=== PATIENT | male | born 1985 | race Caucasian/White ===

== ENCOUNTER → 2016-03-18 | Outpatient (POV) | LOC: OUTPT 00:01 | PROVIDERS: ATTEND Otolaryngology | DX: H91.90 Unspecified hearing loss, unspecified ear (principal) | CPT/HCPCS: 92557; 92567 ==

== ENCOUNTER 2016-03-22 08:52 | Emergency (ER) ==
[2016-03-22 09:00] VITALS: BP 120/78; TEMP 99.4; BMI 23.4
[2016-03-22] MEDS ORDERED: MORPHINE 4 MG/ML SYRINGE IVP STA ×2 (09:22→10:15)
--- NOTE | 2016-03-22 09:22 | ED.PDOC ---
General ED Provider: Dr. POLO LAWRENCE JR Chief Complaint: Abdominal Pain Stated Complaint: lower abd pain--pain when voids--noted blood in urine--has collected spec on arrival--urine is dark, trinh periumbilcal suprapubic and dysuric pain[End]99.4 125 20 99% 120/78 10/[address] WEISS THIS WEEK, HAS SEEN UROLOGIST FOR STONES IN PAST HAD OSTOMY AT [facility] REVERSED AT [place]. : 02/22/16 : hurting more in the belly for 2 days, Naalehu not helping. Radiology Results: Positive (COLITIS)WBC 14.34 HImmature Gran % (Auto) 1.7Amylase 165 H D Lipase 127 H DUrine Microscopic RBC 5-10. Hydromorphone HCl 1 mg 02/22/16 15:48 02/22/16 16:01. Dilaudid 1 Mg Zofran 4 Mg: Acute Abdominal Pain (ED)Patient is over medicating with pain medications, he took 60 Naalehu, in 6 days, also got Tramadol from the [facility] ER. : 03/10/16 t: c/o stabbing mid/right sided abdominal pain radiating to back.Nausea.Vomited x 3 this morning.Diarrhea x 2 today.Moaning.New onset of leg and knee pain,both legs.Left hurts more than right.Has Crohns,pancreatitis.Says was discharged from [facility] 03/06/16 for abd pain.Says lipase, amylase, WBC were elevated.[End]98.7 113 22 98% 115/68 12/22 none today.Out of Zofran.Says Phenergan works better but does not have any.[End]gradual RUQ periumbilical pain into back.: CT Scan (ABDOMEN NEG PANCREAS CONSIDEER OBSTIPATION OR EARLY COLITIS): 08:27 (DISC WITH dr tesfaye VAIL MEDS-GIVE 2 DAYSFOLLOW UP 1-2DAYS IN OFFICE ): DISC WITH DR TRAMMELL HAS NOT EVALUATED PATIENT- SEEN ORDERED TESTS MEDS OLD : 07:22 (OLD RECORDS REQUESTED). WBC 14.22 HImmature Gran % (Auto) 9.3 H Estimated GFR (MDRD) 114.00 Zofran 4 Mg Pantoprazole 40 mg. 03/10/16 05:57 98.7 F 113 H 22 115/68 98Additional Instructions: constipation is common with pain medication use;CT shows possible inflammation(swelling) which can be a sign of infection;FLAGYL antibiotic for infection- call GASTROENTEROLOGY about antibiotic BEFORE starting Constipation1- increase clear liquids2- help relieve symptoms with enema OR suppository NOT BOTH3- relieve constipation with miralax , would take half a dose twice a dayold records not yet seen from [facility] WITH DR MATHUR DISC LABS-OK WITH PAIN MEDS-2 DAYS AND FOLLOW UP WITHIN 1-2 DAYS IN OFFICE(ALREADY HAVE APPOINTMENT FOR WEDNESDAY)NORCO 7.5 #8 ONE ONLY NEEDEDNo Known Allergies Allergy (Verified 03/10/16 06:07)[Hydrocodon-Acetaminoph 7.5-325 ](Vitamin B-12)Bisacodyl [Naalehu 7.5-325 Tablet] [Flagyl][Miralax] Time Seen by Physician: 09:30 Mode of Arrival: Walk-In Information Source: Patient Exam Limitations: No limitations [facility] and Triage Documentation Reviewed and Agree: No Review of Systems - Review Of Systems Constitutional: Reports: Malaise Eyes: Reports: No symptoms Ears, Nose, Mouth, Throat: Reports: No symptoms Respiratory: Reports: No symptoms Cardiac: Reports: No symptoms GI: Reports: Abdominal pain : Reports: Burning, Dysuria, Frequency, Pain Musculoskeletal: Reports: No symptoms Skin: Reports: No symptoms Neurological: Reports: Anxiety Endocrine: Reports: No symptoms Hematologic/Lymphatic: Reports: No symptoms All Other Systems: Other Past Medical History - Past Medical History Previously Healthy: No Endocrine: Reports: None, Hypothyroid Cardiovascular: Reports: None Respiratory: Reports: None Hematological: Reports: None Gastrointestinal: Reports: Crohn's, Pancreatitis Genitourinary: Reports: Kidney stones Neuro/Psych: Reports: Depression Musculoskeletal: Reports: None Cancer: Reports: None Other Pertinent Past Medical History: CROHNS: freq ER visits with abd pain - Surgical History General Surgical History: Reports: Other (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) - Family History Family History: Reports: Unknown - Social History Smoking Status: Never smoker Hx Substance Use: No (freq ER visits with abd pain) Alcohol Screening: None Physical Exam - Physical Exam Appearance: Well-appearing Pain Distress: Moderate Eyes: DISHA, EOMI, Conjunctiva clear ENT: Ears normal, Nose normal, Oropharynx normal Neck: Supple Respiratory: Airway patent, Breath sounds clear, Breath sounds equal, Respirations nonlabored Cardiovascular: RRR, Pulses normal, No rub, No murmur GI/: Tender (LOWER ABDOMEN TENSE UNABLE TOPALPATE ANY MASSES ORGANS NOT RELIABLY DEMARCATED ON EXAM DUE TO PAIN), Bowel sounds hypoactive Musculoskeletal: Normal strength, ROM intact, No edema, No calf tenderness Skin: Warm, Dry, Normal color Neurological: Sensation intact, Motor intact, Reflexes intact, Cranial nerves intact, Alert, Oriented Psychiatric: Affect appropriate, Mood appropriate Critical Care Note - Critical Care Note Total Time (mins): 0 Course - Course Hematology/Chemistry: 03/22/16 09:30 03/22/16 09:30 Orders, Labs, Meds: Lab Review 03/22/16 03/22/16 09:20 09:30 WBC 10.26 H RBC 3.92 L Hgb 12.0 L Hct 36.1 L MCV 92.1 MCH 30.6 MCHC 33.2 RDW Coeff of Svitlana 14.4 Plt Count 197 Immature Gran % (Auto) 7.0 H Neut % (Auto) 63.6 Lymph % (Auto) 20.5 [place] % (Auto) 7.6 Eos % (Auto) 0.6 Baso % (Auto) 0.7 Immature Gran # (Auto) 0.7 Neut # 6.5 Lymph # 2.1 [place] # 0.8 Eos # 0.1 Baso # 0.1 Sodium 141 Potassium 4.1 Chloride 107 Carbon Dioxide 22 Anion Gap 16.1 BUN 16 Creatinine 0.88 Estimated GFR (MDRD) 100.00 BUN/Creatinine Ratio 18.18 Glucose 92 Calcium 9.0 Total Bilirubin 0.32 AST 11 L ALT 33 Alkaline Phosphatase 52 Total Protein 6.5 Albumin 3.7 Globulin 2.8 Albumin/Globulin Ratio 1.32 Amylase 76 Lipase 20 Urine Color Trinh Urine Clarity Turbid Urine pH 6.0 Ur Specific [place] >=1.030 Urine Protein 3+ Urine Glucose (UA) Negative Urine Ketones Trace Urine Blood 3+ Urine Nitrite Negative Urine Bilirubin 2+ Urine Urobilinogen 1.0 Ur Leukocyte Esterase Negative Urine Microscopic RBC Tntc Urine Microscopic WBC 2-5 Ur Squamous Epith Cells Not present Urine Bacteria Trace Orders Category Date Time Status ED IV/MEDIPORT/POWERPORT .ONCE EMERGENCY 03/22/16 09:22 Active AMYLASE Stat LAB 03/22/16 09:30 Completed CBC W/ AUTO DIFF Stat LAB 03/22/16 09:30 Completed COMPREHENSIVE METABOLIC PANEL Stat LAB 03/22/16 09:30 Completed LIPASE Stat LAB 03/22/16 09:30 Completed URINALYSIS C & S IF INDICATED Stat LAB 03/22/16 09:20 Completed 0.9 % Sodium Chloride [Saline Flush] MEDS 03/22/16 09:22 Active 1 syr IVF PRN PRN Morphine Sulfate [Morphine 4 mg/ml Syringe] MEDS 03/22/16 09:22 Discontinued 4 mg IVP ONCE STA Ondansetron HCl/Pf [Zofran 4 mg/2 ml] MEDS 03/22/16 09:23 Discontinued 4 mg IVP ONCE STA Sodium Chloride 0.9% [Sodium Chloride] 1,000 ml MEDS 03/22/16 09:[address] ABDOMEN/PELVIS WO CONTRAST Stat RADS 03/22/16 09:22 Completed Medications Generic Name Dose Route Start Last Admin Trade Name Freq PRN Reason Stop Dose Admin Sodium Chloride 1,000 mls @ 1,000 mls/hr 03/22/16 09:23 03/22/16 09:48 Sodium Chloride IV 03/22/16 10:22 1,000 mls/hr BOLUS STA Administration Sodium Chloride 1 syr 03/22/16 09:22 03/22/16 09:48 Saline Flush IVF 1 syr PRN PRN Administration To flush IV Discontinued Medications Generic Name Dose Route Start Last Admin Trade Name Freq PRN Reason Stop Dose Admin Morphine Sulfate 4 mg 03/22/16 09:22 03/22/16 09:51 Morphine 4 Mg/Ml Syringe IVP 03/22/16 09:23 4 mg ONCE STA Administration Ondansetron HCl 4 mg 03/22/16 09:23 03/22/16 09:50 Zofran 4 Mg/2 Ml IVP 03/22/16 09:24 4 mg ONCE STA Administration Vital Signs: Temp Pulse Resp BP Pulse Ox 03/22/16 08:52 99.4 F 125 H 20 120/78 99 Departure - Departure Time of Disposition: 10:11 Disposition: HOME SELF-CARE Discharge Problem: Abdominal pain Instructions: Abdominal Pain (ED), Chronic Abdominal Pain (ED) Condition: Stable Pt referred to PMD for follow-up: Yes Additional Instructions: NO EVIDENCE OF STONES ON CT SCAN BLOOD IN URINE WITHOUT INCREASE IN WHITE CELLS DOES NOT INDICATE INFECTION NOR FISTULA INFORM FIRE PREVENTION RESEARCH ENGINEER OF BLOOD IN URINE FOLLOW UP WITH UROLOGIST FOR BLOOD IN URINE FOLLOW UP WITH PMD- CALL TOMORROW FOR FOLLOW UP NORCO FOR PAIN IF OK WITH DR MATHUR ANTIBIOTICS ARE NOT INDICATED CHECK TEMPERATURE (AND RECORD) ONCE A DAY Allergies/Adverse Reactions: Allergies No Known Allergies Allergy (Verified 03/22/16 09:01) Home Medications: Ambulatory Orders Hydrocodone/Acetaminophen [Hydrocodon-Acetaminoph 7.5-325] 7.5 - 325 mg PO Q6H PRN 12/19/15 Cyanocobalamin (Vitamin B-12) [Cyanocobalamin Injection] 1 ea IM DIRECTED Metronidazole [Flagyl] 500 mg PO TID #21 tablet 03/10/16 Cyclobenzaprine HCl 10 mg PO BID PRN #30 03/18/16 Naproxen [Naprosyn] 500 mg PO BID PRN #50 03/18/16 Azathioprine [Imuran] 50 mg PO DAILY #2 03/19/16
[2016-03-22] MEDS ORDERED: ZOFRAN 4 MG/2 ML IVP STA (09:23)
[2016-03-22] MEDS ORDERED: SODIUM CHLORIDE 1,000 ML IV STA (09:23)
[2016-03-22 09:38] LABS: BASOPHILS # (AUTO) 0.1 K/uL (0-0.2); BASOPHILS % (AUTO) 0.7 % (0.0-3.0); EOSINOPHILS # (AUTO) 0.1 K/ul (0.0-0.7); EOSINOPHILS % (AUTO) 0.6 % (0.0-7.0); HEMATOCRIT 36.1 % (42.0-52.0); LYMPHOCYTES # (AUTO) 2.1 K/uL (0.60-3.4); LYMPHOCYTES % (AUTO) 20.5 (10.0-50.0); MEAN CORPUSCULAR HEMOGLOBIN 30.6 pg (27.0-31.0); MEAN CORPUSCULAR HGB CONC 33.2 (31.8-35.4); MEAN CORPUSCULAR VOLUME 92.1 fl (80.0-94.0); MONOCYTES # (AUTO) 0.8 K/uL (0.4-2.0); MONOCYTES % (AUTO) 7.6 (0-10); NEUTROPHILS # (AUTO) 6.5 K/ul (2.0-6.9); NEUTROPHILS % (AUTO) 63.6; PLATELET COUNT 197 10^3/uL (140-440); RED BLOOD COUNT 3.92 10^6/ul (4.70-6.10); WHITE BLOOD COUNT 10.26 K/ul (4.2-10.2)
[2016-03-22 09:40] LABS: BILIRUBIN,URINE 2+ (NEGATIVE); KETONES,URINE Trace (NEGATIVE); LEUKOCYTE ESTERASE ,URINE Negative (NEGATIVE); NITRITE,URINE Negative (NEGATIVE); PROTEIN,URINE 3+ (NEGATIVE); URINE, BLOOD 3+ (NEGATIVE)
[2016-03-22 09:55] LABS: ADD URINE MICROSCOPIC YES
[2016-03-22 09:56] LABS: BACTERIA,URINE TRACE (NOT PRESENT)
--- NOTE | 2016-03-22 09:56 | CT ---
EXAM: CT scan of the abdomen and pelvis without contrast HISTORY: Abdominal pain TECHNIQUE: Imaging of the abdomen and pelvis was performed without intravenous contrast. 3 mm thin axial images and coronal and sagittal reconstructions were provided for interpretation. Comparison 02/22/2016 and 02/04/2016 CT scan of the abdomen and pelvis. FINDINGS: The liver, spleen, pancreas, adrenal glands and kidneys appear normal. The proximal uret ers are normal size. The small and large bowel loops caliber. Changes of right hemicolectomy are ag ain seen. There is no free air. No acute abnormalities are seen within the anterior abdominal wall . The helical images obtained through the pelvis demonstrate an appearance of the rectum. There is sta ble appearance of reticulation of the fat seen surrounding the urinary bladder. There is no free fl uid seen within the pelvis. Lung bases are clear. IMPRESSION: No evidence for small bowel obstruction or ureteral obstruction. Postoperative changes of right hemicolectomy are again seen.
[2016-03-22 09:58] LABS: ALBUMIN 3.7 g/dL (3.4-5.0); ALBUMIN/GLOBULIN RATIO 1.32; ANION GAP 16.1; BILIRUBIN,TOTAL 0.32 mg/dL (0.00-1.20); BUN/CREATININE RATIO 18.18; CREATININE 0.88 mg/dL (0.60-1.10); POTASSIUM 4.1 mmol/L (3.5-5.1); TOTAL PROTEIN 6.5 g/dL (6.4-8.2)
== END 2016-03-22 10:34 | disposition home or self-care (01) ==
LOC: ED 08:52
DX: R10.84 Generalized abdominal pain (principal); R31.9 Hematuria, unspecified; Z79.891 Long term (current) use of opiate analgesic; Z87.19 Personal history of other diseases of the digestive system; Z87.442 Personal history of urinary calculi; Z79.899 Other long term (current) drug therapy
CPT/HCPCS: 36415; 80053; 81001; 82150; 83690; 85025; 96361; 96374; 96375; 99283

== ENCOUNTER 2016-03-30 18:37 | Outpatient (CLI) ==
[2016-03-30 18:56] LABS: HEMATOCRIT 40.2 % (42.0-52.0); HEMOGLOBIN 13.4 g/dl (14.0-18.0); MEAN CORPUSCULAR HEMOGLOBIN 30.9 pg (27.0-31.0); MEAN CORPUSCULAR HGB CONC 33.3 (31.8-35.4); MEAN CORPUSCULAR VOLUME 92.8 fl (80.0-94.0); PLATELET COUNT 232 10^3/uL (140-440); RED BLOOD COUNT 4.33 10^6/ul (4.70-6.10); WHITE BLOOD COUNT 9.38 K/ul (4.2-10.2)
[2016-03-30 19:09] LABS: ANISOCYTOSIS NOT PRESENT (NOT PRESENT)
[2016-03-30 19:11] LABS: ALBUMIN 4.2 g/dL (3.4-5.0); ALBUMIN/GLOBULIN RATIO 1.17; ANION GAP 16.2; BILIRUBIN,TOTAL 0.51 mg/dL (0.00-1.20); BUN/CREATININE RATIO 18.07; CALCIUM 10.1 mg/dL (8.2-10.2); CREATININE 0.83 mg/dL (0.60-1.10); POTASSIUM 4.2 mmol/L (3.5-5.1); TOTAL PROTEIN 7.8 g/dL (6.4-8.2)
== END 2016-03-30 18:38 | disposition home or self-care (01) ==
LOC: LAB 18:37
PROVIDERS: ATTEND General Practice
DX: R31.9 Hematuria, unspecified (principal)
CPT/HCPCS: 36415; 80053; 81001; 82150; 83690; 85007; 85025

== ENCOUNTER 2016-04-03 19:11 | Emergency (ER) ==
[2016-04-03 19:14] VITALS: BP 128/80; TEMP 96.2; BMI 23.3
--- NOTE | 2016-04-03 19:30 | ED.PDOC ---
General ED Provider: Dr. JULEE GONZALEZ-ER Chief Complaint: Rash Stated Complaint: rey got this rash on my neck and legs Time Seen by Physician: 19:28 Mode of Arrival: Walk-In Information Source: Patient Exam Limitations: No limitations [facility] Nursing and Triage Documentation Reviewed and Agree: Yes Skin Complaint Exam - Skin Rash/Itching Complaint/Exam Onset/Duration: one week Symptoms Are: Still present Initial Severity: Mild Current Severity: Mild Location: scalp, neck and legs Potential Exposures: Reports: Unknown Aggravating: Reports: None Alleviating: Reports: None Associated Signs and Symptoms: Denies: Difficulty breathing, Fever, Chills Skin Findings: Present: Pustules, Lesions Differential Diagnoses: Other Review of Systems - Review Of Systems Constitutional: Reports: No symptoms Eyes: Reports: No symptoms Ears, Nose, Mouth, Throat: Reports: No symptoms Respiratory: Reports: No symptoms Cardiac: Reports: No symptoms GI: Reports: No symptoms : Reports: No symptoms Musculoskeletal: Reports: No symptoms Skin: Reports: Rash (noted follicular rash) Neurological: Reports: No symptoms Endocrine: Reports: No symptoms Hematologic/Lymphatic: Reports: No symptoms All Other Systems: Reviewed and Negative Past Medical History - Past Medical History Previously Healthy: No Endocrine: Reports: None, Hypothyroid Cardiovascular: Reports: None Respiratory: Reports: None Hematological: Reports: None Gastrointestinal: Reports: Crohn's, Pancreatitis Genitourinary: Reports: Kidney stones Neuro/Psych: Reports: Depression Musculoskeletal: Reports: None Cancer: Reports: None Other Pertinent Past Medical History: CROHNS: freq ER visits with abd pain - Surgical History General Surgical History: Reports: Other (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) - Family History Family History: Reports: Unknown - Social History Smoking Status: Never smoker Hx Substance Use: No (freq ER visits with abd pain) Alcohol Screening: None Lives: With family Physical Exam - Physical Exam Appearance: Well-appearing, No pain distress, Well-nourished Eyes: DISHA, EOMI, Conjunctiva clear ENT: Ears normal, Nose normal, Oropharynx normal Neck: Supple Respiratory: Airway patent, Breath sounds clear, Breath sounds equal, Respirations nonlabored Cardiovascular: RRR, Pulses normal, No rub, No murmur GI/: Soft, Nontender, No masses, Bowel sounds normal, No Organomegaly Musculoskeletal: Normal strength, ROM intact, No edema, No calf tenderness Skin: Warm (noted follicular rash over scalp, neck and legs), Dry, Normal color Neurological: Sensation intact Psychiatric: Affect appropriate, Mood appropriate Critical Care Note - Critical Care Note Total Time (mins): 0 Course - Course Vital Signs: Temp Pulse Resp BP Pulse Ox 04/03/16 19:13 96.2 F L 115 H 16 128/80 98 Departure - Departure Time of Disposition: 19:30 Disposition: HOME SELF-CARE Discharge Problem: Folliculitis Instructions: Folliculitis (ED) Condition: Good Pt referred to PMD for follow-up: Yes Additional Instructions: minocin 50mg bid x 10 days--f/u with pcp Allergies/Adverse Reactions: Allergies No Known Allergies Allergy (Verified 04/03/16 19:15) Home Medications: Ambulatory Orders Hydrocodone/Acetaminophen [Hydrocodon-Acetaminoph 7.5-325] 7.5 - 325 mg PO Q6H PRN 12/19/15 Cyanocobalamin (Vitamin B-12) [Cyanocobalamin Injection] 1 ea IM DIRECTED Metronidazole [Flagyl] 500 mg PO TID #21 tablet 03/10/16 Naproxen [Naprosyn] 500 mg PO BID PRN #50 03/18/16 Azathioprine [Imuran] 50 mg PO DAILY #2 03/19/16 Hydrocodone/Acetaminophen [[place] 7.5-325 Tablet] 1 each PO QID PRN #6 tablet 10/29 Disposition Discussed With: Patient, Family
== END 2016-04-03 19:43 | disposition home or self-care (01) ==
LOC: ED 19:11
DX: L73.9 Follicular disorder, unspecified (principal)
CPT/HCPCS: 36415; 99283

== ENCOUNTER 2016-04-05 13:49 | Emergency (ER) ==
[2016-04-05 13:49] VITALS: BMI 23.3
[2016-04-05 13:54] VITALS: BP 132/84; TEMP 96.6
[2016-04-05 14:12] LABS: BASOPHILS % (AUTO) 0.2 % (0.0-3.0); EOSINOPHILS % (AUTO) 0.1 % (0.0-7.0); HEMATOCRIT 36.1 % (42.0-52.0); HEMOGLOBIN 12.2 g/dl (14.0-18.0); LYMPHOCYTES # (AUTO) 1.9 K/uL (0.60-3.4); LYMPHOCYTES % (AUTO) 20.2 (10.0-50.0); MEAN CORPUSCULAR HEMOGLOBIN 31.4 pg (27.0-31.0); MEAN CORPUSCULAR HGB CONC 33.8 (31.8-35.4); MONOCYTES # (AUTO) 0.5 K/uL (0.4-2.0); MONOCYTES % (AUTO) 4.9 (0-10); NEUTROPHILS # (AUTO) 6.7 K/ul (2.0-6.9); NEUTROPHILS % (AUTO) 73.6; PLATELET COUNT 195 10^3/uL (140-440); RED BLOOD COUNT 3.88 10^6/ul (4.70-6.10); WHITE BLOOD COUNT 9.14 K/ul (4.2-10.2)
--- NOTE | 2016-04-05 14:31 | CT ---
EXAM: CT abdomen and pelvis without contrast HISTORY: Upper abdominal pain through back. History of Crohn's and pancreatitis. Previous ostomy with reversal and previous intestinal resection. TECHNIQUE: Multi-slice transaxial helical with coronal and sagittal reformed images COMPARISON: CT abdomen/pelvis from 03/22/2016 FINDINGS: The lung bases are free of acute airspace or interstitial opacities. The heart size is no rmal. There are no pericardial or pleural effusions. The hepatic attenuation is normal relative to the spleen. The gallbladder is present without biliar y dilatation. The pancreas and adrenal glands are normal. A calcified granuloma is detected in the otherwise normal spleen. There is a small hemorrhagic or proteinaceous cyst at the interpolar region left kidney posteriorly measuring 2.5 mm. The kidneys are otherwise normal. No nephrolithiasis, ureterolithiasis, or urete ral pelvicaliectasis are appreciated. The nonopacified bladder is grossly normal. The prostate has normal size and attenuation. The intestines have normal caliber without evidence of obstruction or acute inflammation. There is suggestion of a previous right hemicolectomy with reanastomosis. No lymphadenopathy, free air, or f luid collections are detected. The aorta has normal caliber. The bones are free of suspicious osteolytic or osteoblastic lesions. IMPRESSION: 1. No nephrolithiasis, ureterolithiasis, or ureteral pelvicaliectasis. 2. Tiny hemorrhagic or proteinaceous cyst at the interpolar region of the left kidney measuring 2.5 mm. 3. Previous right hemicolectomy with reanastomosis. Nonobstructive intestinal gas pattern.
[2016-04-05 14:33] LABS: ALBUMIN 3.9 g/dL (3.4-5.0); ALBUMIN/GLOBULIN RATIO 1.26; ANION GAP 13.5; BILIRUBIN,TOTAL 0.55 mg/dL (0.00-1.20); BUN/CREATININE RATIO 13.88; CALCIUM 9.5 mg/dL (8.2-10.2); CREATININE 1.08 mg/dL (0.60-1.10); POTASSIUM 3.5 mmol/L (3.5-5.1)
--- NOTE | 2016-04-05 14:41 | ED.PDOC ---
General ED Provider: Dr. SHARAN MCHUGH Chief Complaint: Abdominal Pain Stated Complaint: abdominal pain Time Seen by Physician: 14:00 (EXAMINED AT ALL TIMES WITH KRYSTIAN AT BEDSIDE ) Mode of Arrival: Walk-In Information Source: Patient Exam Limitations: No limitations [facility] Nursing and Triage Documentation Reviewed and Agree: Yes GI Complaint Exam - Abdominal Pain Complaint/Exam Onset: Gradual Duration: 1 day typical pain for which pt has visited E/D BEFORE Symptoms Are: Still present Timing: Constant Initial Severity: Moderate Current Severity: Moderate Location of Pain: Diffuse Character: Reports: Cramping Aggravating: Reports: None Alleviating: Reports: None Associated Signs and Symptoms: Denies: Diaphoresis, Fever, Cough, Chest pain, Dizziness, Back pain, Constipation, Blood in stool, Dysuria, Urinary frequency, Decreased urine output, Decreased appetite, Discharge, Nausea, Vomiting, Diarrhea, Decreased activity Related History: Reports: Similar episode AAA Risk Factors: Reports: None Cardiac Risk Factors: Reports: None Testicular Torsion Risk Factors: Reports: None Surgical Obstruction Risk Factors: Reports: None Related Surgical History: Reports: None Abdominal Findings: Present: None Differential Diagnoses: Appendicitis, Bowel Obstruction, Constipation, Irritable Bowel Syndrome Review of Systems - Review Of Systems Constitutional: Reports: No symptoms Eyes: Reports: No symptoms Ears, Nose, Mouth, Throat: Reports: No symptoms Respiratory: Reports: No symptoms Cardiac: Reports: No symptoms GI: Reports: Abdominal pain : Reports: No symptoms Musculoskeletal: Reports: No symptoms Skin: Reports: No symptoms Neurological: Reports: No symptoms Endocrine: Reports: No symptoms Hematologic/Lymphatic: Reports: No symptoms All Other Systems: Reviewed and Negative Past Medical History - Past Medical History Previously Healthy: No Endocrine: Reports: None, Hypothyroid Cardiovascular: Reports: None Respiratory: Reports: None Hematological: Reports: None Gastrointestinal: Reports: Crohn's, Pancreatitis Genitourinary: Reports: Kidney stones Neuro/Psych: Reports: Depression Musculoskeletal: Reports: None Cancer: Reports: None Other Pertinent Past Medical History: CROHNS: freq ER visits with abd pain - Surgical History General Surgical History: Reports: Other (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) - Family History Family History: Reports: Unknown - Social History Smoking Status: Never smoker Hx Substance Use: No (freq ER visits with abd pain) Alcohol Screening: None Physical Exam - Physical Exam Appearance: Well-appearing, No pain distress, Well-nourished Eyes: DISHA, EOMI, Conjunctiva clear ENT: Ears normal, Nose normal, Oropharynx normal Respiratory: Airway patent, Breath sounds clear, Breath sounds equal, Respirations nonlabored Cardiovascular: RRR, Pulses normal, No rub, No murmur GI/: Soft, Nontender, No masses, Bowel sounds normal, No Organomegaly Musculoskeletal: Normal strength, ROM intact, No edema, No calf tenderness Skin: Warm, Dry, Normal color Neurological: Sensation intact, Motor intact, Reflexes intact, Cranial nerves intact, Alert, Oriented Psychiatric: Affect appropriate, Mood appropriate Interpretation - Radiology Interpretation Radiology Interpretation By: Radiologist Radiology Results: No acute changes Critical Care Note - Critical Care Note Total Time (mins): 0 Course - Course Hematology/Chemistry: 04/05/16 14:10 04/05/16 14:10 Orders, Labs, Meds: Lab Review 04/05/16 14:10 WBC 9.14 RBC 3.88 L Hgb 12.2 L Hct 36.1 L MCV 93.0 MCH 31.4 H MCHC 33.8 RDW Coeff of Svitlana 13.9 Plt Count 195 Immature Gran % (Auto) 1.0 Neut % (Auto) 73.6 Lymph % (Auto) 20.2 [place] % (Auto) 4.9 Eos % (Auto) 0.1 Baso % (Auto) 0.2 Immature Gran # (Auto) 0.1 Neut # 6.7 Lymph # 1.9 [place] # 0.5 Eos # 0.0 Baso # 0.0 Sodium 141 Potassium 3.5 Chloride 104 Carbon Dioxide 27 Anion Gap 13.5 BUN 15 Creatinine 1.08 Estimated GFR (MDRD) 79.00 BUN/Creatinine Ratio 13.88 Glucose 184 H Calcium 9.5 Total Bilirubin 0.55 AST 19 ALT 37 Alkaline Phosphatase 50 Total Protein 7.0 Albumin 3.9 Globulin 3.1 Albumin/Globulin Ratio 1.26 Amylase 42 Lipase 14 Orders Category Date Time Status AMYLASE Stat LAB 04/05/16 14:10 Completed CBC W/ AUTO DIFF Stat LAB 04/05/16 14:10 Completed COMPREHENSIVE METABOLIC PANEL Stat LAB 04/05/16 14:10 Completed LIPASE Stat LAB 04/05/16 14:[address] ABDOMEN/PELVIS WO CONTRAST Stat RADS 04/05/16 14:03 Completed Vital Signs: Temp Pulse Resp BP Pulse Ox 04/05/16 13:51 96.6 F L 82 20 132/84 97 Departure - Departure Time of Disposition: 14:40 (DISCHARGE INST GIVEN WITH SOBIA BOLAND AND CHONG PRESENT ) Disposition: HOME SELF-CARE Discharge Problem: Abdominal pain Instructions: Abdominal Pain (ED), Chronic Abdominal Pain (ED) Condition: Good Pt referred to PMD for follow-up: No Allergies/Adverse Reactions: Allergies No Known Allergies Allergy (Verified 04/03/16 19:15) Home Medications: Ambulatory Orders Hydrocodone/Acetaminophen [Hydrocodon-Acetaminoph 7.5-325] 7.5 - 325 mg PO Q6H PRN 12/19/15 Cyanocobalamin (Vitamin B-12) [Cyanocobalamin Injection] 1 ea IM DIRECTED Metronidazole [Flagyl] 500 mg PO TID #21 tablet 03/10/16 Naproxen [Naprosyn] 500 mg PO BID PRN #50 03/18/16 Azathioprine [Imuran] 50 mg PO DAILY #2 03/19/16
== END 2016-04-05 14:46 | disposition home or self-care (01) ==
LOC: ED 13:49
DX: R10.84 Generalized abdominal pain (principal); Z87.442 Personal history of urinary calculi; Z87.19 Personal history of other diseases of the digestive system; Z79.899 Other long term (current) drug therapy
CPT/HCPCS: 36415; 80053; 82150; 83690; 85025; 99283

== ENCOUNTER 2016-04-06 10:15 | Emergency (ER) ==
[2016-04-06 10:19] VITALS: TEMP 97.1; BMI 23.4
--- NOTE | 2016-04-06 11:14 | ED.PDOC ---
General ED Provider: Dr. SHARAN MCHUGH Chief Complaint: Abdominal Pain Stated Complaint: abdominal pain chronic Time Seen by Physician: 10:19 (chronic issue gemini at bedsie at all times ) Mode of Arrival: Walk-In Information Source: Patient Exam Limitations: No limitations [facility] Nursing and Triage Documentation Reviewed and Agree: Yes GI Complaint Exam - Abdominal Pain Complaint/Exam Onset: Gradual Duration: 1 day Symptoms Are: Still present Timing: Constant Initial Severity: Moderate Current Severity: Moderate Location of Pain: Diffuse Character: Reports: Cramping Aggravating: Reports: None Alleviating: Reports: None Associated Signs and Symptoms: Denies: Diaphoresis, Fever, Cough, Chest pain, Dizziness, Back pain, Constipation, Blood in stool, Dysuria, Urinary frequency, Decreased urine output, Decreased appetite, Discharge, Nausea, Vomiting, Diarrhea, Decreased activity Related History: Reports: Similar episode Cardiac Risk Factors: Reports: None Testicular Torsion Risk Factors: Reports: None Surgical Obstruction Risk Factors: Reports: None Related Surgical History: Reports: None Abdominal Findings: Present: None Differential Diagnoses: Irritable Bowel Syndrome Review of Systems - Review Of Systems Constitutional: Reports: No symptoms Eyes: Reports: No symptoms Ears, Nose, Mouth, Throat: Reports: No symptoms Respiratory: Reports: No symptoms Cardiac: Reports: No symptoms GI: Reports: Abdominal pain : Reports: No symptoms Musculoskeletal: Reports: No symptoms Skin: Reports: No symptoms Neurological: Reports: No symptoms Endocrine: Reports: No symptoms Hematologic/Lymphatic: Reports: No symptoms All Other Systems: Reviewed and Negative Past Medical History - Past Medical History Previously Healthy: No Endocrine: Reports: None, Hypothyroid Cardiovascular: Reports: None Respiratory: Reports: None Hematological: Reports: None Gastrointestinal: Reports: Crohn's, Pancreatitis Genitourinary: Reports: Kidney stones Neuro/Psych: Reports: Depression Musculoskeletal: Reports: None Cancer: Reports: None Other Pertinent Past Medical History: CROHNS: freq ER visits with abd pain - Surgical History General Surgical History: Reports: Other (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) - Family History Family History: Reports: Unknown - Social History Smoking Status: Never smoker Hx Substance Use: No (freq ER visits with abd pain) Alcohol Screening: None Physical Exam - Physical Exam Appearance: Well-appearing, No pain distress, Well-nourished Eyes: DISHA, EOMI, Conjunctiva clear ENT: Ears normal, Nose normal, Oropharynx normal Respiratory: Airway patent, Breath sounds clear, Breath sounds equal, Respirations nonlabored Cardiovascular: RRR, Pulses normal, No rub, No murmur GI/: Soft, Nontender, No masses, Bowel sounds normal, No Organomegaly Musculoskeletal: Normal strength, ROM intact, No edema, No calf tenderness Skin: Warm, Dry, Normal color Neurological: Sensation intact, Motor intact, Reflexes intact, Cranial nerves intact, Alert, Oriented Psychiatric: Affect appropriate, Mood appropriate Critical Care Note - Critical Care Note Total Time (mins): 0 Course - Course Hematology/Chemistry: 04/06/16 11:42 04/06/16 11:42 Orders, Labs, Meds: Lab Review 04/06/16 04/06/16 11:26 11:42 WBC 11.03 H RBC 4.04 L Hgb 12.7 L Hct 37.5 L MCV 92.8 MCH 31.4 H MCHC 33.9 RDW Coeff of Svitlana 13.7 Plt Count 195 Immature Gran % (Auto) 1.7 Neut % (Auto) 81.6 Lymph % (Auto) 11.9 [place] % (Auto) 4.4 Eos % (Auto) 0.1 Baso % (Auto) 0.3 Immature Gran # (Auto) 0.2 Neut # 9.0 H Lymph # 1.3 [place] # 0.5 Eos # 0.0 Baso # 0.0 Sodium 140 Potassium 3.5 Chloride 102 Carbon Dioxide 24 Anion Gap 17.5 BUN 14 Creatinine 1.06 Estimated GFR (MDRD) 81.00 BUN/Creatinine Ratio 13.20 Glucose 102 H D Calcium 9.9 Total Bilirubin 0.70 AST 27 ALT 42 Alkaline Phosphatase 52 Total Protein 7.2 Albumin 4.2 Globulin 3.0 Albumin/Globulin Ratio 1.40 Amylase 56 Lipase 28 Urine Color Yellow Urine Clarity Clear Urine pH 5.5 Ur Specific [place] 1.025 Urine Protein 1+ Urine Glucose (UA) Negative Urine Ketones 2+ Urine Blood 3+ Urine Nitrite Negative Urine Bilirubin 1+ Urine Urobilinogen 0.2 Ur Leukocyte Esterase Negative Urine Microscopic RBC 2-5 Urine Microscopic WBC 0-2 Ur Squamous Epith Cells Not present Orders Category Date Time Status AMYLASE Stat LAB 04/06/16 11:42 Completed CBC W/ AUTO DIFF Stat LAB 04/06/16 11:42 Completed COMPREHENSIVE METABOLIC PANEL Stat LAB 04/06/16 11:42 Completed LIPASE Stat LAB 01/23/17 11:42 Completed UA [URINALYSIS C & S IF INDICATED] Stat LAB 04/06/16 11:26 Completed Ketorolac Tromethamine [Toradol] MEDS 04/06/16 12:44 Discontinued 15 mg IVP ONCE STA Morphine Sulfate [Morphine 4 mg/ml Syringe] MEDS 04/06/16 11:32 Discontinued 2 mg IVP ONCE STA Morphine Sulfate [Morphine 4 mg/ml Syringe] MEDS 04/06/16 12:44 Discontinued 4 mg IVP ONCE STA Ondansetron HCl/Pf [Zofran 4 mg/2 ml] MEDS 04/06/16 11:32 Discontinued 4 mg IVP ONCE STA Ondansetron HCl/Pf [Zofran 4 mg/2 ml] MEDS 04/06/16 12:44 Discontinued 4 mg IVP ONCE STA CT ABDOMEN/PELVIS WO CONTRAST Stat RADS 04/06/16 11:32 Completed Medications Discontinued Medications Generic Name Dose Route Start Last Admin Trade Name Freq PRN Reason Stop Dose Admin Ketorolac Tromethamine 15 mg 04/06/16 12:44 04/06/16 13:00 Toradol IVP 04/06/16 12:45 Not Given ONCE STA Morphine Sulfate 2 mg 04/06/16 11:32 04/06/16 12:08 Morphine 4 Mg/Ml Syringe IVP 04/06/16 11:33 2 mg ONCE STA Administration Morphine Sulfate 4 mg 04/06/16 12:44 04/06/16 13:00 Morphine 4 Mg/Ml Syringe IVP 04/06/16 12:45 Not Given ONCE STA Ondansetron HCl 4 mg 04/06/16 11:32 04/06/16 12:07 Zofran 4 Mg/2 Ml IVP 04/06/16 11:33 4 mg ONCE STA Administration Ondansetron HCl 4 mg 04/06/16 12:44 04/06/16 13:00 Zofran 4 Mg/2 Ml IVP 04/06/16 12:45 Not Given ONCE STA Vital Signs: Temp Pulse Resp BP Pulse Ox 04/06/16 12:09 110 H 20 110/69 98 04/06/16 10:16 97.1 F L 124 H 16 106/62 98 Departure - Departure Time of Disposition: 11:13 (chronic pain issue refused to provide urine undersupervision of MD ) Disposition: HOME SELF-CARE Discharge Problem: Hematuria Abdominal pain Qualifiers: Abdominal location: generalized Qualifier Code: (R10.84) Generalized abdominal pain Instructions: Abdominal Pain (ED), Hematuria (ED) Condition: Good Pt referred to PMD for follow-up: No Additional Instructions: Please call your Family Physician as soon as possible to schedule a follow-up appointment. Allergies/Adverse Reactions: Allergies No Known Allergies Allergy (Verified 04/06/16 10:20) Home Medications: Ambulatory Orders Hydrocodone/Acetaminophen [Hydrocodon-Acetaminoph 7.5-325] 7.5 - 325 mg PO Q6H PRN 12/19/15 Cyanocobalamin (Vitamin B-12) [Cyanocobalamin Injection] 1 ea IM DIRECTED Metronidazole [Flagyl] 500 mg PO TID #21 tablet 03/10/16 Naproxen [Naprosyn] 500 mg PO BID PRN #50 03/18/16 Azathioprine [Imuran] 50 mg PO DAILY #2 03/19/16 Disposition Discussed With: Patient
[2016-04-06 11:28] LABS: BILIRUBIN,URINE 1+ (NEGATIVE); KETONES,URINE 2+ (NEGATIVE); LEUKOCYTE ESTERASE ,URINE Negative (NEGATIVE); NITRITE,URINE Negative (NEGATIVE); PH,URINE 5.5 (5-9); PROTEIN,URINE 1+ (NEGATIVE); URINE, BLOOD 3+ (NEGATIVE)
[2016-04-06 11:29] LABS: ADD URINE MICROSCOPIC YES
[2016-04-06] MEDS ORDERED: ZOFRAN 4 MG/2 ML IVP STA ×2 (11:32→12:44)
[2016-04-06] MEDS ORDERED: MORPHINE 4 MG/ML SYRINGE IVP STA ×2 (11:32→12:44)
[2016-04-06 11:44] LABS: BASOPHILS % (AUTO) 0.3 % (0.0-3.0); EOSINOPHILS % (AUTO) 0.1 % (0.0-7.0); HEMATOCRIT 37.5 % (42.0-52.0); HEMOGLOBIN 12.7 g/dl (14.0-18.0); IMMATURE GRANULOCYTE % (AUTO) 1.7 % (0.0-5.0); LYMPHOCYTES # (AUTO) 1.3 K/uL (0.60-3.4); LYMPHOCYTES % (AUTO) 11.9 (10.0-50.0); MEAN CORPUSCULAR HEMOGLOBIN 31.4 pg (27.0-31.0); MEAN CORPUSCULAR HGB CONC 33.9 (31.8-35.4); MEAN CORPUSCULAR VOLUME 92.8 fl (80.0-94.0); MONOCYTES # (AUTO) 0.5 K/uL (0.4-2.0); MONOCYTES % (AUTO) 4.4 (0-10); NEUTROPHILS % (AUTO) 81.6; PLATELET COUNT 195 10^3/uL (140-440); RED BLOOD COUNT 4.04 10^6/ul (4.70-6.10); WHITE BLOOD COUNT 11.03 K/ul (4.2-10.2)
[2016-04-06 12:07] LABS: ALBUMIN 4.2 g/dL (3.4-5.0); ALBUMIN/GLOBULIN RATIO 1.4; ANION GAP 17.5; BILIRUBIN,TOTAL 0.7 mg/dL (0.00-1.20); BUN/CREATININE RATIO 13.2; CALCIUM 9.9 mg/dL (8.2-10.2); CREATININE 1.06 mg/dL (0.60-1.10); POTASSIUM 3.5 mmol/L (3.5-5.1); TOTAL PROTEIN 7.2 g/dL (6.4-8.2)
[2016-04-06 12:10] VITALS: BP 110/69
[2016-04-06] MEDS ORDERED: TORADOL IVP STA (12:44)
--- NOTE | 2016-04-06 12:51 | CT ---
Noncontrasted CT examination of the abdomen pelvis. Comparison: 04/05/2016. Reason for study: Pain. FINDINGS: Within the partially imaged lung bases, no pneumothorax, pleural effusion, or focal conso lidation. The heart is not enlarged. Within the limitations of a noncontrast examination, the liver, spleen, gallbladder, adrenal glands, pancreas, and kidneys are unchanged. The previously described cyst in the left kidney is not signi ficantly changed from the prior exam. There is no focal bowel dilatation. Operative changes are seen in the right lower quadrant. There is air seen to the level of the rectum. Mildly increased size and number of the mesenteric lymph nodes. No intra-abdominal free air or pelvic free fluid. The osseous structures are unremarkable. Impression: 1. No acute findings are seen within the abdomen or pelvis. 2. Mildly increased size and number of the mesenteric lymph nodes may be reactive, mesenteritis, or enteritis.
== END 2016-04-06 13:41 | disposition home or self-care (01) ==
LOC: ED 10:15
DX: R10.84 Generalized abdominal pain (principal); G89.29 Other chronic pain; R31.9 Hematuria, unspecified
CPT/HCPCS: 36415; 80053; 81001; 82150; 83690; 85025; 96372; 99283

== ENCOUNTER 2016-04-26 06:41 | Emergency (ER) ==
[2016-04-26 06:53] VITALS: BP 98/76; TEMP 98.8; BMI 23.3
--- NOTE | 2016-04-26 07:27 | ED.PDOC ---
General ED Provider: Dr. POLO LAWRENCE JR Chief Complaint: Abdominal Pain Stated Complaint: C/O STABBING PAIN TO WHOLE ABD AREA,MORE PAIN IN MID ABD.STATES PAIN GOES THROUGH INTO THE RIGHT SIDE OF BACK.STATES EMESIS X3 THIS MORNING[End]98.8 111 20 99% 98/76 9/10 c/o recurrent pain ...seen in this er frequently for same problem[End] Time Seen by Physician: 07:25 Mode of Arrival: Walk-In Information Source: Patient Exam Limitations: No limitations [facility] Nursing and Triage Documentation Reviewed and Agree: No Review of Systems - Review Of Systems Constitutional: Reports: Malaise, Loss of appetite Eyes: Reports: No symptoms Ears, Nose, Mouth, Throat: Reports: No symptoms Respiratory: Reports: No symptoms Cardiac: Reports: No symptoms GI: Reports: Abdominal pain, Nausea, Vomiting : Reports: Pain Musculoskeletal: Reports: No symptoms Skin: Reports: No symptoms Neurological: Reports: No symptoms Endocrine: Reports: No symptoms Hematologic/Lymphatic: Reports: No symptoms All Other Systems: Other Past Medical History - Past Medical History Previously Healthy: No Endocrine: Reports: None, Hypothyroid, Dyslipidemia Cardiovascular: Reports: None Respiratory: Reports: None Hematological: Reports: None Gastrointestinal: Reports: GERD, Crohn's, Pancreatitis Genitourinary: Reports: Kidney stones Neuro/Psych: Reports: Depression Musculoskeletal: Reports: None Cancer: Reports: None Other Pertinent Past Medical History: CROHNS: freq ER visits with abd pain - Surgical History General Surgical History: Reports: Other (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, INTESTINAL RESECTION) - Family History Family History: Reports: Unknown - Social History Smoking Status: Never smoker Hx Substance Use: No (freq ER visits with abd pain) Alcohol Screening: None - Immunizations Tetanus Shot up to Date: Yes Physical Exam - Physical Exam Appearance: Ill-appearing, Thin Ill-appearing: Mild Pain Distress: Severe Eyes: DISHA, EOMI, Conjunctiva clear ENT: Ears normal, Nose normal, Oropharynx normal Neck: Supple Respiratory: Airway patent, Breath sounds clear, Breath sounds equal, Respirations nonlabored Cardiovascular: RRR, Pulses normal, No rub, No murmur GI/: No masses, Tender, Bowel sounds hypoactive Musculoskeletal: Normal strength, ROM intact, No edema, No calf tenderness Skin: Warm, Normal color, Diaphoretic Neurological: Sensation intact, Motor intact, Reflexes intact, Cranial nerves intact, Alert, Oriented Psychiatric: Anxious Re-Evaluation - Re-Evaluation Time of Re-Evaluation: 08:55 Status: Improved (STATES MS WEARING OFF- NOTE PATIETN NOT SEEING DR MATHUR PER PATIENT- WILL NEED PMD(INFORMED PATIETN "I DO NOT WANT FOR HIM TO COME TO ER)") Critical Care Note - Critical Care Note Total Time (mins): 20 Course - Course Hematology/Chemistry: 04/26/16 07:55 04/26/16 07:55 Orders, Labs, Meds: Lab Review 04/26/16 02 07:55 08:42 WBC 9.19 RBC 3.84 L Hgb 12.3 L Hct 34.8 L MCV 90.6 MCH 32.0 H MCHC 35.3 RDW Coeff of Svitl[place] 13.9 Plt Count 232 Immature Gran % (Auto) 0.4 Neut % (Auto) 68.5 Lymph % (Auto) 20.8 [place] % (Auto) 8.8 Eos % (Auto) 1.2 Baso % (Auto) 0.3 Immature Gran # (Auto) 0.0 Neut # 6.3 Lymph # 1.9 [place] # 0.8 Eos # 0.1 Baso # 0.0 Sodium 141 Potassium 3.7 Chloride 106 Carbon Dioxide 25 Anion Gap 13.7 BUN 8 Creatinine 0.87 Estimated GFR (MDRD) 102.00 BUN/Creatinine Ratio 9.19 Glucose 86 Calcium 9.2 Total Bilirubin 0.64 AST 45 H ALT 70 Alkaline Phosphatase 64 Total Protein 6.9 Albumin 4.0 Globulin 2.9 Albumin/Globulin Ratio 1.38 Amylase 54 Lipase 18 Procalcitonin < 0.05 Urine Color Yellow Urine Clarity Clear Urine pH 5.5 Ur Specific [place] 1.025 Urine Protein Negative Urine Glucose (UA) Negative Urine Ketones Negative Urine Blood Negative Urine Nitrite Negative Urine Bilirubin Negative Urine Urobilinogen 0.2 Ur Leukocyte Esterase Negative Orders Category Date Time Status EKG-(ED ONLY) Stat CARDIO 04/26/16 07:49 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 04/26/16 07:49 Active ED IV/MEDIPORT/POWERPORT .ONCE EMERGENCY 04/26/16 07:42 Active Wound care [ED WOUND CARE] .ONCE EMERGENCY 04/26/16 08:21 Inactive AMYLASE Stat LAB 04/26/16 07:55 Completed CBC W/ AUTO DIFF Stat LAB 04/26/16 07:55 Completed COMPREHENSIVE METABOLIC PANEL Stat LAB 04/26/16 07:55 Completed DRUG SCREEN, URINE, RAPID Stat LAB 04/26/16 07:49 Received LIPASE Stat LAB 04/26/16 07:55 Completed PROCALCITONIN Stat LAB 04/26/16 07:55 Completed URINALYSIS C & S IF INDICATED Stat LAB 04/26/16 08:42 Completed 0.9 % Sodium Chloride [Saline Flush] MEDS 04/26/16 07:42 Active 1 syr IVF PRN PRN Morphine Sulfate [Morphine 4 mg/ml Syringe] MEDS 04/26/16 07:43 Discontinued 4 mg IVP ONCE STA Morphine Sulfate [Morphine 4 mg/ml Syringe] MEDS 04/26/16 07:47 Discontinued 4 mg IVP ONCE STA Mupirocin [Bactroban] MEDS 04/26/16 08:22 Discontinued 1 applic TP ONCE STA Ondansetron HCl/Pf [Zofran 4 mg/2 ml] MEDS 04/26/16 07:43 Discontinued 4 mg IVP ONCE STA Sodium Chloride 0.9% [Sodium Chloride] 1,000 ml MEDS 04/26/16 07:[address] ABDOMEN/PELVIS WO CONTRAST Stat RADS 04/26/16 07:42 Completed Medications Generic Name Dose Route Start Last Admin Trade Name Freq PRN Reason Stop Dose Admin Sodium Chloride 1 syr 04/26/16 07:42 Saline Flush IVF PRN PRN To flush IV Discontinued Medications Generic Name Dose Route Start Last Admin Trade Name Freq PRN Reason Stop Dose Admin Sodium Chloride 1,000 mls @ 1,000 mls/hr 04/26/16 07:49 04/26/16 08:01 Sodium Chloride IV 04/26/16 08:48 1,000 mls/hr BOLUS STA Administration Morphine Sulfate 4 mg 04/26/16 07:43 04/26/16 08:14 Morphine 4 Mg/Ml Syringe IVP 04/26/16 07:44 4 mg ONCE STA Administration Morphine Sulfate 4 mg 04/26/16 07:47 Morphine 4 Mg/Ml Syringe IVP 04/26/16 07:48 ONCE STA Mupirocin 1 applic 04/26/16 08:22 Bactroban TP 04/26/16 08:23 ONCE STA Ondansetron HCl 4 mg 04/26/16 07:43 04/26/16 08:13 Zofran 4 Mg/2 Ml IVP 04/26/16 07:44 4 mg ONCE STA Administration Vital Signs: Temp Pulse Resp BP Pulse Ox 04/26/16 06:44 98.8 F 111 H 20 98/76 99 Departure - Departure Time of Disposition: 08:41 Disposition: HOME SELF-CARE Discharge Problem: Abdominal pain Instructions: Chronic Abdominal Pain (ED) Condition: Good Pt referred to PMD for follow-up: Yes Additional Instructions: call PMD in morning inform of pain medication prescription and arrange follow up may call Dr WEISS OFFICE IN MORNING - CONSIDER REFERRAL FOR PMD IF NO LOCAL PMD INFORM HERE OFFICE OF NEW CT ABDOMEN note increase lymph nodes in abdomen but CT scan otherwise normal check temperature twice a day and inform PMD of results AST is minimally elevated other labs are all normal Prescriptions: Hydrocodone Bit/Acetaminophen [[place] 7.5-325] 1 each PO Q6HR PRN #5 tablet PRN Reason: Severe Pain Ondansetron HCl [Zofran Tab] 4 mg PO QID PRN #12 tablet PRN Reason: Nausea / Vomiting Allergies/Adverse Reactions: Allergies No Known Allergies Allergy (Verified 04/26/16 07:02) Home Medications: Ambulatory Orders Hydrocodone/Acetaminophen [Hydrocodon-Acetaminoph 7.5-325] 7.5 - 325 mg PO Q6H PRN 12/19/15 Cyanocobalamin (Vitamin B-12) [Cyanocobalamin Injection] 1 ea IM DIRECTED Naproxen [Naprosyn] 500 mg PO BID PRN #50 03/18/16 Azathioprine [Imuran] 50 mg PO DAILY #2 03/19/16 Hydrocodone Bit/Acetaminophen [[place] 7.5-325] 1 each PO Q6HR PRN #5 tablet 04/26 Metronidazole [Flagyl] 500 mg PO BID 04/26/16 Ondansetron HCl [Zofran Tab] 4 mg PO QID PRN #12 tablet 04/26/16
[2016-04-26] MEDS ORDERED: MORPHINE 4 MG/ML SYRINGE IVP STA ×2 (07:43→07:47)
[2016-04-26] MEDS ORDERED: ZOFRAN 4 MG/2 ML IVP STA (07:43)
[2016-04-26] MEDS ORDERED: SODIUM CHLORIDE 1,000 ML IV STA (07:49)
[2016-04-26 08:02] LABS: BASOPHILS % (AUTO) 0.3 % (0.0-3.0); EOSINOPHILS # (AUTO) 0.1 K/ul (0.0-0.7); EOSINOPHILS % (AUTO) 1.2 % (0.0-7.0); HEMATOCRIT 34.8 % (42.0-52.0); HEMOGLOBIN 12.3 g/dl (14.0-18.0); IMMATURE GRANULOCYTE % (AUTO) 0.4 % (0.0-5.0); LYMPHOCYTES # (AUTO) 1.9 K/uL (0.60-3.4); LYMPHOCYTES % (AUTO) 20.8 (10.0-50.0); MEAN CORPUSCULAR HGB CONC 35.3 (31.8-35.4); MEAN CORPUSCULAR VOLUME 90.6 fl (80.0-94.0); MONOCYTES # (AUTO) 0.8 K/uL (0.4-2.0); MONOCYTES % (AUTO) 8.8 (0-10); NEUTROPHILS # (AUTO) 6.3 K/ul (2.0-6.9); NEUTROPHILS % (AUTO) 68.5; PLATELET COUNT 232 10^3/uL (140-440); RED BLOOD COUNT 3.84 10^6/ul (4.70-6.10); WHITE BLOOD COUNT 9.19 K/ul (4.2-10.2)
[2016-04-26 08:22] LABS: ALBUMIN/GLOBULIN RATIO 1.38; ANION GAP 13.7; BILIRUBIN,TOTAL 0.64 mg/dL (0.00-1.20); BUN/CREATININE RATIO 9.19; CALCIUM 9.2 mg/dL (8.2-10.2); CREATININE 0.87 mg/dL (0.60-1.10); POTASSIUM 3.7 mmol/L (3.5-5.1); TOTAL PROTEIN 6.9 g/dL (6.4-8.2)
[2016-04-26] MEDS ORDERED: BACTROBAN TP STA (08:22)
--- NOTE | 2016-04-26 08:35 | CT ---
Examination: Noncontrast helical CT examination of the abdomen pelvis. Comparison: 04/06/2016. Reason for study: Abdominal pain. FINDINGS: Examination is limited by the lack of intravenous or oral contrast administration. Within the partially imaged lung bases. There are no pneumothoraces, pleural effusions, focal conso lidation. The heart is not enlarged. Within the limitations of a noncontrasted study, the liver, spleen, adrenal glands, pancreas, and ga llbladder are unremarkable. There are small sub-centimeter hemorrhagic cyst seen within both kidneys. There is no focal bowel dilatation or transition point. Operative changes are seen after partial co lectomy. The majority of the large intestine is fluid-filled to the level of the rectosigmoid. Increase in size and number of the mesenteric lymph nodes suggesting enteritis. Impression: 1. Fluid-filled loops of large intestine without focal transition or wall thickening and prominent mesenteric lymph nodes consistent with enteritis. 2. Tiny hemorrhagic renal cysts. 3. Postoperative change.
[2016-04-26 08:52] LABS: BILIRUBIN,URINE Negative (NEGATIVE); KETONES,URINE Negative (NEGATIVE); LEUKOCYTE ESTERASE ,URINE Negative (NEGATIVE); NITRITE,URINE Negative (NEGATIVE); PH,URINE 5.5 (5-9); PROTEIN,URINE Negative (NEGATIVE); URINE, BLOOD Negative (NEGATIVE)
[2016-04-26 08:53] LABS: ADD URINE MICROSCOPIC NO
[2016-04-26 09:03] LABS: COCAIN SCREEN,URINE NEGATIVE (NEGATIVE)
== END 2016-04-26 09:05 | disposition home or self-care (01) ==
LOC: ED 06:41
DX: R10.84 Generalized abdominal pain (principal); G89.29 Other chronic pain; I88.0 Nonspecific mesenteric lymphadenitis; Z79.891 Long term (current) use of opiate analgesic; Z79.899 Other long term (current) drug therapy
CPT/HCPCS: 36415; 80053; 80306; 81001; 82150; 83690; 84145; 85025; 96361; 96374; 96375; 99283

== ENCOUNTER 2016-05-03 13:12 | Emergency (ER) ==
[2016-05-03 13:16] VITALS: BP 114/56; TEMP 98.8; BMI 23.9
--- NOTE | 2016-05-03 14:17 | ED.PDOC ---
General ED Provider: Dr. SHARAN MCHUGH Chief Complaint: Non-specific Complaint Stated Complaint: lump posterior scalp and right knee Time Seen by Physician: 13:13 Information Source: Patient Exam Limitations: No limitations [facility] and Triage Documentation Reviewed and Agree: Yes Musculoskeletal Complaint Exam - Knee Pain Complaint/Exam Mechanism of Injury: Reports: No known trauma (lump noted by pt 1 day ago) Onset/Duration: 13:12 Symptoms Are: Still present Initial Severity: Mild Current Severity: Mild Location: Reports: Discrete Character: Reports: Aching Alleviating: Reports: None Aggravating: Reports: None Associated Signs and Symptoms: Denies: Swelling, Redness, Bruising, Fever, Weakness, Numbness, Tingling Able to Bear Weight: Yes Related History: Reports: Similar episode Septic Arthritis Risk Factors: Reports: None Gout Risk Factors: Reports: None Yaritza Test Positive: No Marshal Test Positive: No Differential Diagnoses: Closed Fracture, [place]-Schlatter Disease, Sprain, Strain Review of Systems - Review Of Systems Constitutional: Reports: No symptoms Eyes: Reports: No symptoms Ears, Nose, Mouth, Throat: Reports: No symptoms Respiratory: Reports: No symptoms Cardiac: Reports: No symptoms GI: Reports: No symptoms : Reports: No symptoms Musculoskeletal: Reports: Joint pain Skin: Reports: No symptoms Neurological: Reports: No symptoms Endocrine: Reports: No symptoms Hematologic/Lymphatic: Reports: No symptoms All Other Systems: Reviewed and Negative Past Medical History - Past Medical History Previously Healthy: No Endocrine: Reports: None, Hypothyroid, Dyslipidemia Cardiovascular: Reports: None Respiratory: Reports: None Hematological: Reports: None Gastrointestinal: Reports: GERD, Crohn's, Pancreatitis Genitourinary: Reports: Kidney stones Neuro/Psych: Reports: Depression Musculoskeletal: Reports: None Cancer: Reports: None Other Pertinent Past Medical History: CROHNS: freq ER visits with abd pain - Surgical History General Surgical History: Reports: Other (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, INTESTINAL RESECTION) - Family History Family History: Reports: Unknown - Social History Smoking Status: Never smoker Hx Substance Use: No (freq ER visits with abd pain) Alcohol Screening: None Physical Exam - Physical Exam Appearance: Well-appearing, No pain distress, Well-nourished Eyes: DISHA, EOMI, Conjunctiva clear ENT: Ears normal, Nose normal, Oropharynx normal Respiratory: Airway patent, Breath sounds clear, Breath sounds equal, Respirations nonlabored Cardiovascular: RRR, Pulses normal, No rub, No murmur GI/: Soft, Nontender, No masses, Bowel sounds normal, No Organomegaly Musculoskeletal: Normal strength, ROM intact, No edema, No calf tenderness Skin: Warm, Dry, Normal color Neurological: Sensation intact, Motor intact, Reflexes intact, Cranial nerves intact, Alert, Oriented Psychiatric: Affect appropriate, Mood appropriate Critical Care Note - Critical Care Note Total Time (mins): 0 Course - Course Vital Signs: Temp Pulse Resp BP Pulse Ox 05/03/16 13:12 98.8 F 92 H 16 114/56 L 99 Departure - Departure Time of Disposition: 14:16 (isabella at bedside ) Disposition: HOME SELF-CARE Discharge Problem: Knee pain Instructions: Knee Pain (ED), Arthralgia (ED) Condition: Good Pt referred to PMD for follow-up: Yes Additional Instructions: Follow up before 10am on 05/04/2016 for ultrasound Allergies/Adverse Reactions: Allergies No Known Allergies Allergy (Verified 05/03/16 13:20) Home Medications: Ambulatory Orders Hydrocodone/Acetaminophen [Hydrocodon-Acetaminoph 7.5-325] 7.5 - 325 mg PO Q6H PRN 12/19/15 Cyanocobalamin (Vitamin B-12) [Cyanocobalamin Injection] 1 ea IM DIRECTED Ondansetron HCl [Zofran Tab] 4 mg PO QID PRN #12 tablet 04/26/16 Adalimumab [Humira] 40 mg SQ DIRECTED 05/03/16
== END 2016-05-03 14:33 | disposition home or self-care (01) ==
LOC: ED 13:12
DX: M25.569 Pain in unspecified knee (principal)
CPT/HCPCS: 99282

== ENCOUNTER 2016-05-10 10:43 | Emergency (ER) ==
[2016-05-10 10:48] VITALS: BP 120/62; TEMP 97.6; BMI 23.4
[2016-05-10] MEDS ORDERED: ZOFRAN 4 MG/2 ML IM STA (10:57)
[2016-05-10] MEDS ORDERED: DEMEROL 25 MG/ML SYRINGE IM STA (10:57)
--- NOTE | 2016-05-10 11:00 | ED.PDOC ---
General ED Provider: Dr. SANTIAGO DANIELS Chief Complaint: Abdominal Pain Stated Complaint: Abdominal pain, Dr hathaway dropped me, am not getting any pain medications now, started hurting since morning, same pain, just need help with pain, no diarrhea, has f/u with Gi next week, on ira Time Seen by Physician: 10:58 Mode of Arrival: Walk-In Information Source: Patient Primary Care Provider[facility] Nursing and Triage Documentation Reviewed and Agree: Yes GI Complaint Exam - Abdominal Pain Complaint/Exam Onset: Gradual Symptoms Are: Still present Timing: Constant Initial Severity: Moderate Current Severity: Moderate Location of Pain: Diffuse Character: Reports: Dull, Aching Aggravating: Reports: Movement Alleviating: Reports: Antacids Associated Signs and Symptoms: Reports: Nausea. Denies: Diaphoresis, Fever, Cough, Chest pain, Dizziness, Back pain, Constipation, Blood in stool, Dysuria, Urinary frequency, Decreased urine output, Decreased appetite, Discharge, Vomiting, Diarrhea, Decreased activity Related History: Reports: Similar episode AAA Risk Factors: Reports: None Cardiac Risk Factors: Reports: None Testicular Torsion Risk Factors: Reports: None Surgical Obstruction Risk Factors: Reports: None Related Surgical History: Reports: None Abdominal Findings: Absent: Pulsatile mass, Abdominal distention, Unequal femoral pulses Differential Diagnoses: Other (colitis with chronic pain.) Review of Systems - Review Of Systems Constitutional: Reports: No symptoms Eyes: Reports: No symptoms Ears, Nose, Mouth, Throat: Reports: No symptoms Respiratory: Reports: No symptoms Cardiac: Reports: No symptoms GI: Reports: Abdominal pain : Reports: No symptoms Musculoskeletal: Reports: No symptoms Skin: Reports: No symptoms Neurological: Reports: No symptoms Endocrine: Reports: No symptoms Hematologic/Lymphatic: Reports: No symptoms All Other Systems: Reviewed and Negative Past Medical History - Past Medical History Previously Healthy: No Endocrine: Reports: None, Hypothyroid, Dyslipidemia Cardiovascular: Reports: None Respiratory: Reports: None Hematological: Reports: None Gastrointestinal: Reports: GERD, Crohn's, Pancreatitis Genitourinary: Reports: Kidney stones Neuro/Psych: Reports: Depression Musculoskeletal: Reports: None Cancer: Reports: None Other Pertinent Past Medical History: CROHNS: freq ER visits with abd pain - Surgical History General Surgical History: Reports: Other (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, INTESTINAL RESECTION) - Family History Family History: Reports: Unknown - Social History Smoking Status: Never smoker Hx Substance Use: No (freq ER visits with abd pain) Alcohol Screening: None - Immunizations Tetanus Shot up to Date: Yes Physical Exam - Physical Exam Appearance: Well-appearing, Thin Eyes: DISHA, EOMI, Conjunctiva clear ENT: Ears normal, Nose normal, Oropharynx normal Respiratory: Airway patent, Breath sounds clear, Breath sounds equal, Respirations nonlabored Cardiovascular: RRR, Pulses normal, No rub, No murmur GI/: Soft, Tender, Bowel sounds hypoactive Musculoskeletal: Normal strength, ROM intact, No edema, No calf tenderness Skin: Warm, Dry, Normal color Neurological: Sensation intact, Motor intact, Reflexes intact, Cranial nerves intact, Alert, Oriented Psychiatric: Affect appropriate, Mood appropriate Critical Care Note - Critical Care Note Total Time (mins): 0 Course - Course Orders, Labs, Meds: Orders Category Date Time Status Meperidine HCl/Pf [Demerol 25 mg/ml Syringe] MEDS 05/10/16 10:57 Stat 25 mg IM ONCE STA Ondansetron HCl/Pf [Zofran 4 mg/2 ml] MEDS 05/10/16 10:57 Stat 4 mg IM ONCE STA Medications Discontinued Medications Generic Name Dose Route Start Last Admin Trade Name Freq PRN Reason Stop Dose Admin Meperidine HCl 25 mg 05/10/16 10:57 Demerol 25 Mg/Ml Syringe IM 05/10/16 10:58 ONCE STA Ondansetron HCl 4 mg 05/10/16 10:57 Zofran 4 Mg/2 Ml IM 05/10/16 10:58 ONCE STA Vital Signs: Temp Pulse Resp BP Pulse Ox 05/10/16 10:44 97.6 F 120 H 22 120/62 99 Departure - Departure Time of Disposition: 11:02 Disposition: HOME SELF-CARE Discharge Problem: Abdominal pain Instructions: Abdominal Pain (ED) Condition: Stable Pt referred to PMD for follow-up: Yes Additional Instructions: Increase hydration keep f/u with Gi Prescriptions: Hydrocodone/Acetaminophen [[place] 5-325 Tablet] 1 tab PO TID PRN #12 tablet PRN Reason: PAIN Allergies/Adverse Reactions: Allergies No Known Allergies Allergy (Verified 05/03/16 13:20) Home Medications: Ambulatory Orders Hydrocodone/Acetaminophen [Hydrocodon-Acetaminoph 7.5-325] 7.5 - 325 mg PO Q6H PRN 12/19/15 Cyanocobalamin (Vitamin B-12) [Cyanocobalamin Injection] 1 ea IM DIRECTED Ondansetron HCl [Zofran Tab] 4 mg PO QID PRN #12 tablet 04/26/16 Adalimumab [Humira] 40 mg SQ DIRECTED 05/03/16 Disposition Discussed With: Patient
== END 2016-05-10 11:38 | disposition home or self-care (01) ==
LOC: ED 10:43
DX: R10.84 Generalized abdominal pain (principal)
CPT/HCPCS: 96372; 99283

== ENCOUNTER 2016-05-17 04:32 | Emergency (ER) ==
[2016-05-17 04:32] VITALS: BMI 23.4
[2016-05-17 04:42] VITALS: BP 117/82; TEMP 97.5
[2016-05-17] MEDS ORDERED: TORADOL IM STA (05:05)
[2016-05-17 05:15] LABS: BASOPHILS % (AUTO) 0.3 % (0.0-3.0); EOSINOPHILS # (AUTO) 0.2 K/ul (0.0-0.7); EOSINOPHILS % (AUTO) 3.1 % (0.0-7.0); HEMATOCRIT 35.8 % (42.0-52.0); HEMOGLOBIN 12.7 g/dl (14.0-18.0); LYMPHOCYTES # (AUTO) 2.5 K/uL (0.60-3.4); LYMPHOCYTES % (AUTO) 35.3 (10.0-50.0); MEAN CORPUSCULAR HGB CONC 35.5 (31.8-35.4); MEAN CORPUSCULAR VOLUME 90.2 fl (80.0-94.0); MONOCYTES % (AUTO) 13.9 (0-10); NEUTROPHILS # (AUTO) 3.3 K/ul (2.0-6.9); NEUTROPHILS % (AUTO) 46.4; PLATELET COUNT 221 10^3/uL (140-440); RED BLOOD COUNT 3.97 10^6/ul (4.70-6.10); WHITE BLOOD COUNT 7.13 K/ul (4.2-10.2)
--- NOTE | 2016-05-17 05:29 | ED.PDOC ---
General ED Provider: Dr. URMILA TRAMMELL Chief Complaint: Abdominal Pain Stated Complaint: patient states he has had mid abdominal and right lower abdomeninal pain that started 2 days ago. states he has an APt with Dr Worthington in [place] in one month. Last week he told Dr Cerda that he had an Apt with Her this week. Has been to the ER for chronic pain multiple times and has had 23 Cts of the Abdomen since 2012. He is on Estephania for Crohn's disease Time Seen by Physician: 05:24 Mode of Arrival: Walk-In Information Source: Patient Exam Limitations: No limitations [facility] Nursing and Triage Documentation Reviewed and Agree: Yes GI Complaint Exam - Abdominal Pain Complaint/Exam Onset: Gradual Duration: 2 days Symptoms Are: Still present Timing: Constant Initial Severity: Moderate Current Severity: Severe Location of Pain: RLQ, Epigastric Radiates To: Reports: Back Character: Reports: Dull, Aching Aggravating: Reports: None Alleviating: Reports: None Associated Signs and Symptoms: Denies: Diaphoresis, Fever, Cough, Chest pain, Dizziness, Back pain, Constipation, Blood in stool, Dysuria, Urinary frequency, Decreased urine output, Decreased appetite, Discharge, Nausea, Vomiting, Diarrhea, Decreased activity AAA Risk Factors: Reports: None Cardiac Risk Factors: Reports: None Testicular Torsion Risk Factors: Reports: None Surgical Obstruction Risk Factors: Reports: None Related Surgical History: Reports: Bowel Resection, Kidney Stones Abdominal Findings: Absent: Rebound tenderness Differential Diagnoses: Pancreatitis Review of Systems - Review Of Systems Constitutional: Reports: No symptoms Eyes: Reports: No symptoms Ears, Nose, Mouth, Throat: Reports: No symptoms Respiratory: Reports: No symptoms Cardiac: Reports: No symptoms GI: Reports: Nausea, Vomiting. Denies: Diarrhea : Reports: No symptoms Musculoskeletal: Reports: No symptoms Skin: Reports: No symptoms Neurological: Reports: No symptoms Endocrine: Reports: No symptoms Hematologic/Lymphatic: Reports: No symptoms All Other Systems: Reviewed and Negative Past Medical History - Past Medical History Previously Healthy: No Endocrine: Reports: None, Hypothyroid, Dyslipidemia Cardiovascular: Reports: None Respiratory: Reports: None Hematological: Reports: None Gastrointestinal: Reports: GERD, Crohn's, Pancreatitis Genitourinary: Reports: Kidney stones Neuro/Psych: Reports: Depression Musculoskeletal: Reports: None Cancer: Reports: None Other Pertinent Past Medical History: CROHNS: freq ER visits with abd pain - Surgical History General Surgical History: Reports: Other (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, INTESTINAL RESECTION) - Family History Family History: Reports: Unknown - Social History Smoking Status: Never smoker Hx Substance Use: No (freq ER visits with abd pain) Alcohol Screening: None - Immunizations Tetanus Shot up to Date: Yes Physical Exam - Physical Exam Appearance: Ill-appearing Ill-appearing: Mild Pain Distress: Moderate ENT: Ears normal, Nose normal, Oropharynx normal Neck: Supple Respiratory: Airway patent, Breath sounds clear, Breath sounds equal, Respirations nonlabored Cardiovascular: RRR, Pulses normal, No rub, No murmur GI/: Soft, Tender (mild ) Musculoskeletal: Normal strength, ROM intact, No edema, No calf tenderness Skin: Warm, Dry, Normal color Neurological: Sensation intact, Motor intact, Alert, Oriented Psychiatric: Anxious Critical Care Note - Critical Care Note Total Time (mins): 0 Course - Course Hematology/Chemistry: 05/17/16 05:14 05/17/16 05:14 Orders, Labs, Meds: Lab Review 05/17/16 05:14 WBC 7.13 RBC 3.97 L Hgb 12.7 L Hct 35.8 L MCV 90.2 MCH 32.0 H MCHC 35.5 H RDW Coeff of Svitlana 12.8 Plt Count 221 Immature Gran % (Auto) 1.0 Neut % (Auto) 46.4 Lymph % (Auto) 35.3 [place] % (Auto) 13.9 H Eos % (Auto) 3.1 Baso % (Auto) 0.3 Immature Gran # (Auto) 0.1 Neut # 3.3 Lymph # 2.5 [place] # 1.0 Eos # 0.2 Baso # 0.0 Sodium 141 Potassium 3.7 Chloride 107 Carbon Dioxide 26 Anion Gap 11.7 BUN 12 Creatinine 0.94 Estimated GFR (MDRD) 93.00 BUN/Creatinine Ratio 12.76 Glucose 99 Calcium 9.3 Total Bilirubin 0.46 AST 31 ALT 66 Alkaline Phosphatase 76 Total Protein 7.2 Albumin 4.0 Globulin 3.2 Albumin/Globulin Ratio 1.25 Amylase 62 Lipase 25 Orders Category Date Time Status AMYLASE Stat LAB 05/17/16 05:14 Completed CBC W/ AUTO DIFF Stat LAB 05/17/16 05:14 Completed COMPREHENSIVE METABOLIC PANEL Stat LAB 05/17/16 05:14 Completed LIPASE Stat LAB 05/17/16 05:14 Completed URINALYSIS C & S IF INDICATED Stat LAB 05/17/16 05:04 Uncollected Dicyclomine Inj [Bentyl] MEDS 05/17/16 05:53 Stat 20 mg IM ONCE STA Ketorolac Tromethamine [Toradol] MEDS 05/17/16 05:05 Discontinued 60 mg IM ONCE STA Medications Generic Name Dose Route Start Last Admin Trade Name Freq PRN Reason Stop Dose Admin Dicyclomine HCl 20 mg 05/17/16 05:53 Bentyl IM 05/17/16 05:54 ONCE STA Discontinued Medications Generic Name Dose Route Start Last Admin Trade Name Freq PRN Reason Stop Dose Admin Ketorolac Tromethamine 60 mg 05/17/16 05:05 05/17/16 05:10 Toradol IM 05/17/16 05:06 60 mg ONCE STA Administration Vital Signs: Temp Pulse Resp BP Pulse Ox 05/17/16 04:37 97.5 F L 122 H 22 117/82 98 Departure - Departure Time of Disposition: 05:40 Disposition: HOME SELF-CARE Discharge Problem: Chronic abdominal pain Instructions: Chronic Abdominal Pain (ED) Condition: Good Pt referred to PMD for follow-up: Yes Additional Instructions: Keep APt with GI Doctor Take Nausea, medications as needed Push fluids go to the clinic to establish care for chronic pain management referral. Prescriptions: Dicyclomine HCl [Bentyl] 10 mg PO TID #30 capsule Tramadol HCl [Ultram] 50 mg PO Q6H PRN #20 tablet PRN Reason: Severe Pain Allergies/Adverse Reactions: Allergies No Known Allergies Allergy (Verified 05/17/16 04:37) Home Medications: Ambulatory Orders Hydrocodone/Acetaminophen [Hydrocodon-Acetaminoph 7.5-325] 7.5 - 325 mg PO Q6H PRN 12/19/15 Cyanocobalamin (Vitamin B-12) [Cyanocobalamin Injection] 1 ea IM DIRECTED Ondansetron HCl [Zofran Tab] 4 mg PO QID PRN #12 tablet 04/26/16 Adalimumab [Humira] 40 mg SQ DIRECTED 05/03/16 Dicyclomine HCl [Bentyl] 10 mg PO TID #30 capsule 05/17/16 Tramadol HCl [Ultram] 50 mg PO Q6H PRN #20 tablet 05/17/16 Disposition Discussed With: Patient
[2016-05-17 05:38] LABS: ALBUMIN/GLOBULIN RATIO 1.25; ANION GAP 11.7; BILIRUBIN,TOTAL 0.46 mg/dL (0.00-1.20); BUN/CREATININE RATIO 12.76; CALCIUM 9.3 mg/dL (8.2-10.2); CREATININE 0.94 mg/dL (0.60-1.10); POTASSIUM 3.7 mmol/L (3.5-5.1); TOTAL PROTEIN 7.2 g/dL (6.4-8.2)
[2016-05-17] MEDS ORDERED: BENTYL IM STA (05:53)
== END 2016-05-17 06:24 | disposition home or self-care (01) ==
LOC: ED 04:32
DX: R10.31 Right lower quadrant pain (principal); R10.13 Epigastric pain; G89.29 Other chronic pain; K50.90 Crohn's disease, unspecified, without complications; Z79.899 Other long term (current) drug therapy
CPT/HCPCS: 36415; 80053; 82150; 83690; 85025; 96372; 99283

== ENCOUNTER 2016-05-30 12:49 | Emergency (ER) ==
[2016-05-30 13:00] VITALS: BP 110/74; TEMP 98.9; BMI 24.5
[2016-05-30] MEDS ORDERED: TORADOL IM STA (13:09)
[2016-05-30] MEDS ORDERED: BENTYL IM STA (13:09)
--- NOTE | 2016-05-30 13:13 | ED.PDOC ---
General ED Provider: Dr. SANTIAGO DANIELS Chief Complaint: Abdominal Pain Stated Complaint: Chronic pain, come to er all the time, says the dr appointment is post poned again to next month. \ Time Seen by Physician: 13:00 Mode of Arrival: Walk-In Information Source: Patient [facility] Nursing and Triage Documentation Reviewed and Agree: Yes GI Complaint Exam - Abdominal Pain Complaint/Exam Onset: Gradual Symptoms Are: Still present Timing: Constant Initial Severity: Moderate Current Severity: Moderate Location of Pain: Discrete Character: Reports: Aching, Throbbing Aggravating: Reports: Movement, Food Alleviating: Reports: None Associated Signs and Symptoms: Denies: Diaphoresis, Fever, Cough, Chest pain, Dizziness, Back pain, Constipation, Blood in stool, Dysuria, Urinary frequency, Decreased urine output, Decreased appetite, Discharge, Nausea, Vomiting, Diarrhea, Decreased activity Related History: Reports: Similar episode AAA Risk Factors: Reports: None Cardiac Risk Factors: Reports: None Testicular Torsion Risk Factors: Reports: None Surgical Obstruction Risk Factors: Reports: None Related Surgical History: Reports: None Abdominal Findings: Absent: Pulsatile mass, Abdominal distention, Unequal femoral pulses Differential Diagnoses: Pancreatitis Review of Systems - Review Of Systems Constitutional: Reports: No symptoms Eyes: Reports: No symptoms Ears, Nose, Mouth, Throat: Reports: No symptoms Respiratory: Reports: No symptoms Cardiac: Reports: No symptoms GI: Reports: Abdominal pain : Reports: No symptoms Musculoskeletal: Reports: No symptoms Skin: Reports: No symptoms Neurological: Reports: No symptoms Endocrine: Reports: No symptoms Hematologic/Lymphatic: Reports: No symptoms All Other Systems: Reviewed and Negative Past Medical History - Past Medical History Previously Healthy: No Endocrine: Reports: None, Hypothyroid, Dyslipidemia Cardiovascular: Reports: None Respiratory: Reports: None Hematological: Reports: None Gastrointestinal: Reports: GERD, Crohn's, Pancreatitis Genitourinary: Reports: Kidney stones Neuro/Psych: Reports: Depression Musculoskeletal: Reports: None Cancer: Reports: None Other Pertinent Past Medical History: CROHNS: freq ER visits with abd pain - Surgical History General Surgical History: Reports: Other (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, INTESTINAL RESECTION) - Family History Family History: Reports: Unknown - Social History Smoking Status: Never smoker Hx Substance Use: (Frequent ER visits for pain med) Alcohol Screening: None Physical Exam - Physical Exam Appearance: Ill-appearing, Well-nourished Pain Distress: Mild Eyes: DISHA, EOMI, Conjunctiva clear ENT: Ears normal, Nose normal, Oropharynx normal Respiratory: Airway patent, Breath sounds clear, Breath sounds equal, Respirations nonlabored Cardiovascular: RRR, Pulses normal, No rub, No murmur GI/: Soft, Nontender, No masses, Bowel sounds normal, No Organomegaly Musculoskeletal: Normal strength, ROM intact, No edema, No calf tenderness Skin: Warm, Dry, Normal color Neurological: Sensation intact, Motor intact, Reflexes intact, Cranial nerves intact, Alert, Oriented Psychiatric: Affect appropriate, Mood appropriate Critical Care Note - Critical Care Note Total Time (mins): 0 Course - Course Hematology/Chemistry: 05/30/16 13:15 05/30/16 13:15 Orders, Labs, Meds: Lab Review 05/30/16 13:15 WBC 10.04 RBC 4.10 L Hgb 13.1 L Hct 36.9 L MCV 90.0 MCH 32.0 H MCHC 35.5 H RDW Coeff of Svitlana 12.6 Plt Count 216 Immature Gran % (Auto) 0.5 Neut % (Auto) 64.8 Lymph % (Auto) 22.7 [place] % (Auto) 9.7 Eos % (Auto) 2.0 Baso % (Auto) 0.3 Immature Gran # (Auto) 0.1 Neut # 6.5 Lymph # 2.3 [place] # 1.0 Eos # 0.2 Baso # 0.0 Sodium 137 Potassium 4.0 Chloride 108 H Carbon Dioxide 20 L Anion Gap 13.0 BUN 17 Creatinine 0.94 Estimated GFR (MDRD) 93.00 BUN/Creatinine Ratio 18.08 Glucose 90 Calcium 9.6 Total Bilirubin 0.44 AST 31 ALT 57 Alkaline Phosphatase 84 Total Protein 7.6 Albumin 4.3 Globulin 3.3 Albumin/Globulin Ratio 1.30 Amylase 81 Lipase 30 Orders Category Date Time Status AMYLASE Stat LAB 05/30/16 13:15 Completed CBC W/ AUTO DIFF Stat LAB 05/30/16 13:15 Completed COMPREHENSIVE METABOLIC PANEL Stat LAB 05/30/16 13:15 Completed LIPASE Stat LAB 05/30/16 13:15 Completed Dicyclomine Inj [Bentyl] MEDS 05/30/16 13:09 Discontinued 20 mg IM ONCE STA Ketorolac Tromethamine [Toradol] MEDS 05/30/16 13:09 Discontinued 60 mg IM ONCE STA Medications Discontinued Medications Generic Name Dose Route Start Last Admin Trade Name [place]peranza PRN Reason Stop Dose Admin Dicyclomine HCl 20 mg 05/30/16 13:09 05/30/16 13:57 Bentyl IM 05/30/16 13:10 20 mg ONCE STA Administration Ketorolac Tromethamine 60 mg 05/30/16 13:09 05/30/16 13:59 Toradol IM 05/30/16 13:10 60 mg ONCE STA Administration Vital Signs: Temp Pulse Resp BP Pulse Ox 05/30/16 12:52 98.9 F 94 H 20 110/74 98 Departure - Departure Time of Disposition: 13:12 Disposition: HOME SELF-CARE Discharge Problem: Abdominal pain Instructions: Abdominal Pain (ED) Condition: Stable Pt referred to PMD for follow-up: Yes Additional Instructions: Increase hydration advised to see PMD, which patient keeps changing the appointment date. Prescriptions: Diphenhydramine HCl [Benadryl] 25 mg PO Q6H #14 capsule Tramadol HCl 50 mg PO BID #14 tablet Allergies/Adverse Reactions: Allergies No Known Allergies Allergy (Verified 05/17/16 04:37) Home Medications: Ambulatory Orders Hydrocodone/Acetaminophen [Hydrocodon-Acetaminoph 7.5-325] 7.5 - 325 mg PO Q6H PRN 12/19/15 Cyanocobalamin (Vitamin B-12) [Cyanocobalamin Injection] 1 ea IM DIRECTED Ondansetron HCl [Zofran Tab] 4 mg PO QID PRN #12 tablet 04/26/16 Adalimumab [Humira] 40 mg SQ DIRECTED 05/03/16 Dicyclomine HCl [Bentyl] 10 mg PO TID #30 capsule 05/17/16 Tramadol HCl [Ultram] 50 mg PO Q6H PRN #20 tablet 05/17/16 Diphenhydramine HCl [Benadryl] 25 mg PO Q6H #14 capsule 05/30/16 Tramadol HCl 50 mg PO BID #14 tablet 05/30/16 Disposition Discussed With: Patient
[2016-05-30 13:23] LABS: BASOPHILS % (AUTO) 0.3 % (0.0-3.0); EOSINOPHILS # (AUTO) 0.2 K/ul (0.0-0.7); HEMATOCRIT 36.9 % (42.0-52.0); HEMOGLOBIN 13.1 g/dl (14.0-18.0); IMMATURE GRANULOCYTE % (AUTO) 0.5 % (0.0-5.0); LYMPHOCYTES # (AUTO) 2.3 K/uL (0.60-3.4); LYMPHOCYTES % (AUTO) 22.7 (10.0-50.0); MEAN CORPUSCULAR HGB CONC 35.5 (31.8-35.4); MONOCYTES % (AUTO) 9.7 (0-10); NEUTROPHILS # (AUTO) 6.5 K/ul (2.0-6.9); NEUTROPHILS % (AUTO) 64.8; PLATELET COUNT 216 10^3/uL (140-440); WHITE BLOOD COUNT 10.04 K/ul (4.2-10.2)
[2016-05-30 13:43] LABS: ALBUMIN 4.3 g/dL (3.4-5.0); ALBUMIN/GLOBULIN RATIO 1.3; BILIRUBIN,TOTAL 0.44 mg/dL (0.00-1.20); BUN/CREATININE RATIO 18.08; CALCIUM 9.6 mg/dL (8.2-10.2); CREATININE 0.94 mg/dL (0.60-1.10); TOTAL PROTEIN 7.6 g/dL (6.4-8.2)
== END 2016-05-30 14:19 | disposition home or self-care (01) ==
LOC: ED 12:49
DX: R10.9 Unspecified abdominal pain (principal); G89.29 Other chronic pain; Z79.899 Other long term (current) drug therapy
CPT/HCPCS: 36415; 80053; 82150; 83690; 85025; 96372; 99283

== ENCOUNTER 2016-06-11 08:17 | Emergency (ER) ==
[2016-06-11 08:20] VITALS: BP 118/83; TEMP 97.6; BMI 23.9
--- NOTE | 2016-06-11 08:35 | ED.PDOC ---
General ED Provider: Dr. POLO LAWRENCE JR Chief Complaint: Non-specific Complaint Stated Complaint: patient states he has had bodyaches and low back pain. states his stomach has been hurting also but this is a chronic condition for patient.[End]97.6 89 16 98% 118/83 08/22 patient c/o bodyaches and states he is having low back pain. states also having abd. pain that is "pulsing." good bowel sounds and abd. is soft. patient states tender to ruq with palpation but is having some pain in left lower side also. [ End ] Time Seen by Physician: 08:36 Mode of Arrival: Walk-In Information Source: Patient Exam Limitations: No limitations [facility] Nursing and Triage Documentation Reviewed and Agree: No Review of Systems - Review Of Systems Constitutional: Reports: Malaise Eyes: Reports: No symptoms Ears, Nose, Mouth, Throat: Reports: No symptoms Respiratory: Reports: No symptoms Cardiac: Reports: No symptoms GI: Reports: Abdominal pain, Nausea, Vomiting : Reports: No symptoms Musculoskeletal: Reports: No symptoms Skin: Reports: No symptoms Neurological: Reports: No symptoms Endocrine: Reports: No symptoms Hematologic/Lymphatic: Reports: No symptoms All Other Systems: Other Past Medical History - Past Medical History Previously Healthy: No Endocrine: Reports: None, Hypothyroid, Dyslipidemia Cardiovascular: Reports: None Respiratory: Reports: None Hematological: Reports: None Gastrointestinal: Reports: GERD, Crohn's, Pancreatitis Genitourinary: Reports: Kidney stones Neuro/Psych: Reports: Depression Musculoskeletal: Reports: None Cancer: Reports: None - Surgical History General Surgical History: Reports: Other (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, INTESTINAL RESECTION) - Family History Family History: Reports: Unknown - Social History Smoking Status: Never smoker Hx Substance Use: (Frequent ER visits for pain med) Alcohol Screening: None Physical Exam - Physical Exam Appearance: Well-appearing, Thin Ill-appearing: Moderate Pain Distress: Moderate Eyes: DISHA ENT: Ears normal, Nose normal, Oropharynx normal Neck: Supple Respiratory: Airway patent, Breath sounds clear, Breath sounds equal, Respirations nonlabored Cardiovascular: RRR, Pulses normal, No rub, No murmur GI/: Soft, Tender (RUQ without rebound LLQ without rebound good bowel sounds thoughout) Musculoskeletal: Normal strength, ROM intact, No edema, No calf tenderness Skin: Warm, Dry, Normal color Neurological: Sensation intact, Motor intact, Reflexes intact, Cranial nerves intact, Alert, Oriented Psychiatric: Affect appropriate, Mood appropriate Critical Care Note - Critical Care Note Total Time (mins): 0 Course - Course Hematology/Chemistry: 06/11/16 08:55 06/11/16 08:55 Orders, Labs, Meds: Lab Review 06/11/16 06/11/16 08:55 09:06 WBC 6.02 RBC 4.27 L Hgb 13.4 L Hct 38.0 L MCV 89.0 MCH 31.4 H MCHC 35.3 RDW Coeff of Svitlana 12.2 Plt Count 203 Immature Gran % (Auto) 1.5 Neut % (Auto) 51.0 Lymph % (Auto) 35.0 [place] % (Auto) 8.8 Eos % (Auto) 3.2 Baso % (Auto) 0.5 Immature Gran # (Auto) 0.1 Neut # 3.1 Lymph # 2.1 [place] # 0.5 Eos # 0.2 Baso # 0.0 Sodium 140 Potassium 3.3 L Chloride 108 H Carbon Dioxide 23 Anion Gap 12.3 BUN 10 Creatinine 0.96 Estimated GFR (MDRD) 91.00 BUN/Creatinine Ratio 10.41 Glucose 92 Calcium 9.5 Total Bilirubin 0.38 AST 30 ALT 70 Alkaline Phosphatase 88 Total Protein 7.7 Albumin 4.3 Globulin 3.4 Albumin/Globulin Ratio 1.26 Amylase 65 Lipase 20 Urine Color Yellow Urine Clarity Clear Urine pH 5.5 Ur Specific [place] 1.025 Urine Protein 1+ Urine Glucose (UA) Negative Urine Ketones Negative Urine Blood Trace-lysed Urine Nitrite Negative Urine Bilirubin Negative Urine Urobilinogen 0.2 Ur Leukocyte Esterase Negative Urine Microscopic RBC 0-2 Ur Squamous Epith Cells Not present Urine Mucus 1+ Orders Category Date Time Status ED IV/MEDIPORT/POWERPORT .ONCE EMERGENCY 06/11/16 08:46 Active AMYLASE Stat LAB 06/11/16 08:55 Completed CBC W/ AUTO DIFF Stat LAB 06/11/16 08:55 Completed COMPREHENSIVE METABOLIC PANEL Stat LAB 06/11/16 08:55 Completed LIPASE Stat LAB 06/11/16 08:55 Completed URINALYSIS C & S IF INDICATED Stat LAB 06/11/16 09:06 Completed 0.9 % Sodium Chloride [Saline Flush] MEDS 06/11/16 08:46 Discontinued 1 syr IVF PRN PRN Ketorolac Tromethamine [Toradol] MEDS 06/11/16 08:47 Discontinued 30 mg IVP ONCE STA Ondansetron HCl/Pf [Zofran 4 mg/2 ml] MEDS 06/11/16 08:47 Discontinued 4 mg IVP ONCE STA Sodium Chloride 0.9% [Sodium Chloride] 1,000 ml MEDS 06/11/16 08:47 Discontinued IV BOLUS Medications Discontinued Medications Generic Name Dose Route Start Last Admin Trade Name Freq PRN Reason Stop Dose Admin Sodium Chloride 1,000 mls @ 1,000 mls/hr 06/11/16 08:47 06/11/16 09:35 Sodium Chloride IV 06/11/16 09:46 1,000 mls/hr BOLUS STA Administration Ketorolac Tromethamine 30 mg 06/11/16 08:47 06/11/16 09:45 Toradol IVP 06/11/16 08:48 30 mg ONCE STA Administration Ondansetron HCl 4 mg 06/11/16 08:47 06/11/16 09:44 Zofran 4 Mg/2 Ml IVP 06/11/16 08:48 4 mg ONCE STA Administration Sodium Chloride 1 syr 06/11/16 08:46 06/11/16 09:46 Saline Flush IVF 1 syr PRN PRN Administration To flush IV Vital Signs: Temp Pulse Resp BP Pulse Ox 06/11/16 08:17 97.6 F 89 16 118/83 98 Departure - Departure Time of Disposition: 09:40 Disposition: HOME SELF-CARE Discharge Problem: Abdominal pain Qualifiers: Abdominal location: right upper quadrant Qualifier Code: (R10.11) Right upper quadrant pain Instructions: Abdominal Pain (ED) Condition: Good Pt referred to PMD for follow-up: Yes Additional Instructions: follow up PMD need to have regular physician to control medications may follow up with Dr Arriaga as planned may try zofran or phenergan fo rnausea Prescriptions: Hydrocodone Bit/Acetaminophen [[place] 5-325] 1 - 2 tab PO Q6HR PRN #4 tablet PRN Reason: pain Ondansetron HCl [Zofran Tab] 4 mg PO QID PRN #12 tablet PRN Reason: Nausea / Vomiting Potassium Chloride [K-Dur] 20 meq PO BID #30 tab Promethazine HCl [Phenergan Tab] 25 mg PO QID PRN #12 tablet PRN Reason: Nausea / Vomiting Allergies/Adverse Reactions: Allergies No Known Allergies Allergy (Verified 06/11/16 08:22) Home Medications: Ambulatory Orders Cyanocobalamin (Vitamin B-12) [Cyanocobalamin Injection] 1 ea IM DIRECTED Ondansetron HCl [Zofran Tab] 4 mg PO QID PRN #12 tablet 04/26/16 Adalimumab [Humira] 40 mg SQ DIRECTED 05/03/16 Hydrocodone Bit/Acetaminophen [[place] 5-325] 1 - 2 tab PO Q6HR PRN #4 tablet Ondansetron HCl [Zofran Tab] 4 mg PO QID PRN #12 tablet 06/11/16 Potassium Chloride [K-Dur] 20 meq PO BID #30 tab 06/11/16 Promethazine HCl [Phenergan Tab] 25 mg PO QID PRN #12 tablet 06/11/16
[2016-06-11] MEDS ORDERED: TORADOL IVP STA (08:47)
[2016-06-11] MEDS ORDERED: SODIUM CHLORIDE 1,000 ML IV STA (08:47)
[2016-06-11] MEDS ORDERED: ZOFRAN 4 MG/2 ML IVP STA (08:47)
[2016-06-11 09:09] LABS: BASOPHILS % (AUTO) 0.5 % (0.0-3.0); EOSINOPHILS # (AUTO) 0.2 K/ul (0.0-0.7); EOSINOPHILS % (AUTO) 3.2 % (0.0-7.0); HEMOGLOBIN 13.4 g/dl (14.0-18.0); IMMATURE GRANULOCYTE % (AUTO) 1.5 % (0.0-5.0); LYMPHOCYTES # (AUTO) 2.1 K/uL (0.60-3.4); MEAN CORPUSCULAR HEMOGLOBIN 31.4 pg (27.0-31.0); MEAN CORPUSCULAR HGB CONC 35.3 (31.8-35.4); MONOCYTES # (AUTO) 0.5 K/uL (0.4-2.0); MONOCYTES % (AUTO) 8.8 (0-10); NEUTROPHILS # (AUTO) 3.1 K/ul (2.0-6.9); PLATELET COUNT 203 10^3/uL (140-440); RED BLOOD COUNT 4.27 10^6/ul (4.70-6.10); WHITE BLOOD COUNT 6.02 K/ul (4.2-10.2)
[2016-06-11 09:16] LABS: BILIRUBIN,URINE Negative (NEGATIVE); KETONES,URINE Negative (NEGATIVE); LEUKOCYTE ESTERASE ,URINE Negative (NEGATIVE); NITRITE,URINE Negative (NEGATIVE); PH,URINE 5.5 (5-9); PROTEIN,URINE 1+ (NEGATIVE); URINE, BLOOD Trace-lysed (NEGATIVE)
[2016-06-11 09:27] LABS: ADD URINE MICROSCOPIC YES
[2016-06-11 09:31] LABS: ALBUMIN 4.3 g/dL (3.4-5.0); ALBUMIN/GLOBULIN RATIO 1.26; ANION GAP 12.3; BILIRUBIN,TOTAL 0.38 mg/dL (0.00-1.20); BUN/CREATININE RATIO 10.41; CALCIUM 9.5 mg/dL (8.2-10.2); CREATININE 0.96 mg/dL (0.60-1.10); POTASSIUM 3.3 mmol/L (3.5-5.1); TOTAL PROTEIN 7.7 g/dL (6.4-8.2)
== END 2016-06-11 11:03 | disposition home or self-care (01) ==
LOC: ED 08:17
DX: R10.11 Right upper quadrant pain (principal); G89.29 Other chronic pain; R11.2 Nausea with vomiting, unspecified; R10.32 Left lower quadrant pain; M54.5 Low back pain; R52 Pain, unspecified; Z79.899 Other long term (current) drug therapy
CPT/HCPCS: 36415; 80053; 81001; 82150; 83690; 85025; 96374; 96375; 99283

== ENCOUNTER 2016-06-13 11:00 | Emergency (ER) ==
[2016-06-13 11:06] VITALS: BP 125/87; TEMP 98.2; BMI 24.6
[2016-06-13] MEDS ORDERED: BENTYL IM STA (11:17)
--- NOTE | 2016-06-13 11:28 | ED.PDOC ---
General ED Provider: Dr. SHARAN MCHUGH Chief Complaint: Abdominal Pain Stated Complaint: abdominal pain Time Seen by Physician: 11:00 Mode of Arrival: Walk-In Information Source: Patient Exam Limitations: No limitations Nursing and Triage Documentation Reviewed and Agree: Yes GI Complaint Exam - Abdominal Pain Complaint/Exam Onset: Gradual Duration: chronic Symptoms Are: Still present Initial Severity: Moderate Current Severity: Moderate Location of Pain: Diffuse Aggravating: Reports: None Alleviating: Reports: None Associated Signs and Symptoms: Denies: Diaphoresis, Fever, Cough, Chest pain, Dizziness, Back pain, Constipation, Blood in stool, Dysuria, Urinary frequency, Decreased urine output, Decreased appetite, Discharge, Nausea, Vomiting, Diarrhea, Decreased activity Related History: Reports: Similar episode AAA Risk Factors: Reports: None Cardiac Risk Factors: Reports: None Testicular Torsion Risk Factors: Reports: None Surgical Obstruction Risk Factors: Reports: None Related Surgical History: Reports: None Abdominal Findings: Present: None Review of Systems - Review Of Systems Constitutional: Reports: No symptoms Eyes: Reports: No symptoms Ears, Nose, Mouth, Throat: Reports: No symptoms Respiratory: Reports: No symptoms Cardiac: Reports: No symptoms GI: Reports: Abdominal pain : Reports: No symptoms Musculoskeletal: Reports: No symptoms Skin: Reports: No symptoms Neurological: Reports: No symptoms Endocrine: Reports: No symptoms Hematologic/Lymphatic: Reports: No symptoms All Other Systems: Reviewed and Negative Past Medical History - Past Medical History Previously Healthy: No Endocrine: Reports: None, Hypothyroid, Dyslipidemia Cardiovascular: Reports: None Respiratory: Reports: None Hematological: Reports: None Gastrointestinal: Reports: GERD, Crohn's, Pancreatitis Genitourinary: Reports: Kidney stones Neuro/Psych: Reports: Depression Musculoskeletal: Reports: None Cancer: Reports: None - Surgical History General Surgical History: Reports: Other (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, INTESTINAL RESECTION) - Family History Family History: Reports: Unknown - Social History Smoking Status: Never smoker Hx Substance Use: (Frequent ER visits for pain med) Alcohol Screening: None Physical Exam - Physical Exam Appearance: Well-appearing, No pain distress, Well-nourished Eyes: DISHA, EOMI, Conjunctiva clear ENT: Ears normal, Nose normal, Oropharynx normal Respiratory: Airway patent, Breath sounds clear, Breath sounds equal, Respirations nonlabored Cardiovascular: RRR, Pulses normal, No rub, No murmur GI/: Soft, Nontender, No masses, Bowel sounds normal, No Organomegaly Musculoskeletal: Normal strength, ROM intact, No edema, No calf tenderness Skin: Warm, Dry, Normal color Neurological: Sensation intact, Motor intact, Reflexes intact, Cranial nerves intact, Alert, Oriented Psychiatric: Affect appropriate, Mood appropriate Critical Care Note - Critical Care Note Total Time (mins): 0 Course - Course Orders, Labs, Meds: Orders Category Date Time Status AMYLASE Stat LAB 06/13/16 11:20 Ordered CBC W/ AUTO DIFF Stat LAB 06/13/16 11:20 Ordered COMPREHENSIVE METABOLIC PANEL Stat LAB 06/13/16 11:20 Ordered LIPASE Stat LAB 06/13/16 11:20 Ordered Dicyclomine Inj [Bentyl] MEDS 06/13/16 11:17 Discontinued 20 mg IM ONCE STA CT ABDOMEN/PELVIS WO CONTRAST Stat RADS 06/13/16 11:20 Ordered Medications Discontinued Medications Generic Name Dose Route Start Last Admin Trade Name Freq PRN Reason Stop Dose Admin Dicyclomine HCl 20 mg 06/13/16 11:17 Bentyl IM 06/13/16 11:18 ONCE STA Vital Signs: Temp Pulse Resp BP Pulse Ox 06/13/16 11:01 98.2 F 116 H 20 125/87 98 Departure - Departure Time of Disposition: 13:00 Disposition: HOME SELF-CARE Discharge Problem: Abdominal pain Instructions: Abdominal Pain (ED), Chronic Abdominal Pain (ED) Condition: Good Pt referred to PMD for follow-up: No Additional Instructions: Please call your Family Physician as soon as possible to schedule a follow-up appointment. Allergies/Adverse Reactions: Allergies No Known Allergies Allergy (Verified 06/13/16 11:07) Home Medications: Ambulatory Orders Cyanocobalamin (Vitamin B-12) [Cyanocobalamin Injection] 1 ea IM DIRECTED Adalimumab [Humira] 40 mg SQ DIRECTED 05/03/16 Potassium Chloride [K-Dur] 20 meq PO BID #30 tab 06/11/16 Promethazine HCl [Phenergan Tab] 25 mg PO QID PRN #12 tablet 06/11/16
[2016-06-13 11:48] LABS: BASOPHILS % (AUTO) 0.3 % (0.0-3.0); EOSINOPHILS # (AUTO) 0.2 K/ul (0.0-0.7); EOSINOPHILS % (AUTO) 2.5 % (0.0-7.0); HEMATOCRIT 35.4 % (42.0-52.0); HEMOGLOBIN 12.5 g/dl (14.0-18.0); IMMATURE GRANULOCYTE % (AUTO) 0.6 % (0.0-5.0); LYMPHOCYTES # (AUTO) 2.3 K/uL (0.60-3.4); LYMPHOCYTES % (AUTO) 34.5 (10.0-50.0); MEAN CORPUSCULAR HEMOGLOBIN 31.4 pg (27.0-31.0); MEAN CORPUSCULAR HGB CONC 35.3 (31.8-35.4); MEAN CORPUSCULAR VOLUME 88.9 fl (80.0-94.0); MONOCYTES # (AUTO) 0.8 K/uL (0.4-2.0); NEUTROPHILS # (AUTO) 3.3 K/ul (2.0-6.9); NEUTROPHILS % (AUTO) 50.1; PLATELET COUNT 191 10^3/uL (140-440); RED BLOOD COUNT 3.98 10^6/ul (4.70-6.10); WHITE BLOOD COUNT 6.67 K/ul (4.2-10.2)
--- NOTE | 2016-06-13 11:57 | CT ---
EXAM: Noncontrast CT of the abdomen and pelvis. HISTORY: Abdominal pain. Prior history of Crohn disease. COMPARISON: 03/22/2016 TECHNIQUE: Contiguous axial images at 3 mm intervals were obtained from lung bases through the pelv is. No contrast was given. Coronal reformats were reviewed. FINDINGS: The study is limited without contrast. CHEST: The lung bases show no lobar consolidation or effusion. The heart size is within normal harrison its. ABDOMEN: Evaluation of the soft tissue organs is limited without contrast. LIVER: Noncontrast images of the liver show no solid mass lesion or intrahepatic ductal dilatation. BILIARY: The gallbladder is normally distended. No gallstones are noted. No pericholecystic fluid or inflammation. The common bile duct is normal. SPLEEN: The spleen is unremarkable. PANCREAS: The pancreas shows no mass lesion or peripancreatic inflammation. ADRENAL GLANDS: The adrenal glands are normal. RENAL: The kidneys show no hydronephrosis or nephrolithiasis. There are no obstructing ureteral st ones. No solid mass lesions are identified. RETROPERITONEUM: The aorta is unopacified. No aneurysm is identified. There are no aortic calcifi cations are seen. There is no retroperitoneal or mesenteric adenopathy. BOWEL: The bowel is unopacified. There are postoperative changes of a right hemicolectomy. Bowel a nastomosis sutures are seen in the right upper quadrant. There is questionable submucosal thickenin g of the transverse colon and rectosigmoid colon. No surrounding inflammatory changes are seen. Th e small bowel is unremarkable. No definite bowel wall thickening. Evaluation of the bowel is limit ed without IV and enteric contrast. PELVIS: BLADDER: The bladder is well distended and appears normal. GENITOURINARY STRUCTURES: The prostate is unremarkable. OSSEOUS STRUCTURES: The osseous structures are normal for age. IMPRESSION 1. No acute intra-abdominal abnormality. Limited study without contrast. No obstructing ureteral stones. 2. Post right hemicolectomy. 3. Questionable submucosal thickening of the transverse and sigmoid colon. Findings may be related to the given history of Crohn disease. However there is no surrounding inflammatory change. No st rictures are identified. The small bowel is unremarkable. Evaluation is limited without IV and enteric contrast.
[2016-06-13 12:22] LABS: ANION GAP 15.3; POTASSIUM 3.3 mmol/L (3.5-5.1)
[2016-06-13 12:23] LABS: ALBUMIN 4.4 g/dL (3.4-5.0); ALBUMIN/GLOBULIN RATIO 1.52; BILIRUBIN,TOTAL 0.3 mg/dL (0.00-1.20); CALCIUM 9.3 mg/dL (8.2-10.2); CREATININE 0.9 mg/dL (0.60-1.10); TOTAL PROTEIN 7.3 g/dL (6.4-8.2)
== END 2016-06-13 12:43 | disposition home or self-care (01) ==
LOC: ED 11:00
DX: R10.84 Generalized abdominal pain (principal); G89.29 Other chronic pain; Z79.899 Other long term (current) drug therapy
CPT/HCPCS: 36415; 80053; 82150; 83690; 85025; 96372; 99283

== ENCOUNTER 2016-06-14 08:48 | Emergency (ER) ==
[2016-06-14 08:58] VITALS: BP 118/84; TEMP 97.1; BMI 23.4
--- NOTE | 2016-06-14 09:06 | ED.PDOC ---
General ED Provider: Dr. SANTIAGO DANIELS Chief Complaint: Abdominal Pain Stated Complaint: Came for the same abdominal pain, says he is still hurting. was here on 06/11 and 06/13 Time Seen by Physician: 09:04 Mode of Arrival: Walk-In Information Source: Patient Nursing and Triage Documentation Reviewed and Agree: Yes GI Complaint Exam - Abdominal Pain Complaint/Exam Onset: Gradual Symptoms Are: Still present Timing: Constant Initial Severity: Moderate Current Severity: Moderate Location of Pain: Discrete Radiates To: Reports: Flank Character: Reports: Aching, Throbbing Aggravating: Reports: Movement Alleviating: Reports: None Associated Signs and Symptoms: Reports: Vomiting. Denies: Diaphoresis, Fever, Cough, Chest pain, Dizziness, Back pain, Constipation, Blood in stool, Dysuria, Urinary frequency, Decreased urine output, Decreased appetite, Discharge, Nausea , Diarrhea, Decreased activity Related History: Reports: Similar episode AAA Risk Factors: Reports: None Cardiac Risk Factors: Reports: None Testicular Torsion Risk Factors: Reports: None Surgical Obstruction Risk Factors: Reports: None Related Surgical History: Reports: None Abdominal Findings: Absent: Pulsatile mass, Rebound tenderness Differential Diagnoses: Gastroenteritis, Pancreatitis Review of Systems - Review Of Systems Constitutional: Reports: Malaise, Weakness Eyes: Reports: No symptoms Ears, Nose, Mouth, Throat: Reports: No symptoms Respiratory: Reports: No symptoms Cardiac: Reports: No symptoms GI: Reports: Abdominal pain : Reports: No symptoms Musculoskeletal: Reports: No symptoms Skin: Reports: No symptoms Neurological: Reports: No symptoms Endocrine: Reports: No symptoms Hematologic/Lymphatic: Reports: No symptoms All Other Systems: Reviewed and Negative Past Medical History - Past Medical History Previously Healthy: No Endocrine: Reports: None, Hypothyroid, Dyslipidemia Cardiovascular: Reports: None Respiratory: Reports: None Hematological: Reports: None Gastrointestinal: Reports: GERD, Crohn's, Pancreatitis Genitourinary: Reports: Kidney stones Neuro/Psych: Reports: Depression Musculoskeletal: Reports: None Cancer: Reports: None - Surgical History General Surgical History: Reports: Other (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, INTESTINAL RESECTION) - Family History Family History: Reports: Unknown - Social History Smoking Status: Never smoker Hx Substance Use: (Frequent ER visits for pain med) Alcohol Screening: None Physical Exam - Physical Exam Appearance: Ill-appearing, Thin Eyes: DISHA, EOMI, Conjunctiva clear ENT: Ears normal, Nose normal, Oropharynx normal Respiratory: Airway patent, Breath sounds clear, Breath sounds equal, Respirations nonlabored Cardiovascular: RRR GI/: Soft, Tender, Bowel sounds hypoactive Musculoskeletal: Normal strength, ROM intact, No edema, No calf tenderness Skin: Warm, Dry, Normal color Neurological: Sensation intact, Motor intact, Reflexes intact, Cranial nerves intact, Alert, Oriented Psychiatric: Affect appropriate, Mood appropriate Critical Care Note - Critical Care Note Total Time (mins): 0 Course - Course Hematology/Chemistry: 06/14/16 09:40 Orders, Labs, Meds: Lab Review 06/14/16 09:40 WBC 5.74 RBC 3.99 L Hgb 12.7 L Hct 35.7 L MCV 89.5 MCH 31.8 H MCHC 35.6 H RDW Coeff of Svitlana 11.9 Plt Count 186 Immature Gran % (Auto) 1.0 Neut % (Auto) 43.5 Lymph % (Auto) 39.5 [place] % (Auto) 12.2 H Eos % (Auto) 3.5 Baso % (Auto) 0.3 Immature Gran # (Auto) 0.1 Neut # 2.5 Lymph # 2.3 [place] # 0.7 Eos # 0.2 Baso # 0.0 Orders Category Date Time Status AMYLASE Stat LAB 06/14/16 09:40 Received CBC W/ AUTO DIFF Stat LAB 06/14/16 09:40 Completed COMPREHENSIVE METABOLIC PANEL Stat LAB 06/14/16 09:40 Received LIPASE Stat LAB 06/14/16 09:40 Received Vital Signs: Temp Pulse Resp BP Pulse Ox 06/14/16 08:50 97.1 F L 112 H 20 118/84 99 Departure - Departure Time of Disposition: 11:00 Disposition: HOME SELF-CARE Discharge Problem: Abdominal pain Instructions: Abdominal Pain (ED) Condition: Stable Pt referred to PMD for follow-up: Yes Additional Instructions: INCREASE HYDRATION NEEDS F/U WITH PMD Allergies/Adverse Reactions: Allergies No Known Allergies Allergy (Verified 06/14/16 08:56) Home Medications: Ambulatory Orders Cyanocobalamin (Vitamin B-12) [Cyanocobalamin Injection] 1 ea IM DIRECTED Adalimumab [Humira] 40 mg SQ DIRECTED 05/03/16 Potassium Chloride [K-Dur] 20 meq PO BID #30 tab 06/11/16 Promethazine HCl [Phenergan Tab] 25 mg PO QID PRN #12 tablet 06/11/16 Disposition Discussed With: Patient
[2016-06-14 09:43] LABS: BASOPHILS % (AUTO) 0.3 % (0.0-3.0); EOSINOPHILS # (AUTO) 0.2 K/ul (0.0-0.7); EOSINOPHILS % (AUTO) 3.5 % (0.0-7.0); HEMATOCRIT 35.7 % (42.0-52.0); HEMOGLOBIN 12.7 g/dl (14.0-18.0); LYMPHOCYTES # (AUTO) 2.3 K/uL (0.60-3.4); LYMPHOCYTES % (AUTO) 39.5 (10.0-50.0); MEAN CORPUSCULAR HEMOGLOBIN 31.8 pg (27.0-31.0); MEAN CORPUSCULAR HGB CONC 35.6 (31.8-35.4); MEAN CORPUSCULAR VOLUME 89.5 fl (80.0-94.0); MONOCYTES # (AUTO) 0.7 K/uL (0.4-2.0); MONOCYTES % (AUTO) 12.2 (0-10); NEUTROPHILS # (AUTO) 2.5 K/ul (2.0-6.9); NEUTROPHILS % (AUTO) 43.5; PLATELET COUNT 186 10^3/uL (140-440); RED BLOOD COUNT 3.99 10^6/ul (4.70-6.10); WHITE BLOOD COUNT 5.74 K/ul (4.2-10.2)
[2016-06-14] MEDS ORDERED: TORADOL IM STA (10:01)
[2016-06-14 10:04] LABS: ALBUMIN/GLOBULIN RATIO 1.25; ANION GAP 11.7; BILIRUBIN,TOTAL 0.46 mg/dL (0.00-1.20); BUN/CREATININE RATIO 10.47; CREATININE 1.05 mg/dL (0.60-1.10); POTASSIUM 3.7 mmol/L (3.5-5.1); TOTAL PROTEIN 7.2 g/dL (6.4-8.2)
== END 2016-06-14 10:15 | disposition home or self-care (01) ==
LOC: ED 08:48
DX: R10.9 Unspecified abdominal pain (principal); R11.10 Vomiting, unspecified; Z79.899 Other long term (current) drug therapy
CPT/HCPCS: 36415; 80053; 82150; 83690; 85025; 99282

== ENCOUNTER 2016-06-27 17:47 | Emergency (ER) ==
[2016-06-27 17:53] VITALS: BMI 24.1
--- NOTE | 2016-06-27 18:11 | ED.PDOC ---
General Stated Complaint: CHRONIC ABDOMINAL PAIN... MID ABDOMEN...VOMITING & DIARRHEA[ End] 2 days 97.7 118 20 97% 131/81 1010 Time Seen by Physician: 18:07 Mode of Arrival: Walk-In Information Source: Patient Exam Limitations: No limitations Nursing and Triage Documentation Reviewed and Agree: No <POLO LAWRENCE JR - Last Filed: 06/27/16 19:25> <URMILA TRAMMELL - Last Filed: 06/27/16 21:11> ED Provider: Dr. URMILA TRAMMELL Chief Complaint: Abdominal Pain Review of Systems - Review Of Systems Constitutional: Reports: Fever, Malaise, Weakness Eyes: Reports: Other Ears, Nose, Mouth, Throat: Reports: No symptoms Respiratory: Reports: Other Cardiac: Reports: No symptoms GI: Reports: Abdominal pain, Nausea, Vomiting : Reports: No symptoms Musculoskeletal: Reports: No symptoms Skin: Reports: No symptoms Neurological: Reports: Anxiety, Depressed Endocrine: Reports: No symptoms Hematologic/Lymphatic: Reports: No symptoms All Other Systems: Other <POLO LAWRENCE JR - Last Filed: 06/27/16 19:25> Past Medical History - Past Medical History Previously Healthy: No Endocrine: Reports: None, Hypothyroid, Dyslipidemia Cardiovascular: Reports: None Respiratory: Reports: None Hematological: Reports: None Gastrointestinal: Reports: GERD, Crohn's, Pancreatitis Genitourinary: Reports: Kidney stones Neuro/Psych: Reports: Depression Musculoskeletal: Reports: None Cancer: Reports: None - Surgical History General Surgical History: Reports: Other (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, INTESTINAL RESECTION) - Family History Family History: Reports: Unknown - Social History Smoking Status: Never smoker Hx Substance Use: (Frequent ER visits for pain med) Alcohol Screening: None - Immunizations Tetanus Shot up to Date: Yes <POLO LAWRENCE JR - Last Filed: 06/27/16 19:25> Physical Exam - Physical Exam Appearance: Well-appearing, Thin Pain Distress: Moderate Eyes: DISHA, EOMI, Conjunctiva clear ENT: Ears normal, Nose normal, Oropharynx normal Neck: Supple Respiratory: Airway patent, Breath sounds clear, Breath sounds equal, Respirations nonlabored Cardiovascular: RRR, Pulses normal, No rub, No murmur GI/: Soft, No masses, Bowel sounds normal, Tender Musculoskeletal: Normal strength, ROM intact, No edema, No calf tenderness Skin: Warm, Dry, Normal color Neurological: Sensation intact, Motor intact Psychiatric: Affect appropriate, Anxious <POLO LAWRENCE JR - Last Filed: 06/27/16 19:25> Interpretation - Radiology Interpretation Radiology Interpretation By: ED Physician Radiology Results: Negative Exam Interpreted: Other (KUB) <SULTANAANSLEYURMILA - Last Filed: 06/27/16 21:11> Re-Evaluation - Re-Evaluation Time of Re-Evaluation: 21:11 Status: Improved Pain Level: 8 <URMILA TRAMMELL - Last Filed: 06/27/16 21:11> Physician Notification - Case Discussed Endorsed To/Discussed With: JP Time of Discussion: 19:25 (feel opiates not indicated) <POLO LAWRENCE JR - Last Filed: 06/27/16 19:25> Critical Care Note - Critical Care Note Total Time (mins): 0 <POLO LAWRENCE JR - Last Filed: 06/27/16 19:25> Course - Course Hematology/Chemistry: 06/27/16 19:50 06/27/16 19:50 <URMILA TRAMMELL - Last Filed: 06/27/16 21:11> - Course Orders, Labs, Meds: Lab Review 06/27/16 06/27/16 19:50 20:02 WBC 7.56 RBC 3.89 L Hgb 12.3 L Hct 34.0 L MCV 87.4 MCH 31.6 H MCHC 36.2 H RDW Coeff of [place] 11.8 Plt Count 189 Immature Gran % (Auto) 0.3 Neut % (Auto) 45.3 Lymph % (Auto) 38.8 [place] % (Auto) 13.1 H Eos % (Auto) 2.4 Baso % (Auto) 0.1 Immature Gran # (Auto) 0.0 Neut # 3.4 Lymph # 2.9 [place] # 1.0 Eos # 0.2 Baso # 0.0 Sodium 139 Potassium 3.7 Chloride 109 H Carbon Dioxide 24 Anion Gap 9.7 BUN 15 Creatinine 1.05 Estimated GFR (MDRD) 82.00 BUN/Creatinine Ratio 14.28 Glucose 90 Calcium 9.3 Total Bilirubin 0.56 AST 32 ALT 64 Alkaline Phosphatase 77 Total Protein 7.1 Albumin 4.1 Globulin 3.0 Albumin/Globulin Ratio 1.37 Amylase 54 Lipase 22 Urine Color Yellow Urine Clarity Clear Urine pH 5.5 Ur Specific [place] 1.025 Urine Protein Trace Urine Glucose (UA) Negative Urine Ketones Negative Urine Blood Trace-intact Urine Nitrite Negative Urine Bilirubin Negative Urine Urobilinogen 0.2 Ur Leukocyte Esterase Negative Urine Microscopic RBC 0-2 Ur Squamous Epith Cells Not present Orders Category Date Time Status ED IV/MEDIPORT/POWERPORT .ONCE EMERGENCY 06/27/16 20:12 Active Vital signs [ED VITAL SIGNS] .ONCE EMERGENCY 06/27/16 18:31 Active AMYLASE Stat LAB 06/27/16 19:50 Completed CBC W/ AUTO DIFF Stat LAB 06/27/16 19:50 Completed COMPREHENSIVE METABOLIC PANEL Stat LAB 06/27/16 19:50 Completed LIPASE Stat LAB 06/27/16 19:50 Completed URINALYSIS C & S IF INDICATED Stat LAB 06/27/16 20:02 Completed 0.9 % Sodium Chloride [Saline Flush] MEDS 06/27/16 20:12 Ordered 1 syr IVF PRN PRN Acetaminophen [Tylenol] MEDS 06/27/16 18:14 Discontinued 500 mg PO ONCE STA Dicyclomine Inj [Bentyl] MEDS 06/27/16 20:12 Discontinued 20 mg IM ONCE STA Promethazine HCl [Phenergan Tab] MEDS 06/27/16 18:14 Discontinued 25 mg PO ONCE STA Sodium Chloride 0.9% [Sodium Chloride] 1,000 ml MEDS 06/27/16 19:40 Discontinued IV BOLUS KUB Stat RADS 06/27/16 19:42 Taken Medications Generic Name Dose Route Start Last Admin Trade Name Freq PRN Reason Stop Dose Admin Sodium Chloride 1 syr 06/27/16 20:12 Saline Flush IVF PRN PRN To flush IV Discontinued Medications Generic Name Dose Route Start Last Admin Trade Name Freq PRN Reason Stop Dose Admin Acetaminophen 500 mg 06/27/16 18:14 06/27/16 18:23 Tylenol PO 06/27/16 18:15 500 mg ONCE STA Administration Dicyclomine HCl 20 mg 06/27/16 20:12 06/27/16 20:34 Bentyl IM 06/27/16 20:13 20 mg ONCE STA Administration Sodium Chloride 1,000 mls @ 1,000 mls/hr 06/27/16 19:40 06/27/16 20:35 Sodium Chloride IV 06/27/16 20:39 1,000 mls/hr BOLUS STA Administration Promethazine HCl 25 mg 06/27/16 18:14 06/27/16 18:23 Phenergan Tab PO 06/27/16 18:15 25 mg ONCE STA Administration Vital Signs: Temp Pulse Resp BP Pulse Ox 06/27/16 19:05 98.1 F 105 H 121/78 100 06/27/16 17:48 97.7 F 118 H 20 131/81 97 Departure - Departure Time of Disposition: 18:31 Pt referred to PMD for follow-up: Yes <POLO LAWRENCE JR - Last Filed: 06/27/16 19:25> - Departure Pt referred to PMD for follow-up: Yes Transfer Form Completed: Yes Disposition Discussed With: Patient <URMILA TRAMMELL - Last Filed: 06/27/16 21:11> - Departure Disposition: HOME SELF-CARE Discharge Problem: Chronic abdominal pain Instructions: Abdominal Pain (ED) Condition: Fair Additional Instructions: vital signs and exam do not support any worsening of chronic condition return if fever over 101.0 follow up with PMD and gastroenterology call on Wednesday Prescriptions: Acetaminophen with Codeine [Tylenol #3 Tab] 1 tab PO Q6H #5 tablet Promethazine HCl [Phenergan Tab] 25 mg PO QID PRN #12 tablet PRN Reason: Nausea / Vomiting Allergies/Adverse Reactions: Allergies No Known Allergies Allergy (Verified 06/27/16 18:15) Home Medications: Ambulatory Orders Cyanocobalamin (Vitamin B-12) [Cyanocobalamin Injection] 1 ea IM DIRECTED Adalimumab [Humira] 40 mg SQ DIRECTED 05/03/16 Acetaminophen with Codeine [Tylenol #3 Tab] 1 tab PO Q6H #5 tablet 06/27/16 Promethazine HCl [Phenergan Tab] 25 mg PO QID PRN #12 tablet 06/27/16
[2016-06-27] MEDS ORDERED: PHENERGAN TAB PO STA (18:14)
[2016-06-27] MEDS ORDERED: TYLENOL PO STA (18:14)
[2016-06-27 19:06] VITALS: BP 121/78; TEMP 98.1
[2016-06-27] MEDS ORDERED: SODIUM CHLORIDE 1,000 ML IV STA (19:40)
[2016-06-27] MEDS ORDERED: PHENERGAN 25 MG/ML VIAL 25 MG in SODIUM CHLORIDE 50 ML IV STA (19:40)
[2016-06-27] MEDS ORDERED: MORPHINE 4 MG/ML SYRINGE IVP STA (19:41)
[2016-06-27 19:52] LABS: BASOPHILS % (AUTO) 0.1 % (0.0-3.0); EOSINOPHILS # (AUTO) 0.2 K/ul (0.0-0.7); EOSINOPHILS % (AUTO) 2.4 % (0.0-7.0); HEMOGLOBIN 12.3 g/dl (14.0-18.0); IMMATURE GRANULOCYTE % (AUTO) 0.3 % (0.0-5.0); LYMPHOCYTES # (AUTO) 2.9 K/uL (0.60-3.4); LYMPHOCYTES % (AUTO) 38.8 (10.0-50.0); MEAN CORPUSCULAR HEMOGLOBIN 31.6 pg (27.0-31.0); MEAN CORPUSCULAR HGB CONC 36.2 (31.8-35.4); MEAN CORPUSCULAR VOLUME 87.4 fl (80.0-94.0); MONOCYTES % (AUTO) 13.1 (0-10); NEUTROPHILS # (AUTO) 3.4 K/ul (2.0-6.9); NEUTROPHILS % (AUTO) 45.3; PLATELET COUNT 189 10^3/uL (140-440); RED BLOOD COUNT 3.89 10^6/ul (4.70-6.10); WHITE BLOOD COUNT 7.56 K/ul (4.2-10.2)
[2016-06-27 20:11] LABS: BILIRUBIN,URINE Negative (NEGATIVE); KETONES,URINE Negative (NEGATIVE); LEUKOCYTE ESTERASE ,URINE Negative (NEGATIVE); NITRITE,URINE Negative (NEGATIVE); PH,URINE 5.5 (5-9); PROTEIN,URINE Trace (NEGATIVE); URINE, BLOOD Trace-intact (NEGATIVE)
[2016-06-27 20:12] LABS: ALBUMIN 4.1 g/dL (3.4-5.0); ALBUMIN/GLOBULIN RATIO 1.37; ANION GAP 9.7; BILIRUBIN,TOTAL 0.56 mg/dL (0.00-1.20); BUN/CREATININE RATIO 14.28; CALCIUM 9.3 mg/dL (8.2-10.2); CREATININE 1.05 mg/dL (0.60-1.10); POTASSIUM 3.7 mmol/L (3.5-5.1); TOTAL PROTEIN 7.1 g/dL (6.4-8.2)
[2016-06-27] MEDS ORDERED: BENTYL IM STA (20:12)
[2016-06-27 20:13] LABS: ADD URINE MICROSCOPIC YES
--- NOTE | 2016-06-28 08:20 | DI ---
EXAM: Abdomen one-view HISTORY: Abdomenal Pain FINDINGS: Normal bowel gas pattern. No pathologic calcifications. No large free intraperitoneal g as. No abundance of retained colonic stool. Right abdominal chain sutures. Skeleton appears normal. IMPRESSION: Negative exam.
== END 2016-06-27 21:10 | disposition home or self-care (01) ==
LOC: ED 17:47
DX: R10.9 Unspecified abdominal pain (principal); G89.29 Other chronic pain; R11.2 Nausea with vomiting, unspecified; R19.7 Diarrhea, unspecified; Z79.899 Other long term (current) drug therapy
CPT/HCPCS: 36415; 80053; 81001; 82150; 83690; 85025; 96361; 96372; 99284

== ENCOUNTER 2016-07-16 20:45 | Emergency (ER) ==
[2016-07-16 20:59] VITALS: BP 121/85; TEMP 98; BMI 25.0
[2016-07-16 21:06] LABS: BILIRUBIN,URINE Negative (NEGATIVE); KETONES,URINE Negative (NEGATIVE); LEUKOCYTE ESTERASE ,URINE Negative (NEGATIVE); NITRITE,URINE Negative (NEGATIVE); PH,URINE 6.5 (5-9); PROTEIN,URINE 1+ (NEGATIVE); URINE, BLOOD 2+ (NEGATIVE)
[2016-07-16 21:20] LABS: ADD URINE MICROSCOPIC YES
[2016-07-16 21:21] LABS: BACTERIA,URINE 2+ (NOT PRESENT)
--- NOTE | 2016-07-16 21:27 | ED.PDOC ---
General ED Provider: Dr. JULEE GONZALEZ-ER Chief Complaint: Urinary Problem Stated Complaint: it stings and bautista when i pee--denies fever or chills or flank pain Time Seen by Physician: 20:50 Mode of Arrival: Walk-In Information Source: Patient Exam Limitations: No limitations Nursing and Triage Documentation Reviewed and Agree: Yes Complaint Exam - Complaint/Exam Patient Complains of: Reports: Dysuria Onset/Duration: 24hrs Symptoms Are: Still present Timing: Intermittent Initial Severity: Mild Current Severity: Mild Location of Pain: Reports: Penis Character: Reports: Sharp, Burning Aggravating: Reports: Voiding Associated Signs and Symptoms: Reports: Dysuria, Increased urine frequency. Denies: Diaphoresis, Back pain, Fever, Hematuria, Constipation, Blood in stool, Rectal pain, Appetite change, Nausea, Vomiting, Penile swelling, Penile discharge, Decreased urine output, Increased thirst, Decreased activity, Lethargy, Scrotal pain, Scrotal swelling, Abdominal Pain Related History: Reports: Similar episode Testicular Torsion Risk Factors: Reports: None Surgical Obstruction Risk Factors: Reports: Prior abdominal surgery Abdominal Findings: Present: None Genitalia Exam: Present: Normal findings Differential Diagnoses: UTI, Ureteral Calculi, Other Review of Systems - Review Of Systems Constitutional: Reports: No symptoms Eyes: Reports: No symptoms Ears, Nose, Mouth, Throat: Reports: No symptoms Respiratory: Reports: No symptoms Cardiac: Reports: No symptoms GI: Reports: No symptoms : Reports: Burning, Dysuria, Frequency, Pain, Urgency Musculoskeletal: Reports: No symptoms Skin: Reports: No symptoms Neurological: Reports: No symptoms Endocrine: Reports: No symptoms Hematologic/Lymphatic: Reports: No symptoms All Other Systems: Reviewed and Negative Past Medical History - Past Medical History Previously Healthy: No Endocrine: Reports: None, Hypothyroid, Dyslipidemia Cardiovascular: Reports: None Respiratory: Reports: None Hematological: Reports: None Gastrointestinal: Reports: GERD, Crohn's, Pancreatitis Genitourinary: Reports: Kidney stones Neuro/Psych: Reports: Depression Musculoskeletal: Reports: None Cancer: Reports: None - Surgical History General Surgical History: Reports: Other (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, INTESTINAL RESECTION) - Family History Family History: Reports: Unknown - Social History Smoking Status: Never smoker Hx Substance Use: Yes (Frequent ER visits for pain med) Alcohol Screening: None Lives: With family Physical Exam - Physical Exam Appearance: Well-appearing, No pain distress, Well-nourished Pain Distress: Mild Eyes: DISHA, EOMI, Conjunctiva clear ENT: Ears normal, Nose normal, Oropharynx normal Neck: Supple Respiratory: Airway patent Cardiovascular: RRR, Pulses normal, No rub, No murmur GI/: Soft, Nontender, No masses, Bowel sounds normal, No Organomegaly Musculoskeletal: Normal strength, ROM intact, No edema, No calf tenderness Skin: Warm, Dry, Normal color Neurological: Sensation intact, Motor intact, Reflexes intact, Cranial nerves intact, Alert, Oriented Psychiatric: Affect appropriate, Mood appropriate Critical Care Note - Critical Care Note Total Time (mins): 0 Course - Course Orders, Labs, Meds: Lab Review 07/16/16 20:55 Urine Color Yellow Urine Clarity Clear Urine pH 6.5 Ur Specific [place] 1.025 Urine Protein 1+ Urine Glucose (UA) Negative Urine Ketones Negative Urine Blood 2+ Urine Nitrite Negative Urine Bilirubin Negative Urine Urobilinogen 0.2 Ur Leukocyte Esterase Negative Urine Microscopic RBC Tntc Urine Microscopic WBC 2-5 Ur Squamous Epith Cells Not present Amorphous Sediment 1+ Urine Bacteria 2+ Orders Category Date Time Status Bladder [ED BLADDER SCAN] .ONCE EMERGENCY 07/16/16 20:56 Active URINALYSIS C & S IF INDICATED Stat LAB 07/16/16 20:55 Completed URINE CULTURE Stat LAB 07/16/16 20:55 Received Vital Signs: Temp Pulse Resp BP Pulse Ox 07/16/16 20:46 98.0 F 112 H 16 121/85 98 Departure - Departure Time of Disposition: 21:28 Disposition: HOME SELF-CARE Discharge Problem: Dysuria, Hematuria, unspecified Instructions: Dysuria (ED) Condition: Good Pt referred to PMD for follow-up: Yes Additional Instructions: bactrim ds bid x 7days--norco 7.5mg q 4hrs prn pain #10--f/u with your pcp or urologist to follow up the blood in the urine Allergies/Adverse Reactions: Allergies No Known Allergies Allergy (Verified 07/16/16 20:50) Home Medications: Ambulatory Orders Cyanocobalamin (Vitamin B-12) [Cyanocobalamin Injection] 1 ea IM DIRECTED Adalimumab [Humira] 40 mg SQ DIRECTED 05/03/16 Multivitamin 1 cap PO DAILY 07/16/16 Disposition Discussed With: Patient
== END 2016-07-16 21:31 | disposition home or self-care (01) ==
LOC: ED 20:45
DX: R30.0 Dysuria (principal); R31.9 Hematuria, unspecified
CPT/HCPCS: 81001; 87086; 99283

== ENCOUNTER 2016-07-21 15:06 | Emergency (ER) ==
[2016-07-21 15:11] VITALS: BP 133/85; TEMP 98.7; BMI 25.2
--- NOTE | 2016-07-21 15:21 | ED.PDOC ---
General ED Provider: Dr. POLO LAWRENCE JR Chief Complaint: Urinary Problem Stated Complaint: onset with pain to lower abd and pain with voiding--seen in er 4 days ago--states had ultrasound done--has appt to see dr gates at 1530--had fistula in past due to crohns dz--cont to have pain[End]98.7 91 20 98% 133/85 07/16/16: Dysuria, Hematuria, unspecified. Pt referred to PMD for follow-up. bactrim ds bid x 7days--norco 7.5mg q 4hrs prn pain #10--f/u with your pcp or urologist to follow up the blood in the urine. Time Seen by Physician: 15:21 Mode of Arrival: Walk-In Information Source: Patient Exam Limitations: No limitations Nursing and Triage Documentation Reviewed and Agree: No Review of Systems - Review Of Systems Constitutional: Reports: No symptoms Eyes: Reports: No symptoms Ears, Nose, Mouth, Throat: Reports: No symptoms Respiratory: Reports: No symptoms Cardiac: Reports: No symptoms GI: Reports: Abdominal pain : Reports: No symptoms Musculoskeletal: Reports: No symptoms Skin: Reports: No symptoms Neurological: Reports: No symptoms Endocrine: Reports: No symptoms Hematologic/Lymphatic: Reports: No symptoms All Other Systems: Reviewed and Negative Past Medical History - Past Medical History Previously Healthy: No Endocrine: Reports: None, Hypothyroid, Dyslipidemia Cardiovascular: Reports: None Respiratory: Reports: None Hematological: Reports: None Gastrointestinal: Reports: GERD, Crohn's, Pancreatitis Genitourinary: Reports: Kidney stones Neuro/Psych: Reports: Depression Musculoskeletal: Reports: None Cancer: Reports: None - Surgical History General Surgical History: Reports: Other (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, INTESTINAL RESECTION) - Family History Family History: Reports: Unknown - Social History Smoking Status: Never smoker Hx Substance Use: Yes (Frequent ER visits for pain med) Alcohol Screening: None Physical Exam - Physical Exam Appearance: Well-appearing Critical Care Note - Critical Care Note Total Time (mins): 0 Course - Course Orders, Labs, Meds: Lab Review 07/21/16 15:20 Urine Color Yellow Urine Clarity Clear Urine pH 6.0 Ur Specific [place] 1.025 Urine Protein 1+ Urine Glucose (UA) Negative Urine Ketones Trace Urine Blood Trace-intact Urine Nitrite Negative Urine Bilirubin Negative Urine Urobilinogen 0.2 Ur Leukocyte Esterase Negative Urine Microscopic RBC 0-2 Urine Microscopic WBC 0-2 Ur Squamous Epith Cells Not present Ur Renal Epithelial Cell 0-2 Amorphous Sediment 1+ Urine Bacteria Trace Urine Mucus 1+ Orders Category Date Time Status UA [URINALYSIS C & S IF INDICATED] Stat LAB 07/21/16 15:20 Completed Vital Signs: Temp Pulse Resp BP Pulse Ox 07/21/16 15:06 98.7 F 91 H 20 133/85 98 Departure - Departure Time of Disposition: 15:37 Disposition: HOME SELF-CARE Discharge Problem: Urinary symptoms, Hematuria, unspecified, Chronic abdominal pain Instructions: Hematuria (ED), Dysuria (ED), Chronic Abdominal Pain (ED) Condition: Good Pt referred to PMD for follow-up: Yes Additional Instructions: Follow up with your pcp or urologist to follow up the blood in the urine. follow up with PMD for abdominal pain, follow up with urologist as scheduled return if fever over 101.0 or new symptoms may try AZO or Pyridium for urinary discomfort Allergies/Adverse Reactions: Allergies No Known Allergies Allergy (Verified 07/21/16 15:13) Home Medications: Ambulatory Orders Adalimumab [Humira] 40 mg SQ DIRECTED 05/03/16 Multivitamin 1 cap PO DAILY 07/16/16
[2016-07-21 15:29] LABS: BILIRUBIN,URINE Negative (NEGATIVE); KETONES,URINE Trace (NEGATIVE); LEUKOCYTE ESTERASE ,URINE Negative (NEGATIVE); NITRITE,URINE Negative (NEGATIVE); PROTEIN,URINE 1+ (NEGATIVE); URINE, BLOOD Trace-intact (NEGATIVE)
[2016-07-21 15:32] LABS: ADD URINE MICROSCOPIC YES
[2016-07-21 15:33] LABS: BACTERIA,URINE TRACE (NOT PRESENT)
== END 2016-07-21 16:15 | disposition home or self-care (01) ==
LOC: ED 15:06
DX: R30.0 Dysuria (principal); R31.9 Hematuria, unspecified; R10.30 Lower abdominal pain, unspecified; G89.29 Other chronic pain; Z87.19 Personal history of other diseases of the digestive system
CPT/HCPCS: 81001; 99282

== ENCOUNTER 2016-08-02 13:11 | Emergency (ER) ==
[2016-08-02 13:11] VITALS: BMI 25.2
[2016-08-02 13:19] VITALS: BP 118/81; TEMP 98
--- NOTE | 2016-08-02 13:37 | ED.PDOC ---
General ED Provider: Dr. POLO LAWRENCE JR Chief Complaint: Urinary Problem Stated Complaint: ER AUGUST 21. follow up urologist removed a cyst from his bladder 4 days ago.[ End ]98.0 90 20 98% 118/81 10 07/22 pyridium Time Seen by Physician: 13:37 Mode of Arrival: Walk-In Information Source: Patient Exam Limitations: No limitations Primary Care Provider: ROSALINE CASTORENA Nursing and Triage Documentation Reviewed and Agree: No Review of Systems - Review Of Systems Constitutional: Reports: Malaise Eyes: Reports: No symptoms Ears, Nose, Mouth, Throat: Reports: No symptoms Respiratory: Reports: No symptoms Cardiac: Reports: No symptoms GI: Reports: Abdominal pain : Reports: Dysuria, Hematuria Musculoskeletal: Reports: No symptoms Skin: Reports: No symptoms Neurological: Reports: No symptoms Endocrine: Reports: No symptoms Hematologic/Lymphatic: Reports: No symptoms All Other Systems: Other Past Medical History - Past Medical History Previously Healthy: No Endocrine: Reports: None, Hypothyroid, Dyslipidemia Cardiovascular: Reports: None Respiratory: Reports: None Hematological: Reports: None Gastrointestinal: Reports: GERD, Crohn's, Pancreatitis Genitourinary: Reports: Kidney stones Neuro/Psych: Reports: Depression Musculoskeletal: Reports: None Cancer: Reports: None - Surgical History General Surgical History: Reports: Other (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, INTESTINAL RESECTION) - Family History Family History: Reports: Unknown - Social History Smoking Status: Never smoker Hx Substance Use: Yes (Frequent ER visits for pain med) Alcohol Screening: None Physical Exam - Physical Exam Appearance: Well-appearing Pain Distress: Mild Eyes: DISHA, EOMI, Conjunctiva clear ENT: Ears normal, Nose normal, Oropharynx normal Neck: Supple Respiratory: Airway patent, Breath sounds clear, Breath sounds equal, Respirations nonlabored Cardiovascular: RRR, Pulses normal, No rub, No murmur GI/: Tender, Bowel sounds hypoactive Musculoskeletal: Normal strength, ROM intact, No edema, No calf tenderness Skin: Warm, Dry, Normal color Neurological: Sensation intact, Motor intact, Reflexes intact, Cranial nerves intact, Alert, Oriented Psychiatric: Affect appropriate, Mood appropriate Critical Care Note - Critical Care Note Total Time (mins): 0 Course - Course Orders, Labs, Meds: Lab Review 08/02/16 13:38 Urine Color Yellow Urine Clarity Hazy Urine pH 6.5 Ur Specific [place] 1.020 Urine Protein 1+ Urine Glucose (UA) Negative Urine Ketones Negative Urine Blood 2+ Urine Nitrite Negative Urine Bilirubin Negative Urine Urobilinogen 0.2 Ur Leukocyte Esterase Negative Urine Microscopic RBC 30-50 Urine Microscopic WBC 0-2 Ur Squamous Epith Cells Not present Orders Category Date Time Status UA [URINALYSIS C & S IF INDICATED] Stat LAB 08/02/16 13:38 Completed Vital Signs: Temp Pulse Resp BP Pulse Ox 08/02/16 13:13 98.0 F 90 20 118/81 98 Departure - Departure Time of Disposition: 14:27 Disposition: HOME SELF-CARE Discharge Problem: Urinary symptoms Instructions: Hematuria (ED) Condition: Good Pt referred to PMD for follow-up: Yes Additional Instructions: do not take NSAIDS while bleeding unless prescribed by urologist may use Tylenol for pain up to maximum on bottle(do not double dose) may use pyridium and Benadryl for pain and spasms may use Bentyl if prescribed by PMD if light headed or unable to void follow up with urologist increase fluids by 32 ounces daily- urine should be colorless Allergies/Adverse Reactions: Allergies No Known Allergies Allergy (Verified 08/02/16 13:17) Home Medications: Ambulatory Orders Adalimumab [Humira] 40 mg SQ DIRECTED 05/03/16 Multivitamin 1 cap PO DAILY 07/16/16 Phenazopyridine HCl [Pyridium] 200 mg PO TID 08/02/16
[2016-08-02 13:44] LABS: BILIRUBIN,URINE Negative (NEGATIVE); KETONES,URINE Negative (NEGATIVE); LEUKOCYTE ESTERASE ,URINE Negative (NEGATIVE); NITRITE,URINE Negative (NEGATIVE); PH,URINE 6.5 (5-9); PROTEIN,URINE 1+ (NEGATIVE); URINE, BLOOD 2+ (NEGATIVE)
[2016-08-02 13:49] LABS: ADD URINE MICROSCOPIC YES
== END 2016-08-02 14:48 | disposition home or self-care (01) ==
LOC: ED 13:11
DX: R30.0 Dysuria (principal); R31.9 Hematuria, unspecified; Z98.890 Other specified postprocedural states
CPT/HCPCS: 81001; 99283

== ENCOUNTER 2016-08-15 08:38 | Emergency (ER) ==
[2016-08-15 08:45] VITALS: BP 121/82; TEMP 99; BMI 25.1
--- NOTE | 2016-08-15 09:21 | ED.PDOC ---
General ED Provider: Dr. POLO LAWRENCE JR Chief Complaint: Abdominal Pain Stated Complaint: has generalized abd pain--states whole body is aching then suggests that his potassium might be low--hx crohn's--appt for colonoscopy on 02 of september--sees dr clark in [place] as gi specialist--no fever--appetite good--no n/v[End]2 days, 99.0 81 20 97% 121/82 09/21, sees Dr Wilkerson in [facility] Time Seen by Physician: 09:19 Mode of Arrival: Walk-In Information Source: Patient Exam Limitations: No limitations Primary Care Provider: JARAD GARCIA Nursing and Triage Documentation Reviewed and Agree: No Review of Systems - Review Of Systems Constitutional: Reports: Chills, Fever, Malaise, Weakness (hurting all over) Eyes: Reports: No symptoms Ears, Nose, Mouth, Throat: Reports: No symptoms Respiratory: Reports: No symptoms Cardiac: Reports: No symptoms GI: Reports: Abdominal pain, Diarrhea (chronic not more than usual), Nausea, Vomiting : Reports: No symptoms Musculoskeletal: Reports: No symptoms, Other (abd pain) Skin: Reports: No symptoms Neurological: Reports: No symptoms Endocrine: Reports: No symptoms Hematologic/Lymphatic: Reports: No symptoms All Other Systems: Other Past Medical History - Past Medical History Previously Healthy: No Endocrine: Reports: None, Hypothyroid, Dyslipidemia Cardiovascular: Reports: None Respiratory: Reports: None Hematological: Reports: None Gastrointestinal: Reports: GERD, Crohn's, Pancreatitis Genitourinary: Reports: Kidney stones Neuro/Psych: Reports: Depression Musculoskeletal: Reports: None Cancer: Reports: None - Surgical History General Surgical History: Reports: Other (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, INTESTINAL RESECTION) - Family History Family History: Reports: Unknown - Social History Smoking Status: Never smoker Hx Substance Use: Yes (Frequent ER visits for pain med) Alcohol Screening: None Physical Exam - Physical Exam Appearance: Well-nourished Ill-appearing: Moderate Pain Distress: Moderate Eyes: DISHA, EOMI, Conjunctiva clear ENT: Ears normal, Nose normal, Oropharynx normal Neck: Supple Respiratory: Airway patent, Breath sounds clear, Breath sounds equal, Respirations nonlabored Cardiovascular: RRR, Pulses normal, No rub, No murmur GI/: Soft, Nontender, No masses, Bowel sounds normal, No Organomegaly Musculoskeletal: Normal strength, ROM intact, No edema, No calf tenderness Skin: Warm, Dry, Normal color Neurological: Sensation intact, Motor intact, Reflexes intact, Cranial nerves intact, Alert, Oriented Psychiatric: Affect appropriate, Mood appropriate Critical Care Note - Critical Care Note Total Time (mins): 0 Course - Course Hematology/Chemistry: 08/15/16 09:25 08/15/16 09:25 Orders, Labs, Meds: Lab Review 08/15/16 08/15/16 08:50 09:25 WBC 6.00 RBC 4.03 L Hgb 12.4 L Hct 34.6 L MCV 85.9 MCH 30.8 MCHC 35.8 H RDW Coeff of Svitlana 12.3 Plt Count 195 Neutrophils % (Manual) 52.0 Lymphocytes % (Manual) 30.0 Monocytes % (Manual) 7.0 Eosinophils % (Manual) 3.0 Reactive Lymphocytes 8.0 H Sodium 139 Potassium 4.0 Chloride 108 H Carbon Dioxide 23 Anion Gap 12.0 BUN 11 Creatinine 0.89 Estimated GFR (MDRD) 99.00 BUN/Creatinine Ratio 12.35 Glucose 93 Calcium 9.4 Total Bilirubin 0.52 AST 23 ALT 37 Alkaline Phosphatase 78 Total Protein 6.7 Albumin 3.9 Globulin 2.8 Albumin/Globulin Ratio 1.39 Amylase 62 Lipase 16 Procalcitonin < 0.05 Urine Color Yellow Urine Clarity Clear Urine pH 6.0 Ur Specific [place] >=1.030 Urine Protein Trace Urine Glucose (UA) Negative Urine Ketones Negative Urine Blood Negative Urine Nitrite Negative Urine Bilirubin Negative Urine Urobilinogen 0.2 Ur Leukocyte Esterase Negative Urine Microscopic WBC 2-5 Ur Squamous Epith Cells Not present Orders Category Date Time Status AMYLASE Stat LAB 08/15/16 09:25 Completed CBC W/ AUTO DIFF Stat LAB 08/15/16 09:25 Completed COMPREHENSIVE METABOLIC PANEL Stat LAB 08/15/16 09:25 Completed LIPASE Stat LAB 08/15/16 09:25 Completed MANUAL DIFFERENTIAL Stat LAB 08/15/16 09:25 Completed PROCALCITONIN Stat LAB 08/15/16 09:25 Completed URINALYSIS C & S IF INDICATED Stat LAB 08/15/16 08:50 Completed Acetaminophen [Tylenol] MEDS 08/15/16 09:33 Discontinued 650 mg PO ONCE STA Promethazine HCl [Phenergan 25 mg/ml Vial] MEDS 08/15/16 09:23 Discontinued 25 mg IM ONCE STA Medications Discontinued Medications Generic Name Dose Route Start Last Admin Trade Name Esperanza PRN Reason Stop Dose Admin Acetaminophen 650 mg 08/15/16 09:33 08/15/16 10:04 Tylenol PO 08/15/16 09:34 650 mg ONCE STA Administration Promethazine HCl 25 mg 08/15/16 09:23 08/15/16 09:39 Phenergan 25 Mg/Ml Vial IM 08/15/16 09:24 25 mg ONCE STA Administration Vital Signs: Temp Pulse Resp BP Pulse Ox 08/15/16 08:38 99 F 81 20 121/82 97 Departure - Departure Time of Disposition: 10:29 Disposition: HOME SELF-CARE Discharge Problem: Abdominal pain Instructions: Abdominal Pain (ED) Condition: Good Pt referred to PMD for follow-up: Yes Additional Instructions: Tylenol for fever Motrin for discomfort Phenergan for nausea no elevation of pancreas or liver enzymes urine is concentrated need to drink 6 extra cups of clear liquid today(48 ounces over 24 hours) keep hydrated follow up with PMD call PMD on Wednesday for ER follow up Allergies/Adverse Reactions: Allergies No Known Allergies Allergy (Verified 08/15/16 08:47) Home Medications: Ambulatory Orders Adalimumab [Humira] 40 mg SQ DIRECTED 05/03/16 Multivitamin 1 cap PO DAILY 07/16/16 Phenazopyridine HCl [Pyridium] 200 mg PO TID 08/02/16
[2016-08-15] MEDS ORDERED: TORADOL IM STA (09:23)
[2016-08-15] MEDS ORDERED: PHENERGAN 25 MG/ML VIAL IM STA (09:23)
[2016-08-15] MEDS ORDERED: TYLENOL PO STA (09:33)
[2016-08-15 09:36] LABS: HEMATOCRIT 34.6 % (42.0-52.0); HEMOGLOBIN 12.4 g/dl (14.0-18.0); MEAN CORPUSCULAR HEMOGLOBIN 30.8 pg (27.0-31.0); MEAN CORPUSCULAR HGB CONC 35.8 (31.8-35.4); MEAN CORPUSCULAR VOLUME 85.9 fl (80.0-94.0); PLATELET COUNT 195 10^3/uL (140-440); RED BLOOD COUNT 4.03 10^6/ul (4.70-6.10)
[2016-08-15 09:37] LABS: BILIRUBIN,URINE Negative (NEGATIVE); KETONES,URINE Negative (NEGATIVE); LEUKOCYTE ESTERASE ,URINE Negative (NEGATIVE); NITRITE,URINE Negative (NEGATIVE); PROTEIN,URINE Trace (NEGATIVE); URINE, BLOOD Negative (NEGATIVE)
[2016-08-15 09:39] LABS: ADD URINE MICROSCOPIC YES
[2016-08-15 09:56] LABS: ANISOCYTOSIS NOT PRESENT (NOT PRESENT)
[2016-08-15 09:58] LABS: ALBUMIN 3.9 g/dL (3.4-5.0); ALBUMIN/GLOBULIN RATIO 1.39; BILIRUBIN,TOTAL 0.52 mg/dL (0.00-1.20); BUN/CREATININE RATIO 12.35; CALCIUM 9.4 mg/dL (8.2-10.2); CREATININE 0.89 mg/dL (0.60-1.10); TOTAL PROTEIN 6.7 g/dL (6.4-8.2)
== END 2016-08-15 10:43 | disposition home or self-care (01) ==
LOC: ED 08:38
DX: R10.9 Unspecified abdominal pain (principal); R52 Pain, unspecified; R53.1 Weakness; R19.7 Diarrhea, unspecified; R11.2 Nausea with vomiting, unspecified; R50.9 Fever, unspecified; Z87.19 Personal history of other diseases of the digestive system
CPT/HCPCS: 36415; 80053; 81001; 82150; 83690; 84145; 85007; 85025; 96372; 99283

== ENCOUNTER 2016-09-10 13:39 | Emergency (ER) ==
[2016-09-10 13:47] VITALS: BP 122/52; TEMP 98.1; BMI 25.2
[2016-09-10] MEDS ORDERED: TORADOL IM STA ×2 (14:09→14:20)
[2016-09-10] MEDS ORDERED: BENTYL IM STA (14:11)
--- NOTE | 2016-09-10 14:14 | ED.PDOC ---
General ED Provider: Dr. SHARAN MCHUGH Chief Complaint: Abdominal Pain Stated Complaint: abdominal pain Time Seen by Physician: 13:50 (pt here for abdominal pain) Mode of Arrival: Walk-In Information Source: Patient Exam Limitations: No limitations Primary Care Provider: ROSALINE CASTORENA Nursing and Triage Documentation Reviewed and Agree: Yes (was seen at [facility] labs from that hospital all reviewed pt seen with st) GI Complaint Exam - Abdominal Pain Complaint/Exam Onset: Gradual Symptoms Are: Still present Timing: Intermittent Initial Severity: Mild Current Severity: Mild Location of Pain: RLQ Character: Reports: Sharp Aggravating: Reports: Movement Alleviating: Reports: None Associated Signs and Symptoms: Denies: Diaphoresis, Fever, Cough, Chest pain, Dizziness, Back pain, Constipation, Blood in stool, Dysuria, Urinary frequency, Decreased urine output, Decreased appetite, Discharge, Nausea, Vomiting, Diarrhea, Decreased activity Related History: Reports: Similar episode (history of crohns disease) AAA Risk Factors: Reports: None Cardiac Risk Factors: Reports: None Testicular Torsion Risk Factors: Reports: None Surgical Obstruction Risk Factors: Reports: None Related Surgical History: Reports: None Abdominal Findings: Present: None Differential Diagnoses: Appendicitis, Bowel Obstruction, Constipation, Diverticulitis, Gastroenteritis, Hepatitis, Pancreatitis, Irritable Bowel Syndrome, Renal Colic, Ureteral Stone, Ischemic Bowel, PUD Review of Systems - Review Of Systems Constitutional: Reports: No symptoms Eyes: Reports: No symptoms Ears, Nose, Mouth, Throat: Reports: No symptoms Respiratory: Reports: No symptoms Cardiac: Reports: No symptoms GI: Reports: Abdominal pain : Reports: No symptoms Musculoskeletal: Reports: No symptoms Skin: Reports: No symptoms Neurological: Reports: No symptoms Endocrine: Reports: No symptoms Hematologic/Lymphatic: Reports: No symptoms All Other Systems: Reviewed and Negative Past Medical History - Past Medical History Previously Healthy: No Endocrine: Reports: None, Hypothyroid, Dyslipidemia Cardiovascular: Reports: None Respiratory: Reports: None Hematological: Reports: None Gastrointestinal: Reports: GERD, Crohn's, Pancreatitis Genitourinary: Reports: Kidney stones Neuro/Psych: Reports: Depression Musculoskeletal: Reports: None Cancer: Reports: None - Surgical History General Surgical History: Reports: Other (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, INTESTINAL RESECTION) - Family History Family History: Reports: Unknown - Social History Smoking Status: Never smoker Hx Substance Use: Yes (Frequent ER visits for pain med) Alcohol Screening: None - Immunizations Tetanus Shot up to Date: Yes Physical Exam - Physical Exam Appearance: Well-appearing Ill-appearing: None Pain Distress: Mild Eyes: DISHA, EOMI, Conjunctiva clear ENT: Ears normal, Nose normal, Oropharynx normal Respiratory: Airway patent, Breath sounds clear, Breath sounds equal, Respirations nonlabored Cardiovascular: RRR, Pulses normal, No rub, No murmur GI/: Soft, Nontender, No masses, Bowel sounds normal, No Organomegaly Musculoskeletal: Normal strength, ROM intact, No edema, No calf tenderness Skin: Warm, Dry, Normal color Neurological: Sensation intact, Motor intact, Reflexes intact, Cranial nerves intact, Alert, Oriented Psychiatric: Affect appropriate, Mood appropriate Critical Care Note - Critical Care Note Total Time (mins): 0 Course - Course Orders, Labs, Meds: Orders Category Date Time Status Dicyclomine Inj [Bentyl] MEDS 09/10/16 14:11 Discontinued 20 mg IM ONCE STA Ketorolac Tromethamine [Toradol] MEDS 09/10/16 14:20 Discontinued 60 mg IM ONCE STA Morphine Sulfate [Morphine 4 mg/ml Syringe] MEDS 09/10/16 14:32 Discontinued 4 mg IM ONCE STA CT ABDOMEN/PELVIS WO CONTRAST Stat RADS 09/10/16 14:02 Ordered Medications Discontinued Medications Generic Name Dose Route Start Last Admin Trade Name Esperanza PRN Reason Stop Dose Admin Dicyclomine HCl 20 mg 09/10/16 14:11 09/10/16 14:24 Bentyl IM 09/10/16 14:12 20 mg ONCE STA Administration Ketorolac Tromethamine 60 mg 09/10/16 14:20 09/10/16 14:25 Toradol IM 09/10/16 14:21 60 mg ONCE STA Administration Morphine Sulfate 4 mg 09/10/16 14:32 Morphine 4 Mg/Ml Syringe IM 09/10/16 14:33 ONCE STA Vital Signs: Temp Pulse Resp BP Pulse Ox 09/10/16 13:40 98.1 F 105 H 20 122/52 L 99 Departure - Departure Time of Disposition: 15:00 Disposition: HOME SELF-CARE Discharge Problem: Abdominal pain Instructions: Abdominal Pain (ED) Condition: Good Pt referred to PMD for follow-up: No Additional Instructions: Please call your Family Physician as soon as possible to schedule a follow-up appointment. Allergies/Adverse Reactions: Allergies No Known Allergies Allergy (Verified 08/15/16 08:47) Home Medications: Ambulatory Orders Adalimumab [Humira] 40 mg SQ DIRECTED 05/03/16 Multivitamin 1 cap PO DAILY 07/16/16 Phenazopyridine HCl [Pyridium] 200 mg PO TID 08/02/16 Ibuprofen [Motrin] 600 mg PO QID PRN #30 tablet 08/15/16 Promethazine HCl [Phenergan Supp] 1 - 2 supp RC QID PRN #12 supp 08/15/16
[2016-09-10] MEDS ORDERED: MORPHINE 4 MG/ML SYRINGE IM STA (14:32)
--- NOTE | 2016-09-10 14:44 | CT ---
EXAM: CT abdomen pelvis without contrast HISTORY: Lower abdominal pain, history of Crohn's COMPARISON: 06/13/2016 TECHNIQUE: CT abdomen pelvis performed without intravenous contrast. Coronal and sagittal reformat asmita images obtained. The FINDINGS: The lung bases clear. No free air. No acute abnormalities of the bones. Heart normal i n size. Evaluation organ parenchyma limited without contrast. Liver appears normal. Gallbladder a ppears normal. Pancreas appears normal. Spleen appears normal. Adrenals appear normal. No hydron ephrosis or nephrolithiasis. Sub centimeter hypodensity right kidney, too small to characterize. A annamaria normal in caliber. No ascites. Bladder unremarkable. Prostate normal in size. Stomach appea rs normal. Scattered fluid-filled loops of small bowel with scattered fluid levels, may represent mi ld enteritis. No dilated loops small bowel. Status post right colectomy. There is fluid in the tra nsverse colon. Increased submucosal fat deposition in the rectosigmoid colon. No bowel wall thicke kati or inflammatory changes identified. Increase number of normal-sized right lower quadrant and m esenteric lymph nodes, nonspecific and unchanged. IMPRESSION: 1. Scattered fluid-filled loops of small bowel with scattered fluid levels may represent mild enter itis. No bowel wall thickening or acute inflammatory changes identified. Fluid in the transverse c olon may relate to diarrhea and enteritis process. 2. Increase submucosal fat deposition in the colon, a finding be seen in sequela of remote inflamma tion or infection in this patient with history of Crohn disease. 3. Status post right colectomy. 4. Increase number of normal-sized right lower quadrant and mesenteric lymph nodes, nonspecific, un changed.
== END 2016-09-10 15:05 | disposition home or self-care (01) ==
LOC: ED 13:39
DX: R10.31 Right lower quadrant pain (principal); Z87.19 Personal history of other diseases of the digestive system; Z79.899 Other long term (current) drug therapy
CPT/HCPCS: 96372; 99283

== ENCOUNTER 2016-09-22 06:53 | Emergency (ER) ==
[2016-09-22 06:53] VITALS: BMI 25.2
[2016-09-22 07:10] VITALS: BP 116/79; TEMP 98.1
[2016-09-22 07:58] LABS: BASOPHILS % (AUTO) 0.3 % (0.0-3.0); EOSINOPHILS # (AUTO) 0.1 K/ul (0.0-0.7); EOSINOPHILS % (AUTO) 2.1 % (0.0-7.0); HEMATOCRIT 34.9 % (42.0-52.0); HEMOGLOBIN 12.6 g/dl (14.0-18.0); IMMATURE GRANULOCYTE % (AUTO) 1.1 % (0.0-5.0); LYMPHOCYTES # (AUTO) 2.7 K/uL (0.60-3.4); MEAN CORPUSCULAR HEMOGLOBIN 30.8 pg (27.0-31.0); MEAN CORPUSCULAR HGB CONC 36.1 (31.8-35.4); MEAN CORPUSCULAR VOLUME 85.3 fl (80.0-94.0); MONOCYTES # (AUTO) 0.7 K/uL (0.4-2.0); MONOCYTES % (AUTO) 10.4 (0-10); NEUTROPHILS % (AUTO) 45.1; PLATELET COUNT 186 10^3/uL (140-440); RED BLOOD COUNT 4.09 10^6/ul (4.70-6.10); WHITE BLOOD COUNT 6.64 K/ul (4.2-10.2)
[2016-09-22 08:24] LABS: ALBUMIN 4.3 g/dL (3.4-5.0); ALBUMIN/GLOBULIN RATIO 1.34; ANION GAP 12.7; BILIRUBIN,TOTAL 0.61 mg/dL (0.00-1.20); BUN/CREATININE RATIO 13.68; CALCIUM 9.2 mg/dL (8.2-10.2); CREATININE 0.95 mg/dL (0.60-1.10); POTASSIUM 3.7 mmol/L (3.5-5.1); TOTAL PROTEIN 7.5 g/dL (6.4-8.2)
--- NOTE | 2016-09-22 08:35 | CT ---
EXAM: CT ABDOMEN AND PELVIS HISTORY: Left lower quadrant abdominal pain, history of Crohn disease TECHNIQUE: CT abdomen and pelvis without intravenous contrast. Images were reconstructed using 5 m m section thickness. Reformations were prepared. COMPARISON: 09/10/2016 FINDINGS: Diagnostic limitations exist without including contrast enhanced images. No focal hepatic or spleni c lesions identified. Gallbladder, pancreas and adrenal glands appear grossly normal. Kidneys have multiple small cortical cystic masses (0.6 cm or less) some which have relative high attenuation po ssibly related to cysts. These appear stable. No hydronephrosis. Normal abdominal aorta. Mildly prominent periaortic and mesenteric lymph nodes including right lower quadrant similar to that previ ously seen, nonspecific. Stomach appears normal. Previous right colectomy. There is increased submucosal fat deposition wit hin most of the colon which is likely related to previous bouts of inflammation given the patient's history of Crohn disease. There is lower pelvic fat stranding which may be related to early enteroco litis or conceivably cystitis. This has a new or more noticeable since previous exam. Fluid consis tency stool within the rectum possibly related to diarrhea. No evidence of bowel obstruction. Ther e is no ascites or abscess. Ventral abdominal wall is intact. The bones are within normal limits. Lung bases are free of acute infiltrate. No pneumoperitoneum. IMPRESSION: 1. Cannot exclude early colitis, mainly at the rectosigmoid level. No bowel obstruction, abscess o r free air. No ascites. 2. Previous right colectomy. 3. Prominent retroperitoneal and mesenteric lymph nodes, similar to that previously seen, nonspecif ic. 4. Multiple stable tiny renal cortical cysts are suggested. These can be correlated with ultrasoun d.
[2016-09-22 08:53] LABS: AMYLASE 55 U/L (25-115); LIPASE 19 U/L (8-78)
--- NOTE | 2016-09-22 09:11 | ED.PDOC ---
General ED Provider: Dr. SHARAN MCHUGH Chief Complaint: Abdominal Pain Stated Complaint: abdominal pain chronic Time Seen by Physician: 07:00 (seen with shree ) Mode of Arrival: Walk-In Information Source: Patient Exam Limitations: No limitations Primary Care Provider: ROSALINE CASTORENA Nursing and Triage Documentation Reviewed and Agree: Yes (seen with nursing staff at all times ) GI Complaint Exam - Abdominal Pain Complaint/Exam Onset: Gradual Duration: 1 day Symptoms Are: Still present Timing: Constant Initial Severity: Mild Current Severity: Mild Location of Pain: Discrete Character: Reports: Cramping Aggravating: Reports: None Alleviating: Reports: None Associated Signs and Symptoms: Denies: Diaphoresis, Fever, Cough, Chest pain, Dizziness, Back pain, Constipation, Blood in stool, Dysuria, Urinary frequency, Decreased urine output, Decreased appetite, Discharge, Nausea, Vomiting, Diarrhea, Decreased activity Related History: Reports: Similar episode AAA Risk Factors: Reports: None Cardiac Risk Factors: Reports: None Testicular Torsion Risk Factors: Reports: None Surgical Obstruction Risk Factors: Reports: None Related Surgical History: Reports: None Abdominal Findings: Present: None Differential Diagnoses: Appendicitis, Bowel Obstruction, Constipation, Gastroenteritis Review of Systems - Review Of Systems Constitutional: Reports: No symptoms Eyes: Reports: No symptoms Ears, Nose, Mouth, Throat: Reports: No symptoms Respiratory: Reports: No symptoms Cardiac: Reports: No symptoms GI: Reports: Abdominal pain : Reports: No symptoms Musculoskeletal: Reports: No symptoms Skin: Reports: No symptoms Neurological: Reports: No symptoms Endocrine: Reports: No symptoms Hematologic/Lymphatic: Reports: No symptoms All Other Systems: Reviewed and Negative Past Medical History - Past Medical History Previously Healthy: No Endocrine: Reports: None, Hypothyroid, Dyslipidemia Cardiovascular: Reports: None Respiratory: Reports: None Hematological: Reports: None Gastrointestinal: Reports: GERD, Crohn's, Pancreatitis Genitourinary: Reports: Kidney stones Neuro/Psych: Reports: Depression Musculoskeletal: Reports: None Cancer: Reports: None - Surgical History General Surgical History: Reports: Other (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, INTESTINAL RESECTION) - Family History Family History: Reports: Unknown - Social History Smoking Status: Never smoker Hx Substance Use: No Alcohol Screening: None - Immunizations Tetanus Shot up to Date: No Physical Exam - Physical Exam Appearance: Well-appearing, No pain distress, Well-nourished Eyes: DISHA, EOMI, Conjunctiva clear ENT: Ears normal, Nose normal, Oropharynx normal Respiratory: Airway patent, Breath sounds clear, Breath sounds equal, Respirations nonlabored Cardiovascular: RRR, Pulses normal, No rub, No murmur GI/: Soft, Nontender, No masses, Bowel sounds normal, No Organomegaly Musculoskeletal: Normal strength, ROM intact, No edema, No calf tenderness Skin: Warm, Dry, Normal color Neurological: Sensation intact, Motor intact, Reflexes intact, Cranial nerves intact, Alert, Oriented Psychiatric: Affect appropriate, Mood appropriate Interpretation - Radiology Interpretation Radiology Interpretation By: Radiologist Radiology Results: No acute changes Critical Care Note - Critical Care Note Total Time (mins): 0 Course - Course Hematology/Chemistry: 09/22/16 07:50 09/22/16 07:50 Orders, Labs, Meds: Lab Review 09/22/16 07:50 WBC 6.64 RBC 4.09 L Hgb 12.6 L Hct 34.9 L MCV 85.3 MCH 30.8 MCHC 36.1 H RDW Coeff of Svitlana 12.5 Plt Count 186 Immature Gran % (Auto) 1.1 Neut % (Auto) 45.1 Lymph % (Auto) 41.0 [place] % (Auto) 10.4 H Eos % (Auto) 2.1 Baso % (Auto) 0.3 Immature Gran # (Auto) 0.1 Neut # 3.0 Lymph # 2.7 [place] # 0.7 Eos # 0.1 Baso # 0.0 Sodium 138 Potassium 3.7 Chloride 108 H Carbon Dioxide 21 Anion Gap 12.7 BUN 13 Creatinine 0.95 Estimated GFR (MDRD) 91.00 BUN/Creatinine Ratio 13.68 Glucose 94 Calcium 9.2 Total Bilirubin 0.61 AST 25 ALT 57 Alkaline Phosphatase 95 Total Protein 7.5 Albumin 4.3 Globulin 3.2 Albumin/Globulin Ratio 1.34 Amylase 55 Lipase 19 Orders Category Date Time Status AMYLASE Stat LAB 09/22/16 07:50 Completed CBC W/ AUTO DIFF Stat LAB 09/22/16 07:50 Completed COMPREHENSIVE METABOLIC PANEL Stat LAB 09/22/16 07:50 Completed LIPASE Stat LAB 09/22/16 07:50 Completed UA [URINALYSIS C & S IF INDICATED] Stat LAB 09/22/16 07:[address] ABDOMEN/PELVIS WO CONTRAST Stat RADS 09/22/16 07:40 Completed Vital Signs: Temp Pulse Resp BP Pulse Ox 09/22/16 07:03 98.1 F 98 H 16 116/79 98 Departure - Departure Time of Disposition: 09:10 Disposition: HOME SELF-CARE Discharge Problem: Abdominal pain Instructions: Abdominal Pain (ED), Chronic Abdominal Pain (ED) Condition: Good Pt referred to PMD for follow-up: Yes Additional Instructions: Please call your Family Physician as soon as possible to schedule a follow-up appointment. Allergies/Adverse Reactions: Allergies No Known Allergies Allergy (Verified 08/15/16 08:47) Home Medications: Ambulatory Orders Adalimumab [Humira] 40 mg SQ DIRECTED 05/03/16 Multivitamin 1 cap PO DAILY 07/16/16 Ibuprofen [Motrin] 600 mg PO QID PRN #30 tablet 08/15/16 Promethazine HCl [Phenergan Supp] 1 - 2 supp RC QID PRN #12 supp 08/15/16
== END 2016-09-22 09:21 | disposition home or self-care (01) ==
LOC: ED 06:53
DX: R10.9 Unspecified abdominal pain (principal); G89.29 Other chronic pain; Z87.19 Personal history of other diseases of the digestive system; Z79.899 Other long term (current) drug therapy
CPT/HCPCS: 36415; 80053; 82150; 83690; 85025; 99283

== ENCOUNTER 2016-10-03 07:55 | Emergency (ER) ==
[2016-10-03 07:55] VITALS: BMI 25.2
[2016-10-03 08:00] VITALS: BP 123/79; TEMP 98.2
--- NOTE | 2016-10-03 08:17 | ED.PDOC ---
General ED Provider: Dr. POLO LAWRENCE JR Chief Complaint: Abdominal Pain Stated Complaint: PATIENT STATES HE HAS BEEN HAVING ABD. PAIN FOR 2-3 DAYS AND HE CALLED HIS DRCrow AND HE TOLD HIM TO COME TO ER. PATIENT STATES "I DON'T THINK HE WANTS TO HELP ME BECAUSE I HAVE A MEDICAL CARD." PATIENT HOLDING ABD.[End] STATES NEW RULES FOR [place], NEW PAIN LLQ PATIETN COMPLAINS OF PAIN EXAM IS NONFOCAL WITH SLIGHT SWELLING BILATEAL LOWER QUADRANTS Time Seen by Physician: 08:15 Mode of Arrival: Walk-In Information Source: Patient Exam Limitations: No limitations Primary Care Provider: ROSALINE CASTORENA Nursing and Triage Documentation Reviewed and Agree: No Review of Systems - Review Of Systems Constitutional: Reports: Malaise GI: Reports: Abdominal pain : Reports: No symptoms Musculoskeletal: Reports: No symptoms Skin: Reports: No symptoms Neurological: Reports: No symptoms Endocrine: Reports: No symptoms Hematologic/Lymphatic: Reports: No symptoms All Other Systems: Other Past Medical History - Past Medical History Previously Healthy: No Endocrine: Reports: None, Hypothyroid, Dyslipidemia Cardiovascular: Reports: None Respiratory: Reports: None Hematological: Reports: None Gastrointestinal: Reports: GERD, Crohn's, Pancreatitis Genitourinary: Reports: Kidney stones Neuro/Psych: Reports: Depression Musculoskeletal: Reports: None Cancer: Reports: None - Surgical History General Surgical History: Reports: Other (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, INTESTINAL RESECTION) - Family History Family History: Reports: Unknown - Social History Smoking Status: Never smoker Hx Substance Use: Yes (Frequent ER visits for pain med) Alcohol Screening: None Pt Occupation: WORKING AT [employer] Physical Exam - Physical Exam Appearance: Well-appearing, Thin Pain Distress: Moderate GI/: Soft, Tender Psychiatric: Anxious Critical Care Note - Critical Care Note Total Time (mins): 0 Course - Course Hematology/Chemistry: 10/03/16 08:30 10/03/16 08:30 Orders, Labs, Meds: Lab Review 10/03/16 10/03/16 08:30 08:37 WBC 6.33 RBC 4.16 L Hgb 12.9 L Hct 35.7 L MCV 85.8 MCH 31.0 MCHC 36.1 H RDW Coeff of Svitlana 12.7 Plt Count 215 Immature Gran % (Auto) 0.3 Neut % (Auto) 48.5 Lymph % (Auto) 38.7 [place] % (Auto) 9.6 Eos % (Auto) 2.7 Baso % (Auto) 0.2 Immature Gran # (Auto) 0.0 Neut # 3.1 Lymph # 2.5 [place] # 0.6 Eos # 0.2 Baso # 0.0 Sodium 140 Potassium 3.6 Chloride 106 Carbon Dioxide 20 L Anion Gap 17.6 BUN 13 Creatinine 1.04 Estimated GFR (MDRD) 82.00 BUN/Creatinine Ratio 12.50 Glucose 95 Calcium 9.1 Total Bilirubin 0.79 AST 24 ALT 48 Alkaline Phosphatase 96 Total Protein 7.5 Albumin 4.2 Globulin 3.3 Albumin/Globulin Ratio 1.27 Amylase 55 Lipase 20 Urine Color Yellow Urine Clarity Clear Urine pH 6.0 Ur Specific [place] >=1.030 Urine Protein 2+ Urine Glucose (UA) Negative Urine Ketones Negative Urine Blood Trace-lysed Urine Nitrite Negative Urine Bilirubin 1+ Urine Urobilinogen 0.2 Ur Leukocyte Esterase Negative Urine Microscopic RBC 2-5 Ur Squamous Epith Cells Not present Urine Mucus 2+ Orders Category Date Time Status AMYLASE Stat LAB 10/03/16 08:30 Completed CBC W/ AUTO DIFF Stat LAB 10/03/16 08:30 Completed COMPREHENSIVE METABOLIC PANEL Stat LAB 10/03/16 08:30 Completed LIPASE Stat LAB 10/03/16 08:30 Completed URINALYSIS C & S IF INDICATED Stat LAB 10/03/16 08:37 Completed Vital Signs: Temp Pulse Resp BP Pulse Ox 10/03/16 07:55 98.2 F 102 H 14 123/79 98 Departure - Departure Time of Disposition: 08:17 Disposition: HOME SELF-CARE Discharge Problem: Abdominal pain Instructions: Chronic Abdominal Pain (ED) Condition: Good Pt referred to PMD for follow-up: Yes Additional Instructions: ACTIVITY HELPS ABDOMINAL SYMPTOMS PLENTY OF FIBER, PLENTY OF FLUIDS AND EXERCISE TOLERATED OPIATES ARE NOT APPROPRIATE FOR CHRONIC PAIN no evidence of new disease may add miralax if OK with your physician Prescriptions: Polyethylene Glycol 3350 [Miralax] 17 gm PO DAILY PRN #510 powder PRN Reason: Constipation Allergies/Adverse Reactions: Allergies No Known Allergies Allergy (Verified 10/03/16 07:58) Home Medications: Ambulatory Orders Adalimumab [Humira] 40 mg SQ DIRECTED 05/03/16 Ondansetron HCl [Zofran] 4 mg PO PRN PRN 10/03/16 Polyethylene Glycol 3350 [Miralax] 17 gm PO DAILY PRN #510 powder 10/03/16
[2016-10-03 08:36] LABS: BASOPHILS % (AUTO) 0.2 % (0.0-3.0); EOSINOPHILS # (AUTO) 0.2 K/ul (0.0-0.7); EOSINOPHILS % (AUTO) 2.7 % (0.0-7.0); HEMATOCRIT 35.7 % (42.0-52.0); HEMOGLOBIN 12.9 g/dl (14.0-18.0); IMMATURE GRANULOCYTE % (AUTO) 0.3 % (0.0-5.0); LYMPHOCYTES # (AUTO) 2.5 K/uL (0.60-3.4); LYMPHOCYTES % (AUTO) 38.7 (10.0-50.0); MEAN CORPUSCULAR HGB CONC 36.1 (31.8-35.4); MEAN CORPUSCULAR VOLUME 85.8 fl (80.0-94.0); MONOCYTES # (AUTO) 0.6 K/uL (0.4-2.0); MONOCYTES % (AUTO) 9.6 (0-10); NEUTROPHILS # (AUTO) 3.1 K/ul (2.0-6.9); NEUTROPHILS % (AUTO) 48.5; PLATELET COUNT 215 10^3/uL (140-440); RED BLOOD COUNT 4.16 10^6/ul (4.70-6.10); WHITE BLOOD COUNT 6.33 K/ul (4.2-10.2)
[2016-10-03 08:50] LABS: BILIRUBIN,URINE 1+ (NEGATIVE); KETONES,URINE Negative (NEGATIVE); LEUKOCYTE ESTERASE ,URINE Negative (NEGATIVE); NITRITE,URINE Negative (NEGATIVE); PROTEIN,URINE 2+ (NEGATIVE); URINE, BLOOD Trace-lysed (NEGATIVE)
[2016-10-03 08:57] LABS: ALBUMIN 4.2 g/dL (3.4-5.0); ALBUMIN/GLOBULIN RATIO 1.27; ANION GAP 17.6; BILIRUBIN,TOTAL 0.79 mg/dL (0.00-1.20); BUN/CREATININE RATIO 12.5; CALCIUM 9.1 mg/dL (8.2-10.2); CREATININE 1.04 mg/dL (0.60-1.10); POTASSIUM 3.6 mmol/L (3.5-5.1); TOTAL PROTEIN 7.5 g/dL (6.4-8.2)
[2016-10-03 09:06] LABS: ADD URINE MICROSCOPIC YES
== END 2016-10-03 09:45 | disposition home or self-care (01) ==
LOC: ED 07:55
DX: R10.32 Left lower quadrant pain (principal); Z87.19 Personal history of other diseases of the digestive system
CPT/HCPCS: 36415; 80053; 81001; 82150; 83690; 85025; 99283

== ENCOUNTER 2016-11-03 12:58 | Emergency (ER) ==
[2016-11-03 13:01] VITALS: BP 133/83; TEMP 97.8; BMI 25.0
--- NOTE | 2016-11-03 13:22 | ED.PDOC ---
General ED Provider: Dr. SHARAN MCHUGH Chief Complaint: Bite Stated Complaint: TICK BITE RIGHT ANKLE Time Seen by Physician: 13:00 (SEEN WITH VOKI FROM LAB AT ALL TIMES ) Mode of Arrival: Walk-In Information Source: Patient Exam Limitations: No limitations Nursing and Triage Documentation Reviewed and Agree: Yes (PRESENTED SMALL TICK ON A TAPE ) Trauma/Injury Complaint Exam - Bite Injury Complaint/Exam Location of Bite: TICK 1 DAY AGO Initial Severity: Mild Current Severity: None Aggravating: Reports: None Alleviating: Reports: None Associated Signs and Symptoms: Denies: Fever, Erythema, Drainage, Swelling, Lymphadenopathy, Numbness, Tingling, Limited ROM Review of Systems - Review Of Systems Constitutional: Reports: No symptoms Eyes: Reports: No symptoms Ears, Nose, Mouth, Throat: Reports: No symptoms Respiratory: Reports: No symptoms Cardiac: Reports: No symptoms GI: Reports: No symptoms : Reports: No symptoms Musculoskeletal: Reports: No symptoms Skin: Reports: No symptoms Neurological: Reports: No symptoms Endocrine: Reports: No symptoms Hematologic/Lymphatic: Reports: No symptoms All Other Systems: Reviewed and Negative Past Medical History - Past Medical History Previously Healthy: No Endocrine: Reports: None, Hypothyroid, Dyslipidemia Cardiovascular: Reports: None Respiratory: Reports: None Hematological: Reports: None Gastrointestinal: Reports: GERD, Crohn's, Pancreatitis Genitourinary: Reports: Kidney stones Neuro/Psych: Reports: Depression Musculoskeletal: Reports: None Cancer: Reports: None - Surgical History General Surgical History: Reports: Other (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, INTESTINAL RESECTION) - Family History Family History: Reports: Unknown - Social History Smoking Status: Never smoker Hx Substance Use: Yes (Frequent ER visits for pain med) Alcohol Screening: None Physical Exam - Physical Exam Appearance: Well-appearing, No pain distress, Well-nourished Eyes: DISHA, EOMI, Conjunctiva clear ENT: Ears normal, Nose normal, Oropharynx normal Respiratory: Airway patent, Breath sounds clear, Breath sounds equal, Respirations nonlabored Cardiovascular: RRR, Pulses normal, No rub, No murmur GI/: Soft, Nontender, No masses, Bowel sounds normal, No Organomegaly Musculoskeletal: Normal strength, ROM intact, No edema, No calf tenderness Skin: Warm, Dry (ANKLE WNL ), Normal color Neurological: Sensation intact, Motor intact, Reflexes intact, Cranial nerves intact, Alert, Oriented Psychiatric: Affect appropriate, Mood appropriate Critical Care Note - Critical Care Note Total Time (mins): 0 Course - Course Orders, Labs, Meds: Orders Category Date Time Status EHRLICHIA DNA, PCR Stat LAB 11/03/16 13:17 Ordered LYME, WESTERN BLOT, SERUM Stat LAB 11/03/16 Ordered Vital Signs: Temp Pulse Resp BP Pulse Ox 11/03/16 12:58 97.8 F 97 H 18 133/83 98 Departure - Departure Time of Disposition: 13:45 (photo submitted area examined no ticks noted ) Disposition: HOME SELF-CARE Discharge Problem: Tick bite Qualifiers: Encounter type: initial encounter Qualifier Code: (W57.XXXA) Bitten or stung by nonvenomous insect and other nonvenomous arthropods, initial encounter Instructions: Lyme Disease (ED), Tick Bite (ED), [place] Spotted Fever ( ED), Insect Bite or Sting (ED) Condition: Good Pt referred to PMD for follow-up: Yes Additional Instructions: Please call your Family Physician as soon as possible to schedule a follow-up appointment. Allergies/Adverse Reactions: Allergies No Known Allergies Allergy (Verified 11/03/16 13:02) Home Medications: Ambulatory Orders Adalimumab [Humira] 40 mg SQ DIRECTED 05/03/16 Ondansetron HCl [Zofran] 4 mg PO PRN PRN 10/03/16
[2016-11-06 13:20] LABS: IGG P18 AB Absent (.); IGG P23 AB Absent (.); IGG P28 AB Absent (.); IGG P30 AB Absent (.); IGG P39 AB Present (.); IGG P41 AB Present (.); IGG P45 AB Absent (.); IGG P58 AB Absent (.); IGG P66 AB Present (.); IGG P93 AB Absent (.); IGM P39 AB Absent (.); IGM P41 AB Absent (.); LYME IGG WB INTERP Negative (.); LYME IGM WB INTERP Negative (.)
== END 2016-11-03 13:33 | disposition home or self-care (01) ==
LOC: ED 12:58
DX: S90.561A Insect bite (nonvenomous), right ankle, initial encounter (principal); W57.XXXA Bitten or stung by nonvenomous insect and other nonvenomous arthropods, initial encounter
CPT/HCPCS: 36415; 80053; 81001; 82150; 83690; 85025; 85651; 86617; 87651; 87798; 87880; 93005; 93010; 96372; 99282; 99283

== ENCOUNTER 2016-11-03 19:44 | Emergency (ER) ==
[2016-11-03 19:49] VITALS: BP 103/68; TEMP 100.1; BMI 24.6
[2016-11-03 20:17] LABS: BASOPHILS % (AUTO) 0.1 % (0.0-3.0); EOSINOPHILS # (AUTO) 0.2 K/ul (0.0-0.7); HEMATOCRIT 35.5 % (42.0-52.0); IMMATURE GRANULOCYTE % (AUTO) 0.3 % (0.0-5.0); LYMPHOCYTES # (AUTO) 3.4 K/uL (0.60-3.4); MEAN CORPUSCULAR HEMOGLOBIN 31.1 pg (27.0-31.0); MEAN CORPUSCULAR HGB CONC 36.6 (31.8-35.4); MEAN CORPUSCULAR VOLUME 84.9 fl (80.0-94.0); MONOCYTES # (AUTO) 0.9 K/uL (0.4-2.0); MONOCYTES % (AUTO) 10.9 (0-10); NEUTROPHILS # (AUTO) 3.3 K/ul (2.0-6.9); NEUTROPHILS % (AUTO) 42.7; PLATELET COUNT 193 10^3/uL (140-440); RED BLOOD COUNT 4.18 10^6/ul (4.70-6.10); WHITE BLOOD COUNT 7.82 K/ul (4.2-10.2)
--- NOTE | 2016-11-03 20:19 | CT ---
EXAM: Noncontrast CT of the abdomen and pelvis. HISTORY: Abdominal pain. Prior history of pancreatitis, this disease and prior bowel resection. COMPARISON: 09/22/2016 TECHNIQUE: Contiguous axial images at 3 mm intervals were obtained from lung bases through the pelv is. No contrast was given. Coronal reformats were reviewed. FINDINGS: The study is limited without contrast. CHEST: The lung bases show no lobar consolidation or effusion. The heart size is within normal harrison its. ABDOMEN: Evaluation of the soft tissue organs is limited without contrast. LIVER: Noncontrast images of the liver show no solid mass lesion or intrahepatic ductal dilatation. BILIARY: The gallbladder is not well distended. No gallstones are noted. No pericholecystic fluid or inflammation. The common bile duct is normal. SPLEEN: The spleen is unremarkable. PANCREAS: The pancreas shows no mass lesion or peripancreatic inflammation. ADRENAL GLANDS: The adrenal glands are normal. RENAL: The kidneys show no hydronephrosis or nephrolithiasis. There are no obstructing ureteral st ones. No solid mass lesions are identified. RETROPERITONEUM: The aorta is unopacified. No aneurysm is identified. No significant aortic calci fications are seen. There is no retroperitoneal or mesenteric adenopathy. BOWEL: The bowel is unopacified. There are postoperative changes of a right hemicolectomy. Bowel a nastomosis sutures are seen in the right upper quadrant. There is no obstruction. There is mild rainey bmucosal edema throughout the transverse and descending colon. No significant surrounding inflammat ory changes seen. There is no bowel wall thickening or obstruction. No definite mass lesions are i dentified. PELVIS: BLADDER: The bladder is not well distended which limits evaluation.. GENITOURINARY STRUCTURES: The prostate is unremarkable. OSSEOUS STRUCTURES: The osseous structures are normal for age. IMPRESSION 1. Postoperative changes with prior ascending colectomy consistent the given history of Crohn's dise ase. 2. Prominence of the submucosal fat throughout the remainder of the colon which is nonspecific find ing that can be seen with early colitis. No surrounding inflammatory changes or definite bowel wall thickening is seen. No obstruction. There is no free fluid or free air or abscess. 3. Poorly distended bladder which limits evaluation.
[2016-11-03 20:38] LABS: ALBUMIN 4.2 g/dL (3.4-5.0); ALBUMIN/GLOBULIN RATIO 1.2; ANION GAP 13.2; BILIRUBIN,TOTAL 0.7 mg/dL (0.00-1.20); BUN/CREATININE RATIO 11.11; CALCIUM 9.8 mg/dL (8.2-10.2); CREATININE 1.08 mg/dL (0.60-1.10); POTASSIUM 3.2 mmol/L (3.5-5.1); TOTAL PROTEIN 7.7 g/dL (6.4-8.2)
[2016-11-03 20:48] LABS: ERYTHROCYTE SEDIMENTATION RATE 22 mm/hr (0-15); ESR INTERNAL QC INTERNAL QC VALID
[2016-11-03 20:54] LABS: BILIRUBIN,URINE Negative (NEGATIVE); KETONES,URINE Trace (NEGATIVE); LEUKOCYTE ESTERASE ,URINE Negative (NEGATIVE); NITRITE,URINE Negative (NEGATIVE); PROTEIN,URINE 1+ (NEGATIVE); URINE, BLOOD Trace-intact (NEGATIVE)
[2016-11-03 20:59] LABS: ADD URINE MICROSCOPIC YES
--- NOTE | 2016-11-03 21:03 | ED.PDOC ---
General ED Provider: Dr. JULEE GONZALEZ-ER Chief Complaint: Abdominal Pain Stated Complaint: my crohns is acting up Time Seen by Physician: 21:01 Mode of Arrival: Walk-In Information Source: Patient Exam Limitations: No limitations Nursing and Triage Documentation Reviewed and Agree: Yes GI Complaint Exam - Abdominal Pain Complaint/Exam Onset: Gradual Duration: several hours Symptoms Are: Still present Timing: Constant Initial Severity: Mild Current Severity: Moderate Location of Pain: Diffuse Character: Reports: Dull, Aching, Cramping Alleviating: Reports: None Associated Signs and Symptoms: Reports: Nausea. Denies: Diaphoresis, Fever, Cough, Chest pain, Dizziness, Back pain, Constipation, Blood in stool, Dysuria, Urinary frequency, Decreased urine output, Decreased appetite, Discharge, Diarrhea, Decreased activity Abdominal Findings: Present: None Quality Indicator For Non-Traumatic Chest Pain/Syncope: EKG Performed Review of Systems - Review Of Systems Constitutional: Reports: No symptoms Eyes: Reports: No symptoms Ears, Nose, Mouth, Throat: Reports: No symptoms Respiratory: Reports: No symptoms Cardiac: Reports: No symptoms GI: Reports: Abdominal pain, Nausea : Reports: No symptoms Musculoskeletal: Reports: No symptoms Skin: Reports: No symptoms Neurological: Reports: No symptoms Endocrine: Reports: No symptoms Hematologic/Lymphatic: Reports: No symptoms All Other Systems: Reviewed and Negative Past Medical History - Past Medical History Previously Healthy: No Endocrine: Reports: None, Hypothyroid, Dyslipidemia Cardiovascular: Reports: None Respiratory: Reports: None Hematological: Reports: None Gastrointestinal: Reports: GERD, Crohn's, Pancreatitis Genitourinary: Reports: Kidney stones Neuro/Psych: Reports: Depression Musculoskeletal: Reports: None Cancer: Reports: None - Surgical History General Surgical History: Reports: Other (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, INTESTINAL RESECTION) - Family History Family History: Reports: Unknown - Social History Smoking Status: Never smoker Hx Substance Use: Yes (Frequent ER visits for pain med) Alcohol Screening: None Lives: With family - Immunizations Tetanus Shot up to Date: Yes Physical Exam - Physical Exam Appearance: Well-appearing, No pain distress, Well-nourished Eyes: DISHA ENT: Ears normal, Nose normal, Oropharynx normal Neck: Supple Respiratory: Airway patent, Breath sounds clear, Breath sounds equal, Respirations nonlabored Cardiovascular: RRR, Pulses normal, No rub, No murmur GI/: Soft, No masses, Bowel sounds normal Musculoskeletal: Normal strength, ROM intact, No edema, No calf tenderness Skin: Warm, Dry, Normal color Neurological: Sensation intact, Motor intact, Reflexes intact, Cranial nerves intact, Alert, Oriented Psychiatric: Affect appropriate, Mood appropriate Re-Evaluation - Re-Evaluation Time of Re-Evaluation: 21:30 Status: Improved Vital Signs Stable: Yes Pain Level: 0 Appearance: NAD Lungs: Clear Skin: Warm and Dry Neuro: Alert and Oriented X3 CV: RRR Critical Care Note - Critical Care Note Total Time (mins): 0 Course - Course Hematology/Chemistry: 11/03/16 20:12 11/03/16 20:12 Orders, Labs, Meds: Lab Review 11/03/16 11/03/16 20:12 20:50 WBC 7.82 RBC 4.18 L Hgb 13.0 L Hct 35.5 L MCV 84.9 MCH 31.1 H MCHC 36.6 H RDW Coeff of Svitlana 12.1 Plt Count 193 Immature Gran % (Auto) 0.3 Neut % (Auto) 42.7 Lymph % (Auto) 44.0 [place] % (Auto) 10.9 H Eos % (Auto) 2.0 Baso % (Auto) 0.1 Immature Gran # (Auto) 0.0 Neut # 3.3 Lymph # 3.4 [place] # 0.9 Eos # 0.2 Baso # 0.0 ESR 22 H Sodium 140 Potassium 3.2 L Chloride 106 Carbon Dioxide 24 Anion Gap 13.2 BUN 12 Creatinine 1.08 Estimated GFR (MDRD) 79.00 BUN/Creatinine Ratio 11.11 Glucose 122 H Calcium 9.8 Total Bilirubin 0.70 AST 24 ALT 48 Alkaline Phosphatase 86 Total Protein 7.7 Albumin 4.2 Globulin 3.5 Albumin/Globulin Ratio 1.20 Amylase 75 Lipase 49 Urine Color Yellow Urine Clarity Clear Urine pH 6.0 Ur Specific [place] 1.025 Urine Protein 1+ Urine Glucose (UA) Negative Urine Ketones Trace Urine Blood Trace-intact Urine Nitrite Negative Urine Bilirubin Negative Urine Urobilinogen 0.2 Ur Leukocyte Esterase Negative Urine Microscopic RBC 0-2 Ur Squamous Epith Cells Not present Urine Mucus 1+ Orders Category Date Time Status EKG-(ED ONLY) Stat CARDIO 11/03/16 19:53 Completed AMYLASE Stat LAB 11/03/16 20:12 Completed CBC W/ AUTO DIFF Stat LAB 11/03/16 20:12 Completed COMPREHENSIVE METABOLIC PANEL Stat LAB 11/03/16 20:12 Completed ESR Stat LAB 11/03/16 20:12 Completed LIPASE Stat LAB 11/03/16 20:12 Completed MOLECULAR GROUP A STREP Stat LAB 11/03/16 20:25 Results RAPID STREP SCREEN [STREP SCREEN] Stat LAB 11/03/16 20:25 Results URINALYSIS C & S IF INDICATED Stat LAB 11/03/16 20:50 Completed Meperidine HCl/Pf [Demerol 50 mg/ml Syringe] MEDS 11/03/16 20:57 Discontinued 50 mg IM ONCE STA Promethazine HCl [Phenergan 25 mg/ml Vial] MEDS 11/03/16 20:57 Discontinued 25 mg IM ONCE STA CT ABDOMEN/PELVIS WO CONTRAST Stat RADS 11/03/16 19:53 Completed Medications Discontinued Medications Generic Name Dose Route Start Last Admin Trade Name Freq PRN Reason Stop Dose Admin Meperidine HCl 50 mg 11/03/16 20:57 Demerol 50 Mg/Ml Syringe IM 11/03/16 20:58 ONCE STA Promethazine HCl 25 mg 11/03/16 20:57 Phenergan 25 Mg/Ml Vial IM 11/03/16 20:58 ONCE STA Vital Signs: Temp Pulse Resp BP Pulse Ox 11/03/16 19:44 100.1 F H 125 H 20 103/68 98 Departure - Departure Time of Disposition: 21:03 Disposition: HOME SELF-CARE Discharge Problem: Abdominal pain Instructions: Abdominal Pain (ED) Condition: Good Pt referred to PMD for follow-up: Yes Additional Instructions: f/u with pcp Allergies/Adverse Reactions: Allergies No Known Allergies Allergy (Verified 11/03/16 13:02) Home Medications: Ambulatory Orders Adalimumab [Humira] 40 mg SQ DIRECTED 05/03/16 Ondansetron HCl [Zofran] 4 mg PO PRN PRN 10/03/16 Disposition Discussed With: Patient
[2016-11-03] MEDS: DEMEROL 50 MG/ML SYRINGE IM STA (21:14)
[2016-11-03] MEDS: PHENERGAN 25 MG/ML VIAL IM STA (21:14)
== END 2016-11-03 21:55 | disposition home or self-care (01) ==
LOC: ED 19:44
DX: R10.84 Generalized abdominal pain (principal); R11.0 Nausea; E03.9 Hypothyroidism, unspecified; E78.5 Hyperlipidemia, unspecified; Z87.19 Personal history of other diseases of the digestive system
CPT/HCPCS: 36415; 80053; 81001; 82150; 83690; 85025; 85651; 87880; 93005; 93010; 96372; 99283

== ENCOUNTER 2016-11-15 08:46 | Emergency (ER) ==
[2016-11-15 08:54] VITALS: BP 112/68; TEMP 98.6; BMI 23.3
[2016-11-15 09:31] LABS: BASOPHILS % (AUTO) 0.3 % (0.0-3.0); EOSINOPHILS # (AUTO) 0.2 K/ul (0.0-0.7); EOSINOPHILS % (AUTO) 2.4 % (0.0-7.0); HEMATOCRIT 35.9 % (42.0-52.0); IMMATURE GRANULOCYTE % (AUTO) 0.5 % (0.0-5.0); LYMPHOCYTES # (AUTO) 2.2 K/uL (0.60-3.4); LYMPHOCYTES % (AUTO) 32.8 (10.0-50.0); MEAN CORPUSCULAR HEMOGLOBIN 30.9 pg (27.0-31.0); MEAN CORPUSCULAR HGB CONC 36.2 (31.8-35.4); MEAN CORPUSCULAR VOLUME 85.3 fl (80.0-94.0); MONOCYTES # (AUTO) 0.7 K/uL (0.4-2.0); MONOCYTES % (AUTO) 10.5 (0-10); NEUTROPHILS # (AUTO) 3.6 K/ul (2.0-6.9); NEUTROPHILS % (AUTO) 53.5; PLATELET COUNT 222 10^3/uL (140-440); RED BLOOD COUNT 4.21 10^6/ul (4.70-6.10); WHITE BLOOD COUNT 6.64 K/ul (4.2-10.2)
--- NOTE | 2016-11-15 09:40 | CT ---
EXAM: Noncontrast CT of the abdomen and pelvis. HISTORY: Abdominal pain. COMPARISON: 11/03/1969 TECHNIQUE: Contiguous axial images at 3 mm intervals were obtained from lung bases through the pelv is. No contrast was given. Coronal reformats were reviewed. FINDINGS: The study is limited without contrast. CHEST: The lung bases show no lobar consolidation or effusion. The heart size is within normal harrison its. ABDOMEN: Evaluation of the soft tissue organs is limited without contrast. LIVER: Noncontrast images of the liver show no solid mass lesion or intrahepatic ductal dilatation. BILIARY: The gallbladder is normally distended. No gallstones are noted. No pericholecystic fluid or inflammation. The common bile duct is normal. SPLEEN: The spleen is unremarkable. PANCREAS: The pancreas shows no mass lesion or peripancreatic inflammation. ADRENAL GLANDS: The adrenal glands are normal. RENAL: The kidneys show no hydronephrosis or nephrolithiasis. There is a questionable calcification in the cortex in the left upper pole. There are no obstructing ureteral stones. No solid mass lesi ons are identified. RETROPERITONEUM: The aorta is unopacified. No aneurysm is identified. No aortic calcifications ar e seen. There is no retroperitoneal or mesenteric adenopathy. BOWEL: The bowel is unopacified. There are postoperative changes of a prior right hemicolectomy. St able submucosal edema is seen throughout the colon. No surrounding inflammatory change and no bowel wall thickening. There is no obstruction or inflammatory change. There is no free fluid or free ai r. PELVIS: BLADDER: The bladder is not well distended which limits evaluation.. GENITOURINARY STRUCTURES: The prostate is unremarkable. OSSEOUS STRUCTURES: The osseous structures are normal for age. IMPRESSION 1. No acute intra-abdominal abnormality. Limited study without contrast. No obstructing ureteral stones. 2. Prior right hemicolectomy. Questionable submucosal thickening of the colon without surrounding inflammation or bowel wall thickening. Findings are nonspecific. 3. Questionable nonobstructing calcification in the upper pole of the left kidney which appears to be in the cortex.
[2016-11-15 09:50] LABS: ALBUMIN 4.3 g/dL (3.4-5.0); ALBUMIN/GLOBULIN RATIO 1.26; ANION GAP 17.6; BILIRUBIN,TOTAL 0.78 mg/dL (0.00-1.20); CALCIUM 10.1 mg/dL (8.2-10.2); POTASSIUM 3.6 mmol/L (3.5-5.1); TOTAL PROTEIN 7.7 g/dL (6.4-8.2)
--- NOTE | 2016-11-15 10:30 | ED.PDOC ---
General ED Provider: Dr. SHARAN MCHUGH Chief Complaint: Abdominal Pain Stated Complaint: chronic abdominal pain Time Seen by Physician: 09:00 Mode of Arrival: Walk-In Information Source: Patient Exam Limitations: No limitations Nursing and Triage Documentation Reviewed and Agree: Yes GI Complaint Exam - Abdominal Pain Complaint/Exam Onset: Gradual Duration: chronic Symptoms Are: Still present Timing: Constant Initial Severity: Moderate Current Severity: None Location of Pain: Diffuse Character: Reports: Cramping Aggravating: Reports: None Alleviating: Reports: None Associated Signs and Symptoms: Denies: Diaphoresis, Fever, Cough, Chest pain, Dizziness, Back pain, Constipation, Blood in stool, Dysuria, Urinary frequency, Decreased urine output, Decreased appetite, Discharge, Nausea, Vomiting, Diarrhea, Decreased activity Related History: Reports: Similar episode AAA Risk Factors: Reports: None Cardiac Risk Factors: Reports: None Testicular Torsion Risk Factors: Reports: None Surgical Obstruction Risk Factors: Reports: None Related Surgical History: Reports: None Abdominal Findings: Present: None Differential Diagnoses: Bowel Obstruction, Constipation, Diverticulitis, Gastroenteritis, Pancreatitis, UTI Review of Systems - Review Of Systems Constitutional: Reports: No symptoms Eyes: Reports: No symptoms Ears, Nose, Mouth, Throat: Reports: No symptoms Respiratory: Reports: No symptoms Cardiac: Reports: No symptoms GI: Reports: Abdominal pain : Reports: No symptoms Musculoskeletal: Reports: No symptoms Skin: Reports: No symptoms Neurological: Reports: No symptoms Endocrine: Reports: No symptoms Hematologic/Lymphatic: Reports: No symptoms All Other Systems: Reviewed and Negative Past Medical History - Past Medical History Previously Healthy: No Endocrine: Reports: None, Hypothyroid, Dyslipidemia Cardiovascular: Reports: None Respiratory: Reports: None Hematological: Reports: None Gastrointestinal: Reports: GERD, Crohn's, Pancreatitis Genitourinary: Reports: Kidney stones Neuro/Psych: Reports: Depression Musculoskeletal: Reports: None Cancer: Reports: None - Surgical History General Surgical History: Reports: Other (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, INTESTINAL RESECTION) - Family History Family History: Reports: Unknown - Social History Smoking Status: Never smoker Hx Substance Use: No Alcohol Screening: None - Immunizations Tetanus Shot up to Date: No Physical Exam - Physical Exam Appearance: Well-appearing, No pain distress, Well-nourished Eyes: DISHA, EOMI, Conjunctiva clear ENT: Ears normal, Nose normal, Oropharynx normal Respiratory: Airway patent, Breath sounds clear, Breath sounds equal, Respirations nonlabored Cardiovascular: RRR, Pulses normal, No rub, No murmur GI/: Soft, Nontender, No masses, Bowel sounds normal, No Organomegaly Musculoskeletal: Normal strength, ROM intact, No edema, No calf tenderness Skin: Warm, Dry, Normal color Neurological: Sensation intact, Motor intact, Reflexes intact, Cranial nerves intact, Alert, Oriented Psychiatric: Affect appropriate, Mood appropriate Interpretation - Radiology Interpretation Radiology Interpretation By: Radiologist Radiology Results: No acute changes Exam Interpreted: CT Scan Critical Care Note - Critical Care Note Total Time (mins): 0 Course - Course Hematology/Chemistry: 11/15/16 09:20 11/15/16 09:20 Orders, Labs, Meds: Lab Review 11/15/16 09:20 WBC 6.64 RBC 4.21 L Hgb 13.0 L Hct 35.9 L MCV 85.3 MCH 30.9 MCHC 36.2 H RDW Coeff of Svitlana 12.3 Plt Count 222 Immature Gran % (Auto) 0.5 Neut % (Auto) 53.5 Lymph % (Auto) 32.8 Daniels % (Auto) 10.5 H Eos % (Auto) 2.4 Baso % (Auto) 0.3 Immature Gran # (Auto) 0.0 Neut # 3.6 Lymph # 2.2 Daniels # 0.7 Eos # 0.2 Baso # 0.0 Sodium 140 Potassium 3.6 Chloride 105 Carbon Dioxide 21 Anion Gap 17.6 BUN 14 Creatinine 1.00 Estimated GFR (MDRD) 86.00 BUN/Creatinine Ratio 14.00 Glucose 96 Calcium 10.1 Total Bilirubin 0.78 AST 31 ALT 51 Alkaline Phosphatase 88 Total Protein 7.7 Albumin 4.3 Globulin 3.4 Albumin/Globulin Ratio 1.26 Amylase 67 Lipase 36 Orders Category Date Time Status AMYLASE Stat LAB 11/15/16 09:20 Completed CBC W/ AUTO DIFF Stat LAB 11/15/16 09:20 Completed COMPREHENSIVE METABOLIC PANEL Stat LAB 11/15/16 09:20 Completed LIPASE Stat LAB 11/15/16 09:[address] ABDOMEN/PELVIS WO CONTRAST Stat RADS 11/15/16 09:06 Completed Vital Signs: Temp Pulse Resp BP Pulse Ox 11/15/16 08:47 98.6 F 89 16 112/68 98 Departure - Departure Time of Disposition: 10:29 (this pt seen with nursing staff at all times (rere )) Disposition: HOME SELF-CARE Discharge Problem: Abdominal pain Instructions: Chronic Abdominal Pain (ED) Condition: Good Pt referred to PMD for follow-up: Yes Additional Instructions: Please call your Family Physician as soon as possible to schedule a follow-up appointment. Allergies/Adverse Reactions: Allergies No Known Allergies Allergy (Verified 11/15/16 09:00) Home Medications: Ambulatory Orders Adalimumab [Humira] 40 mg SQ DIRECTED 05/03/16 Ondansetron HCl [Zofran] 4 mg PO PRN PRN 10/03/16
[2016-11-19 12:25] LABS: BLOOD ARSENIC 10
== END 2016-11-15 10:51 | disposition home or self-care (01) ==
LOC: ED 08:46
DX: R10.84 Generalized abdominal pain (principal); G89.29 Other chronic pain; Z87.19 Personal history of other diseases of the digestive system
CPT/HCPCS: 36415; 80053; 82150; 82175; 82570; 83655; 83690; 83825; 85025; 99283

== ENCOUNTER 2016-11-17 16:11 | Outpatient (CLI) | END 2016-11-17 16:12 | disposition home or self-care (01) | LOC: LAB 16:11 | PROVIDERS: ATTEND Internal Medicine | DX: R10.9 Unspecified abdominal pain (principal); G89.29 Other chronic pain ==

== ENCOUNTER 2016-11-22 10:15 | Emergency (ER) ==
[2016-11-22 10:23] VITALS: BP 124/80; TEMP 97.9; BMI 25.4
--- NOTE | 2016-11-22 10:32 | ED.PDOC ---
General ED Provider: Dr. TRANG VARELA Chief Complaint: Abdominal Pain Stated Complaint: Hx of Crohn's dz. Flare up of abd pain x 2 days. Nauseated. No emesis. No diarrhea. No fever or chills. Time Seen by Physician: 10:29 Mode of Arrival: Walk-In Information Source: Patient Exam Limitations: No limitations Nursing and Triage Documentation Reviewed and Agree: Yes GI Complaint Exam - Abdominal Pain Complaint/Exam Onset: Sudden Duration: 2 days Symptoms Are: Still present Timing: Constant Initial Severity: Severe Current Severity: Severe Location of Pain: Diffuse Character: Reports: Aching, Throbbing, Cramping Aggravating: Reports: Movement, Position Alleviating: Reports: None Associated Signs and Symptoms: Reports: Decreased appetite, Nausea Related History: Reports: Similar episode (Crohns flare ups, pancreatitis) AAA Risk Factors: Reports: None Cardiac Risk Factors: Reports: None Testicular Torsion Risk Factors: Reports: None Surgical Obstruction Risk Factors: Reports: Prior abdominal surgery (2 partial colectomies with ostomy (reversed)) Related Surgical History: Reports: Bowel Resection Abdominal Findings: Present: None (generalized tenderness) Genitalia Exam: Present: Normal findings Review of Systems - Review Of Systems Constitutional: Reports: No symptoms Respiratory: Reports: No symptoms Cardiac: Reports: No symptoms GI: Reports: Abdominal pain, Nausea, Poor appetite : Reports: No symptoms Musculoskeletal: Reports: No symptoms Skin: Reports: No symptoms Neurological: Reports: No symptoms All Other Systems: Reviewed and Negative Past Medical History - Past Medical History Previously Healthy: No Endocrine: Reports: None, Hypothyroid, Dyslipidemia Cardiovascular: Reports: None Respiratory: Reports: None Hematological: Reports: None Gastrointestinal: Reports: GERD, Crohn's, Pancreatitis Genitourinary: Reports: Kidney stones Neuro/Psych: Reports: Depression Musculoskeletal: Reports: None Cancer: Reports: None - Surgical History General Surgical History: Reports: Other (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, INTESTINAL RESECTION) - Family History Family History: Reports: None, Unknown - Social History Smoking Status: Never smoker Hx Substance Use: No Alcohol Screening: None Lives: Alone - Immunizations Tetanus Shot up to Date: Yes Physical Exam - Physical Exam Appearance: Well-appearing, No pain distress, Well-nourished Ill-appearing: None Pain Distress: Moderate Respiratory: Airway patent, Breath sounds clear, Breath sounds equal, Respirations nonlabored Cardiovascular: RRR, Pulses normal, No rub, No murmur GI/: Soft, No masses, Bowel sounds normal, Tender (generalized tenderness) Musculoskeletal: Normal strength, ROM intact, No edema, No calf tenderness Skin: Warm, Dry, Normal color Neurological: Sensation intact, Motor intact, Reflexes intact, Cranial nerves intact, Alert, Oriented Psychiatric: Affect appropriate, Mood appropriate Re-Evaluation - Re-Evaluation Time of Re-Evaluation: 12:16 (Pt offered Toradol IM which he refused because " it doesn't work. Dilaudid does.") Status: Unchanged Vital Signs Stable: Yes Pain Level: 4/10 Appearance: NAD Lungs: Clear Skin: Warm and Dry Neuro: Alert and Oriented X3 CV: RRR Additional Comments: Abd: soft, BS+, mild generalized tenderness. Critical Care Note - Critical Care Note Total Time (mins): 0 Course - Course Hematology/Chemistry: 11/22/16 10:46 11/22/16 10:46 Orders, Labs, Meds: Lab Review 11/22/16 11/22/16 10:46 10:55 WBC 5.96 RBC 3.70 L Hgb 11.6 L Hct 32.2 L MCV 87.0 MCH 31.4 H MCHC 36.0 H RDW Coeff of Svitlana 12.5 Plt Count 177 Immature Gran % (Auto) 0.7 Neut % (Auto) 43.6 Lymph % (Auto) 40.6 Ward % (Auto) 11.4 H Eos % (Auto) 3.5 Baso % (Auto) 0.2 Immature Gran # (Auto) 0.0 Neut # 2.6 Lymph # 2.4 Ward # 0.7 Eos # 0.2 Baso # 0.0 Sodium 138 Potassium 3.4 L Chloride 113 H Carbon Dioxide 20 L Anion Gap 8.4 BUN 6 L Creatinine 0.92 Estimated GFR (MDRD) 95.00 BUN/Creatinine Ratio 6.52 Glucose 104 H Lactic Acid 16.5 Calcium 9.2 Total Bilirubin 0.44 AST 17 ALT 49 Alkaline Phosphatase 92 Total Protein 6.7 Albumin 3.8 Globulin 2.9 Albumin/Globulin Ratio 1.31 Amylase 61 Lipase 30 Urine Color Yellow Urine Clarity Clear Urine pH 6.0 Ur Specific [place] 1.025 Urine Protein Negative Urine Glucose (UA) Negative Urine Ketones Negative Urine Blood Negative Urine Nitrite Negative Urine Bilirubin Negative Urine Urobilinogen 0.2 Ur Leukocyte Esterase Negative Orders Category Date Time Status AMYLASE Stat LAB 11/22/16 10:46 Completed CBC W/ AUTO DIFF Stat LAB 11/22/16 10:46 Completed COMPREHENSIVE METABOLIC PANEL Stat LAB 11/22/16 10:46 Completed LACTIC ACID Stat LAB 11/22/16 10:46 Completed LIPASE Stat LAB 11/22/16 10:46 Completed URINALYSIS C & S IF INDICATED Stat LAB 11/22/16 10:55 Completed Ketorolac Tromethamine [Toradol] MEDS 11/22/16 11:55 Discontinued 60 mg IM ONCE STA Ondansetron [Zofran Odt] MEDS 11/22/16 11:54 Discontinued 4 mg PO ONCE STA Medications Discontinued Medications Generic Name Dose Route Start Last Admin Trade Name Freq PRN Reason Stop Dose Admin Ketorolac Tromethamine 60 mg 11/22/16 11:55 11/22/16 11:58 Toradol IM 11/22/16 11:56 Not Given ONCE STA Ondansetron HCl 4 mg 11/22/16 11:54 11/22/16 12:05 Zofran Odt PO 11/22/16 11:55 4 mg ONCE STA Administration Vital Signs: Temp Pulse Resp BP Pulse Ox 11/22/16 10:15 97.9 F 103 H 20 124/80 94 L Departure - Departure Time of Disposition: 12:31 Disposition: HOME SELF-CARE Discharge Problem: Crohn's disease Instructions: Crohn Disease (ED) Condition: Good Pt referred to PMD for follow-up: Yes (Follow up with CP or GI specialist for further evaluation and treatment) Allergies/Adverse Reactions: Allergies No Known Allergies Allergy (Verified 11/22/16 10:26) Home Medications: Ambulatory Orders Adalimumab [Humira] 40 mg SQ DIRECTED 05/03/16 Ondansetron HCl [Zofran] 4 mg PO PRN PRN 10/03/16 Ondansetron [Zofran Odt] 4 mg PO Q6H PRN #20 tab.rapdis 11/22/16 Tramadol HCl 50 mg PO Q4H #20 tablet 11/22/16
[2016-11-22 10:51] LABS: BASOPHILS % (AUTO) 0.2 % (0.0-3.0); EOSINOPHILS # (AUTO) 0.2 K/ul (0.0-0.7); EOSINOPHILS % (AUTO) 3.5 % (0.0-7.0); HEMATOCRIT 32.2 % (42.0-52.0); HEMOGLOBIN 11.6 g/dl (14.0-18.0); IMMATURE GRANULOCYTE % (AUTO) 0.7 % (0.0-5.0); LYMPHOCYTES # (AUTO) 2.4 K/uL (0.60-3.4); LYMPHOCYTES % (AUTO) 40.6 (10.0-50.0); MEAN CORPUSCULAR HEMOGLOBIN 31.4 pg (27.0-31.0); MONOCYTES # (AUTO) 0.7 K/uL (0.4-2.0); MONOCYTES % (AUTO) 11.4 (0-10); NEUTROPHILS # (AUTO) 2.6 K/ul (2.0-6.9); NEUTROPHILS % (AUTO) 43.6; PLATELET COUNT 177 10^3/uL (140-440); WHITE BLOOD COUNT 5.96 K/ul (4.2-10.2)
[2016-11-22 11:02] LABS: BILIRUBIN,URINE Negative (NEGATIVE); KETONES,URINE Negative (NEGATIVE); LEUKOCYTE ESTERASE ,URINE Negative (NEGATIVE); NITRITE,URINE Negative (NEGATIVE); PROTEIN,URINE Negative (NEGATIVE); URINE, BLOOD Negative (NEGATIVE)
[2016-11-22 11:03] LABS: ADD URINE MICROSCOPIC NO
[2016-11-22 11:11] LABS: ALBUMIN 3.8 g/dL (3.4-5.0); ALBUMIN/GLOBULIN RATIO 1.31; ANION GAP 8.4; BILIRUBIN,TOTAL 0.44 mg/dL (0.00-1.20); BUN/CREATININE RATIO 6.52; CALCIUM 9.2 mg/dL (8.2-10.2); CREATININE 0.92 mg/dL (0.60-1.10); POTASSIUM 3.4 mmol/L (3.5-5.1); TOTAL PROTEIN 6.7 g/dL (6.4-8.2)
[2016-11-22] MEDS ORDERED: ZOFRAN ODT PO STA (11:54)
[2016-11-22] MEDS ORDERED: TORADOL IM STA (11:55)
[2016-11-22] MEDS ORDERED: SOLU-MEDROL 125 MG IM STA (12:27)
== END 2016-11-22 12:42 | disposition home or self-care (01) ==
LOC: ED 10:15
DX: K50.90 Crohn's disease, unspecified, without complications (principal)
CPT/HCPCS: 36415; 80053; 81001; 82150; 83605; 83690; 85025; 96372; 99283

== ENCOUNTER 2016-11-27 14:35 | Emergency (ER) ==
[2016-11-27 14:37] VITALS: BP 125/79; TEMP 97.2; BMI 25.6
[2016-11-27 15:11] LABS: BASOPHILS % (AUTO) 0.4 % (0.0-3.0); EOSINOPHILS # (AUTO) 0.2 K/ul (0.0-0.7); EOSINOPHILS % (AUTO) 2.2 % (0.0-7.0); HEMOGLOBIN 12.2 g/dl (14.0-18.0); IMMATURE GRANULOCYTE % (AUTO) 0.6 % (0.0-5.0); LYMPHOCYTES # (AUTO) 2.8 K/uL (0.60-3.4); MEAN CORPUSCULAR HEMOGLOBIN 31.4 pg (27.0-31.0); MEAN CORPUSCULAR HGB CONC 35.9 (31.8-35.4); MEAN CORPUSCULAR VOLUME 87.4 fl (80.0-94.0); MONOCYTES # (AUTO) 0.6 K/uL (0.4-2.0); MONOCYTES % (AUTO) 8.6 (0-10); NEUTROPHILS # (AUTO) 3.5 K/ul (2.0-6.9); NEUTROPHILS % (AUTO) 49.2; PLATELET COUNT 192 10^3/uL (140-440); RED BLOOD COUNT 3.89 10^6/ul (4.70-6.10); WHITE BLOOD COUNT 7.18 K/ul (4.2-10.2)
--- NOTE | 2016-11-27 15:20 | CT ---
Exam: CT of the abdomen pelvis without intravenous contrast. Comparison: 11/15/2016. 11/03/2016, 09/22/2016, 09/10/2016, and many others dating back to 2012. Reason for exam: Pain. FINDINGS: No pleural effusion, or focal consolidation is seen in the partially imaged lung bases. Image interpretation is limited without intravenous contrast administration The liver, gallbladder, spleen, adrenal glands, and pancreas appear grossly unremarkable within limit ations of a noncontrasted evaluation. The gallbladder appears mildly prominent in size without gallbladder wall thickening. No hydronephrosis or hydroureter is seen in either kidney. There is a similar appearing right renal cyst. With cortical renal hyperdensities. No focal small bowel dilatation or transition point. Operative changes are seen in the right lower quadrant with a similar appearing anastomoses after par tial colectomy. No focal bowel dilatation or evidence of bowel wall thickening. No inflammatory changes are seen within the abdomen or pelvis. No intra-abdominal free air or pelvic free fluid. The bladder is not well distended which limits interpretation. No suspicious appearing osteoblastic or osteolytic lesions. Impression: 1. No acute inflammatory changes are seen within the abdomen or pelvis. 2. Similar appearing operative changes after partial raquel colectomy. 3. Renal cortical hyperdensities may represent small stones or medullary calcinosis. No hydronephro sis or hydroureter. Report faxed at [phone] hours on 11/27/2016.
[2016-11-27 15:27] LABS: ALBUMIN 3.8 g/dL (3.4-5.0); ALBUMIN/GLOBULIN RATIO 1.27; ANION GAP 12.3; BILIRUBIN,TOTAL 1.06 mg/dL (0.00-1.20); BUN/CREATININE RATIO 13.25; CALCIUM 9.2 mg/dL (8.2-10.2); CREATININE 0.83 mg/dL (0.60-1.10); POTASSIUM 3.3 mmol/L (3.5-5.1); TOTAL PROTEIN 6.8 g/dL (6.4-8.2)
--- NOTE | 2016-11-27 15:38 | ED.PDOC ---
General ED Provider: Dr. SHARAN MCHUGH Chief Complaint: Abdominal Pain Stated Complaint: chronic abdominal pain Time Seen by Physician: 14:35 (seen with gemini) Mode of Arrival: Walk-In Information Source: Patient Exam Limitations: No limitations Nursing and Triage Documentation Reviewed and Agree: Yes (no changes in the pattern of pain) GI Complaint Exam - Abdominal Pain Complaint/Exam Onset: Gradual Duration: chronic pain Symptoms Are: Still present Timing: Constant Initial Severity: Moderate Current Severity: Mild Location of Pain: Diffuse Radiates To: Reports: Chest Character: Reports: Dull, Aching Aggravating: Reports: None Alleviating: Reports: None Associated Signs and Symptoms: Denies: Diaphoresis, Fever, Chest pain, Dizziness , Back pain, Constipation, Blood in stool, Dysuria, Urinary frequency, Decreased urine output, Decreased appetite, Discharge, Nausea, Vomiting, Diarrhea, Decreased activity Related History: Reports: Similar episode AAA Risk Factors: Reports: None Cardiac Risk Factors: Reports: None Testicular Torsion Risk Factors: Reports: None Surgical Obstruction Risk Factors: Reports: None Related Surgical History: Reports: None Abdominal Findings: Present: None Quality Indicators for Cardiac Chest Pain: EKG in 10min. Quality Indicator For Non-Traumatic Chest Pain/Syncope: EKG Performed Review of Systems - Review Of Systems Constitutional: Reports: No symptoms Eyes: Reports: No symptoms Ears, Nose, Mouth, Throat: Reports: No symptoms Respiratory: Reports: No symptoms Cardiac: Reports: No symptoms GI: Reports: Abdominal pain : Reports: No symptoms Musculoskeletal: Reports: No symptoms Skin: Reports: No symptoms Neurological: Reports: No symptoms Endocrine: Reports: No symptoms Hematologic/Lymphatic: Reports: No symptoms All Other Systems: Reviewed and Negative Past Medical History - Past Medical History Previously Healthy: No Endocrine: Reports: None, Hypothyroid, Dyslipidemia Cardiovascular: Reports: None Respiratory: Reports: None Hematological: Reports: None Gastrointestinal: Reports: GERD, Crohn's, Pancreatitis Genitourinary: Reports: Kidney stones Neuro/Psych: Reports: Depression Musculoskeletal: Reports: None Cancer: Reports: None - Surgical History General Surgical History: Reports: Other (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, INTESTINAL RESECTION) - Family History Family History: Reports: None, Unknown - Social History Smoking Status: Never smoker Hx Substance Use: No Alcohol Screening: None Physical Exam - Physical Exam Appearance: Well-appearing, No pain distress, Well-nourished Eyes: DISHA, EOMI, Conjunctiva clear ENT: Ears normal, Nose normal, Oropharynx normal Respiratory: Airway patent, Breath sounds clear, Breath sounds equal, Respirations nonlabored Cardiovascular: RRR, Pulses normal, No rub, No murmur GI/: Soft, Nontender, No masses, Bowel sounds normal, No Organomegaly Musculoskeletal: Normal strength, ROM intact, No edema, No calf tenderness Skin: Warm, Dry, Normal color Neurological: Sensation intact, Motor intact, Reflexes intact, Cranial nerves intact, Alert, Oriented Psychiatric: Affect appropriate, Mood appropriate Interpretation - Radiology Interpretation Radiology Interpretation By: Radiologist Radiology Results: No acute changes Critical Care Note - Critical Care Note Total Time (mins): 0 Course - Course Hematology/Chemistry: 11/27/16 14:41 11/27/16 14:41 Orders, Labs, Meds: Lab Review 11/27/16 11/27/16 14:41 14:41 WBC 7.18 RBC 3.89 L Hgb 12.2 L Hct 34.0 L MCV 87.4 MCH 31.4 H MCHC 35.9 H RDW Coeff of Svitlana 12.2 Plt Count 192 Immature Gran % (Auto) 0.6 Neut % (Auto) 49.2 Lymph % (Auto) 39.0 [place] % (Auto) 8.6 Eos % (Auto) 2.2 Baso % (Auto) 0.4 Immature Gran # (Auto) 0.0 Neut # 3.5 Lymph # 2.8 [place] # 0.6 Eos # 0.2 Baso # 0.0 Sodium 140 Potassium 3.3 L Chloride 108 H Carbon Dioxide 23 Anion Gap 12.3 BUN 11 Creatinine 0.83 Estimated GFR (MDRD) 107.00 BUN/Creatinine Ratio 13.25 Glucose 90 Calcium 9.2 Total Bilirubin 1.06 AST 30 ALT 68 Alkaline Phosphatase 88 Total Protein 6.8 Albumin 3.8 Globulin 3.0 Albumin/Globulin Ratio 1.27 Orders Category Date Time Status CBC W/ AUTO DIFF Stat LAB 11/27/16 14:41 Completed COMPREHENSIVE METABOLIC PANEL Stat LAB 11/27/16 14:[address] ABDOMEN/PELVIS WO CONTRAST Stat RADS 11/27/16 14:41 Completed Vital Signs: Temp Pulse Resp BP Pulse Ox 11/27/16 14:35 97.2 F L 98 H 16 125/79 99 Departure - Departure Time of Disposition: 15:38 (d/c with gemini, seen at all times with RN) Disposition: HOME SELF-CARE Discharge Problem: Abdominal pain Instructions: Chronic Abdominal Pain (ED) Condition: Good Pt referred to PMD for follow-up: Yes Additional Instructions: Please call your Family Physician as soon as possible to schedule a follow-up appointment. Allergies/Adverse Reactions: Allergies No Known Allergies Allergy (Verified 11/27/16 14:37) Home Medications: Ambulatory Orders Adalimumab [Humira] 40 mg SQ DIRECTED 05/03/16 Ondansetron HCl [Zofran] 4 mg PO PRN PRN 10/03/16 Multivitamin 1 cap PO DAILY 11/27/16 Prednisone 40 mg PO DAILYWM 11/27/16 Sulfasalazine 500 mg PO TID 11/27/16
== END 2016-11-27 15:50 | disposition home or self-care (01) ==
LOC: ED 14:35
DX: R10.84 Generalized abdominal pain (principal); G89.29 Other chronic pain; Z87.19 Personal history of other diseases of the digestive system
CPT/HCPCS: 36415; 80053; 85025; 99283

== ENCOUNTER 2016-11-28 07:47 | Emergency (ER) ==
[2016-11-28 07:47] VITALS: BMI 25.6
[2016-11-28 07:53] VITALS: BP 124/85; TEMP 97.6
[2016-11-28] MEDS ORDERED: BENTYL IM STA (08:31)
[2016-11-28] MEDS ORDERED: TORADOL IM STA (08:32)
[2016-11-28] MEDS ORDERED: REGLAN PO STA (08:32)
[2016-11-28] MEDS ORDERED: BENTYL PO STA (08:37)
--- NOTE | 2016-11-28 08:37 | ED.PDOC ---
General ED Provider: Dr. URMILA TRAMMELL Chief Complaint: Abdominal Pain Stated Complaint: Patient is a 31 year old male who comes to the ER with chronic abdominal pain. Has been seen several times recenlty including yesterday. Time Seen by Physician: 08:00 Mode of Arrival: Walk-In Information Source: Patient Exam Limitations: No limitations Seen Within Last 72 Hours for Same Complaint By: ED (seen yesterday, had negative labs and CT scan ) Nursing and Triage Documentation Reviewed and Agree: Yes GI Complaint Exam - Abdominal Pain Complaint/Exam Onset: Gradual Duration: chonic ongoing Symptoms Are: Still present Timing: Constant Initial Severity: Moderate Current Severity: Moderate Location of Pain: Diffuse Character: Reports: Aching, Throbbing Aggravating: Reports: None Alleviating: Reports: None Associated Signs and Symptoms: Denies: Diaphoresis, Fever, Cough, Chest pain, Dizziness, Back pain, Constipation, Blood in stool, Dysuria, Urinary frequency, Decreased urine output, Decreased appetite, Discharge, Nausea, Vomiting, Diarrhea, Decreased activity Related History: Denies: Similar episode AAA Risk Factors: Reports: None Cardiac Risk Factors: Reports: None Testicular Torsion Risk Factors: Reports: None Surgical Obstruction Risk Factors: Reports: None Abdominal Findings: Absent: Abdominal distention, Unequal femoral pulses, Rebound tenderness, Peritoneal signs, [place]'s [place] tender, CVA Tenderness Differential Diagnoses: Other (inflamatory bowel disease) Review of Systems - Review Of Systems Constitutional: Reports: No symptoms Eyes: Reports: No symptoms Ears, Nose, Mouth, Throat: Reports: No symptoms Respiratory: Reports: No symptoms Cardiac: Reports: No symptoms GI: Reports: Nausea : Reports: Pain Musculoskeletal: Reports: No symptoms Skin: Reports: No symptoms Neurological: Reports: No symptoms Endocrine: Reports: No symptoms Hematologic/Lymphatic: Reports: No symptoms All Other Systems: Reviewed and Negative Past Medical History - Past Medical History Previously Healthy: No Endocrine: Reports: None, Hypothyroid, Dyslipidemia Cardiovascular: Reports: None Respiratory: Reports: None Hematological: Reports: None Gastrointestinal: Reports: GERD, Crohn's, Pancreatitis Genitourinary: Reports: Kidney stones Neuro/Psych: Reports: Depression Musculoskeletal: Reports: None Cancer: Reports: None - Surgical History General Surgical History: Reports: Other (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, INTESTINAL RESECTION) - Family History Family History: Reports: None, Unknown - Social History Smoking Status: Never smoker Hx Substance Use: No Alcohol Screening: None Physical Exam - Physical Exam Appearance: Ill-appearing Ill-appearing: Moderate Pain Distress: Severe Eyes: DISHA, EOMI, Conjunctiva clear ENT: Ears normal, Nose normal, Oropharynx normal Neck: Supple Respiratory: Airway patent, Breath sounds clear, Breath sounds equal, Respirations nonlabored Cardiovascular: RRR, Pulses normal, No rub, No murmur GI/: Soft, No masses, Bowel sounds normal, No Organomegaly, Tender Musculoskeletal: Normal strength, ROM intact, No edema, No calf tenderness Skin: Warm, Dry, Normal color Neurological: Sensation intact, Motor intact, Cranial nerves intact, Alert, Oriented Psychiatric: Anxious Critical Care Note - Critical Care Note Total Time (mins): 0 Course - Course Orders, Labs, Meds: Orders Category Date Time Status Dicyclomine HCl [Bentyl] MEDS 11/28/16 08:37 Discontinued 20 mg PO ONCE STA Metoclopramide HCl [Reglan] MEDS 11/28/16 08:32 Discontinued 10 mg PO ONCE STA Medications Discontinued Medications Generic Name Dose Route Start Last Admin Trade Name Freq PRN Reason Stop Dose Admin Dicyclomine HCl 20 mg 11/28/16 08:37 11/28/16 08:46 Bentyl PO 11/28/16 08:38 20 mg ONCE STA Administration Metoclopramide HCl 10 mg 11/28/16 08:32 11/28/16 08:46 Reglan PO 11/28/16 08:33 10 mg ONCE STA Administration Vital Signs: Temp Pulse Resp BP Pulse Ox 11/28/16 07:47 97.6 F 103 H 20 124/85 98 Departure - Departure Time of Disposition: 08:52 Disposition: HOME SELF-CARE Discharge Problem: Abdominal pain Crohns disease Qualifiers: Gastrointestinal tract location: unspecified location Digestive disease complication type: without complication Qualified Code(s): K50.90 - Crohn's disease, unspecified, without complications Instructions: Chronic Abdominal Pain (ED) Condition: Fair Pt referred to PMD for follow-up: Yes Additional Instructions: Continue home medications Follow up with PCP in 3 days for chronic pain management and referral. Prescriptions: Dicyclomine HCl [Bentyl] 10 mg PO TID PRN #20 capsule PRN Reason: Abdominal Pain Allergies/Adverse Reactions: Allergies No Known Allergies Allergy (Verified 11/28/16 07:55) Home Medications: Ambulatory Orders Adalimumab [Humira] 40 mg SQ DIRECTED 05/03/16 Ondansetron HCl [Zofran] 4 mg PO PRN PRN 10/03/16 Multivitamin 1 cap PO DAILY 11/27/16 Prednisone 40 mg PO DAILYWM 11/27/16 Sulfasalazine 500 mg PO TID 11/27/16 Dicyclomine HCl [Bentyl] 10 mg PO TID PRN #20 capsule 11/28/16 Disposition Discussed With: Patient
== END 2016-11-28 09:22 | disposition home or self-care (01) ==
LOC: ED 07:47
DX: K50.90 Crohn's disease, unspecified, without complications (principal)
CPT/HCPCS: 99282

== ENCOUNTER 2016-12-09 15:04 | Emergency (ER) ==
[2016-12-09 15:08] VITALS: BP 110/77; TEMP 97.8; BMI 24.6
[2016-12-09 15:41] LABS: HEMOGLOBIN 12.1 g/dl (14.0-18.0); MEAN CORPUSCULAR HEMOGLOBIN 32.5 pg (27.0-31.0); MEAN CORPUSCULAR HGB CONC 36.7 (31.8-35.4); MEAN CORPUSCULAR VOLUME 88.7 fl (80.0-94.0); PLATELET COUNT 193 10^3/uL (140-440); RED BLOOD COUNT 3.72 10^6/ul (4.70-6.10)
[2016-12-09 15:43] LABS: ANISOCYTOSIS NOT PRESENT (NOT PRESENT)
--- NOTE | 2016-12-09 15:54 | CT ---
EXAM: CT abdomen pelvis without contrast HISTORY: Abdominal pain COMPARISON: CT abdomen pelvis 11/27/2016 and multiple priors TECHNIQUE: Serial axial images of the abdomen pelvis were performed from the lung bases through the inferior pelvis without contrast. These were viewed in multiple planes. FINDINGS: Lung bases are clear. Evaluation is limited due to lack of contrast. The liver is normal. Gallbladder is nondistended. T he adrenal glands are normal. There is a round hyperdensity in the central mid pole of the left kidn ey unchanged since prior exam. Spleen is normal. Pancreas is normal. The stomach is large and dist ended. The small bowel in the abdomen pelvis is unremarkable. The colon is unremarkable. There is surgical changes in the anterior right upper abdomen. There is no evidence of obstruction. Urinary bladder is mildly distended. Prostate is normal. There is no free air or free fluid. There are scattered n onpathologically enlarged lymph nodes. The osseous structures are unchanged. IMPRESSION: 1. No acute intra-abdominal or pelvic process. 2. Unchanged renal hyperdensities likely representing hemorrhagic cyst. 3. Surgical changes of the bowel with no evidence of obstruction.
[2016-12-09 16:04] LABS: ALBUMIN 3.7 g/dL (3.4-5.0); ALBUMIN/GLOBULIN RATIO 1.16; ANION GAP 16.5; BILIRUBIN,TOTAL 0.3 mg/dL (0.00-1.20); BUN/CREATININE RATIO 13.18; CALCIUM 9.3 mg/dL (8.2-10.2); CREATININE 0.91 mg/dL (0.60-1.10); POTASSIUM 3.5 mmol/L (3.5-5.1); TOTAL PROTEIN 6.9 g/dL (6.4-8.2)
--- NOTE | 2016-12-09 16:08 | ED.PDOC ---
General ED Provider: Dr. SHARAN MCHUGH Chief Complaint: Abdominal Pain Stated Complaint: abdominal pain Time Seen by Physician: 15:04 (chronic pain issue seen with trisha ) Mode of Arrival: Walk-In Information Source: Patient Exam Limitations: No limitations Nursing and Triage Documentation Reviewed and Agree: Yes GI Complaint Exam - Abdominal Pain Complaint/Exam Onset: Gradual Duration: chronic Timing: Intermittent Initial Severity: Severe Current Severity: None Location of Pain: Diffuse Character: Reports: Dull, Cramping Aggravating: Reports: None Alleviating: Reports: None Associated Signs and Symptoms: Denies: Diaphoresis, Fever, Cough, Chest pain, Dizziness, Back pain, Constipation, Blood in stool, Dysuria, Urinary frequency, Decreased urine output, Decreased appetite, Discharge, Nausea, Vomiting, Diarrhea, Decreased activity Related History: Reports: Similar episode AAA Risk Factors: Reports: None Cardiac Risk Factors: Reports: None Testicular Torsion Risk Factors: Reports: None Surgical Obstruction Risk Factors: Reports: None Related Surgical History: Reports: None Abdominal Findings: Present: Rebound tenderness Differential Diagnoses: Appendicitis, Bowel Obstruction, Constipation, Gastroenteritis, Pancreatitis Review of Systems - Review Of Systems Constitutional: Reports: No symptoms Eyes: Reports: No symptoms Ears, Nose, Mouth, Throat: Reports: No symptoms Respiratory: Reports: No symptoms Cardiac: Reports: No symptoms GI: Reports: Abdominal pain : Reports: No symptoms Musculoskeletal: Reports: No symptoms Skin: Reports: No symptoms Neurological: Reports: No symptoms Endocrine: Reports: No symptoms Hematologic/Lymphatic: Reports: No symptoms All Other Systems: Reviewed and Negative Past Medical History - Past Medical History Previously Healthy: No Endocrine: Reports: None, Hypothyroid, Dyslipidemia Cardiovascular: Reports: None Respiratory: Reports: None Hematological: Reports: None Gastrointestinal: Reports: GERD, Crohn's, Pancreatitis Genitourinary: Reports: Kidney stones Neuro/Psych: Reports: Depression Musculoskeletal: Reports: None Cancer: Reports: None - Surgical History General Surgical History: Reports: Other (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, INTESTINAL RESECTION) - Family History Family History: Reports: None, Unknown - Social History Smoking Status: Never smoker Hx Substance Use: No Alcohol Screening: None Physical Exam - Physical Exam Appearance: Well-appearing, No pain distress, Well-nourished Eyes: DISHA, EOMI, Conjunctiva clear ENT: Ears normal, Nose normal, Oropharynx normal Respiratory: Airway patent, Breath sounds clear, Breath sounds equal, Respirations nonlabored Cardiovascular: RRR, Pulses normal, No rub, No murmur GI/: Soft, Nontender, No masses, Bowel sounds normal, No Organomegaly Musculoskeletal: Normal strength, ROM intact, No edema, No calf tenderness Skin: Warm, Dry, Normal color Neurological: Sensation intact, Motor intact, Reflexes intact, Cranial nerves intact, Alert, Oriented Psychiatric: Affect appropriate, Mood appropriate Interpretation - Radiology Interpretation Radiology Interpretation By: Radiologist Radiology Results: No acute changes Critical Care Note - Critical Care Note Total Time (mins): 0 Course - Course Hematology/Chemistry: 12/09/16 15:38 12/09/16 15:35 Orders, Labs, Meds: Lab Review 12/09/16 12/09/16 15:35 15:38 WBC 8.10 RBC 3.72 L Hgb 12.1 L Hct 33.0 L MCV 88.7 MCH 32.5 H MCHC 36.7 H RDW Coeff of Svitlana 12.6 Plt Count 193 Neutrophils % (Manual) Pending Anisocytosis Pending Sodium 140 Potassium 3.5 Chloride 103 Carbon Dioxide 24 Anion Gap 16.5 BUN 12 Creatinine 0.91 Estimated GFR (MDRD) 96.00 BUN/Creatinine Ratio 13.18 Glucose 119 H Calcium 9.3 Total Bilirubin 0.30 AST 21 ALT 41 Alkaline Phosphatase 87 Total Protein 6.9 Albumin 3.7 Globulin 3.2 Albumin/Globulin Ratio 1.16 Amylase 43 Lipase 27 Orders Category Date Time Status AMYLASE Stat LAB 12/09/16 15:35 Completed CBC W/ AUTO DIFF Stat LAB 12/09/16 15:38 Results COMPREHENSIVE METABOLIC PANEL Stat LAB 12/09/16 15:35 Completed LIPASE Stat LAB 12/09/16 15:35 Completed MANUAL DIFFERENTIAL Stat LAB 12/09/16 15:[address] ABDOMEN/PELVIS WO CONTRAST Stat RADS 12/09/16 15:22 Completed Vital Signs: Temp Pulse Resp BP Pulse Ox 12/09/16 15:04 97.8 F 120 H 16 110/77 98 Departure - Departure Time of Disposition: 16:07 Disposition: HOME SELF-CARE Discharge Problem: Abdominal pain Instructions: Abdominal Pain (ED) Condition: Good Pt referred to PMD for follow-up: Yes Additional Instructions: Please call your Family Physician as soon as possible to schedule a follow-up appointment. Allergies/Adverse Reactions: Allergies No Known Allergies Allergy (Verified 12/09/16 15:09) Home Medications: Ambulatory Orders Adalimumab [Humira] 40 mg SQ DIRECTED 05/03/16 Ondansetron HCl [Zofran] 4 mg PO PRN PRN 10/03/16 Multivitamin 1 cap PO DAILY 11/27/16 Sulfasalazine 500 mg PO TID 11/27/16 Dicyclomine HCl [Bentyl] 10 mg PO TID PRN #20 capsule 11/28/16 Hydrocodone Bit/Acetaminophen [[place] 10-325] 1 each PO Q4-6H PRN 12/09/16 Metronidazole [Flagyl] 500 mg PO BID 12/09/16 Disposition Discussed With: Patient
== END 2016-12-09 16:18 | disposition home or self-care (01) ==
LOC: ED 15:04
DX: R10.84 Generalized abdominal pain (principal); G89.29 Other chronic pain; Z87.19 Personal history of other diseases of the digestive system
CPT/HCPCS: 36415; 80053; 82150; 83690; 85007; 85025; 99282

== ENCOUNTER 2016-12-13 15:17 | Emergency (ER) ==
[2016-12-13 15:17] VITALS: BMI 24.6
[2016-12-13 15:21] VITALS: BP 128/80; TEMP 97.6
--- NOTE | 2016-12-13 15:36 | ED.PDOC ---
General ED Provider: Dr. TRANG VARELA Chief Complaint: Abdominal Pain Stated Complaint: Patient c/o central abdominal pain with nausea, vomiting, & watery diarrhea x 2 day. States hospitalized last week at another hospital for an ileus. PMH of crohns dz with frquent flare ups. Same symptoms. Note: pt's mother is here and spoke with me separately. She states he has been sleeping all day and in no pain. She thinks he is drug-seeking and asks me to no precribe any narcotic pain meds. Time Seen by Physician: 15:38 Mode of Arrival: Walk-In Information Source: Patient Exam Limitations: No limitations Nursing and Triage Documentation Reviewed and Agree: Yes GI Complaint Exam - Abdominal Pain Complaint/Exam Onset: Sudden Duration: 2 days Symptoms Are: Still present Timing: Constant Initial Severity: Moderate Current Severity: Severe Location of Pain: Diffuse (mainly central abdomen) Character: Reports: Aching, Throbbing Aggravating: Reports: Movement, Food, Position Alleviating: Reports: None Associated Signs and Symptoms: Reports: Nausea, Vomiting (3x in 24 hrs), Diarrhea (TNTC) Related History: Reports: Similar episode (crohn's dz flare ups) AAA Risk Factors: Reports: None Cardiac Risk Factors: Reports: None Testicular Torsion Risk Factors: Reports: None Surgical Obstruction Risk Factors: Reports: None Related Surgical History: Reports: None Abdominal Findings: Present: None (except for mid abominal tenderness to palpation. No guarding or rebound. BS+ and active.). Absent: Pulsatile mass, Abdominal distention, Unequal femoral pulses, Rebound tenderness, Peritoneal signs, [place] tender, CVA Tenderness, Hernia, Inguinal swelling Differential Diagnoses: Bowel Obstruction, Gastroenteritis, Pancreatitis, Other (drug-seeking behavior) Review of Systems - Review Of Systems Constitutional: Reports: No symptoms Eyes: Reports: No symptoms Ears, Nose, Mouth, Throat: Reports: No symptoms Respiratory: Reports: No symptoms Cardiac: Reports: No symptoms GI: Reports: Abdominal pain, Diarrhea, Nausea, Vomiting : Reports: No symptoms Skin: Reports: No symptoms Neurological: Reports: No symptoms All Other Systems: Reviewed and Negative Past Medical History - Past Medical History Previously Healthy: No Endocrine: Reports: None, Hypothyroid, Dyslipidemia Cardiovascular: Reports: None Respiratory: Reports: None Hematological: Reports: None Gastrointestinal: Reports: GERD, Crohn's, Pancreatitis Genitourinary: Reports: Kidney stones Neuro/Psych: Reports: Depression Musculoskeletal: Reports: None Cancer: Reports: None - Surgical History General Surgical History: Reports: Other (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, INTESTINAL RESECTION) - Family History Family History: Reports: None, Unknown - Social History Smoking Status: Never smoker Hx Substance Use: No Alcohol Screening: None Lives: With family - Immunizations Tetanus Shot up to Date: Yes Influenza Vaccine within 12 Months: Yes Pneumococcal Vaccine up to Date: Yes Physical Exam - Physical Exam Appearance: Well-appearing, Well-nourished Ill-appearing: None Pain Distress: Moderate Eyes: DISHA, EOMI, Conjunctiva clear ENT: Ears normal, Nose normal, Oropharynx normal Neck: Supple Respiratory: Airway patent, Breath sounds clear, Breath sounds equal, Respirations nonlabored Cardiovascular: RRR, Pulses normal, No rub, No murmur GI/: Soft, No masses, Bowel sounds normal, No Organomegaly, Tender (tender to palpation in mid-abdominal region. No rebound or guarding. BS+ and active,) Musculoskeletal: Normal strength, ROM intact, No edema, No calf tenderness Skin: Warm, Dry, Normal color Neurological: Sensation intact, Motor intact, Reflexes intact, Cranial nerves intact, Alert, Oriented Psychiatric: Affect appropriate, Mood appropriate Re-Evaluation - Re-Evaluation Time of Re-Evaluation: 16:05 (Pt told nurse he had thoughts of killing himself. Did not mention this to me. When told unlikely to get narcotics, stated if we discharge him, he will kill himself. Mental health notified.) Status: Unchanged Vital Signs Stable: Yes Pain Level: Appears in NAD. Indicates "terrible" pain 10/22 Appearance: NAD Lungs: Clear Skin: Warm and Dry Neuro: Alert and Oriented X3 CV: RRR - Re-Evaluation Time of Re-Evaluation: 16:46 Status: Unchanged Vital Signs Stable: Yes Pain Level: Same Appearance: NAD Skin: Warm and Dry Neuro: Alert and Oriented X3 CV: RRR Additional Comments: States Toradol "never works" and has requested morphine repeatedly Physician Notification - Case Discussed Physician Notified: Mental health associate Time of Notification: 17:20 (evaluated patient and found no indications for hospitalization.) Critical Care Note - Critical Care Note Total Time (mins): 0 Course - Course Hematology/Chemistry: 12/13/16 15:50 12/13/16 15:50 Orders, Labs, Meds: Lab Review 12/13/16 12/13/16 12/13/16 15:50 15:50 15:50 WBC 6.73 RBC 4.05 L Hgb 12.8 L Hct 35.9 L MCV 88.6 MCH 31.6 H MCHC 35.7 H RDW Coeff of Svitlana 12.2 Plt Count 187 Immature Gran % (Auto) 0.7 Neut % (Auto) 57.7 Lymph % (Auto) 25.1 [place] % (Auto) 13.7 H Eos % (Auto) 2.7 Baso % (Auto) 0.1 Immature Gran # (Auto) 0.1 Neut # 3.9 Lymph # 1.7 [place] # 0.9 Eos # 0.2 Baso # 0.0 Sodium 138 Potassium 4.4 Chloride 104 Carbon Dioxide 23 Anion Gap 15.4 BUN 9 Creatinine 0.83 Estimated GFR (MDRD) 107.00 BUN/Creatinine Ratio 10.84 Glucose 101 H Calcium 9.9 Total Bilirubin 0.32 AST 19 ALT 44 Alkaline Phosphatase 75 Total Protein 7.6 Albumin 3.9 Globulin 3.7 Albumin/Globulin Ratio 1.05 Amylase 65 Lipase 29 Procalcitonin < 0.05 Orders Category Date Time Status AMYLASE Stat LAB 12/13/16 15:50 Completed CBC W/ AUTO DIFF Stat LAB 12/13/16 15:50 Completed COMPREHENSIVE METABOLIC PANEL Stat LAB 12/13/16 15:50 Completed LIPASE Stat LAB 12/13/16 15:50 Completed PROCALCITONIN Stat LAB 12/13/16 15:50 Completed URINALYSIS C & S IF INDICATED Stat LAB 12/13/16 15:45 Uncollected URINE DRUG SCREEN (RAPID FOR ED) [DRUG SCREEN, URINE, LAB 12/13/16 17:10 Uncollected RAPID] Stat Ketorolac Tromethamine [Toradol] MEDS 12/13/16 15:47 Discontinued 30 mg IVP ONCE STA Ondansetron HCl/Pf [Zofran 4 mg/2 ml] MEDS 12/13/16 16:06 Discontinued 4 mg IVP ONCE STA Sodium Chloride 0.9% [Sodium Chloride] 1,000 ml MEDS 12/13/16 15:46 Discontinued IV BOLUS Medications Discontinued Medications Generic Name Dose Route Start Last Admin Trade Name Freq PRN Reason Stop Dose Admin Sodium Chloride 1,000 mls @ 1,000 mls/hr 12/13/16 15:46 12/13/16 16:05 Sodium Chloride IV 12/13/16 16:45 1,000 mls/hr BOLUS STA Administration Ketorolac Tromethamine 30 mg 12/13/16 15:47 12/13/16 16:05 Toradol IVP 12/13/16 15:48 30 mg ONCE STA Administration Ondansetron HCl 4 mg 12/13/16 16:06 12/13/16 16:08 Zofran 4 Mg/2 Ml IVP 12/13/16 16:07 4 mg ONCE STA Administration Vital Signs: Temp Pulse Resp BP Pulse Ox 12/13/16 15:17 97.6 F 114 H 20 128/80 97 Departure - Departure Time of Disposition: 18:10 Disposition: HOME SELF-CARE Discharge Problem: Crohns disease, Drug-seeking behavior Instructions: Crohn Disease (ED) Condition: Good Pt referred to PMD for follow-up: Yes (this week) Allergies/Adverse Reactions: Allergies No Known Allergies Allergy (Verified 12/13/16 15:21) Home Medications: Ambulatory Orders Adalimumab [Humira] 40 mg SQ DIRECTED 05/03/16 Ondansetron HCl [Zofran] 4 mg PO PRN PRN 10/03/16 Multivitamin 1 cap PO DAILY 11/27/16 Sulfasalazine 500 mg PO TID 11/27/16 Dicyclomine HCl [Bentyl] 10 mg PO TID PRN #20 capsule 11/28/16 Hydrocodone Bit/Acetaminophen [[place] 10-325] 1 each PO Q4-6H PRN 12/09/16 Metronidazole [Flagyl] 500 mg PO BID 12/09/16 Disposition Discussed With: Patient
[2016-12-13] MEDS ORDERED: SODIUM CHLORIDE 1,000 ML IV STA (15:46)
[2016-12-13] MEDS ORDERED: ZOFRAN 4 MG/2 ML IM STA (15:47)
[2016-12-13] MEDS ORDERED: TORADOL IVP STA (15:47)
[2016-12-13 15:58] LABS: BASOPHILS % (AUTO) 0.1 % (0.0-3.0); EOSINOPHILS # (AUTO) 0.2 K/ul (0.0-0.7); EOSINOPHILS % (AUTO) 2.7 % (0.0-7.0); HEMATOCRIT 35.9 % (42.0-52.0); HEMOGLOBIN 12.8 g/dl (14.0-18.0); IMMATURE GRANULOCYTE % (AUTO) 0.7 % (0.0-5.0); LYMPHOCYTES # (AUTO) 1.7 K/uL (0.60-3.4); LYMPHOCYTES % (AUTO) 25.1 (10.0-50.0); MEAN CORPUSCULAR HEMOGLOBIN 31.6 pg (27.0-31.0); MEAN CORPUSCULAR HGB CONC 35.7 (31.8-35.4); MEAN CORPUSCULAR VOLUME 88.6 fl (80.0-94.0); MONOCYTES # (AUTO) 0.9 K/uL (0.4-2.0); MONOCYTES % (AUTO) 13.7 (0-10); NEUTROPHILS # (AUTO) 3.9 K/ul (2.0-6.9); NEUTROPHILS % (AUTO) 57.7; PLATELET COUNT 187 10^3/uL (140-440); RED BLOOD COUNT 4.05 10^6/ul (4.70-6.10); WHITE BLOOD COUNT 6.73 K/ul (4.2-10.2)
[2016-12-13] MEDS ORDERED: ZOFRAN 4 MG/2 ML IVP STA (16:06)
[2016-12-13 16:15] LABS: ALBUMIN 3.9 g/dL (3.4-5.0); ALBUMIN/GLOBULIN RATIO 1.05; ANION GAP 15.4; BILIRUBIN,TOTAL 0.32 mg/dL (0.00-1.20); BUN/CREATININE RATIO 10.84; CALCIUM 9.9 mg/dL (8.2-10.2); CREATININE 0.83 mg/dL (0.60-1.10); POTASSIUM 4.4 mmol/L (3.5-5.1); TOTAL PROTEIN 7.6 g/dL (6.4-8.2)
== END 2016-12-13 18:16 | disposition home or self-care (01) ==
LOC: ED 15:17
DX: K50.90 Crohn's disease, unspecified, without complications (principal); Z76.5 Malingerer [conscious simulation]
CPT/HCPCS: 36415; 80053; 82150; 83690; 84145; 85025; 96361; 96374; 96375; 99283

== ENCOUNTER 2016-12-21 09:27 | Outpatient (CLI) ==
--- NOTE | 2016-12-21 11:25 | NM ---
EXAM: Hepatobiliary scan HISTORY: The abdominal pain. Crohn disease. COMPARISON: None of this type. CT 12/09/2016. PROCEDURE: The patient was injected with 4.7 mCi of 99mTc mebrofenin intravenously. Images of the ab domen were obtained at 5 min intervals for 30 minutes. Additional images were obtained 45 and 60 min utes. The patient was then given 8 ounces of Boost after which images of the gallbladder were obtaine d to assess gallbladder contraction. FINDINGS: Sequential images demonstrate normal uptake of tracer into the liver. Activity is seen in the intrahepatic biliary ducts at about 5 minutes. The activity appears in the gallbladder at about 10 minutes. Subsequent images demonstrate increasing activity in the gallbladder. Activity first ap pears in the small bowel at 10 minutes. The gallbladder ejection fraction is 76% . IMPRESSION: 1.Normal hepatobiliary scan. 2.The gallbladder ejection fraction is 76% (normal).
== END 2016-12-21 09:28 | disposition home or self-care (01) ==
LOC: RAD 09:27
PROVIDERS: ATTEND Surgery
DX: K50.90 Crohn's disease, unspecified, without complications (principal)

== ENCOUNTER 2017-01-03 10:47 | Emergency (ER) ==
[2017-01-03 10:48] VITALS: BMI 24.6
[2017-01-03 10:50] VITALS: BP 124/81; TEMP 98
--- NOTE | 2017-01-03 11:34 | ED.PDOC ---
General ED Provider: Dr. TRANG VARELA Chief Complaint: Abdominal Pain Stated Complaint: Patient reports abd pain, generalized but greatest in RLQ since yesterday. N/V x 4 in past 24 hours. Watery stools x 2 in past 24 hrs. Pt states he was hospitalized last week in [place], [place] with abd pain secondary to an ileus. Pt has a PMH of Crohn's dz with MANY ED visits here, all of which had negative workups. The negative workups & patient's almost constant requests for narcotic pain medication have brought up the suspicion of drug-seeking behavior. Time Seen by Physician: 11:30 Mode of Arrival: Walk-In Information Source: Patient Exam Limitations: No limitations Nursing and Triage Documentation Reviewed and Agree: Yes GI Complaint Exam - Abdominal Pain Complaint/Exam Onset: Sudden Duration: yesterday evening Symptoms Are: Still present Timing: Constant Initial Severity: Moderate Current Severity: Severe Location of Pain: Diffuse, RLQ Character: Reports: Sharp (occasional sharp pain), Aching, Throbbing, Cramping Aggravating: Reports: Movement Alleviating: Reports: None Associated Signs and Symptoms: Reports: Nausea, Vomiting, Diarrhea Related History: Reports: Similar episode (crohn's flare ups, ileuses) AAA Risk Factors: Reports: None Cardiac Risk Factors: Reports: None Testicular Torsion Risk Factors: Reports: None Surgical Obstruction Risk Factors: Reports: Colicky abdominal pain, Prior abdominal surgery Related Surgical History: Reports: Appendectomy (with partial colectomy) Abdominal Findings: Present: None (except severe tenderness to palpation in RLQ and moderate generalized tenderness in rest of abdomen. No CVA tenderness. No guarding or rebound.). Absent: Rebound tenderness, Peritoneal signs Differential Diagnoses: Bowel Obstruction, Constipation, Diverticulitis, Gastroenteritis, Other (crohn's disease flare up, drug-seeking behavior) Review of Systems - Review Of Systems Constitutional: Reports: Malaise Eyes: Reports: No symptoms Ears, Nose, Mouth, Throat: Reports: No symptoms Respiratory: Reports: No symptoms Cardiac: Reports: No symptoms GI: Reports: Abdominal pain, Diarrhea, Nausea, Vomiting : Reports: No symptoms Musculoskeletal: Reports: No symptoms Skin: Reports: No symptoms Neurological: Reports: No symptoms All Other Systems: Reviewed and Negative Past Medical History - Past Medical History Previously Healthy: Yes Endocrine: Reports: Hypothyroid, Dyslipidemia Cardiovascular: Reports: None Respiratory: Reports: None Hematological: Reports: None Gastrointestinal: Reports: GERD, Crohn's, Pancreatitis Genitourinary: Reports: Kidney stones Neuro/Psych: Reports: Depression Musculoskeletal: Reports: None Cancer: Reports: None - Surgical History General Surgical History: Reports: Other (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, INTESTINAL RESECTION) - Family History Family History: Reports: Unknown - Social History Smoking Status: Never smoker Hx Substance Use: No Alcohol Screening: None Lives: Alone - Immunizations Tetanus Shot up to Date: No Influenza Vaccine within 12 Months: Yes Pneumococcal Vaccine up to Date: Yes Physical Exam - Physical Exam Appearance: Well-appearing, Well-nourished Ill-appearing: None Pain Distress: Moderate (varies, when I am in room, moderate to severe. When I' m outisde of room, before he's aware of me, mild to none.) Eyes: DISHA, EOMI, Conjunctiva clear ENT: Ears normal, Nose normal, Oropharynx normal Neck: Supple Respiratory: Airway patent, Breath sounds clear, Breath sounds equal, Respirations nonlabored Cardiovascular: RRR, Pulses normal, No rub, No murmur GI/: Soft, No masses, Bowel sounds normal, No Organomegaly, Tender ( generalized moderate tenderness to palpation, greater in upper abdomen) Musculoskeletal: Normal strength, ROM intact, No edema, No calf tenderness Skin: Warm, Dry, Normal color Neurological: Sensation intact, Motor intact, Reflexes intact, Cranial nerves intact, Alert, Oriented Psychiatric: Affect appropriate, Mood appropriate Critical Care Note - Critical Care Note Total Time (mins): 0 Course - Course Hematology/Chemistry: 01/03/17 11:52 01/03/17 11:52 Orders, Labs, Meds: Lab Review 01/03/17 01/03/17 01/03/17 11:52 11:52 11:52 WBC 6.31 RBC 3.81 L Hgb 12.0 L Hct 33.1 L MCV 86.9 MCH 31.5 H MCHC 36.3 H RDW Coeff of Svitlana 12.8 Plt Count 193 Immature Gran % (Auto) 0.6 Neut % (Auto) 50.7 Lymph % (Auto) 36.3 [place] % (Auto) 8.6 Eos % (Auto) 3.6 Baso % (Auto) 0.2 Immature Gran # (Auto) 0.0 Neut # 3.2 Lymph # 2.3 [place] # 0.5 Eos # 0.2 Baso # 0.0 Sodium 139 Potassium 3.7 Chloride 110 H Carbon Dioxide 19 L Anion Gap 13.7 BUN 18 Creatinine 0.92 Estimated GFR (MDRD) 95.00 BUN/Creatinine Ratio 19.56 Glucose 90 Lactic Acid 5.9 Calcium 9.0 Total Bilirubin 0.46 AST 16 ALT 23 Alkaline Phosphatase 73 Total Protein 7.0 Albumin 4.2 Globulin 2.8 Albumin/Globulin Ratio 1.50 Amylase 65 Lipase 24 Orders Category Date Time Status AMYLASE Stat LAB 01/03/17 11:52 Completed CBC W/ AUTO DIFF Stat LAB 01/03/17 11:52 Completed COMPREHENSIVE METABOLIC PANEL Stat LAB 01/03/17 11:52 Completed LACTIC ACID Stat LAB 01/03/17 11:52 Completed LIPASE Stat LAB 01/03/17 11:52 Completed URINALYSIS C & S IF INDICATED Stat LAB 01/03/17 11:43 Uncollected Ketorolac Tromethamine [Toradol] MEDS 01/03/17 12:58 Stat 60 mg IM ONCE STA Medications Generic Name Dose Route Start Last Admin Trade Name Freq PRN Reason Stop Dose Admin Ketorolac Tromethamine 60 mg 01/03/17 12:58 Toradol IM 01/03/17 12:59 ONCE STA Vital Signs: Temp Pulse Resp BP Pulse Ox 01/03/17 10:48 98.0 F 103 H 20 124/81 98 Departure - Departure Time of Disposition: 13:02 Disposition: HOME SELF-CARE Discharge Problem: Chronic generalized abdominal pain Instructions: Chronic Abdominal Pain (ED) Condition: Good Pt referred to PMD for follow-up: No (If symptoms persist, see own doctor ILENE) Allergies/Adverse Reactions: Allergies No Known Allergies Allergy (Verified 01/03/17 10:51) Home Medications: Ambulatory Orders Adalimumab [Humira] 40 mg SQ DIRECTED 05/03/16 Ondansetron HCl [Zofran] 4 mg PO PRN PRN 10/03/16 Multivitamin 1 cap PO DAILY 11/27/16 Sulfasalazine 500 mg PO TID 11/27/16 Ciprofloxacin HCl [Cipro] 500 mg PO DAILY 01/03/17 Tramadol HCl 50 mg PO QID PRN #20 tablet 01/03/17 Disposition Discussed With: Patient
[2017-01-03 11:58] LABS: BASOPHILS % (AUTO) 0.2 % (0.0-3.0); EOSINOPHILS # (AUTO) 0.2 K/ul (0.0-0.7); EOSINOPHILS % (AUTO) 3.6 % (0.0-7.0); HEMATOCRIT 33.1 % (42.0-52.0); IMMATURE GRANULOCYTE % (AUTO) 0.6 % (0.0-5.0); LYMPHOCYTES # (AUTO) 2.3 K/uL (0.60-3.4); LYMPHOCYTES % (AUTO) 36.3 (10.0-50.0); MEAN CORPUSCULAR HEMOGLOBIN 31.5 pg (27.0-31.0); MEAN CORPUSCULAR HGB CONC 36.3 (31.8-35.4); MEAN CORPUSCULAR VOLUME 86.9 fl (80.0-94.0); MONOCYTES # (AUTO) 0.5 K/uL (0.4-2.0); MONOCYTES % (AUTO) 8.6 (0-10); NEUTROPHILS # (AUTO) 3.2 K/ul (2.0-6.9); NEUTROPHILS % (AUTO) 50.7; PLATELET COUNT 193 10^3/uL (140-440); RED BLOOD COUNT 3.81 10^6/ul (4.70-6.10); WHITE BLOOD COUNT 6.31 K/ul (4.2-10.2)
[2017-01-03 12:19] LABS: ALBUMIN 4.2 g/dL (3.4-5.0); ALBUMIN/GLOBULIN RATIO 1.5; ANION GAP 13.7; BILIRUBIN,TOTAL 0.46 mg/dL (0.00-1.20); BUN/CREATININE RATIO 19.56; CREATININE 0.92 mg/dL (0.60-1.10); POTASSIUM 3.7 mmol/L (3.5-5.1)
[2017-01-03] MEDS ORDERED: TORADOL IM STA (12:58)
== END 2017-01-03 13:28 | disposition home or self-care (01) ==
LOC: ED 10:47
DX: R10.84 Generalized abdominal pain (principal); G89.29 Other chronic pain; R11.2 Nausea with vomiting, unspecified; R19.7 Diarrhea, unspecified; K50.90 Crohn's disease, unspecified, without complications; Z87.19 Personal history of other diseases of the digestive system
CPT/HCPCS: 36415; 80053; 82150; 83605; 83690; 85025; 96372; 99284

== ENCOUNTER 2017-01-10 08:26 | Emergency (ER) ==
[2017-01-10 08:26] VITALS: BMI 24.6
[2017-01-10] MEDS ORDERED: SODIUM CHLORIDE 1,000 ML IV STA (08:28)
[2017-01-10] MEDS ORDERED: ZOFRAN 4 MG/2 ML IVP STA (08:29)
[2017-01-10 08:30] VITALS: BP 120/71; TEMP 98.3
[2017-01-10] MEDS ORDERED: DEMEROL 50 MG/ML SYRINGE IVP STA (08:30)
[2017-01-10 09:01] LABS: BASOPHILS % (AUTO) 0.3 % (0.0-3.0); EOSINOPHILS # (AUTO) 0.1 K/ul (0.0-0.7); EOSINOPHILS % (AUTO) 1.9 % (0.0-7.0); HEMATOCRIT 35.1 % (42.0-52.0); HEMOGLOBIN 12.1 g/dl (14.0-18.0); IMMATURE GRANULOCYTE % (AUTO) 0.5 % (0.0-5.0); LYMPHOCYTES % (AUTO) 32.2 (10.0-50.0); MEAN CORPUSCULAR HEMOGLOBIN 31.2 pg (27.0-31.0); MEAN CORPUSCULAR HGB CONC 34.5 (31.8-35.4); MEAN CORPUSCULAR VOLUME 90.5 fl (80.0-94.0); MONOCYTES # (AUTO) 0.8 K/uL (0.4-2.0); MONOCYTES % (AUTO) 12.2 (0-10); NEUTROPHILS # (AUTO) 3.3 K/ul (2.0-6.9); NEUTROPHILS % (AUTO) 52.9; PLATELET COUNT 172 10^3/uL (140-440); RED BLOOD COUNT 3.88 10^6/ul (4.70-6.10)
[2017-01-10 09:27] LABS: ALANINE AMINOTRANSFERASE 23 U/L (12-78); ALBUMIN 3.9 g/dL (3.4-5.0); ALBUMIN/GLOBULIN RATIO 1.34; ALKALINE PHOSPHATASE 78 U/L (50-136); AMYLASE 77 U/L (25-115); ANION GAP 10.7; ASPARTATE AMINO TRANSFERASE 14 U/L (15-37); BILIRUBIN,TOTAL 0.46 mg/dL (0.00-1.20); BLOOD UREA NITROGEN 10 mg/dL (7-18); BUN/CREATININE RATIO 12.19; CALCIUM 9.4 mg/dL (8.2-10.2); CARBON DIOXIDE 23 mmol/L (21-32); CHLORIDE 110 mmol/L (98-107); CREATINE KINASE 103 U/L; CREATININE 0.82 mg/dL (0.60-1.10); GLUCOSE 98 mg/dL (70-100); LIPASE 42 U/L (8-78); POTASSIUM 3.7 mmol/L (3.5-5.1); SODIUM 140 mmol/L (136-145); TOTAL PROTEIN 6.8 g/dL (6.4-8.2)
[2017-01-10 09:40] LABS: ERYTHROCYTE SEDIMENTATION RATE 8 mm/hr (0-15); ESR INTERNAL QC INTERNAL QC VALID
[2017-01-10 10:26] LABS: ADD URINE MICROSCOPIC YES; BILIRUBIN,URINE Negative (NEGATIVE); KETONES,URINE Negative (NEGATIVE); LEUKOCYTE ESTERASE ,URINE Negative (NEGATIVE); NITRITE,URINE Negative (NEGATIVE); PH,URINE 5.5 (5-9); PROTEIN,URINE Negative (NEGATIVE); URINE, BLOOD 3+ (NEGATIVE)
[2017-01-10 10:32] LABS: BACTERIA,URINE TRACE (NOT PRESENT)
--- NOTE | 2017-01-10 11:00 | ED.PDOC ---
General ED Provider: Dr. JULEE GONZALEZ-ER Chief Complaint: Abdominal Pain Stated Complaint: im hurting and im nauseated Time Seen by Physician: 08:30 Mode of Arrival: Walk-In Information Source: Patient Exam Limitations: No limitations Nursing and Triage Documentation Reviewed and Agree: Yes GI Complaint Exam - Abdominal Pain Complaint/Exam Onset: Gradual Duration: several hours Symptoms Are: Still present Timing: Intermittent Initial Severity: Mild Current Severity: Moderate Location of Pain: Diffuse Character: Reports: Dull, Aching, Cramping Alleviating: Reports: None Associated Signs and Symptoms: Reports: Decreased appetite, Nausea. Denies: Diaphoresis, Fever, Cough, Chest pain, Dizziness, Back pain, Constipation, Blood in stool, Dysuria, Urinary frequency, Decreased urine output, Discharge, Vomiting, Diarrhea, Decreased activity Related History: Reports: Similar episode Surgical Obstruction Risk Factors: Reports: Prior abdominal surgery Abdominal Findings: Present: None Differential Diagnoses: Bowel Obstruction, Constipation, Pancreatitis Quality Indicator For Non-Traumatic Chest Pain/Syncope: EKG Performed Review of Systems - Review Of Systems Constitutional: Reports: No symptoms Eyes: Reports: No symptoms Ears, Nose, Mouth, Throat: Reports: No symptoms Respiratory: Reports: No symptoms Cardiac: Reports: Chest pain GI: Reports: Abdominal pain, Nausea : Reports: No symptoms Musculoskeletal: Reports: No symptoms Skin: Reports: No symptoms Neurological: Reports: No symptoms Endocrine: Reports: No symptoms Hematologic/Lymphatic: Reports: No symptoms All Other Systems: Reviewed and Negative Past Medical History - Past Medical History Previously Healthy: Yes Endocrine: Reports: Hypothyroid, Dyslipidemia Cardiovascular: Reports: None Respiratory: Reports: None Hematological: Reports: None Gastrointestinal: Reports: GERD, Crohn's, Pancreatitis Genitourinary: Reports: Kidney stones Neuro/Psych: Reports: Depression Musculoskeletal: Reports: None Cancer: Reports: None - Surgical History General Surgical History: Reports: Other (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, INTESTINAL RESECTION) - Family History Family History: Reports: Unknown - Social History Smoking Status: Never smoker Hx Substance Use: No Alcohol Screening: None Lives: With family - Immunizations Influenza Vaccine within 12 Months: Yes Pneumococcal Vaccine up to Date: Yes Physical Exam - Physical Exam Appearance: Well-appearing, No pain distress, Well-nourished Pain Distress: Mild Eyes: DISHA, EOMI, Conjunctiva clear ENT: Ears normal, Nose normal, Oropharynx normal Neck: Supple Respiratory: Airway patent, Breath sounds clear, Breath sounds equal, Respirations nonlabored Cardiovascular: RRR, Pulses normal, No rub, No murmur GI/: Soft, Nontender, No masses, Bowel sounds normal, No Organomegaly Musculoskeletal: Normal strength, ROM intact, No edema, No calf tenderness Skin: Warm, Dry, Normal color Neurological: Sensation intact, Motor intact, Reflexes intact, Cranial nerves intact, Alert, Oriented Psychiatric: Affect appropriate, Mood appropriate Interpretation - Radiology Interpretation Radiology Interpretation By: Radiologist Radiology Results: Negative Exam Interpreted: CT Scan - EKG Interpretation Time of EKG #1: 11:18 Rate: Normal Rhythm: Sinus Ectopy: None [place]: [place] Critical Care Note - Critical Care Note Total Time (mins): 0 Course - Course Hematology/Chemistry: 01/10/17 08:40 01/10/17 08:40 Orders, Labs, Meds: Lab Review 01/10/17 01/10/17 01/10/17 08:40 08:40 10:23 WBC 6.30 RBC 3.88 L Hgb 12.1 L Hct 35.1 L MCV 90.5 MCH 31.2 H MCHC 34.5 RDW Coeff of Svitlana 12.9 Plt Count 172 Immature Gran % (Auto) 0.5 Neut % (Auto) 52.9 Lymph % (Auto) 32.2 [place] % (Auto) 12.2 H Eos % (Auto) 1.9 Baso % (Auto) 0.3 Immature Gran # (Auto) 0.0 Neut # 3.3 Lymph # 2.0 [place] # 0.8 Eos # 0.1 Baso # 0.0 ESR 8 Sodium 140 Potassium 3.7 Chloride 110 H Carbon Dioxide 23 Anion Gap 10.7 BUN 10 Creatinine 0.82 Estimated GFR (MDRD) 108.00 BUN/Creatinine Ratio 12.19 Glucose 98 Calcium 9.4 Total Bilirubin 0.46 AST 14 L ALT 23 Alkaline Phosphatase 78 Total Creatine Kinase 103 Troponin I < 0.0100 Total Protein 6.8 Albumin 3.9 Globulin 2.9 Albumin/Globulin Ratio 1.34 Amylase 77 Lipase 42 Urine Color Yellow Urine Clarity Clear Urine pH 5.5 Ur Specific [place] 1.010 Urine Protein Negative Urine Glucose (UA) Negative Urine Ketones Negative Urine Blood 3+ Urine Nitrite Negative Urine Bilirubin Negative Urine Urobilinogen 0.2 Ur Leukocyte Esterase Negative Urine Microscopic RBC 10-20 Urine Microscopic WBC 2-5 Ur Squamous Epith Cells Not present Urine Bacteria Trace Urine Mucus 1+ Urine Yeast Trace Orders Category Date Time Status EKG-(ED ONLY) Stat CARDIO 01/10/17 08:27 Completed NPO REMINDER: IMAGING ONCE CARE 01/10/17 08:28 Active IV [ED IV/MEDIPORT/POWERPORT] .ONCE EMERGENCY 01/10/17 08:27 Active AMYLASE Stat LAB 01/10/17 08:40 Completed CBC W/ AUTO DIFF Stat LAB 01/10/17 08:40 Completed COMPREHENSIVE METABOLIC PANEL Stat LAB 01/10/17 08:40 Completed CREATINE KINASE Stat LAB 01/10/17 08:40 Completed ESR Stat LAB 01/10/17 08:40 Completed LIPASE Stat LAB 01/10/17 08:40 Completed TROPONIN I Stat LAB 01/10/17 08:40 Completed URINALYSIS C & S IF INDICATED Stat LAB 01/10/17 10:23 Completed 0.9 % Sodium Chloride [Saline Flush] MEDS 01/10/17 08:27 Active 1 syr IVF PRN PRN Meperidine HCl/Pf [Demerol 50 mg/ml Syringe] MEDS 01/10/17 08:30 Discontinued 50 mg IVP ONCE STA Ondansetron HCl/Pf [Zofran 4 mg/2 ml] MEDS 01/10/17 08:29 Discontinued 4 mg IVP ONCE STA Sodium Chloride 0.9% [Sodium Chloride] 1,000 ml MEDS 01/10/17 08:28 Active IV 100 mls/hr CT ABDOMEN/PELVIS WO CONTRAST Stat RADS 01/10/17 08:39 Completed Medications Generic Name Dose Route Start Last Admin Trade Name Freq PRN Reason Stop Dose Admin Sodium Chloride 1,000 mls @ 100 mls/hr 01/10/17 08:28 01/10/17 08:43 Sodium Chloride IV 01/10/17 18:27 100 mls/hr .Q10H STA Administration Sodium Chloride 1 syr 01/10/17 08:27 01/10/17 08:42 Saline Flush IVF 1 syr PRN PRN Administration To flush IV Discontinued Medications Generic Name Dose Route Start Last Admin Trade Name Freq PRN Reason Stop Dose Admin Meperidine HCl 50 mg 01/10/17 08:30 Demerol 50 Mg/Ml Syringe IVP 01/10/17 08:31 ONCE STA Ondansetron HCl 4 mg 01/10/17 08:29 01/10/17 08:42 Zofran 4 Mg/2 Ml IVP 01/10/17 08:30 4 mg ONCE STA Administration Vital Signs: Temp Pulse Resp BP Pulse Ox 01/10/17 08:26 98.3 F 91 H 20 120/71 100 Departure - Departure Time of Disposition: 11:18 Disposition: HOME SELF-CARE Discharge Problem: Chronic generalized abdominal pain Instructions: Chronic Abdominal Pain (ED) Condition: Stable Pt referred to PMD for follow-up: Yes Additional Instructions: ultram 50mg q 8hrs prn pain#6--f/u with pcp/gi md Allergies/Adverse Reactions: Allergies No Known Allergies Allergy (Verified 01/10/17 08:30) Home Medications: Ambulatory Orders Adalimumab [Humira] 40 mg SQ DIRECTED 05/03/16 Ondansetron HCl [Zofran] 4 mg PO PRN PRN 10/03/16 Multivitamin 1 cap PO DAILY 11/27/16 Sulfasalazine 500 mg PO TID 11/27/16 Ciprofloxacin HCl [Cipro] 500 mg PO DAILY 01/03/17 Disposition Discussed With: Patient
--- NOTE | 2017-01-10 11:15 | CT ---
EXAM: CT abdomen and pelvis after administration of oral contrast. HISTORY: Abdominal pain. TECHNIQUE: Multi-slice transaxial helical CT. Coronal and sagittal reformatons were performed. COMPARISON: 12/09/2016. FINDINGS: The heart is normal in size. The lung bases are clear. Evaluation of the solid organs is limited without IV contrast. Sub-centimeter hyperdense structures a re present within the bilateral kidneys which are too small to actually characterize. The spleen is normal in size. The gallbladder appears unremarkable. There is no intrahepatic biliary ductal dilat ion. The pancreas and the bilateral adrenal glands appear grossly unremarkable within the confines o f a noncontrast exam. The bowel is not dilated. Urinary bladder appears unremarkable. The prostate is normal in size. Part ial right colectomy is present. No evidence of fluid within the pelvis is seen. There is no retrope ritoneal adenopathy. Small limbus vertebrae at L4 is again seen. There is mild disc space narrowing at L5-S1. IMPRESSION: 1. No acute abdominal findings. No bowel obstruction, hydronephrosis, or intra-abdominal inflammatio n. 2. Tiny bilateral sub-centimeter hyperdense lesions which are too small to actually characterize. 3. Operative changes of partial right colectomy.
== END 2017-01-10 11:36 | disposition home or self-care (01) ==
LOC: ED 08:26
DX: R10.84 Generalized abdominal pain (principal); G89.29 Other chronic pain; R11.0 Nausea; Z87.19 Personal history of other diseases of the digestive system
CPT/HCPCS: 36415; 80053; 81001; 82150; 82550; 83690; 84484; 85025; 85651; 93005; 93010; 96361; 96374; 99283

== ENCOUNTER 2017-01-23 08:58 | Emergency (ER) ==
[2017-01-23 09:07] VITALS: BP 111/77; TEMP 98.8; BMI 25.0
[2017-01-23 09:39] LABS: BASOPHILS % (AUTO) 0.1 % (0.0-3.0); EOSINOPHILS # (AUTO) 0.2 K/ul (0.0-0.7); EOSINOPHILS % (AUTO) 2.3 % (0.0-7.0); HEMATOCRIT 34.4 % (42.0-52.0); HEMOGLOBIN 12.4 g/dl (14.0-18.0); IMMATURE GRANULOCYTE % (AUTO) 1.8 % (0.0-5.0); LYMPHOCYTES # (AUTO) 2.7 K/uL (0.60-3.4); LYMPHOCYTES % (AUTO) 37.7 (10.0-50.0); MEAN CORPUSCULAR HEMOGLOBIN 31.9 pg (27.0-31.0); MEAN CORPUSCULAR VOLUME 88.4 fl (80.0-94.0); MONOCYTES # (AUTO) 0.8 K/uL (0.4-2.0); MONOCYTES % (AUTO) 10.6 (0-10); NEUTROPHILS # (AUTO) 3.4 K/ul (2.0-6.9); NEUTROPHILS % (AUTO) 47.5; PLATELET COUNT 212 10^3/uL (140-440); RED BLOOD COUNT 3.89 10^6/ul (4.70-6.10); WHITE BLOOD COUNT 7.09 K/ul (4.2-10.2)
--- NOTE | 2017-01-23 10:06 | CT ---
EXAM: CT ABDOMEN AND PELVIS HISTORY: Abdominal pain TECHNIQUE: CT abdomen and pelvis without intravenous contrast. Images were reconstructed using 3 mm section thickness. Reformations were prepared. COMPARISON: 01/10/2017 FINDINGS: Diagnostic limitations exist without including contrast enhanced images. No focal hepatic or splenic lesions are obvious. Gallbladder, pancreas and adrenal glands are within normal limits. A few punc vasquez high attenuation foci within the kidneys may represent a tiny proteinaceous cysts or foci of hernandez cification. Least one tiny simple renal cortical cyst is suggested on the right. No hydronephrosis or evidence of ureteral obstruction. Abdominal aorta is within normal limits. Stomach appears normal. Patient has underwent previous right colectomy. There is mild wall thickeni ng of the descending and sigmoid colon extending into the rectum with increased submucosal fat deposi tion and subtle pericolic stranding, the latter at least at the descending colon level. Bowel gas pa ttern is nonobstructive. Urinary bladder and prostate within normal limits. There is no ascites. No significant ventral abdominal wall defect. Bones are within normal limits and lung bases are amber r. No pneumoperitoneum. IMPRESSION: Findings as described in the second paragraph of the report which can be consistent with prior bouts of colonic inflammation. Early active colitis is not excluded. Bowel gas pattern is no nobstructive. The patient has underwent previous right colectomy.
[2017-01-23 10:12] LABS: BILIRUBIN,URINE Negative (NEGATIVE); KETONES,URINE Negative (NEGATIVE); LEUKOCYTE ESTERASE ,URINE Negative (NEGATIVE); NITRITE,URINE Negative (NEGATIVE); PROTEIN,URINE Negative (NEGATIVE); URINE, BLOOD Negative (NEGATIVE)
[2017-01-23 10:13] LABS: ADD URINE MICROSCOPIC NO
[2017-01-23 10:14] LABS: ERYTHROCYTE SEDIMENTATION RATE 10 mm/hr (0-15); ESR INTERNAL QC INTERNAL QC VALID
[2017-01-23 10:15] LABS: ALANINE AMINOTRANSFERASE 28 U/L (12-78); ALBUMIN 3.8 g/dL (3.4-5.0); ALBUMIN/GLOBULIN RATIO 1.15; ALKALINE PHOSPHATASE 67 U/L (50-136); AMYLASE 53 U/L (25-115); ANION GAP 12.9; ASPARTATE AMINO TRANSFERASE 18 U/L (15-37); BILIRUBIN,TOTAL 0.28 mg/dL (0.00-1.20); BLOOD UREA NITROGEN 10 mg/dL (7-18); BUN/CREATININE RATIO 10.98; CALCIUM 9.3 mg/dL (8.2-10.2); CARBON DIOXIDE 24 mmol/L (21-32); CHLORIDE 105 mmol/L (98-107); CREATINE KINASE 67 U/L; CREATININE 0.91 mg/dL (0.60-1.10); GLUCOSE 91 mg/dL (70-100); LIPASE 19 U/L (8-78); POTASSIUM 3.9 mmol/L (3.5-5.1); SODIUM 138 mmol/L (136-145); TOTAL PROTEIN 7.1 g/dL (6.4-8.2)
--- NOTE | 2017-01-23 10:31 | ED.PDOC ---
General ED Provider: Dr. JULEE GONZALEZ-ER Chief Complaint: Abdominal Pain Stated Complaint: my chrons dz is acting up and im scheduled for colonoscopy Time Seen by Physician: 09:00 Mode of Arrival: Walk-In Information Source: Patient Exam Limitations: No limitations Nursing and Triage Documentation Reviewed and Agree: Yes GI Complaint Exam - Abdominal Pain Complaint/Exam Onset: Gradual Duration: several days Symptoms Are: Still present Timing: Constant Initial Severity: Mild Current Severity: Mild Location of Pain: Diffuse Character: Reports: Dull, Aching, Cramping Aggravating: Reports: None Associated Signs and Symptoms: Reports: Nausea. Denies: Diaphoresis, Fever, Cough, Chest pain, Dizziness, Back pain, Constipation, Blood in stool, Dysuria, Urinary frequency, Decreased urine output, Decreased appetite, Discharge, Vomiting, Diarrhea, Decreased activity Related History: Reports: Similar episode Abdominal Findings: Present: None Differential Diagnoses: Other Review of Systems - Review Of Systems Constitutional: Reports: No symptoms Eyes: Reports: No symptoms Ears, Nose, Mouth, Throat: Reports: No symptoms Respiratory: Reports: No symptoms Cardiac: Reports: No symptoms GI: Reports: Abdominal pain, Nausea : Reports: No symptoms Musculoskeletal: Reports: No symptoms Skin: Reports: No symptoms Neurological: Reports: No symptoms Endocrine: Reports: No symptoms Hematologic/Lymphatic: Reports: No symptoms All Other Systems: Reviewed and Negative Past Medical History - Past Medical History Previously Healthy: Yes Endocrine: Reports: Hypothyroid, Dyslipidemia Cardiovascular: Reports: None Respiratory: Reports: None Hematological: Reports: None Gastrointestinal: Reports: GERD, Crohn's, Pancreatitis Genitourinary: Reports: Kidney stones Neuro/Psych: Reports: Depression Musculoskeletal: Reports: None Cancer: Reports: None - Surgical History General Surgical History: Reports: Other (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, INTESTINAL RESECTION) - Family History Family History: Reports: Unknown - Social History Smoking Status: Never smoker Hx Substance Use: No Alcohol Screening: None - Immunizations Tetanus Shot up to Date: No Influenza Vaccine within 12 Months: Yes Pneumococcal Vaccine up to Date: Yes Physical Exam - Physical Exam Appearance: Well-appearing, No pain distress, Well-nourished Pain Distress: Mild Eyes: DISHA, EOMI, Conjunctiva clear ENT: Ears normal, Nose normal, Oropharynx normal Neck: Supple Respiratory: Airway patent, Breath sounds clear, Breath sounds equal, Respirations nonlabored Cardiovascular: RRR GI/: Soft, No masses, Bowel sounds normal, No Organomegaly, Tender Musculoskeletal: Normal strength, ROM intact, No edema, No calf tenderness Skin: Warm Neurological: Sensation intact, Motor intact, Reflexes intact, Cranial nerves intact, Alert, Oriented Psychiatric: Affect appropriate, Mood appropriate Interpretation - Radiology Interpretation Radiology Interpretation By: Radiologist Radiology Results: Positive Exam Interpreted: CT Scan Critical Care Note - Critical Care Note Total Time (mins): 0 Course - Course Hematology/Chemistry: 01/23/17 09:30 01/23/17 09:30 Orders, Labs, Meds: Lab Review 01/23/17 01/23/17 01/23/17 09:30 09:30 09:49 WBC 7.09 RBC 3.89 L Hgb 12.4 L Hct 34.4 L MCV 88.4 MCH 31.9 H MCHC 36.0 H RDW Coeff of Svitlana 12.7 Plt Count 212 Immature Gran % (Auto) 1.8 Neut % (Auto) 47.5 Lymph % (Auto) 37.7 [place] % (Auto) 10.6 H Eos % (Auto) 2.3 Baso % (Auto) 0.1 Immature Gran # (Auto) 0.1 Neut # 3.4 Lymph # 2.7 [place] # 0.8 Eos # 0.2 Baso # 0.0 ESR 10 Sodium 138 Potassium 3.9 Chloride 105 Carbon Dioxide 24 Anion Gap 12.9 BUN 10 Creatinine 0.91 Estimated GFR (MDRD) 96.00 BUN/Creatinine Ratio 10.98 Glucose 91 Calcium 9.3 Total Bilirubin 0.28 AST 18 ALT 28 Alkaline Phosphatase 67 Total Creatine Kinase 67 Troponin I < 0.0100 Total Protein 7.1 Albumin 3.8 Globulin 3.3 Albumin/Globulin Ratio 1.15 Amylase 53 Lipase 19 Urine Color Yellow Urine Clarity Clear Urine pH 6.0 Ur Specific [place] 1.025 Urine Protein Negative Urine Glucose (UA) Negative Urine Ketones Negative Urine Blood Negative Urine Nitrite Negative Urine Bilirubin Negative Urine Urobilinogen 0.2 Ur Leukocyte Esterase Negative Orders Category Date Time Status EKG-(ED ONLY) Stat CARDIO 01/23/17 09:19 Ordered AMYLASE Stat LAB 01/23/17 09:30 Completed CBC W/ AUTO DIFF Stat LAB 01/23/17 09:30 Completed COMPREHENSIVE METABOLIC PANEL Stat LAB 01/23/17 09:30 Completed CREATINE KINASE Stat LAB 01/23/17 09:30 Completed CRP [C-REACTIVE PROTEIN] Stat LAB 01/23/17 09:30 Received ESR Stat LAB 01/23/17 09:30 Completed LIPASE Stat LAB 01/23/17 09:30 Completed TROPONIN I Stat LAB 01/23/17 09:30 Completed URINALYSIS C & S IF INDICATED Stat LAB 01/23/17 09:[address] ABDOMEN/PELVIS WO CONTRAST Stat RADS 01/23/17 09:20 Completed Vital Signs: Temp Pulse Resp BP Pulse Ox 01/23/17 08:58 98.8 F 115 H 20 111/77 98 Departure - Departure Time of Disposition: 10:31 Disposition: HOME SELF-CARE Discharge Problem: Colitis Instructions: Colitis (ED) Condition: Good Pt referred to PMD for follow-up: Yes Additional Instructions: flagyl 250mg tid x 7 days (if he is not taking this)--norco 5mg q 6hrs prn pain #10--f/u wtih gi Allergies/Adverse Reactions: Allergies No Known Allergies Allergy (Verified 01/23/17 09:05) Home Medications: Ambulatory Orders Ondansetron HCl [Zofran] 4 mg PO PRN PRN 10/03/16 Sulfasalazine 500 mg PO TID 11/27/16 Metronidazole [Flagyl] 500 mg PO DAILY 01/23/17 Prednisone 20 mg PO DAILY 01/23/17 Disposition Discussed With: Patient
== END 2017-01-23 10:45 | disposition home or self-care (01) ==
LOC: ED 08:58
DX: K52.9 Noninfective gastroenteritis and colitis, unspecified (principal); R10.84 Generalized abdominal pain; E78.5 Hyperlipidemia, unspecified; E03.9 Hypothyroidism, unspecified; Z87.19 Personal history of other diseases of the digestive system; Z79.899 Other long term (current) drug therapy
CPT/HCPCS: 36415; 80053; 81001; 82150; 82550; 83690; 84484; 85025; 85651; 86140; 99284

== ENCOUNTER 2017-01-24 14:17 | Emergency (ER) ==
[2017-01-24 14:20] VITALS: BP 114/65; TEMP 97.7; BMI 25.0
[2017-01-24 14:57] LABS: BASOPHILS % (AUTO) 0.3 % (0.0-3.0); EOSINOPHILS # (AUTO) 0.1 K/ul (0.0-0.7); EOSINOPHILS % (AUTO) 1.6 % (0.0-7.0); HEMATOCRIT 35.1 % (42.0-52.0); HEMOGLOBIN 12.7 g/dl (14.0-18.0); LYMPHOCYTES # (AUTO) 2.5 K/uL (0.60-3.4); LYMPHOCYTES % (AUTO) 33.7 (10.0-50.0); MEAN CORPUSCULAR HEMOGLOBIN 32.2 pg (27.0-31.0); MEAN CORPUSCULAR HGB CONC 36.2 (31.8-35.4); MEAN CORPUSCULAR VOLUME 88.9 fl (80.0-94.0); MONOCYTES # (AUTO) 0.7 K/uL (0.4-2.0); MONOCYTES % (AUTO) 9.4 (0-10); PLATELET COUNT 225 10^3/uL (140-440); RED BLOOD COUNT 3.95 10^6/ul (4.70-6.10); WHITE BLOOD COUNT 7.34 K/ul (4.2-10.2)
[2017-01-24 15:16] LABS: ALBUMIN 3.7 g/dL (3.4-5.0); ANION GAP 13.6; BILIRUBIN,TOTAL 0.35 mg/dL (0.00-1.20); BUN/CREATININE RATIO 12.5; CALCIUM 9.5 mg/dL (8.2-10.2); CREATININE 1.04 mg/dL (0.60-1.10); POTASSIUM 3.6 mmol/L (3.5-5.1); TOTAL PROTEIN 7.4 g/dL (6.4-8.2)
--- NOTE | 2017-01-24 15:20 | CT ---
EXAM: CT of the abdomen pelvis without contrast History: Left lower quadrant abdominal pain, history of Crohn disease. Comparison: CT abdomen pelvis 01/23/2017 Technique: Multiplanar CT images through the abdomen pelvis were obtained without the administration of IV contrast Findings: Lung bases are clear. No acute osseous abnormalities. No focal liver or splenic lesions. Gallbladder is contracted. No peripancreatic inflammation. New adrenal glands are unremarkable. No renal stones and no hydronephrosis. Postsurgical changes of the colon. There is central mesenteric inflammation with multiple sub-centimeter mesenteric lymph nodes. There is hyperemia adjacent to the small bowel loops, similar to the prior study. There is promine nt submucosal fat deposition seen within grullon of the colon also similar to the prior study. No asci chidi. No free air. Prostate is not enlarged. There is mild inflammation seen adjacent to the bladde r wall. No abscess. Impression: 1. Small bowel hyperemia and mesenteric inflammation suggesting active inflammatory bowel disease. N o bowel obstruction. 2. Mild inflammation seen adjacent to the bladder. Correlate urinalysis for possible cystitis.
--- NOTE | 2017-01-24 15:25 | ED.PDOC ---
General ED Provider: Dr. SHARAN MCHUGH Chief Complaint: Abdominal Pain Stated Complaint: abdominal pain Time Seen by Physician: 14:17 Mode of Arrival: Walk-In Information Source: Patient Exam Limitations: No limitations Nursing and Triage Documentation Reviewed and Agree: Yes GI Complaint Exam - Abdominal Pain Complaint/Exam Onset: Gradual Duration: 2 days Symptoms Are: Still present Timing: Intermittent Initial Severity: Moderate Current Severity: Moderate Location of Pain: Diffuse Character: Reports: Aching Aggravating: Reports: None Alleviating: Reports: None Associated Signs and Symptoms: Denies: Diaphoresis, Fever, Cough, Chest pain, Dizziness, Back pain, Constipation, Blood in stool, Dysuria, Urinary frequency, Decreased urine output, Decreased appetite, Discharge, Nausea, Vomiting, Diarrhea, Decreased activity Related History: Reports: Similar episode AAA Risk Factors: Reports: None Cardiac Risk Factors: Reports: None Testicular Torsion Risk Factors: Reports: None Surgical Obstruction Risk Factors: Reports: None Abdominal Findings: Present: None Quality Indicators for AMI: EKG in 10min. Quality Indicators for Cardiac Chest Pain: EKG in 10min. Quality Indicator For Non-Traumatic Chest Pain/Syncope: EKG Performed Review of Systems - Review Of Systems Constitutional: Reports: No symptoms Eyes: Reports: No symptoms Ears, Nose, Mouth, Throat: Reports: No symptoms Respiratory: Reports: No symptoms Cardiac: Reports: No symptoms GI: Reports: Abdominal pain : Reports: No symptoms Musculoskeletal: Reports: No symptoms Skin: Reports: No symptoms Neurological: Reports: No symptoms Endocrine: Reports: No symptoms Hematologic/Lymphatic: Reports: No symptoms All Other Systems: Reviewed and Negative Past Medical History - Past Medical History Previously Healthy: Yes Endocrine: Reports: Hypothyroid, Dyslipidemia Cardiovascular: Reports: None Respiratory: Reports: None Hematological: Reports: None Gastrointestinal: Reports: GERD, Crohn's, Pancreatitis Genitourinary: Reports: Kidney stones Neuro/Psych: Reports: Depression Musculoskeletal: Reports: None Cancer: Reports: None - Surgical History General Surgical History: Reports: Other (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, INTESTINAL RESECTION) - Family History Family History: Reports: Unknown - Social History Smoking Status: Never smoker Hx Substance Use: No Alcohol Screening: None - Immunizations Influenza Vaccine within 12 Months: Yes Pneumococcal Vaccine up to Date: Yes Physical Exam - Physical Exam Appearance: Well-appearing, No pain distress, Well-nourished Eyes: DISHA, EOMI, Conjunctiva clear ENT: Ears normal, Nose normal, Oropharynx normal Respiratory: Airway patent, Breath sounds clear, Breath sounds equal, Respirations nonlabored Cardiovascular: RRR, Pulses normal, No rub, No murmur GI/: Soft, Nontender, No masses, Bowel sounds normal, No Organomegaly Musculoskeletal: Normal strength, ROM intact, No edema, No calf tenderness Skin: Warm, Dry, Normal color Neurological: Sensation intact, Motor intact, Reflexes intact, Cranial nerves intact, Alert, Oriented Psychiatric: Affect appropriate, Mood appropriate Interpretation - Radiology Interpretation Radiology Interpretation By: Radiologist Radiology Results: No acute changes Critical Care Note - Critical Care Note Total Time (mins): 0 Course - Course Hematology/Chemistry: 01/24/17 14:47 01/24/17 14:47 Orders, Labs, Meds: Lab Review 01/24/17 01/24/17 14:47 14:47 WBC 7.34 RBC 3.95 L Hgb 12.7 L Hct 35.1 L MCV 88.9 MCH 32.2 H MCHC 36.2 H RDW Coeff of Svitlana 12.5 Plt Count 225 Immature Gran % (Auto) 1.0 Neut % (Auto) 54.0 Lymph % (Auto) 33.7 [place] % (Auto) 9.4 Eos % (Auto) 1.6 Baso % (Auto) 0.3 Immature Gran # (Auto) 0.1 Neut # 4.0 Lymph # 2.5 [place] # 0.7 Eos # 0.1 Baso # 0.0 Sodium 141 Potassium 3.6 Chloride 105 Carbon Dioxide 26 Anion Gap 13.6 BUN 13 Creatinine 1.04 Estimated GFR (MDRD) 82.00 BUN/Creatinine Ratio 12.50 Glucose 127 H Calcium 9.5 Total Bilirubin 0.35 AST 15 ALT 26 Alkaline Phosphatase 64 Total Protein 7.4 Albumin 3.7 Globulin 3.7 Albumin/Globulin Ratio 1.00 Orders Category Date Time Status CBC W/ AUTO DIFF Stat LAB 01/24/17 14:47 Completed COMPREHENSIVE METABOLIC PANEL Stat LAB 01/24/17 14:[address] ABDOMEN/PELVIS WO CONTRAST Stat RADS 01/24/17 14:29 Completed Vital Signs: Temp Pulse Resp BP Pulse Ox 01/24/17 14:17 97.7 F 110 H 18 114/65 95 Departure - Departure Time of Disposition: 15:25 Disposition: HOME SELF-CARE Discharge Problem: Abdominal pain Instructions: Abdominal Pain (ED) Condition: Good Pt referred to PMD for follow-up: Yes Additional Instructions: Please call your Family Physician as soon as possible to schedule a follow-up appointment. Allergies/Adverse Reactions: Allergies No Known Allergies Allergy (Verified 01/24/17 14:21) Home Medications: Ambulatory Orders Ondansetron HCl [Zofran] 4 mg PO PRN PRN 10/03/16 Sulfasalazine 500 mg PO TID 11/27/16 Metronidazole [Flagyl] 500 mg PO DAILY 01/23/17 Prednisone 20 mg PO DAILY 01/23/17
[2017-01-24] MEDS ORDERED: TORADOL IM STA (15:26)
== END 2017-01-24 15:36 | disposition home or self-care (01) ==
LOC: ED 14:17
DX: R10.9 Unspecified abdominal pain (principal); Z87.19 Personal history of other diseases of the digestive system
CPT/HCPCS: 36415; 80053; 85025; 99283

== ENCOUNTER 2017-01-30 11:49 | Emergency (ER) ==
[2017-01-30 11:54] VITALS: BP 101/67; TEMP 96.7; BMI 24.7
[2017-01-30 13:33] LABS: BASOPHILS % (AUTO) 0.1 % (0.0-3.0); EOSINOPHILS # (AUTO) 0.1 K/ul (0.0-0.7); EOSINOPHILS % (AUTO) 1.1 % (0.0-7.0); HEMATOCRIT 34.3 % (42.0-52.0); HEMOGLOBIN 12.3 g/dl (14.0-18.0); IMMATURE GRANULOCYTE % (AUTO) 0.3 % (0.0-5.0); LYMPHOCYTES # (AUTO) 2.2 K/uL (0.60-3.4); LYMPHOCYTES % (AUTO) 29.3 (10.0-50.0); MEAN CORPUSCULAR HEMOGLOBIN 30.9 pg (27.0-31.0); MEAN CORPUSCULAR HGB CONC 35.9 (31.8-35.4); MEAN CORPUSCULAR VOLUME 86.2 fl (80.0-94.0); MONOCYTES # (AUTO) 0.7 K/uL (0.4-2.0); MONOCYTES % (AUTO) 9.1 (0-10); NEUTROPHILS # (AUTO) 4.6 K/ul (2.0-6.9); NEUTROPHILS % (AUTO) 60.1; PLATELET COUNT 191 10^3/uL (140-440); RED BLOOD COUNT 3.98 10^6/ul (4.70-6.10); WHITE BLOOD COUNT 7.57 K/ul (4.2-10.2)
[2017-01-30] MEDS ORDERED: ZOFRAN 4 MG/2 ML IM STA (13:33)
[2017-01-30] MEDS ORDERED: TORADOL IM STA (13:33)
[2017-01-30] MEDS ORDERED: SODIUM CHLORIDE 1,000 ML IV STA (13:45)
[2017-01-30] MEDS ORDERED: TORADOL IVP STA (13:45)
[2017-01-30] MEDS ORDERED: ZOFRAN 4 MG/2 ML IVP STA (13:45)
[2017-01-30 13:53] LABS: ALBUMIN 3.8 g/dL (3.4-5.0); ALBUMIN/GLOBULIN RATIO 1.23; ANION GAP 12.6; BILIRUBIN,TOTAL 0.33 mg/dL (0.00-1.20); BUN/CREATININE RATIO 16.27; CALCIUM 9.6 mg/dL (8.2-10.2); CREATININE 0.86 mg/dL (0.60-1.10); POTASSIUM 3.6 mmol/L (3.5-5.1); TOTAL PROTEIN 6.9 g/dL (6.4-8.2)
--- NOTE | 2017-02-18 21:09 | ED.PDOC ---
General ED Provider: Dr. URMILA TRAMMELL Chief Complaint: Abdominal Pain Stated Complaint: Patient is a 31 year old male who is well known for his chronic abdominal pain comes to the ER with similar complains. States the pain is not any different that his usual pain. He states that he has not seen a GI doctor yet. States that his pain has been intolerable today so came to the ER. Time Seen by Physician: 12:30 Mode of Arrival: Walk-In Information Source: Patient Nursing and Triage Documentation Reviewed and Agree: Yes GI Complaint Exam - Abdominal Pain Complaint/Exam Onset: Gradual Duration: constant Symptoms Are: Still present Timing: Constant Initial Severity: Severe Current Severity: Severe Location of Pain: Diffuse Character: Reports: Dull, Aching Aggravating: Reports: Food Associated Signs and Symptoms: Denies: Diaphoresis, Fever, Cough, Chest pain, Dizziness, Back pain, Constipation, Blood in stool, Dysuria, Urinary frequency, Decreased urine output, Decreased appetite, Discharge, Nausea, Vomiting, Diarrhea, Decreased activity Abdominal Findings: Absent: Abdominal distention, Peritoneal signs, McBurney's Point tender Review of Systems - Review Of Systems Constitutional: Reports: No symptoms, Loss of appetite GI: Reports: Abdominal pain, Poor appetite Neurological: Reports: Anxiety All Other Systems: Reviewed and Negative Past Medical History - Past Medical History Previously Healthy: Yes Endocrine: Reports: Hypothyroid, Dyslipidemia Cardiovascular: Reports: None Respiratory: Reports: None Hematological: Reports: None Gastrointestinal: Reports: GERD, Crohn's, Pancreatitis Genitourinary: Reports: Kidney stones Neuro/Psych: Reports: Depression Musculoskeletal: Reports: None Cancer: Reports: None - Surgical History General Surgical History: Reports: Other (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, INTESTINAL RESECTION) - Family History Family History: Reports: Unknown - Social History Smoking Status: Never smoker Hx Substance Use: No Alcohol Screening: None - Immunizations Tetanus Shot up to Date: No Influenza Vaccine within 12 Months: Yes Pneumococcal Vaccine up to Date: Yes Physical Exam - Physical Exam Appearance: Ill-appearing Ill-appearing: Moderate Pain Distress: Severe Neck: Supple Respiratory: Airway patent, Breath sounds clear, Breath sounds equal, Respirations nonlabored Cardiovascular: Pulses normal, No rub, No murmur, Tachycardia GI/: Tender Musculoskeletal: Normal strength, ROM intact, No edema, No calf tenderness Skin: Warm, Dry, Normal color Neurological: Sensation intact, Alert, Oriented Psychiatric: Anxious Critical Care Note - Critical Care Note Total Time (mins): 0 Course - Course Hematology/Chemistry: 01/30/17 13:25 01/30/17 13:25 Orders, Labs, Meds: Lab Review 01/30/17 01/30/17 13:25 13:25 WBC 7.57 RBC 3.98 L Hgb 12.3 L Hct 34.3 L MCV 86.2 MCH 30.9 MCHC 35.9 H RDW Coeff of Svitlana 12.3 Plt Count 191 Immature Gran % (Auto) 0.3 Neut % (Auto) 60.1 Lymph % (Auto) 29.3 White % (Auto) 9.1 Eos % (Auto) 1.1 Baso % (Auto) 0.1 Immature Gran # (Auto) 0.0 Neut # 4.6 Lymph # 2.2 White # 0.7 Eos # 0.1 Baso # 0.0 Sodium 140 Potassium 3.6 Chloride 107 Carbon Dioxide 24 Anion Gap 12.6 BUN 14 Creatinine 0.86 Estimated GFR (MDRD) 102.00 BUN/Creatinine Ratio 16.27 Glucose 96 Calcium 9.6 Total Bilirubin 0.33 AST 18 ALT 29 Alkaline Phosphatase 65 Total Protein 6.9 Albumin 3.8 Globulin 3.1 Albumin/Globulin Ratio 1.23 Amylase 53 Lipase 24 Orders Category Date Time Status AMYLASE Stat LAB 01/30/17 13:25 Completed CBC W/ AUTO DIFF Stat LAB 01/30/17 13:25 Completed COMPREHENSIVE METABOLIC PANEL Stat LAB 01/30/17 13:25 Completed LIPASE Stat LAB 01/30/17 13:25 Completed Ketorolac Tromethamine [Toradol] MEDS 01/30/17 13:45 Discontinued 30 mg IVP ONCE STA Ketorolac Tromethamine [Toradol] MEDS 01/30/17 13:33 Discontinued 60 mg IM ONCE STA Ondansetron HCl/Pf [Zofran 4 mg/2 ml] MEDS 01/30/17 13:33 Discontinued 4 mg IM ONCE STA Ondansetron HCl/Pf [Zofran 4 mg/2 ml] MEDS 01/30/17 13:45 Discontinued 4 mg IVP ONCE STA Sodium Chloride 0.9% [Sodium Chloride] 1,000 ml MEDS 01/30/17 13:45 Discontinued IV BOLUS Medications Discontinued Medications Generic Name Dose Route Start Last Admin Trade Name Freq PRN Reason Stop Dose Admin Sodium Chloride 1,000 mls @ 1,000 mls/hr 01/30/17 13:45 01/30/17 13:52 Sodium Chloride IV 01/30/17 14:44 Not Given BOLUS STA Ketorolac Tromethamine 60 mg 01/30/17 13:33 01/30/17 13:39 Toradol IM 01/30/17 13:34 Not Given ONCE STA Ketorolac Tromethamine 30 mg 01/30/17 13:45 01/30/17 13:52 Toradol IVP 01/30/17 13:46 Not Given ONCE STA Ondansetron HCl 4 mg 01/30/17 13:33 01/30/17 13:39 Zofran 4 Mg/2 Ml IM 01/30/17 13:34 Not Given ONCE STA Ondansetron HCl 4 mg 01/30/17 13:45 01/30/17 13:52 Zofran 4 Mg/2 Ml IVP 01/30/17 13:46 Not Given ONCE STA Vital Signs: Temp Pulse Resp BP Pulse Ox 01/30/17 11:50 96.7 F L 132 H 18 101/67 98 Departure - Departure Time of Disposition: 13:55 Disposition: AMA Discharge Problem: Abdominal pain Condition: Fair Pt referred to PMD for follow-up: No (AMA) Allergies/Adverse Reactions: Allergies No Known Allergies Allergy (Verified 02/13/17 10:42) Home Medications: Ambulatory Orders Ondansetron HCl [Zofran] 4 mg PO PRN PRN 10/03/16 Sulfasalazine 500 mg PO TID 11/27/16 Metronidazole [Flagyl] 500 mg PO BID PRN 01/23/17 Cyclobenzaprine HCl [Flexeril] 5 mg PO DAILY PRN 02/13/17 Gabapentin [Neurontin] 300 mg PO TID 02/13/17 Tramadol HCl [Ultram] 50 mg PO Q6H PRN #14 tablet 02/13/17
== END 2017-01-30 14:00 | disposition left against medical advice (07) ==
LOC: ED 11:49
DX: R10.9 Unspecified abdominal pain (principal); G89.29 Other chronic pain; Z79.899 Other long term (current) drug therapy; Z87.19 Personal history of other diseases of the digestive system
CPT/HCPCS: 36415; 80053; 82150; 83690; 85025; 99284

== ENCOUNTER 2017-02-13 10:39 | Emergency (ER) ==
[2017-02-13 10:48] VITALS: BP 114/72; TEMP 97.7; BMI 24.6
[2017-02-13] MEDS ORDERED: TORADOL IM STA (11:27)
[2017-02-13] MEDS ORDERED: ULTRAM PO STA (11:27)
--- NOTE | 2017-02-13 11:29 | ED.PDOC ---
General ED Provider: Dr. URMILA TRAMMELL Chief Complaint: Back Pain Stated Complaint: Patient is a 31 year old male who comes to the ER with lower back pain that started while cutting a tree yesterday. He was unable to sleep last night and took some of his flexeril. Today he still has severe pain on the lower back. Time Seen by Physician: 11:27 Mode of Arrival: Walk-In Information Source: Patient Exam Limitations: No limitations Nursing and Triage Documentation Reviewed and Agree: Yes Musculoskeletal Complaint Exam - Back Pain Complaint/Exam Mechanism of Injury: Reports: No known trauma Onset/Duration: 2 days Symptoms Are: Still present Timing: Constant Episodes Lasting: Days (2) Initial Severity: Moderate Current Severity: Severe Location: Reports: Radiating (to both legs ) Character: Reports: Aching, Throbbing Aggravating: Reports: Movements, Lifting, Bending, Walking Alleviating: Reports: None Associated Signs and Symptoms: Denies: Swelling, Redness, Bruising, Fever, Weakness, Numbness, Tingling, Abdominal pain, Flank pain, Bladder incontinence, Bowel incontinence, Weight loss, Pain with weight bearing TAD Risk Factors: Reports: None AAA Risk Factors: Reports: None Cauda Equina Risk Factors: Reports: None Epidural Abcess Risk Factors: Reports: None Related Surgical History: Reports: None Focal Tenderness: No Paraspinal Muscle Tenderness: Yes Paraspinal Muscle Spasm: Yes Scoliosis: No Lordosis: No Kyphosis: No SLR Test: Right Positive, Left Positive Hip Motion Testing Pain: Right Negative, Left Negative Focal Weakness: Present: None Focal Sensory Loss: Present: None Gait: Present: Abnormal (due to pain ) Back Picture: 1 - pain and spasms 2 - radiation 3 - radiation Differential Diagnoses: Arthritis, Herniated Disk, Strain, Sprain Review of Systems - Review Of Systems Constitutional: Reports: No symptoms Respiratory: Reports: No symptoms Cardiac: Reports: No symptoms GI: Reports: No symptoms Musculoskeletal: Reports: Back pain, Joint pain Skin: Reports: No symptoms Neurological: Reports: No symptoms Endocrine: Reports: No symptoms All Other Systems: Reviewed and Negative Past Medical History - Past Medical History Previously Healthy: Yes Endocrine: Reports: Hypothyroid, Dyslipidemia Cardiovascular: Reports: None Respiratory: Reports: None Hematological: Reports: None Gastrointestinal: Reports: GERD, Crohn's, Pancreatitis Genitourinary: Reports: Kidney stones Neuro/Psych: Reports: Depression Musculoskeletal: Reports: None Cancer: Reports: None - Surgical History General Surgical History: Reports: Other (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, INTESTINAL RESECTION) - Family History Family History: Reports: Unknown - Social History Smoking Status: Never smoker Hx Substance Use: No Alcohol Screening: None - Immunizations Influenza Vaccine within 12 Months: Yes Pneumococcal Vaccine up to Date: Yes Physical Exam - Physical Exam Appearance: Ill-appearing Ill-appearing: Moderate Pain Distress: Severe Neck: Supple Respiratory: Airway patent, Breath sounds clear, Breath sounds equal, Respirations nonlabored Cardiovascular: RRR, Pulses normal, No rub, No murmur Musculoskeletal: Limited ROM (due to pain ) Skin: Warm, Dry Neurological: Sensation intact, Alert, Oriented Psychiatric: Affect appropriate, Mood appropriate Interpretation - Radiology Interpretation Radiology Interpretation By: Radiologist Radiology Results: Negative Exam Interpreted: Other (Lumbar spine ) Critical Care Note - Critical Care Note Total Time (mins): 0 Course - Course Orders, Labs, Meds: Orders Category Date Time Status Ketorolac Tromethamine [Toradol] MEDS 02/13/17 11:27 Discontinued 60 mg IM ONCE STA Tramadol HCl [Ultram] MEDS 02/13/17 11:27 Discontinued 50 mg PO ONCE STA LUMBAR SPINE, 2 OR 3 VIEWS Stat RADS 02/13/17 11:30 Completed Medications Discontinued Medications Generic Name Dose Route Start Last Admin Trade Name Freq PRN Reason Stop Dose Admin Ketorolac Tromethamine 60 mg 02/13/17 11:27 02/13/17 12:38 Toradol IM 02/13/17 11:28 Not Given ONCE STA Tramadol HCl 50 mg 02/13/17 11:27 02/13/17 11:38 Ultram PO 02/13/17 11:28 50 mg ONCE STA Administration Vital Signs: Temp Pulse Resp BP Pulse Ox 02/13/17 10:44 97.7 F 97 H 16 114/72 100 Departure - Departure Time of Disposition: 12:05 Disposition: HOME SELF-CARE Discharge Problem: Backache Lumbar back sprain Qualifiers: Encounter type: initial encounter Qualified Code(s): S33.5XXA - Sprain of ligaments of lumbar spine, initial encounter Sciatica Qualifiers: Laterality: bilateral Qualified Code(s): M54.31 - Sciatica, right side Instructions: Sciatica (ED), Low Back Strain (GEN), Lower Back Exercises (ED) Condition: Good Pt referred to PMD for follow-up: Yes Additional Instructions: Rest Take Medications as prescribed Follow up with PCP In 3 days Prescriptions: Tramadol HCl [Ultram] 50 mg PO Q6H PRN #14 tablet PRN Reason: Severe Pain Allergies/Adverse Reactions: Allergies No Known Allergies Allergy (Verified 02/13/17 10:42) Home Medications: Ambulatory Orders Ondansetron HCl [Zofran] 4 mg PO PRN PRN 10/03/16 Sulfasalazine 500 mg PO TID 11/27/16 Metronidazole [Flagyl] 500 mg PO BID PRN 01/23/17 Cyclobenzaprine HCl [Flexeril] 5 mg PO DAILY PRN 02/13/17 Gabapentin [Neurontin] 300 mg PO TID 02/13/17 Tramadol HCl [Ultram] 50 mg PO Q6H PRN #14 tablet 02/13/17 Disposition Discussed With: Patient, Family
--- NOTE | 2017-02-13 11:59 | DI ---
EXAM: Three-view lumbar spine COMPARISON: 10/18/2014 lumbar spine HISTORY: Back pain. FINDINGS: Examination is stable. There is no acute compression or subluxation. Alignment is anatomic. There is some disc space narrowing at L3-4 with a focal osteophyte at L4. There is minimal degenerat rey change noted otherwise. The visualized sacroiliac joints are symmetric with no evidence for erosion. Soft tissues are unrema rkable. There are no pathologic calcifications or masses. There are 5 lumbar type vertebral bodies. There has been prior bowel resection in the right abdomen. IMPRESSION: Stable lumbar spine with no acute intervening abnormality.
== END 2017-02-13 12:20 | disposition home or self-care (01) ==
LOC: ED 10:39
DX: S33.5XXA Sprain of ligaments of lumbar spine, initial encounter (principal); M54.31 Sciatica, right side; X50.9XXA Other and unspecified overexertion or strenuous movements or postures, initial encounter
CPT/HCPCS: 99283

== ENCOUNTER 2017-02-20 12:11 | Emergency (ER) ==
[2017-02-20 12:14] VITALS: BP 131/81; TEMP 98.4; BMI 25.0
[2017-02-20] MEDS ORDERED: TORADOL IVP STA (12:45)
[2017-02-20] MEDS ORDERED: ZOFRAN 4 MG/2 ML IVP STA (12:45)
[2017-02-20] MEDS ORDERED: SODIUM CHLORIDE 1,000 ML IV STA (12:45)
[2017-02-20] MEDS ORDERED: TORADOL IM STA (12:47)
[2017-02-20] MEDS ORDERED: ZOFRAN 4 MG/2 ML IM STA (12:49)
[2017-02-20 13:04] LABS: BASOPHILS % (AUTO) 0.1 % (0.0-3.0); EOSINOPHILS # (AUTO) 0.1 K/ul (0.0-0.7); EOSINOPHILS % (AUTO) 1.4 % (0.0-7.0); HEMATOCRIT 32.8 % (42.0-52.0); HEMOGLOBIN 11.8 g/dl (14.0-18.0); IMMATURE GRANULOCYTE % (AUTO) 0.7 % (0.0-5.0); LYMPHOCYTES # (AUTO) 1.8 K/uL (0.60-3.4); LYMPHOCYTES % (AUTO) 25.8 (10.0-50.0); MEAN CORPUSCULAR HEMOGLOBIN 31.9 pg (27.0-31.0); MEAN CORPUSCULAR VOLUME 88.6 fl (80.0-94.0); MONOCYTES # (AUTO) 0.7 K/uL (0.4-2.0); MONOCYTES % (AUTO) 9.6 (0-10); NEUTROPHILS # (AUTO) 4.3 K/ul (2.0-6.9); NEUTROPHILS % (AUTO) 62.4; PLATELET COUNT 192 10^3/uL (140-440); WHITE BLOOD COUNT 6.97 K/ul (4.2-10.2)
[2017-02-20 13:22] LABS: ALBUMIN 3.8 g/dL (3.4-5.0); ALBUMIN/GLOBULIN RATIO 1.23; ANION GAP 14.5; BILIRUBIN,TOTAL 0.43 mg/dL (0.00-1.20); BUN/CREATININE RATIO 10.84; CALCIUM 9.3 mg/dL (8.2-10.2); CREATININE 0.83 mg/dL (0.60-1.10); POTASSIUM 3.5 mmol/L (3.5-5.1); TOTAL PROTEIN 6.9 g/dL (6.4-8.2)
--- NOTE | 2017-02-20 15:04 | ED.PDOC ---
General ED Provider: Dr. URMILA TRAMMELL Chief Complaint: Abdominal Pain Stated Complaint: Patient has a history of chronic abdominal pain with crohn's disease. He states he has an apt with pain managment soon. States that his abdominal pain got worse this morning. Time Seen by Physician: 13:00 Mode of Arrival: Walk-In Information Source: Patient Exam Limitations: No limitations Nursing and Triage Documentation Reviewed and Agree: Yes Review of Systems - Review Of Systems Constitutional: Reports: No symptoms Eyes: Reports: No symptoms Ears, Nose, Mouth, Throat: Reports: No symptoms Respiratory: Reports: No symptoms Cardiac: Reports: No symptoms GI: Reports: Abdominal pain, Nausea : Reports: No symptoms Musculoskeletal: Reports: No symptoms Skin: Reports: No symptoms Neurological: Reports: No symptoms Endocrine: Reports: No symptoms Hematologic/Lymphatic: Reports: No symptoms All Other Systems: Reviewed and Negative Past Medical History - Past Medical History Previously Healthy: Yes Endocrine: Reports: Hypothyroid, Dyslipidemia Cardiovascular: Reports: None Respiratory: Reports: None Hematological: Reports: None Gastrointestinal: Reports: GERD, Crohn's, Pancreatitis Genitourinary: Reports: Kidney stones Neuro/Psych: Reports: Depression Musculoskeletal: Reports: None Cancer: Reports: None - Surgical History General Surgical History: Reports: Other (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, INTESTINAL RESECTION) - Family History Family History: Reports: Unknown - Social History Smoking Status: Never smoker Hx Substance Use: No Alcohol Screening: None - Immunizations Influenza Vaccine within 12 Months: Yes Pneumococcal Vaccine up to Date: Yes Physical Exam - Physical Exam Appearance: Ill-appearing Ill-appearing: Mild Pain Distress: Severe Eyes: DISHA, EOMI, Conjunctiva clear Neck: Supple Respiratory: Airway patent, Breath sounds clear, Breath sounds equal, Respirations nonlabored Cardiovascular: Tachycardia GI/: Soft, Nontender, No masses, Bowel sounds normal, No Organomegaly Musculoskeletal: Normal strength, ROM intact, No edema, No calf tenderness Skin: Warm, Dry, Normal color Neurological: Sensation intact, Motor intact, Reflexes intact, Cranial nerves intact, Alert, Oriented Psychiatric: Anxious Critical Care Note - Critical Care Note Total Time (mins): 0 Comments: Refused to take Toradol states it does not work. Course - Course Hematology/Chemistry: 02/20/17 12:57 02/20/17 12:57 Orders, Labs, Meds: Lab Review 02/20/17 02/20/17 12:57 12:57 WBC 6.97 RBC 3.70 L Hgb 11.8 L Hct 32.8 L MCV 88.6 MCH 31.9 H MCHC 36.0 H RDW Coeff of Svitlana 12.7 Plt Count 192 Immature Gran % (Auto) 0.7 Neut % (Auto) 62.4 Lymph % (Auto) 25.8 [place] % (Auto) 9.6 Eos % (Auto) 1.4 Baso % (Auto) 0.1 Immature Gran # (Auto) 0.1 Neut # 4.3 Lymph # 1.8 [place] # 0.7 Eos # 0.1 Baso # 0.0 Sodium 141 Potassium 3.5 Chloride 107 Carbon Dioxide 23 Anion Gap 14.5 BUN 9 Creatinine 0.83 Estimated GFR (MDRD) 107.00 BUN/Creatinine Ratio 10.84 Glucose 90 Calcium 9.3 Total Bilirubin 0.43 AST 18 ALT 33 Alkaline Phosphatase 74 Total Protein 6.9 Albumin 3.8 Globulin 3.1 Albumin/Globulin Ratio 1.23 Amylase 65 Lipase 23 Orders Category Date Time Status AMYLASE Stat LAB 02/20/17 12:57 Completed CBC W/ AUTO DIFF Stat LAB 02/20/17 12:57 Completed COMPREHENSIVE METABOLIC PANEL Stat LAB 02/20/17 12:57 Completed LIPASE Stat LAB 02/20/17 12:57 Completed Ketorolac Tromethamine [Toradol] MEDS 02/20/17 12:47 Discontinued 60 mg IM ONCE STA Ondansetron HCl/Pf [Zofran 4 mg/2 ml] MEDS 02/20/17 12:49 Discontinued 4 mg IM ONCE STA Medications Discontinued Medications Generic Name Dose Route Start Last Admin Trade Name Esperanza PRN Reason Stop Dose Admin Ketorolac Tromethamine 60 mg 02/20/17 12:47 02/20/17 13:06 Toradol IM 02/20/17 12:48 Not Given ONCE STA Ondansetron HCl 4 mg 02/20/17 12:49 02/20/17 13:05 Zofran 4 Mg/2 Ml IM 02/20/17 12:50 4 mg ONCE STA Administration Vital Signs: Temp Pulse Resp BP Pulse Ox 02/20/17 12:11 98.4 F 109 H 18 131/81 98 Departure - Departure Time of Disposition: 15:02 Disposition: HOME SELF-CARE Discharge Problem: Abdominal pain Instructions: Abdominal Pain (ED) Condition: Stable Pt referred to PMD for follow-up: Yes Additional Instructions: continue home medications Follow up with your primary for chronic pain Follow up with Pain management push fluids Take home nausea medications. Allergies/Adverse Reactions: Allergies No Known Allergies Allergy (Verified 02/20/17 12:15) Home Medications: Ambulatory Orders Ondansetron HCl [Zofran] 4 mg PO PRN PRN 10/03/16 Sulfasalazine 500 mg PO TID 11/27/16 Metronidazole [Flagyl] 500 mg PO BID PRN 01/23/17 Cyclobenzaprine HCl [Flexeril] 5 mg PO DAILY PRN 02/13/17 Gabapentin [Neurontin] 300 mg PO TID 02/13/17 Tramadol HCl [Ultram] 50 mg PO Q6H PRN #14 tablet 02/13/17 Disposition Discussed With: Patient
== END 2017-02-20 15:10 | disposition home or self-care (01) ==
LOC: ED 12:11
DX: R10.9 Unspecified abdominal pain (principal); G89.29 Other chronic pain; K50.90 Crohn's disease, unspecified, without complications
CPT/HCPCS: 36415; 80053; 82150; 83690; 85025; 96372; 99282

== ENCOUNTER 2017-02-21 06:33 | Emergency (ER) ==
[2017-02-21 06:36] VITALS: BP 128/86; TEMP 97.6; BMI 28.3
[2017-02-21] MEDS ORDERED: MORPHINE 2 MG/ML SYRINGE IVP STA (06:51)
[2017-02-21] MEDS ORDERED: PHENERGAN 25 MG/ML VIAL IM STA (06:52)
--- NOTE | 2017-02-21 06:55 | ED.PDOC ---
General Stated Complaint: im hurting Time Seen by Physician: 06:35 Mode of Arrival: Walk-In Information Source: Patient Exam Limitations: No limitations Nursing and Triage Documentation Reviewed and Agree: Yes <STEFANIROCCOJULEE - Last Filed: 02/21/17 06:52> <URMILA TRAMMELL - Last Filed: 02/21/17 07:40> ED Provider: Dr. URMILA TRAMMELL Chief Complaint: Abdominal Pain GI Complaint Exam - Abdominal Pain Complaint/Exam Onset: Gradual Duration: several hours Symptoms Are: Still present Timing: Constant Initial Severity: Mild Current Severity: Moderate Location of Pain: Diffuse Character: Reports: Dull, Aching, Cramping, Colicky Aggravating: Reports: None Alleviating: Reports: None Associated Signs and Symptoms: Reports: Nausea. Denies: Diaphoresis, Fever, Cough, Chest pain, Dizziness, Back pain, Constipation, Blood in stool, Dysuria, Urinary frequency, Decreased urine output, Decreased appetite, Discharge, Vomiting, Diarrhea, Decreased activity AAA Risk Factors: Reports: None Cardiac Risk Factors: Reports: None Testicular Torsion Risk Factors: Reports: None Surgical Obstruction Risk Factors: Reports: Colicky abdominal pain Abdominal Findings: Present: None Differential Diagnoses: Constipation, Diverticulitis, Pancreatitis Quality Indicator For Non-Traumatic Chest Pain/Syncope: EKG Performed <JULEE DELANEY Last Filed: 02/21/17 06:52> Review of Systems - Review Of Systems Constitutional: Reports: No symptoms Eyes: Reports: No symptoms Ears, Nose, Mouth, Throat: Reports: No symptoms Respiratory: Reports: No symptoms Cardiac: Reports: No symptoms GI: Reports: Abdominal pain, Nausea : Reports: No symptoms Musculoskeletal: Reports: No symptoms Skin: Reports: No symptoms Neurological: Reports: No symptoms Endocrine: Reports: No symptoms Hematologic/Lymphatic: Reports: No symptoms All Other Systems: Reviewed and Negative <JULEE DELANEY Last Filed: 02/21/17 06:52> Past Medical History - Past Medical History Previously Healthy: Yes Endocrine: Reports: Hypothyroid, Dyslipidemia Cardiovascular: Reports: None Respiratory: Reports: None Hematological: Reports: None Gastrointestinal: Reports: GERD, Crohn's, Pancreatitis Genitourinary: Reports: Kidney stones Neuro/Psych: Reports: Depression Musculoskeletal: Reports: None Cancer: Reports: None - Surgical History General Surgical History: Reports: Other (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, INTESTINAL RESECTION) - Family History Family History: Reports: Unknown - Social History Smoking Status: Never smoker Hx Substance Use: No Alcohol Screening: None - Immunizations Tetanus Shot up to Date: Yes Influenza Vaccine within 12 Months: Yes Pneumococcal Vaccine up to Date: Yes <JULEE DELANEY - Last Filed: 02/21/17 06:52> Physical Exam - Physical Exam Appearance: Well-appearing Pain Distress: Moderate Eyes: DISHA, EOMI, Conjunctiva clear ENT: Ears normal, Nose normal, Oropharynx normal Neck: Supple Respiratory: Airway patent, Breath sounds clear, Breath sounds equal, Respirations nonlabored Cardiovascular: RRR, Pulses normal, No rub, No murmur GI/: Soft, No masses, Bowel sounds normal, No Organomegaly, Tender Musculoskeletal: Normal strength, ROM intact, No edema, No calf tenderness Skin: Warm, Dry, Normal color Neurological: Sensation intact, Motor intact, Reflexes intact, Cranial nerves intact, Alert, Oriented Psychiatric: Affect appropriate, Mood appropriate <JULEE DELANEY - Last Filed: 02/21/17 06:52> Interpretation - Radiology Interpretation Radiology Interpretation By: Radiologist Radiology Results: No acute changes Exam Interpreted: CT Scan (abdomem and pelvis ) <URMILA TRAMMELL - Last Filed: 02/21/17 07:40> Physician Notification - Case Discussed Physician Notified: dr [email or web address] Time of Notification: 07:00 <JULEE DELANEY - Last Filed: 02/21/17 06:52> Critical Care Note - Critical Care Note Total Time (mins): 0 <URMILA TRAMMELL - Last Filed: 02/21/17 07:40> Course - Course Hematology/Chemistry: 02/21/17 07:10 <URMILA TRAMMELL - Last Filed: 02/21/17 07:40> - Course Orders, Labs, Meds: Lab Review 02/21/17 07:10 WBC 6.68 RBC 4.00 L Hgb 12.6 L Hct 35.8 L MCV 89.5 MCH 31.5 H MCHC 35.2 RDW Coeff of Svitlana 12.8 Plt Count 208 Immature Gran % (Auto) 0.6 Neut % (Auto) 55.8 Lymph % (Auto) 31.1 [place] % (Auto) 11.1 H Eos % (Auto) 1.3 Baso % (Auto) 0.1 Immature Gran # (Auto) 0.0 Neut # 3.7 Lymph # 2.1 [place] # 0.7 Eos # 0.1 Baso # 0.0 Orders Category Date Time Status EKG-(ED ONLY) Stat CARDIO 02/21/17 06:50 Completed AMYLASE Stat LAB 02/21/17 07:10 Received CBC W/ AUTO DIFF Stat LAB 02/21/17 07:10 Completed COMPREHENSIVE METABOLIC PANEL Stat LAB 02/21/17 07:10 Received CREATINE KINASE Stat LAB 02/21/17 07:10 Received LIPASE Stat LAB 02/21/17 07:10 Received TROPONIN I Stat LAB 02/21/17 07:10 Received URINALYSIS C & S IF INDICATED Stat LAB 02/21/17 06:50 Uncollected Morphine Sulfate [Morphine 2 mg/ml Syringe] MEDS 02/21/17 06:58 Discontinued 4 mg IM ONCE STA Promethazine HCl [Phenergan 25 mg/ml Vial] MEDS 02/21/17 06:52 Discontinued 25 mg IM ONCE STA CT ABDOMEN/PELVIS WO CONTRAST Stat RADS 02/21/17 06:51 Completed Medications Discontinued Medications Generic Name Dose Route Start Last Admin Trade Name Esperanza PRN Reason Stop Dose Admin Morphine Sulfate 4 mg 02/21/17 06:58 02/21/17 07:13 Morphine 2 Mg/Ml Syringe IM 02/21/17 06:59 4 mg ONCE STA Administration Promethazine HCl 25 mg 02/21/17 06:52 02/21/17 07:10 Phenergan 25 Mg/Ml Vial IM 02/21/17 06:53 25 mg ONCE STA Administration Vital Signs: Temp Pulse Resp BP Pulse Ox 02/21/17 06:33 97.6 F 84 16 128/86 97 Departure <JULEE DELANEY - Last Filed: 02/21/17 06:52> - Departure Time of Disposition: 07:38 Pt referred to PMD for follow-up: Yes (1-2 days ) Disposition Discussed With: Patient <URMILA TRAMMELL - Last Filed: 02/21/17 07:40> - Departure Disposition: HOME SELF-CARE Discharge Problem: Chronic abdominal pain Instructions: Chronic Abdominal Pain (ED) Condition: Stable Additional Instructions: Follow up with Pain management and GI doctors Allergies/Adverse Reactions: Allergies No Known Allergies Allergy (Verified 02/20/17 12:15) Home Medications: Ambulatory Orders Ondansetron HCl [Zofran] 4 mg PO PRN PRN 10/03/16 Sulfasalazine 500 mg PO TID 11/27/16 Metronidazole [Flagyl] 500 mg PO BID PRN 01/23/17 Cyclobenzaprine HCl [Flexeril] 5 mg PO DAILY PRN 02/13/17 Gabapentin [Neurontin] 300 mg PO TID 02/13/17 Tramadol HCl [Ultram] 50 mg PO Q6H PRN #14 tablet 02/13/17
[2017-02-21] MEDS ORDERED: MORPHINE 2 MG/ML SYRINGE IM STA (06:58)
[2017-02-21 07:15] LABS: BASOPHILS % (AUTO) 0.1 % (0.0-3.0); EOSINOPHILS # (AUTO) 0.1 K/ul (0.0-0.7); EOSINOPHILS % (AUTO) 1.3 % (0.0-7.0); HEMATOCRIT 35.8 % (42.0-52.0); HEMOGLOBIN 12.6 g/dl (14.0-18.0); IMMATURE GRANULOCYTE % (AUTO) 0.6 % (0.0-5.0); LYMPHOCYTES # (AUTO) 2.1 K/uL (0.60-3.4); LYMPHOCYTES % (AUTO) 31.1 (10.0-50.0); MEAN CORPUSCULAR HEMOGLOBIN 31.5 pg (27.0-31.0); MEAN CORPUSCULAR HGB CONC 35.2 (31.8-35.4); MEAN CORPUSCULAR VOLUME 89.5 fl (80.0-94.0); MONOCYTES # (AUTO) 0.7 K/uL (0.4-2.0); MONOCYTES % (AUTO) 11.1 (0-10); NEUTROPHILS # (AUTO) 3.7 K/ul (2.0-6.9); NEUTROPHILS % (AUTO) 55.8; PLATELET COUNT 208 10^3/uL (140-440); WHITE BLOOD COUNT 6.68 K/ul (4.2-10.2)
--- NOTE | 2017-02-21 07:21 | CT ---
EXAM: CT abdomen pelvis without contrast HISTORY: Abdominal pain and nausea with history of Crohn disease COMPARISON: CT abdomen pelvis 02/02/2017 with numerous priors TECHNIQUE: Serial axial images of the abdomen pelvis were performed from the lung bases through the inferior pelvis without contrast. These were viewed in multiple planes. FINDINGS: The lung bases demonstrate mild small airway thickening. Evaluation is limited due to lack of contrast. The liver and gallbladder are unremarkable. The adre nal glands are normal. The kidneys are unchanged from prior exam with low attenuation lesions, stabl e in comparison to prior contrast enhanced study. The spleen is normal. The adrenal glands are norm al. Pancreas is normal. Stomach is minimally distended. There is no free air or free fluid. There is postsurgical change in the colon in the right anterior abdomen with no evidence of obstructi on, and anastomotic leak or stenosis. There is no visualized mass in the abdomen or pelvis. There a re few scattered mesenteric lymph nodes. Urinary bladder is nondistended. Prostate is unremarkable. There is no free air or free fluid. The osseous structures are unchanged. IMPRESSION: 1. No acute intra-abdominal or pelvic process. There is no CT evidence of Crohn's flare-up. 2. Changes consistent with a partial right colectomy with known anastomotic stenosis or evidence of obstruction. 3. Scattered mesenteric lymph nodes are likely reactive.
[2017-02-21 07:42] LABS: ALANINE AMINOTRANSFERASE 32 U/L (12-78); ALBUMIN 3.9 g/dL (3.4-5.0); ALBUMIN/GLOBULIN RATIO 1.11; ALKALINE PHOSPHATASE 79 U/L (50-136); AMYLASE 72 U/L (25-115); ANION GAP 12.7; ASPARTATE AMINO TRANSFERASE 18 U/L (15-37); BILIRUBIN,TOTAL 0.31 mg/dL (0.00-1.20); BLOOD UREA NITROGEN 8 mg/dL (7-18); BUN/CREATININE RATIO 9.09; CALCIUM 9.4 mg/dL (8.2-10.2); CARBON DIOXIDE 21 mmol/L (21-32); CHLORIDE 110 mmol/L (98-107); CREATINE KINASE 65 U/L; CREATININE 0.88 mg/dL (0.60-1.10); GLUCOSE 104 mg/dL (70-100); LIPASE 39 U/L (8-78); POTASSIUM 3.7 mmol/L (3.5-5.1); SODIUM 140 mmol/L (136-145); TOTAL PROTEIN 7.4 g/dL (6.4-8.2)
== END 2017-02-21 07:51 | disposition home or self-care (01) ==
LOC: ED 06:33
DX: R10.9 Unspecified abdominal pain (principal); G89.29 Other chronic pain; Z87.19 Personal history of other diseases of the digestive system
CPT/HCPCS: 36415; 80053; 82150; 82550; 83690; 84484; 85025; 93005; 93010; 96372; 99283

== ENCOUNTER 2017-03-06 11:43 | Emergency (ER) ==
[2017-03-06 11:48] VITALS: BP 111/79; TEMP 97.7; BMI 25.0
--- NOTE | 2017-03-06 12:36 | CT ---
EXAM: CT lumbar spine without intravenous contrast 03/06/2017. Sagittal and coronal reformatted ruy ges obtained HISTORY: Back pain COMPARISON: 02/21/2017 FINDINGS: A normal lumbar lordosis is maintained. The vertebral bodies appear intact without evidenc e of fracture. 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 This appears stable. There is no evidence of acute fracture or subluxation at any level. The facet joints align normally. Minimal degenerative disc disease. Small posterior disc bulge flattens The thecal sac at L4-L5 and L 5-S1. IMPRESSION: 1. 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 2. Minimal degenerative disc disease. 3. No acute osseous abnormality.
--- NOTE | 2017-03-06 13:32 | ED.PDOC ---
General ED Provider: Dr. SHARAN MCHUGH Chief Complaint: Back Pain Stated Complaint: back pain lumbar Time Seen by Physician: 12:00 (no trauma) Mode of Arrival: Walk-In Information Source: Patient Exam Limitations: No limitations Primary Care Provider: JARAD GARCIA Nursing and Triage Documentation Reviewed and Agree: Yes Reviewed sepsis parameters & appropriate labs ordered?: Yes System Inflammatory Response Syndrome: Not Applicable Sepsis Protocol: For patient's 13 years and over: Temp is 96.8 and below OR 101 and greater Pulse >90 BPM Resp >20/minute Acutely Altered Mental Status Are patient's symptoms suggestive of a new infection, such as: -Pneumonia -Skin, Soft Tissue -Endocarditis -UTI -Bone, Joint Infection -Implantable Device -Acute Abdominal Infection -Wound Infection -Meningitis -Blood Stream Catheter Infection -Unknown Musculoskeletal Complaint Exam - Back Pain Complaint/Exam Mechanism of Injury: Reports: No known trauma Onset/Duration: 1 week Symptoms Are: Still present Timing: Intermittent Episodes Lasting: Days Initial Severity: Mild Current Severity: Mild Location: Reports: Discrete Character: Reports: Aching Aggravating: Reports: None Alleviating: Reports: None Associated Signs and Symptoms: Denies: Swelling, Redness, Bruising, Fever, Weakness, Numbness, Tingling, Abdominal pain, Flank pain, Bladder incontinence, Bowel incontinence, Weight loss, Pain with weight bearing Related History: Reports: Similar episode TAD Risk Factors: Reports: None Cauda Equina Risk Factors: Reports: None Epidural Abcess Risk Factors: Reports: None Related Surgical History: Reports: None Focal Tenderness: No Paraspinal Muscle Tenderness: No Paraspinal Muscle Spasm: No Scoliosis: No Lordosis: No Kyphosis: No SLR Test: Right Negative, Left Negative Hip Motion Testing Pain: Right Negative, Left Negative Focal Weakness: Present: None Focal Sensory Loss: Present: None Gait: Present: Normal Differential Diagnoses: Strain, Sprain Review of Systems - Review Of Systems Constitutional: Reports: No symptoms Eyes: Reports: No symptoms Ears, Nose, Mouth, Throat: Reports: No symptoms Respiratory: Reports: No symptoms Cardiac: Reports: No symptoms GI: Reports: No symptoms : Reports: No symptoms Musculoskeletal: Reports: Back pain Skin: Reports: No symptoms Neurological: Reports: No symptoms Endocrine: Reports: No symptoms Hematologic/Lymphatic: Reports: No symptoms All Other Systems: Reviewed and Negative Past Medical History - Past Medical History Previously Healthy: Yes Endocrine: Reports: Hypothyroid, Dyslipidemia Cardiovascular: Reports: None Respiratory: Reports: None Hematological: Reports: None Gastrointestinal: Reports: GERD, Crohn's, Pancreatitis Genitourinary: Reports: Kidney stones Neuro/Psych: Reports: Depression Musculoskeletal: Reports: None Cancer: Reports: None - Surgical History General Surgical History: Reports: Other (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, INTESTINAL RESECTION) - Family History Family History: Reports: Unknown - Social History Smoking Status: Never smoker Hx Substance Use: No Alcohol Screening: None - Immunizations Tetanus Shot up to Date: Yes Influenza Vaccine within 12 Months: Yes Pneumococcal Vaccine up to Date: Yes Physical Exam - Physical Exam Appearance: Well-appearing, No pain distress, Well-nourished Eyes: DISHA, EOMI, Conjunctiva clear ENT: Ears normal, Nose normal, Oropharynx normal Respiratory: Airway patent, Breath sounds clear, Breath sounds equal, Respirations nonlabored Cardiovascular: RRR, Pulses normal, No rub, No murmur GI/: Soft, Nontender, No masses, Bowel sounds normal, No Organomegaly Musculoskeletal: Normal strength, ROM intact, No edema, No calf tenderness Skin: Warm, Dry, Normal color Neurological: Sensation intact, Motor intact, Reflexes intact, Cranial nerves intact, Alert, Oriented Psychiatric: Affect appropriate, Mood appropriate Interpretation - Radiology Interpretation Radiology Interpretation By: Radiologist Radiology Results: No acute changes Critical Care Note - Critical Care Note Total Time (mins): 0 Course - Course Hematology/Chemistry: 03/06/17 11:55 03/06/17 11:55 Orders, Labs, Meds: Lab Review 03/06/17 03/06/17 11:55 11:55 WBC 6.29 RBC 3.93 L Hgb 12.4 L Hct 34.6 L MCV 88.0 MCH 31.6 H MCHC 35.8 H RDW Coeff of Svitlana 12.3 Plt Count 200 Immature Gran % (Auto) 0.3 Neut % (Auto) 56.9 Lymph % (Auto) 30.2 Martin % (Auto) 10.8 H Eos % (Auto) 1.6 Baso % (Auto) 0.2 Immature Gran # (Auto) 0.0 Neut # 3.6 Lymph # 1.9 Martin # 0.7 Eos # 0.1 Baso # 0.0 Sodium 141 Potassium 3.2 L Chloride 108 H Carbon Dioxide 22 Anion Gap 14.2 BUN 9 Creatinine 0.82 Estimated GFR (MDRD) 108.00 BUN/Creatinine Ratio 10.97 Glucose 112 H Calcium 9.3 Total Bilirubin 0.3 AST 16 ALT 27 Alkaline Phosphatase 91 Total Protein 7.4 Albumin 3.9 Globulin 3.5 Albumin/Globulin Ratio 1.11 Orders Category Date Time Status CBC W/ AUTO DIFF Stat LAB 03/06/17 11:55 Completed COMPREHENSIVE METABOLIC PANEL Stat LAB 03/06/17 11:[address] LUMBAR SPINE W/O CONTRAST Stat RADS 03/06/17 11:47 Completed Vital Signs: Temp Pulse Resp BP Pulse Ox 03/06/17 11:45 97.7 F 110 H 18 111/79 98 Departure - Departure Time of Disposition: 13:31 Disposition: HOME SELF-CARE Discharge Problem: Low back pain Qualifiers: Chronicity: acute Sciatica presence: without sciatica Instructions: Low Back Strain (ED) Condition: Good Pt referred to PMD for follow-up: Yes Additional Instructions: Please call your Family Physician as soon as possible to schedule a follow-up appointment. Allergies/Adverse Reactions: Allergies No Known Allergies Allergy (Verified 03/06/17 11:45) Home Medications: Ambulatory Orders Sulfasalazine 500 mg PO TID 11/27/16 Metronidazole [Flagyl] 500 mg PO BID PRN 01/23/17 Cyclobenzaprine HCl [Flexeril] 5 mg PO DAILY PRN 02/13/17 Gabapentin [Neurontin] 300 mg PO TID 02/13/17
== END 2017-03-06 13:30 | disposition home or self-care (01) ==
LOC: ED 11:43
DX: M54.5 Low back pain (principal)
CPT/HCPCS: 36415; 80053; 85025; 99283

== ENCOUNTER 2017-03-20 14:39 | Emergency (ER) ==
[2017-03-20 14:40] VITALS: BMI 25.0
[2017-03-20 14:49] VITALS: BP 109/69; TEMP 98.5
[2017-03-20] MEDS ORDERED: DUONEB NEB STA (16:20)
--- NOTE | 2017-03-20 16:41 | ED.PDOC ---
General ED Provider: Dr. URMILA TRAMMELL Chief Complaint: Respiratory Complaint Stated Complaint: patient states he has a sore throat and a rash on the left popliteal area and Right flank area. Time Seen by Physician: 16:00 Mode of Arrival: Walk-In Information Source: Patient Nursing and Triage Documentation Reviewed and Agree: Yes Reviewed sepsis parameters & appropriate labs ordered?: Yes System Inflammatory Response Syndrome: Not Applicable Sepsis Protocol: For patient's 13 years and over: Temp is 96.8 and below OR 101 and greater Pulse >90 BPM Resp >20/minute Acutely Altered Mental Status Are patient's symptoms suggestive of a new infection, such as: -Pneumonia -Skin, Soft Tissue -Endocarditis -UTI -Bone, Joint Infection -Implantable Device -Acute Abdominal Infection -Wound Infection -Meningitis -Blood Stream Catheter Infection -Unknown System Inflammatory Response Syndrome: Not Applicable EENT Complaint Exam - Throat Complaint/Exam Onset/Duration: 2 days Symptoms Are: Still present Timimg: Constant Initial Severity: Moderate Current Severity: Moderate Associated Signs and Symptoms: Reports: Dysphagia. Denies: Fever, Drooling, Foreign body sensation, Chills, Cough, Wheezing, Hoarseness, Sinus discomfort, Nasal congestion, Difficulty breathing, Lethargy, Irritability, Decreased activity, Vomiting, Diarrhea, Decreased hearing, Ear drainage Uvula Midline: No Ruth-tonsillar Fluctuence: No Scarlatinaform Rash Present: No Lesions: Absent: Lip, Gums, Tongue, Buccal Mucosa, Pharynx Exanthem: Absent: Lip, Gums, Tongue, Buccal Mucosa, Pharynx Vesicles: Absent: Lip, Gums, Tongue, Buccal Mucosa, Pharynx Stridor Present: No Sinus Tenderness Present: No Tonsillar Hypertrophy Present: No Tonsillar Exudate Present: No Ruth-tonsillar Swelling Present: No Review of Systems - Review Of Systems Constitutional: Reports: No symptoms Eyes: Reports: No symptoms Ears, Nose, Mouth, Throat: Reports: Throat pain Respiratory: Reports: Cough, Short of air, Wheezing Cardiac: Reports: No symptoms GI: Reports: No symptoms : Reports: No symptoms Musculoskeletal: Reports: No symptoms Skin: Reports: Rash (Left Popliteal and right abdominal area. ) Neurological: Reports: No symptoms Endocrine: Reports: No symptoms Hematologic/Lymphatic: Reports: No symptoms All Other Systems: Reviewed and Negative Past Medical History - Past Medical History Previously Healthy: Yes Endocrine: Reports: Hypothyroid, Dyslipidemia Cardiovascular: Reports: None Respiratory: Reports: None Hematological: Reports: None Gastrointestinal: Reports: GERD, Crohn's, Pancreatitis Genitourinary: Reports: Kidney stones Neuro/Psych: Reports: Depression Musculoskeletal: Reports: None Cancer: Reports: None - Surgical History General Surgical History: Reports: Other (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, INTESTINAL RESECTION) - Family History Family History: Reports: Unknown - Social History Smoking Status: Never smoker Hx Substance Use: No Alcohol Screening: None - Immunizations Influenza Vaccine within 12 Months: Yes Pneumococcal Vaccine up to Date: Yes Physical Exam - Physical Exam Appearance: Well-appearing, No pain distress, Well-nourished Eyes: DISHA, EOMI, Conjunctiva clear ENT: Erythema Respiratory: Airway patent, Breath sounds clear, Breath sounds equal, Respirations nonlabored Cardiovascular: RRR, Pulses normal, No rub, No murmur GI/: Soft, Nontender, No masses, Bowel sounds normal, No Organomegaly Musculoskeletal: Normal strength, ROM intact, No edema, No calf tenderness Skin: Warm, Dry (scally rash on the Left Popliteal and right abdominal area. ) Neurological: Sensation intact, Motor intact, Reflexes intact, Cranial nerves intact, Alert, Oriented Psychiatric: Affect appropriate, Mood appropriate Critical Care Note - Critical Care Note Total Time (mins): 0 Course - Course Orders, Labs, Meds: Lab Review 03/20/17 03/20/17 15:55 16:23 Urine Color Yellow Urine Clarity Clear Urine pH 6.5 Ur Specific [place] 1.015 Urine Protein Negative Urine Glucose (UA) Negative Urine Ketones Negative Urine Blood Trace-intact Urine Nitrite Negative Urine Bilirubin Negative Urine Urobilinogen 0.2 Ur Leukocyte Esterase Negative Urine Microscopic RBC 2-5 Ur Squamous Epith Cells Not present Influenza A (Rapid) Negative by naat Influenza B (Rapid) Negative by naat Orders Category Date Time Status NEBULIZER TREATMENT Stat CARDIO 03/20/17 16:20 Ordered FLU A & B RAPID TEST [MOLECULAR FLU A/B] Stat LAB 03/20/17 15:55 Completed RAPID STREP SCREEN [MOLECULAR GROUP A STREP] Stat LAB 03/20/17 15:55 Completed UA [URINALYSIS C & S IF INDICATED] Stat LAB 03/20/17 16:23 Completed Ipratropium/Albuterol Neb [Duoneb] MEDS 03/20/17 16:20 Discontinued 1 vial NEB ONCE STA Medications Discontinued Medications Generic Name Dose Route Start Last Admin Trade Name Esperanza PRN Reason Stop Dose Admin Albuterol/Ipratropium 1 vial 03/20/17 16:20 Duoneb NEB 03/20/17 16:21 ONCE STA Vital Signs: Temp Pulse Resp BP Pulse Ox 03/20/17 14:46 98.5 F 92 H 16 109/69 99 Departure - Departure Time of Disposition: 16:44 Disposition: HOME SELF-CARE Discharge Problem: Dermatitis Pharyngitis Qualifiers: Pharyngitis/tonsillitis etiology: unspecified etiology Qualified Code(s): J02.9 - Acute pharyngitis, unspecified Instructions: Pharyngitis (ED), Dermatitis (ED) Condition: Stable Pt referred to PMD for follow-up: Yes Additional Instructions: take Medications as prescribed Follow up with PCP in 3 days Prescriptions: Terbinafine HCl [Lamisil At] 30 gm TP BID #30 cream..g. Allergies/Adverse Reactions: Allergies No Known Allergies Allergy (Verified 03/20/17 14:49) Home Medications: Ambulatory Orders Sulfasalazine 500 mg PO TID 11/27/16 Metronidazole [Flagyl] 500 mg PO BID PRN 01/23/17 Cyclobenzaprine HCl [Flexeril] 5 mg PO DAILY PRN 02/13/17 Gabapentin [Neurontin] 300 mg PO TID 02/13/17 Terbinafine HCl [Lamisil At] 30 gm TP BID #30 cream..g. 03/20/17 Disposition Discussed With: Patient
== END 2017-03-20 17:01 | disposition home or self-care (01) ==
LOC: ED 14:39
DX: J02.9 Acute pharyngitis, unspecified (principal); L30.9 Dermatitis, unspecified; R05 Cough; R06.02 Shortness of breath; R06.2 Wheezing
CPT/HCPCS: 81001; 87502; 87651; 94640; 99283

== ENCOUNTER 2017-03-28 08:32 | Emergency (ER) ==
[2017-03-28 08:37] VITALS: BP 136/81; BMI 24.6
--- NOTE | 2017-03-28 09:10 | ED.PDOC ---
General ED Provider: Dr. JULEE ACE Chief Complaint: Chest Pain Stated Complaint: Abdominal cramping/pain: Chronic due to Crohns disease. Has taken med at home. States only taking tylenol. When questions about his current Rx [place]-aknowledged but states only took 1 yesterday yesterday did not help. States under care of Dr Martel for GI care and take Sufasalazline since can not get Remicade due to not DPA coverage. Time Seen by Physician: 08:50 Mode of Arrival: Walk-In Information Source: Patient Exam Limitations: No limitations Nursing and Triage Documentation Reviewed and Agree: Yes Reviewed sepsis parameters & appropriate labs ordered?: Yes System Inflammatory Response Syndrome: Not Applicable Sepsis Protocol: For patient's 13 years and over: Temp is 96.8 and below OR 101 and greater Pulse >90 BPM Resp >20/minute Acutely Altered Mental Status Are patient's symptoms suggestive of a new infection, such as: -Pneumonia -Skin, Soft Tissue -Endocarditis -UTI -Bone, Joint Infection -Implantable Device -Acute Abdominal Infection -Wound Infection -Meningitis -Blood Stream Catheter Infection -Unknown System Inflammatory Response Syndrome: Not Applicable GI Complaint Exam - Abdominal Pain Complaint/Exam Onset: Gradual Duration: Chronic - worsened since last night Symptoms Are: Still present Timing: Intermittent Initial Severity: Moderate Current Severity: Moderate Location of Pain: RLQ Radiates To: Denies: Chest, Back, Flank, LLQ, RLQ, Inguinal Character: Reports: Aching, Cramping Aggravating: Reports: None Alleviating: Reports: Rest, Medication (Has Rx [place]) Associated Signs and Symptoms: Reports: Decreased urine output, Nausea, Diarrhea. Denies: Vomiting Related History: Reports: Similar episode Review of Systems - Review Of Systems Constitutional: Reports: No symptoms Eyes: Reports: No symptoms Ears, Nose, Mouth, Throat: Reports: No symptoms Respiratory: Reports: No symptoms Cardiac: Reports: No symptoms GI: Reports: Nausea, Other (abdominal cramping) : Reports: No symptoms Musculoskeletal: Reports: No symptoms Skin: Reports: No symptoms Neurological: Reports: No symptoms Endocrine: Reports: No symptoms Hematologic/Lymphatic: Reports: No symptoms All Other Systems: Reviewed and Negative Past Medical History - Past Medical History Previously Healthy: Yes Endocrine: Reports: Hypothyroid, Dyslipidemia Cardiovascular: Reports: None Respiratory: Reports: None Hematological: Reports: None Gastrointestinal: Reports: GERD, Crohn's, Pancreatitis Genitourinary: Reports: Kidney stones Neuro/Psych: Reports: Depression Musculoskeletal: Reports: None Cancer: Reports: None - Surgical History General Surgical History: Reports: Other (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, INTESTINAL RESECTION) - Family History Family History: Reports: Unknown - Social History Smoking Status: Never smoker Hx Substance Use: No Alcohol Screening: None - Immunizations Tetanus Shot up to Date: No Influenza Vaccine within 12 Months: Yes Pneumococcal Vaccine up to Date: Yes Physical Exam - Physical Exam Appearance: Well-appearing Ill-appearing: None Pain Distress: Mild Eyes: DISHA, EOMI, Conjunctiva clear ENT: Nose normal Neck: Supple Respiratory: Airway patent, Breath sounds clear, Breath sounds equal Cardiovascular: RRR, Pulses normal, No rub, No murmur GI/: Soft, Nontender (No involuntary guarding or rebound; BS active), No masses, Bowel sounds normal, No Organomegaly, Tender (Minimal; no involuntary guarding or rebound tenderness) Musculoskeletal: Normal strength, ROM intact, No edema Skin: Warm, Dry, Normal color Neurological: Sensation intact, Motor intact Psychiatric: Affect appropriate, Anxious Re-Evaluation - Re-Evaluation Time of Re-Evaluation: 10:20 (State on initial hx in that he took [place] yesterday for pain which did not help;Urine Drug screen here was negative for any drugs this morning.) Status: Unchanged (No apparent distress; Keeps asking for Morphine in that this is what they normally give me) Vital Signs Stable: Yes Appearance: NAD Lungs: Clear Skin: Warm and Dry Neuro: Alert and Oriented X3 CV: RRR Critical Care Note - Critical Care Note Total Time (mins): 0 Course - Course Hematology/Chemistry: 03/28/17 09:25 03/28/17 09:25 Orders, Labs, Meds: Lab Review 03/28/17 03/28/17 03/28/17 08:25 08:25 09:25 WBC 7.28 RBC 4.44 L Hgb 13.8 L Hct 38.5 L MCV 86.7 MCH 31.1 H MCHC 35.8 H RDW Coeff of Svitlana 11.8 Plt Count 248 Immature Gran % (Auto) 0.8 Neut % (Auto) 55.8 Lymph % (Auto) 34.3 [place] % (Auto) 8.7 Eos % (Auto) 0.3 Baso % (Auto) 0.1 Immature Gran # (Auto) 0.1 Neut # 4.1 Lymph # 2.5 [place] # 0.6 Eos # 0.0 Baso # 0.0 Sodium Potassium Chloride Carbon Dioxide Anion Gap BUN Creatinine Estimated GFR (MDRD) BUN/Creatinine Ratio Glucose Calcium Total Bilirubin AST ALT Alkaline Phosphatase Total Protein Albumin Globulin Albumin/Globulin Ratio Urine Color Yellow Urine Clarity Clear Urine pH 6.0 Ur Specific [place] >=1.030 Urine Protein 1+ Urine Glucose (UA) Negative Urine Ketones Negative Urine Blood Trace-lysed Urine Nitrite Negative Urine Bilirubin Negative Urine Urobilinogen 0.2 Ur Leukocyte Esterase Negative Urine Microscopic RBC 2-5 Ur Squamous Epith Cells Not present Urine Mucus 4+ Urine Opiates Screen Negative Ur Oxycodone Screen Negative Urine Methadone Screen Negative Ur Propoxyphene Screen Negative Ur Barbiturates Screen Negative U Tricyclic Antidepress Negative Ur Phencyclidine Scrn Negative Ur Amphetamine Screen Negative U Methamphetamines Scrn Negative U Benzodiazepines Scrn Negative Urine Cocaine Screen Negative U Cannabinoids Screen Negative 03/28/17 09:25 WBC RBC Hgb Hct MCV MCH MCHC RDW Coeff of Svitlana Plt Count Immature Gran % (Auto) Neut % (Auto) Lymph % (Auto) [place] % (Auto) Eos % (Auto) Baso % (Auto) Immature Gran # (Auto) Neut # Lymph # [place] # Eos # Baso # Sodium 139 Potassium 3.5 Chloride 104 Carbon Dioxide 25 Anion Gap 13.5 BUN 15 Creatinine 0.93 Estimated GFR (MDRD) 94.00 BUN/Creatinine Ratio 16.12 Glucose 96 Calcium 9.8 Total Bilirubin 0.3 AST 18 ALT 37 Alkaline Phosphatase 104 Total Protein 8.0 Albumin 4.1 Globulin 3.9 Albumin/Globulin Ratio 1.05 Urine Color Urine Clarity Urine pH Ur Specific [place] Urine Protein Urine Glucose (UA) Urine Ketones Urine Blood Urine Nitrite Urine Bilirubin Urine Urobilinogen Ur Leukocyte Esterase Urine Microscopic RBC Ur Squamous Epith Cells Urine Mucus Urine Opiates Screen Ur Oxycodone Screen Urine Methadone Screen Ur Propoxyphene Screen Ur Barbiturates Screen U Tricyclic Antidepress Ur Phencyclidine Scrn Ur Amphetamine Screen U Methamphetamines Scrn U Benzodiazepines Scrn Urine Cocaine Screen U Cannabinoids Screen Orders Category Date Time Status CBC W/ AUTO DIFF Stat LAB 03/28/17 09:25 Completed CMP [COMPREHENSIVE METABOLIC PANEL] Stat LAB 01/14/18 09:25 Completed URINALYSIS C & S IF INDICATED Stat LAB 03/28/17 08:25 Completed URINE DRUG SCREEN (RAPID FOR ED) [DRUG SCREEN, URINE, LAB 03/28/17 08:25 Completed RAPID] Stat Promethazine HCl [Phenergan 25 mg/ml Vial] MEDS 03/28/17 09:16 Discontinued 25 mg IM ONCE STA Medications Discontinued Medications Generic Name Dose Route Start Last Admin Trade Name Freq PRN Reason Stop Dose Admin Promethazine HCl 25 mg 03/28/17 09:16 03/28/17 10:31 Phenergan 25 Mg/Ml Vial IM 03/28/17 09:17 Not Given ONCE STA Vital Signs: Temp Pulse Resp BP Pulse Ox 03/28/17 08:33 99.0 F 120 H 20 136/81 98 Departure - Departure Time of Disposition: 10:40 Disposition: HOME SELF-CARE Discharge Problem: Chronic abdominal pain Crohns disease Qualifiers: Gastrointestinal tract location: unspecified location Instructions: Abdominal Pain (ED) Condition: Fair Pt referred to PMD for follow-up: Yes IPMP verified?: Yes Additional Instructions: Patient offered Phenergan for nausea but refused. States he normally gets IV fluids and Morphine for his pain but diagnostic lab, physical exam reveal no findings to suggest dehydration or acute pain Instructed to follow up with PCP in next week or return here if symptoms worsen Discharge Temp 98.1 Allergies/Adverse Reactions: Allergies No Known Allergies Allergy (Verified 03/28/17 08:58) Home Medications: Ambulatory Orders Sulfasalazine 500 mg PO TID 11/27/16 Metronidazole [Flagyl] 500 mg PO BID PRN 01/23/17 Cyclobenzaprine HCl [Flexeril] 5 mg PO DAILY PRN 02/13/17 Gabapentin [Neurontin] 300 mg PO TID 02/13/17 Terbinafine HCl [Lamisil At] 30 gm TP BID #30 cream..g. 03/20/17 Disposition Discussed With: Patient
[2017-03-28] MEDS ORDERED: PHENERGAN 25 MG/ML VIAL IM STA (09:16)
[2017-03-28 11:00] VITALS: TEMP 98.1
== END 2017-03-28 12:04 | disposition home or self-care (01) ==
LOC: ED 08:32
DX: R10.9 Unspecified abdominal pain (principal); G89.29 Other chronic pain; K50.90 Crohn's disease, unspecified, without complications
CPT/HCPCS: 36415; 80053; 80306; 81001; 85025; 99283

== ENCOUNTER 2017-04-25 20:25 | Emergency (ER) ==
[2017-04-25 20:25] VITALS: BMI 24.6
[2017-04-25] MEDS ORDERED: PHENERGAN 25 MG/ML VIAL IM STA (20:41)
[2017-04-25] MEDS ORDERED: DILAUDID 2 MG/ML SYRINGE IM STA (20:41)
[2017-04-25 20:44] VITALS: BP 124/87; TEMP 98.9
--- NOTE | 2017-04-25 21:13 | ED.PDOC ---
General ED Provider: Dr. JULEE GONZALEZ-ER Chief Complaint: Abdominal Pain Stated Complaint: im hurting..its my crohns Time Seen by Physician: 20:30 Mode of Arrival: Walk-In Information Source: Patient Exam Limitations: No limitations Primary Care Provider: ROSALINE CASTORENA Nursing and Triage Documentation Reviewed and Agree: Yes Reviewed sepsis parameters & appropriate labs ordered?: Yes System Inflammatory Response Syndrome: Not Applicable Sepsis Protocol: For patient's 13 years and over: Temp is 96.8 and below OR 101 and greater Pulse >90 BPM Resp >20/minute Acutely Altered Mental Status Are patient's symptoms suggestive of a new infection, such as: -Pneumonia -Skin, Soft Tissue -Endocarditis -UTI -Bone, Joint Infection -Implantable Device -Acute Abdominal Infection -Wound Infection -Meningitis -Blood Stream Catheter Infection -Unknown GI Complaint Exam - Abdominal Pain Complaint/Exam Onset: Gradual Duration: 24 hrs Symptoms Are: Still present Timing: Constant Initial Severity: Mild Current Severity: Moderate Location of Pain: Diffuse Character: Reports: Dull, Aching Aggravating: Reports: None Alleviating: Reports: None Associated Signs and Symptoms: Denies: Diaphoresis, Fever, Cough, Chest pain, Dizziness, Back pain, Constipation, Blood in stool, Dysuria, Urinary frequency, Decreased urine output, Decreased appetite, Discharge, Nausea, Vomiting, Diarrhea, Decreased activity Differential Diagnoses: Bowel Obstruction, Constipation, Pancreatitis, Irritable Bowel Syndrome, Other Review of Systems - Review Of Systems Constitutional: Reports: No symptoms Eyes: Reports: No symptoms Ears, Nose, Mouth, Throat: Reports: No symptoms Respiratory: Reports: No symptoms Cardiac: Reports: No symptoms GI: Reports: Abdominal pain : Reports: No symptoms Musculoskeletal: Reports: No symptoms Skin: Reports: No symptoms Neurological: Reports: No symptoms Endocrine: Reports: No symptoms Hematologic/Lymphatic: Reports: No symptoms All Other Systems: Reviewed and Negative Past Medical History - Past Medical History Previously Healthy: Yes Endocrine: Reports: Hypothyroid, Dyslipidemia Cardiovascular: Reports: None Respiratory: Reports: None Hematological: Reports: None Gastrointestinal: Reports: GERD, Crohn's, Pancreatitis Genitourinary: Reports: Kidney stones Neuro/Psych: Reports: Depression Musculoskeletal: Reports: None Cancer: Reports: None - Surgical History General Surgical History: Reports: Other (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, INTESTINAL RESECTION) - Family History Family History: Reports: Unknown - Social History Smoking Status: Never smoker Hx Substance Use: No Alcohol Screening: None - Immunizations Tetanus Shot up to Date: No Influenza Vaccine within 12 Months: Yes Pneumococcal Vaccine up to Date: Yes Physical Exam - Physical Exam Appearance: Well-appearing, No pain distress, Well-nourished Pain Distress: Moderate Eyes: DISHA ENT: Ears normal, Nose normal, Oropharynx normal Neck: Supple Respiratory: Airway patent, Breath sounds clear, Breath sounds equal, Respirations nonlabored Cardiovascular: RRR GI/: Soft, Nontender, No masses, Bowel sounds normal, No Organomegaly Musculoskeletal: Normal strength, ROM intact, No edema, No calf tenderness Skin: Warm, Dry, Normal color Neurological: Sensation intact, Motor intact, Reflexes intact, Cranial nerves intact, Alert, Oriented Psychiatric: Affect appropriate, Mood appropriate Interpretation - Radiology Interpretation Radiology Interpretation By: Radiologist Radiology Results: Negative Exam Interpreted: CT Scan Critical Care Note - Critical Care Note Total Time (mins): 0 Course - Course Hematology/Chemistry: 04/25/17 20:45 04/25/17 20:45 Orders, Labs, Meds: Lab Review 04/25/17 04/25/17 04/25/17 20:45 20:45 21:05 WBC 9.21 RBC 3.98 L Hgb 12.4 L Hct 33.5 L MCV 84.2 MCH 31.2 H MCHC 37.0 H RDW Coeff of Svitlana 12.7 Plt Count 227 Immature Gran % (Auto) 0.4 Neut % (Auto) 52.8 Lymph % (Auto) 36.6 [place] % (Auto) 10.0 Eos % (Auto) 0.0 Baso % (Auto) 0.2 Immature Gran # (Auto) 0.0 Neut # 4.9 Lymph # 3.4 [place] # 0.9 Eos # 0.0 Baso # 0.0 ESR 9 Sodium 138 Potassium 3.1 L Chloride 107 Carbon Dioxide 20 L Anion Gap 14.1 BUN 13 Creatinine 0.87 Estimated GFR (MDRD) 101.00 BUN/Creatinine Ratio 14.94 Glucose 94 Calcium 9.2 Total Bilirubin 0.4 AST 27 ALT 48 Alkaline Phosphatase 94 Total Protein 7.5 Albumin 3.9 Globulin 3.6 Albumin/Globulin Ratio 1.08 Amylase 67 Lipase 32 Urine Color Yellow Urine Clarity Clear Urine pH 6.0 Ur Specific [place] 1.025 Urine Protein 1+ Urine Glucose (UA) Negative Urine Ketones Negative Urine Blood Negative Urine Nitrite Negative Urine Bilirubin Negative Urine Urobilinogen 0.2 Ur Leukocyte Esterase Negative Urine Microscopic WBC 0-2 Ur Squamous Epith Cells 0-2 Ur Transition Epith Cell 0-2 Urine Mucus Trace Orders Category Date Time Status AMYLASE Stat LAB 04/25/17 20:45 Completed CBC W/ AUTO DIFF Stat LAB 04/25/17 20:45 Completed COMPREHENSIVE METABOLIC PANEL Stat LAB 04/25/17 20:45 Completed ESR Stat LAB 04/25/17 20:45 Completed LIPASE Stat LAB 04/25/17 20:45 Completed URINALYSIS C & S IF INDICATED Stat LAB 04/25/17 21:05 Completed Hydromorphone HCl/Pf [Dilaudid 2 mg/ml Syringe] MEDS 04/25/17 20:41 Discontinued 2 mg IM ONCE STA Potassium Chloride [K-Dur] MEDS 04/25/17 21:35 Discontinued 40 meq PO ONCE STA Promethazine HCl [Phenergan 25 mg/ml Vial] MEDS 04/25/17 20:41 Discontinued 25 mg IM ONCE STA CT ABDOMEN/PELVIS WO CONTRAST Stat RADS 04/25/17 20:41 Completed Medications Discontinued Medications Generic Name Dose Route Start Last Admin Trade Name Freq PRN Reason Stop Dose Admin Hydromorphone HCl 2 mg 04/25/17 20:41 04/25/17 21:06 Dilaudid 2 Mg/Ml Syringe IM 04/25/17 20:42 2 mg ONCE STA Administration Potassium Chloride 40 meq 04/25/17 21:35 K-Dur PO 04/25/17 21:36 ONCE STA Promethazine HCl 25 mg 04/25/17 20:41 04/25/17 21:04 Phenergan 25 Mg/Ml Vial IM 04/25/17 20:42 25 mg ONCE STA Administration Vital Signs: Temp Pulse Resp BP Pulse Ox 04/25/17 20:28 98.9 F 110 H 20 124/87 99 Departure - Departure Time of Disposition: 21:36 Disposition: HOME SELF-CARE Discharge Problem: Abdominal pain, Lung nodule Instructions: Abdominal Pain (ED) Condition: Good Pt referred to PMD for follow-up: Yes IPMP verified?: Yes Additional Instructions: do not take nsaids---f/u with pcp---talk to pcp about evaluation of the lung nodule--ultram 50mg q 6hrs prn pain #10--zofran 4mg q 6hrs prn nausea #6 Allergies/Adverse Reactions: Allergies No Known Allergies Allergy (Verified 04/25/17 20:33) Home Medications: Ambulatory Orders Sulfasalazine 500 mg PO TID 11/27/16 Cyclobenzaprine HCl [Flexeril] 5 mg PO DAILY PRN 02/13/17 Gabapentin [Neurontin] 300 mg PO TID 02/13/17 Terbinafine HCl [Lamisil At] 30 gm TP BID #30 cream..g. 03/20/17 Transfer Form Completed: No Disposition Discussed With: Patient
--- NOTE | 2017-04-25 21:14 | CT ---
EXAM: CT abdomen and pelvis without contrast HISTORY: Abdominal pain in lower abdominal area, Crohn disease TECHNIQUE: Multi-slice transaxial helical with coronal and sagittal reformed images COMPARISON: CT abdomen/pelvis from 04/24/2016 FINDINGS: The lung bases are free of acute airspace or interstitial opacities. The heart size is nor mal. There are no pericardial or pleural effusions. Minimal cylindrical bronchiectasis is detected wi thout mucus plugging. There is a solid stable nodule in the left lower lobe measuring 3.5 mm. The hepatic attenuation is normal relative to the spleen. No hepatic lesions are evident. The gallb ladder is present without biliary dilatation. The pancreas adrenal glands are normal. The spleen mccann s normal size and attenuation. A small simple cyst is suggested at the inferior pole of the right kidney. A hemorrhagic proteinaceo us cyst is detected superior pole of the right kidney measuring 3 mm. An additional hemorrhagic or p roteinaceous cyst is detected at the inferior pole of the left kidney and at the interpolar region of the left kidney. There are to additional interpolar hemorrhagic or proteinaceous cyst at the left k idney measuring less than 4 mm. No ureteral pelvicaliectasis is appreciated. No suspicious lymphade nopathy or ascites are appreciated. Aorta has normal caliber and patency. Nonopacified bladder is n ormal. A previous right hemicolectomy has been performed in the past with reanastomosis. There are air-flui d levels within the rectum. There is stool in the remaining large bowel. Small bowel loops are mini jennifer dilated without distension in the left side of the abdomen with mucosal fold prominence. The bones are free of suspicious osteolytic or osteoblastic lesions. IMPRESSION: 1. Previous right hemicolectomy. Nonobstructive intestinal gas pattern. Possible exacerbation of t he patient's Crohn disease. 2. No lymphadenopathy or ascites. 3. Solid nodule in the left lower lobe measuring 3.5 mm. 4. Bilateral small hemorrhagic or proteinaceous renal cysts.
[2017-04-25] MEDS ORDERED: K-DUR PO STA (21:35)
== END 2017-04-25 21:50 | disposition home or self-care (01) ==
LOC: ED 20:25
DX: R10.9 Unspecified abdominal pain (principal); R91.1 Solitary pulmonary nodule; Z87.19 Personal history of other diseases of the digestive system
CPT/HCPCS: 36415; 80053; 81001; 82150; 83690; 85025; 85651; 96372; 99283

== ENCOUNTER 2017-05-03 05:06 | Emergency (ER) ==
[2017-05-03 05:19] VITALS: BP 126/78; TEMP 98.3; BMI 25.1
[2017-05-03] MEDS ORDERED: ZOFRAN TAB PO STA (05:32)
--- NOTE | 2017-05-03 05:34 | ED.PDOC ---
General ED Provider: Dr. URMILA TRAMMELL Chief Complaint: Abdominal Pain Stated Complaint: c/o stabbing like pains to right-mid abdomen with associated Nausea and Abdominal distension. Has a history of chronic abdominal pain. Time Seen by Physician: 05:31 Mode of Arrival: Walk-In Information Source: Patient Exam Limitations: No limitations Primary Care Provider: ROSALINE CASTORENA Nursing and Triage Documentation Reviewed and Agree: Yes Reviewed sepsis parameters & appropriate labs ordered?: No System Inflammatory Response Syndrome: Pulse >90 BPM Sepsis Protocol: For patient's 13 years and over: Temp is 96.8 and below OR 101 and greater Pulse >90 BPM Resp >20/minute Acutely Altered Mental Status Are patient's symptoms suggestive of a new infection, such as: -Pneumonia -Skin, Soft Tissue -Endocarditis -UTI -Bone, Joint Infection -Implantable Device -Acute Abdominal Infection -Wound Infection -Meningitis -Blood Stream Catheter Infection -Unknown System Inflammatory Response Syndrome: Not Applicable GI Complaint Exam - Abdominal Pain Complaint/Exam Onset: Gradual Duration: chronic Symptoms Are: Still present Timing: Constant Initial Severity: Moderate Current Severity: Moderate Location of Pain: Diffuse Character: Reports: Aching, Throbbing Aggravating: Reports: None Alleviating: Reports: None Associated Signs and Symptoms: Reports: Nausea AAA Risk Factors: Reports: None Cardiac Risk Factors: Reports: None Testicular Torsion Risk Factors: Reports: None Surgical Obstruction Risk Factors: Reports: None Related Surgical History: Reports: None Abdominal Findings: Present: None Differential Diagnoses: Gastroenteritis, Pancreatitis, Pneumonia, UTI Review of Systems - Review Of Systems Constitutional: Reports: No symptoms Eyes: Reports: No symptoms Ears, Nose, Mouth, Throat: Reports: No symptoms Respiratory: Reports: No symptoms Cardiac: Reports: No symptoms GI: Reports: Abdominal pain, Nausea. Denies: Vomiting : Reports: No symptoms Musculoskeletal: Reports: No symptoms Skin: Reports: No symptoms Neurological: Reports: No symptoms Endocrine: Reports: No symptoms Hematologic/Lymphatic: Reports: No symptoms All Other Systems: Reviewed and Negative Past Medical History - Past Medical History Previously Healthy: Yes Endocrine: Reports: Hypothyroid, Dyslipidemia Cardiovascular: Reports: None Respiratory: Reports: None Hematological: Reports: None Gastrointestinal: Reports: GERD, Crohn's, Pancreatitis Genitourinary: Reports: Kidney stones Neuro/Psych: Reports: Depression Musculoskeletal: Reports: None Cancer: Reports: None - Surgical History General Surgical History: Reports: Other (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, INTESTINAL RESECTION) - Family History Family History: Reports: Unknown - Social History Smoking Status: Never smoker Hx Substance Use: No Alcohol Screening: None - Immunizations Tetanus Shot up to Date: Yes Influenza Vaccine within 12 Months: Yes Pneumococcal Vaccine up to Date: Yes Physical Exam - Physical Exam Appearance: Ill-appearing Ill-appearing: Mild Pain Distress: Moderate Eyes: DISHA, EOMI, Conjunctiva clear Neck: Supple Respiratory: Airway patent, Breath sounds clear, Breath sounds equal, Respirations nonlabored Cardiovascular: Pulses normal, No rub, No murmur, Tachycardia GI/: Soft, Tender Musculoskeletal: Normal strength, ROM intact, No edema, No calf tenderness Skin: Warm, Dry, Normal color Neurological: Sensation intact, Motor intact, Cranial nerves intact, Alert, Oriented Critical Care Note - Critical Care Note Total Time (mins): 0 Course - Course Hematology/Chemistry: 05/03/17 05:42 05/03/17 05:42 Orders, Labs, Meds: Lab Review 05/03/17 05/03/17 05:42 05:42 WBC 7.19 RBC 3.79 L Hgb 11.8 L Hct 33.3 L MCV 87.9 MCH 31.1 H MCHC 35.4 RDW Coeff of Svitlana 13.0 Plt Count 218 Immature Gran % (Auto) 0.6 Neut % (Auto) 54.2 Lymph % (Auto) 33.1 [place] % (Auto) 12.0 H Eos % (Auto) 0.0 Baso % (Auto) 0.1 Immature Gran # (Auto) 0.0 Neut # 3.9 Lymph # 2.4 [place] # 0.9 Eos # 0.0 Baso # 0.0 Sodium 140 Potassium 3.8 Chloride 109 H Carbon Dioxide 22 Anion Gap 12.8 BUN 15 Creatinine 0.89 Estimated GFR (MDRD) 98.00 BUN/Creatinine Ratio 16.85 Glucose 98 Calcium 9.0 Total Bilirubin < 0.3 AST 11 L ALT 19 Alkaline Phosphatase 85 Total Protein 6.9 Albumin 3.6 Globulin 3.3 Albumin/Globulin Ratio 1.09 Amylase 72 Lipase 52 Orders Category Date Time Status AMYLASE Stat LAB 05/03/17 05:42 Completed CBC W/ AUTO DIFF Stat LAB 05/03/17 05:42 Completed COMPREHENSIVE METABOLIC PANEL Stat LAB 05/03/17 05:42 Completed LIPASE Stat LAB 05/03/17 05:42 Completed Dicyclomine Inj [Bentyl] MEDS 05/03/17 05:32 Discontinued 20 mg IM ONCE STA Ketorolac Tromethamine [Toradol] MEDS 05/03/17 05:48 Discontinued 60 mg IM ONCE STA Ondansetron HCl [Zofran Tab] MEDS 05/03/17 05:32 Discontinued 8 mg PO ONCE STA Medications Discontinued Medications Generic Name Dose Route Start Last Admin Trade Name Freq PRN Reason Stop Dose Admin Dicyclomine HCl 20 mg 05/03/17 05:32 05/03/17 06:21 Bentyl IM 05/03/17 05:33 Not Given ONCE STA Ketorolac Tromethamine 60 mg 05/03/17 05:48 05/03/17 06:22 Toradol IM 05/03/17 05:49 Not Given ONCE STA Ondansetron HCl 8 mg 05/03/17 05:32 05/03/17 05:48 Zofran Tab PO 05/03/17 05:33 8 mg ONCE STA Administration Vital Signs: Temp Pulse Resp BP Pulse Ox 05/03/17 05:10 98.3 F 104 H 18 126/78 97 Departure - Departure Time of Disposition: 06:35 Disposition: HOME SELF-CARE Discharge Problem: Chronic generalized abdominal pain Instructions: Chronic Abdominal Pain (ED) Condition: Fair Pt referred to PMD for follow-up: Yes IPMP verified?: No Additional Instructions: Continue home medication follow up with pain management for chronic abdominal pain Allergies/Adverse Reactions: Allergies No Known Allergies Allergy (Verified 05/03/17 05:10) Home Medications: Ambulatory Orders Sulfasalazine 500 mg PO QID 11/27/16 Gabapentin [Neurontin] 300 mg PO TID 02/13/17 Ondansetron HCl [Zofran Tab] 4 mg PO Q4H PRN 05/03/17 Disposition Discussed With: Patient
[2017-05-03] MEDS ORDERED: TORADOL IM STA (05:48)
[2017-05-03] MEDS: BENTYL IM STA ×2 (05:49→06:21)
== END 2017-05-03 06:20 | disposition home or self-care (01) ==
LOC: ED 05:06
DX: R10.84 Generalized abdominal pain (principal); G89.29 Other chronic pain; Z87.19 Personal history of other diseases of the digestive system
CPT/HCPCS: 36415; 80053; 82150; 83690; 85025; 99283

== ENCOUNTER 2017-05-06 16:30 | Outpatient (CLI) | END 2017-05-06 16:31 | disposition home or self-care (01) | LOC: FCC-LAB 16:30 | PROVIDERS: ATTEND Family Medicine | DX: K50.90 Crohn's disease, unspecified, without complications (principal); R10.9 Unspecified abdominal pain; G89.29 Other chronic pain; Z86.39 Personal history of other endocrine, nutritional and metabolic disease; Z87.19 Personal history of other diseases of the digestive system | CPT/HCPCS: 36415; 80061 ==

== ENCOUNTER 2017-05-16 21:08 | Emergency (ER) ==
[2017-05-16 21:18] VITALS: BP 120/75; TEMP 98.5; BMI 25.0
--- NOTE | 2017-05-16 21:55 | CT ---
EXAM: CT abdomen and pelvis without contrast HISTORY: Abdominal pain TECHNIQUE: Multi-slice transaxial helical with coronal and sagittal reformed images COMPARISON: CT abdomen/pelvis from 04/25/2017 FINDINGS: The lung bases are free of acute airspace or interstitial opacities. The heart size is nor mal. There are no pericardial or pleural effusions. The hepatic attenuation is normal relative to the spleen. The gallbladder is present without biliary dilatation. The pancreas and adrenal glands are normal. The spleen has normal size and attenuation . There is a probable hemorrhagic or proteinaceous cyst at the interpolar region of the left kidney measuring 3 mm. Three small hemorrhagic or proteinaceous cysts are suggested at the superior pole of the right kidney measuring less than 3.5 mm. A simple cyst is noted at the inferior pole of the rig ht kidney. There are two nonobstructing calculi suggested at the interpolar region of the left kidne y measuring less than 3 mm. Ureters are nondilated. The nonopacified bladder is normal. The intesti samson have normal caliber. There is suggestion of a previous right hemicolectomy with reanastomosis. No lymphadenopathy or ascites are appreciated. The aorta has normal caliber. The bones are free of suspicious osteolytic or osteoblastic lesions. IMPRESSION: 1. Nonobstructive intestinal gas pattern. Previous right hemicolectomy with reanastomosis. 2. Small hemorrhagic or proteinaceous renal cyst suggested bilaterally. In addition, simple right r enal cyst. Nonobstructing left nephrolithiasis suggested. No ureteral pelvicaliectasis.
[2017-05-16] MEDS ORDERED: ULTRAM PO STA (22:50)
--- NOTE | 2017-05-16 22:53 | ED.PDOC ---
General ED Provider: Dr. JULEE GONZALEZ-ER Chief Complaint: Abdominal Pain Stated Complaint: im hurting Time Seen by Physician: 21:15 Mode of Arrival: Walk-In Information Source: Patient Exam Limitations: No limitations Primary Care Provider: ROSALINE CASTORENA Nursing and Triage Documentation Reviewed and Agree: Yes Reviewed sepsis parameters & appropriate labs ordered?: Yes System Inflammatory Response Syndrome: Not Applicable Sepsis Protocol: For patient's 13 years and over: Temp is 96.8 and below OR 101 and greater Pulse >90 BPM Resp >20/minute Acutely Altered Mental Status Are patient's symptoms suggestive of a new infection, such as: -Pneumonia -Skin, Soft Tissue -Endocarditis -UTI -Bone, Joint Infection -Implantable Device -Acute Abdominal Infection -Wound Infection -Meningitis -Blood Stream Catheter Infection -Unknown GI Complaint Exam - Abdominal Pain Complaint/Exam Onset: Gradual Duration: several days Symptoms Are: Still present Timing: Constant Initial Severity: Mild Current Severity: Mild Location of Pain: Diffuse Character: Reports: Dull, Aching, Throbbing Alleviating: Reports: None Associated Signs and Symptoms: Denies: Diaphoresis, Fever, Cough, Chest pain, Dizziness, Back pain, Constipation, Blood in stool, Dysuria, Urinary frequency, Decreased urine output, Decreased appetite, Discharge, Nausea, Vomiting, Diarrhea, Decreased activity Differential Diagnoses: Other Review of Systems - Review Of Systems Constitutional: Reports: No symptoms Eyes: Reports: No symptoms Ears, Nose, Mouth, Throat: Reports: No symptoms Respiratory: Reports: No symptoms Cardiac: Reports: No symptoms GI: Reports: Abdominal pain : Reports: No symptoms Musculoskeletal: Reports: No symptoms Skin: Reports: No symptoms Neurological: Reports: No symptoms Endocrine: Reports: No symptoms Hematologic/Lymphatic: Reports: No symptoms All Other Systems: Reviewed and Negative Past Medical History - Past Medical History Previously Healthy: Yes Endocrine: Reports: Hypothyroid, Dyslipidemia Cardiovascular: Reports: None Respiratory: Reports: None Hematological: Reports: None Gastrointestinal: Reports: GERD, Crohn's, Pancreatitis Genitourinary: Reports: Kidney stones Neuro/Psych: Reports: Depression Musculoskeletal: Reports: None Cancer: Reports: None - Surgical History General Surgical History: Reports: Other (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, INTESTINAL RESECTION) - Family History Family History: Reports: Unknown - Social History Smoking Status: Never smoker Hx Substance Use: No Alcohol Screening: None - Immunizations Tetanus Shot up to Date: Yes Influenza Vaccine within 12 Months: Yes Pneumococcal Vaccine up to Date: Yes Physical Exam - Physical Exam Appearance: Well-appearing, No pain distress, Well-nourished Pain Distress: Moderate Eyes: DISHA, EOMI, Conjunctiva clear ENT: Ears normal, Nose normal, Oropharynx normal Neck: Supple Respiratory: Airway patent, Breath sounds clear, Breath sounds equal, Respirations nonlabored Cardiovascular: RRR GI/: Soft, Nontender, No masses, Bowel sounds normal, No Organomegaly Musculoskeletal: Normal strength, ROM intact, No edema, No calf tenderness Skin: Warm, Dry, Normal color Neurological: Sensation intact, Motor intact, Reflexes intact, Cranial nerves intact, Alert, Oriented Psychiatric: Affect appropriate, Mood appropriate Interpretation - Radiology Interpretation Radiology Interpretation By: Radiologist Radiology Results: Negative Exam Interpreted: CT Scan Critical Care Note - Critical Care Note Total Time (mins): 0 Course - Course Hematology/Chemistry: 05/16/17 21:30 05/16/17 21:30 Orders, Labs, Meds: Lab Review 05/16/17 05/16/17 05/16/17 21:25 21:30 21:30 WBC 7.95 RBC 3.69 L Hgb 11.6 L Hct 32.4 L MCV 87.8 MCH 31.4 H MCHC 35.8 H RDW Coeff of Svitlana 12.3 Plt Count 164 Immature Gran % (Auto) 0.3 Neut % (Auto) 58.0 Lymph % (Auto) 29.9 [place] % (Auto) 11.7 H Eos % (Auto) 0.0 Baso % (Auto) 0.1 Immature Gran # (Auto) 0.0 Neut # (Auto) 4.6 Lymph # (Auto) 2.4 [place] # (Auto) 0.9 Eos # (Auto) 0.0 Baso # (Auto) 0.0 ESR 11 Sodium Potassium Chloride Carbon Dioxide Anion Gap BUN Creatinine Estimated GFR (MDRD) BUN/Creatinine Ratio Glucose Calcium Total Bilirubin AST ALT Alkaline Phosphatase Total Protein Albumin Globulin Albumin/Globulin Ratio Amylase Lipase Urine Color Yellow Urine Clarity Clear Urine pH 5.5 Ur Specific [place] 1.025 Urine Protein Negative Urine Glucose (UA) Negative Urine Ketones Negative Urine Blood Negative Urine Nitrite Negative Urine Bilirubin Negative Urine Urobilinogen 0.2 Ur Leukocyte Esterase Negative 05/16/17 21:30 WBC RBC Hgb Hct MCV MCH MCHC RDW Coeff of Svitlana Plt Count Immature Gran % (Auto) Neut % (Auto) Lymph % (Auto) [place] % (Auto) Eos % (Auto) Baso % (Auto) Immature Gran # (Auto) Neut # (Auto) Lymph # (Auto) [place] # (Auto) Eos # (Auto) Baso # (Auto) ESR Sodium 141 Potassium 4.1 Chloride 104 Carbon Dioxide 25 Anion Gap 16.1 BUN 13 Creatinine 1.01 Estimated GFR (MDRD) 85.00 BUN/Creatinine Ratio 12.87 Glucose 114 H Calcium 9.2 Total Bilirubin 0.3 AST 20 ALT 35 Alkaline Phosphatase 89 Total Protein 7.0 Albumin 3.8 Globulin 3.2 Albumin/Globulin Ratio 1.19 Amylase 54 Lipase 31 Urine Color Urine Clarity Urine pH Ur Specific [place] Urine Protein Urine Glucose (UA) Urine Ketones Urine Blood Urine Nitrite Urine Bilirubin Urine Urobilinogen Ur Leukocyte Esterase Orders Category Date Time Status EKG-(ED ONLY) Stat CARDIO 05/16/17 21:19 Completed AMYLASE Stat LAB 05/16/17 21:30 Completed CBC W/ AUTO DIFF Stat LAB 05/16/17 21:30 Completed COMPREHENSIVE METABOLIC PANEL Stat LAB 05/16/17 21:30 Completed ESR Stat LAB 05/16/17 21:30 Completed LIPASE Stat LAB 05/16/17 21:30 Completed URINALYSIS C & S IF INDICATED Stat LAB 05/16/17 21:25 Completed Tramadol HCl [Ultram] MEDS 05/16/17 22:50 Stat 50 mg PO ONCE STA CT ABDOMEN/PELVIS WO CONTRAST Stat RADS 05/16/17 21:19 Completed Vital Signs: Temp Pulse Resp BP Pulse Ox 05/16/17 21:10 98.5 F 118 H 20 120/75 98 Departure - Departure Time of Disposition: 22:52 Disposition: HOME SELF-CARE Discharge Problem: Crohn disease Qualifiers: Gastrointestinal tract location: unspecified location Digestive disease complication type: unspecified complication Qualified Code(s): K50.919 - Crohn' s disease, unspecified, with unspecified complications Instructions: Crohn Disease (ED) Condition: Good Pt referred to PMD for follow-up: Yes IPMP verified?: No Additional Instructions: ultram 50mg q 6hrs prn pain #10--fu with gi doctor or pcp Allergies/Adverse Reactions: Allergies No Known Allergies Allergy (Verified 05/16/17 21:17) Home Medications: Ambulatory Orders Sulfasalazine 500 mg PO QID 11/27/16 Gabapentin [Neurontin] 300 mg PO TID 02/13/17 Multivitamin [Multi-Vitamin Daily] 1 each PO DAILY 05/06/17 Disposition Discussed With: Patient
== END 2017-05-16 23:00 | disposition home or self-care (01) ==
LOC: ED 21:08
DX: K50.919 Crohn's disease, unspecified, with unspecified complications (principal)
CPT/HCPCS: 36415; 80053; 81001; 82150; 83690; 85025; 85651; 93005; 93010; 99283

== ENCOUNTER 2017-05-30 21:22 | Emergency (ER) ==
[2017-05-30 21:25] VITALS: BP 132/82; TEMP 98.7; BMI 25.0
--- NOTE | 2017-05-30 22:16 | CT ---
EXAM: CT of the abdomen pelvis without contrast History: Abdominal pain and vomiting. Comparison: CT abdomen pelvis 05/16/2017 Technique: Multiplanar CT images through the abdomen pelvis were obtained without the administration of IV contrast Findings: Lung bases are free of consolidation. No acute osseous abnormalities. No focal liver or splenic lesions identified. A few punctate 1 mm bilateral renal calculi. No hydro nephrosis. A few tiny hemorrhagic bilateral renal cysts are stable. No peripancreatic inflammation. Adrenal glands are unremarkable. Postsurgical changes of the bowel. There is inflammation adjacen t to the bladder wall and there is high density seen within the bladder. The. Prostate is not enlar ged. No perirectal inflammation. There is mild colonic dilatation and fluid is seen within the colo n. No obstructing colonic masses identified. There are small scattered mesenteric lymph nodes, rayna lar to the prior study. Impression: 1. Colonic dilatation and fluid is probably related to enteritis or ileus. No obstructing colonic l esions are identified. Recommend followup with abdominal plain films to assure resolution and exclud e any underlying mechanical bowel obstruction. 2. Inflammation seen adjacent to the bladder and high density bladder contents. Correlate with urin alysis for possible cystitis. 3. Punctate nonobstructing bilateral renal calculi.
--- NOTE | 2017-05-30 22:56 | ED.PDOC ---
General ED Provider: Dr. JULEE GONZALEZ-ER Chief Complaint: Abdominal Pain Stated Complaint: im hurting Time Seen by Physician: 21:30 Mode of Arrival: Walk-In Information Source: Patient Exam Limitations: No limitations Primary Care Provider: ROSALINE CASTORENA Nursing and Triage Documentation Reviewed and Agree: Yes Reviewed sepsis parameters & appropriate labs ordered?: Yes System Inflammatory Response Syndrome: Not Applicable Sepsis Protocol: For patient's 13 years and over: Temp is 96.8 and below OR 101 and greater Pulse >90 BPM Resp >20/minute Acutely Altered Mental Status Are patient's symptoms suggestive of a new infection, such as: -Pneumonia -Skin, Soft Tissue -Endocarditis -UTI -Bone, Joint Infection -Implantable Device -Acute Abdominal Infection -Wound Infection -Meningitis -Blood Stream Catheter Infection -Unknown GI Complaint Exam - Abdominal Pain Complaint/Exam Onset: Gradual Duration: several hours Symptoms Are: Still present Timing: Constant Initial Severity: Mild Current Severity: Mild Location of Pain: Diffuse Character: Reports: Dull, Aching, Cramping Aggravating: Reports: None Associated Signs and Symptoms: Reports: Nausea. Denies: Diaphoresis, Fever, Cough, Chest pain, Dizziness, Constipation, Blood in stool, Dysuria, Urinary frequency, Decreased urine output, Decreased appetite, Discharge, Vomiting, Diarrhea, Decreased activity AAA Risk Factors: Reports: None Surgical Obstruction Risk Factors: Reports: Colicky abdominal pain, Prior abdominal surgery Abdominal Findings: Present: None Differential Diagnoses: Bowel Obstruction, Constipation, Pancreatitis, Other Quality Indicator For Non-Traumatic Chest Pain/Syncope: EKG Performed Review of Systems - Review Of Systems Constitutional: Reports: No symptoms Eyes: Reports: No symptoms Ears, Nose, Mouth, Throat: Reports: No symptoms Respiratory: Reports: No symptoms Cardiac: Reports: No symptoms GI: Reports: Abdominal pain, Nausea : Reports: No symptoms Musculoskeletal: Reports: No symptoms Skin: Reports: No symptoms Neurological: Reports: No symptoms Endocrine: Reports: No symptoms Hematologic/Lymphatic: Reports: No symptoms All Other Systems: Reviewed and Negative Past Medical History - Past Medical History Previously Healthy: Yes Endocrine: Reports: Hypothyroid, Dyslipidemia Cardiovascular: Reports: None Respiratory: Reports: None Hematological: Reports: None Gastrointestinal: Reports: GERD, Crohn's, Pancreatitis Genitourinary: Reports: Kidney stones Neuro/Psych: Reports: Depression Musculoskeletal: Reports: None Cancer: Reports: None - Surgical History General Surgical History: Reports: Other (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, INTESTINAL RESECTION) - Family History Family History: Reports: Unknown - Social History Smoking Status: Never smoker Hx Substance Use: No Alcohol Screening: None Lives: With family - Immunizations Tetanus Shot up to Date: Yes Influenza Vaccine within 12 Months: Yes Pneumococcal Vaccine up to Date: Yes Physical Exam - Physical Exam Appearance: Well-appearing, No pain distress, Well-nourished Pain Distress: Mild Eyes: DISHA, EOMI, Conjunctiva clear ENT: Ears normal, Nose normal, Oropharynx normal Neck: Supple Respiratory: Airway patent, Breath sounds clear, Breath sounds equal, Respirations nonlabored Cardiovascular: RRR, Pulses normal, No rub, No murmur GI/: Soft, Nontender, No masses, Bowel sounds normal, No Organomegaly Musculoskeletal: Normal strength, ROM intact, No edema, No calf tenderness Skin: Warm, Dry, Normal color Neurological: Sensation intact, Motor intact, Reflexes intact, Cranial nerves intact, Alert, Oriented Psychiatric: Affect appropriate, Mood appropriate, Anxious Interpretation - Radiology Interpretation Radiology Interpretation By: Radiologist Radiology Results: Positive Exam Interpreted: CT Scan ("high density bladder contents") - EKG Interpretation Time of EKG #1: 21:40 Rate: Tachy Rhythm: Sinus Ectopy: None [place]: NL ST Segment: Normal Interpretation: sinus tachy Critical Care Note - Critical Care Note Total Time (mins): 0 Course - Course Hematology/Chemistry: 05/30/17 21:30 05/30/17 21:30 Orders, Labs, Meds: Lab Review 05/30/17 05/30/17 05/30/17 21:30 21:30 21:49 WBC 8.81 RBC 3.85 L Hgb 11.9 L Hct 33.4 L MCV 86.8 MCH 30.9 MCHC 35.6 H RDW Coeff of Svitlana 12.6 Plt Count 254 Immature Gran % (Auto) 0.3 Neut % (Auto) 57.7 Lymph % (Auto) 30.9 Butts % (Auto) 10.9 H Eos % (Auto) 0.0 Baso % (Auto) 0.2 Immature Gran # (Auto) 0.0 Neut # (Auto) 5.1 Lymph # (Auto) 2.7 Butts # (Auto) 1.0 Eos # (Auto) 0.0 Baso # (Auto) 0.0 Sodium 138 Potassium 3.7 Chloride 107 Carbon Dioxide 24 Anion Gap 10.7 BUN 11 Creatinine 1.00 Estimated GFR (MDRD) 86.00 BUN/Creatinine Ratio 11.00 Glucose 98 Calcium 10.1 Total Bilirubin 0.4 AST 26 ALT 46 Alkaline Phosphatase 93 Total Creatine Kinase 147 CK-MB (CK-2) 1.4 CK-MB (CK-2) % 0.01728 Troponin I 0.0150 Total Protein 7.8 Albumin 4.0 Globulin 3.8 Albumin/Globulin Ratio 1.05 Amylase 65 Lipase 29 Urine Color Yellow Urine Clarity Clear Urine pH 5.5 Ur Specific [place] >=1.030 Urine Protein Trace Urine Glucose (UA) Negative Urine Ketones Negative Urine Blood Negative Urine Nitrite Negative Urine Bilirubin Negative Urine Urobilinogen 0.2 Ur Leukocyte Esterase Negative Urine Microscopic WBC 0-2 Ur Squamous Epith Cells Not present Urine Mucus 2+ Orders Category Date Time Status EKG-(ED ONLY) Stat CARDIO 05/30/17 21:25 Completed AMYLASE Stat LAB 05/30/17 21:30 Completed CBC W/ AUTO DIFF Stat LAB 05/30/17 21:30 Completed COMPREHENSIVE METABOLIC PANEL Stat LAB 05/30/17 21:30 Completed CREATINE KINASE Stat LAB 05/30/17 21:30 Completed LIPASE Stat LAB 05/30/17 21:30 Completed TROPONIN I Stat LAB 05/30/17 21:30 Completed URINALYSIS C & S IF INDICATED Stat LAB 05/30/17 21:49 Completed Tramadol HCl [Ultram] MEDS 05/30/17 22:59 Stat 100 mg PO ONCE STA CT ABDOMEN/PELVIS WO CONTRAST Stat RADS 05/30/17 21:26 Completed Vital Signs: Temp Pulse Resp BP Pulse Ox 05/30/17 21:23 98.7 F 119 H 18 132/82 98 Departure - Departure Time of Disposition: 23:00 Disposition: HOME SELF-CARE Discharge Problem: Abdominal pain, Bladder filling defect Instructions: Chronic Abdominal Pain (ED) Condition: Good Pt referred to PMD for follow-up: Yes IPMP verified?: No Additional Instructions: ultram 50mg q 6hrs prn pain #10--talk to your pcp about referral back to dr gates about the bladder Allergies/Adverse Reactions: Allergies No Known Allergies Allergy (Verified 05/30/17 21:26) Home Medications: Ambulatory Orders Sulfasalazine 500 mg PO QID 11/27/16 Gabapentin [Neurontin] 300 mg PO TID 02/13/17 Multivitamin [Multi-Vitamin Daily] 1 each PO DAILY 05/06/17 Hydrocodone Bit/Acetaminophen [Hobgood 7.5-325] 1 tab PO BID 05/30/17 Disposition Discussed With: Patient
[2017-05-30] MEDS ORDERED: ULTRAM PO STA (22:59)
== END 2017-05-30 23:20 | disposition home or self-care (01) ==
LOC: ED 21:22
DX: R10.84 Generalized abdominal pain (principal); N32.89 Other specified disorders of bladder; Z87.19 Personal history of other diseases of the digestive system
CPT/HCPCS: 36415; 80053; 81001; 82150; 82550; 82553; 83690; 84484; 85025; 93005; 93010; 99283

== ENCOUNTER 2017-06-20 20:27 | Emergency (ER) ==
[2017-06-20 20:37] VITALS: BP 112/79; TEMP 98.4; BMI 24.5
--- NOTE | 2017-06-20 21:06 | ED.PDOC ---
General ED Provider: Dr. SANTIAGO DANIELS Chief Complaint: Abdominal Pain Stated Complaint: Been hurting in the belly for couple days, seen Dr Valentin for the bladder issues. Seen Dr Longoria. started him on Pentasa. Time Seen by Physician: 21:06 Mode of Arrival: Walk-In Information Source: Patient Nursing and Triage Documentation Reviewed and Agree: Yes Reviewed sepsis parameters & appropriate labs ordered?: No System Inflammatory Response Syndrome: Not Applicable Sepsis Protocol: For patient's 13 years and over: Temp is 96.8 and below OR 101 and greater Pulse >90 BPM Resp >20/minute Acutely Altered Mental Status Are patient's symptoms suggestive of a new infection, such as: -Pneumonia -Skin, Soft Tissue -Endocarditis -UTI -Bone, Joint Infection -Implantable Device -Acute Abdominal Infection -Wound Infection -Meningitis -Blood Stream Catheter Infection -Unknown GI Complaint Exam - Abdominal Pain Complaint/Exam Onset: Gradual Symptoms Are: Still present Timing: Constant Initial Severity: Moderate Current Severity: Moderate Location of Pain: Discrete Character: Reports: Dull, Aching, Throbbing Aggravating: Reports: Movement, Food Alleviating: Reports: None Associated Signs and Symptoms: Denies: Diaphoresis, Fever, Cough, Chest pain, Dizziness, Back pain, Constipation, Blood in stool, Dysuria, Urinary frequency, Decreased urine output, Decreased appetite, Discharge, Nausea, Vomiting, Diarrhea, Decreased activity Related History: Reports: Similar episode AAA Risk Factors: Reports: None Cardiac Risk Factors: Reports: None Testicular Torsion Risk Factors: Reports: None Surgical Obstruction Risk Factors: Reports: None Related Surgical History: Reports: None Abdominal Findings: Present: None Differential Diagnoses: Bowel Obstruction, Irritable Bowel Syndrome Review of Systems - Review Of Systems Constitutional: Reports: No symptoms Eyes: Reports: No symptoms Ears, Nose, Mouth, Throat: Reports: No symptoms Respiratory: Reports: No symptoms Cardiac: Reports: No symptoms GI: Reports: Abdominal pain : Reports: No symptoms Musculoskeletal: Reports: No symptoms Skin: Reports: No symptoms Neurological: Reports: No symptoms Endocrine: Reports: No symptoms Hematologic/Lymphatic: Reports: No symptoms All Other Systems: Reviewed and Negative Past Medical History - Past Medical History Previously Healthy: Yes Endocrine: Reports: Hypothyroid, Dyslipidemia Cardiovascular: Reports: None Respiratory: Reports: None Hematological: Reports: None Gastrointestinal: Reports: GERD, Crohn's, Pancreatitis Genitourinary: Reports: Kidney stones Neuro/Psych: Reports: Depression Musculoskeletal: Reports: None Cancer: Reports: None - Surgical History General Surgical History: Reports: Other (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, INTESTINAL RESECTION) - Family History Family History: Reports: Unknown - Social History Smoking Status: Never smoker Hx Substance Use: No Alcohol Screening: None - Immunizations Tetanus Shot up to Date: Yes Influenza Vaccine within 12 Months: Yes Pneumococcal Vaccine up to Date: Yes Physical Exam - Physical Exam Appearance: Ill-appearing, Thin Eyes: DISHA, EOMI, Conjunctiva clear ENT: Ears normal, Nose normal, Oropharynx normal Respiratory: Airway patent, Breath sounds clear, Breath sounds equal, Respirations nonlabored Cardiovascular: RRR, Pulses normal, No rub, No murmur GI/: Tender Musculoskeletal: Normal strength, ROM intact, No edema, No calf tenderness Skin: Warm, Dry, Normal color Neurological: Sensation intact, Motor intact, Reflexes intact, Cranial nerves intact, Alert, Oriented Psychiatric: Affect appropriate, Mood appropriate Interpretation - Radiology Interpretation Radiology Interpretation By: Radiologist Radiology Results: Positive (cyctitis on bladder, seen Dr Lang) Exam Interpreted: CT Scan Critical Care Note - Critical Care Note Total Time (mins): 30 Course - Course Hematology/Chemistry: 06/20/17 21:05 06/20/17 21:05 Orders, Labs, Meds: Lab Review 06/20/17 06/20/17 06/20/17 20:45 20:45 21:05 WBC 9.50 RBC 3.88 L Hgb 12.0 L Hct 33.1 L MCV 85.3 MCH 30.9 MCHC 36.3 H RDW Coeff of Svitlana 12.9 Plt Count 237 Immature Gran % (Auto) 0.3 Neut % (Auto) 60.2 Lymph % (Auto) 28.7 [place] % (Auto) 10.6 H Eos % (Auto) 0.0 Baso % (Auto) 0.2 Immature Gran # (Auto) 0.0 Neut # (Auto) 5.7 Lymph # (Auto) 2.7 [place] # (Auto) 1.0 Eos # (Auto) 0.0 Baso # (Auto) 0.0 Sodium Potassium Chloride Carbon Dioxide Anion Gap BUN Creatinine Estimated GFR (MDRD) BUN/Creatinine Ratio Glucose Calcium Total Bilirubin AST ALT Alkaline Phosphatase Total Protein Albumin Globulin Albumin/Globulin Ratio Urine Color Yellow Urine Clarity Clear Urine pH 6.0 Ur Specific [place] >=1.030 Urine Protein Negative Urine Glucose (UA) Negative Urine Ketones Negative Urine Blood Negative Urine Nitrite Negative Urine Bilirubin Negative Urine Urobilinogen 0.2 Ur Leukocyte Esterase Negative Urine Opiates Screen Negative Ur Oxycodone Screen Negative Urine Methadone Screen Negative Ur Propoxyphene Screen Negative Ur Barbiturates Screen Negative U Tricyclic Antidepress Negative Ur Phencyclidine Scrn Negative Ur Amphetamine Screen Negative U Methamphetamines Scrn Negative U Benzodiazepines Scrn Positive Urine Cocaine Screen Negative U Cannabinoids Screen Negative 06/20/17 21:05 WBC RBC Hgb Hct MCV MCH MCHC RDW Coeff of Svitlana Plt Count Immature Gran % (Auto) Neut % (Auto) Lymph % (Auto) [place] % (Auto) Eos % (Auto) Baso % (Auto) Immature Gran # (Auto) Neut # (Auto) Lymph # (Auto) [place] # (Auto) Eos # (Auto) Baso # (Auto) Sodium 140 Potassium 3.5 Chloride 107 Carbon Dioxide 21 Anion Gap 15.5 BUN 9 Creatinine 1.00 Estimated GFR (MDRD) 86.00 BUN/Creatinine Ratio 9.00 Glucose 88 Calcium 9.2 Total Bilirubin 0.3 AST 17 ALT 21 Alkaline Phosphatase 85 Total Protein 7.4 Albumin 3.7 Globulin 3.7 Albumin/Globulin Ratio 1.00 Urine Color Urine Clarity Urine pH Ur Specific [place] Urine Protein Urine Glucose (UA) Urine Ketones Urine Blood Urine Nitrite Urine Bilirubin Urine Urobilinogen Ur Leukocyte Esterase Urine Opiates Screen Ur Oxycodone Screen Urine Methadone Screen Ur Propoxyphene Screen Ur Barbiturates Screen U Tricyclic Antidepress Ur Phencyclidine Scrn Ur Amphetamine Screen U Methamphetamines Scrn U Benzodiazepines Scrn Urine Cocaine Screen U Cannabinoids Screen Orders Category Date Time Status CBC W/ AUTO DIFF Stat LAB 06/20/17 21:05 Completed COMPREHENSIVE METABOLIC PANEL Stat LAB 06/20/17 21:05 Completed URINALYSIS C & S IF INDICATED Stat LAB 06/20/17 20:45 Completed URINE DRUG SCREEN (RAPID FOR ED) [DRUG SCREEN, URINE, LAB 06/20/17 20:45 Completed RAPID] Stat CT ABDOMEN/PELVIS WO CONTRAST Stat RADS 06/20/17 20:56 Completed Vital Signs: Temp Pulse Resp BP Pulse Ox 06/20/17 20:28 98.4 F 120 H 24 112/79 98 Departure - Departure Time of Disposition: 22:18 Disposition: HOME SELF-CARE Discharge Problem: Abdominal pain Instructions: Abdominal Pain (ED) Condition: Stable Pt referred to PMD for follow-up: Yes IPMP verified?: No Additional Instructions: Increase hydration soft diet Keep f/u with Dr Valentin Allergies/Adverse Reactions: Allergies No Known Allergies Allergy (Verified 06/20/17 20:34) Home Medications: Ambulatory Orders Multivitamin [Multi-Vitamin Daily] 1 each PO DAILY 05/06/17 Cyanocobalamin (Vitamin B-12) [Vitamin B12] 2,500 mcg PO DAILY 06/20/17 Mesalamine [Pentasa] 1,000 mg PO QID 06/20/17 Ondansetron HCl [Zofran Tab] 8 mg PO Q8H PRN 06/20/17 Disposition Discussed With: Patient
--- NOTE | 2017-06-20 21:32 | CT ---
EXAM: CT of the abdomen and pelvis without contrast. HISTORY: Pain. PROCEDURE: Contiguous axial CT images of the abdomen and pelvis without contrast with coronal and sa gittal reformats. FINDINGS: Comparison made with CT of 05/30/2017. The liver, gallbladder, pancreas, spleen and adrena l glands are normal in appearance. There are nonobstructive calcifications in both kidneys. The abdo kristy aorta is within normal limits in diameter. There is a right hemicolectomy. There is a moderate amount of fluid and air in the colon. No bowel obstruction. No free fluid or free air in the abdomen or pelvis. The bladder is minimally filled which limits the evaluation. There is questionable bladde r wall thickening suspicious for cystitis. The seminal vesicles and prostate gland are unremarkable. The bones and soft tissues are unremarkable. Impression: Nonspecific nonobstructive bowel gas pattern as described. Questionable bladder wall thickening suspicious for cystitis. Recommend correlation with urinary lakisha lysis. Right hemicolectomy. Nonobstructive bilateral nephrolithiasis.
[2017-06-20] MEDS ORDERED: ULTRAM PO STA (22:19)
== END 2017-06-20 22:41 | disposition home or self-care (01) ==
LOC: ED 20:27
DX: R10.9 Unspecified abdominal pain (principal); Z87.19 Personal history of other diseases of the digestive system
CPT/HCPCS: 36415; 80053; 80306; 81001; 85025; 99283

== ENCOUNTER 2017-06-27 12:57 | Emergency (ER) ==
[2017-06-27 13:01] VITALS: BP 120/86; TEMP 97.7; BMI 24.7
--- NOTE | 2017-06-27 13:02 | ED.PDOC ---
General ED Provider: Dr. JULEE GONZALEZ-ER Chief Complaint: Abdominal Pain Stated Complaint: this is my usual pain--no worse than usual--i ran out of the ultram i use for this--denies any fever, chills, vomiting or blood in the stool Time Seen by Physician: 13:00 Mode of Arrival: Walk-In Information Source: Patient Exam Limitations: No limitations Nursing and Triage Documentation Reviewed and Agree: Yes Reviewed sepsis parameters & appropriate labs ordered?: Yes System Inflammatory Response Syndrome: Not Applicable Sepsis Protocol: For patient's 13 years and over: Temp is 96.8 and below OR 101 and greater Pulse >90 BPM Resp >20/minute Acutely Altered Mental Status Are patient's symptoms suggestive of a new infection, such as: -Pneumonia -Skin, Soft Tissue -Endocarditis -UTI -Bone, Joint Infection -Implantable Device -Acute Abdominal Infection -Wound Infection -Meningitis -Blood Stream Catheter Infection -Unknown GI Complaint Exam - Abdominal Pain Complaint/Exam Onset: Gradual Duration: several days Symptoms Are: Still present Initial Severity: Mild Current Severity: Mild Location of Pain: Diffuse Radiates To: Denies: Chest, Back, Flank, LLQ, RLQ, Inguinal Character: Reports: Aching, Cramping Aggravating: Reports: None Alleviating: Reports: None Associated Signs and Symptoms: Reports: Decreased appetite. Denies: Diaphoresis , Fever, Cough, Chest pain, Dizziness, Back pain, Constipation, Blood in stool, Dysuria, Urinary frequency, Decreased urine output, Discharge, Nausea, Vomiting , Diarrhea, Decreased activity Related History: Reports: Similar episode (many many visits to the ed for same problem) Related Surgical History: Reports: Cholecystectomy Abdominal Findings: Absent: Pulsatile mass, Abdominal distention, Unequal femoral pulses, Rebound tenderness, Peritoneal signs, McBur[place]'s Point tender, CVA Tenderness, Hernia, Inguinal swelling Differential Diagnoses: Other (chronic abd pain) Review of Systems - Review Of Systems Constitutional: Reports: No symptoms Eyes: Reports: No symptoms Ears, Nose, Mouth, Throat: Reports: No symptoms Respiratory: Reports: No symptoms Cardiac: Reports: No symptoms GI: Reports: Abdominal pain. Denies: Rectal bleeding, Vomiting : Reports: No symptoms Musculoskeletal: Reports: No symptoms Skin: Reports: No symptoms Neurological: Reports: No symptoms Endocrine: Reports: No symptoms Hematologic/Lymphatic: Reports: No symptoms All Other Systems: Reviewed and Negative Past Medical History - Past Medical History Previously Healthy: Yes Endocrine: Reports: Hypothyroid, Dyslipidemia Cardiovascular: Reports: None Respiratory: Reports: None Hematological: Reports: None Gastrointestinal: Reports: GERD, Crohn's, Pancreatitis Genitourinary: Reports: Kidney stones Neuro/Psych: Reports: Depression Musculoskeletal: Reports: None Cancer: Reports: None - Surgical History General Surgical History: Reports: Other (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, INTESTINAL RESECTION) - Family History Family History: Reports: Unknown - Social History Smoking Status: Never smoker Hx Substance Use: No Alcohol Screening: None Lives: With family - Immunizations Influenza Vaccine within 12 Months: Yes Pneumococcal Vaccine up to Date: Yes Physical Exam - Physical Exam Appearance: Well-appearing, No pain distress, Well-nourished Pain Distress: Mild Eyes: DISHA, EOMI, Conjunctiva clear ENT: Ears normal, Nose normal, Oropharynx normal Neck: Supple Respiratory: Airway patent, Breath sounds clear, Breath sounds equal, Respirations nonlabored Cardiovascular: RRR, Pulses normal, No rub, No murmur GI/: Soft, Nontender, No masses, Bowel sounds normal, No Organomegaly Musculoskeletal: Normal strength, ROM intact, No edema, No calf tenderness Skin: Warm, Dry, Normal color Neurological: Sensation intact, Motor intact, Reflexes intact, Cranial nerves intact, Alert, Oriented Psychiatric: Affect appropriate, Mood appropriate Critical Care Note - Critical Care Note Total Time (mins): 0 Course - Course Orders, Labs, Meds: Ephraim has had many many evaluations in this ed for his chronic abd pain--he endorses his pain is the same without any worsening and denies any vomiting, fever , chills or blood in the stool--he declines any xrays or labs and says he just wants a refill of his ultram Vital Signs: Temp Pulse Resp BP Pulse Ox 06/27/17 12:57 97.7 F 112 H 20 120/86 100 Departure - Departure Time of Disposition: 13:05 Disposition: HOME SELF-CARE Discharge Problem: Chronic abdominal pain Instructions: Chronic Abdominal Pain (ED) Condition: Good Pt referred to PMD for follow-up: Yes IPMP verified?: No Additional Instructions: ultram 50mg q 6hrs prn pain #12--f/u with pcp Allergies/Adverse Reactions: Allergies No Known Allergies Allergy (Verified 06/27/17 13:03) Home Medications: Ambulatory Orders Multivitamin [Multi-Vitamin Daily] 1 each PO DAILY 05/06/17 Cyanocobalamin (Vitamin B-12) [Vitamin B12] 2,500 mcg PO DAILY 06/20/17 Mesalamine [Pentasa] 1,000 mg PO QID 06/20/17 Ondansetron HCl [Zofran Tab] 8 mg PO Q8H PRN 06/20/17 Disposition Discussed With: Patient
== END 2017-06-27 13:12 | disposition home or self-care (01) ==
LOC: ED 12:57
DX: R10.9 Unspecified abdominal pain (principal); G89.29 Other chronic pain; Z87.19 Personal history of other diseases of the digestive system
CPT/HCPCS: 99282; 99283

== ENCOUNTER 2017-07-03 18:00 | Emergency (ER) ==
[2017-07-03 18:07] VITALS: BP 119/76; TEMP 97.8; BMI 24.6
--- NOTE | 2017-07-03 20:05 | ED.PDOC ---
General ED Provider: Dr. SANTIAGO DANIELS Chief Complaint: Abdominal Pain Stated Complaint: Came for the chronic abdominal pain, this is 3 visit this month, when aasked, he says he does not have PMD,. he goes to Dr Longoria in [place] for GI. Time Seen by Physician: 20:03 Mode of Arrival: Walk-In Information Source: Patient Nursing and Triage Documentation Reviewed and Agree: Yes Reviewed sepsis parameters & appropriate labs ordered?: No System Inflammatory Response Syndrome: Not Applicable Sepsis Protocol: For patient's 13 years and over: Temp is 96.8 and below OR 101 and greater Pulse >90 BPM Resp >20/minute Acutely Altered Mental Status Are patient's symptoms suggestive of a new infection, such as: -Pneumonia -Skin, Soft Tissue -Endocarditis -UTI -Bone, Joint Infection -Implantable Device -Acute Abdominal Infection -Wound Infection -Meningitis -Blood Stream Catheter Infection -Unknown GI Complaint Exam - Abdominal Pain Complaint/Exam Onset: Gradual Symptoms Are: Still present Timing: Constant Initial Severity: Moderate Current Severity: Moderate Location of Pain: Diffuse Character: Reports: Dull, Aching Aggravating: Reports: Movement, Food Alleviating: Reports: None Associated Signs and Symptoms: Reports: Nausea. Denies: Diaphoresis, Fever, Cough, Chest pain, Dizziness, Back pain, Constipation, Blood in stool, Dysuria, Urinary frequency, Decreased urine output, Decreased appetite, Discharge, Vomiting, Diarrhea, Decreased activity AAA Risk Factors: Reports: None Cardiac Risk Factors: Reports: None Testicular Torsion Risk Factors: Reports: None Surgical Obstruction Risk Factors: Reports: None Related Surgical History: Reports: None Abdominal Findings: Absent: Pulsatile mass, Abdominal distention, Unequal femoral pulses, Rebound tenderness, Peritoneal signs Differential Diagnoses: Other (colitis,) Review of Systems - Review Of Systems Constitutional: Reports: No symptoms Eyes: Reports: No symptoms Ears, Nose, Mouth, Throat: Reports: No symptoms Respiratory: Reports: No symptoms Cardiac: Reports: No symptoms GI: Reports: Abdomen distended, Abdominal pain : Reports: No symptoms Musculoskeletal: Reports: No symptoms Skin: Reports: No symptoms Neurological: Reports: No symptoms Endocrine: Reports: No symptoms Hematologic/Lymphatic: Reports: No symptoms All Other Systems: Reviewed and Negative Past Medical History - Past Medical History Previously Healthy: Yes Endocrine: Reports: Hypothyroid, Dyslipidemia Cardiovascular: Reports: None Respiratory: Reports: None Hematological: Reports: None Gastrointestinal: Reports: GERD, Crohn's, Pancreatitis Genitourinary: Reports: Kidney stones Neuro/Psych: Reports: Depression Musculoskeletal: Reports: None Cancer: Reports: None - Surgical History General Surgical History: Reports: Other (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, INTESTINAL RESECTION) - Family History Family History: Reports: Unknown - Social History Smoking Status: Never smoker Hx Substance Use: No Alcohol Screening: None - Immunizations Influenza Vaccine within 12 Months: Yes Pneumococcal Vaccine up to Date: Yes Physical Exam - Physical Exam Appearance: Ill-appearing, No pain distress, Well-nourished Pain Distress: Moderate (per patient) Eyes: DISHA, EOMI, Conjunctiva clear ENT: Ears normal, Nose normal, Oropharynx normal Respiratory: Airway patent, Breath sounds clear, Breath sounds equal, Respirations nonlabored Cardiovascular: RRR, Pulses normal, No rub, No murmur GI/: Soft, Nontender, No masses, Bowel sounds normal, No Organomegaly Musculoskeletal: Normal strength, ROM intact, No edema, No calf tenderness Skin: Warm, Dry, Normal color Neurological: Sensation intact, Motor intact, Reflexes intact, Cranial nerves intact, Alert, Oriented Psychiatric: Affect appropriate, Mood appropriate Critical Care Note - Critical Care Note Total Time (mins): 20 Course - Course Vital Signs: Temp Pulse Resp BP Pulse Ox 07/03/17 18:01 97.8 F 112 H 20 119/76 98 Departure - Departure Time of Disposition: 20:07 Disposition: HOME SELF-CARE Discharge Problem: Abdominal pain Instructions: Abdominal Pain (ED) Condition: Stable Pt referred to PMD for follow-up: Yes IPMP verified?: No Additional Instructions: please keep f/u with Dr Longoria. Increase Hydration Allergies/Adverse Reactions: Allergies No Known Allergies Allergy (Verified 06/27/17 13:03) Home Medications: Ambulatory Orders Multivitamin [Multi-Vitamin Daily] 1 each PO DAILY 05/06/17 Cyanocobalamin (Vitamin B-12) [Vitamin B12] 2,500 mcg PO DAILY 06/20/17 Mesalamine [Pentasa] 1,000 mg PO QID 06/20/17 Ondansetron HCl [Zofran Tab] 8 mg PO Q8H PRN 06/20/17 Disposition Discussed With: Patient
[2017-07-03] MEDS ORDERED: ULTRAM PO STA (20:07)
== END 2017-07-03 20:30 | disposition home or self-care (01) ==
LOC: ED 18:00
DX: R10.9 Unspecified abdominal pain (principal); G89.29 Other chronic pain; Z87.19 Personal history of other diseases of the digestive system
CPT/HCPCS: 99284

== ENCOUNTER 2017-07-04 10:22 | Emergency (ER) ==
[2017-07-04 10:28] VITALS: BP 128/83; TEMP 97.1; BMI 30.7
--- NOTE | 2017-07-04 10:40 | ED.PDOC ---
General ED Provider: Dr. JULEE GONZALEZ-ER Chief Complaint: Abdominal Pain Stated Complaint: rey got that abdominal pain Time Seen by Physician: 10:38 Mode of Arrival: Walk-In Information Source: Patient Exam Limitations: No limitations Nursing and Triage Documentation Reviewed and Agree: Yes Reviewed sepsis parameters & appropriate labs ordered?: Yes System Inflammatory Response Syndrome: Not Applicable Sepsis Protocol: For patient's 13 years and over: Temp is 96.8 and below OR 101 and greater Pulse >90 BPM Resp >20/minute Acutely Altered Mental Status Are patient's symptoms suggestive of a new infection, such as: -Pneumonia -Skin, Soft Tissue -Endocarditis -UTI -Bone, Joint Infection -Implantable Device -Acute Abdominal Infection -Wound Infection -Meningitis -Blood Stream Catheter Infection -Unknown GI Complaint Exam - Abdominal Pain Complaint/Exam Onset: Gradual Duration: several days Symptoms Are: Still present Timing: Intermittent Initial Severity: Mild Current Severity: Mild Location of Pain: Diffuse Radiates To: Reports: Back Character: Reports: Dull, Aching Aggravating: Reports: None Alleviating: Reports: Spontaneous resolution Associated Signs and Symptoms: Reports: Nausea Related History: Reports: Similar episode Surgical Obstruction Risk Factors: Reports: Prior abdominal surgery Abdominal Findings: Present: None Differential Diagnoses: Other Review of Systems - Review Of Systems Constitutional: Reports: No symptoms Eyes: Reports: No symptoms Ears, Nose, Mouth, Throat: Reports: No symptoms Respiratory: Reports: No symptoms Cardiac: Reports: No symptoms GI: Reports: Abdominal pain, Nausea. Denies: Blood streaked bowels, Diarrhea, Vomiting : Reports: No symptoms Musculoskeletal: Reports: No symptoms Skin: Reports: No symptoms Neurological: Reports: No symptoms Endocrine: Reports: No symptoms Hematologic/Lymphatic: Reports: No symptoms All Other Systems: Reviewed and Negative Past Medical History - Past Medical History Previously Healthy: Yes Endocrine: Reports: Hypothyroid, Dyslipidemia Cardiovascular: Reports: None Respiratory: Reports: None Hematological: Reports: None Gastrointestinal: Reports: GERD, Crohn's, Pancreatitis Genitourinary: Reports: Kidney stones Neuro/Psych: Reports: Depression Musculoskeletal: Reports: None Cancer: Reports: None - Surgical History General Surgical History: Reports: Other (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, INTESTINAL RESECTION) - Family History Family History: Reports: Unknown - Social History Smoking Status: Never smoker Hx Substance Use: No Alcohol Screening: None - Immunizations Influenza Vaccine within 12 Months: Yes Pneumococcal Vaccine up to Date: Yes Physical Exam - Physical Exam Appearance: Well-appearing, No pain distress, Well-nourished Pain Distress: Mild Eyes: DISHA, EOMI, Conjunctiva clear ENT: Ears normal, Nose normal, Oropharynx normal Neck: Supple Respiratory: Airway patent, Breath sounds clear, Breath sounds equal, Respirations nonlabored Cardiovascular: RRR, Pulses normal, No rub, No murmur GI/: Soft, Nontender, No masses, Bowel sounds normal, No Organomegaly Musculoskeletal: Normal strength, ROM intact, No edema, No calf tenderness Skin: Warm, Dry, Normal color Neurological: Sensation intact, Motor intact, Reflexes intact, Cranial nerves intact, Alert, Oriented Psychiatric: Affect appropriate, Mood appropriate Critical Care Note - Critical Care Note Total Time (mins): 0 Course - Course Orders, Labs, Meds: Ephraim has chronic abd pain--he says the pain is the same without increased intensity, vomiting or fever --he ran out of his ultram and needs refill Vital Signs: Temp Pulse Resp BP Pulse Ox 07/04/17 10:23 97.1 F L 98 H 20 128/83 98 Departure - Departure Time of Disposition: 10:40 Disposition: HOME SELF-CARE Discharge Problem: Chronic abdominal pain Instructions: Chronic Abdominal Pain (ED) Condition: Good Pt referred to PMD for follow-up: Yes IPMP verified?: No Additional Instructions: ultram 50mg q 6hrs prn pain #15---f/u with pcp Allergies/Adverse Reactions: Allergies No Known Allergies Allergy (Verified 06/27/17 13:03) Home Medications: Ambulatory Orders Multivitamin [Multi-Vitamin Daily] 1 each PO DAILY 05/06/17 Cyanocobalamin (Vitamin B-12) [Vitamin B12] 2,500 mcg PO DAILY 06/20/17 Mesalamine [Pentasa] 1,000 mg PO QID 06/20/17 Ondansetron HCl [Zofran Tab] 8 mg PO Q8H PRN 06/20/17 Disposition Discussed With: Patient
== END 2017-07-04 10:46 | disposition home or self-care (01) ==
LOC: ED 10:22
DX: R10.9 Unspecified abdominal pain (principal); G89.29 Other chronic pain; Z87.19 Personal history of other diseases of the digestive system
CPT/HCPCS: 99283

== ENCOUNTER 2017-07-04 15:00 | Outpatient (CLI) ==
[2017-07-04 10:28] VITALS: BMI 30.7
== END 2017-07-04 15:01 | disposition short-term general hospital (02) ==
LOC: AMBL 15:00
PROVIDERS: ATTEND Family Medicine
DX: R10.9 Unspecified abdominal pain (principal); K50.90 Crohn's disease, unspecified, without complications

== ENCOUNTER 2017-07-08 19:17 | Outpatient (CLI) | END 2017-07-08 19:18 | disposition short-term general hospital (02) | LOC: AMBL 19:17 | PROVIDERS: ATTEND Emergency Medicine | DX: R10.9 Unspecified abdominal pain (principal); K50.90 Crohn's disease, unspecified, without complications; R00.0 Tachycardia, unspecified; R11.10 Vomiting, unspecified ==

== ENCOUNTER 2017-07-11 14:42 | Emergency (ER) ==
[2017-07-11 14:46] VITALS: BP 134/92; TEMP 98.9; BMI 25.0
--- NOTE | 2017-07-11 14:56 | ED.PDOC ---
General ED Provider: Dr. JLUEE GONZALEZ-ER Chief Complaint: Abdominal Pain Stated Complaint: im still hurting--no difference in the pain--denies any nausea , vomiting or fever Time Seen by Physician: 14:51 Mode of Arrival: Walk-In Information Source: Patient Exam Limitations: No limitations Nursing and Triage Documentation Reviewed and Agree: Yes Reviewed sepsis parameters & appropriate labs ordered?: Yes System Inflammatory Response Syndrome: Not Applicable Sepsis Protocol: For patient's 13 years and over: Temp is 96.8 and below OR 101 and greater Pulse >90 BPM Resp >20/minute Acutely Altered Mental Status Are patient's symptoms suggestive of a new infection, such as: -Pneumonia -Skin, Soft Tissue -Endocarditis -UTI -Bone, Joint Infection -Implantable Device -Acute Abdominal Infection -Wound Infection -Meningitis -Blood Stream Catheter Infection -Unknown GI Complaint Exam - Abdominal Pain Complaint/Exam Onset: Gradual Duration: several days Symptoms Are: Still present Timing: Constant Initial Severity: Mild Current Severity: Moderate Location of Pain: Diffuse Character: Reports: Dull, Aching Aggravating: Reports: None Alleviating: Reports: Spontaneous resolution Associated Signs and Symptoms: Denies: Diaphoresis, Fever, Cough, Chest pain, Dizziness, Back pain, Constipation, Blood in stool, Dysuria, Urinary frequency, Decreased urine output, Decreased appetite, Discharge, Nausea, Vomiting, Diarrhea, Decreased activity Differential Diagnoses: Other Review of Systems - Review Of Systems Constitutional: Reports: No symptoms Eyes: Reports: No symptoms Ears, Nose, Mouth, Throat: Reports: No symptoms Respiratory: Reports: No symptoms Cardiac: Reports: No symptoms GI: Reports: Abdominal pain. Denies: Blood streaked bowels, Constipated, Diarrhea, Difficulty swallowing, Nausea, Poor appetite, Poor fluid intake, Rectal bleeding, Vomiting : Reports: No symptoms Musculoskeletal: Reports: No symptoms Skin: Reports: No symptoms Neurological: Reports: No symptoms Endocrine: Reports: No symptoms Hematologic/Lymphatic: Reports: No symptoms All Other Systems: Reviewed and Negative Past Medical History - Past Medical History Previously Healthy: Yes Endocrine: Reports: Hypothyroid, Dyslipidemia Cardiovascular: Reports: None Respiratory: Reports: None Hematological: Reports: None Gastrointestinal: Reports: GERD, Crohn's, Pancreatitis Genitourinary: Reports: Kidney stones Neuro/Psych: Reports: Depression Musculoskeletal: Reports: None Cancer: Reports: None - Surgical History General Surgical History: Reports: Other (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, INTESTINAL RESECTION) - Family History Family History: Reports: Unknown - Social History Smoking Status: Never smoker Hx Substance Use: No Alcohol Screening: None - Immunizations Tetanus Shot up to Date: No Influenza Vaccine within 12 Months: Yes Pneumococcal Vaccine up to Date: Yes Physical Exam - Physical Exam Appearance: Well-appearing Eyes: DISHA, EOMI, Conjunctiva clear ENT: Ears normal, Nose normal, Oropharynx normal Neck: Supple Respiratory: Airway patent Cardiovascular: RRR, Pulses normal, No rub, No murmur GI/: Soft, Nontender, No masses, Bowel sounds normal, No Organomegaly Musculoskeletal: Normal strength, ROM intact, No edema, No calf tenderness Skin: Warm, Dry, Normal color Neurological: Sensation intact Psychiatric: Affect appropriate, Mood appropriate Critical Care Note - Critical Care Note Total Time (mins): 0 Course - Course Orders, Labs, Meds: Ephraim has chronic abd pain and has been seen here and at [facility]--his pain has not changed in character and denies any "red flag symptoms " such as fever, vomiting or blood in the stool--he has had multiple ct scans and further rad exposure is risky without justification such as "red flag symptoms" for his abd pain Vital Signs: Temp Pulse Resp BP Pulse Ox 07/11/17 14:43 98.9 F 107 H 18 134/92 H 98 Departure - Departure Time of Disposition: 14:56 Disposition: HOME SELF-CARE Discharge Problem: Chronic abdominal pain Instructions: Chronic Abdominal Pain (ED) Condition: Good Pt referred to PMD for follow-up: Yes IPMP verified?: No Additional Instructions: ultram 50mg q 6hrs prn pain #15--keep appt wtih pcp Allergies/Adverse Reactions: Allergies No Known Allergies Allergy (Verified 07/11/17 14:47) Home Medications: Ambulatory Orders Multivitamin [Multi-Vitamin Daily] 1 each PO DAILY 05/06/17 Cyanocobalamin (Vitamin B-12) [Vitamin B12] 2,500 mcg PO DAILY 06/20/17 Mesalamine [Pentasa] 1,000 mg PO QID 06/20/17 Ondansetron HCl [Zofran Tab] 8 mg PO Q8H PRN 06/20/17 Disposition Discussed With: Patient
== END 2017-07-11 15:13 | disposition home or self-care (01) ==
LOC: ED 14:42
DX: R10.84 Generalized abdominal pain (principal); G89.29 Other chronic pain; Z87.19 Personal history of other diseases of the digestive system
CPT/HCPCS: 99283

== ENCOUNTER 2017-07-17 08:29 | Emergency (ER) ==
[2017-07-17 08:37] VITALS: BP 123/79; TEMP 97.9; BMI 25.7
--- NOTE | 2017-07-17 09:13 | CT ---
EXAM: CT abdomen pelvis without contrast HISTORY: Pain, chronic abdominal pain, Crohn disease, nausea, diarrhea COMPARISON: 06/20/2017 TECHNIQUE: CT abdomen pelvis performed without intravenous contrast. Coronal and sagittal reformatt ed images obtained. FINDINGS: Granulomatous calcification lower chest. No free air. No acute abnormalities of the bone s. Limbus vertebra at L4. Heart normal in size. Evaluation organ parenchyma limited without contra st. Liver appears normal. Gallbladder appears normal. Pancreas appears normal. Spleen appears nor mal. Adrenals appear normal. Left and possibly a right nonobstructing renal calculi. A few hyperde nse foci in the kidneys probably hyperdense cysts. Additional sub centimeter right renal cyst. No h ydronephrosis. No calculi visualized in normal course of the ureters. There is perivesicular strand ing that is similar to prior examination. Prostate normal in size. Aorta normal in caliber. No lym phadenopathy or ascites. Stomach appears normal. No dilated loops small bowel. Possible wall thicke kati of a loop of distal small bowel in a right abdomen. Postsurgical changes of right hemicolectomy. Fluid in the colon. Increased submucosal fat deposition in the rectosigmoid colon IMPRESSION: 1. Postsurgical changes of right hemicolectomy. Possible wall thickening of a loop of small bowel i n the distal right abdomen that may be due to enteritis in this patient with a history of Crohn disea se. No bowel obstruction. 2. Fluid in the colon consistent with history of diarrhea. 3. Increased submucosal fat deposition in the rectosigmoid colon, suggesting sequela of prior inflam mation or infection in this patient with history of Crohn disease. 4. Perivesicular stranding appears unchanged and can be correlated for cystitis. 5. Left and possibly right nonobstructing renal calculi. Additional hyperdensities in the kidneys l ikely proteinaceous and/or hemorrhagic cysts.
[2017-07-17] MEDS ORDERED: ULTRAM PO STA (09:33)
--- NOTE | 2017-07-17 09:36 | ED.PDOC ---
General ED Provider: Dr. SHARAN MCHUGH Chief Complaint: Abdominal Pain Stated Complaint: abdominal pain Time Seen by Physician: 08:30 (seen with PETR [facility] AND SOBIA BAEZ RN) Mode of Arrival: Walk-In Information Source: Patient Exam Limitations: No limitations Nursing and Triage Documentation Reviewed and Agree: Yes Reviewed sepsis parameters & appropriate labs ordered?: Yes System Inflammatory Response Syndrome: Not Applicable Sepsis Protocol: For patient's 13 years and over: Temp is 96.8 and below OR 101 and greater Pulse >90 BPM Resp >20/minute Acutely Altered Mental Status Are patient's symptoms suggestive of a new infection, such as: -Pneumonia -Skin, Soft Tissue -Endocarditis -UTI -Bone, Joint Infection -Implantable Device -Acute Abdominal Infection -Wound Infection -Meningitis -Blood Stream Catheter Infection -Unknown System Inflammatory Response Syndrome: Not Applicable GI Complaint Exam - Abdominal Pain Complaint/Exam Onset: Gradual Duration: 1 day Symptoms Are: Still present Timing: Intermittent Initial Severity: Moderate Current Severity: Moderate Location of Pain: Diffuse Character: Reports: Cramping Aggravating: Reports: Food Alleviating: Reports: None Associated Signs and Symptoms: Denies: Diaphoresis, Fever, Cough, Chest pain, Dizziness, Back pain, Constipation, Blood in stool, Dysuria, Urinary frequency, Decreased urine output, Decreased appetite, Discharge, Nausea, Vomiting, Diarrhea, Decreased activity Related History: Reports: Similar episode AAA Risk Factors: Reports: None Cardiac Risk Factors: Reports: None Testicular Torsion Risk Factors: Reports: None Surgical Obstruction Risk Factors: Reports: None Related Surgical History: Reports: None Abdominal Findings: Present: None Review of Systems - Review Of Systems Constitutional: Reports: No symptoms Eyes: Reports: No symptoms Ears, Nose, Mouth, Throat: Reports: No symptoms Respiratory: Reports: No symptoms Cardiac: Reports: No symptoms GI: Reports: Abdominal pain : Reports: No symptoms Musculoskeletal: Reports: No symptoms Skin: Reports: No symptoms Neurological: Reports: No symptoms Endocrine: Reports: No symptoms Hematologic/Lymphatic: Reports: No symptoms All Other Systems: Reviewed and Negative Past Medical History - Past Medical History Previously Healthy: Yes Endocrine: Reports: Hypothyroid, Dyslipidemia Cardiovascular: Reports: None Respiratory: Reports: None Hematological: Reports: None Gastrointestinal: Reports: GERD, Crohn's, Pancreatitis Genitourinary: Reports: Kidney stones Neuro/Psych: Reports: Depression Musculoskeletal: Reports: None Cancer: Reports: None - Surgical History General Surgical History: Reports: Other (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, INTESTINAL RESECTION) - Family History Family History: Reports: Unknown - Social History Smoking Status: Never smoker Hx Substance Use: No Alcohol Screening: None - Immunizations Influenza Vaccine within 12 Months: Yes Pneumococcal Vaccine up to Date: Yes Physical Exam - Physical Exam Appearance: Well-appearing, No pain distress, Well-nourished Eyes: DISHA, EOMI, Conjunctiva clear ENT: Ears normal, Nose normal, Oropharynx normal Respiratory: Airway patent, Breath sounds clear, Breath sounds equal, Respirations nonlabored Cardiovascular: RRR, Pulses normal, No rub, No murmur GI/: Soft, Nontender, No masses, Bowel sounds normal, No Organomegaly Musculoskeletal: Normal strength, ROM intact, No edema, No calf tenderness Skin: Warm, Dry, Normal color Neurological: Sensation intact, Motor intact, Reflexes intact, Cranial nerves intact, Alert, Oriented Psychiatric: Affect appropriate, Mood appropriate Interpretation - Radiology Interpretation Radiology Interpretation By: Radiologist Radiology Results: No acute changes Critical Care Note - Critical Care Note Total Time (mins): 0 Course - Course Hematology/Chemistry: 07/17/17 08:55 07/17/17 08:55 Orders, Labs, Meds: Lab Review 07/17/17 07/17/17 07/17/17 08:55 08:55 08:55 WBC 7.11 RBC 3.67 L Hgb 11.2 L Hct 32.2 L MCV 87.7 MCH 30.5 MCHC 34.8 RDW Coeff of Svitlana 12.7 Plt Count 193 Immature Gran % (Auto) 1.1 Neut % (Auto) 57.8 Lymph % (Auto) 28.7 [place] % (Auto) 9.7 Eos % (Auto) 2.4 Baso % (Auto) 0.3 Immature Gran # (Auto) 0.1 Neut # (Auto) 4.1 Lymph # (Auto) 2.0 [place] # (Auto) 0.7 Eos # (Auto) 0.2 Baso # (Auto) 0.0 Sodium 141 Potassium 4.1 Chloride 108 H Carbon Dioxide 22 Anion Gap 15.1 BUN 9 Creatinine 0.79 Estimated GFR (MDRD) 113.00 BUN/Creatinine Ratio 11.39 Glucose 94 Calcium 9.2 Total Bilirubin 0.3 AST 16 ALT 25 Alkaline Phosphatase 88 Total Protein 7.1 Albumin 3.6 Globulin 3.5 Albumin/Globulin Ratio 1.03 Urine Color Yellow Urine Clarity Clear Urine pH 6.0 Ur Specific [place] 1.025 Urine Protein Negative Urine Glucose (UA) Negative Urine Ketones Negative Urine Blood Negative Urine Nitrite Negative Urine Bilirubin Negative Urine Urobilinogen 0.2 Ur Leukocyte Esterase Negative Orders Category Date Time Status CBC W/ AUTO DIFF Stat LAB 07/17/17 08:39 Ordered COMPREHENSIVE METABOLIC PANEL Stat LAB 07/17/17 08:39 Ordered URINALYSIS C & S IF INDICATED Stat LAB 07/17/17 08:40 Uncollected Tramadol HCl [Ultram] MEDS 07/17/17 09:33 Stat 50 mg PO ONCE STA CT ABDOMEN/PELVIS WO CONTRAST Stat RADS 07/17/17 08:39 Ordered Medications Generic Name Dose Route Start Last Admin Trade Name Freq PRN Reason Stop Dose Admin Tramadol HCl 50 mg 07/17/17 09:33 Ultram PO 07/17/17 09:34 ONCE STA Vital Signs: Temp Pulse Resp BP Pulse Ox 07/17/17 08:30 97.9 F 96 H 16 123/79 99 Departure - Departure Time of Disposition: 09:35 Disposition: HOME SELF-CARE Discharge Problem: Abdominal pain Instructions: Abdominal Pain (ED) Condition: Good Pt referred to PMD for follow-up: Yes IPMP verified?: No Additional Instructions: Please call your Family Physician as soon as possible to schedule a follow-up appointment. Allergies/Adverse Reactions: Allergies No Known Allergies Allergy (Verified 07/17/17 08:38) Home Medications: Ambulatory Orders Multivitamin [Multi-Vitamin Daily] 1 each PO DAILY 05/06/17 Cyanocobalamin (Vitamin B-12) [Vitamin B12] 2,500 mcg PO DAILY 06/20/17 Mesalamine [Pentasa] 1,000 mg PO QID 06/20/17 Ondansetron HCl [Zofran Tab] 8 mg PO Q8H PRN 06/20/17
== END 2017-07-17 09:45 | disposition home or self-care (01) ==
LOC: ED 08:29
DX: R10.84 Generalized abdominal pain (principal); K50.90 Crohn's disease, unspecified, without complications; K21.9 Gastro-esophageal reflux disease without esophagitis; Z79.899 Other long term (current) drug therapy; Z90.49 Acquired absence of other specified parts of digestive tract
CPT/HCPCS: 36415; 80053; 81001; 85025; 99283

== ENCOUNTER 2017-07-25 17:05 | Emergency (ER) ==
[2017-07-25 17:11] VITALS: BP 142/86; TEMP 98.1; BMI 24.7
--- NOTE | 2017-07-25 17:17 | ED.PDOC ---
General ED Provider: Dr. JULEE GONZALEZ-ER Chief Complaint: Abdominal Pain Stated Complaint: im hursera--rey been out of ultram for about 4 days Time Seen by Physician: 17:13 Mode of Arrival: Walk-In Information Source: Patient Exam Limitations: No limitations Primary Care Provider: ALIZA CHAVARRIA Nursing and Triage Documentation Reviewed and Agree: Yes Reviewed sepsis parameters & appropriate labs ordered?: Yes System Inflammatory Response Syndrome: Not Applicable Sepsis Protocol: For patient's 13 years and over: Temp is 96.8 and below OR 101 and greater Pulse >90 BPM Resp >20/minute Acutely Altered Mental Status Are patient's symptoms suggestive of a new infection, such as: -Pneumonia -Skin, Soft Tissue -Endocarditis -UTI -Bone, Joint Infection -Implantable Device -Acute Abdominal Infection -Wound Infection -Meningitis -Blood Stream Catheter Infection -Unknown GI Complaint Exam - Abdominal Pain Complaint/Exam Onset: Gradual Duration: several mos Symptoms Are: Still present Timing: Constant Initial Severity: Mild Current Severity: Moderate Location of Pain: Diffuse Character: Reports: Dull, Aching, Cramping Aggravating: Reports: None Associated Signs and Symptoms: Denies: Diaphoresis, Fever, Cough, Chest pain, Dizziness, Back pain, Constipation, Blood in stool, Dysuria, Urinary frequency, Decreased urine output, Decreased appetite, Discharge, Nausea, Vomiting, Diarrhea, Decreased activity Differential Diagnoses: Constipation Review of Systems - Review Of Systems Constitutional: Reports: No symptoms Eyes: Reports: No symptoms Ears, Nose, Mouth, Throat: Reports: No symptoms Respiratory: Reports: No symptoms Cardiac: Reports: No symptoms GI: Reports: Abdominal pain : Reports: No symptoms Musculoskeletal: Reports: No symptoms Skin: Reports: No symptoms Neurological: Reports: No symptoms Endocrine: Reports: No symptoms Hematologic/Lymphatic: Reports: No symptoms All Other Systems: Reviewed and Negative Past Medical History - Past Medical History Previously Healthy: Yes Endocrine: Reports: Hypothyroid, Dyslipidemia Cardiovascular: Reports: None Respiratory: Reports: None Hematological: Reports: None Gastrointestinal: Reports: GERD, Crohn's, Pancreatitis Genitourinary: Reports: Kidney stones Neuro/Psych: Reports: Depression Musculoskeletal: Reports: None Cancer: Reports: None - Surgical History General Surgical History: Reports: Other (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, INTESTINAL RESECTION) - Family History Family History: Reports: Unknown - Social History Smoking Status: Never smoker Hx Substance Use: No (frequent visits for pain med) Alcohol Screening: None - Immunizations Influenza Vaccine within 12 Months: Yes Pneumococcal Vaccine up to Date: Yes Physical Exam - Physical Exam Appearance: Well-appearing Eyes: DISHA ENT: Ears normal, Nose normal, Oropharynx normal Neck: Supple Respiratory: Airway patent, Breath sounds clear, Breath sounds equal, Respirations nonlabored Cardiovascular: RRR, Pulses normal, No rub, No murmur GI/: Soft, Nontender, No masses, Bowel sounds normal, No Organomegaly Musculoskeletal: Normal strength Skin: Warm, Dry, Normal color Neurological: Sensation intact, Motor intact, Reflexes intact, Cranial nerves intact, Alert, Oriented Psychiatric: Affect appropriate, Mood appropriate Critical Care Note - Critical Care Note Total Time (mins): 0 Course - Course Orders, Labs, Meds: Ephraim has chronic abd pain--has had multiple er visits for the same pain--Ephraim denies any change in the pain--denies any vomiting fever or increased severity of pain--he had not warning red flag symptoms today to warrant reimaging Vital Signs: Temp Pulse Resp BP Pulse Ox 07/25/17 17:07 98.1 F 102 H 20 142/86 H 98 Departure - Departure Time of Disposition: 17:17 Disposition: HOME SELF-CARE Discharge Problem: Chronic abdominal pain Instructions: Chronic Abdominal Pain (ED) Condition: Good Pt referred to PMD for follow-up: Yes IPMP verified?: No Additional Instructions: ultram 50mg q 6hrs prn pain #12--f/u with pcp Allergies/Adverse Reactions: Allergies No Known Allergies Allergy (Verified 07/17/17 08:38) Home Medications: Ambulatory Orders Multivitamin [Multi-Vitamin Daily] 1 each PO DAILY 05/06/17 Cyanocobalamin (Vitamin B-12) [Vitamin B12] 2,500 mcg PO DAILY 06/20/17 Ondansetron HCl [Zofran Tab] 8 mg PO Q8H PRN 06/20/17 Disposition Discussed With: Patient
== END 2017-07-25 17:49 | disposition home or self-care (01) ==
LOC: ED 17:05
DX: R10.9 Unspecified abdominal pain (principal); G89.29 Other chronic pain; Z87.19 Personal history of other diseases of the digestive system
CPT/HCPCS: 99282

== ENCOUNTER 2017-08-08 22:53 | Emergency (ER) ==
[2017-08-08 23:08] VITALS: BP 124/71; TEMP 98.1; BMI 25.1
[2017-08-08] MEDS ORDERED: ZOFRAN 4 MG/2 ML IM STA (23:14)
[2017-08-08] MEDS ORDERED: SOLU-MEDROL 125 MG IVP STA (23:14)
--- NOTE | 2017-08-08 23:24 | ED.PDOC ---
General ED Provider: Dr. URMILA TRAMMELL Chief Complaint: Abdominal Pain Stated Complaint: chronic abdominal pain like usual. Has no primary PCP. States he was here on week ago and was given a prescription of Ultrum which he has run out of. States he wants a Refill. Time Seen by Physician: 23:23 Mode of Arrival: Walk-In Information Source: Patient Exam Limitations: No limitations Primary Care Provider: ALIZA CHAVARRIA Nursing and Triage Documentation Reviewed and Agree: Yes Reviewed sepsis parameters & appropriate labs ordered?: Yes System Inflammatory Response Syndrome: Not Applicable Sepsis Protocol: For patient's 13 years and over: Temp is 96.8 and below OR 101 and greater Pulse >90 BPM Resp >20/minute Acutely Altered Mental Status Are patient's symptoms suggestive of a new infection, such as: -Pneumonia -Skin, Soft Tissue -Endocarditis -UTI -Bone, Joint Infection -Implantable Device -Acute Abdominal Infection -Wound Infection -Meningitis -Blood Stream Catheter Infection -Unknown System Inflammatory Response Syndrome: Not Applicable Review of Systems - Review Of Systems Constitutional: Reports: No symptoms Eyes: Reports: No symptoms Ears, Nose, Mouth, Throat: Reports: No symptoms Respiratory: Reports: No symptoms Cardiac: Reports: No symptoms GI: Reports: Abdominal pain : Reports: No symptoms Musculoskeletal: Reports: No symptoms Skin: Reports: No symptoms Neurological: Reports: No symptoms Endocrine: Reports: No symptoms Hematologic/Lymphatic: Reports: No symptoms All Other Systems: Reviewed and Negative Past Medical History - Past Medical History Previously Healthy: Yes Endocrine: Reports: Hypothyroid, Dyslipidemia Cardiovascular: Reports: None Respiratory: Reports: None Hematological: Reports: None Gastrointestinal: Reports: GERD, Crohn's, Pancreatitis Genitourinary: Reports: Kidney stones Neuro/Psych: Reports: Depression Musculoskeletal: Reports: None Cancer: Reports: None - Surgical History General Surgical History: Reports: Other (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, INTESTINAL RESECTION) - Family History Family History: Reports: Unknown - Social History Smoking Status: Never smoker Hx Substance Use: No (frequent visits for pain med) Alcohol Screening: None - Immunizations Tetanus Shot up to Date: Yes Influenza Vaccine within 12 Months: Yes Pneumococcal Vaccine up to Date: Yes Physical Exam - Physical Exam Appearance: Ill-appearing Ill-appearing: Mild Pain Distress: Moderate Neck: Supple Respiratory: Airway patent, Breath sounds clear, Breath sounds equal, Respirations nonlabored Cardiovascular: RRR, Pulses normal, No rub, No murmur GI/: Tender Musculoskeletal: Normal strength, ROM intact, No edema, No calf tenderness Skin: Warm, Dry, Normal color Neurological: Sensation intact, Motor intact, Reflexes intact, Cranial nerves intact, Alert, Oriented Critical Care Note - Critical Care Note Total Time (mins): 0 Course - Course Orders, Labs, Meds: Orders Category Date Time Status Ketorolac Tromethamine [Toradol] MEDS 08/08/17 23:14 Discontinued 60 mg IM ONCE STA Methylprednisolone Sod Succ/Pf [Solu-Medrol 125 mg] MEDS 08/08/17 23:25 Discontinued 125 mg IM ONCE STA Ondansetron HCl/Pf [Zofran 4 mg/2 ml] MEDS 08/08/17 23:14 Discontinued 4 mg IM ONCE STA Medications Discontinued Medications Generic Name Dose Route Start Last Admin Trade Name Freq PRN Reason Stop Dose Admin Ketorolac Tromethamine 60 mg 08/08/17 23:14 08/08/17 23:44 Toradol IM 08/08/17 23:15 Not Given ONCE STA Methylprednisolone Sodium Succinate 125 mg 08/08/17 23:25 08/08/17 23:42 Solu-Medrol 125 Mg IM 08/08/17 23:26 Not Given ONCE STA Ondansetron HCl 4 mg 08/08/17 23:14 08/08/17 23:36 Zofran 4 Mg/2 Ml IM 08/08/17 23:15 4 mg ONCE STA Administration Vital Signs: Temp Pulse Resp BP Pulse Ox 08/08/17 22:57 98.1 F 97 H 22 124/71 99 Departure - Departure Time of Disposition: 23:24 Disposition: HOME SELF-CARE Discharge Problem: Abdominal pain Instructions: Chronic Abdominal Pain (ED) Condition: Stable Pt referred to PMD for follow-up: Yes IPMP verified?: No Additional Instructions: Follow up with PCP to prescribe you pain medications. push fluids. Prescriptions: Ondansetron HCl [Zofran Tab] 4 mg PO Q8H PRN #14 tablet PRN Reason: Nausea / Vomiting Allergies/Adverse Reactions: Allergies No Known Allergies Allergy (Verified 08/08/17 23:02) Home Medications: Ambulatory Orders Multivitamin [Multi-Vitamin Daily] 1 each PO DAILY 05/06/17 Cyanocobalamin (Vitamin B-12) [Vitamin B12] 2,500 mcg PO DAILY 06/20/17 Ondansetron HCl [Zofran Tab] 4 mg PO Q8H PRN #14 tablet 08/08/17 Disposition Discussed With: Patient
[2017-08-08] MEDS: SOLU-MEDROL 125 MG IM STA ×2 (23:35→23:42)
[2017-08-08] MEDS: TORADOL IM STA ×2 (23:35→23:44)
== END 2017-08-09 00:35 | disposition home or self-care (01) ==
LOC: ED 22:53
DX: R10.9 Unspecified abdominal pain (principal); G89.29 Other chronic pain; Z87.19 Personal history of other diseases of the digestive system
CPT/HCPCS: 96372; 99283

== ENCOUNTER 2017-08-15 09:54 | Emergency (ER) ==
[2017-08-15 09:58] VITALS: BP 116/84; TEMP 98.4; BMI 25.0
--- NOTE | 2017-08-15 10:24 | ED.PDOC ---
General ED Provider: Dr. JULEE ACE Chief Complaint: Abdominal Pain Stated Complaint: Chronic abdominal pain along with athritic pain in his feet and ankle. 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 Has underwent major surgery in the past at [facility] with bowel resection and fisula repair. does not have a physician for management of his conditon. Time Seen by Physician: 10:15 Mode of Arrival: Walk-In Information Source: Patient Exam Limitations: No limitations Nursing and Triage Documentation Reviewed and Agree: Yes Reviewed sepsis parameters & appropriate labs ordered?: Yes System Inflammatory Response Syndrome: Not Applicable Sepsis Protocol: For patient's 13 years and over: Temp is 96.8 and below OR 101 and greater Pulse >90 BPM Resp >20/minute Acutely Altered Mental Status Are patient's symptoms suggestive of a new infection, such as: -Pneumonia -Skin, Soft Tissue -Endocarditis -UTI -Bone, Joint Infection -Implantable Device -Acute Abdominal Infection -Wound Infection -Meningitis -Blood Stream Catheter Infection -Unknown GI Complaint Exam - Abdominal Pain Complaint/Exam Onset: Gradual Symptoms Are: Still present Timing: Intermittent Initial Severity: Moderate Current Severity: Mild Location of Pain: Diffuse (mid abdomen) Radiates To: Reports: Back Character: Reports: Sharp, Aching, Cramping Aggravating: Reports: None (unknown) Alleviating: Reports: OTC analgesics (Tylenol Reduced discomfort from 6 to a 3) Associated Signs and Symptoms: Reports: Nausea. Denies: Diaphoresis, Fever, Cough, Chest pain, Dizziness, Back pain, Constipation, Blood in stool, Dysuria, Urinary frequency, Decreased urine output, Decreased appetite, Discharge, Vomiting, Diarrhea, Decreased activity Related History: Reports: Similar episode AAA Risk Factors: Reports: None Cardiac Risk Factors: Reports: None Surgical Obstruction Risk Factors: Reports: None Related Surgical History: Reports: Bowel Resection Abdominal Findings: Present: None Differential Diagnoses: Other (Crohn's disease) Review of Systems - Review Of Systems Constitutional: Reports: No symptoms Eyes: Reports: No symptoms Ears, Nose, Mouth, Throat: Reports: No symptoms Respiratory: Reports: No symptoms Cardiac: Reports: No symptoms GI: Reports: Abdominal pain : Reports: No symptoms Musculoskeletal: Reports: Joint pain (Feet and ankles) Skin: Reports: No symptoms Neurological: Reports: No symptoms Endocrine: Reports: No symptoms Hematologic/Lymphatic: Reports: No symptoms All Other Systems: Reviewed and Negative Past Medical History - Past Medical History Previously Healthy: Yes Endocrine: Reports: Hypothyroid, Dyslipidemia Cardiovascular: Reports: None Respiratory: Reports: None Hematological: Reports: None Gastrointestinal: Reports: GERD, Crohn's, Pancreatitis Genitourinary: Reports: Kidney stones Neuro/Psych: Reports: Depression Musculoskeletal: Reports: None Cancer: Reports: None - Surgical History General Surgical History: Reports: Other (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, INTESTINAL RESECTION) - Family History Family History: Reports: Unknown - Social History Smoking Status: Never smoker Hx Substance Use: No (frequent visits for pain med) Alcohol Screening: None - Immunizations Influenza Vaccine within 12 Months: Yes Pneumococcal Vaccine up to Date: Yes Physical Exam - Physical Exam Appearance: Well-appearing, No pain distress Ill-appearing: None Pain Distress: None Eyes: DISHA, EOMI, Conjunctiva clear ENT: Ears normal, Nose normal, Oropharynx normal Respiratory: Airway patent, Breath sounds clear, Breath sounds equal, Respirations nonlabored Cardiovascular: RRR, Pulses normal, No rub, No murmur GI/: Soft, Nontender, No masses, Bowel sounds normal, No Organomegaly Musculoskeletal: Normal strength, ROM intact, No edema, No calf tenderness Skin: Warm, Dry, Normal color Neurological: Sensation intact, Motor intact, Reflexes intact, Cranial nerves intact, Alert, Oriented Psychiatric: Depressed (affect flattened-STATES NOT TAKING ANY MEDS) Interpretation - Radiology Interpretation Radiology Interpretation By: Radiologist Exam Interpreted: CT Scan Xray Comments: abdomen Re-Evaluation - Re-Evaluation Time of Re-Evaluation: 13:00 Status: Improved Vital Signs Stable: Yes Pain Level: 2/10 Appearance: NAD Lungs: Clear Skin: Warm and Dry Neuro: Alert and Oriented X3 CV: RRR Additional Comments: Explained results testing, Critical Care Note - Critical Care Note Total Time (mins): 0 Course - Course Hematology/Chemistry: 08/15/17 11:15 08/15/17 11:15 Orders, Labs, Meds: Lab Review 08/15/17 08/15/17 08/15/17 11:15 11:15 11:15 WBC 7.55 RBC 4.22 L Hgb 12.7 L Hct 36.2 L MCV 85.8 MCH 30.1 MCHC 35.1 RDW Coeff of Svitlana 12.4 Plt Count 223 Immature Gran % (Auto) 0.3 Neut % (Auto) 64.4 Lymph % (Auto) 25.4 Chester % (Auto) 8.6 Eos % (Auto) 1.2 Baso % (Auto) 0.1 Immature Gran # (Auto) 0.0 Neut # (Auto) 4.9 Lymph # (Auto) 1.9 Chester # (Auto) 0.7 Eos # (Auto) 0.1 Baso # (Auto) 0.0 ESR 18 H Sodium 138 Potassium 3.7 Chloride 107 Carbon Dioxide 20 L Anion Gap 14.7 BUN 11 Creatinine 0.98 Estimated GFR (MDRD) 88.00 BUN/Creatinine Ratio 11.22 Glucose 95 Calcium 9.6 Total Bilirubin 0.4 AST 19 ALT 38 Alkaline Phosphatase 123 Total Protein 7.9 Albumin 3.9 Globulin 4.0 Albumin/Globulin Ratio 0.98 Lipase 35 Urine Color Urine Clarity Urine pH Ur Specific [place] Urine Protein Urine Glucose (UA) Urine Ketones Urine Blood Urine Nitrite Urine Bilirubin Urine Urobilinogen Ur Leukocyte Esterase Urine Microscopic WBC Ur Squamous Epith Cells Urine Opiates Screen Ur Oxycodone Screen Urine Methadone Screen Ur Propoxyphene Screen Ur Barbiturates Screen U Tricyclic Antidepress Ur Phencyclidine Scrn Ur Amphetamine Screen U Methamphetamines Scrn U Benzodiazepines Scrn Urine Cocaine Screen U Cannabinoids Screen 08/15/17 08/15/17 12:26 12:26 WBC RBC Hgb Hct MCV MCH MCHC RDW Coeff of Svitlana Plt Count Immature Gran % (Auto) Neut % (Auto) Lymph % (Auto) [place] % (Auto) Eos % (Auto) Baso % (Auto) Immature Gran # (Auto) Neut # (Auto) Lymph # (Auto) [place] # (Auto) Eos # (Auto) Baso # (Auto) ESR Sodium Potassium Chloride Carbon Dioxide Anion Gap BUN Creatinine Estimated GFR (MDRD) BUN/Creatinine Ratio Glucose Calcium Total Bilirubin AST ALT Alkaline Phosphatase Total Protein Albumin Globulin Albumin/Globulin Ratio Lipase Urine Color Yellow Urine Clarity Clear Urine pH 6.0 Ur Specific [place] 1.025 Urine Protein 1+ Urine Glucose (UA) Negative Urine Ketones Negative Urine Blood Negative Urine Nitrite Negative Urine Bilirubin Negative Urine Urobilinogen 0.2 Ur Leukocyte Esterase Negative Urine Microscopic WBC 0-2 Ur Squamous Epith Cells 0-2 Urine Opiates Screen Negative Ur Oxycodone Screen Negative Urine Methadone Screen Negative Ur Propoxyphene Screen Negative Ur Barbiturates Screen Negative U Tricyclic Antidepress Negative Ur Phencyclidine Scrn Negative Ur Amphetamine Screen Negative U Methamphetamines Scrn Negative U Benzodiazepines Scrn Negative Urine Cocaine Screen Negative U Cannabinoids Screen Negative Orders Category Date Time Status CBC W/ AUTO DIFF Stat LAB 08/15/17 11:15 Completed CMP [COMPREHENSIVE METABOLIC PANEL] Stat LAB 08/15/17 11:15 Completed ESR Stat LAB 08/15/17 11:15 Completed LIPASE Stat LAB 08/15/17 11:15 Completed UA [URINALYSIS C & S IF INDICATED] Stat LAB 08/15/17 12:26 Completed URINE DRUG SCREEN (RAPID FOR ED) [DRUG SCREEN, URINE, LAB 08/15/17 12:26 Completed RAPID] Stat Acetaminophen [Tylenol] MEDS 08/15/17 11:00 Discontinued 650 mg PO ONCE STA Dicyclomine HCl [Bentyl] MEDS 08/15/17 11:01 Discontinued 20 mg PO ONCE STA CT ABDOMEN/PELVIS WO CONTRAST Stat RADS 08/15/17 10:58 Completed Medications Discontinued Medications Generic Name Dose Route Start Last Admin Trade Name Freq PRN Reason Stop Dose Admin Acetaminophen 650 mg 08/15/17 11:00 08/15/17 11:17 Tylenol PO 08/15/17 11:01 650 mg ONCE STA Administration Dicyclomine HCl 20 mg 08/15/17 11:01 08/15/17 11:17 Bentyl PO 08/15/17 11:02 20 mg ONCE STA Administration Vital Signs: Temp Pulse Resp BP Pulse Ox 08/15/17 09:55 98.4 F 98 H 16 116/84 98 Departure - Departure Time of Disposition: 13:20 Disposition: HOME SELF-CARE Discharge Problem: Chronic abdominal pain, Crohns disease Instructions: Crohn Disease (ED) Condition: Fair Pt referred to PMD for follow-up: Yes IPMP verified?: No Additional Instructions: Discussed alternatives of pain control for his condition Needs to get back in to GI specialist Alternatives-Dr Cory Harden in [facility]; Dr Michael Ma PCP selections as provided Take meds as directed. Allergies/Adverse Reactions: Allergies No Known Allergies Allergy (Verified 08/08/17 23:02) Home Medications: Ambulatory Orders Multivitamin [Multi-Vitamin Daily] 1 each PO DAILY 05/06/17 Cyanocobalamin (Vitamin B-12) [Vitamin B12] 2,500 mcg PO DAILY 06/20/17 Dicyclomine HCl [Bentyl] 10 mg PO TID #30 capsule 08/15/17
[2017-08-15] MEDS ORDERED: TYLENOL PO STA (11:00)
[2017-08-15] MEDS ORDERED: BENTYL PO STA (11:01)
--- NOTE | 2017-08-15 11:30 | CT ---
EXAM: CT abdomen and pelvis without contrast. HISTORY: Chronic abdominal pain. TECHNIQUE: Multi-slice transaxial helical CT. Coronal and sagittal reformatons were performed. COMPARISON: 07/17/2017. FINDINGS: The heart is normal in size. The lung bases are clear. Evaluation of the solid organs is limited without IV contrast. The spleen is normal in size. Have t iny nonobstructing left renal calculi are again seen. Multiple punctate tiny hyperdensities are pres ent within the cortex of the bilateral kidneys, not significantly changed. Tiny exophytic lesions in the bilateral kidneys are also not significantly changed. No intrahepatic biliary ductal dilation i s seen. No evidence of hydronephrosis is seen. The pancreas and the bilateral adrenal glands appear grossly unremarkable. The bowel is not dilated. Stranding densities about the urinary bladder are again seen, not significa ntly changed. The prostate is normal in size. Operative changes of right hemicolectomy are again se en. Numerous tiny mesenteric lymph nodes are again seen throughout the abdomen, not significantly ch anged. Submucosal fat deposition in the colon is again seen, not significantly changed. No evidence of bowel obstruction is seen. No evidence of pelvic free fluid is seen. Small limbus vertebrae at L 4 appears unchanged. IMPRESSION: 1. No acute abdominal findings. No evidence of hydronephrosis or bowel obstruction. 2. Mesenteric adenopathy, unchanged. 3. Right hemicolectomy. 4. Unchanged stranding densities about the urinary bladder. Again cystitis the is difficult to exclu de. 5. Nonobstructing left renal calculi. No hydronephrosis. 6. Unchanged bilateral renal tiny cortical lesions. Probably hyperdense cysts.
== END 2017-08-15 13:40 | disposition home or self-care (01) ==
LOC: ED 09:54
DX: R10.9 Unspecified abdominal pain (principal); G89.29 Other chronic pain; K50.90 Crohn's disease, unspecified, without complications; M25.572 Pain in left ankle and joints of left foot; M25.571 Pain in right ankle and joints of right foot
CPT/HCPCS: 36415; 80053; 80306; 81001; 83690; 85025; 85651; 99282; 99283

== ENCOUNTER 2017-08-15 22:51 | Emergency (ER) ==
[2017-08-15 23:00] VITALS: BP 134/92; TEMP 97; BMI 24.4
--- NOTE | 2017-08-15 23:06 | ED.PDOC ---
General ED Provider: Dr. JULEE GONZALEZ-ER Chief Complaint: Abdominal Pain Stated Complaint: im out of my ultram for my pain from chrons dz--i was here earlier today Time Seen by Physician: 23:03 Mode of Arrival: Walk-In Information Source: Patient Exam Limitations: No limitations Nursing and Triage Documentation Reviewed and Agree: Yes Reviewed sepsis parameters & appropriate labs ordered?: Yes System Inflammatory Response Syndrome: Not Applicable Sepsis Protocol: For patient's 13 years and over: Temp is 96.8 and below OR 101 and greater Pulse >90 BPM Resp >20/minute Acutely Altered Mental Status Are patient's symptoms suggestive of a new infection, such as: -Pneumonia -Skin, Soft Tissue -Endocarditis -UTI -Bone, Joint Infection -Implantable Device -Acute Abdominal Infection -Wound Infection -Meningitis -Blood Stream Catheter Infection -Unknown GI Complaint Exam - Abdominal Pain Complaint/Exam Onset: Gradual Duration: several mos Symptoms Are: Still present Timing: Intermittent Initial Severity: Mild Current Severity: Moderate Location of Pain: Diffuse Character: Reports: Dull, Aching Aggravating: Reports: None Alleviating: Reports: Spontaneous resolution Associated Signs and Symptoms: Denies: Diaphoresis, Fever, Cough, Chest pain, Dizziness, Back pain, Constipation, Blood in stool, Dysuria, Urinary frequency, Decreased urine output, Decreased appetite, Discharge, Nausea, Vomiting, Diarrhea, Decreased activity Differential Diagnoses: Other Review of Systems - Review Of Systems Constitutional: Reports: No symptoms Eyes: Reports: No symptoms Ears, Nose, Mouth, Throat: Reports: No symptoms Respiratory: Reports: No symptoms Cardiac: Reports: No symptoms GI: Reports: Abdominal pain : Reports: No symptoms Musculoskeletal: Reports: No symptoms Skin: Reports: No symptoms Neurological: Reports: No symptoms Endocrine: Reports: No symptoms Hematologic/Lymphatic: Reports: No symptoms All Other Systems: Reviewed and Negative Past Medical History - Past Medical History Previously Healthy: Yes Endocrine: Reports: Hypothyroid, Dyslipidemia Cardiovascular: Reports: None Respiratory: Reports: None Hematological: Reports: None Gastrointestinal: Reports: GERD, Crohn's, Pancreatitis Genitourinary: Reports: Kidney stones Neuro/Psych: Reports: Depression Musculoskeletal: Reports: None Cancer: Reports: None - Surgical History General Surgical History: Reports: Other (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, INTESTINAL RESECTION) - Family History Family History: Reports: Unknown - Social History Smoking Status: Never smoker Hx Substance Use: No (frequent visits for pain med) Alcohol Screening: None - Immunizations Tetanus Shot up to Date: Yes Influenza Vaccine within 12 Months: Yes Pneumococcal Vaccine up to Date: Yes Physical Exam - Physical Exam Appearance: Well-appearing, No pain distress, Well-nourished Pain Distress: Mild Eyes: DISHA, EOMI, Conjunctiva clear ENT: Ears normal, Nose normal, Oropharynx normal Neck: Supple Respiratory: Airway patent, Breath sounds clear, Breath sounds equal, Respirations nonlabored Cardiovascular: RRR GI/: Soft, Nontender, No masses, Bowel sounds normal, No Organomegaly Musculoskeletal: Normal strength, ROM intact, No edema, No calf tenderness Skin: Warm, Dry, Normal color Neurological: Sensation intact, Motor intact, Reflexes intact, Cranial nerves intact, Alert, Oriented Psychiatric: Affect appropriate, Mood appropriate Critical Care Note - Critical Care Note Total Time (mins): 0 Course - Course Orders, Labs, Meds: Ephraim has chronic abd pain and was seen today and given full w/u again--he denies any worrisome symptoms such has fever, vomiting or blood in the stool...he has had multiple visits for this pain and his pain has not changed in character or intensity Vital Signs: Temp Pulse Resp BP Pulse Ox 08/15/17 22:53 97 F L 109 H 24 134/92 H 98 Departure - Departure Time of Disposition: 23:06 Disposition: HOME SELF-CARE Discharge Problem: Chronic abdominal pain Instructions: Chronic Abdominal Pain (ED) Condition: Good Pt referred to PMD for follow-up: Yes IPMP verified?: No Additional Instructions: ultram 50mg q 8hrs prn pain #10--f/u wtih pcp Allergies/Adverse Reactions: Allergies No Known Allergies Allergy (Verified 08/15/17 23:01) Home Medications: Ambulatory Orders Multivitamin [Multi-Vitamin Daily] 1 each PO DAILY 05/06/17 Dicyclomine HCl [Bentyl] 10 mg PO TID #30 capsule 08/15/17 Disposition Discussed With: Patient
== END 2017-08-15 23:11 | disposition home or self-care (01) ==
LOC: ED 22:51
DX: R10.9 Unspecified abdominal pain (principal); G89.29 Other chronic pain
CPT/HCPCS: 99282

== ENCOUNTER 2017-08-29 19:24 | Emergency (ER) ==
[2017-08-29 19:29] VITALS: BP 133/87; TEMP 98.6; BMI 25.0
--- NOTE | 2017-08-29 19:30 | ED.PDOC ---
General ED Provider: Dr. JULEE GONZALEZ-ER Chief Complaint: Abdominal Pain Stated Complaint: im hurting like i usually do--i am out of ultram Time Seen by Physician: 19:28 Mode of Arrival: Walk-In Information Source: Patient Exam Limitations: No limitations Nursing and Triage Documentation Reviewed and Agree: Yes Reviewed sepsis parameters & appropriate labs ordered?: Yes System Inflammatory Response Syndrome: Not Applicable Sepsis Protocol: For patient's 13 years and over: Temp is 96.8 and below OR 101 and greater Pulse >90 BPM Resp >20/minute Acutely Altered Mental Status Are patient's symptoms suggestive of a new infection, such as: -Pneumonia -Skin, Soft Tissue -Endocarditis -UTI -Bone, Joint Infection -Implantable Device -Acute Abdominal Infection -Wound Infection -Meningitis -Blood Stream Catheter Infection -Unknown GI Complaint Exam - Abdominal Pain Complaint/Exam Onset: Gradual Duration: several weeks Symptoms Are: Still present Timing: Intermittent Initial Severity: Mild Current Severity: Mild Location of Pain: Diffuse Radiates To: Reports: Back Character: Reports: Dull, Aching, Cramping Aggravating: Reports: None Alleviating: Reports: Spontaneous resolution Associated Signs and Symptoms: Denies: Diaphoresis, Fever, Cough, Chest pain, Dizziness, Back pain, Constipation, Blood in stool, Dysuria, Urinary frequency, Decreased urine output, Decreased appetite, Discharge, Nausea, Vomiting, Diarrhea, Decreased activity Related History: Reports: Similar episode (has chronic abd pain) Related Surgical History: Reports: Cholecystectomy Abdominal Findings: Present: None Differential Diagnoses: Other Review of Systems - Review Of Systems Constitutional: Reports: No symptoms Eyes: Reports: No symptoms Ears, Nose, Mouth, Throat: Reports: No symptoms Respiratory: Reports: No symptoms Cardiac: Reports: No symptoms GI: Reports: Abdominal pain : Reports: No symptoms Musculoskeletal: Reports: No symptoms Skin: Reports: No symptoms Neurological: Reports: No symptoms Endocrine: Reports: No symptoms Hematologic/Lymphatic: Reports: No symptoms All Other Systems: Reviewed and Negative Past Medical History - Past Medical History Previously Healthy: Yes Endocrine: Reports: Hypothyroid, Dyslipidemia Cardiovascular: Reports: None Respiratory: Reports: None Hematological: Reports: None Gastrointestinal: Reports: GERD, Crohn's, Pancreatitis Genitourinary: Reports: Kidney stones Neuro/Psych: Reports: Depression Musculoskeletal: Reports: None Cancer: Reports: None - Surgical History General Surgical History: Reports: Other (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, INTESTINAL RESECTION) - Family History Family History: Reports: Unknown - Social History Smoking Status: Never smoker Hx Substance Use: No (frequent visits for pain med) Alcohol Screening: None - Immunizations Influenza Vaccine within 12 Months: Yes Pneumococcal Vaccine up to Date: Yes Physical Exam - Physical Exam Appearance: Well-appearing, No pain distress, Well-nourished Pain Distress: Mild Eyes: DISHA, EOMI, Conjunctiva clear ENT: Ears normal, Nose normal, Oropharynx normal Neck: Supple Respiratory: Airway patent Cardiovascular: RRR GI/: Soft Musculoskeletal: Normal strength Skin: Warm, Dry, Normal color Neurological: Sensation intact, Motor intact, Reflexes intact, Cranial nerves intact, Alert, Oriented Psychiatric: Affect appropriate, Mood appropriate, Anxious Critical Care Note - Critical Care Note Total Time (mins): 0 Course - Course Orders, Labs, Meds: MR Gates pain is not different than his usual prsentation and he denies any fever or chills or blood in the stool--he did have some urinary symptoms earlier that resolved) Vital Signs: Temp Pulse Resp BP Pulse Ox 08/29/17 19:25 98.6 F 114 H 18 133/87 98 Departure - Departure Time of Disposition: 19:30 Disposition: HOME SELF-CARE Discharge Problem: Chronic abdominal pain Instructions: Chronic Abdominal Pain (ED) Condition: Good Pt referred to PMD for follow-up: Yes IPMP verified?: No Additional Instructions: ultram 50mg q 8hrs prn pain #15--f/u with pcp Allergies/Adverse Reactions: Allergies No Known Allergies Allergy (Verified 08/15/17 23:01) Home Medications: Ambulatory Orders Multivitamin [Multi-Vitamin Daily] 1 each PO DAILY 05/06/17 Ranitidine HCl [Zantac] 600 mg PO BID 08/29/17 Disposition Discussed With: Patient
== END 2017-08-29 19:36 | disposition home or self-care (01) ==
LOC: ED 19:24
DX: R10.9 Unspecified abdominal pain (principal); G89.29 Other chronic pain; Z87.19 Personal history of other diseases of the digestive system
CPT/HCPCS: 99282

== ENCOUNTER 2017-09-12 21:09 | Emergency (ER) ==
[2017-09-12 21:20] VITALS: BP 140/69; TEMP 99.1; BMI 24.5
--- NOTE | 2017-09-12 21:20 | ED.PDOC ---
General ED Provider: Dr. JULEE GONZALEZ-ER Chief Complaint: Abdominal Pain Stated Complaint: im out of my ultram Time Seen by Physician: 21:19 Mode of Arrival: Walk-In Information Source: Patient Exam Limitations: No limitations Nursing and Triage Documentation Reviewed and Agree: Yes Does patient meet sepsis criteria?: No System Inflammatory Response Syndrome: Not Applicable Sepsis Protocol: For patient's 13 years and over: Temp is 96.8 and below OR 101 and greater Pulse >90 BPM Resp >20/minute Acutely Altered Mental Status Are patient's symptoms suggestive of a new infection, such as: -Pneumonia -Skin, Soft Tissue -Endocarditis -UTI -Bone, Joint Infection -Implantable Device -Acute Abdominal Infection -Wound Infection -Meningitis -Blood Stream Catheter Infection -Unknown GI Complaint Exam - Abdominal Pain Complaint/Exam Onset: Gradual Duration: weeks Symptoms Are: Still present Timing: Intermittent Initial Severity: Mild Current Severity: Moderate Location of Pain: Diffuse Character: Reports: Cramping, Colicky Aggravating: Reports: None Alleviating: Reports: Spontaneous resolution Associated Signs and Symptoms: Denies: Diaphoresis, Fever, Cough, Chest pain, Dizziness, Back pain, Constipation, Blood in stool, Dysuria, Urinary frequency, Decreased urine output, Decreased appetite, Discharge, Nausea, Vomiting, Diarrhea, Decreased activity Related History: Reports: Similar episode ("this is like my usual pain") Surgical Obstruction Risk Factors: Reports: Prior abdominal surgery Related Surgical History: Reports: Cholecystectomy Abdominal Findings: Present: None Differential Diagnoses: Other Review of Systems - Review Of Systems Constitutional: Reports: No symptoms Eyes: Reports: No symptoms Ears, Nose, Mouth, Throat: Reports: No symptoms Respiratory: Reports: No symptoms Cardiac: Reports: No symptoms GI: Reports: Abdominal pain : Reports: No symptoms Musculoskeletal: Reports: No symptoms Skin: Reports: No symptoms Neurological: Reports: No symptoms Endocrine: Reports: No symptoms Hematologic/Lymphatic: Reports: No symptoms All Other Systems: Reviewed and Negative Past Medical History - Past Medical History Previously Healthy: Yes Endocrine: Reports: Hypothyroid, Dyslipidemia Cardiovascular: Reports: None Respiratory: Reports: None Hematological: Reports: None Gastrointestinal: Reports: GERD, Crohn's, Pancreatitis Genitourinary: Reports: Kidney stones Neuro/Psych: Reports: Depression Musculoskeletal: Reports: None Cancer: Reports: None - Surgical History General Surgical History: Reports: Other (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, INTESTINAL RESECTION) - Family History Family History: Reports: Unknown - Social History Smoking Status: Never smoker Hx Substance Use: No (frequent visits for pain med) Alcohol Screening: None - Immunizations Influenza Vaccine within 12 Months: Yes Pneumococcal Vaccine up to Date: Yes Physical Exam - Physical Exam Appearance: Well-appearing, No pain distress, Well-nourished Eyes: DISHA, EOMI, Conjunctiva clear ENT: Ears normal, Nose normal, Oropharynx normal Neck: Supple Respiratory: Airway patent Cardiovascular: RRR GI/: Soft Musculoskeletal: Normal strength, ROM intact, No edema, No calf tenderness Skin: Warm, Dry, Normal color Neurological: Sensation intact, Motor intact, Reflexes intact, Cranial nerves intact, Alert, Oriented Psychiatric: Affect appropriate, Mood appropriate Critical Care Note - Critical Care Note Total Time (mins): 0 Course - Course Orders, Labs, Meds: he has no alarm signs with his chronic abds pain--denies fever, chiill, vomiting or blood in the stool Vital Signs: Temp Pulse Resp BP Pulse Ox 09/12/17 21:16 99.1 F 64 20 140/69 98 Departure - Departure Time of Disposition: 21:22 Disposition: HOME SELF-CARE Discharge Problem: Chronic abdominal pain Instructions: Chronic Abdominal Pain (ED) Condition: Good Pt referred to PMD for follow-up: Yes IPMP verified?: No Additional Instructions: f/u with pcp Allergies/Adverse Reactions: Allergies No Known Allergies Allergy (Verified 08/15/17 23:01) Home Medications: Ambulatory Orders Multivitamin [Multi-Vitamin Daily] 1 each PO DAILY 05/06/17 Ranitidine HCl [Zantac] 600 mg PO BID 08/29/17 Disposition Discussed With: Patient
== END 2017-09-12 21:27 | disposition home or self-care (01) ==
LOC: ED 21:09
DX: R10.84 Generalized abdominal pain (principal); G89.29 Other chronic pain
CPT/HCPCS: 99282

== ENCOUNTER 2017-09-19 19:48 | Emergency (ER) ==
[2017-09-19 19:53] VITALS: BP 131/81; TEMP 98.4; BMI 24.1
--- NOTE | 2017-09-19 19:53 | ED.PDOC ---
General ED Provider: Dr. JULEE GONZALEZ-ER Chief Complaint: Abdominal Pain Stated Complaint: im hurting and i have a referral to pain management Time Seen by Physician: 19:52 Mode of Arrival: Walk-In Information Source: Patient Nursing and Triage Documentation Reviewed and Agree: Yes Does patient meet sepsis criteria?: No System Inflammatory Response Syndrome: Not Applicable Sepsis Protocol: For patient's 13 years and over: Temp is 96.8 and below OR 101 and greater Pulse >90 BPM Resp >20/minute Acutely Altered Mental Status Are patient's symptoms suggestive of a new infection, such as: -Pneumonia -Skin, Soft Tissue -Endocarditis -UTI -Bone, Joint Infection -Implantable Device -Acute Abdominal Infection -Wound Infection -Meningitis -Blood Stream Catheter Infection -Unknown GI Complaint Exam - Abdominal Pain Complaint/Exam Onset: Gradual Duration: several mos Symptoms Are: Still present Timing: Constant Initial Severity: Mild Current Severity: Moderate Location of Pain: Diffuse Character: Reports: Dull, Aching Alleviating: Reports: None Associated Signs and Symptoms: Denies: Diaphoresis, Fever, Cough, Chest pain, Dizziness, Back pain, Constipation, Blood in stool, Dysuria, Urinary frequency, Decreased urine output, Decreased appetite, Discharge, Nausea, Vomiting, Diarrhea, Decreased activity Surgical Obstruction Risk Factors: Reports: None Related Surgical History: Reports: None Abdominal Findings: Present: None Differential Diagnoses: Other Review of Systems - Review Of Systems Constitutional: Reports: No symptoms Eyes: Reports: No symptoms Ears, Nose, Mouth, Throat: Reports: No symptoms Respiratory: Reports: No symptoms Cardiac: Reports: No symptoms GI: Reports: Abdominal pain : Reports: No symptoms Musculoskeletal: Reports: No symptoms Skin: Reports: No symptoms Neurological: Reports: No symptoms Endocrine: Reports: No symptoms Hematologic/Lymphatic: Reports: No symptoms All Other Systems: Reviewed and Negative Past Medical History - Past Medical History Previously Healthy: Yes Endocrine: Reports: Hypothyroid, Dyslipidemia Cardiovascular: Reports: None Respiratory: Reports: None Hematological: Reports: None Gastrointestinal: Reports: GERD, Crohn's, Pancreatitis Genitourinary: Reports: Kidney stones Neuro/Psych: Reports: Depression Musculoskeletal: Reports: None Cancer: Reports: None - Surgical History General Surgical History: Reports: Other (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, INTESTINAL RESECTION) - Family History Family History: Reports: Unknown - Social History Smoking Status: Never smoker Hx Substance Use: No (frequent visits for pain med) Alcohol Screening: None - Immunizations Influenza Vaccine within 12 Months: Yes Pneumococcal Vaccine up to Date: Yes Physical Exam - Physical Exam Appearance: Well-appearing, No pain distress, Well-nourished Pain Distress: Mild Eyes: DISHA, EOMI, Conjunctiva clear ENT: Ears normal, Nose normal, Oropharynx normal Neck: Supple Respiratory: Airway patent, Breath sounds clear, Breath sounds equal, Respirations nonlabored Cardiovascular: RRR, Pulses normal, No rub, No murmur GI/: Soft, Nontender, No masses, Bowel sounds normal, No Organomegaly Musculoskeletal: Normal strength, ROM intact, No edema, No calf tenderness Skin: Warm, Dry, Normal color Neurological: Sensation intact Psychiatric: Affect appropriate, Mood appropriate Critical Care Note - Critical Care Note Total Time (mins): 0 Departure - Departure Time of Disposition: 19:54 Disposition: HOME SELF-CARE Discharge Problem: Chronic abdominal pain Instructions: Chronic Abdominal Pain (ED) Condition: Good Pt referred to PMD for follow-up: No IPMP verified?: No Additional Instructions: ultram 50mg q 6 hrs prn pain #10---keep f/u with pain management-- Allergies/Adverse Reactions: Allergies No Known Allergies Allergy (Verified 09/19/17 19:51) Home Medications: Ambulatory Orders Multivitamin [Multi-Vitamin Daily] 1 each PO DAILY 05/06/17 Potassium Gluconate [Potassium] 600 mg PO DAILY 09/12/17 Disposition Discussed With: Patient
== END 2017-09-19 19:57 | disposition home or self-care (01) ==
LOC: ED 19:48
DX: R10.9 Unspecified abdominal pain (principal); G89.29 Other chronic pain
CPT/HCPCS: 99283

== ENCOUNTER 2017-10-03 19:40 | Inpatient (IN) ==
[2017-10-03 19:40] VITALS: BMI 24.1
--- NOTE | 2017-10-03 19:51 | ED.PDOC ---
General ED Provider: Dr. URMILA TRAMMELL Chief Complaint: Abdominal Pain Stated Complaint: Patient is a 32 year old male who has a history of chronic abdominal pain who states that that pain is about the same but that he feels lethargic and has had poor appetite with some nausea vomiting and diarrhea. Also states that he has burning on urination. Time Seen by Physician: 19:49 Mode of Arrival: Walk-In Information Source: Patient Nursing and Triage Documentation Reviewed and Agree: Yes Does patient meet sepsis criteria?: No System Inflammatory Response Syndrome: Pulse >90 BPM, Not Applicable Sepsis Protocol: For patient's 13 years and over: Temp is 96.8 and below OR 101 and greater Pulse >90 BPM Resp >20/minute Acutely Altered Mental Status Are patient's symptoms suggestive of a new infection, such as: -Pneumonia -Skin, Soft Tissue -Endocarditis -UTI -Bone, Joint Infection -Implantable Device -Acute Abdominal Infection -Wound Infection -Meningitis -Blood Stream Catheter Infection -Unknown GI Complaint Exam - Vomiting/Diarrhea Complaint/Exam Symptoms Are: Still present Aggravating: Reports: Food Associated Signs and Symptoms: Reports: Abdominal pain, Cramping. Denies: Dizziness, Light-headedness, Melena, Hematemesis, Fever Last Oral Intake: this morning Non-GI Risk Factors: Reports: None Surgical Obstruction Risk Factors: Reports: None Abdominal Findings: Present: Other (mild diffuse tenderness like usual chronic pain ). Absent: Rebound tenderness Kussmaul Respirations Present: No Differential Diagnoses: Dehydration, Gastritis, PUD Review of Systems - Review Of Systems Constitutional: Reports: No symptoms Eyes: Reports: No symptoms Ears, Nose, Mouth, Throat: Reports: No symptoms Respiratory: Reports: No symptoms Cardiac: Reports: No symptoms GI: Reports: Abdominal pain (chronic ), Nausea, Poor appetite, Vomiting : Reports: No symptoms Musculoskeletal: Reports: No symptoms Skin: Reports: No symptoms Neurological: Reports: No symptoms Endocrine: Reports: No symptoms Hematologic/Lymphatic: Reports: No symptoms All Other Systems: Reviewed and Negative Past Medical History - Past Medical History Previously Healthy: Yes Endocrine: Reports: Hypothyroid, Dyslipidemia Cardiovascular: Reports: None Respiratory: Reports: None Hematological: Reports: None Gastrointestinal: Reports: GERD, Crohn's, Pancreatitis Genitourinary: Reports: Kidney stones Neuro/Psych: Reports: Depression Musculoskeletal: Reports: None Cancer: Reports: None - Surgical History General Surgical History: Reports: Other (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, INTESTINAL RESECTION) - Family History Family History: Reports: Unknown - Social History Smoking Status: Never smoker Hx Substance Use: No Alcohol Screening: None - Immunizations Tetanus Shot up to Date: Yes Influenza Vaccine within 12 Months: Yes Pneumococcal Vaccine up to Date: Yes Physical Exam - Physical Exam Appearance: Ill-appearing Ill-appearing: Moderate Pain Distress: Moderate Eyes: DISHA, EOMI, Conjunctiva clear Neck: Supple Respiratory: Airway patent, Breath sounds clear, Breath sounds equal, Respirations nonlabored Cardiovascular: Pulses normal, Tachycardia GI/: Soft, Tender (Diffusely No rebound ) Musculoskeletal: Normal strength, ROM intact, No edema, No calf tenderness Skin: Warm, Dry, Normal color Neurological: Sensation intact, Motor intact, Reflexes intact, Alert, Oriented Psychiatric: Anxious Interpretation - EKG Interpretation Time of EKG #1: 21:26 Rate: Normal Rhythm: Sinus Ectopy: None Interpretation: Incomplete RBBB, Critical Care Note - Critical Care Note Total Time (mins): 35 Course - Course Hematology/Chemistry: 10/03/17 20:20 10/03/17 20:20 Orders, Labs, Meds: Lab Review 10/03/17 10/03/17 10/03/17 20:00 20:20 20:20 WBC 12.74 H RBC 4.72 Hgb 13.7 L Hct 37.5 L MCV 79.4 L MCH 29.0 MCHC 36.5 H RDW Coeff of Svitlana 12.9 Plt Count 332 Immature Gran % (Auto) 0.8 Neut % (Auto) 60.3 Lymph % (Auto) 27.7 [place] % (Auto) 9.9 Eos % (Auto) 1.0 Baso % (Auto) 0.3 Immature Gran # (Auto) 0.1 Neut # (Auto) 7.7 H Lymph # (Auto) 3.5 H [place] # (Auto) 1.3 Eos # (Auto) 0.1 Baso # (Auto) 0.0 Sodium 137 Potassium 2.1 L* Chloride 107 Carbon Dioxide 17 L Anion Gap 15.1 BUN 17 Creatinine 1.49 H Estimated GFR (MDRD) 54.00 BUN/Creatinine Ratio 11.40 Glucose 90 Calcium 9.4 Magnesium Total Bilirubin 0.4 AST 17 ALT 30 Alkaline Phosphatase 143 H Total Protein 8.4 H Albumin 4.0 Globulin 4.4 Albumin/Globulin Ratio 0.91 Amylase Lipase Urine Color Yellow Urine Clarity Clear Urine pH 6.5 Ur Specific [place] 1.015 Urine Protein 1+ Urine Glucose (UA) Negative Urine Ketones Negative Urine Blood Trace-intact Urine Nitrite Negative Urine Bilirubin Negative Urine Urobilinogen 0.2 Ur Leukocyte Esterase Negative Urine Microscopic RBC 2-5 Urine Microscopic WBC 2-5 Ur Squamous Epith Cells 0-2 Amorphous Sediment Trace Urine Bacteria Trace Hyaline Casts 0-2 10/03/17 10/03/17 20:20 20:20 WBC RBC Hgb Hct MCV MCH MCHC RDW Coeff of Svit[place]ana Plt Count Immature Gran % (Auto) Neut % (Auto) Lymph % (Auto) [place] % (Auto) Eos % (Auto) Baso % (Auto) Immature Gran # (Auto) Neut # (Auto) Lymph # (Auto) [place] # (Auto) Eos # (Auto) Baso # (Auto) Sodium Potassium Chloride Carbon Dioxide Anion Gap BUN Creatinine Estimated GFR (MDRD) BUN/Creatinine Ratio Glucose Calcium Magnesium 2.4 H Total Bilirubin AST ALT Alkaline Phosphatase Total Protein Albumin Globulin Albumin/Globulin Ratio Amylase 78 Lipase 29 Urine Color Urine Clarity Urine pH Ur Specific [place] Urine Protein Urine Glucose (UA) Urine Ketones Urine Blood Urine Nitrite Urine Bilirubin Urine Urobilinogen Ur Leukocyte Esterase Urine Microscopic RBC Urine Microscopic WBC Ur Squamous Epith Cells Amorphous Sediment Urine Bacteria Hyaline Casts Orders Category Date Time Status EKG-(ED ONLY) Stat CARDIO 10/03/17 21:14 Completed ED IV/MEDIPORT/POWERPORT .ONCE EMERGENCY 10/03/17 20:03 Active AMYLASE Stat LAB 10/03/17 20:20 Completed CBC W/ AUTO DIFF Stat LAB 10/03/17 20:20 Completed COMPREHENSIVE METABOLIC PANEL Stat LAB 10/03/17 20:20 Completed LIPASE Stat LAB 10/03/17 20:20 Completed MAGNESIUM Stat LAB 10/03/17 20:20 Completed UA [URINALYSIS C & S IF INDICATED] Stat LAB 10/03/17 20:00 Completed 0.9 % Sodium Chloride [Saline Flush] MEDS 10/03/17 20:03 Ordered 1 syr IVF PRN PRN Ketorolac Tromethamine [Toradol] MEDS 10/03/17 20:59 Discontinued 30 mg .ROUTE .STK-MED ONE Ketorolac Tromethamine [Toradol] MEDS 10/03/17 20:56 Discontinued 30 mg IVP ONCE STA Ondansetron HCl/Pf [Zofran 4 mg/2 ml] MEDS 10/03/17 20:04 Discontinued 4 mg IVP ONCE STA Potassium Chloride [K-Dur] MEDS 10/03/17 23:04 Discontinued 20 meq PO ONCE STA Potassium Chloride [Potassium Chloride Premix Run] 10 MEDS 10/03/17 20:55 Discontinued meq Premix 100 ml Water 1 bag IV ONCE Potassium Chloride [Potassium Chloride Premix Run] 100 MEDS 10/03/17 20:58 Discontinued ml IV .STK-MED Ringers Lactated Solution [Lactated Ringers] 1,000 ml MEDS 10/03/17 20:03 Discontinued IV BOLUS Medications Generic Name Dose Route Start Last Admin Trade Name Freq PRN Reason Stop Dose Admin Acetaminophen 650 mg 10/04/17 00:16 Tylenol PO Q4H PRN pain Enoxaparin Sodium 30 mg 10/04/17 09:00 Lovenox SUBCUT DAILY JOSE Potassium Chloride 10 meq/ 100 mls @ 100 mls/hr 10/04/17 00:16 Sterile Water IV 10/04/17 01:15 ONCE STA Potassium Chloride/Sodium Chloride 1,000 mls @ 125 mls/hr 10/04/17 00:30 Sodium Chloride 0.9%-Kcl 20 Meq IV .Q8H JOSE Multivitamins tab 10/04/17 09:00 Multivitamin Tablet PO DAILY JOSE Ondansetron HCl 4 mg 10/04/17 00:16 Zofran 4 Mg/2 Ml IVP Q6H PRN Nausea / Vomiting Potassium Chloride 40 meq 10/04/17 09:00 K-Dur PO 10/06/17 23:59 BID JOSE Sodium Chloride 1 syr 10/03/17 20:03 Saline Flush IVF PRN PRN To flush IV Discontinued Medications Generic Name Dose Route Start Last Admin Trade Name Freq PRN Reason Stop Dose Admin Lactated Ringer's 1,000 mls @ 1,000 mls/hr 10/03/17 20:03 10/03/17 20:28 Lactated Ringers IV 10/03/17 21:02 1,000 mls/hr BOLUS STA Administration Potassium Chloride 10 meq/ 100 mls @ 100 mls/hr 10/03/17 20:55 10/03/17 21:10 Sterile Water IV 10/03/17 21:54 100 mls/hr ONCE STA Administration Ketorolac Tromethamine 30 mg 10/03/17 20:56 10/03/17 21:12 Toradol IVP 10/03/17 20:57 30 mg ONCE STA Administration Ondansetron HCl 4 mg 10/03/17 20:04 10/03/17 20:28 Zofran 4 Mg/2 Ml IVP 10/03/17 20:05 4 mg ONCE STA Administration Potassium Chloride 20 meq 10/03/17 23:04 10/03/17 23:29 K-Dur PO 10/03/17 23:05 20 meq ONCE STA Administration Vital Signs: Temp Pulse Resp BP Pulse Ox 10/03/17 19:40 98.9 F 112 H 18 115/80 98 Departure - Departure Time of Disposition: 00:21 Disposition: PLACED OBSERVATION Discharge Problem: Hypokalemia, Dehydration Condition: Stable Pt referred to PMD for follow-up: No IPMP verified?: No Allergies/Adverse Reactions: Allergies No Known Allergies Allergy (Verified 10/03/17 19:43) Home Medications: Ambulatory Orders Multivitamin [Multi-Vitamin Daily] 1 each PO DAILY 05/06/17 Disposition Discussed With: Patient
[2017-10-03] MEDS ORDERED: LACTATED RINGERS 1,000 ML IV STA (20:03)
[2017-10-03] MEDS ORDERED: ZOFRAN 4 MG/2 ML IVP STA (20:04)
[2017-10-03] MEDS ORDERED: POTASSIUM CHLORIDE PREMIX RUN 10 MEQ in PREMIX 100 ML WATER 1 BAG IV STA (20:55)
[2017-10-03] MEDS ORDERED: TORADOL IVP STA (20:56)
[2017-10-03] MEDS ORDERED: POTASSIUM CHLORIDE PREMIX RUN 100 ML IV ONE (20:58)
[2017-10-03] MEDS ORDERED: TORADOL ONE (20:59)
[2017-10-03] MEDS ORDERED: K-DUR PO STA (23:04)
--- NOTE | 2017-10-03 23:57 | PCM ---
- Chief Complaint Chief Complaint: Hypokalemia, Chronic abdominal pain, opiate use disorder. - History of Present Illness History of Present Illness: 32 yr old WM seen by me once in clinic 05/06/17 for establish care visit, but was dishonest about opiates, had been previously terminated from our practice by Dr. Lloyd and is not currently a patient of our practice. I was called at 11:[address] Brown and discussed case with him over the phone. Patient has chronic abdominal pain, history of pancreatitis who presented to ER 19:49 with pain that is mostly uncahnged, but felt lethargic, decreased PO intake, N/V/D. Burning with urination also reported to ER team. Reviewed my note from 05/06/17 and his weight was 146 lb, about the same as today at 145 lb. Current HR 112, BP stable at 115/80 and O2 98. He has no fever, his RR is <20, he answered questions with ER w/o any change in mental state and [facility] Reported worsening of symptoms w/ meals and food, cramping, abdominal pain denied dizziness, lightheadedness, melena, hematemsis, and fever. Ate some food in the am. Labs were ordered by ER and his K+ was found to be dangerously low at 2.1. He was given 1000ml RL w/ 10 K but no PO as not tolerating PO. UA , CBC, CMP, carolann/lip checked. EKG was okay. Zofran given for nausea. Then they called me for admit. I discussed at this time with his symptoms, nothing for pain. Patient seen in room 1 of ER by me just before midnight and then again in room 115 of hospital around 12:30. Care d/w nursing. NO meds for pain. He has had 2-3 months of feeling badly. Sees Dr. Banks this wed in [facility], new GI doctor. Previously saw Dr. Perea, no visit with GI in a few years. He has been trying to find a MD but nobody will help. Emesis x 24 hours , 2x total, none in last 12-20 hours. Chronic diarrhea since 2007. Takes iron intermittently, when insurance will pay for it. Historical Hypokalemia but insurance is not paying for this either over past 2-3 months. Aching, cramping and weak. I asked if it started in [facility] and he noted it had. Suspected hypokalemia, will add CPK to the list. He has had nephrolithiasis historically and saw Dr. Valentin -06/2017 for this problem and had lithotripsy per patient. He notes no other sick contacts, no abnl food, has not consumed any salad from [employer] or undercooked foods. No recent travel. Appetite down. Feels he has lost 7 lb in last month. I discussed he was 146 05/06/17 at our last visit, he was shocked. Burning with urination, similar to those visits with DR. Valentin. Present over last 1-2 weeks. Last use of pain meds a few days ago. Tylenol minimal benefit. No tusing NSAIDS. No ETOH, no drugs. Used remicade for his crohns historically but insurance stopped payin hiram dhe stopped.Tried humara and this did not help him. Sulfasalazine helped but no use of this in 1-2 years. Cscope within last 1-2 year. HE denies any blood in stool, no dark blood, no melena. He has chronic diarrhea ~2-3x per day. Ileostomy reverasl in 2011 and Ostomy placed originally 2007. Chronic insomnia , on ambien, requested this. R/B/A to this agent d/w patient. We will give this to him. Daily klonopin as well per his report. I checked a GROCERY SUPERVISOR Ambien filled by [facility] #30 09/29/17. Tramadol 5mg #10 for 2 days on 09/19, #10 for 3 days on 09/13/17, Klonopin by [facility] #60 09/06/17, ambien #30 09/01/17, tramadol Dr. Chao 50mg #15 for 5 days on 08/30, #10 on 08/16 and klonopin #60, ambien #30 08/04. 07/26/17 #[address] Then [address] Wolff #2 tramadol, Dr. Chao 07/10/17 #15 for 3 days. 06/30/17 50mg trmadol # [address] Valentin. 12 for 3 days on 06/27/[address] Chao. Then [address] Valentin 30 for 8 days on 06/26, 30 for 8 days on 06/19, 30 for 8 days on 06/14 and 15 for 3 days on 06/09/17. I will provide daily klonpin in am. With cramping and leg pain, I will check B12 in am. He has history of iron def anemia but CBC today looks okay. "I know something is wrong with my body." I discussed with him N/V/D can lead to worsening K+. Low K+ can cause the symptoms he is describing. Feels like it did after I had my stone. Labs reviewed, see the objective section below for complete listing. Carolann/lip negative. AST/ALT negative. I will check Stool [facility] for infection. Cyclospora local outbreak. SUZI, hypoK, Mildly elevated mag, elevated WBC, low HGB. Checking back through records, nearly weekly ER visits with pain medications. I discussed that we would likely not provide pain meds here for this problem. He agreed to this plan. Repeat vitals on floor reviewed BP was 119/77 and HR was 82. He had already improved with fluids/K+. - Review of Systems Constitutional: weakness, fatigue, loss of appetite. No: fever, chills, sweats , other Eyes: No: blurred vision, double-vision, discharge, itching, pain, redness, photophobia, other Ears: No: pain, bleeding, drainage, ringing, hearing loss, other Nose: No: bleeding, congestion, discharge, other Throat: No: pain, swelling, voice change, other Mouth: No: bleeding, pain, swelling, other Respiratory: No: cough, shortness of air, wheeze, hemoptysis, pain with breathing, other Cardiovascular: No: chest pain, left arm pain, diaphoresis, PND, orthopnea, edema, palpitations, syncope, other Gastrointestinal: abdominal pain, nausea, vomiting, diarrhea. No: melena, hematemesis, hematochezia, dysphagia, constipation, other Genitourinary: dysuria, frequency, flank pain, other (misssing left testicle historically). No: hematuria, incontinence, penile discharge, testicular pain, testicular swelling Neurological: headache. No: other, dizziness, seizure, numbness, weakness, speech difficulty, problems with walking, tremor, fainting Musculoskeletal: pain, other (generalized achiness) Skin: No: rash, pruritus, lacerations, wounds, bruising, other Immunology: No: hives, itching, frequent infections, difficulty healing, other Hematology: No: easy bruising, easy bleeding, swollen glands, other Endocrine: No: weight changes (reported but unfounded), cold intolerance, heat intolerance, excessive thirst, excessive hunger, polyuria, other Psychiatric: No: depression, anxiety, sleeplessness, hopelessness, suicidal, hallucinations, other Habits: No: tobacco use, substance use, alcohol use, other - Past Medical History Past Medical History: Crohns, GERD, hypothyroid, dyslipidemia, kidney stones, depression, opiate dependence. Undescended testicle Left (removed). Chronic ambien, chronic klonopin. Anxiety/depression. - Past Surgical History Past Surgical History: Ileostomy 2007, reversal 2011. Left testicle removed as youth. Lithotripsy . - Allergies Allergies/Adverse Reactions: Allergies Allergy/AdvReac Type Severity Reaction Status Date / Time No Known Allergies Allergy Verified 10/03/17 19:43 - Medications Medications: Medications Generic Name Dose Route Start Last Admin Trade Name Freq PRN Reason Stop Dose Admin Sodium Chloride 1 syr 10/03/17 20:03 Saline Flush IVF PRN PRN To flush IV Reported Klonopin 0.5mg daily in am (CONFIRMED BY GROCERY SUPERVISOR) Reported Ambien 10mg QHS (CONFIRMED BY GROCERY SUPERVISOR) - Family History Past Family History: Mother alive UC, Father skin scancer. Brother/ SIster each x 1 healthy. No children. - Social History Past Social History: No tobacco, no ETOH, no drugs. Not , not working. NO children. Not sexually active, no known STD historically. - Vital Signs Temperature: 98.9 F Pulse Rate: 112 Respiratory Rate: 18 Blood Pressure: 115/80 O2 Sat by Pulse Oximetry: 98 - Body Composition Height: 5 ft 5 in Weight: 145 lb Body Mass Index (BMI): 24.1 - Physical Examination HEENT: Vital Signs Temp Pulse Resp BP Pulse Ox 10/04/17 01:01 98.9 F 112 H 18 115/80 98 10/04/17 00:37 97.7 F 82 16 97 10/03/17 19:40 98.9 F 112 H 18 115/80 98 Most recent set of vitals was 00:37 and 82 HR, RR 16, Po2 97% comfortable in bed. Constitutional: Appearance-No acute distress, Consistent with stated age. Answered all questions. Orientation- Oriented x 3, alert Build and Nutrition- Normal General- Patient is pleasant and cooperative with the interview and exam. Integumentary: General-No rashes, ulcers or lesions. Palpation- Normal skin moisture/turgor. Skin is warm to touch, appropriate. Capillary refill is normal bilateral Upper and lower extremity. No increased turgor on chest Head/Neck: Head- normocephalic and atraumatic. Neck- without visible/palpable lumps or pulsations. Palpation- No bony tenderness about head/neck along frontal, occipital, temporal, parietal, mastoid, jawline, zygoma, orbit or any other location. NO temporal artery tenderness. No TMJ tenderness. Neck Supple. Thyroid-No thyromegaly, no nodules Eye: Bilaterally PERRLA, EOMI. No discharge. Upper and lower eyelids are normal. Sclera/conjunctiva normal without discharge. Cornea is normal and clear. Lens is normal. Eyeball appears normal. No ciliary flushing, no conjunctival injection. ENMT: Pinna- normal without tenderness or erythema. External auditory canal Left- normal without erythema or discharge, no excessive cerumen. External auditory canal Right-normal without erythema or discharge, no excessive cerumen. TM left- Jansen/pearly, normal light reflex and anatomy TM Right- Jansen/ pearly, normal light reflex and anatomy Hearing Assessment-normal to conversational speech. Nose and sinus- No sinus tenderness along frontal/ maxillary region. External appearance normal and midline. Nares- bilateral quiet airflow, no discharge. Nasal mucosa- No bleeding noted and no ulcerations observed. Gibson, moist. Turbinates non boggy. Lips- normal color, moist without cracks/lesions Oral Cavity/Palate- hard/soft palate intact without lesions, oral mucosa is dry, lips are mildly dry, tongue is tacky. Less moist than typical. Tongue normal midline. Oropharynx- no pharyngeal erythema, Uvula midline. No post nasal drip. No exudate. Salivary glands- Non tender to palpation CHEST/LUNG: Inspection- symmetric chest wall no pectus deformity. Normal effort , no distress, no use of accessory muscles. Palpation- nontender sternum, ribline. No abnormal pulsations. Auscultation- Breath sounds normal throughout all lung prasad. Normal tracheal sounds, Normal bronchial sounds overlying sternum, Bronchovessicular sounds normal between scapulae posteriorly, Normal vessicular breath sounds heard throughout periphery. Lungs are clear today. Adventitious sounds- No wheezes, rales, rhonchi. CARDIOVASCULAR: Carotid artery- normal, no bruits or abnormal pulsations. Jugular vein- no pulsations. Palpation/Percussion- Normal PMI, no palpable thrill Auscultation- Regular rate and rhythm. No murmur noted in sitting, supine positions. Extremities- no digital clubbing, cyanosis, edema, increased warmth. ABDOMEN: Inspection- normal and no visible pulsations. Normal contour. Prominent scar lower abdomen. Auscultation- Bowel sounds normal, no abdominal bruits. Palpation/Percussion- soft, tender generalized, everywhere, no rebound, no guarding, no rovsing, no mcburney. Suprapubic, RLQ, LLQ, RUQ. no masses. Scar lower abdomen. Liver-no obvious hepatomegaly, Patient transport in room, exam completed wiht formulation chemist. No inguinal hernia, no femoral hernia, no direct inguinal hernia. Absent left testicle by examination. Penis normal, no discharge. Right testicle no tenderness, normal epididymus. Rectal not examined. Peripheral Vascular: Upper extremity Left- Normal temperature with pink nailbeds and no ulcerations. Upper extremity Right- Normal temperature with pink nailbeds and no ulcerations. Lower extremity- Normal temperature with pink nailbeds and no ulcerations. DP pulses 2+ bilaterally. Pedal hair intact. Normal capillary refill. Edema- No edema. Musculoskeletal: Generalized-No generalized swelling or edema of extremities, no digital clubbing or cyanosis, neurovascularly intact all four extremities. Upper extremity- Symmetrical posture. No visible deformity. Normal sensation along medial and lateral upper extremity proximally and distally. NO tenderness overlying shoulder, lateral/medial epicondyle. Medical Photographer 5/5 and strength 5/5 bilateral UE. Elbow palpated, no tenderness overlying olecranon. Normal supination, pronation to active/passive ROM and to resisted rotation. Bicep insertion/tricep insertion appear normal without obvious pathology. Rotator cuff evaluated and intact. Normal wrist ROM bilaterally. Normal hand movement, intrinsic muscles of hands normal. No tenderness to palpation of hands/wrists/ elbows. Strength appears normal. Lower extremity- Hip: Not tender to palpation, no pain, no swelling, edema or erythema of surrounding tissue, normal strength and tone. Normal appearing hip ROM bilaterally without pain. Knee: Knee ROM normal. No tenderness overlying trochanters, no tenderness about patella, quad tendon, patellar tendon. No tenderness at tibial tuberosity. Ankle: normal ROM not tender to palpation along medial/lateral malleolus. Foot: Normal movement of toes, no tenderness bilateral feet/toes. Normal foot type. Strength appears normal. Ankle clonus testing negative. 2 beats. Hummel testing normal bilaterally. Homans negative. Spine/Ribs- No deformities, masses or tenderness, no known fractures, normal strength, Normal ROM. Normal stability No tenderness along C/T/L spine. Normal appearing ROM about spine. Neurological: General- Moves all 4 extremities symmetrically. Symmetrical face and body posture. Cranial nerves- individually evaluated II-XII and intact. PERRLA, Normal EOMI, visual/special senses appear intact, Face is symmetrical and normal sensation/movement, normal tongue, normal strength/posture of neck musculature. Reflexes- intact with DTR 2+ patellar, Achilles, bicep, brachial, tricep. Ankle clonus normal with 2 beats. Strength- 5/5 bilateral UE and LE. Soft touch- intact bilateral UE and LE. Temperature sensation- intact bilateral UE and LE. Neuropsych: Oriented- Person, place, time. (AAOx3), Mood/affect- normal and congruent. Able to articulate well. Speech-Normal speech, normal rate, normal tone, normal use of language, volume and coherence. Thought content- normal with ability to perform basic computations and apply abstract thought/reason. Associations- intact, no SI/HI, no hallucinations, delusions, obsessions. Judgment/insight- Appropriate. Memory-Recall intact, remote and recent memory intact. Knowledge- Age appropriate fund of knowledge, concentration and attention span normal. Lymphatic: Head/Neck- normal size and non tender to palpation. Axillary- normal size and non tender to palpation. Femoral and Inguinal- normal size and non tender to palpation. - Lab/Tests/Diagnostic Imaging Lab/Tests/Diagnostic Imaging: Laboratory Results - last 24 hr 07/22/18 07/22/18 07/22/18 20:00 20:20 20:20 WBC 12.74 H RBC 4.72 Hgb 13.7 L Hct 37.5 L MCV 79.4 L MCH 29.0 MCHC 36.5 H RDW Coeff of Svitlana 12.9 Plt Count 332 Immature Gran % (Auto) 0.8 Neut % (Auto) 60.3 Lymph % (Auto) 27.7 [place] % (Auto) 9.9 Eos % (Auto) 1.0 Baso % (Auto) 0.3 Immature Gran # (Auto) 0.1 Neut # (Auto) 7.7 H Lymph # (Auto) 3.5 H [place] # (Auto) 1.3 Eos # (Auto) 0.1 Baso # (Auto) 0.0 Sodium 137 Potassium 2.1 L* Chloride 107 Carbon Dioxide 17 L Anion Gap 15.1 BUN 17 Creatinine 1.49 H Estimated GFR (MDRD) 54.00 BUN/Creatinine Ratio 11.40 Glucose 90 Calcium 9.4 Magnesium Total Bilirubin 0.4 AST 17 ALT 30 Alkaline Phosphatase 143 H Total Protein 8.4 H Albumin 4.0 Globulin 4.4 Albumin/Globulin Ratio 0.91 Amylase Lipase Urine Color Yellow Urine Clarity Clear Urine pH 6.5 Ur Specific [place] 1.015 Urine Protein 1+ Urine Glucose (UA) Negative Urine Ketones Negative Urine Blood Trace-intact Urine Nitrite Negative Urine Bilirubin Negative Urine Urobilinogen 0.2 Ur Leukocyte Esterase Negative Urine Microscopic RBC 2-5 Urine Microscopic WBC 2-5 Ur Squamous Epith Cells 0-2 Amorphous Sediment Trace Urine Bacteria Trace Hyaline Casts 0-2 10/03/17 10/03/17 20:20 20:20 WBC RBC Hgb Hct MCV MCH MCHC RDW Coeff of Svitlana Plt Count Immature Gran % (Auto) Neut % (Auto) Lymph % (Auto) [place] % (Auto) Eos % (Auto) Baso % (Auto) Immature Gran # (Auto) Neut # (Auto) Lymph # (Auto) [place] # (Auto) Eos # (Auto) Baso # (Auto) Sodium Potassium Chloride Carbon Dioxide Anion Gap BUN Creatinine Estimated GFR (MDRD) BUN/Creatinine Ratio Glucose Calcium Magnesium 2.4 H Total Bilirubin AST ALT Alkaline Phosphatase Total Protein Albumin Globulin Albumin/Globulin Ratio Amylase 78 Lipase 29 Urine Color Urine Clarity Urine pH Ur Specific [place] Urine Protein Urine Glucose (UA) Urine Ketones Urine Blood Urine Nitrite Urine Bilirubin Urine Urobilinogen Ur Leukocyte Esterase Urine Microscopic RBC Urine Microscopic WBC Ur Squamous Epith Cells Amorphous Sediment Urine Bacteria Hyaline Casts EKG with RSR' in V1, ?Delta in lead 2, atypical ST in multiple leads, sinusoidal P in V1. Trade appeared normal. Artifact and motion in EKG as well. Listed LVH on EKG but leads do nto seem to support this based on voltage criteria. No imaging so far. NO altered status. - Assessment (1) Nausea vomiting and diarrhea Status: Acute Code(s): R11.2 - NAUSEA WITH VOMITING, UNSPECIFIED; R19.7 - DIARRHEA, UNSPECIFIED SNOMED Code(s): 9522240 (2) Hypokalemia Status: Acute Code(s): E87.6 - HYPOKALEMIA (3) Dysuria Status: Acute Code(s): R30.0 - DYSURIA SNOMED Code(s): 62861906 (4) SUZI (acute kidney injury) Status: Acute Code(s): N17.9 - ACUTE KIDNEY FAILURE, UNSPECIFIED SNOMED Code (s): 06031677 (5) Dehydration Status: Acute Code(s): E86.0 - DEHYDRATION SNOMED Code(s): 27576819 (6) Myalgia Status: Acute Code(s): M79.1 - MYALGIA SNOMED Code(s): 66918530 (7) Mild anemia Status: Acute Code(s): D64.9 - ANEMIA, UNSPECIFIED SNOMED Code(s): 585034782 (8) Leukocytosis Status: Acute Code(s): D72.829 - ELEVATED WHITE BLOOD CELL COUNT, UNSPECIFIED SNOMED Code(s): 749791248, 527724425 - Plan Plan: Nausea vomiting and diarrhea (Acute)/Dehydration/SUZI: Ddx: Gastroenteritis, Urinary tract infection, Gastritis, Colitis, IBS, Crohns Flare and nephrolithiasis as most likely etiologies for his abd pain, N/V/D at this point. We will check labs as listed. Discussed case with patient today and feel that most likely dx is gastroenteritis. However cyclospora has been found in local food and patient has history of crohns. Biggest risk factor is dehydration and as seen in patient signifcantly low K+. He is <2.5, this is dangerous. ER replaced some. I requested oral 40 BID. Discussed to keep IV at 10meq/hour. Mg was fine. He has some SUZI likely dehydration. Repeat CMP in am. CBC in am. Stone evaluation w/ CT. He had CT 08/15/17 and compared to . That ct no obstruction. mesenteric adenopathy uncahnged. Right hemicolectomy. ?Cystitis at that visit with densities around bladder. Left renal calculi, non obs no hydronephrosis, hyperdense cysts in bilateral kidneys. I will allow him to eat. No bloody emesis/diarrhea by history. Mild cramping, mild abdominal pain. Avoid dairy x 1 week as any GI issues can cause potential temporary lactose intolerance. Discussed to keep appt with GI this week. I do not know if he had w/u for celiac or other food intolerances as well as the Crohns. Vitals were better on floor. HR better, BP stable. Continue fluids 125 ml/hour +10meq KCL. - CBC and CMP in am - CPK now - CT w/o Contrast now to eval for stone - Continue 125ml per hour NS + 10meq/hour of K+. - Stool PCR - C. diff testing (NO RECENT ABX). - Would like to check stool for blood when he has a stool. Leukocytosis: Suspect dehydration, nausea and vomiting may have caused some hemoconcentration and demargination of cells. Monitor CBC. We will check urine to evaluate for urinary source of infection. - Repeat CBC in am - Urine culture Dysuria (Acute): Urine culture. +Freq/Hesitancy and burning, history of stone. - Urine Culture Hypokalemia (Acute): N/V/D GI losses possible. RTA considered. Consider ABG as next line as well. C02 low on CMP. Cl normal on CMP. Low K+. Replace K+. No dextrose solutions as this worsens lwo K+. 10meq/hour in IV and 40mg PO BID. Mg is fine at 2.4 for now . - Oral and IV K+ to be replaced. Mild anemia (Acute): History of low iron and low b12. Previously got B12 injections. Consider Iron panel> Suspect some hemoconcentration. I would not be surprised if this drops by ~1 hgb point by am. - Check B12. Myalgia (Acute): Check CPK. Should improve as K+ improves. Monitor. No e/o breakdown now. UA monitored. - CPK Insomnia: Can have ambien nightly - Ambien 10 mg QHS. Chronic anxiety: on Klonopin, can use this daily in am (ordered). - Klonopin 0.5mg in am. Diet: Regular diet okay. - Regular Activity: Ad Juliette DVT Prophy: KENNY/SCD. Ambulate as able. Disposition: Hopefully length of stay 1-2 day if K+ improves and renal function improves. Chronic crohns, ideally see the GI team as scheduled wednesday. Vitals to be monitored. We will admit to inpatient. Spent total of >70 minutes with patient in ER and on floor. Reviewed my last OV from 05/06/17, reviewed EKG personally.
[2017-10-04] MEDS ORDERED: POTASSIUM CHLORIDE PREMIX RUN 10 MEQ in PREMIX 100 ML WATER 1 BAG IV STA (00:16)
[2017-10-04] MEDS ORDERED: POTASSIUM CHLORIDE PREMIX RUN 100 ML IV ONE (00:49)
[2017-10-04] MEDS: SODIUM CHLORIDE 0.9%-KCL 20 MEQ 1,000 ML IV SCH ×3 (01:10→17:07)
--- NOTE | 2017-10-04 01:50 | CT ---
EXAM: CT abdomen pelvis without intravenous contrast 10/04/2017. Sagittal and coronal reformatted i mages obtained HISTORY: Abdominal pain. Crohn disease COMPARISON: 08/15/2017 FINDINGS: The liver, gallbladder, adrenal glands and kidneys show no acute abnormality. No hydronep hrosis. Small areas of high density within the right left renal cortex appear stable and may represe nt areas of complex cyst. The spleen and pancreas show no acute abnormality. There is no bowel obstruction. Previous right he micolectomy. Air-fluid levels are present throughout the colon. Mild thickening of bowel within the right upper q uadrant with adjacent edema. This can be seen on image 57. Correlate for enterocolitis/diarrhea. Mesenteric lymphadenopathy appears similar to the prior examination. Perivesicular stranding. Correlate for possible cystitis. There is no free air or free fluid. IMPRESSION: 1. Previous right hemicolectomy. 2. Air-fluid levels throughout the remaining portions of the colon. Mild thickening of bowel within the right upper quadrant. There is adjacent edema. Correlate for enterocolitis/diarrhea. 3. Stable mesenteric lymphadenopathy. 4. Perivesicular stranding. Correlate to exclude cystitis.
[2017-10-04] MEDS: AMBIEN PO PRN ×2 (02:04→20:14)
[2017-10-04] MEDS: TYLENOL PO PRN ×4 (03:17→20:15)
[2017-10-04] MEDS ORDERED: KLONOPIN PO ONE (06:00)
--- NOTE | 2017-10-04 07:31 | PCM.PROG ---
Subjective: 32 yr old WM patient in room 115 seen by me this am at 7:00. I was called by nursing at 06:30 this am noting K+ 2.3. This was improving from the 2.0 which is headed in the right direction. He will get 40mg PO with breakfast as well as the continued fluid hydration. She noted ct was completed and that it showed previous right hemicolectomy, air-fluid levels throughout colon. Mild thickening of bowl within RUQ w/ edema. Correlate for enterocolitis/diarrhea. Mesenteric LAD similar to prior examination. Perivesicular stranding correlate for cystitis. CPK was reported as within range and okay. NO reported telemetry concerns. I came in and saw patient, talked with him about his am labs. WBC has increased from 12.74 to 14.48 despite fluids. Hgb has dropped from 13.7 to 12.2 which I expected with fluid hydration and his creatinine has improved as well from 1.49 to 1.27 with a baseline of ~0.9. ONly 1 uout and 1 stool while in hospital. 100ml output over the 4 hours that he has been on floor is ~0.38 ml/kg/hour. Ideally he would be up to about 0.5-1ml/kg/hour. We will continue to monitor his I+O. Hemoccult was + supporting crohns his hypokalemia, his CT findings and abdominal pain, leukocytosis support this as well. Pain rated at 3/10 this am. Tylenol was given for his pain. NOt on anything stronger at this point due to history of opiate issues. Uout has been minimal over last 4-6 hours, but has to urinate now. I personally reviewed telemetry some artifact/motion but no concerning lesions. We reviewed his labs. Vitals have been stable. Patient feels better, less fatigued and achy than he did yesterday. 1 stool in hospital, studies collected. Adding blood cultures, urine culture negative to date. Afebrile overnight. He has been up to use restroom after I saw him this am. He is on contact isolation until C.Diff returns. Overnight nurse and I talked about his care. He did not sleep well, but we did not finish admit until 1:30 this am. Pain in abdomen is unchanged per patient. He has no new complaints other than feeling tired. No MASSEY, no vision changes, no chest pain, no URI sx. Chronic diarrhea, somewhat worse over last 48 hours up to 2 weeks. Poorly compliant with GI care. Chronic crohns with no regular f/u. Per ON nurse he had a chicken salad stiven, three packs of rosalee crackers, two peanut butter cartons, carton of 2% milk, ice cream and pudding. THis did not cause any GI issues. The story is interesting/odd with his presentation. I would suspect that if he had peritonitis or flare of crohns that he would be avoiding food and not requesting it. REVIEW OF SYMPTOMS: (Positives bolded) General: weight loss, fever, chills, night sweats, fatigue, appetite loss ( REPORTED BUT TOLERATING A LOT OF FOOD) HEENT: Denies blurry vision, eye pain, eye discharge, dry eyes, decreased vision, sore throat tinnitus, bloody nose, hearing loss, sinus pain/pressure, ear pain/pressure. Respiratory: Denies shortness of breath, cough, hemoptysis, wheezing, pleurisy, Cardiovascular: Denies chest pain, PND, palpitation, edema, orthopnea, syncope , swelling of extremities Gastro: Nausea, vomiting, diarrhea, hematemesis, abdominal pain (chronic), constipation Genito: hematuria, dysuria, glycosuria, hesitancy, frequency, incontinence Musckelo: Arthralgia, myalgia, muscle weakness, joint swelling, denied NSAID use Skin: denies rash, pruritis, sores, nail changes, skin thickening, change in wart/mole,new lesions, pruritus, nail changes Neuro: denies Migraine, numbness, ataxia, tremor, vertigo, weakness, memory loss, Irritability, dizziness Endocrine: denies excessive thirst, polyuria, cold intolerance, heat intolerance , goiter Psychiatric: denies depression, anxiety, anti-depressants, alcohol abuse, drug abuse, +insomnia, change in sleep pattern denies mood changes Heme/lymph: denies easy bruising, bleeding gums, blood clots, swollen glands, lymphedema, Allergic/immune: denies allergic rhinitis, hay fever, asthma, hives Objective: Vital Signs (72 hours) 10/03/17 10/04/17 10/04/17 19:40 00:37 01:24 Temperature 98.9 F 97.7 F 98.9 F Pulse Rate 112 H 82 112 H Respiratory 18 18 18 Rate Blood Pressure 115/80 115/80 O2 Sat by Pulse 98 97 98 Oximetry 10/04/17 10/04/17 02:00 05:42 Temperature 98.0 F 97.6 F Pulse Rate 87 86 Respiratory 16 18 Rate Blood Pressure 114/61 108/67 O2 Sat by Pulse 100 99 Oximetry Constitutional: Appearance-No acute distress, Consistent with stated age. Answered all questions. Awake in bed, lying supine. Orientation- Oriented x 3, alert Build and Nutrition- Normal General- Patient is pleasant and cooperative with the interview and exam. Integumentary: General-No rashes, ulcers or lesions. Palpation- Normal skin moisture/turgor. Skin is warm to touch, appropriate. Capillary refill is normal bilateral Upper and lower extremity. No tenting on chest Head/Neck: Head- normocephalic and atraumatic. Neck- without visible/palpable lumps or pulsations. Palpation- No bony tenderness about head/neck along frontal, occipital, temporal, parietal, mastoid, jawline, zygoma, orbit or any other location. NO temporal artery tenderness. No TMJ tenderness. Neck Supple. Thyroid-No thyromegaly, no nodules Eye: Bilaterally PERRLA, EOMI. No discharge. Upper and lower eyelids are normal. Sclera/conjunctiva normal without discharge. Cornea is normal and clear. Lens is normal. Eyeball appears normal. No ciliary flushing, no conjunctival injection. ENMT: Nose and sinus- No sinus tenderness along frontal/maxillary region. External appearance normal and midline. Nares- bilateral quiet airflow, no discharge. Nasal mucosa- No bleeding noted and no ulcerations observed. [place], moist. Turbinates non boggy. Lips- normal color, moist without cracks/lesions Oral Cavity/Palate- hard/soft palate intact without lesions, oral mucosa is moist this am. no lip cracking. Tongue normal midline. Oropharynx- no pharyngeal erythema, Uvula midline. No post nasal drip. No exudate. Salivary glands- Non tender to palpation CHEST/LUNG: Inspection- symmetric chest wall no pectus deformity. Normal effort , no distress, no use of accessory muscles. Palpation- nontender sternum, ribline. No abnormal pulsations. Auscultation- Breath sounds normal throughout all lung prasad. Normal tracheal sounds, Normal bronchial sounds overlying sternum, Bronchovessicular sounds normal between scapulae posteriorly, Normal vessicular breath sounds heard throughout periphery. Lungs are clear today. Adventitious sounds- No wheezes, rales, rhonchi. CARDIOVASCULAR: Carotid artery- normal, no bruits or abnormal pulsations. Jugular vein- no pulsations. Palpation/Percussion- Normal PMI, no palpable thrill Auscultation- Regular rate and rhythm. No murmur noted in sitting, supine positions. Extremities- no digital clubbing, cyanosis, edema, increased warmth. ABDOMEN: Inspection- normal and no visible pulsations. Normal contour. Prominent scar lower abdomen. Auscultation- Bowel sounds normal, no abdominal bruits. Palpation/Percussion- soft, tender generalized, everywhere, no rebound, no guarding, no rovsing, no mcburney. Suprapubic, RLQ, LLQ, RUQ. no masses. Unchanged. Scar lower abdomen. Liver-no obvious hepatomegaly, Patient transport in room, exam completed last night (not repeated today). Note missing testicle. Peripheral Vascular: Upper extremity Left- Normal temperature with pink nailbeds and no ulcerations. Upper extremity Right- Normal temperature with pink nailbeds and no ulcerations. Lower extremity- Normal temperature with pink nailbeds and no ulcerations. DP pulses 2+ bilaterally. Pedal hair intact. Normal capillary refill. Edema- No edema. +KENNY/SCD in place. Musculoskeletal: Generalized-No generalized swelling or edema of extremities, no digital clubbing or cyanosis, neurovascularly intact all four extremities. moving all 4. Strength 5/5 bilateral UE and he has noted subjective improved symptoms. Upper extremity- Symmetrical posture. No visible deformity. Normal sensation along medial and lateral upper extremity proximally and distally. NO tenderness overlying shoulder, lateral/medial epicondyle. Operations Officer Afloat 5/5 and strength 5/5 bilateral UE. Elbow palpated, no tenderness overlying olecranon. Normal supination, pronation to active/passive ROM and to resisted rotation. Bicep insertion/tricep insertion appear normal without obvious pathology. Rotator cuff evaluated and intact. Normal wrist ROM bilaterally. Normal hand movement, intrinsic muscles of hands normal. No tenderness to palpation of hands/wrists/ elbows. Strength appears normal. Lower extremity- Hip: Not tender to palpation, no pain, no swelling, edema or erythema of surrounding tissue, normal strength and tone. Normal appearing hip ROM bilaterally without pain. Knee: Knee ROM normal. No tenderness overlying trochanters, no tenderness about patella, quad tendon, patellar tendon. No tenderness at tibial tuberosity. Ankle: normal ROM not tender to palpation along medial/lateral malleolus. Foot: Normal movement of toes, no tenderness bilateral feet/toes. Normal foot type. Strength appears normal. Ankle clonus testing negative. 2 beats. Hummel testing normal bilaterally. Homans negative. Spine/Ribs- No deformities, masses or tenderness, no known fractures, normal strength, Normal ROM. Normal stability No tenderness along C/T/L spine. Normal appearing ROM about spine. Neurological: General- Moves all 4 extremities symmetrically. Symmetrical face and body posture. Cranial nerves- individually evaluated II-XII and intact. PERRLA, Normal EOMI, visual/special senses appear intact, Face is symmetrical and normal sensation/movement, normal tongue, normal strength/posture of neck musculature. Reflexes- intact with DTR 2+ patellar, Achilles, bicep, brachial, tricep. Ankle clonus normal with 2 beats. Strength- 5/5 bilateral UE and LE. Soft touch- intact bilateral UE and LE. Temperature sensation- intact bilateral UE and LE. Neuropsych: Oriented- Person, place, time. (AAOx3), Mood/affect- normal and congruent. Able to articulate well. Speech-Normal speech, normal rate, normal tone, normal use of language, volume and coherence. Thought content- normal with ability to perform basic computations and apply abstract thought/reason. Associations- intact, no SI/HI, no hallucinations, delusions, obsessions. Judgment/insight- Appropriate. Memory-Recall intact, remote and recent memory intact. Knowledge- Age appropriate fund of knowledge, concentration and attention span normal. H/H Trends 10/03/17 10/04/17 Range/Units 20:20 05:45 Hgb 13.7 L 12.2 L (14.0-18.0) g/dl Hct 37.5 L 33.7 L (42.0-52.0) % WBC Trends 10/03/17 10/04/17 Range/Units 20:20 05:45 WBC 12.74 H 14.48 H (4.2-10.2) K/ul CPK/Troponin I Trends 10/04/17 Range/Units 01:08 Total Creatine Kinase 304 U/L CK-MB (CK-2) 1.9 (0.0-3.6) ng/ml CK-MB (CK-2) % 0.47091 BUN/CR Trends 10/03/17 10/04/17 Range/Units 20:20 05:45 BUN 17 20 H (7-18) mg/dL Creatinine 1.49 H 1.27 H (0.60-1.10) mg/dL Na/K Trends 10/03/17 10/04/17 Range/Units 20:20 05:45 Sodium 137 137 (136-145) mmol/L Potassium 2.1 L* 2.3 L* (3.5-5.1) mmol/L Laboratory Last Values WBC 14.48 K/ul (4.2-10.2) H 10/04/17 05:45 RBC 4.14 10^6/ul (4.70-6.10) L 10/04/17 05:45 Hgb 12.2 g/dl (14.0-18.0) L 10/04/17 05:45 Hct 33.7 % (42.0-52.0) L 10/04/17 05:45 MCV 81.4 fl (80.0-94.0) 10/04/17 05:45 MCH 29.5 pg (27.0-31.0) 10/04/17 05:45 MCHC 36.2 (31.8-35.4) H 10/04/17 05:45 RDW Coeff of Svitlana 13.0 % (11.6-14.8) 10/04/17 05:45 Plt Count 271 10^3/uL (140-440) 10/04/17 05:45 Immature Gran % (Auto) 0.7 % (0.0-5.0) 10/04/17 05:45 Neut % (Auto) 70.5 10/04/17 05:45 Lymph % (Auto) 19.8 (10.0-50.0) 10/04/17 05:45 [place] % (Auto) 7.9 (0-10) 10/04/17 05:45 Eos % (Auto) 0.8 % (0.0-7.0) 10/04/17 05:45 Baso % (Auto) 0.3 % (0.0-3.0) 10/04/17 05:45 Immature Gran # (Auto) 0.1 (0.0-1.0) 10/04/17 05:45 Neut # (Auto) 10.2 K/ul (2.0-6.9) H 10/04/17 05:45 Lymph # (Auto) 2.9 K/uL (0.60-3.4) 10/04/17 05:45 [place] # (Auto) 1.2 K/uL (0.4-2.0) 10/04/17 05:45 Eos # (Auto) 0.1 K/ul (0.0-0.7) 10/04/17 05:45 Baso # (Auto) 0.0 K/uL (0-0.2) 10/04/17 05:45 Sodium 137 mmol/L (136-145) 10/04/17 05:45 Potassium 2.3 mmol/L (3.5-5.1) L* 10/04/17 05:45 Chloride 111 mmol/L (98-107) H 10/04/17 05:45 Carbon Dioxide 16 mmol/L (21-32) L 10/04/17 05:45 Anion Gap 12.3 10/04/17 05:45 BUN 20 mg/dL (7-18) H 10/04/17 05:45 Creatinine 1.27 mg/dL (0.60-1.10) H 10/04/17 05:45 Estimated GFR (MDRD) 65.00 mL/min 10/04/17 05:45 BUN/Creatinine Ratio 15.74 10/04/17 05:45 Glucose 148 mg/dL (70-100) H D 10/04/17 05:45 Calcium 8.7 mg/dL (8.2-10.2) 10/04/17 05:45 Magnesium 2.4 mg/dL (1.7-2.2) H 10/03/17 20:20 Iron 58 ug/dL (65-175) L 10/04/17 05:45 TIBC 313 ug/dL (240-450) 10/04/17 05:45 % Saturation 19 % 10/04/17 05:45 Unsat Iron Binding 255 ug/dL (69-240) H 10/04/17 05:45 Ferritin 137.63 ng/mL (21.81-274.66) 10/04/17 05:45 Total Bilirubin 0.4 mg/dL (0.00-1.20) 10/03/17 20:20 AST 17 U/L (15-37) 10/03/17 20:20 ALT 30 U/L (12-78) 10/03/17 20:20 Alkaline Phosphatase 143 U/L (50-136) H 10/03/17 20:20 Total Creatine Kinase 304 U/L 10/04/17 01:08 CK-MB (CK-2) 1.9 ng/ml (0.0-3.6) 10/04/17 01:08 CK-MB (CK-2) % 0.23815 10/04/17 01:08 Total Protein 8.4 g/dL (6.4-8.2) H 10/03/17 20:20 Albumin 4.0 g/dL (3.4-5.0) 10/03/17 20:20 Globulin 4.4 10/03/17 20:20 Albumin/Globulin Ratio 0.91 10/03/17 20:20 Amylase 78 U/L (25-115) 10/03/17 20:20 Lipase 29 U/L (8-78) 10/03/17 20:20 Vitamin B12 853 pg/mL (213-816) H 10/04/17 05:45 Urine Color Yellow (YELLOW) 10/03/17 20:00 Urine Clarity Clear (CLEAR) 10/03/17 20:00 Urine pH 6.5 (5-9) 10/03/17 20:00 Ur Specific [place] 1.015 (1.005-1.030) 10/03/17 20:00 Urine Protein 1+ (NEGATIVE) 10/03/17 20:00 Urine Glucose (UA) Negative (NEGATIVE) 10/03/17 20:00 Urine Ketones Negative (NEGATIVE) 10/03/17 20:00 Urine Blood Trace-intact (NEGATIVE) 10/03/17 20:00 Urine Nitrite Negative (NEGATIVE) 10/03/17 20:00 Urine Bilirubin Negative (NEGATIVE) 10/03/17 20:00 Urine Urobilinogen 0.2 (0.2) 10/03/17 20:00 Ur Leukocyte Esterase Negative (NEGATIVE) 10/03/17 20:00 Urine Microscopic RBC 2-5 (0-2) 10/03/17 20:00 Urine Microscopic WBC 2-5 (0-2) 10/03/17 20:00 Ur Squamous Epith Cells 0-2 (0-5) 10/03/17 20:00 Amorphous Sediment Trace (NOT PRESENT) 10/03/17 20:00 Urine Bacteria Trace (NOT PRESENT) 10/03/17 20:00 Hyaline Casts 0-2 (NOT PRESENT) 10/03/17 20:00 Stl Occult Blood (IFOB) Positive (NEGATIVE) 10/04/17 05:15 Urine Opiates Screen Negative (NEGATIVE) 10/04/17 05:00 Ur Oxycodone Screen Negative (NEGATIVE) 10/04/17 05:00 Urine Methadone Screen Negative (NEGATIVE) 10/04/17 05:00 Ur Propoxyphene Screen Negative (NEGATIVE) 10/04/17 05:00 Ur Barbiturates Screen Negative (NEGATIVE) 10/04/17 05:00 U Tricyclic Antidepress Negative (NEGATIVE) 10/04/17 05:00 Ur Phencyclidine Scrn Negative (NEGATIVE) 10/04/17 05:00 Ur Amphetamine Screen Negative (NEGATIVE) 10/04/17 05:00 U Methamphetamines Scrn Negative (NEGATIVE) 10/04/17 05:00 U Benzodiazepines Scrn Negative (NEGATIVE) 10/04/17 05:00 Urine Cocaine Screen Negative (NEGATIVE) 10/04/17 05:00 U Cannabinoids Screen Negative (NEGATIVE) 10/04/17 05:00 CT abd pelvis without contrast showed ?enterocolitis, bladder stranding. flagyl/ levquin ordered. Await C. Diff (Low likelihood). Tele monitored and no acute processes. (1) Nausea vomiting and diarrhea Status: Acute Code(s): R11.2 - NAUSEA WITH VOMITING, UNSPECIFIED; R19.7 - DIARRHEA, UNSPECIFIED SNOMED Code(s): 8156192 (2) Hypokalemia Status: Acute Code(s): E87.6 - HYPOKALEMIA (3) Dysuria Status: Acute Code(s): R30.0 - DYSURIA SNOMED Code(s): 65490870 (4) SUZI (acute kidney injury) Status: Acute Code(s): N17.9 - ACUTE KIDNEY FAILURE, UNSPECIFIED SNOMED Code (s): 75166613 (5) Dehydration Status: Acute Code(s): E86.0 - DEHYDRATION SNOMED Code(s): 74066023 (6) Abdominal pain Status: Inactive Code(s): R10.9 - UNSPECIFIED ABDOMINAL PAIN SNOMED Code(s) : 27531742 (7) Crohn's colitis Status: Inactive Code(s): K50.10 - CROHN'S DISEASE OF LARGE INTESTINE WITHOUT COMPLICATIONS SNOMED Code(s): 59112034 (8) Myalgia Status: Acute Code(s): M79.1 - MYALGIA SNOMED Code(s): 08525794 (9) Mild anemia Status: Acute Code(s): D64.9 - ANEMIA, UNSPECIFIED SNOMED Code(s): 874272792 (10) Leukocytosis Status: Acute Code(s): D72.829 - ELEVATED WHITE BLOOD CELL COUNT, UNSPECIFIED SNOMED Code(s): 283267948 Plan: SUZI/Dehydration: Improving, Creatinine is improving with fluid hydration. - Continue fluids at 100-125ml/hour. Hypokalemia: Still critical K+. He did not get much in ER. I have ordered 40meq with breakfast, we will do this with each meal. I have questioned bowel rest, but he feels hungry and has been eating over past 2 weeks unchanged abdominal pain. - Monitor CMP this afternoon. - TID K+ replacement. - Urine potassium to be checked. Crohns Disease: CT showed possible enterocolitis/diarrhea. His abd pain is not any worse than normal, 1 large stool liquid while here. We have checked Stool PCR, checking for C.diff. On contact at present. After blood cultures, I will add levaquin/flagyl as per discussion with GI. Patients are at increased risk for VTE. He is on KENNY/SCD at present, stool + for blood, anemic. B12 was fine. Concern for lovenox at this stage with risks of increased bleeding. ? Microperf. He would benefit from being able to see GI and possibly surgery with his current status. CT compared with that from 08/15/17 bladder stranding unchanged and of unknown significance, mesenteric lymphadenopathy unchanged, but the new finding of air/fluid levels and ?enterocolitis suggests infection vs flare of his crohns. Renal function is improving. NO steroids for now, will call Dr. Harden and discuss with him today. CrCl 76.24ml/min and no dose change for abx needed. - Levaquin 750 daily IV - Flagyl 500 q 8 hours IV - I call Dr. Harden in [place] and vibration technician provider Dr. Worthington did not want to accept transfer of patient at this time, chronic problem likely appropriate based on history of patient. K+ is biggest issue at present. - Dr. Worthington was very helpful and recommended methylprednisolone 40 IV daily. Anemia: Worsening. Will add iron panel to his list. - Iron/TIBC/Ferritin. Luekocytosis: Worsening. CT supports GI vs source. CT unchanged regarding source, he has no urinary complaints. So far 100ml output, has to go this am. Monitor I+O, will add broad spectrum abx. - Blood cultures. - Will add levaquin/flagyl as above. Diet: Full diet, regular for now. He had a lot of food overnight without any worsening GI issues. If any worsening abd pain, will stop this. Reached out to GI to see if they wanted transfer or to monitor K+ and see after D/C. Dr. Harden out of office, talked with DIRECTOR GENERAL Samreen this am. Transferred to [facility] to discuss with GI. If pain persists or worsens clear liquid and GI rest recommended. Normal diet for now as tolerating this well. DVT Prophy: High risk if Crohns flare/peritonitis and LMWH is ideal but he had + blood in stool. I will continue KENNY/SCD for now, reach out to GI. - COntinue KENNY/SCD - He did get 1 dose of lovenox, I have stopped this for now. Monitor CBC closely. Summary: K+ is not improving as fast as I would like, but improving in the 6 hours since I saw him last. PO K+. His vitals are stable at this time, chronic pain, which is unchanged. CT findings somewhat worse than 08/15/17 and 07/17. UDS was negative. Urine culture negative to date. Blood cultures ordered. Iron panel ordered. Continue fluid hydration. I will allow him to eat. Tylenol for pain. Urine function is improving, with good urine this am. C.diff pending, Stool PCR pending. Will add broad spectrum abx to cover patient for leukocytosis. Monitor Hgb closely. He is not on LMWH for prophy at this time due to + hemoccult. We will continue KENNY/SCD Disposition: Will reach out to [facility] and see if they have capability of seeing him. Patient would benefit from GI presence/Surgery possibly as well. We will continue to replace K+. Clinically he looks like he did when I saw him . Weight down 1 lb, chronic abdominal pain. Will check labs again this afternoon. If not improving, will try to get him to larger facility. If K+ improves today, he may be able to be d/c home with close outpatient f/u. However, I will still call today to talk with their team. 8:[address] Harden office [phone] to see if they still had appt for wednesday and to talk with team. He is out of office this week. They got one of the DIRECTOR GENERAL for me to talk with about the patient. Talked with DIRECTOR GENERAL Talia discussed above case and she recommended stool calprotectin which is a send out for my hospital and we would not get this back for a few days. Recommended I call [facility] [phone]. Dr. Worthington paged. 8:18 am. Very helpful. Recommended at this time with chronic appearance add levquin/flagyl and methylprednisolone. Add prednisone 40mg daily x 2 weeks at d/c and see GI. Patient was given lovenox x1. I stopped this order as he has Hemoccult +. I ordered KENNY/SCD. The lovenox was placed at admit. I will cancel this order. He will have 24 hour urine for potassium, abx as listed above. DIscussed case wiht nurse. If any abdominal pain, stop the diet and resume clear liquids. Steroids should help but his WBC will elevate. Total of 1 hour spent rounding this am, talking with specialists and discussing care with child care centre director and nursing. .
[2017-10-04] MEDS ORDERED: PRIMAXIN 500 MG in SODIUM CHLORIDE 100 ML IV SCH (08:00)
[2017-10-04] MEDS: MULTIVITAMIN TABLET PO SCH (08:35)
[2017-10-04] MEDS: K-DUR PO SCH ×3 (08:35→20:14)
[2017-10-04] MEDS: ZOFRAN 4 MG/2 ML IVP PRN (08:46)
[2017-10-04] MEDS ORDERED: LOVENOX SUBCUT SCH (09:00)
[2017-10-04] MEDS ORDERED: K-DUR PO SCH (09:00)
[2017-10-04] MEDS ORDERED: K-DUR PO ONE (09:00)
[2017-10-04] MEDS: LEVAQUIN 750 MG in PREMIX 150 ML D5W 1 BAG IV SCH (09:26)
[2017-10-04] MEDS: SOLU-MEDROL 40 MG IVP SCH (09:34)
[2017-10-04] MEDS: FLAGYL 500 MG/100 ML 500 MG in PREMIX 100 ML NS 1 BAG IV SCH ×3 (11:01→20:13)
[2017-10-04] MEDS: KLONOPIN PO SCH ×2 (15:04→20:14)
[2017-10-05] MEDS: SODIUM CHLORIDE 0.9%-KCL 20 MEQ 1,000 ML IV SCH (01:31)
[2017-10-05] MEDS: FLAGYL 500 MG/100 ML 500 MG in PREMIX 100 ML NS 1 BAG IV SCH ×2 (05:33→13:54)
[2017-10-05] MEDS: TYLENOL PO PRN (07:37)
[2017-10-05] MEDS: ZOFRAN 4 MG/2 ML IVP PRN (07:38)
--- NOTE | 2017-10-05 08:10 | PCM.PROG ---
Subjective: Per nurses, the patient has been asking for multiple items throughout his stay. I reviewed nursing notes from yesterday and discussed case with overnight nurse this am. Yesterday the patient did not want SCD/KENNY and told nurse he would put them on later. C/O pain everywhere, c/o achiness, lack of energy. 13 :45 yesterday K+ had improved from 2.3 to 2.5. at 20:16 he was given some pain medication tylenol for 5/10 stabbing pain all over, pain in legs, weakness. 10mg ambien given at 20:17 and 20:49 per nurse Sharon worried about everything, anxiety about his entire stay, about what was wrong with him and she aleviated his fears. Klonopin home med given BID during stay. Late last night c/o left testicle pain. 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 No pain in ER and documented absence of left testicle. 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 At 04:05 this am he asked for food, drank orange juice, ate a sandwich and crackers (quickly) and then complained of nausea. He has had zofran ordered while here. I saw him around 7 :15 this am. He is worried about everything, asks the same questions daily. He wants to know why he hurts all over, why he has diarrhea, why his intestines are inflamed, why he has no energy. "I just know my body and something is wrong." I had a very long conversation with him over a 30 minute period, nurse Iqra in room with me. I discussed inflammation of the bowel has led to irritation and this can likely explain the anemia. He has not been eating/ drinking well and this could explain the low potassium. I told him this am we had good news. K+ back to 3.5, creatinine back to baseline. Anemia mildly worse but I suspected this with net + of ~3L. His rate of urine output has been great with 1185 out in last 24 hours and a rate of 0.74ml/kg/hour. Reviewed his labs with him this am WBC has decreased from 14.48 to 13.52. Hgb has steadily dropped with fluid hydration from 13.7 to 9.8. Plt 332 to 246. Differential is not concerning with 13% mono and Neut # 8.8. Remainder of diff normal. As noted above, K+ has improved to 3.5, Chlorine is up to 120, we will stop the NS but continue BID K+Cl- at 40meq. Creatinine has improved from 1.37 to 0.96 this am. Calcium stable at 8.7. Iron studies looked okay, B12 was normal. Cdiff was negative. Misc PCR stool send out not back yet. I called lab and so far negative blood cultures. Vitals pulse 98, temp afebrile entire stay. BP 106/64, O2 100%. Tele continuous showed NSR, ST all w/ BB. He is very worried, down. No SI/HI but he is worried about everything. With Iqra in room, I discussed possible d/c when his friend gets here today as his values have normalized. We discussed home on flagyl/levaquin. We talked about his testicle pain 07/22. We will US this area this am. Epididymitis should respond to levaquin. Unlikely torsion but we will check. I discussed most important thing is to see GI and to start the process of controlling the crohns. He asked about his energy, asked about B12 again. He does not understand what we are telling him. He asked about his anxiety and why he is taking the klonpin. I discussed that this was a home med for anxiety but can sometimes worsen depression. "WHY AM I TAKING IT THEN?" "What can calm me down , I am worried about my body." We talked at length about compliance, about need to f/u. I had seen him 05/06/17 and recommended GI then. He now told me that WALT T[place], his PCP has recommended this as well. He previously told me he had no PCP that nobody wanted to help him. He asked about pain everywhere. I discussed I was concerned that this is from opiate withdrawal and he is craving opiate medications. "I haven't had any opiates in weeks." I discussed ultram, then he said except that, it has been a few days. I reviewed literature sources with him suggesting Ultram as very addictive substances, some state #2 after oxycontin. He was unaware but felt his pain was inadequately treated. "Why does my chest hurt?" I asked what he meant that he has not complained of this. He said its not right now but sometimes my chest aches. I discussed that pain unless injury is not always localized. His brain is feeling everything as pain without opiates on board. He was in hospital for low K+, for SUZI and these have improved. The other chronic stuff needs to have GI to help us further. The patient did not seem to understand the importance of regular f/u with PCP and specialists. 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 We talked again about the idea that we ARE trying to help him, we set up referrals, we have attempted to w/u problems but we cannot help him if he does not take his Rx, if he does not go to the specialist. I will not worsen his overall health with pain meds. I discussed sometimes the best, most loving answer is to say "NO." I told him I worried about him, I wanted him to feel better and to not be in pain, to not have GI issues, to not have crohns and I certainly hope that he has success with GI tomorrow. Keeping him in hospital and missing appt would be the wrong choice for this patient. We talked with the team yesterday, they were incredibly helpful (relayed this to the patient) and that I feel that the team in [place] is the right choice for him. Talked with Dr. Ander Melgar and both were incredibly helpful with his care and have already started helping before he got there. He thinks when his friend gets here this afternoon he wants to go home. REVIEW OF SYMPTOMS: (Positives bolded) General: weight loss, fever, chills, night sweats, fatigue, appetite loss (But eating incredibly well here in hospital, asking for extras/snacks), HEENT: blurry vision, eye pain, eye discharge, dry eyes, decreased vision, sore throat tinnitus, bloody nose, hearing loss, sinus pain/pressure, ear pain/ pressure. Respiratory: shortness of breath, cough, hemoptysis, wheezing, pleurisy, Cardiovascular: chest pain (fleeting and chest wall not likely cardiac, this was added after I noted we were thinking of D/C), PND, palpitation, edema, orthopnea, syncope, swelling of extremities Gastro: Nausea, vomiting (NONE IN HOSPITAL), diarrhea (CHRONIC), hematemesis, abdominal pain (CHRONIC), constipation Genito: hematuria, dysuria, glycosuria, hesitancy, frequency, incontinence + TESTICLE PAIN ON LEFT, ABSENCE OF LEFT [place]: Arthralgia, myalgia, muscle weakness, joint swelling, NSAID use Skin: rash, pruritis, sores, nail changes, skin thickening, change in wart/mole , new lesions, pruritus, nail changes Neuro: Migraine, numbness, ataxia, tremor, vertigo, weakness, memory loss, Irritability, dizziness Endocrine: excessive thirst, polyuria, cold intolerance, heat intolerance, goiter Psychiatric: depression, anxiety, anti-depressants, alcohol abuse, drug abuse, insomnia, change in sleep pattern and mood changes Heme/lymph: easy bruising, bleeding gums, blood clots, swollen glands, lymphedema, Allergic/immune: allergic rhinitis, hay fever, asthma, hives Objective: Vital Signs (72 hours) 10/03/17 10/04/17 10/04/17 19:40 00:37 02:00 Temperature 98.9 F 97.7 F 98.0 F Pulse Rate 112 H 82 87 Respiratory 18 18 16 Rate Blood Pressure 115/80 114/61 O2 Sat by Pulse 98 97 100 Oximetry 10/04/17 10/04/17 10/04/17 05:42 10:00 14:00 Temperature 97.6 F 98.2 F 98.6 F Pulse Rate 86 88 100 H Respiratory 18 16 14 Rate Blood Pressure 108/67 120/62 106/63 O2 Sat by Pulse 99 99 99 Oximetry 10/04/17 10/05/17 10/05/17 22:00 05:58 07:52 Temperature 97.7 F 97.8 F 98.9 F Pulse Rate 105 H 98 H 112 H Respiratory 16 16 18 Rate Blood Pressure 117/65 106/64 115/80 O2 Sat by Pulse 100 100 98 Oximetry Constitutional: Appearance-Lying supine in bed still w/o acute distress, numerous c/o, achiness, pain. Strength is fine, he is ambulating in halls 1-2x daily. KENNY/SCD not on at present, I discussed again that these are the method that he needs to use to prevent clot for now. Appears consistent with stated age. Answered all questions. Awake in bed, lying supine. Repeated questions from yesterday. "Why do I hurt? Why is my blood cells low?" Orientation- Oriented x 3, alert Build and Nutrition- Normal General- Patient is pleasant and cooperative with the interview and exam. Weight unchanged. Integumentary: General-No rashes, ulcers or lesions. Palpation- Normal skin moisture/turgor. Skin is warm to touch, appropriate. Capillary refill is normal bilateral Upper and lower extremity. No tenting on chest Head/Neck: Head- normocephalic and atraumatic. Neck- without visible/palpable lumps or pulsations. Palpation- No bony tenderness about head/neck along frontal, occipital, temporal, parietal, mastoid, jawline, zygoma, orbit or any other location. NO temporal artery tenderness. No TMJ tenderness. Neck Supple. Thyroid-No thyromegaly, no nodules Eye: Bilaterally PERRLA, EOMI. No discharge. Upper and lower eyelids are normal. Sclera/conjunctiva normal without discharge. Cornea is normal and clear. Lens is normal. Eyeball appears normal. No ciliary flushing, no conjunctival injection. ENMT: Nose and sinus- No sinus tenderness along frontal/maxillary region. External appearance normal and midline. Nares- bilateral quiet airflow, no discharge. Nasal mucosa- No bleeding noted and no ulcerations observed. [place], moist. Turbinates non boggy. Lips- normal color, moist without cracks/lesions Oral Cavity/Palate- hard/soft palate intact without lesions, oral mucosa is moist this am. no lip cracking. Tongue normal midline. Oropharynx- no pharyngeal erythema, Uvula midline. No post nasal drip. No exudate. Salivary glands- Non tender to palpation CHEST/LUNG: Inspection- symmetric chest wall no pectus deformity. Normal effort , no distress, no use of accessory muscles. Palpation- nontender sternum, ribline. No abnormal pulsations. Auscultation- Breath sounds normal throughout all lung prasad. Normal tracheal sounds, Normal bronchial sounds overlying sternum, Bronchovessicular sounds normal between scapulae posteriorly, Normal vessicular breath sounds heard throughout periphery. Lungs are clear today. Adventitious sounds- No wheezes, rales, rhonchi. CARDIOVASCULAR: Carotid artery- normal, no bruits or abnormal pulsations. Jugular vein- no pulsations. Palpation/Percussion- Normal PMI, no palpable thrill Auscultation- Regular rate and rhythm. No murmur noted in sitting, supine positions. Extremities- no digital clubbing, cyanosis, edema, increased warmth. ABDOMEN: Inspection- normal and no visible pulsations. Normal contour. Prominent scar lower abdomen. Auscultation- Bowel sounds normal, no abdominal bruits. Palpation/Percussion- soft, tender generalized no wincing today. Last 48 hours winced with exam. I palpated while distracting with stethoscope and he did not report any pain, did not wince,no rebound, no guarding, no rovsing, no mcburney. Still reports Suprapubic, RLQ, LLQ, RUQ. Now with LLQ and testicular pain. no masses. Essentially Unchanged, chronic. Scar lower abdomen. Liver-no obvious hepatomegaly, Patient transport in room, exam completed in ER and reported and noted left testicle missing. It appears that this was an error, I addended H+P. 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 With nurse Iqra in room, left testicle is mildly tender about the epididymus (levaquin should cover). He then asked me if his bladder was okay (levaquin should cover for bladder infection). CT scan results reviewed with patient again and ?Chronic inflammatory process. Peripheral Vascular: Upper extremity Left- Normal temperature with pink nailbeds and no ulcerations. Upper extremity Right- Normal temperature with pink nailbeds and no ulcerations. Lower extremity- Normal temperature with pink nailbeds and no ulcerations. DP pulses 2+ bilaterally. Pedal hair intact. Normal capillary refill. Edema- No edema. +KENNY/SCD in place. Musculoskeletal: Generalized-No generalized swelling or edema of extremities, no digital clubbing or cyanosis, neurovascularly intact all four extremities. moving all 4. Strength 5/5 bilateral UE and he has noted subjective improved symptoms. No calf tenderness, no edema. Still with strength 5/5 bilateral UE an dGrip 5/5 bilaterally. NO bony tenderness. Normal girdle strength, no rash. NO tenderness along spine. Reported again about bakers cyst on knee that if present is minimal, c/o great toe pain on right. No e/o bunion, no rash, no skin breakdown. "Its arthritis in my knees and hips and toes," I was told it was there. Upper extremity- Symmetrical posture. No visible deformity. Normal sensation along medial and lateral upper extremity proximally and distally. NO tenderness overlying shoulder, lateral/medial epicondyle. Quirk Sander 5/5 and strength 5/5 bilateral UE. Elbow palpated, no tenderness overlying olecranon. Normal supination, pronation to active/passive ROM and to resisted rotation. Bicep insertion/tricep insertion appear normal without obvious pathology. Rotator cuff evaluated and intact. Normal wrist ROM bilaterally. Normal hand movement, intrinsic muscles of hands normal. No tenderness to palpation of hands/wrists/ elbows. Strength appears normal. Lower extremity- Hip: Not tender to palpation, no pain, no swelling, edema or erythema of surrounding tissue, normal strength and tone. Normal appearing hip ROM bilaterally without pain. Knee: Knee ROM normal. No tenderness overlying trochanters, no tenderness about patella, quad tendon, patellar tendon. No tenderness at tibial tuberosity. Ankle: normal ROM not tender to palpation along medial/lateral malleolus. Foot: Normal movement of toes, no tenderness bilateral feet/toes. Normal foot type. Strength appears normal. Ankle clonus testing negative. 2 beats. Hummel testing normal bilaterally. Homans negative. Spine/Ribs- No deformities, masses or tenderness, no known fractures, normal strength, Normal ROM. Normal stability No tenderness along C/T/L spine. Normal appearing ROM about spine. Neurological: General- Moves all 4 extremities symmetrically. Symmetrical face and body posture. Cranial nerves- individually evaluated II-XII and intact. PERRLA, Normal EOMI, visual/special senses appear intact, Face is symmetrical and normal sensation/movement, normal tongue, normal strength/posture of neck musculature. Reflexes- intact with DTR 2+ patellar, Achilles, bicep, brachial, tricep. Ankle clonus normal with 2 beats. Strength- 5/5 bilateral UE and LE. Soft touch- intact bilateral UE and LE. Temperature sensation- intact bilateral UE and LE. Neuropsych: Oriented- Person, place, time. (AAOx3), Mood/affect- Worried, nervous, anxious. I suspect depression. NO SI/HI. He is able to articulate well but asks the same questions multiple times. Speech-Normal speech, normal rate, normal tone, normal use of language, volume and coherence. Thought content- Worried, preoccupied but not paranoid or delusional. Associations- intact, no SI/HI, no hallucinations, delusions, obsessions. Judgment/insight- Appropriate. Memory-Recall intact, remote and recent memory intact. Knowledge- Age appropriate fund of knowledge, concentration and attention span normal. Lymph: No enlarged cervical LN, No axillary LN, no inguinal nodes obvious on exam. He has tenderness along the inguinal ligament but no obvious enlarged LN. History of LN enlargement in abdomen, he said why are these enlarged. I again mentioned the inflammation in the intestines. "Why is there inflammation in my intestines?" I discussed crohns is an inflammatory bowel disease. H/H Trends 10/03/17 10/04/17 10/05/17 Range/Units 20:20 05:45 05:05 Hgb 13.7 L 12.2 L 9.8 L (14.0-18.0) g/dl Hct 37.5 L 33.7 L 27.6 L D (42.0-52.0) % WBC Trends 10/03/17 10/04/17 10/05/17 Range/Units 20:20 05:45 05:05 WBC 12.74 H 14.48 H 13.52 H (4.2-10.2) K/ul BUN/CR Trends 10/03/17 10/04/17 10/04/17 Range/Units 20:20 05:45 13:10 BUN 17 20 H 20 H (7-18) mg/dL Creatinine 1.49 H 1.27 H 1.37 H (0.60-1.10) mg/dL 10/05/17 Range/Units 05:05 BUN 16 (7-18) mg/dL Creatinine 0.96 (0.60-1.10) mg/dL Na/K Trends 10/03/17 10/04/17 10/04/17 Range/Units 20:20 05:45 13:10 Sodium 137 137 138 (136-145) mmol/L Potassium 2.1 L* 2.3 L* 2.5 L* (3.5-5.1) mmol/L 10/05/17 Range/Units 05:05 Sodium 143 (136-145) mmol/L Potassium 3.5 (3.5-5.1) mmol/L Laboratory Last Values WBC 13.52 K/ul (4.2-10.2) H 10/05/17 05:05 RBC 3.28 10^6/ul (4.70-6.10) L 10/05/17 05:05 Hgb 9.8 g/dl (14.0-18.0) L 10/05/17 05:05 Hct 27.6 % (42.0-52.0) L D 10/05/17 05:05 MCV 84.1 fl (80.0-94.0) 10/05/17 05:05 MCH 29.9 pg (27.0-31.0) 10/05/17 05:05 MCHC 35.5 (31.8-35.4) H 10/05/17 05:05 RDW Coeff of Svitlana 13.4 % (11.6-14.8) 10/05/17 05:05 Plt Count 246 10^3/uL (140-440) 10/05/17 05:05 Immature Gran % (Auto) 1.1 % (0.0-5.0) 10/05/17 05:05 Neut % (Auto) 65.1 10/05/17 05:05 Lymph % (Auto) 20.5 (10.0-50.0) 10/05/17 05:05 [place] % (Auto) 13.0 (0-10) H 10/05/17 05:05 Eos % (Auto) 0.2 % (0.0-7.0) 10/05/17 05:05 Baso % (Auto) 0.1 % (0.0-3.0) 10/05/17 05:05 Immature Gran # (Auto) 0.2 (0.0-1.0) 10/05/17 05:05 Neut # (Auto) 8.8 K/ul (2.0-6.9) H 10/05/17 05:05 Lymph # (Auto) 2.8 K/uL (0.60-3.4) 10/05/17 05:05 [place] # (Auto) 1.8 K/uL (0.4-2.0) 10/05/17 05:05 Eos # (Auto) 0.0 K/ul (0.0-0.7) 10/05/17 05:05 Baso # (Auto) 0.0 K/uL (0-0.2) 10/05/17 05:05 Sodium 143 mmol/L (136-145) 10/05/17 05:05 Potassium 3.5 mmol/L (3.5-5.1) 10/05/17 05:05 Chloride 120 mmol/L (98-107) H 10/05/17 05:05 Carbon Dioxide 17 mmol/L (21-32) L 10/05/17 05:05 Anion Gap 9.5 10/05/17 05:05 BUN 16 mg/dL (7-18) 10/05/17 05:05 Creatinine 0.96 mg/dL (0.60-1.10) 10/05/17 05:05 Estimated GFR (MDRD) 90.00 mL/min 10/05/17 05:05 BUN/Creatinine Ratio 16.66 10/05/17 05:05 Glucose 96 mg/dL (70-100) 10/05/17 05:05 Calcium 8.7 mg/dL (8.2-10.2) 10/05/17 05:05 Magnesium 2.4 mg/dL (1.7-2.2) H 10/03/17 20:20 Iron 58 ug/dL (65-175) L 10/04/17 05:45 TIBC 313 ug/dL (240-450) 10/04/17 05:45 % Saturation 19 % 10/04/17 05:45 Unsat Iron Binding 255 ug/dL (69-240) H 10/04/17 05:45 Ferritin 137.63 ng/mL (21.81-274.66) 10/04/17 05:45 Total Bilirubin 0.4 mg/dL (0.00-1.20) 10/04/17 13:10 AST 12 U/L (15-37) L 10/04/17 13:10 ALT 21 U/L (12-78) 10/04/17 13:10 Alkaline Phosphatase 111 U/L (50-136) D 10/04/17 13:10 Total Creatine Kinase 304 U/L 10/04/17 01:08 CK-MB (CK-2) 1.9 ng/ml (0.0-3.6) 10/04/17 01:08 CK-MB (CK-2) % 0.52583 10/04/17 01:08 Total Protein 6.7 g/dL (6.4-8.2) 10/04/17 13:10 Albumin 3.2 g/dL (3.4-5.0) L 10/04/17 13:10 Globulin 3.5 10/04/17 13:10 Albumin/Globulin Ratio 0.91 10/04/17 13:10 Amylase 78 U/L (25-115) 10/03/17 20:20 Lipase 29 U/L (8-78) 10/03/17 20:20 Vitamin B12 853 pg/mL (213-816) H 10/04/17 05:45 Urine Color Yellow (YELLOW) 10/03/17 20:00 Urine Clarity Clear (CLEAR) 10/03/17 20:00 Urine pH 6.5 (5-9) 10/03/17 20:00 Ur Specific [place] 1.015 (1.005-1.030) 10/03/17 20:00 Urine Protein 1+ (NEGATIVE) 10/03/17 20:00 Urine Glucose (UA) Negative (NEGATIVE) 10/03/17 20:00 Urine Ketones Negative (NEGATIVE) 10/03/17 20:00 Urine Blood Trace-intact (NEGATIVE) 10/03/17 20:00 Urine Nitrite Negative (NEGATIVE) 10/03/17 20:00 Urine Bilirubin Negative (NEGATIVE) 10/03/17 20:00 Urine Urobilinogen 0.2 (0.2) 10/03/17 20:00 Ur Leukocyte Esterase Negative (NEGATIVE) 10/03/17 20:00 Urine Microscopic RBC 2-5 (0-2) 10/03/17 20:00 Urine Microscopic WBC 2-5 (0-2) 10/03/17 20:00 Ur Squamous Epith Cells 0-2 (0-5) 10/03/17 20:00 Amorphous Sediment Trace (NOT PRESENT) 10/03/17 20:00 Urine Bacteria Trace (NOT PRESENT) 10/03/17 20:00 Hyaline Casts 0-2 (NOT PRESENT) 10/03/17 20:00 Stl Occult Blood (IFOB) Positive (NEGATIVE) 10/04/17 05:15 Stool Occult Blood #2 No specimen received (NEGATIVE) 10/04/17 05:15 Stool Occult Blood #3 No specimen received (NEGATIVE) 10/04/17 05:15 Urine Opiates Screen Negative (NEGATIVE) 10/04/17 05:00 Ur Oxycodone Screen Negative (NEGATIVE) 10/04/17 05:00 Urine Methadone Screen Negative (NEGATIVE) 10/04/17 05:00 Ur Propoxyphene Screen Negative (NEGATIVE) 10/04/17 05:00 Ur Barbiturates Screen Negative (NEGATIVE) 10/04/17 05:00 U Tricyclic Antidepress Negative (NEGATIVE) 10/04/17 05:00 Ur Phencyclidine Scrn Negative (NEGATIVE) 10/04/17 05:00 Ur Amphetamine Screen Negative (NEGATIVE) 10/04/17 05:00 U Methamphetamines Scrn Negative (NEGATIVE) 10/04/17 05:00 U Benzodiazepines Scrn Negative (NEGATIVE) 10/04/17 05:00 Urine Cocaine Screen Negative (NEGATIVE) 10/04/17 05:00 U Cannabinoids Screen Negative (NEGATIVE) 10/04/17 05:00 Miscellaneous Test Sent to [facility] 10/04/17 01:11 Iron panel reviewed and reasonable. UDS negative US of scrotum this am. (1) Nausea vomiting and diarrhea Status: Acute Code(s): R11.2 - NAUSEA WITH VOMITING, UNSPECIFIED; R19.7 - DIARRHEA, UNSPECIFIED SNOMED Code(s): 8029189 (2) Hypokalemia Status: Acute Code(s): E87.6 - HYPOKALEMIA (3) Dysuria Status: Acute Code(s): R30.0 - DYSURIA SNOMED Code(s): 79822539 (4) SUZI (acute kidney injury) Status: Acute Code(s): N17.9 - ACUTE KIDNEY FAILURE, UNSPECIFIED SNOMED Code (s): 73525876 (5) Dehydration Status: Acute Code(s): E86.0 - DEHYDRATION SNOMED Code(s): 80482916 (6) Myalgia Status: Acute Code(s): M79.1 - MYALGIA SNOMED Code(s): 85999316 (7) Mild anemia Status: Acute Code(s): D64.9 - ANEMIA, UNSPECIFIED SNOMED Code(s): 105206289 (8) Leukocytosis Status: Acute Code(s): D72.829 - ELEVATED WHITE BLOOD CELL COUNT, UNSPECIFIED SNOMED Code(s): 832618764 (9) Testicular pain, left Status: Acute Code(s): N50.8 - OTHER SPECIFIED DISORDERS OF MALE GENITAL ORG * DO NOT USE * SNOMED Code(s): 61764270 Plan: Hypokalemia: Resolved. Stop the sodium chloride infusion and continue 2x daily potassium by mouth. SUZI: Resolved Dehydration: Resolved Anemia: Worsened Hgb now at 9.8. I suspect that this is likely his normal zone. Iron studies okay, b12 okay. Blood loss needs to be evaluated. GI is best bet for this. Colonoscopy would be helpful. Not to a level of transfusion. Monitor. Repeat in 1 week. Leukocytosis: Improved from yesterday 14.48 down to 13.52. Will d/c on levaquin and vancomycin to complete a 10 day course. Crohns: Suspect active flare at present. He has appt with GI tomorrow. I need him to keep this. He does not seem to understand this as chronic and that he may need lots of f/u with specialist to get this controlled. REmicade previously and then stopped. Do not think he can go back on that. Humira did not help him. I discussed steroids now and he will be d/c on 40mg daily prednisone for the next 2 weeks. We will also d/c him with levaquin and flagyl for 10 days. Still waiting on stool PCR from [facility]. He has chronic mesenteric adenopthy. Stranding densities of bladder. Cannot r/o cystitis but this is chronic. - Await stool PCR - F/U on blood cultures (so far negative) Left testicle pain: PRevious error noted left testicle removed. Exam supports right testicle is absent. We will US left testicle/scrotum. Levaquin should cover him for epididymitis. - Testicle US. C/O bladder pain: I noted levaquin should cover him for UTI if present but culture negative, no e/o UTI. CT shows chronic stranding around the bladder. Opiate tolerance/dependence: He did not like that we did not cover his pain with opiates while he was here. We did use tylenol w/o opiates as he has an issue with opiates, but does not want to talk about it. We reviewed differences in tolerance/dependence and addiction. He has been going to ER for a long time to get ultram. He mentioned a few ER docs by name and said that they did not want to help him anymore. He feels someone who gives him pain meds is helping him. 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 Discussed dangers of Benzo and opiates (even Mu agonist like ultram). No history of seizures but noted caution with ultram. Dispo: D/C fluids, continue PO K+. He has now normalized renal function, WBC improving, vitals stable, K+ normal. Chronic anemia, likely some hemodilution but likely baseline state. He is on steroids, on abx and needs to have appt with GI tomorrow. He still has numerous complaints, which change regularly. I discussed at length with him today the plans above, the need to see GI and the need to stick with a PCP and to work on the above. I suspect some underlying depression, discussed benzos can worsen depression but he did not want to hear that. New pain c/o this am left testicle. As noted above, US to make sure no torsion. Levaquin and steroids should help. R/B/a to steroids d/w patient. I would like to get him out today and mentioned x 3 that he cannot miss the appt tomorrow. He agreed with that plan. Nursing will let me know when his friend gets here. If around lunch time we may check another K+ and make sure it is still >3.0. Repeat K+ in 1 week 40meq BID. He agreed with that plan. >30 minutes this am rounding on patient. Still deciding on d/c home today or tomorrow. With K+/renal status improved would like D/C home today.
[2017-10-05] MEDS: KLONOPIN PO SCH (08:32)
[2017-10-05] MEDS: SOLU-MEDROL 40 MG IVP SCH (08:32)
[2017-10-05] MEDS: LEVAQUIN 750 MG in PREMIX 150 ML D5W 1 BAG IV SCH (08:32)
[2017-10-05] MEDS: K-DUR PO SCH ×2 (08:32→16:17)
[2017-10-05] MEDS: MULTIVITAMIN TABLET PO SCH (08:33)
--- NOTE | 2017-10-05 12:10 | US ---
Exam: Sylvester-scale and color Doppler ultrasonographic evaluation of the testicles and scrotum with dup miranda and spectral color waveform analysis. Comparison: CT abdomen pelvis performed 10/04/2017. Reason for exam: Left testicular pain. Absent right testicle. 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 The left testicle measures approximately 3.5 x 1.7 x 2.9 cm with normal appearing echotexture and nor mal vascular flow. No parenchymal mass lesion is seen within the left testicle. The left epididymis is unremarkable. There is a mild left varicocele. Impression: 1. Mild left sided varicocele. 2. No parenchymal mass lesion or evidence of torsion in the left testicle. 3. 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
[2017-10-05 14:47] VITALS: BP 110/64; TEMP 98
--- NOTE | 2017-10-05 17:06 | PCM.DC ---
Final Diagnosis: SUZI (acute kidney injury) (Acute): RESOLVED Dehydration (Acute): RESOLVED Dysuria (Acute): Chronic Hypokalemia (Acute): RESOLVED Leukocytosis (Acute): IMPROVING Mild anemia (Appears chronic): Needs monitoring Myalgia (Acute): IMPROVING Nausea vomiting and diarrhea (Acute): Chronic Testicular pain, left (Acute): (1) Nausea vomiting and diarrhea Status: Chronic Code(s): R11.2 - NAUSEA WITH VOMITING, UNSPECIFIED; R19.7 - DIARRHEA, UNSPECIFIED SNOMED Code(s): 0963278 (2) Hypokalemia Status: Resolved Code(s): E87.6 - HYPOKALEMIA (3) Dysuria Status: Chronic Code(s): R30.0 - DYSURIA SNOMED Code(s): 92096857 (4) SUZI (acute kidney injury) Status: Resolved Code(s): N17.9 - ACUTE KIDNEY FAILURE, UNSPECIFIED SNOMED Code(s): 82243876 (5) Dehydration Status: Resolved Code(s): E86.0 - DEHYDRATION SNOMED Code(s): 68295878 (6) Myalgia Status: Acute Code(s): M79.1 - MYALGIA SNOMED Code(s): 05606428 (7) Mild anemia Status: Chronic Code(s): D64.9 - ANEMIA, UNSPECIFIED SNOMED Code(s): 958794580 (8) Leukocytosis Status: Acute Code(s): D72.829 - ELEVATED WHITE BLOOD CELL COUNT, UNSPECIFIED SNOMED Code(s): 048450515, 468968799 (9) Testicular pain, left Status: Acute Code(s): N50.8 - OTHER SPECIFIED DISORDERS OF MALE GENITAL ORG * DO NOT USE * SNOMED Code(s): 35664779 Reason for Hospitalization: SUZI, Marked Hypokalemia, Crohns, myalgia/fatigue, anemia, leukocytosis Prognosis at Discharge: Stable to Improved. Condition at Discharge: Stable to Improved Medications at Discharge: Ambulatory Orders Medication Instructions Recorded Multivitamin [Multi-Vitamin Daily] 1 each PO DAILY 05/06/17 Clonazepam [Klonopin] 0.5 mg PO BID tablet 10/05/17 Levofloxacin [Levaquin] 750 mg PO DAILY #12 tablet 10/05/17 Metronidazole [Flagyl] 500 mg PO Q8H 12 Days #36 tablet 10/05/17 Potassium Chloride [K-Dur] 40 meq PO BID 30 Days #60 tab 10/05/17 Prednisone 40 mg PO ONCE 42 Days #49 tablet 10/05/17 Lab/Diagnostics: H/H Trends 10/03/17 10/04/17 10/05/17 Range/Units 20:20 05:45 05:05 Hgb 13.7 L 12.2 L 9.8 L (14.0-18.0) g/dl Hct 37.5 L 33.7 L 27.6 L D (42.0-52.0) % Na/K Trends 10/03/17 10/04/17 10/04/17 Range/Units 20:20 05:45 13:10 Sodium 137 137 138 (136-145) mmol/L Potassium 2.1 L* 2.3 L* 2.5 L* (3.5-5.1) mmol/L 10/05/17 10/05/17 Range/Units 05:05 12:30 Sodium 143 (136-145) mmol/L Potassium 3.5 3.3 L (3.5-5.1) mmol/L BUN/CR Trends 10/03/17 10/04/17 10/04/17 Range/Units 20:20 05:45 13:10 BUN 17 20 H 20 H (7-18) mg/dL Creatinine 1.49 H 1.27 H 1.37 H (0.60-1.10) mg/dL 10/05/17 Range/Units 05:05 BUN 16 (7-18) mg/dL Creatinine 0.96 (0.60-1.10) mg/dL Laboratory Last Values WBC 13.52 K/ul (4.2-10.2) H 10/05/17 05:05 RBC 3.28 10^6/ul (4.70-6.10) L 10/05/17 05:05 Hgb 9.8 g/dl (14.0-18.0) L 10/05/17 05:05 Hct 27.6 % (42.0-52.0) L D 10/05/17 05:05 MCV 84.1 fl (80.0-94.0) 10/05/17 05:05 MCH 29.9 pg (27.0-31.0) 07/24/18 05:05 MCHC 35.5 (31.8-35.4) H 10/05/17 05:05 RDW Coeff of Svitlana 13.4 % (11.6-14.8) 10/05/17 05:05 Plt Count 246 10^3/uL (140-440) 10/05/17 05:05 Immature Gran % (Auto) 1.1 % (0.0-5.0) 10/05/17 05:05 Neut % (Auto) 65.1 10/05/17 05:05 Lymph % (Auto) 20.5 (10.0-50.0) 10/05/17 05:05 Beauregard % (Auto) 13.0 (0-10) H 10/05/17 05:05 Eos % (Auto) 0.2 % (0.0-7.0) 10/05/17 05:05 Baso % (Auto) 0.1 % (0.0-3.0) 10/05/17 05:05 Immature Gran # (Auto) 0.2 (0.0-1.0) 10/05/17 05:05 Neut # (Auto) 8.8 K/ul (2.0-6.9) H 10/05/17 05:05 Lymph # (Auto) 2.8 K/uL (0.60-3.4) 10/05/17 05:05 Beauregard # (Auto) 1.8 K/uL (0.4-2.0) 10/05/17 05:05 Eos # (Auto) 0.0 K/ul (0.0-0.7) 10/05/17 05:05 Baso # (Auto) 0.0 K/uL (0-0.2) 10/05/17 05:05 Sodium 143 mmol/L (136-145) 10/05/17 05:05 Potassium 3.3 mmol/L (3.5-5.1) L 10/05/17 12:30 Chloride 120 mmol/L (98-107) H 10/05/17 05:05 Carbon Dioxide 17 mmol/L (21-32) L 10/05/17 05:05 Anion Gap 9.5 10/05/17 05:05 BUN 16 mg/dL (7-18) 10/05/17 05:05 Creatinine 0.96 mg/dL (0.60-1.10) 10/05/17 05:05 Estimated GFR (MDRD) 90.00 mL/min 10/05/17 05:05 BUN/Creatinine Ratio 16.66 10/05/17 05:05 Glucose 96 mg/dL (70-100) 10/05/17 05:05 Calcium 8.7 mg/dL (8.2-10.2) 10/05/17 05:05 Magnesium 2.4 mg/dL (1.7-2.2) H 10/03/17 20:20 Iron 58 ug/dL (65-175) L 10/04/17 05:45 TIBC 313 ug/dL (240-450) 10/04/17 05:45 % Saturation 19 % 10/04/17 05:45 Unsat Iron Binding 255 ug/dL (69-240) H 10/04/17 05:45 Ferritin 137.63 ng/mL (21.81-274.66) 10/04/17 05:45 Total Bilirubin 0.4 mg/dL (0.00-1.20) 10/04/17 13:10 AST 12 U/L (15-37) L 10/04/17 13:10 ALT 21 U/L (12-78) 10/04/17 13:10 Alkaline Phosphatase 111 U/L (50-136) D 10/04/17 13:10 Total Creatine Kinase 304 U/L 10/04/17 01:08 CK-MB (CK-2) 1.9 ng/ml (0.0-3.6) 10/04/17 01:08 CK-MB (CK-2) % 0.36048 10/04/17 01:08 Total Protein 6.7 g/dL (6.4-8.2) 10/04/17 13:10 Albumin 3.2 g/dL (3.4-5.0) L 10/04/17 13:10 Globulin 3.5 10/04/17 13:10 Albumin/Globulin Ratio 0.91 10/04/17 13:10 Amylase 78 U/L (25-115) 10/03/17 20:20 Lipase 29 U/L (8-78) 10/03/17 20:20 Vitamin B12 853 pg/mL (213-816) H 10/04/17 05:45 Urine Color Yellow (YELLOW) 10/03/17 20:00 Urine Clarity Clear (CLEAR) 10/03/17 20:00 Urine pH 6.5 (5-9) 10/03/17 20:00 Ur Specific Mcintosh 1.015 (1.005-1.030) 10/03/17 20:00 Urine Protein 1+ (NEGATIVE) 10/03/17 20:00 Urine Glucose (UA) Negative (NEGATIVE) 10/03/17 20:00 Urine Ketones Negative (NEGATIVE) 10/03/17 20:00 Urine Blood Trace-intact (NEGATIVE) 10/03/17 20:00 Urine Nitrite Negative (NEGATIVE) 10/03/17 20:00 Urine Bilirubin Negative (NEGATIVE) 10/03/17 20:00 Urine Urobilinogen 0.2 (0.2) 10/03/17 20:00 Ur Leukocyte Esterase Negative (NEGATIVE) 10/03/17 20:00 Urine Microscopic RBC 2-5 (0-2) 10/03/17 20:00 Urine Microscopic WBC 2-5 (0-2) 10/03/17 20:00 Ur Squamous Epith Cells 0-2 (0-5) 10/03/17 20:00 Amorphous Sediment Trace (NOT PRESENT) 10/03/17 20:00 Urine Bacteria Trace (NOT PRESENT) 10/03/17 20:00 Hyaline Casts 0-2 (NOT PRESENT) 10/03/17 20:00 Stl Occult Blood (IFOB) Positive (NEGATIVE) 10/04/17 05:15 Stool Occult Blood #2 No specimen received (NEGATIVE) 10/04/17 05:15 Stool Occult Blood #3 No specimen received (NEGATIVE) 10/04/17 05:15 Urine Opiates Screen Negative (NEGATIVE) 10/04/17 05:00 Ur Oxycodone Screen Negative (NEGATIVE) 10/04/17 05:00 Urine Methadone Screen Negative (NEGATIVE) 10/04/17 05:00 Ur Propoxyphene Screen Negative (NEGATIVE) 10/04/17 05:00 Ur Barbiturates Screen Negative (NEGATIVE) 10/04/17 05:00 U Tricyclic Antidepress Negative (NEGATIVE) 10/04/17 05:00 Ur Phencyclidine Scrn Negative (NEGATIVE) 10/04/17 05:00 Ur Amphetamine Screen Negative (NEGATIVE) 10/04/17 05:00 U Methamphetamines Scrn Negative (NEGATIVE) 10/04/17 05:00 U Benzodiazepines Scrn Negative (NEGATIVE) 10/04/17 05:00 Urine Cocaine Screen Negative (NEGATIVE) 10/04/17 05:00 U Cannabinoids Screen Negative (NEGATIVE) 10/04/17 05:00 Miscellaneous Test Sent to [facility] 10/04/17 01:11 US testicle negative for acute process CT abd/pelvis without contrast: Perivesicular standing (same as CT 07/2017). Air fluid levels throughout colon thickening of RUQ supportive of enterocolitis/ diarrhea. Education Provided to Patient and Family: 1. Needs f/u with GI, please keep appt tomorrow. 2. Discussed case with [facility] MARTELL, recommended 14 days flagyl/levaquin and these were provided to patient. 3. Discussed case with [facility]i MARTELL and they recommended 14 days of prednisone 40mg daily then 20mg x 14 days then 10mg x 14 days. Rx provided 4. No rx for jessicaien as he has contract with psych and has rx at pharmacy to fill in 48-72 hours. 5. He asked for ultram even at d/c I stated no. 6. Avoid NSAIDS such as aleve/ibuprofen. 7. Stay hydrated 8. Potassium presciption given 9. Would f/u with PCP in 1 week and I would recommend CBC and CMP at that time. Follow-ups: 1. PCP Dan[place] in [address] Harden office [place] Tomorrow. Disposition: HOME SELF-CARE Hospital Course: 10/03/17 32 yr old WM historically terminated from practice was seen in ER at [facility]. Dr. Brown saw patient around 11 pm on 10/05/17 for myalgia, fatigue, diarrhea and nausea/vomiting. Chronic diarrhea, history of crohns, 48- 72 hours of 2-3x emesis and no emesis day of admit. Patient has chronic abdominal pain, history of pancreatitis now with lethargy decreased PO intake, N /V/D. Reported Burning with urination also. Similar symptoms were addressed in my office. We noted his weight had been unchanged from that OV. Vitals supported dehydration and he was afebrile. Reported worsening of symptoms w/ meals and food, cramping, abdominal pain denied dizziness, lightheadedness, melena, hematemsis, and fever. Labs were ordered by ER and his K+ was found to be dangerously low at 2.1. He was also found to have SUZI, mild anemia and mild leukocytosis. He was given 1000ml RL w/ 10 K but no PO as not tolerating PO. UA, CBC, CMP, zeyad/lip checked. EKG was okay. Zofran given for nausea. Then they called me for admit. He was not given anything for pain. He reported to me 2-3 months of feeling badly. Due to see Dr. Banks this wed in [facility], new GI doctor. Previously saw Dr. Newsome, no visit with GI in a few years. He has been trying to find a MD but nobody will help. Emesis x 24 hours, 2x total, none in last 12-20 hours. Chronic diarrhea since 2007. Takes iron intermittently, when insurance will pay for it. Historical Hypokalemia but insurance is not paying for this either over past 2-3 months. Aching, cramping and weak. I asked if it started in [facility] and he noted it had. He has had nephrolithiasis historically and saw Dr. Valentin -06/2017 for this problem and had lithotripsy per patient. He notes no other sick contacts, no abnl food, has not consumed any salad from [employer] or undercooked foods. No recent travel. Appetite down. He felt he had lost 7 lb in last month. I discussed he was 146 05/06/17 at our last visit, he was shocked. Burning with urination, similar to those visits with DR. Valentin ( UROLOGY). Present over last 1-2 weeks and unchanged. Last use of pain meds a few days ago. Tylenol minimal benefit. Not using NSAIDS. No ETOH, no drugs. Used remicade for his crohns historically but insurance stopped paying and he stopped. Tried humira and this did not help him. Sulfasalazine helped but no use of this in 1-2 years. Cscope within last 1-2 year. HE denies any blood in stool, no dark blood, no melena. He has chronic diarrhea ~2-3x per day. Ileostomy reverasl in 2011 and Ostomy placed originally 2007. Chronic insomnia , on ambien, requested this. R/B/A to this agent d/w patient. We will give this to him. Daily klonopin as well per his report. I checked a [employer] Ambien filled by [facility] #30 09/29/17. Tramadol 5mg #10 for 2 days on 09/19, #10 for 3 days on 09/13/17, Klonopin by [facility] morgan #60 09/06/17, ambien #30 09/01/17, tramadol Dr. Chao 50mg #15 for 5 days on 08/30, #10 on 08/16 and klonopin #60, ambien #30 08/04. 07/26/17 #[address] Then [address] Wolff #2 tramadol, Dr. Chao 07/10/17 #15 for 3 days. 06/30/17 50mg trmadol # [address] Valentin. 12 for 3 days on 06/27/[address] Chao. Then [address] Valentin 30 for 8 days on 06/26, 30 for 8 days on 06/19, 30 for 8 days on 06/14 and 15 for 3 days on 06/09/17. We started him on 40meq K+ TID with meals, sodium chloride +20meq K 125ml/hour and gave him ambien QHS, klonopin 0.5mg BID and tylenol 650mg TID. We did check B12, normal. Checked iron studies and reasonable. He felt that "I know something is wrong with my body." I discussed with him N/V/D can lead to worsening K+. Low K+ can cause the symptoms he is describing. Feels like it did after I had my stone. Labs reviewed, Zeyad/lip negative. AST/ALT negative. We sent Stool for PCR evaluation for infection. There is a local Cyclospora outbreak. SUZI, hypoK, Mildly elevated mag, elevated WBC, low HGB. Checking back through records, nearly weekly ER visits with pain medications. I discussed that we would likely not provide pain meds here for this problem. K+ baseline 3.2-3.7. He agreed to this plan. Repeat vitals on floor reviewed BP was 119/77 and HR was 82. He had already improved with fluids/K+. 10/04/17 K+ 2.3. This improved from the 2.1. 40mg PO Potassium TID with meals. Ct abd/ pelvis without contrast completed and showed previous right hemicolectomy, air- fluid levels throughout colon. Mild thickening of bowl within RUQ w/ edema. Correlate for enterocolitis/diarrhea. Mesenteric LAD similar to prior examination. Perivesicular stranding correlate for cystitis. CPK was reported as within range and okay. NO reported telemetry concerns. I came in and saw patient, talked with him about his am labs. WBC has increased from 12.74 to 14.48 despite fluids (expected a decline). Hgb has dropped from 13.7 to 12.2 which I expected with fluid hydration and his creatinine has improved as well from 1.49 to 1.27 with a baseline of ~0.9. Low uout, still anuric. 1 large stool was collected for hemoccult (POSITIVE) and CDIFF (NEGATIVE) and PCR. Pain rated at 3/10. Tylenol was given for his pain. NOt on anything stronger at this point due to history of opiate issues. Vitals remained stable. Patient felt better, less fatigued and achy than he did day of admit. 1 stool in hospital, studies collected. Adding blood cultures, urine culture was negative. Afebrile overnight. He did not sleep well, but we did not finish admit until early am. Pain in abdomen is unchanged. He had numerous complaints , body pain, knee pain, toe pain, bakers cyst pain. No MASSEY, no vision changes, no chest pain, no URI sx. Chronic diarrhea, somewhat worse over last 48 hours up to 2 weeks. Poorly compliant with GI care. Chronic crohns with no regular f/ u. Per [place] nurse he had a chicken salad sadnwich, three packs of rosalee crackers , two peanut butter cartons, carton of 2% milk, ice cream and pudding. THis did not cause any GI issues. The story is interesting/odd with his presentation. I would suspect that if he had peritonitis or flare of crohns that he would be avoiding food and not requesting it. Afternoon labs ordered. Improved K+ to 2.5. NO labs overnight as patient wanted to sleep. Discussed case with Dr. Worthington in [place] and she was very helpful. We started patient on levaquin 750 daily, methylprednisolone 40mg IV daily, flagyl 500 q 8 hours daily. 10/05/17: DAY OF DISCHARGE: Per nurses, the patient has been asking for multiple items throughout his stay. He has eaten very well, not shy to ask for snacks throughout the stay. He complains of pain everywhere but walked fine and as noted ate well. No emesis during stay. Did not want SCD/KENNY and told nurse he would put them on later. C /O pain everywhere, c/o achiness, lack of energy. 13:45 yesterday K+ had improved from 2.3 to 2.5. at 20:16 he was given some pain medication tylenol for 5/10 stabbing pain all over, pain in legs, weakness. 10mg ambien given at 20:17 and 20:49 per nurse Jessicafermín worried about everything, anxiety about his entire stay, about what was wrong with him and she alleviated his fears. Klonopin home med given BID during stay. Late last night c/o left testicle pain. 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 It appeared on exam that he was missing the left. However spermatic cord does trace to the left and he is missing right testicle. At 04:05 this am he asked for food, drank orange juice , ate a sandwich and crackers (quickly) and then complained of nausea. He has had zofran ordered while here. I saw him around 7:15 this am. He remained worried about everything, asked the same questions as discussed previously. He wanted to know why he hurt all over, why he had diarrhea, why his intestines were inflamed, why he has no energy. "I just know my body and something is wrong." I had a very long conversation with him over a 30 minute period, nurse Escalona in room with me. I discussed inflammation of the bowel has led to irritation and this can likely explain the anemia. He has not been eating/ drinking well and this could explain the low potassium. I told him this am we had good news. K+ back to 3.5, creatinine back to baseline. Anemia mildly worse but I suspected this with net + of ~3L. His rate of urine output had been great with 1185 out in last 24 hours and a rate of 0.74ml/kg/hour. Reviewed his labs with him this am WBC has decreased from 14.48 to 13.52. Hgb has steadily dropped with fluid hydration from 13.7 to 9.8. Plt 332 to 246. Differential is not concerning with 13% mono and Neut # 8.8. Remainder of diff normal. As noted above, K+ has improved to 3.5, Chlorine is up to 120, we stopped the NS but continue BID K+Cl- at 40meq. Creatinine has improved from 1.37 to 0.96 this am. Calcium stable at 8.7. Iron studies looked okay, B12 was normal. Cdiff was negative. Misc PCR stool send out not back yet. I called lab and so far negative blood cultures. Vitals pulse 98, temp afebrile entire stay. BP 106/64, O2 100%. Tele continuous showed NSR, ST all w/ BB. He was very worried, down. No SI/HI but he is worried about everything. With Iqra in room in the am we discussed discharge. e discussed home on flagyl/ levaquin to continue. We talked about his testicle pain 07/22. We checked US of this area this am and it was fine. No e/o Epididymitis nor torsion. Most important next step is to see GI and to start the process of controlling the crohns. The patient did not seem to understand the importance of regular f/u with PCP and specialists. 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 We talked again about the idea that we ARE trying to help him, we set up referrals, we have attempted to w/u problems but we cannot help him if he does not take his Rx, if he does not go to the specialist. I will not worsen his overall health with pain meds. I discussed sometimes the best, most loving answer is to say "NO." I told him I worried about him, I wanted him to feel better and to not be in pain, to not have GI issues, to not have crohns and I certainly hope that he has success with GI tomorrow. Keeping him in hospital and missing appt would be the wrong choice for this patient. We talked with the team yesterday, they were incredibly helpful (relayed this to the patient) and that I feel that the team in [place] is the right choice for him. Talked with Talia, Dr. Worthington and both were incredibly helpful with his care and have already started helping before he got there. He thinks when his friend gets here this afternoon he wants to go home. K+ remained 3.3 this afternoon, which is about his baseline. He wanted to go. He asked numerous times about his labs and I repeated the information that I gave him previously. The patient asked me for 3ambien and ultram. I again noted no. He gets the ambien from psych and has a contract. I told him no pain meds for now. Discharged this afternoon with resolved SUZI, resolved hypokalemis, improved leukocytosis, improved abdominal pain, improved myalgia/fatigue. Anemia needs to be monitored. Day of Discharge Physical Exam: (taken from progress note 10/05/17 by me) Constitutional: Appearance-Lying supine in bed still w/o acute distress, numerous c/o, achiness, pain. Strength is fine, he is ambulating in halls 1-2x daily. KENNY/SCD not on at present, I discussed again that these are the method that he needs to use to prevent clot for now. Appears consistent with stated age. Answered all questions. Awake in bed, lying supine. Repeated questions from yesterday. "Why do I hurt? Why is my blood cells low?" Orientation- Oriented x 3, alert Build and Nutrition- Normal General- Patient is pleasant and cooperative with the interview and exam. Weight unchanged. Integumentary: General-No rashes, ulcers or lesions. Palpation- Normal skin moisture/turgor. Skin is warm to touch, appropriate. Capillary refill is normal bilateral Upper and lower extremity. No tenting on chest Head/Neck: Head- normocephalic and atraumatic. Neck- without visible/palpable lumps or pulsations. Palpation- No bony tenderness about head/neck along frontal, occipital, temporal, parietal, mastoid, jawline, zygoma, orbit or any other location. NO temporal artery tenderness. No TMJ tenderness. Neck Supple. Thyroid-No thyromegaly, no nodules Eye: Bilaterally PERRLA, EOMI. No discharge. Upper and lower eyelids are normal. Sclera/conjunctiva normal without discharge. Cornea is normal and clear. Lens is normal. Eyeball appears normal. No ciliary flushing, no conjunctival injection. ENMT: Nose and sinus- No sinus tenderness along frontal/maxillary region. External appearance normal and midline. Nares- bilateral quiet airflow, no discharge. Nasal mucosa- No bleeding noted and no ulcerations observed. [place], moist. Turbinates non boggy. Lips- normal color, moist without cracks/lesions Oral Cavity/Palate- hard/soft palate intact without lesions, oral mucosa is moist this am. no lip cracking. Tongue normal midline. Oropharynx- no pharyngeal erythema, Uvula midline. No post nasal drip. No exudate. Salivary glands- Non tender to palpation CHEST/LUNG: Inspection- symmetric chest wall no pectus deformity. Normal effort , no distress, no use of accessory muscles. Palpation- nontender sternum, ribline. No abnormal pulsations. Auscultation- Breath sounds normal throughout all lung prasad. Normal tracheal sounds, Normal bronchial sounds overlying sternum, Bronchovessicular sounds normal between scapulae posteriorly, Normal vessicular breath sounds heard throughout periphery. Lungs are clear today. Adventitious sounds- No wheezes, rales, rhonchi. CARDIOVASCULAR: Carotid artery- normal, no bruits or abnormal pulsations. Jugular vein- no pulsations. Palpation/Percussion- Normal PMI, no palpable thrill Auscultation- Regular rate and rhythm. No murmur noted in sitting, supine positions. Extremities- no digital clubbing, cyanosis, edema, increased warmth. ABDOMEN: Inspection- normal and no visible pulsations. Normal contour. Prominent scar lower abdomen. Auscultation- Bowel sounds normal, no abdominal bruits. Palpation/Percussion- soft, tender generalized no wincing today. Last 48 hours winced with exam. I palpated while distracting with stethoscope and he did not report any pain, did not wince,no rebound, no guarding, no rovsing, no mcburney. Still reports Suprapubic, RLQ, LLQ, RUQ. Now with LLQ and testicular pain. no masses. Essentially Unchanged, chronic. Scar lower abdomen. Liver-no obvious hepatomegaly, Patient transport in room, exam completed in ER and reported and noted left testicle missing. It appears that this was an error, I addended H+P. 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 With nurse Iqra in room, left testicle is mildly tender about the epididymus (levaquin should cover). He then asked me if his bladder was okay (levaquin should cover for bladder infection). CT scan results reviewed with patient again and ?Chronic inflammatory process. Peripheral Vascular: Upper extremity Left- Normal temperature with pink nailbeds and no ulcerations. Upper extremity Right- Normal temperature with pink nailbeds and no ulcerations. Lower extremity- Normal temperature with pink nailbeds and no ulcerations. DP pulses 2+ bilaterally. Pedal hair intact. Normal capillary refill. Edema- No edema. +KENNY/SCD in place. Musculoskeletal: Generalized-No generalized swelling or edema of extremities, no digital clubbing or cyanosis, neurovascularly intact all four extremities. moving all 4. Strength 5/5 bilateral UE and he has noted subjective improved symptoms. No calf tenderness, no edema. Still with strength 5/5 bilateral UE an dGrip 5/5 bilaterally. NO bony tenderness. Normal girdle strength, no rash. NO tenderness along spine. Reported again about bakers cyst on knee that if present is minimal, c/o great toe pain on right. No e/o bunion, no rash, no skin breakdown. "Its arthritis in my knees and hips and toes," I was told it was there. Upper extremity- Symmetrical posture. No visible deformity. Normal sensation along medial and lateral upper extremity proximally and distally. NO tenderness overlying shoulder, lateral/medial epicondyle. 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 Elbow palpated, no tenderness overlying olecranon. Normal supination, pronation to active/passive ROM and to resisted rotation. Bicep insertion/tricep insertion appear normal without obvious pathology. Rotator cuff evaluated and intact. Normal wrist ROM bilaterally. Normal hand movement, intrinsic muscles of hands normal. No tenderness to palpation of hands/wrists/ elbows. Strength appears normal. Lower extremity- Hip: Not tender to palpation, no pain, no swelling, edema or erythema of surrounding tissue, normal strength and tone. Normal appearing hip ROM bilaterally without pain. Knee: Knee ROM normal. No tenderness overlying trochanters, no tenderness about patella, quad tendon, patellar tendon. No tenderness at tibial tuberosity. Ankle: normal ROM not tender to palpation along medial/lateral malleolus. Foot: Normal movement of toes, no tenderness bilateral feet/toes. Normal foot type. Strength appears normal. Ankle clonus testing negative. 2 beats. Hummel testing normal bilaterally. Homans negative. Spine/Ribs- No deformities, masses or tenderness, no known fractures, normal strength, Normal ROM. Normal stability No tenderness along C/T/L spine. Normal appearing ROM about spine. Neurological: General- Moves all 4 extremities symmetrically. Symmetrical face and body posture. Cranial nerves- individually evaluated II-XII and intact. PERRLA, Normal EOMI, visual/special senses appear intact, Face is symmetrical and normal sensation/movement, normal tongue, normal strength/posture of neck musculature. Reflexes- intact with DTR 2+ patellar, Achilles, bicep, brachial, tricep. Ankle clonus normal with 2 beats. Strength- 5/5 bilateral UE and LE. Soft touch- intact bilateral UE and LE. Temperature sensation- intact bilateral UE and LE. Neuropsych: Oriented- Person, place, time. (AAOx3), Mood/affect- Worried, nervous, anxious. I suspect depression. NO SI/HI. He is able to articulate well but asks the same questions multiple times. Speech-Normal speech, normal rate, normal tone, normal use of language, volume and coherence. Thought content- Worried, preoccupied but not paranoid or delusional. Associations- intact, no SI/HI, no hallucinations, delusions, obsessions. Judgment/insight- Appropriate. Memory-Recall intact, remote and recent memory intact. Knowledge- Age appropriate fund of knowledge, concentration and attention span normal. Lymph: No enlarged cervical LN, No axillary LN, no inguinal nodes obvious on exam. He has tenderness along the inguinal ligament but no obvious enlarged LN. History of LN enlargement in abdomen, he said why are these enlarged. I again mentioned the inflammation in the intestines. "Why is there inflammation in my intestines?" I discussed crohns is an inflammatory bowel disease. Plan: 1. D/C home 2. F/U with Dr. Harden Tomorrow. 3. F/U with PCP in 1 week 4. Take abx flagyl q 8hours x 12 days 5. Take levaquin q day x 12 days 6. D/W patient r/b/a to abx, to prednisone and risks of myalgia/achilles tendon issues. 7. Take prednisone 40mg x 14 days, 20mg x 14 days, 10 mg x 14 days. Discuss with PCP next steps. 8. Regular f/u with PCP and with GI. 9. Regular hydration important 10. REgular meals important 11. Potassium 40meq BID with meals as outpatient. 12. CBC to recheck anemia in 7-10 days. 13. CMP to recheck creatine and potassium in next 7-10 days 14. Return to ER if worsening or if symptoms not improving. >30minutes spent in coordination of care and preparation of d/c and education with patient on 10/05/17. Admit 10/03/17 Dr. Salas Discharge 10/05/17 Dr. Salas
== END 2017-10-05 17:15 | disposition home or self-care (01) | DRG 392 ==
LOC: ED 19:40 → MEDSURG B 10-04 00:05 → OBSVTOIN 10-04 00:05
PROVIDERS: ADMIT Family Medicine; ATTEND Family Medicine
DX: R11.2 Nausea with vomiting, unspecified (principal); N17.9 Acute kidney failure, unspecified; K50.90 Crohn's disease, unspecified, without complications; R19.7 Diarrhea, unspecified; E87.6 Hypokalemia; R30.0 Dysuria; E86.0 Dehydration; M79.1 Myalgia; D64.9 Anemia, unspecified; D72.829 Elevated white blood cell count, unspecified; N50.812 Left testicular pain; F41.9 Anxiety disorder, unspecified
CPT/HCPCS: 36415; 80048; 80053; 80306; 81001; 82150; 82272; 82550; 82553; 82607; 82728; 83540; 83550; 83690; 83735; 84132; 84133; 85025; 87040; 87086; 87493; 93005; 93010; 96361; 96365; 96375; 99284

== ENCOUNTER 2017-10-10 11:26 | Emergency (ER) ==
[2017-10-10 11:30] VITALS: BP 121/82; TEMP 97.7; BMI 24.7
--- NOTE | 2017-10-10 12:47 | ED.PDOC ---
General ED Provider: Dr. JULEE GONZALEZ-ER Chief Complaint: Abdominal Pain Stated Complaint: im hurting again and im out of ultram Time Seen by Physician: 11:30 Mode of Arrival: Walk-In Information Source: Patient Exam Limitations: No limitations Nursing and Triage Documentation Reviewed and Agree: Yes Does patient meet sepsis criteria?: No System Inflammatory Response Syndrome: Not Applicable Sepsis Protocol: For patient's 13 years and over: Temp is 96.8 and below OR 101 and greater Pulse >90 BPM Resp >20/minute Acutely Altered Mental Status Are patient's symptoms suggestive of a new infection, such as: -Pneumonia -Skin, Soft Tissue -Endocarditis -UTI -Bone, Joint Infection -Implantable Device -Acute Abdominal Infection -Wound Infection -Meningitis -Blood Stream Catheter Infection -Unknown GI Complaint Exam - Abdominal Pain Complaint/Exam Onset: Gradual Duration: several days Symptoms Are: Still present Timing: Constant Initial Severity: Mild Location of Pain: Diffuse Character: Reports: Dull, Aching Aggravating: Reports: None Alleviating: Reports: Spontaneous resolution Associated Signs and Symptoms: Denies: Diaphoresis, Fever, Cough, Chest pain, Dizziness, Back pain, Constipation, Blood in stool, Dysuria, Urinary frequency, Decreased urine output, Decreased appetite, Discharge, Nausea, Vomiting, Diarrhea, Decreased activity Related History: Reports: Similar episode Abdominal Findings: Present: None Differential Diagnoses: Other Review of Systems - Review Of Systems Constitutional: Reports: No symptoms Eyes: Reports: No symptoms Ears, Nose, Mouth, Throat: Reports: No symptoms Respiratory: Reports: No symptoms Cardiac: Reports: No symptoms GI: Reports: Abdominal pain : Reports: No symptoms Musculoskeletal: Reports: No symptoms Skin: Reports: No symptoms Neurological: Reports: No symptoms Endocrine: Reports: No symptoms Hematologic/Lymphatic: Reports: No symptoms All Other Systems: Reviewed and Negative Past Medical History - Past Medical History Previously Healthy: Yes Endocrine: Reports: Hypothyroid, Dyslipidemia Cardiovascular: Reports: None Respiratory: Reports: None Hematological: Reports: None Gastrointestinal: Reports: GERD, Crohn's, Pancreatitis Genitourinary: Reports: Kidney stones Neuro/Psych: Reports: Depression Musculoskeletal: Reports: None Cancer: Reports: None - Surgical History General Surgical History: Reports: Other (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, INTESTINAL RESECTION) - Family History Family History: Reports: Unknown - Social History Smoking Status: Never smoker Hx Substance Use: No Alcohol Screening: None - Immunizations Influenza Vaccine within 12 Months: Yes Pneumococcal Vaccine up to Date: Yes Physical Exam - Physical Exam Appearance: Well-appearing Eyes: DISHA ENT: Ears normal, Nose normal, Oropharynx normal Neck: Supple Respiratory: Airway patent, Breath sounds clear, Breath sounds equal, Respirations nonlabored Cardiovascular: RRR, Pulses normal, No rub, No murmur GI/: Soft, Nontender, No masses, Bowel sounds normal, No Organomegaly Musculoskeletal: Normal strength, ROM intact, No edema, No calf tenderness Skin: Warm, Dry, Normal color Neurological: Sensation intact, Motor intact, Reflexes intact, Cranial nerves intact, Alert, Oriented Psychiatric: Affect appropriate, Mood appropriate Critical Care Note - Critical Care Note Total Time (mins): 0 Course - Course Hematology/Chemistry: 10/10/17 11:45 10/10/17 11:45 Orders, Labs, Meds: Lab Review 10/10/17 10/10/17 10/10/17 11:45 11:45 12:00 WBC 11.71 H RBC 3.66 L Hgb 10.9 L Hct 31.4 L MCV 85.8 MCH 29.8 MCHC 34.7 RDW Coeff of Svitlana 13.4 Plt Count 225 Immature Gran % (Auto) 1.2 Neut % (Auto) 69.9 Lymph % (Auto) 19.7 [place] % (Auto) 7.2 Eos % (Auto) 1.8 Baso % (Auto) 0.2 Immature Gran # (Auto) 0.1 Neut # (Auto) 8.2 H Lymph # (Auto) 2.3 [place] # (Auto) 0.8 Eos # (Auto) 0.2 Baso # (Auto) 0.0 Sodium 136 Potassium 3.9 Chloride 111 H Carbon Dioxide 16 L Anion Gap 12.9 BUN 21 H Creatinine 1.38 H Estimated GFR (MDRD) 59.00 BUN/Creatinine Ratio 15.21 Glucose 117 H Calcium 8.8 Total Bilirubin 0.2 AST 14 L ALT 44 Alkaline Phosphatase 103 Total Protein 7.0 Albumin 3.3 L Globulin 3.7 Albumin/Globulin Ratio 0.89 Amylase 71 Lipase 48 Urine Color Yellow Urine Clarity Clear Urine pH 6.0 Ur Specific [place] 1.025 Urine Protein 2+ Urine Glucose (UA) Negative Urine Ketones Negative Urine Blood Negative Urine Nitrite Negative Urine Bilirubin Negative Urine Urobilinogen 0.2 Ur Leukocyte Esterase Negative Urine Microscopic RBC 0-2 Urine Microscopic WBC 2-5 Ur Squamous Epith Cells 0-2 Urine Bacteria 1+ Orders Category Date Time Status AMYLASE Stat LAB 10/10/17 11:45 Completed CBC W/ AUTO DIFF Stat LAB 10/10/17 11:45 Completed COMPREHENSIVE METABOLIC PANEL Stat LAB 10/10/17 11:45 Completed LIPASE Stat LAB 10/10/17 11:45 Completed URINALYSIS C & S IF INDICATED Stat LAB 10/10/17 12:00 Completed URINE CULTURE Stat LAB 10/10/17 12:00 Received ABDOMEN 1 VIEW Stat RADS 10/10/17 11:44 Taken Ephraim has chronic abd pain and he has no "red flag" symptoms such as fever, vomiting or blood in the stool. Vital Signs: Temp Pulse Resp BP Pulse Ox 10/10/17 11:26 97.7 F 109 H 20 121/82 97 Departure - Departure Time of Disposition: 12:46 Disposition: HOME SELF-CARE Discharge Problem: Abdominal pain Instructions: Chronic Abdominal Pain (ED) Condition: Good Pt referred to PMD for follow-up: Yes IPMP verified?: No Additional Instructions: ultram 50mg q 6hrs prn pain #15--f/u [facility] pcp Allergies/Adverse Reactions: Allergies No Known Allergies Allergy (Verified 10/10/17 11:34) Home Medications: Ambulatory Orders Multivitamin [Multi-Vitamin Daily] 1 each PO DAILY 05/06/17 Clonazepam [Klonopin] 0.5 mg PO BID tablet 10/05/17 Levofloxacin [Levaquin] 750 mg PO DAILY #12 tablet 10/05/17 Metronidazole [Flagyl] 500 mg PO Q8H 12 Days #36 tablet 10/05/17 Potassium Chloride [K-Dur] 40 meq PO BID 30 Days #60 tab 10/05/17 Prednisone 40 mg PO ONCE 42 Days #49 tablet 10/05/17 Zolpidem Tartrate [Ambien] 10 mg PO BEDTIME 10/10/17 Disposition Discussed With: Patient
--- NOTE | 2017-10-10 13:40 | DI ---
Exam: Single view of the abdomen. Comparison: CT abdomen pelvis performed 10/06/2017. Reason for exam: Abdominal pain. FINDINGS: The bowel gas pattern is nonspecific and nonobstructive with multiple air and fluid-filled loops of large bowel seen throughout the abdomen. Operative changes are seen in the right lower quad rant. Impression: Nonspecific, nonobstructive bowel gas pattern with air and fluid-filled loops of large b owel seen throughout the abdomen and pelvis
== END 2017-10-10 13:05 | disposition home or self-care (01) ==
LOC: ED 11:26
DX: R10.9 Unspecified abdominal pain (principal); G89.29 Other chronic pain
CPT/HCPCS: 36415; 80053; 81001; 82150; 83690; 85025; 87086; 99283

== ENCOUNTER 2017-10-22 20:53 | Emergency (ER) ==
[2017-10-22 21:02] VITALS: BP 112/73; TEMP 98.4; BMI 24.1
--- NOTE | 2017-10-22 21:07 | ED.PDOC ---
General ED Provider: Dr. JULEE GONZALEZ-ER Chief Complaint: Abdominal Pain Stated Complaint: i had colonoscopy wtih bx yesterday--im hurting Time Seen by Physician: 21:05 Mode of Arrival: Walk-In Information Source: Patient Exam Limitations: No limitations Nursing and Triage Documentation Reviewed and Agree: Yes Does patient meet sepsis criteria?: No System Inflammatory Response Syndrome: Not Applicable Sepsis Protocol: For patient's 13 years and over: Temp is 96.8 and below OR 101 and greater Pulse >90 BPM Resp >20/minute Acutely Altered Mental Status Are patient's symptoms suggestive of a new infection, such as: -Pneumonia -Skin, Soft Tissue -Endocarditis -UTI -Bone, Joint Infection -Implantable Device -Acute Abdominal Infection -Wound Infection -Meningitis -Blood Stream Catheter Infection -Unknown GI Complaint Exam - Abdominal Pain Complaint/Exam Onset: Gradual Duration: 24 hrs Symptoms Are: Still present Timing: Constant Initial Severity: Mild Current Severity: Mild Location of Pain: Diffuse Character: Reports: Aching Aggravating: Reports: None Alleviating: Reports: None Associated Signs and Symptoms: Denies: Diaphoresis, Fever, Cough, Chest pain, Dizziness, Back pain, Constipation, Blood in stool, Dysuria, Urinary frequency, Decreased urine output, Decreased appetite, Discharge, Nausea, Vomiting, Diarrhea, Decreased activity Differential Diagnoses: Bowel Obstruction, Constipation, Pancreatitis Review of Systems - Review Of Systems Constitutional: Reports: No symptoms Eyes: Reports: No symptoms Ears, Nose, Mouth, Throat: Reports: No symptoms Respiratory: Reports: No symptoms Cardiac: Reports: No symptoms GI: Reports: Abdominal pain : Reports: No symptoms Musculoskeletal: Reports: No symptoms Skin: Reports: No symptoms Neurological: Reports: No symptoms Endocrine: Reports: No symptoms Hematologic/Lymphatic: Reports: No symptoms All Other Systems: Reviewed and Negative Past Medical History - Past Medical History Previously Healthy: Yes Endocrine: Reports: Hypothyroid, Dyslipidemia Cardiovascular: Reports: None Respiratory: Reports: None Hematological: Reports: None Gastrointestinal: Reports: GERD, Crohn's, Pancreatitis Genitourinary: Reports: Kidney stones Neuro/Psych: Reports: Depression Musculoskeletal: Reports: None Cancer: Reports: None - Surgical History General Surgical History: Reports: Other (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, INTESTINAL RESECTION) - Family History Family History: Reports: Unknown - Social History Smoking Status: Never smoker Hx Substance Use: No Alcohol Screening: None - Immunizations Tetanus Shot up to Date: Yes Influenza Vaccine within 12 Months: Yes Pneumococcal Vaccine up to Date: Yes Physical Exam - Physical Exam Appearance: Well-appearing, No pain distress, Well-nourished Pain Distress: Mild Eyes: DISHA, EOMI, Conjunctiva clear ENT: Ears normal, Nose normal, Oropharynx normal Neck: Supple Respiratory: Airway patent, Breath sounds clear, Breath sounds equal, Respirations nonlabored Cardiovascular: RRR, Pulses normal, No rub, No murmur GI/: Soft, Nontender, No masses, Bowel sounds normal, No Organomegaly Musculoskeletal: Normal strength, ROM intact, No edema, No calf tenderness Skin: Warm, Dry, Normal color Neurological: Sensation intact, Motor intact, Reflexes intact, Cranial nerves intact, Alert, Oriented Psychiatric: Affect appropriate, Mood appropriate Interpretation - Radiology Interpretation Radiology Interpretation By: Radiologist Radiology Results: Negative Exam Interpreted: CT Scan Critical Care Note - Critical Care Note Total Time (mins): 0 Course - Course Orders, Labs, Meds: Orders Category Date Time Status CT ABDOMEN/PELVIS WO CONTRAST Stat RADS 10/22/17 21:04 Completed Ephraim has chronic abd pain--his pain is no different than usual) Vital Signs: Temp Pulse Resp BP Pulse Ox 10/22/17 20:54 98.4 F 103 H 18 112/73 97 Departure - Departure Time of Disposition: 22:13 Disposition: HOME SELF-CARE Discharge Problem: Abdominal pain Instructions: Chronic Abdominal Pain (ED) Condition: Good Pt referred to PMD for follow-up: Yes IPMP verified?: No Additional Instructions: ultram 50mg q 6hrs prn pain #15--f/u with [facility] Allergies/Adverse Reactions: Allergies No Known Allergies Allergy (Verified 10/22/17 21:04) Home Medications: Ambulatory Orders Multivitamin [Multi-Vitamin Daily] 1 each PO DAILY 05/06/17 Potassium Chloride [K-Dur] 40 meq PO BID 30 Days #60 tab 10/05/17 Zolpidem Tartrate [Ambien] 10 mg PO BEDTIME 10/10/17 Prednisone 10 mg PO QID 10/22/17 Disposition Discussed With: Patient
--- NOTE | 2017-10-22 22:11 | CT ---
EXAM: CT scan abdomen pelvis without contrast HISTORY: Recent colonoscopy pain COMPARISON: CT scan abdomen pelvis 10/06/2017 FINDINGS: Contiguous axial images obtained through the abdomen pelvis without contrast utilizing 3-m m collimation. Sagittal and coronal reconstructions were imaged and reviewed.. The visualized lung bases are clear.. The gallbladder is contracted. There is the liver, pancreas, spleen and adrenal g lands have normal unenhanced CT appearance. Nonobstructive calculus lower pole left kidney. Cortica l calcifications seen upper pole right kidney. Small cortical cysts are noted bilaterally.. There h as been partial right hemicolectomy.. Fluid is noted throughout the colon.. There are prominent air and fluid filled loops of small bowel within the right abdomen. Scattered mesenteric lymph nodes are noted.. The bladder small volumed limiting evaluation. Mild perivesical stranding IMPRESSION: Patient is status post right hemicolectomy. There are prominent right-sided air and fluid - filled l oops of small bowel. Findings may be related to enteritis/diarrhea Stable scattered mesenteric lymph nodes. Stable mild perivesical stranding which may be related to cystitis.
== END 2017-10-22 22:15 | disposition home or self-care (01) ==
LOC: ED 20:53
DX: R10.9 Unspecified abdominal pain (principal); G89.29 Other chronic pain; Z98.890 Other specified postprocedural states
CPT/HCPCS: 99283

== ENCOUNTER 2017-10-28 16:37 | Outpatient (CLI) | END 2017-10-28 16:38 | disposition home or self-care (01) | LOC: AMBL 16:37 | PROVIDERS: ATTEND Internal Medicine Geriatric Medicine | DX: R10.9 Unspecified abdominal pain (principal); R00.0 Tachycardia, unspecified; K50.90 Crohn's disease, unspecified, without complications ==

== ENCOUNTER 2017-10-28 16:51 | Inpatient (IN) ==
--- NOTE | 2017-10-28 16:57 | ED.PDOC ---
General ED Provider: Dr. JULEE ACE Chief Complaint: Abnormal Labs Stated Complaint: Has Crohn's disease and beleive hi potassium level is low/ Mode of Arrival: Ambulance Information Source: Patient Exam Limitations: No limitations Nursing and Triage Documentation Reviewed and Agree: Yes Does patient meet sepsis criteria?: No System Inflammatory Response Syndrome: Not Applicable Sepsis Protocol: For patient's 13 years and over: Temp is 96.8 and below OR 101 and greater Pulse >90 BPM Resp >20/minute Acutely Altered Mental Status Are patient's symptoms suggestive of a new infection, such as: -Pneumonia -Skin, Soft Tissue -Endocarditis -UTI -Bone, Joint Infection -Implantable Device -Acute Abdominal Infection -Wound Infection -Meningitis -Blood Stream Catheter Infection -Unknown Past Medical History - Past Medical History Previously Healthy: Yes Endocrine: Reports: Hypothyroid, Dyslipidemia Cardiovascular: Reports: None Respiratory: Reports: None Hematological: Reports: None Gastrointestinal: Reports: GERD, Crohn's, Pancreatitis Genitourinary: Reports: Kidney stones Neuro/Psych: Reports: Depression Musculoskeletal: Reports: None Cancer: Reports: None - Surgical History General Surgical History: Reports: Other (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, INTESTINAL RESECTION) - Family History Family History: Reports: Unknown - Social History Smoking Status: Never smoker Hx Substance Use: No Alcohol Screening: None - Immunizations Influenza Vaccine within 12 Months: Yes Pneumococcal Vaccine up to Date: Yes Departure - Departure Allergies/Adverse Reactions: Allergies No Known Allergies Allergy (Verified 10/22/17 21:04) Home Medications: Ambulatory Orders Multivitamin [Multi-Vitamin Daily] 1 each PO DAILY 05/06/17 Potassium Chloride [K-Dur] 40 meq PO BID 30 Days #60 tab 10/05/17 Zolpidem Tartrate [Ambien] 10 mg PO BEDTIME 10/10/17 Prednisone 10 mg PO QID 10/22/17
[2017-10-28] MEDS ORDERED: MAGNESIUM SULFATE 2 GM in PREMIX 100 ML D5W 2 BAG IV STA (18:01)
[2017-10-28] MEDS ORDERED: SODIUM CHLORIDE 0.9%-KCL 40MEQ 1,000 ML IV STA (18:04)
[2017-10-28] MEDS ORDERED: MAGNESIUM SULFATE 200 ML IV ONE (18:19)
[2017-10-28] MEDS ORDERED: ZOFRAN 4 MG/2 ML IVP PRN (18:23)
[2017-10-28] MEDS ORDERED: SODIUM CHLORIDE 0.9%-KCL 20 MEQ 1,000 ML IV SCH (18:30)
[2017-10-28 20:02] VITALS: BMI 25.5
[2017-10-28] MEDS ORDERED: K-DUR PO STA (21:29)
[2017-10-28] MEDS ORDERED: POTASSIUM CHLORIDE 20 MEQ VIAL IV ONE ×3 (21:55→22:05)
[2017-10-28] MEDS: K-DUR PO SCH (22:06)
[2017-10-28] MEDS: LOVENOX SUBCUT SCH (22:08)
[2017-10-28] MEDS: SODIUM CHLORIDE 0.9%-KCL 40MEQ 1,000 ML IV SCH (22:10)
[2017-10-28] MEDS ORDERED: PREDNISONE PO SCH (22:30)
[2017-10-28] MEDS ORDERED: NON-FORMULARY MEDICATION (Zolpidem Tartrate [Ambien] 10 MG) PO SCH (22:30)
[2017-10-28] MEDS ORDERED: AMBIEN ONE (22:31)
[2017-10-28] MEDS ORDERED: PREDNISONE ONE (22:31)
[2017-10-29] MEDS: SODIUM CHLORIDE 0.9%-KCL 40MEQ 1,000 ML IV SCH ×2 (04:47→13:42)
[2017-10-29] MEDS ORDERED: K-DUR PO STA (08:45)
[2017-10-29] MEDS ORDERED: TORADOL IVP STA (08:48)
[2017-10-29] MEDS: K-DUR PO SCH ×2 (08:57→13:20)
[2017-10-29] MEDS: NORCO 5-325 PO PRN ×2 (08:57→15:31)
[2017-10-29] MEDS: PREDNISONE PO SCH ×2 (08:57→13:20)
[2017-10-29] MEDS: LOVENOX SUBCUT SCH (08:58)
[2017-10-29] MEDS ORDERED: MAG-OX PO SCH (09:00)
[2017-10-29] MEDS ORDERED: MULTIVITAMIN TABLET PO SCH (09:00)
--- NOTE | 2017-10-29 09:30 | PCM.PROG ---
Attending Provider: ATTENDING PROVIDER: [facility] This patient is seen with Yany Diaz, Nurse Practitioner. DATE OF SERVICE: 10/29/17 SUBJECTIVE: This 32 year old WHITE/ M was hospitalized 10/28/17. The patient is sitting in bed, alert. He is complaining of both abdominal pain and right knee pain related to Smith's cyst. Per patient has history of Crohn's. Recently had colonoscopy with Dr. Harden in [place] and states he had a lot of inflammation. He has been on Prednisone 10 mg q.i.d since colonoscopy. Per patient he has a history of ileostomy that has been reversed. He has been eating. Potassium level improved. Cramping in hands and feet brought him to the emergency room. The patient states he has chronic diarrhea. REVIEW OF SYSTEMS: CONSTITUTIONAL: Weakness. No night sweats. No malaise, lethargy. No fever or chills. HEENT: Eyes: No visual changes. No eye pain. No eye discharge. ENT: No runny nose. No epistaxis. No sinus pain. No odynophagia. No congestion. RESPIRATORY: No cough, no congestion. No hemoptysis. No shortness of breath. CARDIOVASCULAR: No angina symptoms. No CHF symptoms. No atypical chest pain for CAD. No palpitations. No orthopnea.. GASTROINTESTINAL: Diarrhea. Abdominal pain. No nausea or vomiting. No constipation. No hematemesis. No hematochezia. GENITOURINARY: No urgency. No frequency. No dysuria. No hematuria. No obstructive symptoms. No discharge. No pain. No significant abnormal bleeding. MUSCULOSKELETAL: Right knee pain. NEUROLOGICAL: Awake, alert, oriented to time, place and person. No headache. No neck pain. No syncope. No seizures. No dizziness. PSYCHIATRIC: Not anxious. No depression. No suicidal thoughts. No homicidal thoughts. SKIN: No rash. No lesions. No wounds. ENDOCRINE: No unexplained weight loss. No weight gain. HEMATOLOGIC/LYMPHATIC: No anemia. No purpura. No petechiae. No prolonged or excessive bleeding. No palpable lymph nodes. PHYSICAL EXAMINATION: GENERAL: The patient is awake, alert and oriented, lying/sitting in bed in no distress. VITAL SIGNS: Temperature 97.4 F, Pulse 77, Respiratory Rate 14, BP 126/76, Pulse Ox 99% HEENT: Head normocephalic, atraumatic. Eyes: Extraocular muscles are intact. Pupils are equal, round and reactive to light and accommodation. Ears: No lesions. Nose appeared normal. Throat: No exudate or erythema. NECK: Supple. No JVD, no carotid bruit. No lymphadenopathy or thyromegaly. LUNGS: Clear to auscultation. Percussion note normal. Chest symmetrical. HEART: S1, S2, no S3. No murmurs. No cyanosis or clubbing. No ascites. Pulses: Dorsalis pedis and posterior tibial pulses +1 to +2 both sides. ABDOMEN: Positive for mild tenderness, generalized, in the abdomen. Soft. Bowel sounds active. No CVA tenderness. No mass felt. EXTREMITIES: No edema. Full range of motion of all extremities, equal. NEUROLOGIC: No focal deficit. Cranial nerves II through XII are grossly intact. No headache, no double vision or headache. SKIN: Not dry. Intact. Turgor-normal. LYMPHATIC: No palpable lymph nodes/no lymphedema. MUSCULOSKELETAL: Normal joints with no swelling. Muscle tone is normal. LAB REVIEW: 10/29/17 04:30 10/29/17 04:30 10/29/17 04:30: Sodium 142, Potassium 3.1 L, Chloride 106, Carbon Dioxide 26, Anion Gap 13.1, BUN 15, Creatinine 0.86, Estimated GFR (MDRD) 102.00, BUN/ Creatinine Ratio 17.44, Glucose 151 H, Calcium 8.4, Total Bilirubin 0.3, AST 36 , ALT 102 H, Alkaline Phosphatase 82, Total Protein 6.0 L, Albumin 2.8 L, Globulin 3.2, Albumin/Globulin Ratio 0.88, TSH 0.403 10/29/17 04:30: WBC 16.13 H, RBC 3.32 L, Hgb 9.9 L, Hct 29.0 L, MCV 87.3, MCH 29.8, MCHC 34.1, RDW Coeff of Svitlana 14.6, Plt Count 240, Neutrophils % (Manual) 75.0, Lymphocytes % (Manual) 19.0, Monocytes % (Manual) 4.0, Metamyelocytes % 2.0, Anisocytosis Not present 10/29/17 04:30: Sodium 141, Potassium 3.1 L, Chloride 106, Carbon Dioxide 26, Anion Gap 12.1, BUN 15, Creatinine 0.82, Estimated GFR (MDRD) 108.00, BUN/ Creatinine Ratio 18.29, Glucose 154 H, Calcium 8.5 10/28/17 17:06: Sodium 142, Potassium 2.4 L*, Chloride 106, Carbon Dioxide 23, Anion Gap 15.4, BUN 15, Creatinine 1.04, Estimated GFR (MDRD) 82.00, BUN/ Creatinine Ratio 14.42, Glucose 198 H, Calcium 8.6, Magnesium 1.6 L 10/28/17 17:06: WBC 15.67 H, RBC 3.34 L, Hgb 10.0 L, Hct 28.7 L, MCV 85.9, MCH 29.9, MCHC 34.8, RDW Coeff of Svitlana 14.5, Plt Count 277, Immature Gran % (Auto) 8.7 H, Neut % (Auto) 67.5, Lymph % (Auto) 17.5, [place] % (Auto) 5.8, Eos % (Auto) 0.1, Baso % (Auto) 0.4, Immature Gran # (Auto) 1.4 H, Neut # (Auto) 10.6 H, Lymph # (Auto) 2.8, [place] # (Auto) 0.9, Eos # (Auto) 0.0, Baso # (Auto) 0.1 ASSESSMENT: 1. HYPOKALEMIA 2. HYPOMAGNESEMIA 3. CHRONIC DIARRHEA 4. RIGHT KNEE PAIN 5. CROHN'S DISEASE PLAN: 1. Continue IV fluids 2. CT scan of abdomen and pelvis with and without 3. [place] 5 mg p.o. b.i.d. p.r.n. 4. Amylase and Lipase 5. Free T4 Plan and coordination of the patient's care discussed in the presence of Glazing Machine Operator and nurse. CONDITION: Stable SCRIBED BY: RANGEL PASCAL Streetcar Conductor scribed while in presence of service performed by Dr. Mahajan/Yany Diaz APRN on 10/29/17 ([id number])
[2017-10-29 10:18] VITALS: BP 114/63; TEMP 98.3
[2017-10-29] MEDS ORDERED: AMBIEN PO SCH (21:00)
--- NOTE | 2017-11-01 13:14 | PN ---
DATE OF SERVICE: 10/28/17 SUBJECTIVE: The patient was seen and examined on 10/28/17. He was hospitalized with hypokalemia. The patient was discharged from [facility] emergency room after his potassium was noted to be 2.4 and given supplements. The patient ended up here with complaint of weakness. The patient's potassium has been 2.4, has been given IV and p.o. potassium. He will be given 20 mEq potassium four times on 10/28/17 and IV potassium supplements to be given. The patient is noncompliant. His magnesium was low which is being supplemented. He also has ulcerative colitis/Crohn's disease. In the past has been seen by Dr. Lerma and Dr. Salas. The patient has an appointment with operating room scheduler, [facility], likely Dr. Harden. TIME SPENT: More than 30 minutes. Plan and coordination of the patient's care discussed in the presence of nurse. AKILAH
--- NOTE | 2017-11-01 13:19 | PN ---
DATE OF SERVICE: 10/29/17 SUBJECTIVE: Mr. Maldonado was seen and examined with the nurse practitioner. The patient's condition has improved. He is sitting up in the bed. No distress. No abdominal pain. No chest pain. No PND, no orthopnea. Feeling better. Potassium is 3.1. REVIEW OF SYSTEMS: CONSTITUTIONAL: No night sweats. No fatigue, malaise, lethargy. No fever or chills. HEENT: Eyes: No visual changes. No eye pain. No eye discharge. ENT: No runny nose. No epistaxis. No sinus pain. No sore throat. No odynophagia. No congestion. RESPIRATORY: No cough, no congestion. No hemoptysis. No shortness of breath. CARDIOVASCULAR: No angina symptoms. No CHF symptoms. No atypical chest pain for CAD. No palpitations. No orthopnea. GASTROINTESTINAL: No abdominal pain. No nausea or vomiting. No diarrhea or constipation. No hematemesis. No hematochezia. GENITOURINARY: No urgency. No frequency. No dysuria. No hematuria. No obstructive symptoms. No discharge. No pain. No significant abnormal bleeding. MUSCULOSKELETAL: No musculoskeletal pain; no joint swelling. NEUROLOGICAL: No headache. No neck pain. No syncope. No seizures. No dizziness. PSYCHIATRIC: Not anxious. No depression. No suicidal thoughts. No homicidal thoughts. SKIN: No rash. No lesions. No wounds. ENDOCRINE: No unexplained weight loss. No weight gain. HEMATOLOGIC/LYMPHATIC: No anemia. No purpura. No petechiae. No prolonged or excessive bleeding. No palpable lymph nodes. PHYSICAL EXAMINATION: HEENT: Head normocephalic, atraumatic. Eyes: Extraocular muscles are intact. Pupils are equal, round and reactive to light and accommodation. Ears: No lesions. Nose appeared normal. Throat: No exudate or erythema. NECK: Supple. No JVD, no carotid bruit. No lymphadenopathy or thyromegaly. LUNGS: Clear to auscultation. Percussion note normal. Chest symmetrical. HEART: S1, S2, no S3. No murmurs. No cyanosis or clubbing. No ascites. Pulses: Dorsalis pedis and posterior tibial pulses +1 to +2 both sides. ABDOMEN: Soft. Nontender. Bowel sounds active. No CVA tenderness. No mass felt. EXTREMITIES: No edema. Full range of motion of all extremities, equal. NEUROLOGIC: No focal deficit. Cranial nerves II through XII are grossly intact. No headache, no double vision or headache. SKIN: Not dry. Intact. Turgor - normal. LYMPHATIC: No palpable lymph nodes/no lymphedema. MUSCULOSKELETAL: Normal joints with no swelling. Muscle tone is normal. PLAN: Will check the potassium again at 1:30. The potassium is more than 3.3 or 3.2. Will discharge the patient home to be followed by [facility]. Otherwise, conditions are stable. The patient had no arrhythmias. Telemetry shows sinus rhythm. Also get an EKG if not done. CONDITION: Stable TIME SPENT: More than 30 minutes. Plan and coordination of the patient's care discussed in the presence of nurse. AKILAH
--- NOTE | 2017-11-01 13:44 | HP ---
DATE OF SERVICE: 10/29/17 HISTORY OF PRESENT ILLNESS: This 32-year-old white male who has a history of Crohn's disease had an ileostomy that was reversed presents with cramping in his hands and legs. Potassium on admission 2.4. He was given 40 mEq of potassium in the emergency room with 20 mEq in his IV fluids at 100 cc/hr with an additional 20 mEq rider. He was admitted on 10/28. PAST MEDICAL HISTORY: Crohn's disease Reversed ileostomy Smith's cyst behind right knee History of hypokalemia Insomnia PAST SURGICAL HISTORY: Colon resection with ostomy, reversal of ostomy in June 2012 Left testicle removed during infancy REVIEW OF SYSTEMS: CONSTITUTIONAL: Positive for fatigue, chills. No night sweats. No malaise, lethargy. No fever. HEENT: Eyes: No visual changes. No eye pain. No eye discharge. ENT: No runny nose. No epistaxis. No sinus pain. No sore throat. No odynophagia. No ear pain. No congestion. RESPIRATORY: No cough, no congestion. No hemoptysis. No shortness of breath. CARDIOVASCULAR: No angina symptoms. No CHF symptoms. No atypical chest pain for CAD. No palpitations. No PND. No orthopnea. GASTROINTESTINAL: Abdominal cramping, nausea. No vomiting. No constipation. No hematemesis. No hematochezia. GENITOURINARY: No urgency. No frequency. No dysuria. No hematuria. No obstructive symptoms. No discharge. No pain. No significant abnormal bleeding. MUSCULOSKELETAL: No musculoskeletal pain. No joint swelling. No arthritis. NEUROLOGICAL: Headache. No neck pain. No syncope. No seizures. No dizziness. PSYCHIATRIC: Not anxious. No depression. No suicidal thoughts. No homicidal thoughts. SKIN: No rash. No lesions. No wounds. ENDOCRINE: No unexplained weight loss. No weight gain. HEMATOLOGIC/LYMPHATIC: No anemia. No purpura. No petechiae. No prolonged or excessive bleeding. No palpable lymph nodes. PERSONAL/FAMILY/SOCIAL HISTORY: The patient is a nonsmoker. He is single. Denies any alcohol or ilicit drug use. MEDICATIONS: (HOME) Multivitamin one daily Potassium (K-Dur)40 mEq p.o. b.i.d. Ambien 10 mg p.o. bedtime Prednisone 10 mg p.o. q.i.d. ALLERGIES: NKDA PHYSICAL EXAMINATION: HEENT: Head normocephalic, atraumatic. Eyes: Extraocular muscles are intact. Pupils are equal, round and reactive to light and accommodation. Ears: No lesions. Nose appeared normal. Throat: No exudate or erythema. NECK: Supple. No JVD, no carotid bruit. No lymphadenopathy or thyromegaly. LUNGS: Clear to auscultation. Percussion note normal. Chest symmetrical. HEART: S1, S2, no S3. No murmurs. No cyanosis or clubbing. No ascites. Pulses: Dorsalis pedis and posterior tibial pulses +1 to +2 bilaterally. ABDOMEN: Very mild tenderness in the abdomen. Soft. Bowel sounds active. No CVA tenderness. No mass felt. EXTREMITIES: Complains of pain behind the right knee. There is no visible swelling. No edema. Full range of motion of all extremities, equal. NEUROLOGIC: No focal deficit. Cranial nerves II through XII are grossly intact. No headache, no double vision or headache. SKIN: Not dry. Intact. Turgor - normal. LYMPHATIC: No palpable lymph nodes/no lymphedema. MUSCULOSKELETAL: Normal joints with no swelling. Muscle tone is normal. LABS: White count 16.13, hemoglobin 9.9, hematocrit 29. Sodium 141, potassium 3.1, BUN 15, creatinine 0.82, glucose 154. ASSESSMENT: 1. ACUTE HYPOKALEMIA 2. ACUTE HYPOMAGNESEMIA 3. CHRONIC DIARRHEA 4. CROHN'S DISEASE PLAN: 1. We will admit the patient for acute hypokalemia. 2. Routine telemetry orders. 3. CBC, CMP today and then again at 1:30. 4. He is to continue with the IV fluids at 100 cc/hr with 40 mEq of potassium along with 20 mEq p.o. q.i.d. 5. He is to receive 400 mg p.o. of magnesium. 6. Continue Prednisone 10 mg p.o. q.i.d. 7. Will repeat potassium level at 1:30. He has had no EKG changes. 8. Wilson diet. 9. Hardy 5/325 mg b.i.d. for pain. TIME SPENT: More than 70 minutes. [facility]
--- NOTE | 2017-11-01 14:01 | DS ---
DATE OF SERVICE: 10/29/17 FINAL DIAGNOSIS: 1. ACUTE HYPOKALEMIA, RESOLVED 2. ACUTE HYPOMAGNESEMIA, RESOLVED 3. CHRONIC DIARRHEA 4. CROHN'S DISEASE DISCHARGE INSTRUCTIONS: Followup appointment at the [facility] on 11/02/17 at 2 p.m. Keep all appointments with your bank cashier, Dr. Cory Harden. MEDICATIONS AT DISCHARGE: Multivitamin one each p.o. daily K-Dur 40 mEq p.o. b.i.d. 30 days Ambien 10 mg p.o. bedtime Prednisone 10 mg p.o. q.i.d. NEW PRESCRIPTIONS: K-Dur 20 mEq take one tablet by mouth twice daily for 7 days MEDICATION CHANGE: Note the reduction in your K-Dur (potassium chloride) to 20 mEq twice daily for 7 days. DIET INSTRUCTIONS: Soft diet. Advance as tolerated. ACTIVITY: Get plenty of rest at home. Gradually increase your activity according to your toleration. SMOKING: NA DISEASE SPECIFIC EDUCATION: Medications Followup appointment Activity Diet HOSPITAL COURSE: This is a 32-year-old white female with history of Crohn's disease who presented to the emergency room with hand and leg cramping. His potassium was 2.4 on admission. He had recently went to the emergency room at [facility] complaining of pain and diarrhea with potassium of 2.4 and was discharged with prescription for 40 mEq of potassium to take b.i.d. We administered 40 mEq of potassium IV along with IV fluids at 125 cc/hr with 40 mEq and a 20 mEq rider. This has been over the past 12 to 18 hours. Today at 1:30 his potassium was up to 3.8. He has a history of an ileostomy which has been reversed so his diarrhea is chronic. He reports no change in his diarrhea. He does have a potassium prescription which he is supposed to take daily. I am unsure if he has failed to take this. He denies that however for his potassium to drop so low. His amylase and lipase were normal. He was already on Prednisone [address] Harden his bank cashier in [place]. He had a colonoscopy approximately 2 months ago however we have no report. He will be discharged with a prescription for potassium 20 mEq to take p.o. b.i.d. for the next 7 days. He is to followup with Dr. Cerda on Wednesday at the [facility]. He is in stable condition. He has been eating well. He has been up and about walking around. His vital signs are normal. Again, his potassium is up to 3.8. TIME SPENT: More than 60 minutes. AKILAH
== END 2017-10-29 16:47 | disposition home or self-care (01) | DRG 641 ==
LOC: ED 16:51 → MEDSURG B 18:16
PROVIDERS: ADMIT Internal Medicine; ATTEND Internal Medicine
DX: E87.6 Hypokalemia (principal); K50.90 Crohn's disease, unspecified, without complications; E83.42 Hypomagnesemia; R19.7 Diarrhea, unspecified; M25.569 Pain in unspecified knee
CPT/HCPCS: 36415; 80048; 80053; 82150; 82962; 83690; 83735; 84132; 84436; 84439; 84443; 85007; 85025; 87081; 93005; 93010; 96365; 99284

== ENCOUNTER 2017-10-30 18:39 | Emergency (ER) ==
[2017-10-30 18:46] VITALS: BP 126/80; TEMP 97.8; BMI 24.8
--- NOTE | 2017-10-30 20:07 | ED.PDOC ---
General ED Provider: Dr. URMILA TRAMMELL Chief Complaint: Abdominal Pain Stated Complaint: patient was discharged from hospital yesterday. was seen and admitted for low potassium. patient states they told him to come back if he had any problems. states he has n't felt well all day. sttes pain is the same as he always has and nothing is different. Time Seen by Physician: 19:49 Mode of Arrival: Walk-In Information Source: Patient Exam Limitations: No limitations Primary Care Provider: TRANG LINARES Seen Within Last 72 Hours for Same Complaint By: In-Patient Facility Nursing and Triage Documentation Reviewed and Agree: Yes Does patient meet sepsis criteria?: No System Inflammatory Response Syndrome: Not Applicable Sepsis Protocol: For patient's 13 years and over: Temp is 96.8 and below OR 101 and greater Pulse >90 BPM Resp >20/minute Acutely Altered Mental Status Are patient's symptoms suggestive of a new infection, such as: -Pneumonia -Skin, Soft Tissue -Endocarditis -UTI -Bone, Joint Infection -Implantable Device -Acute Abdominal Infection -Wound Infection -Meningitis -Blood Stream Catheter Infection -Unknown Review of Systems - Review Of Systems Constitutional: Reports: No symptoms Eyes: Reports: No symptoms Ears, Nose, Mouth, Throat: Reports: No symptoms Respiratory: Reports: No symptoms Cardiac: Reports: No symptoms GI: Reports: No symptoms : Reports: Pain Musculoskeletal: Reports: No symptoms Skin: Reports: No symptoms Neurological: Reports: Anxiety Endocrine: Reports: No symptoms Hematologic/Lymphatic: Reports: No symptoms All Other Systems: Reviewed and Negative Past Medical History - Past Medical History Previously Healthy: Yes Endocrine: Reports: Hypothyroid, Dyslipidemia Cardiovascular: Reports: None Respiratory: Reports: None Hematological: Reports: None Gastrointestinal: Reports: GERD, Crohn's, Pancreatitis Genitourinary: Reports: Kidney stones Neuro/Psych: Reports: Depression Musculoskeletal: Reports: None Cancer: Reports: None Other Pertinent Past Medical History: Hypokalemia - Surgical History General Surgical History: Reports: Other (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, INTESTINAL RESECTION) - Family History Family History: Reports: Unknown - Social History Smoking Status: Never smoker Hx Substance Use: No Alcohol Screening: None - Immunizations Influenza Vaccine within 12 Months: Yes Pneumococcal Vaccine up to Date: Yes Physical Exam - Physical Exam Appearance: Ill-appearing Ill-appearing: Mild Pain Distress: Moderate Eyes: DISHA, EOMI, Conjunctiva clear ENT: Ears normal, Nose normal, Oropharynx normal Respiratory: Airway patent, Breath sounds clear, Breath sounds equal, Respirations nonlabored Cardiovascular: RRR, Pulses normal, No rub, No murmur GI/: Soft, No masses, Bowel sounds normal, No Organomegaly, Tender Musculoskeletal: Normal strength, ROM intact, No edema, No calf tenderness Skin: Warm, Dry, Normal color Neurological: Sensation intact, Motor intact, Reflexes intact, Cranial nerves intact, Alert, Oriented Psychiatric: Anxious Critical Care Note - Critical Care Note Total Time (mins): 0 Course - Course Hematology/Chemistry: 10/30/17 20:00 10/30/17 20:00 Orders, Labs, Meds: Lab Review 10/30/17 10/30/17 20:00 20:00 WBC 16.43 H RBC 3.50 L Hgb 10.5 L Hct 31.3 L MCV 89.4 MCH 30.0 MCHC 33.5 RDW Coeff of Svitlana 15.2 H Plt Count 235 Immature Gran % (Auto) 9.0 H Neut % (Auto) 69.1 Lymph % (Auto) 14.4 [place] % (Auto) 7.1 Eos % (Auto) 0.1 Baso % (Auto) 0.3 Immature Gran # (Auto) 1.5 H Neut # (Auto) 11.4 H Lymph # (Auto) 2.4 [place] # (Auto) 1.2 Eos # (Auto) 0.0 Baso # (Auto) 0.1 Sodium 139 Potassium 4.4 Chloride 109 H Carbon Dioxide 20 L Anion Gap 14.4 BUN 17 Creatinine 0.87 Estimated GFR (MDRD) 100.00 BUN/Creatinine Ratio 19.54 Glucose 123 H Calcium 9.0 Total Bilirubin 0.3 AST 45 H ALT 136 H D Alkaline Phosphatase 89 Total Protein 6.7 Albumin 3.3 L Globulin 3.4 Albumin/Globulin Ratio 0.97 Amylase 80 Lipase 28 Orders Category Date Time Status AMYLASE Stat LAB 10/30/17 20:00 Completed CBC W/ AUTO DIFF Stat LAB 10/30/17 20:00 Completed COMPREHENSIVE METABOLIC PANEL Stat LAB 10/30/17 20:00 Completed LIPASE Stat LAB 10/30/17 20:00 Completed Vital Signs: Temp Pulse Resp BP Pulse Ox 10/30/17 18:43 97.8 F 112 H 16 126/80 96 Departure - Departure Time of Disposition: 20:50 Disposition: HOME SELF-CARE Discharge Problem: Abdominal pain Instructions: Abdominal Pain (ED) Condition: Stable Pt referred to PMD for follow-up: Yes IPMP verified?: No Additional Instructions: Continue home steroids Follow up with PCP in 3-5 days Allergies/Adverse Reactions: Allergies No Known Allergies Allergy (Verified 10/28/17 17:11) Home Medications: Ambulatory Orders Multivitamin [Multi-Vitamin Daily] 1 each PO DAILY 05/06/17 Potassium Chloride [K-Dur] 40 meq PO BID 30 Days #60 tab 10/05/17 Zolpidem Tartrate [Ambien] 10 mg PO BEDTIME 10/10/17 Prednisone 10 mg PO QID 10/22/17 Transfer Form Completed: No Disposition Discussed With: Patient
== END 2017-10-30 20:56 | disposition home or self-care (01) ==
LOC: ED 18:39
DX: R10.9 Unspecified abdominal pain (principal); E87.6 Hypokalemia; Z87.19 Personal history of other diseases of the digestive system
CPT/HCPCS: 36415; 80053; 82150; 83690; 85025; 99283

== ENCOUNTER 2017-10-31 09:43 | Emergency (ER) ==
[2017-10-31 09:49] VITALS: BP 128/81; TEMP 98.9; BMI 24.6
--- NOTE | 2017-10-31 10:23 | ED.PDOC ---
General ED Provider: Dr. JULEE ACE Chief Complaint: Abdominal Pain Stated Complaint: Abdominal pain. Complains of has lower abd pain---present past week--has had admission for low potassium this week--Lab not completed last night-no other changes--potassium level had been low-feels weak. [ End ] Time Seen by Physician: 10:08 Mode of Arrival: Walk-In Information Source: Patient Exam Limitations: No limitations Seen Within Last 72 Hours for Same Complaint By: ED Nursing and Triage Documentation Reviewed and Agree: Yes Does patient meet sepsis criteria?: No If yes, has appropriate treatment been initiated?: Yes System Inflammatory Response Syndrome: Not Applicable Sepsis Protocol: For patient's 13 years and over: Temp is 96.8 and below OR 101 and greater Pulse >90 BPM Resp >20/minute Acutely Altered Mental Status Are patient's symptoms suggestive of a new infection, such as: -Pneumonia -Skin, Soft Tissue -Endocarditis -UTI -Bone, Joint Infection -Implantable Device -Acute Abdominal Infection -Wound Infection -Meningitis -Blood Stream Catheter Infection -Unknown GI Complaint Exam - Abdominal Pain Complaint/Exam Onset: Sudden Symptoms Are: Still present Timing: Intermittent Initial Severity: Severe Current Severity: Moderate Location of Pain: Diffuse Radiates To: Reports: Flank Character: Reports: Dull, Aching, Cramping Aggravating: Reports: Position, Eating Alleviating: Reports: None Related History: Reports: Similar episode AAA Risk Factors: Reports: None Cardiac Risk Factors: Reports: None Testicular Torsion Risk Factors: Reports: None Surgical Obstruction Risk Factors: Reports: None Related Surgical History: Reports: Cholecystectomy Abdominal Findings: Present: Abdominal distention, [place] tender, CVA Tenderness Differential Diagnoses: Irritable Bowel Syndrome, Renal Colic, Other (Inflam bowel disease) Review of Systems - Review Of Systems Constitutional: Reports: No symptoms Eyes: Reports: No symptoms Ears, Nose, Mouth, Throat: Reports: No symptoms Respiratory: Reports: No symptoms Cardiac: Reports: No symptoms GI: Reports: No symptoms, Abdominal pain, Diarrhea, Nausea : Reports: No symptoms Musculoskeletal: Reports: No symptoms Skin: Reports: No symptoms Neurological: Reports: No symptoms Endocrine: Reports: No symptoms Hematologic/Lymphatic: Reports: No symptoms All Other Systems: Reviewed and Negative Past Medical History - Past Medical History Previously Healthy: Yes Endocrine: Reports: Hypothyroid, Dyslipidemia Cardiovascular: Reports: None Respiratory: Reports: None Hematological: Reports: None Gastrointestinal: Reports: GERD, Crohn's, Pancreatitis Genitourinary: Reports: Kidney stones Neuro/Psych: Reports: Depression Musculoskeletal: Reports: None Cancer: Reports: None Other Pertinent Past Medical History: Hypokalemia - Surgical History General Surgical History: Reports: Other (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, INTESTINAL RESECTION) - Family History Family History: Reports: Unknown - Social History Smoking Status: Never smoker Hx Substance Use: No Alcohol Screening: None - Immunizations Influenza Vaccine within 12 Months: Yes Pneumococcal Vaccine up to Date: Yes Physical Exam - Physical Exam Appearance: Well-appearing, No pain distress, Well-nourished Eyes: DISHA, EOMI, Conjunctiva clear ENT: Ears normal, Nose normal, Oropharynx normal Respiratory: Airway patent, Breath sounds clear, Breath sounds equal, Respirations nonlabored Cardiovascular: RRR, Pulses normal, No rub, No murmur GI/: Soft, No masses, No Organomegaly, Tender, Bowel sounds hypoactive Musculoskeletal: Normal strength, ROM intact, No edema, No calf tenderness Skin: Warm, Dry, Normal color Neurological: Sensation intact, Motor intact, Reflexes intact, Cranial nerves intact, Alert, Oriented Psychiatric: Affect appropriate, Mood appropriate, Anxious Critical Care Note - Critical Care Note Total Time (mins): 0 Course - Course Vital Signs: Temp Pulse Resp BP Pulse Ox 10/31/17 09:44 98.9 F 108 H 16 128/81 98 Departure - Departure Time of Disposition: 10:23 Disposition: HOME SELF-CARE Discharge Problem: Crohn's colitis, Abdominal cramping, Abdominal pain despite therapy for Crohn' s disease Instructions: Crohn Disease (ED), Acute Abdominal Pain (ED) Condition: Fair Pt referred to PMD for follow-up: Yes (1 week) IPMP verified?: Yes Additional Instructions: Remain on meds as directed Take Tramadol 50 mg every 4-6 hrs as needed for abdominal pain associated with crohns colitis May take Tylenol 1-2 tabs every 6 hrs for additional pain control Benty 10 mg take 1-2 every 6 hours as needed for cramping(Hold Potassium for 2- 4 hours if taking Bentyl) Follow up PCP Prescriptions: Dicyclomine HCl [Bentyl] 1 - 2 mg PO QID PRN #40 capsule PRN Reason: abdomial cramping Tramadol HCl 50 mg PO Q4-6H PRN #20 tablet PRN Reason: Abdominal pain Allergies/Adverse Reactions: Allergies No Known Allergies Allergy (Verified 11/21/17 19:22) Home Medications: Ambulatory Orders Potassium Chloride [K-Dur] 40 meq PO BID 30 Days #60 tab 10/05/17 Zolpidem Tartrate [Ambien] 10 mg PO BEDTIME 10/10/17 Prednisone 10 mg PO DAILY 10/22/17 Dicyclomine HCl [Bentyl] 1 - 2 mg PO QID PRN #40 capsule 10/31/17 Tramadol HCl 50 mg PO Q4-6H PRN #20 tablet 10/31/17 Ondansetron HCl [Zofran Tab] 8 mg PO Q8H PRN 11/06/17 Cyanocobalamin (Vitamin B-12) [Vitamin B12] 5,000 mcg PO DAILY 11/21/17 Ferrous Sulfate [Slow Fe] 0.5 tab PO DAILY 11/21/17 Disposition Discussed With: Patient
== END 2017-10-31 10:51 | disposition home or self-care (01) ==
LOC: ED 09:43
DX: K50.90 Crohn's disease, unspecified, without complications (principal); R10.9 Unspecified abdominal pain
CPT/HCPCS: 99282

== ENCOUNTER 2017-11-06 20:22 | Emergency (ER) ==
[2017-11-06 20:29] VITALS: BP 127/81; TEMP 96.6; BMI 25.1
--- NOTE | 2017-11-06 21:10 | ED.PDOC ---
General ED Provider: Dr. SANTIAGO DANIELS Chief Complaint: Abdominal Pain Stated Complaint: Came for the abdominla pain, says he ran out of the Tramadol and Bentyl. needs refills. no vomiting at this time Time Seen by Physician: 21:08 Mode of Arrival: Walk-In Information Source: Patient Primary Care Provider: TRANG LINARES Nursing and Triage Documentation Reviewed and Agree: Yes Does patient meet sepsis criteria?: No If yes, has appropriate treatment been initiated?: No System Inflammatory Response Syndrome: Not Applicable Sepsis Protocol: For patient's 13 years and over: Temp is 96.8 and below OR 101 and greater Pulse >90 BPM Resp >20/minute Acutely Altered Mental Status Are patient's symptoms suggestive of a new infection, such as: -Pneumonia -Skin, Soft Tissue -Endocarditis -UTI -Bone, Joint Infection -Implantable Device -Acute Abdominal Infection -Wound Infection -Meningitis -Blood Stream Catheter Infection -Unknown GI Complaint Exam - Abdominal Pain Complaint/Exam Onset: Gradual Symptoms Are: Still present Initial Severity: Mild Current Severity: Mild Location of Pain: Diffuse Character: Reports: Dull, Aching Aggravating: Reports: Food Alleviating: Reports: None Associated Signs and Symptoms: Denies: Diaphoresis, Fever, Cough, Chest pain, Dizziness, Back pain, Constipation, Blood in stool, Dysuria, Urinary frequency, Decreased urine output, Decreased appetite, Discharge, Nausea, Vomiting, Diarrhea, Decreased activity Related History: Reports: Similar episode AAA Risk Factors: Reports: None Cardiac Risk Factors: Reports: None Testicular Torsion Risk Factors: Reports: None Surgical Obstruction Risk Factors: Reports: None Related Surgical History: Reports: None Abdominal Findings: Present: None Differential Diagnoses: Irritable Bowel Syndrome Review of Systems - Review Of Systems Constitutional: Reports: No symptoms Eyes: Reports: No symptoms Ears, Nose, Mouth, Throat: Reports: No symptoms Respiratory: Reports: No symptoms Cardiac: Reports: No symptoms GI: Reports: Abdominal pain : Reports: No symptoms Musculoskeletal: Reports: No symptoms Skin: Reports: No symptoms Neurological: Reports: No symptoms Endocrine: Reports: No symptoms Hematologic/Lymphatic: Reports: No symptoms All Other Systems: Reviewed and Negative Past Medical History - Past Medical History Previously Healthy: Yes Endocrine: Reports: Hypothyroid, Dyslipidemia Cardiovascular: Reports: None Respiratory: Reports: None Hematological: Reports: None Gastrointestinal: Reports: GERD, Crohn's, Pancreatitis Genitourinary: Reports: Kidney stones Neuro/Psych: Reports: Depression Musculoskeletal: Reports: None Cancer: Reports: None Other Pertinent Past Medical History: Hypokalemia - Surgical History General Surgical History: Reports: Other (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, INTESTINAL RESECTION) - Family History Family History: Reports: Unknown - Social History Smoking Status: Never smoker Hx Substance Use: No Alcohol Screening: None - Immunizations Tetanus Shot up to Date: Yes Influenza Vaccine within 12 Months: Yes Pneumococcal Vaccine up to Date: Yes Physical Exam - Physical Exam Appearance: Well-appearing, No pain distress, Well-nourished Eyes: DISHA, EOMI, Conjunctiva clear ENT: Ears normal, Nose normal, Oropharynx normal Respiratory: Airway patent, Breath sounds clear, Breath sounds equal, Respirations nonlabored Cardiovascular: RRR, Pulses normal, No rub, No murmur GI/: Soft, No masses, Bowel sounds normal, No Organomegaly, Tender Musculoskeletal: Normal strength, ROM intact, No edema, No calf tenderness Skin: Warm, Dry, Normal color Neurological: Sensation intact, Motor intact, Reflexes intact, Cranial nerves intact, Alert, Oriented Psychiatric: Affect appropriate, Mood appropriate Critical Care Note - Critical Care Note Total Time (mins): 30 Course - Course Vital Signs: Temp Pulse Resp BP Pulse Ox 11/06/17 20:22 96.6 F L 135 H 20 127/81 96 Departure - Departure Time of Disposition: 21:15 Disposition: HOME SELF-CARE Discharge Problem: Abdominal pain Instructions: Irritable Bowel Syndrome (ED) Condition: Stable Pt referred to PMD for follow-up: Yes IPMP verified?: No Additional Instructions: need f/u with GI Prescriptions: Dicyclomine HCl [Bentyl] 10 mg PO QID #40 capsule Tramadol HCl 50 mg PO BID #14 tablet Allergies/Adverse Reactions: Allergies No Known Allergies Allergy (Verified 10/31/17 09:51) Home Medications: Ambulatory Orders Multivitamin [Multi-Vitamin Daily] 1 each PO DAILY 05/06/17 Potassium Chloride [K-Dur] 40 meq PO BID 30 Days #60 tab 10/05/17 Zolpidem Tartrate [Ambien] 10 mg PO BEDTIME 10/10/17 Prednisone 30 mg PO DAILY 10/22/17 Dicyclomine HCl [Bentyl] 1 - 2 mg PO QID PRN #40 capsule 08/19/18 Tramadol HCl 50 mg PO Q4-6H PRN #20 tablet 10/31/17 Dicyclomine HCl [Bentyl] 10 mg PO QID #40 capsule 11/06/17 Ondansetron HCl [Zofran Tab] 8 mg PO Q8H PRN 11/06/17 Tramadol HCl 50 mg PO BID #14 tablet 11/06/17 Disposition Discussed With: Patient
[2017-11-06] MEDS ORDERED: ULTRAM PO STA (21:11)
== END 2017-11-06 21:24 | disposition home or self-care (01) ==
LOC: ED 20:22
DX: R10.9 Unspecified abdominal pain (principal)
CPT/HCPCS: 99282

== ENCOUNTER 2017-11-21 19:14 | Emergency (ER) ==
[2017-11-21 19:21] VITALS: BP 121/76; TEMP 97.5; BMI 24.9
--- NOTE | 2017-11-21 19:35 | ED.PDOC ---
General ED Provider: Dr. URMILA TRAMMELL Chief Complaint: Abdominal Pain Stated Complaint: Patient is a 32 year old male who has a history of chronic abdominal pain who comes to the Er with Complaints of Right upper quadrant abdominal pain that started 3- 4 days ago. He states that the pain got worse over the past 24 hours. He states that he has associated nausea but no emesis. States he has run out of his Ultram and Bentyl. Also states that he has not followed up the clinic. Has been seen about once a week for the last several weeks in the ER for medication refills. Has been established with Dr. Leary who will be writing an order of Remacaide Time Seen by Physician: 20:00 Mode of Arrival: Walk-In Information Source: Patient Nursing and Triage Documentation Reviewed and Agree: Yes Does patient meet sepsis criteria?: No System Inflammatory Response Syndrome: Pulse >90 BPM Sepsis Protocol: For patient's 13 years and over: Temp is 96.8 and below OR 101 and greater Pulse >90 BPM Resp >20/minute Acutely Altered Mental Status Are patient's symptoms suggestive of a new infection, such as: -Pneumonia -Skin, Soft Tissue -Endocarditis -UTI -Bone, Joint Infection -Implantable Device -Acute Abdominal Infection -Wound Infection -Meningitis -Blood Stream Catheter Infection -Unknown Review of Systems - Review Of Systems Constitutional: Reports: No symptoms Eyes: Reports: No symptoms Ears, Nose, Mouth, Throat: Reports: No symptoms Respiratory: Reports: No symptoms Cardiac: Reports: No symptoms GI: Reports: Abdominal pain, Nausea. Denies: Vomiting : Reports: No symptoms Musculoskeletal: Reports: No symptoms Skin: Reports: No symptoms Neurological: Reports: No symptoms Endocrine: Reports: No symptoms Hematologic/Lymphatic: Reports: No symptoms All Other Systems: Reviewed and Negative Past Medical History - Past Medical History Previously Healthy: Yes Endocrine: Reports: Hypothyroid, Dyslipidemia Cardiovascular: Reports: None Respiratory: Reports: None Hematological: Reports: None Gastrointestinal: Reports: GERD, Crohn's, Pancreatitis Genitourinary: Reports: Kidney stones Neuro/Psych: Reports: Depression Musculoskeletal: Reports: None Cancer: Reports: None Other Pertinent Past Medical History: Hypokalemia - Surgical History General Surgical History: Reports: Other (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, INTESTINAL RESECTION) - Family History Family History: Reports: Unknown - Social History Smoking Status: Never smoker Hx Substance Use: No Alcohol Screening: None - Immunizations Tetanus Shot up to Date: Yes Influenza Vaccine within 12 Months: Yes Pneumococcal Vaccine up to Date: Yes Physical Exam - Physical Exam Appearance: Ill-appearing Ill-appearing: Mild Pain Distress: Mild Respiratory: Airway patent, Breath sounds clear, Breath sounds equal, Respirations nonlabored Cardiovascular: RRR, Pulses normal, No rub, No murmur GI/: Soft, No masses, Bowel sounds normal, No Organomegaly, Tender (mild ) Musculoskeletal: Normal strength, ROM intact, No edema, No calf tenderness Skin: Warm, Dry, Normal color Neurological: Alert, Oriented Psychiatric: Affect appropriate, Mood appropriate Critical Care Note - Critical Care Note Total Time (mins): 0 Comments: Labs reviewed no significant changes Course - Course Hematology/Chemistry: 11/21/17 20:15 11/21/17 20:15 Orders, Labs, Meds: Lab Review 11/21/17 11/21/17 11/21/17 20:15 20:15 20:17 WBC 7.49 RBC 3.34 L Hgb 10.1 L Hct 29.7 L MCV 88.9 MCH 30.2 MCHC 34.0 RDW Coeff of Svitlana 13.7 Plt Count 194 Immature Gran % (Auto) 1.3 Neut % (Auto) 52.5 Lymph % (Auto) 35.1 Dane % (Auto) 10.0 Eos % (Auto) 0.8 Baso % (Auto) 0.3 Immature Gran # (Auto) 0.1 Neut # (Auto) 3.9 Lymph # (Auto) 2.6 Dane # (Auto) 0.8 Eos # (Auto) 0.1 Baso # (Auto) 0.0 Sodium 139 Potassium 3.4 L Chloride 105 Carbon Dioxide 29 Anion Gap 8.4 BUN 20 Creatinine 1.13 H Estimated GFR (MDRD) 74.00 BUN/Creatinine Ratio 17.69 Glucose 110 H Calcium 9.1 Total Bilirubin 0.1 L AST 28 ALT 43 Alkaline Phosphatase 61 Total Protein 6.9 Albumin 3.9 Globulin 3.0 Albumin/Globulin Ratio 1.30 Amylase 91 Lipase 110 Urine Color Yellow Urine Clarity Clear Urine pH 6.5 Ur Specific [place] 1.025 Urine Protein 1+ Urine Glucose (UA) Negative Urine Ketones Negative Urine Blood Negative Urine Nitrite Negative Urine Bilirubin Negative Urine Urobilinogen 0.2 Ur Leukocyte Esterase Negative Urine Microscopic RBC 0-2 Urine Microscopic WBC 2-5 Ur Squamous Epith Cells 2-5 Hyaline Casts 2-5 Urine Mucus 2+ Orders Category Date Time Status AMYLASE Stat LAB 11/21/17 20:15 Completed CBC W/ AUTO DIFF Stat LAB 11/21/17 20:15 Completed COMPREHENSIVE METABOLIC PANEL Stat LAB 11/21/17 20:15 Completed LIPASE Stat LAB 11/21/17 20:15 Completed URINALYSIS C & S IF INDICATED Stat LAB 11/21/17 20:17 Completed Dicyclomine Inj [Bentyl] MEDS 11/21/17 20:07 Discontinued 20 mg IM ONCE STA Medications Discontinued Medications Generic Name Dose Route Start Last Admin Trade Name Freq PRN Reason Stop Dose Admin Dicyclomine HCl 20 mg 11/21/17 20:07 11/21/17 20:22 Bentyl IM 11/21/17 20:08 20 mg ONCE STA Administration Vital Signs: Temp Pulse Resp BP Pulse Ox 11/21/17 19:15 97.5 F L 113 H 18 121/76 99 Departure - Departure Time of Disposition: 20:55 Disposition: HOME SELF-CARE Discharge Problem: Chronic abdominal pain Instructions: Chronic Abdominal Pain (ED) Condition: Stable Pt referred to PMD for follow-up: Yes IPMP verified?: No Additional Instructions: Keep your Apt with your GI Doctor. Follow up with the clinic for referral to pain management or refill of Tramadol. The ER DOES NO REFILL PAIN MEDICATIONS. I have refilled you bentyl since it is not controlled. Prescriptions: Dicyclomine HCl [Bentyl] 10 mg PO TID PRN #60 capsule PRN Reason: Abdominal Pain Allergies/Adverse Reactions: Allergies No Known Allergies Allergy (Verified 11/21/17 19:22) Home Medications: Ambulatory Orders Potassium Chloride [K-Dur] 40 meq PO BID 30 Days #60 tab 10/05/17 Zolpidem Tartrate [Ambien] 10 mg PO BEDTIME 10/10/17 Prednisone 10 mg PO DAILY 10/22/17 Dicyclomine HCl [Bentyl] 1 - 2 mg PO QID PRN #40 capsule 10/31/17 Tramadol HCl 50 mg PO Q4-6H PRN #20 tablet 10/31/17 Ondansetron HCl [Zofran Tab] 8 mg PO Q8H PRN 11/06/17 Cyanocobalamin (Vitamin B-12) [Vitamin B12] 5,000 mcg PO DAILY 11/21/17 Dicyclomine HCl [Bentyl] 10 mg PO TID PRN #60 capsule 11/21/17 Ferrous Sulfate [Slow Fe] 0.5 tab PO DAILY 11/21/17 Disposition Discussed With: Patient
[2017-11-21] MEDS ORDERED: BENTYL IM STA (20:07)
== END 2017-11-21 21:13 | disposition home or self-care (01) ==
LOC: ED 19:14
DX: R10.9 Unspecified abdominal pain (principal); G89.29 Other chronic pain; Z87.19 Personal history of other diseases of the digestive system; Z79.899 Other long term (current) drug therapy
CPT/HCPCS: 36415; 80053; 81001; 82150; 83690; 85025; 96372; 99283

== ENCOUNTER 2017-11-28 17:55 | Emergency (ER) ==
[2017-11-28 17:57] VITALS: BP 129/80; TEMP 98.2; BMI 24.6
--- NOTE | 2017-11-28 18:33 | ED.PDOC ---
General ED Provider: Dr. JULEE GONZALEZ-ER Chief Complaint: Abdominal Pain Stated Complaint: i have crohns dz and staring remicaide per dr prater--here for chronic abd pain Time Seen by Physician: 18:31 Mode of Arrival: Walk-In Information Source: Patient Exam Limitations: No limitations Nursing and Triage Documentation Reviewed and Agree: Yes Does patient meet sepsis criteria?: No System Inflammatory Response Syndrome: Not Applicable Sepsis Protocol: For patient's 13 years and over: Temp is 96.8 and below OR 101 and greater Pulse >90 BPM Resp >20/minute Acutely Altered Mental Status Are patient's symptoms suggestive of a new infection, such as: -Pneumonia -Skin, Soft Tissue -Endocarditis -UTI -Bone, Joint Infection -Implantable Device -Acute Abdominal Infection -Wound Infection -Meningitis -Blood Stream Catheter Infection -Unknown GI Complaint Exam - Abdominal Pain Complaint/Exam Onset: Gradual Duration: several days Symptoms Are: Still present Timing: Constant Initial Severity: Mild Current Severity: Mild Location of Pain: Diffuse Character: Reports: Dull, Aching Alleviating: Reports: None Associated Signs and Symptoms: Denies: Diaphoresis, Fever, Cough, Chest pain, Dizziness, Back pain, Constipation, Blood in stool, Dysuria, Urinary frequency, Decreased urine output, Decreased appetite, Discharge, Nausea, Vomiting, Diarrhea, Decreased activity Surgical Obstruction Risk Factors: Reports: Prior abdominal surgery Abdominal Findings: Present: None Differential Diagnoses: Other Review of Systems - Review Of Systems Constitutional: Reports: No symptoms Eyes: Reports: No symptoms Ears, Nose, Mouth, Throat: Reports: No symptoms Respiratory: Reports: No symptoms Cardiac: Reports: No symptoms GI: Reports: Abdominal pain : Reports: No symptoms Musculoskeletal: Reports: No symptoms Skin: Reports: No symptoms Neurological: Reports: No symptoms Endocrine: Reports: No symptoms Hematologic/Lymphatic: Reports: No symptoms All Other Systems: Reviewed and Negative Past Medical History - Past Medical History Previously Healthy: Yes Endocrine: Reports: Hypothyroid, Dyslipidemia Cardiovascular: Reports: None Respiratory: Reports: None Hematological: Reports: None Gastrointestinal: Reports: GERD, Crohn's, Pancreatitis Genitourinary: Reports: Kidney stones Neuro/Psych: Reports: Depression Musculoskeletal: Reports: None Cancer: Reports: None Other Pertinent Past Medical History: Hypokalemia - Surgical History General Surgical History: Reports: Other (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, INTESTINAL RESECTION) - Family History Family History: Reports: Unknown - Social History Smoking Status: Never smoker Hx Substance Use: No Alcohol Screening: None - Immunizations Influenza Vaccine within 12 Months: Yes Pneumococcal Vaccine up to Date: Yes Physical Exam - Physical Exam Appearance: Well-appearing Eyes: DISHA, EOMI, Conjunctiva clear ENT: Ears normal, Nose normal, Oropharynx normal Neck: Supple Respiratory: Airway patent, Breath sounds clear, Breath sounds equal, Respirations nonlabored Cardiovascular: RRR, Pulses normal, No rub, No murmur GI/: Soft, Nontender, No masses, Bowel sounds normal, No Organomegaly Musculoskeletal: Normal strength, ROM intact, No edema, No calf tenderness Skin: Warm, Dry, Normal color Neurological: Sensation intact, Motor intact, Reflexes intact, Cranial nerves intact, Alert, Oriented Psychiatric: Affect appropriate, Mood appropriate Critical Care Note - Critical Care Note Total Time (mins): 0 Course - Course Orders, Labs, Meds: denies any warning symp;toms with his chronic abd pain such as fever, chills, vomiting or blood in the stool Vital Signs: Temp Pulse Resp BP Pulse Ox 11/28/17 17:56 98.2 F 121 H 20 129/80 98 Departure - Departure Time of Disposition: 18:32 Disposition: HOME SELF-CARE Discharge Problem: Chronic abdominal pain Instructions: Chronic Abdominal Pain (ED) Condition: Good Pt referred to PMD for follow-up: No IPMP verified?: No Additional Instructions: ultram 50mg q 8hrs prn pain#12--f/u with pcp and dr prater Allergies/Adverse Reactions: Allergies No Known Allergies Allergy (Verified 11/28/17 17:58) Home Medications: Ambulatory Orders Potassium Chloride [K-Dur] 40 meq PO BID 30 Days #60 tab 10/05/17 Zolpidem Tartrate [Ambien] 10 mg PO BEDTIME 10/10/17 Prednisone 10 mg PO DAILY 10/22/17 Ondansetron HCl [Zofran Tab] 8 mg PO Q8H PRN 11/06/17 Cyanocobalamin (Vitamin B-12) [Vitamin B12] 5,000 mcg PO DAILY 11/21/17 Dicyclomine HCl [Bentyl] 10 mg PO TID PRN #60 capsule 11/21/17 Ferrous Sulfate [Slow Fe] 0.5 tab PO DAILY 11/21/17 Disposition Discussed With: Patient, Family
== END 2017-11-28 18:56 | disposition home or self-care (01) ==
LOC: ED 17:55
DX: R10.9 Unspecified abdominal pain (principal); G89.29 Other chronic pain; K50.90 Crohn's disease, unspecified, without complications
CPT/HCPCS: 99282

== ENCOUNTER 2017-12-04 00:44 | Outpatient (CLI) | END 2017-12-04 00:57 | disposition short-term general hospital (02) | LOC: AMBL 00:44 | PROVIDERS: ATTEND Family Medicine | DX: R10.9 Unspecified abdominal pain (principal); K50.90 Crohn's disease, unspecified, without complications ==

== ENCOUNTER 2018-01-02 19:15 | Emergency (ER) ==
[2018-01-02 19:29] VITALS: BP 117/77; TEMP 97.8; BMI 26.0
== END 2018-01-02 20:32 | disposition left against medical advice (07) ==
LOC: ED 19:15
DX: R10.84 Generalized abdominal pain (principal); R19.7 Diarrhea, unspecified; R11.0 Nausea; G89.29 Other chronic pain

== ENCOUNTER 2018-01-07 18:33 | Emergency (ER) ==
[2018-01-07 18:36] VITALS: BP 135/82; BMI 28.3
[2018-01-07 18:41] VITALS: TEMP 98.4
--- NOTE | 2018-01-07 18:42 | ED.PDOC ---
General ED Provider: Dr. JULEE GONZALEZ-ER Chief Complaint: Abdominal Pain Stated Complaint: im out of my ultram Time Seen by Physician: 18:40 Mode of Arrival: Walk-In Information Source: Patient Exam Limitations: No limitations Primary Care Provider: EUGENE ARGUELLO Nursing and Triage Documentation Reviewed and Agree: Yes Does patient meet sepsis criteria?: No System Inflammatory Response Syndrome: Not Applicable Sepsis Protocol: For patient's 13 years and over: Temp is 96.8 and below OR 101 and greater Pulse >90 BPM Resp >20/minute Acutely Altered Mental Status Are patient's symptoms suggestive of a new infection, such as: -Pneumonia -Skin, Soft Tissue -Endocarditis -UTI -Bone, Joint Infection -Implantable Device -Acute Abdominal Infection -Wound Infection -Meningitis -Blood Stream Catheter Infection -Unknown GI Complaint Exam - Abdominal Pain Complaint/Exam Onset: Gradual Duration: several days Symptoms Are: Still present Timing: Intermittent Initial Severity: Mild Current Severity: Mild Location of Pain: Diffuse Character: Reports: Dull, Aching Aggravating: Reports: None Alleviating: Reports: Spontaneous resolution Associated Signs and Symptoms: Denies: Diaphoresis, Fever, Cough, Chest pain, Dizziness, Back pain, Constipation, Blood in stool, Dysuria, Urinary frequency, Decreased urine output, Decreased appetite, Discharge, Nausea, Vomiting, Diarrhea, Decreased activity Related History: Reports: Similar episode Testicular Torsion Risk Factors: Reports: None Related Surgical History: Reports: Cholecystectomy Differential Diagnoses: Constipation, Other (chrons dz) Review of Systems - Review Of Systems Constitutional: Reports: No symptoms Eyes: Reports: No symptoms Ears, Nose, Mouth, Throat: Reports: No symptoms Respiratory: Reports: No symptoms Cardiac: Reports: No symptoms GI: Reports: Abdominal pain : Reports: No symptoms Musculoskeletal: Reports: No symptoms Skin: Reports: No symptoms Neurological: Reports: No symptoms Endocrine: Reports: No symptoms Hematologic/Lymphatic: Reports: No symptoms All Other Systems: Reviewed and Negative Past Medical History - Past Medical History Previously Healthy: Yes Endocrine: Reports: Hypothyroid, Dyslipidemia Cardiovascular: Reports: None Respiratory: Reports: None Hematological: Reports: None Gastrointestinal: Reports: GERD, Crohn's, Pancreatitis Genitourinary: Reports: Kidney stones Neuro/Psych: Reports: Depression Musculoskeletal: Reports: None Cancer: Reports: None Other Pertinent Past Medical History: Hypokalemia - Surgical History General Surgical History: Reports: Other (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, INTESTINAL RESECTION) - Family History Family History: Reports: Unknown - Social History Smoking Status: Never smoker Hx Substance Use: No Alcohol Screening: None - Immunizations Tetanus Shot up to Date: No Influenza Vaccine within 12 Months: Yes Pneumococcal Vaccine up to Date: Yes Physical Exam - Physical Exam Appearance: Well-appearing Pain Distress: Mild Eyes: DISHA, EOMI, Conjunctiva clear ENT: Ears normal, Nose normal, Oropharynx normal Neck: Supple Respiratory: Airway patent, Breath sounds clear, Breath sounds equal, Respirations nonlabored Cardiovascular: RRR, Pulses normal, No rub, No murmur GI/: Soft, Nontender, No masses, Bowel sounds normal, No Organomegaly Musculoskeletal: Normal strength Skin: Warm, Dry, Normal color Neurological: Sensation intact, Motor intact, Reflexes intact, Cranial nerves intact, Alert, Oriented Psychiatric: Affect appropriate, Mood appropriate Critical Care Note - Critical Care Note Total Time (mins): 0 Course - Course Vital Signs: Temp Pulse Resp BP Pulse Ox 01/07/18 18:34 98.4 F 146 H 18 135/82 97 Departure - Departure Time of Disposition: 18:42 Disposition: HOME SELF-CARE Discharge Problem: Chronic abdominal pain Instructions: Chronic Abdominal Pain (ED) Condition: Good Pt referred to PMD for follow-up: Yes IPMP verified?: Yes Additional Instructions: ultram 50mg q 6hrs prn pain #15--f/u with pcp Allergies/Adverse Reactions: Allergies No Known Allergies Allergy (Verified 01/02/18 19:29) Home Medications: Ambulatory Orders Potassium Chloride [K-Dur] 40 meq PO BID 30 Days #60 tab 10/05/17 Zolpidem Tartrate [Ambien] 10 mg PO BEDTIME 10/10/17 Prednisone 40 mg PO DAILY 10/22/17 Ondansetron HCl [Zofran Tab] 8 mg PO Q8H PRN 11/06/17 Ciprofloxacin HCl [Cipro] 500 mg PO BID 01/02/18 Metronidazole [Flagyl] 500 mg PO Q8H 01/02/18 Disposition Discussed With: Patient
== END 2018-01-07 18:52 | disposition home or self-care (01) ==
LOC: ED 18:33
DX: R10.9 Unspecified abdominal pain (principal); G89.29 Other chronic pain; Z79.899 Other long term (current) drug therapy
CPT/HCPCS: 99283

== ENCOUNTER 2018-01-15 12:43 | Emergency (ER) ==
[2018-01-15 12:45] VITALS: BP 138/81; TEMP 96.7; BMI 24.7
[2018-01-15] MEDS ORDERED: BENTYL IM STA (13:32)
--- NOTE | 2018-01-15 13:43 | ED.PDOC ---
General ED Provider: Dr. URMILA TRAMMELL Chief Complaint: Abdominal Pain Stated Complaint: Patient is a 32 year old male with chronic pain who comes to the ER with abominal pain Time Seen by Physician: 13:00 Mode of Arrival: Walk-In Information Source: Patient Exam Limitations: No limitations Nursing and Triage Documentation Reviewed and Agree: Yes Does patient meet sepsis criteria?: Yes If yes, has appropriate treatment been initiated?: No (no suspicious -chronic condition) System Inflammatory Response Syndrome: Temp 96.8F or Lower, Pulse >90 BPM Sepsis Protocol: For patient's 13 years and over: Temp is 96.8 and below OR 101 and greater Pulse >90 BPM Resp >20/minute Acutely Altered Mental Status Are patient's symptoms suggestive of a new infection, such as: -Pneumonia -Skin, Soft Tissue -Endocarditis -UTI -Bone, Joint Infection -Implantable Device -Acute Abdominal Infection -Wound Infection -Meningitis -Blood Stream Catheter Infection -Unknown Review of Systems - Review Of Systems Constitutional: Reports: No symptoms Eyes: Reports: No symptoms Ears, Nose, Mouth, Throat: Reports: No symptoms Respiratory: Reports: No symptoms Cardiac: Reports: No symptoms GI: Reports: Abdominal pain, Nausea : Reports: No symptoms Musculoskeletal: Reports: No symptoms Skin: Reports: No symptoms Neurological: Reports: No symptoms Endocrine: Reports: No symptoms Hematologic/Lymphatic: Reports: No symptoms All Other Systems: Reviewed and Negative Past Medical History - Past Medical History Previously Healthy: Yes Endocrine: Reports: Hypothyroid, Dyslipidemia Cardiovascular: Reports: None Respiratory: Reports: None Hematological: Reports: None Gastrointestinal: Reports: GERD, Crohn's, Pancreatitis Genitourinary: Reports: Kidney stones Neuro/Psych: Reports: Depression Musculoskeletal: Reports: None Cancer: Reports: None Other Pertinent Past Medical History: Hypokalemia - Surgical History General Surgical History: Reports: Other (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, INTESTINAL RESECTION) - Family History Family History: Reports: Unknown - Social History Smoking Status: Never smoker Hx Substance Use: No Alcohol Screening: None - Immunizations Tetanus Shot up to Date: No Influenza Vaccine within 12 Months: Yes Pneumococcal Vaccine up to Date: Yes Physical Exam - Physical Exam Appearance: Well-appearing Pain Distress: Mild Eyes: DISHA, EOMI, Conjunctiva clear ENT: Ears normal, Nose normal, Oropharynx normal Respiratory: Airway patent, Breath sounds clear, Breath sounds equal, Respirations nonlabored Cardiovascular: RRR, Pulses normal, No rub, No murmur GI/: Soft, No masses, Bowel sounds normal, No Organomegaly, Tender (mild diffuse ) Musculoskeletal: Normal strength, ROM intact, No edema, No calf tenderness Skin: Warm, Dry, Normal color Neurological: Sensation intact, Motor intact, Reflexes intact, Cranial nerves intact, Alert, Oriented Psychiatric: Affect appropriate, Mood appropriate Critical Care Note - Critical Care Note Total Time (mins): 0 Course - Course Hematology/Chemistry: 01/15/18 13:50 01/15/18 13:50 Orders, Labs, Meds: Lab Review 01/15/18 01/15/18 13:50 13:50 WBC 6.99 RBC 3.32 L Hgb 10.2 L Hct 28.7 L MCV 86.4 MCH 30.7 MCHC 35.5 H RDW Coeff of Svitlana 12.7 Plt Count 197 Immature Gran % (Auto) 0.7 Neut % (Auto) 79.3 Lymph % (Auto) 15.6 [place] % (Auto) 4.3 Eos % (Auto) 0.0 Baso % (Auto) 0.1 Immature Gran # (Auto) 0.1 Neut # (Auto) 5.5 Lymph # (Auto) 1.1 [place] # (Auto) 0.3 L Eos # (Auto) 0.0 Baso # (Auto) 0.0 Sodium 137.0 Potassium 3.10 L Chloride 106.6 Carbon Dioxide 25.2 Anion Gap 8.30 BUN 22.4 H Creatinine 1.10 Estimated GFR (MDRD) 77.00 BUN/Creatinine Ratio 20.36 Glucose 137.0 H Calcium 9.11 Total Bilirubin 0.23 AST 17.8 ALT 26.7 Alkaline Phosphatase 67.4 Total Protein 6.73 Albumin 3.91 Globulin 2.82 Albumin/Globulin Ratio 1.38 Amylase 95.8 Lipase 164.4 Orders Category Date Time Status AMYLASE Stat LAB 01/15/18 13:50 Completed CBC W/ AUTO DIFF Stat LAB 01/15/18 13:50 Completed COMPREHENSIVE METABOLIC PANEL Stat LAB 01/15/18 13:50 Completed LIPASE Stat LAB 01/15/18 13:50 Completed Dicyclomine Inj [Bentyl] MEDS 01/15/18 13:32 Discontinued 20 mg IM ONCE STA Medications Discontinued Medications Generic Name Dose Route Start Last Admin Trade Name Freq PRN Reason Stop Dose Admin Dicyclomine HCl 20 mg 11/03/18 13:32 01/15/18 13:50 Bentyl IM 01/15/18 13:33 Not Given ONCE STA Vital Signs: Temp Pulse Resp BP Pulse Ox 01/15/18 12:43 96.7 F L 103 H 18 138/81 97 Departure - Departure Time of Disposition: 14:14 Disposition: HOME SELF-CARE Discharge Problem: Abdominal pain Instructions: Chronic Abdominal Pain (ED) Condition: Stable Pt referred to PMD for follow-up: Yes IPMP verified?: No Additional Instructions: Follow up with your Gi doctor Push Fluids with electrolytes Take potassium as prescribed Prescriptions: Potassium Chloride 20 meq PO DAILY #10 tab.er.prt Allergies/Adverse Reactions: Allergies No Known Allergies Allergy (Verified 01/15/18 12:45) Home Medications: Ambulatory Orders Potassium Chloride [K-Dur] 40 meq PO BID 30 Days #60 tab 10/05/17 Zolpidem Tartrate [Ambien] 10 mg PO BEDTIME 10/10/17 Prednisone 40 mg PO DAILY 10/22/17 Ondansetron HCl [Zofran Tab] 8 mg PO Q8H PRN 11/06/17 Metronidazole [Flagyl] 500 mg PO Q8H 01/02/18 Potassium Chloride 20 meq PO DAILY #10 tab.er.prt 01/15/18 Disposition Discussed With: Family
== END 2018-01-15 14:24 | disposition home or self-care (01) ==
LOC: ED 12:43
DX: R10.9 Unspecified abdominal pain (principal); G89.29 Other chronic pain; E87.6 Hypokalemia; Z87.19 Personal history of other diseases of the digestive system; Z87.442 Personal history of urinary calculi; E03.9 Hypothyroidism, unspecified; E78.5 Hyperlipidemia, unspecified
CPT/HCPCS: 36415; 80053; 82150; 83690; 85025; 99283

== ENCOUNTER 2018-01-18 20:37 | Emergency (ER) ==
[2018-01-18 20:38] VITALS: BMI 24.7
[2018-01-18 20:43] VITALS: BP 118/81; TEMP 99.3
--- NOTE | 2018-01-18 21:29 | ED.PDOC ---
General ED Provider: Dr. URMILA TRAMMELL Chief Complaint: Abdominal Pain Stated Complaint: Patient has a history of chronic abdominal pain who states he was seen [place] was offered admission but he refused stating that he would not have a ride home. Time Seen by Physician: 21:27 Mode of Arrival: Walk-In Information Source: Patient Nursing and Triage Documentation Reviewed and Agree: Yes Does patient meet sepsis criteria?: No System Inflammatory Response Syndrome: Not Applicable Sepsis Protocol: For patient's 13 years and over: Temp is 96.8 and below OR 101 and greater Pulse >90 BPM Resp >20/minute Acutely Altered Mental Status Are patient's symptoms suggestive of a new infection, such as: -Pneumonia -Skin, Soft Tissue -Endocarditis -UTI -Bone, Joint Infection -Implantable Device -Acute Abdominal Infection -Wound Infection -Meningitis -Blood Stream Catheter Infection -Unknown Review of Systems - Review Of Systems Constitutional: Reports: No symptoms Eyes: Reports: No symptoms Ears, Nose, Mouth, Throat: Reports: No symptoms Respiratory: Reports: No symptoms Cardiac: Reports: No symptoms GI: Reports: Abdominal pain, Nausea, Poor appetite : Reports: No symptoms Musculoskeletal: Reports: No symptoms Skin: Reports: No symptoms Neurological: Reports: Anxiety Endocrine: Reports: No symptoms Hematologic/Lymphatic: Reports: No symptoms All Other Systems: Reviewed and Negative Past Medical History - Past Medical History Previously Healthy: Yes Endocrine: Reports: Hypothyroid, Dyslipidemia Cardiovascular: Reports: None Respiratory: Reports: None Hematological: Reports: None Gastrointestinal: Reports: GERD, Crohn's, Pancreatitis Genitourinary: Reports: Kidney stones Neuro/Psych: Reports: Depression Musculoskeletal: Reports: None Cancer: Reports: None Other Pertinent Past Medical History: Hypokalemia - Surgical History General Surgical History: Reports: Other (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, INTESTINAL RESECTION) - Family History Family History: Reports: Unknown - Social History Smoking Status: Never smoker Hx Substance Use: No Alcohol Screening: None - Immunizations Tetanus Shot up to Date: Yes Influenza Vaccine within 12 Months: Yes Pneumococcal Vaccine up to Date: Yes Physical Exam - Physical Exam Appearance: Ill-appearing Ill-appearing: Mild Pain Distress: Mild Respiratory: Airway patent, Breath sounds clear, Breath sounds equal, Respirations nonlabored Cardiovascular: Tachycardia GI/: Soft, Tender Musculoskeletal: Normal strength, ROM intact, No edema, No calf tenderness Skin: Warm, Dry, Normal color Neurological: Alert, Oriented Critical Care Note - Critical Care Note Total Time (mins): 0 Comments: Refused to get labs done. Course - Course Vital Signs: Temp Pulse Resp BP Pulse Ox 01/18/18 20:38 99.3 F 131 H 24 118/81 97 Departure - Departure Time of Disposition: 21:27 Disposition: HOME SELF-CARE Discharge Problem: Abdominal pain Instructions: Chronic Abdominal Pain (ED) Condition: Good Pt referred to PMD for follow-up: Yes IPMP verified?: No Additional Instructions: Keep Apt with your GI doctor if you doctor wants to admit you you should agree to be admitted Prescriptions: Ondansetron [Zofran Odt] 4 mg PO Q8H PRN #25 tab.rapdis PRN Reason: Nausea / Vomiting Allergies/Adverse Reactions: Allergies No Known Allergies Allergy (Verified 01/15/18 12:45) Home Medications: Ambulatory Orders Potassium Chloride [K-Dur] 40 meq PO BID 30 Days #60 tab 10/05/17 Zolpidem Tartrate [Ambien] 10 mg PO BEDTIME 10/10/17 Prednisone 40 mg PO DAILY 10/22/17 Ondansetron HCl [Zofran Tab] 8 mg PO Q8H PRN 11/06/17 Metronidazole [Flagyl] 500 mg PO Q8H 01/02/18 Potassium Chloride 20 meq PO DAILY #10 tab.er.prt 01/15/18 Ondansetron [Zofran Odt] 4 mg PO Q8H PRN #25 tab.rapdis 01/18/18 Disposition Discussed With: Patient
== END 2018-01-18 21:34 | disposition home or self-care (01) ==
LOC: ED 20:37
DX: R10.9 Unspecified abdominal pain (principal); G89.29 Other chronic pain
CPT/HCPCS: 99282

== ENCOUNTER 2018-01-23 19:11 | Emergency (ER) ==
[2018-01-23 19:13] VITALS: BP 120/72; TEMP 97.9; BMI 24.6
--- NOTE | 2018-01-23 19:14 | ED.PDOC ---
General ED Provider: Dr. JULEE GONZALEZ-ER Chief Complaint: Abdominal Pain Stated Complaint: i have abdominal paIn chronically---i am out of ultram Time Seen by Physician: 19:12 Mode of Arrival: Walk-In Information Source: Patient Exam Limitations: No limitations Nursing and Triage Documentation Reviewed and Agree: Yes Does patient meet sepsis criteria?: No System Inflammatory Response Syndrome: Not Applicable Sepsis Protocol: For patient's 13 years and over: Temp is 96.8 and below OR 101 and greater Pulse >90 BPM Resp >20/minute Acutely Altered Mental Status Are patient's symptoms suggestive of a new infection, such as: -Pneumonia -Skin, Soft Tissue -Endocarditis -UTI -Bone, Joint Infection -Implantable Device -Acute Abdominal Infection -Wound Infection -Meningitis -Blood Stream Catheter Infection -Unknown GI Complaint Exam - Abdominal Pain Complaint/Exam Onset: Gradual Duration: several hours Symptoms Are: Still present Timing: Constant Initial Severity: Mild Current Severity: Moderate Location of Pain: Diffuse Character: Reports: Dull, Aching, Cramping Aggravating: Reports: None Associated Signs and Symptoms: Denies: Diaphoresis, Fever, Cough, Chest pain, Dizziness, Back pain, Constipation, Blood in stool, Dysuria, Urinary frequency, Decreased urine output, Decreased appetite, Discharge, Nausea, Vomiting, Diarrhea, Decreased activity Surgical Obstruction Risk Factors: Reports: Prior abdominal surgery Related Surgical History: Reports: Cholecystectomy Abdominal Findings: Present: None Differential Diagnoses: Other Review of Systems - Review Of Systems Constitutional: Reports: No symptoms Eyes: Reports: No symptoms Ears, Nose, Mouth, Throat: Reports: No symptoms Respiratory: Reports: No symptoms Cardiac: Reports: No symptoms GI: Reports: Abdominal pain : Reports: No symptoms Musculoskeletal: Reports: No symptoms Skin: Reports: No symptoms Neurological: Reports: No symptoms Endocrine: Reports: No symptoms Hematologic/Lymphatic: Reports: No symptoms All Other Systems: Reviewed and Negative Past Medical History - Past Medical History Previously Healthy: Yes Endocrine: Reports: Hypothyroid, Dyslipidemia Cardiovascular: Reports: None Respiratory: Reports: None Hematological: Reports: None Gastrointestinal: Reports: GERD, Crohn's, Pancreatitis Genitourinary: Reports: Kidney stones Neuro/Psych: Reports: Depression Musculoskeletal: Reports: None Cancer: Reports: None Other Pertinent Past Medical History: Hypokalemia - Surgical History General Surgical History: Reports: Other (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, INTESTINAL RESECTION) - Family History Family History: Reports: Unknown - Social History Smoking Status: Never smoker Hx Substance Use: No Alcohol Screening: None - Immunizations Influenza Vaccine within 12 Months: Yes Pneumococcal Vaccine up to Date: Yes Physical Exam - Physical Exam Appearance: Well-appearing Pain Distress: Mild Eyes: DISHA, EOMI, Conjunctiva clear ENT: Ears normal, Nose normal, Oropharynx normal Neck: Supple Respiratory: Airway patent Cardiovascular: RRR, Pulses normal, No rub, No murmur GI/: Soft, Nontender, No masses, Bowel sounds normal, No Organomegaly Musculoskeletal: Normal strength, ROM intact, No edema, No calf tenderness Skin: Warm, Dry, Normal color Neurological: Sensation intact, Motor intact, Reflexes intact, Cranial nerves intact, Alert, Oriented Psychiatric: Affect appropriate, Mood appropriate Critical Care Note - Critical Care Note Total Time (mins): 0 Course - Course Orders, Labs, Meds: Barrys pain is the same as always--no warning signs such has fever, chills, vomiting or blood in stool Departure - Departure Time of Disposition: 19:13 Disposition: HOME SELF-CARE Discharge Problem: Chronic abdominal pain Instructions: Chronic Abdominal Pain (ED) Condition: Good Pt referred to PMD for follow-up: Yes IPMP verified?: No Additional Instructions: ultram 50mg q 8hrs prn pain #12---keep f/u with your gi doctor Allergies/Adverse Reactions: Allergies No Known Allergies Allergy (Verified 01/15/18 12:45) Home Medications: Ambulatory Orders Potassium Chloride [K-Dur] 40 meq PO BID 30 Days #60 tab 10/05/17 Zolpidem Tartrate [Ambien] 10 mg PO BEDTIME 10/10/17 Prednisone 40 mg PO DAILY 10/22/17 Ondansetron HCl [Zofran Tab] 8 mg PO Q8H PRN 11/06/17 Metronidazole [Flagyl] 500 mg PO Q8H 01/02/18 Potassium Chloride 20 meq PO DAILY #10 tab.er.prt 01/15/18 Ondansetron [Zofran Odt] 4 mg PO Q8H PRN #25 tab.rapdis 01/18/18 Disposition Discussed With: Patient
== END 2018-01-23 19:19 | disposition home or self-care (01) ==
LOC: ED 19:11
DX: R10.9 Unspecified abdominal pain (principal); G89.29 Other chronic pain; Z87.19 Personal history of other diseases of the digestive system
CPT/HCPCS: 99282

== ENCOUNTER 2018-01-30 15:08 | Emergency (ER) ==
[2018-01-30 15:08] VITALS: BMI 24.6
[2018-01-30 15:12] VITALS: BP 122/84; TEMP 97.1
--- NOTE | 2018-01-30 15:13 | ED.PDOC ---
General ED Provider: Dr. JULEE GONZALEZ-ER Chief Complaint: Abdominal Pain Stated Complaint: my pain is no different than usual Time Seen by Physician: 15:10 Mode of Arrival: Walk-In Information Source: Patient Exam Limitations: No limitations Nursing and Triage Documentation Reviewed and Agree: Yes Does patient meet sepsis criteria?: No System Inflammatory Response Syndrome: Not Applicable Sepsis Protocol: For patient's 13 years and over: Temp is 96.8 and below OR 101 and greater Pulse >90 BPM Resp >20/minute Acutely Altered Mental Status Are patient's symptoms suggestive of a new infection, such as: -Pneumonia -Skin, Soft Tissue -Endocarditis -UTI -Bone, Joint Infection -Implantable Device -Acute Abdominal Infection -Wound Infection -Meningitis -Blood Stream Catheter Infection -Unknown GI Complaint Exam - Abdominal Pain Complaint/Exam Onset: Gradual Duration: several mos Symptoms Are: Still present Timing: Intermittent Initial Severity: Mild Current Severity: Moderate Location of Pain: Diffuse Character: Reports: Dull, Aching Alleviating: Reports: Spontaneous resolution Associated Signs and Symptoms: Denies: Diaphoresis, Fever, Cough, Chest pain, Dizziness, Back pain, Constipation, Blood in stool, Dysuria, Urinary frequency, Decreased urine output, Decreased appetite, Discharge, Nausea, Vomiting, Diarrhea, Decreased activity Review of Systems - Review Of Systems Constitutional: Reports: No symptoms Eyes: Reports: No symptoms Ears, Nose, Mouth, Throat: Reports: No symptoms Respiratory: Reports: No symptoms Cardiac: Reports: No symptoms GI: Reports: Abdominal pain : Reports: No symptoms Musculoskeletal: Reports: No symptoms Skin: Reports: No symptoms Neurological: Reports: No symptoms Endocrine: Reports: No symptoms Hematologic/Lymphatic: Reports: No symptoms All Other Systems: Reviewed and Negative Past Medical History - Past Medical History Previously Healthy: Yes Endocrine: Reports: Hypothyroid, Dyslipidemia Cardiovascular: Reports: None Respiratory: Reports: None Hematological: Reports: None Gastrointestinal: Reports: GERD, Crohn's, Pancreatitis Genitourinary: Reports: Kidney stones Neuro/Psych: Reports: Depression Musculoskeletal: Reports: None Cancer: Reports: None Other Pertinent Past Medical History: Hypokalemia - Surgical History General Surgical History: Reports: Other (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, INTESTINAL RESECTION) - Family History Family History: Reports: Unknown - Social History Smoking Status: Never smoker Hx Substance Use: No Alcohol Screening: None - Immunizations Influenza Vaccine within 12 Months: Yes Pneumococcal Vaccine up to Date: Yes Physical Exam - Physical Exam Appearance: Well-appearing, No pain distress, Well-nourished Pain Distress: Mild Eyes: DISHA ENT: Ears normal, Nose normal, Oropharynx normal Neck: Supple Respiratory: Airway patent, Breath sounds clear, Breath sounds equal, Respirations nonlabored Cardiovascular: RRR, Pulses normal, No rub, No murmur GI/: Soft, Nontender, No masses, Bowel sounds normal, No Organomegaly Musculoskeletal: Normal strength, ROM intact, No edema, No calf tenderness Skin: Warm, Dry, Normal color Neurological: Sensation intact, Motor intact, Reflexes intact, Cranial nerves intact, Alert, Oriented Psychiatric: Affect appropriate, Mood appropriate Critical Care Note - Critical Care Note Total Time (mins): 0 Departure - Departure Time of Disposition: 15:12 Disposition: HOME SELF-CARE Discharge Problem: Abdominal pain, Chronic abdominal pain Instructions: Chronic Abdominal Pain (ED) Condition: Good Pt referred to PMD for follow-up: No IPMP verified?: No Additional Instructions: ultram 50mg q 6hrs prn pain #15--good luck with tx for crohns dz Allergies/Adverse Reactions: Allergies No Known Allergies Allergy (Verified 01/15/18 12:45) Home Medications: Ambulatory Orders Potassium Chloride [K-Dur] 40 meq PO BID 30 Days #60 tab 10/05/17 Zolpidem Tartrate [Ambien] 10 mg PO BEDTIME 10/10/17 Prednisone 40 mg PO DAILY 10/22/17 Ondansetron HCl [Zofran Tab] 8 mg PO Q8H PRN 11/06/17 Metronidazole [Flagyl] 500 mg PO Q8H 01/02/18 Potassium Chloride 20 meq PO DAILY #10 tab.er.prt 01/15/18 Ondansetron [Zofran Odt] 4 mg PO Q8H PRN #25 tab.rapdis 01/18/18 Disposition Discussed With: Patient
== END 2018-01-30 15:17 | disposition home or self-care (01) ==
LOC: ED 15:08
DX: R10.9 Unspecified abdominal pain (principal); G89.29 Other chronic pain; Z87.19 Personal history of other diseases of the digestive system
CPT/HCPCS: 99282

== ENCOUNTER 2018-03-06 21:15 | Emergency (ER) ==
[2018-03-06 21:23] VITALS: BP 126/80; TEMP 98.1; BMI 24.2
--- NOTE | 2018-03-06 21:51 | ED.PDOC ---
General ED Provider: Dr. JULEE CLAYTON MD Chief Complaint: Urinary Problem Stated Complaint: dysuria Time Seen by Physician: 21:45 Mode of Arrival: Walk-In Information Source: Patient Exam Limitations: No limitations Nursing and Triage Documentation Reviewed and Agree: Yes Does patient meet sepsis criteria?: No If yes, has appropriate treatment been initiated?: Yes System Inflammatory Response Syndrome: Not Applicable Sepsis Protocol: For patient's 13 years and over: Temp is 96.8 and below OR 101 and greater Pulse >90 BPM Resp >20/minute Acutely Altered Mental Status Are patient's symptoms suggestive of a new infection, such as: -Pneumonia -Skin, Soft Tissue -Endocarditis -UTI -Bone, Joint Infection -Implantable Device -Acute Abdominal Infection -Wound Infection -Meningitis -Blood Stream Catheter Infection -Unknown Complaint Exam - Complaint/Exam Symptoms Are: Still present Timing: Intermittent Initial Severity: Mild Current Severity: Mild Character: Reports: Burning Aggravating: Reports: Voiding Alleviating: Reports: None Abdominal Findings: Present: None Genitalia Exam: Present: Normal findings Differential Diagnoses: Other (UTi, seen [address] qbd/pelvis no stone, poss cystitis) Review of Systems - Review Of Systems Constitutional: Reports: No symptoms, Other (dysuria) Eyes: Reports: No symptoms Ears, Nose, Mouth, Throat: Reports: No symptoms Respiratory: Reports: No symptoms Cardiac: Reports: No symptoms GI: Reports: No symptoms : Reports: No symptoms Musculoskeletal: Reports: No symptoms Skin: Reports: No symptoms Neurological: Reports: No symptoms Endocrine: Reports: No symptoms Hematologic/Lymphatic: Reports: No symptoms All Other Systems: Reviewed and Negative Past Medical History - Past Medical History Previously Healthy: Yes Endocrine: Reports: Hypothyroid, Dyslipidemia Cardiovascular: Reports: None Respiratory: Reports: None Hematological: Reports: None Gastrointestinal: Reports: GERD, Crohn's, Pancreatitis Genitourinary: Reports: Kidney stones Neuro/Psych: Reports: Depression Musculoskeletal: Reports: None Cancer: Reports: None Other Pertinent Past Medical History: Hypokalemia - Surgical History General Surgical History: Reports: Other (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, INTESTINAL RESECTION) - Family History Family History: Reports: Unknown - Social History Smoking Status: Never smoker Hx Substance Use: No Alcohol Screening: None - Immunizations Tetanus Shot up to Date: (UNKNOWN) Influenza Vaccine within 12 Months: Yes Pneumococcal Vaccine up to Date: Yes Physical Exam - Physical Exam Appearance: Well-appearing, Thin Ill-appearing: None Pain Distress: None Eyes: DISHA ENT: Ears normal, Nose normal, Oropharynx normal Cardiovascular: RRR, Pulses normal, No rub, No murmur GI/: Soft Musculoskeletal: Normal strength, ROM intact, No edema, No calf tenderness Skin: Warm, Dry, Normal color Neurological: Sensation intact, Motor intact, Reflexes intact, Cranial nerves intact, Alert, Oriented Psychiatric: Anxious Critical Care Note - Critical Care Note Total Time (mins): 0 Course - Course Orders, Labs, Meds: Lab Review 03/06/18 21:30 Urine Color Yellow Urine Clarity Clear Urine pH 6.0 Ur Specific [place] >=1.030 Urine Protein 1+ Urine Glucose (UA) Negative Urine Ketones Trace Urine Blood Trace-intact Urine Nitrite Negative Urine Bilirubin 1+ Urine Urobilinogen 0.2 Ur Leukocyte Esterase Negative Urine Microscopic RBC 0-2 Ur Squamous Epith Cells Not present Hyaline Casts 0-2 Urine Mucus Trace Orders Category Date Time Status UA [URINALYSIS C & S IF INDICATED] Stat LAB 03/06/18 21:30 Completed Vital Signs: Temp Pulse Resp BP Pulse Ox 03/06/18 21:16 98.1 F 111 H 18 126/80 99 Departure - Departure Time of Disposition: 20:15 Disposition: HOME SELF-CARE Discharge Problem: Dysuria Instructions: Urinary Tract Infection in Men (ED) Condition: Good Pt referred to PMD for follow-up: Yes IPMP verified?: No Prescriptions: Ciprofloxacin 500 mg PO 1-2XD #14 ml NS Phenazopyridine HCl [Pyridium] 200 mg PO 1-2XD 7 Days #14 tablet Allergies/Adverse Reactions: Allergies No Known Allergies Allergy (Verified 03/06/18 21:24) Home Medications: Ambulatory Orders Potassium Chloride [K-Dur] 40 meq PO BID 30 Days #60 tab 10/05/17 Ciprofloxacin 500 mg PO 1-2XD #14 ml NS 03/06/18 Citalopram Hydrobromide [Celexa] 40 mg PO DAILY 03/06/18 Dextroamphetamine/Amphetamine [Adderall 20 mg Tablet] 20 mg PO BID 03/06/18 Phenazopyridine HCl [Pyridium] 200 mg PO 1-2XD 7 Days #14 tablet 03/06/18 Zolpidem Tartrate [Ambien] 10 mg PO BEDTIME 03/06/18
== END 2018-03-06 22:03 | disposition home or self-care (01) ==
LOC: ED 21:15
DX: N39.0 Urinary tract infection, site not specified (principal)
CPT/HCPCS: 81001; 99283

== ENCOUNTER 2018-03-13 19:45 | Emergency (ER) ==
--- NOTE | 2018-03-13 19:49 | ED.PDOC ---
General ED Provider: Dr. JULEE GONZALEZ-ER Chief Complaint: Abdominal Pain Stated Complaint: my bella is acting jup and im out of ultram for the pain Time Seen by Physician: 19:48 Mode of Arrival: Walk-In Information Source: Patient Exam Limitations: No limitations Nursing and Triage Documentation Reviewed and Agree: Yes Does patient meet sepsis criteria?: No System Inflammatory Response Syndrome: Not Applicable Sepsis Protocol: For patient's 13 years and over: Temp is 96.8 and below OR 101 and greater Pulse >90 BPM Resp >20/minute Acutely Altered Mental Status Are patient's symptoms suggestive of a new infection, such as: -Pneumonia -Skin, Soft Tissue -Endocarditis -UTI -Bone, Joint Infection -Implantable Device -Acute Abdominal Infection -Wound Infection -Meningitis -Blood Stream Catheter Infection -Unknown GI Complaint Exam - Abdominal Pain Complaint/Exam Onset: Gradual Duration: several weeks Symptoms Are: Still present Timing: Constant Initial Severity: Mild Current Severity: Mild Location of Pain: Diffuse Character: Reports: Dull, Aching, Throbbing, Cramping Aggravating: Reports: None Alleviating: Reports: Spontaneous resolution Associated Signs and Symptoms: Denies: Diaphoresis, Fever, Cough, Chest pain, Dizziness, Back pain, Constipation, Blood in stool, Dysuria, Urinary frequency, Decreased urine output, Decreased appetite, Discharge, Nausea, Vomiting, Diarrhea, Decreased activity Abdominal Findings: Present: None Differential Diagnoses: Other Review of Systems - Review Of Systems Constitutional: Reports: No symptoms Eyes: Reports: No symptoms Ears, Nose, Mouth, Throat: Reports: No symptoms Respiratory: Reports: No symptoms Cardiac: Reports: No symptoms GI: Reports: Abdominal pain : Reports: No symptoms Musculoskeletal: Reports: No symptoms Skin: Reports: No symptoms Neurological: Reports: No symptoms Endocrine: Reports: No symptoms Hematologic/Lymphatic: Reports: No symptoms All Other Systems: Reviewed and Negative Past Medical History - Past Medical History Previously Healthy: Yes Endocrine: Reports: Hypothyroid, Dyslipidemia Cardiovascular: Reports: None Respiratory: Reports: None Hematological: Reports: None Gastrointestinal: Reports: GERD, Crohn's, Pancreatitis Genitourinary: Reports: Kidney stones Neuro/Psych: Reports: Depression Musculoskeletal: Reports: None Cancer: Reports: None Other Pertinent Past Medical History: Hypokalemia - Surgical History General Surgical History: Reports: Other (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, INTESTINAL RESECTION) - Family History Family History: Reports: Unknown - Social History Smoking Status: Never smoker Hx Substance Use: No Alcohol Screening: None - Immunizations Influenza Vaccine within 12 Months: Yes Pneumococcal Vaccine up to Date: Yes Physical Exam - Physical Exam Appearance: Well-appearing, No pain distress, Well-nourished Pain Distress: Mild Eyes: DISHA, EOMI, Conjunctiva clear ENT: Ears normal, Nose normal, Oropharynx normal Neck: Supple Respiratory: Airway patent, Breath sounds clear, Breath sounds equal, Respirations nonlabored Cardiovascular: RRR, Pulses normal, No rub, No murmur GI/: Soft, Hepatomegaly Musculoskeletal: Normal strength, ROM intact, No edema, No calf tenderness Skin: Warm, Dry, Normal color Neurological: Sensation intact, Motor intact, Reflexes intact, Cranial nerves intact, Alert, Oriented Psychiatric: Affect appropriate, Mood appropriate Critical Care Note - Critical Care Note Total Time (mins): 0 Course - Course Orders, Labs, Meds: his pAin is the same is it always is--he has no "red flag" symptoms of fever, vomiting or blood in the stool.. Departure - Departure Time of Disposition: 19:50 Disposition: HOME SELF-CARE Discharge Problem: Chronic abdominal pain Instructions: Chronic Abdominal Pain (ED) Condition: Good Pt referred to PMD for follow-up: Yes IPMP verified?: No Additional Instructions: ultram 50mg q 6hrs prn viraj #15--f/u wt pcp Allergies/Adverse Reactions: Allergies No Known Allergies Allergy (Verified 03/06/18 21:24) Home Medications: Ambulatory Orders Potassium Chloride [K-Dur] 40 meq PO BID 30 Days #60 tab 10/05/17 Ciprofloxacin 500 mg PO 1-2XD #14 ml NS 03/06/18 Citalopram Hydrobromide [Celexa] 40 mg PO DAILY 03/06/18 Dextroamphetamine/Amphetamine [Adderall 20 mg Tablet] 20 mg PO BID 03/06/18 Phenazopyridine HCl [Pyridium] 200 mg PO 1-2XD 7 Days #14 tablet 03/06/18 Zolpidem Tartrate [Ambien] 10 mg PO BEDTIME 03/06/18 Disposition Discussed With: Patient
[2018-03-13 19:51] VITALS: BP 125/85; TEMP 98.8; BMI 24.6
== END 2018-03-13 19:59 | disposition home or self-care (01) ==
LOC: ED 19:45
DX: R10.9 Unspecified abdominal pain (principal); G89.29 Other chronic pain; Z87.19 Personal history of other diseases of the digestive system
CPT/HCPCS: 99282

== ENCOUNTER 2018-03-26 09:11 | Emergency (ER) | payer MEDICAID, OTHER ==
[2018-03-26 09:14] VITALS: BP 117/76; TEMP 98.8; BMI 24.5
[2018-03-26] MEDS ORDERED: ZOFRAN 4 MG/2 ML IVP STA (09:26)
[2018-03-26] MEDS ORDERED: SODIUM CHLORIDE 1,000 ML IV STA (09:26)
--- NOTE | 2018-03-26 09:29 | ED.PDOC ---
General ED Provider: Dr. URMILA TRAMMELL Chief Complaint: Nausea/Vomiting Stated Complaint: nausea and vomiting with diarrhea for the last 2 days. Last Remacaid infusion was 2 weeks ago for his Crohn's disease. Time Seen by Physician: 09:27 Mode of Arrival: Walk-In Information Source: Patient Exam Limitations: No limitations Nursing and Triage Documentation Reviewed and Agree: Yes Does patient meet sepsis criteria?: No If yes, has appropriate treatment been initiated?: No System Inflammatory Response Syndrome: Pulse >90 BPM Sepsis Protocol: For patient's 13 years and over: Temp is 96.8 and below OR 101 and greater Pulse >90 BPM Resp >20/minute Acutely Altered Mental Status Are patient's symptoms suggestive of a new infection, such as: -Pneumonia -Skin, Soft Tissue -Endocarditis -UTI -Bone, Joint Infection -Implantable Device -Acute Abdominal Infection -Wound Infection -Meningitis -Blood Stream Catheter Infection -Unknown GI Complaint Exam - Vomiting/Diarrhea Complaint/Exam Onset/Duration: 2 days Symptoms Are: Still present Episodes of Vomiting over last 24 Hours: 7 Episodes of Diarrhea Over Last 24 Hours: 12 Initial Severity: Moderate Current Severity: Moderate Character of Vomiting: Reports: Non-bilious Character of Diarrhea: Reports: Watery Aggravating: Reports: Food Alleviating: Reports: NPO Associated Signs and Symptoms: Denies: Dizziness, Light-headedness, Melena, Hematemesis, Fever, Abdominal pain, Cramping Related History: Reports: Similar episode Last Oral Intake: prior to arrival Last Bowel Movement: Prior to arrival Non-GI Risk Factors: Reports: None Surgical Obstruction Risk Factors: Reports: None Related Surgical History: Reports: None Abdominal Findings: Present: None Differential Diagnoses: Cholelithiasis, Gastritis, Viral Gastroenteritis, Pancreatitis Review of Systems - Review Of Systems Constitutional: Reports: No symptoms Eyes: Reports: No symptoms Ears, Nose, Mouth, Throat: Reports: No symptoms Respiratory: Reports: No symptoms Cardiac: Reports: No symptoms GI: Reports: Diarrhea, Nausea, Poor appetite, Poor fluid intake, Vomiting : Reports: No symptoms Musculoskeletal: Reports: No symptoms Skin: Reports: No symptoms Neurological: Reports: No symptoms Endocrine: Reports: No symptoms Hematologic/Lymphatic: Reports: No symptoms All Other Systems: Reviewed and Negative Past Medical History - Past Medical History Previously Healthy: Yes Endocrine: Reports: Hypothyroid, Dyslipidemia Cardiovascular: Reports: None Respiratory: Reports: None Hematological: Reports: None Gastrointestinal: Reports: GERD, Crohn's, Pancreatitis Genitourinary: Reports: Kidney stones Neuro/Psych: Reports: Depression Musculoskeletal: Reports: None Cancer: Reports: None Other Pertinent Past Medical History: Hypokalemia - Surgical History General Surgical History: Reports: Other (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, INTESTINAL RESECTION) - Family History Family History: Reports: Unknown - Social History Smoking Status: Never smoker Hx Substance Use: No Alcohol Screening: None - Immunizations Influenza Vaccine within 12 Months: Yes Pneumococcal Vaccine up to Date: Yes Physical Exam - Physical Exam Appearance: Ill-appearing Ill-appearing: Mild Pain Distress: Mild ENT: Oropharynx normal Neck: Supple Respiratory: Airway patent Cardiovascular: Pulses normal, No rub, No murmur, Tachycardia GI/: Soft, Nontender, No masses, No Organomegaly, Bowel sounds hyperactive Musculoskeletal: Normal strength, ROM intact, No edema, No calf tenderness Skin: Warm, Dry, Normal color Neurological: Motor intact, Alert, Oriented Psychiatric: Affect appropriate, Mood appropriate Critical Care Note - Critical Care Note Total Time (mins): 0 Course - Course Hematology/Chemistry: 03/26/18 09:35 03/26/18 09:35 Orders, Labs, Meds: Lab Review 03/26/18 03/26/18 09:35 09:35 WBC 7.60 RBC 4.42 L Hgb 13.2 L Hct 37.6 L MCV 85.1 MCH 29.9 MCHC 35.1 RDW Coeff of Svitlana 11.8 Plt Count 238 Immature Gran % (Auto) 0.4 Neut % (Auto) 58.5 Lymph % (Auto) 30.0 [place] % (Auto) 8.2 Eos % (Auto) 2.6 Baso % (Auto) 0.3 Immature Gran # (Auto) 0.0 Neut # (Auto) 4.5 Lymph # (Auto) 2.3 [place] # (Auto) 0.6 Eos # (Auto) 0.2 Baso # (Auto) 0.0 Sodium 137.1 Potassium 3.63 Chloride 103.3 Carbon Dioxide 25.8 Anion Gap 11.63 BUN 9.3 Creatinine 1.12 H Estimated GFR (MDRD) 75.00 BUN/Creatinine Ratio 8.30 Glucose 87.2 Calcium 9.52 Total Bilirubin 0.36 AST 36.7 ALT 47.4 Alkaline Phosphatase 92.0 Total Protein 7.98 Albumin 4.52 Globulin 3.46 Albumin/Globulin Ratio 1.30 Amylase 104.8 Lipase 182.8 Orders Category Date Time Status ED IV/MEDIPORT/POWERPORT .ONCE EMERGENCY 03/26/18 09:26 Active AMYLASE Stat LAB 03/26/18 09:35 Received CBC W/ AUTO DIFF Stat LAB 03/26/18 09:35 Completed COMPREHENSIVE METABOLIC PANEL Stat LAB 03/26/18 09:35 Received LIPASE Stat LAB 03/26/18 09:35 Received URINALYSIS C & S IF INDICATED Stat LAB 03/26/18 09:26 Uncollected 0.9 % Sodium Chloride [Saline Flush] MEDS 03/26/18 09:26 Active 1 syr IVF PRN PRN Ondansetron HCl/Pf [Zofran 4 mg/2 ml] MEDS 03/26/18 09:26 Discontinued 4 mg IVP ONCE STA Sodium Chloride 0.9% [Sodium Chloride] 1,000 ml MEDS 03/26/18 09:26 Active IV BOLUS Medications Generic Name Dose Route Start Last Admin Trade Name Freq PRN Reason Stop Dose Admin Sodium Chloride 1,000 mls @ 1,000 mls/hr 03/26/18 09:26 03/26/18 09:49 Sodium Chloride IV 03/26/18 10:25 1,000 mls/hr BOLUS STA Administration Sodium Chloride 1 syr 03/26/18 09:26 03/26/18 09:49 Saline Flush IVF 1 syr PRN PRN Administration To flush IV Discontinued Medications Generic Name Dose Route Start Last Admin Trade Name Freq PRN Reason Stop Dose Admin Ondansetron HCl 4 mg 03/26/18 09:26 03/26/18 09:49 Zofran 4 Mg/2 Ml IVP 03/26/18 09:27 4 mg ONCE STA Administration Vital Signs: Temp Pulse Resp BP Pulse Ox 03/26/18 09:11 98.8 F 115 H 18 117/76 99 Departure - Departure Time of Disposition: 10:30 Disposition: HOME SELF-CARE Discharge Problem: Nausea vomiting and diarrhea, Gastroenteritis Instructions: Gastroenteritis (ED) Condition: Stable Pt referred to PMD for follow-up: Yes IPMP verified?: No Additional Instructions: Push fluids take medications as needed for nausea and diarrhea. Follow up with your PCP in 3 days Prescriptions: Ondansetron HCl [Zofran Tab] 4 mg PO Q8H PRN #14 tablet PRN Reason: Nausea / Vomiting Allergies/Adverse Reactions: Allergies No Known Allergies Allergy (Verified 03/26/18 09:15) Home Medications: Ambulatory Orders Potassium Chloride [K-Dur] 40 meq PO BID 30 Days #60 tab 10/05/17 Dextroamphetamine/Amphetamine [Adderall 20 mg Tablet] 20 mg PO BID 03/06/18 Zolpidem Tartrate [Ambien] 10 mg PO BEDTIME 03/06/18 Doxepin HCl 10 mg PO BEDTIME PRN 03/13/18 Infliximab [Remicade] 100 mg IV DIRECTED 03/13/18 Ondansetron HCl [Zofran Tab] 4 mg PO Q8H PRN #14 tablet 03/26/18 Disposition Discussed With: Patient, Family
== END 2018-03-26 10:52 | disposition home or self-care (01) ==
LOC: ED 09:11
DX: K52.9 Noninfective gastroenteritis and colitis, unspecified (principal); K50.90 Crohn's disease, unspecified, without complications; Z79.899 Other long term (current) drug therapy
CPT/HCPCS: 36415; 80053; 82150; 83690; 85025; 96361; 96374; 99283

== ENCOUNTER 2018-03-29 17:39 | Emergency (ER) ==
[2018-03-29 17:45] VITALS: BP 121/84; TEMP 98.1; BMI 24.2
--- NOTE | 2018-03-29 18:21 | ED.PDOC ---
General ED Provider: Dr. JULEE GONZALEZ-ER Chief Complaint: Head Laceration Stated Complaint: i was hit on scalp by a cable---i did not get knocked out Time Seen by Physician: 18:19 Mode of Arrival: Walk-In Information Source: Patient Nursing and Triage Documentation Reviewed and Agree: No (he denies loc) Does patient meet sepsis criteria?: No System Inflammatory Response Syndrome: Not Applicable Sepsis Protocol: For patient's 13 years and over: Temp is 96.8 and below OR 101 and greater Pulse >90 BPM Resp >20/minute Acutely Altered Mental Status Are patient's symptoms suggestive of a new infection, such as: -Pneumonia -Skin, Soft Tissue -Endocarditis -UTI -Bone, Joint Infection -Implantable Device -Acute Abdominal Infection -Wound Infection -Meningitis -Blood Stream Catheter Infection -Unknown Skin Complaint Exam - Laceration/Head/Facial Complaint/Exam Location of Injury: Forehead Mechanism of Injury: Laceration Onset/Duration: 1 hfr Symptoms Are: Still present Initial Severity: Mild Current Severity: Mild Aggravating: Movement Alleviating: Compression Associated Signs and Symptoms: Denies: Fever, Chills, Erythema, Numbness, Tingling Differential Diagnoses: Laceration Review of Systems - Review Of Systems Constitutional: Reports: No symptoms Eyes: Reports: No symptoms Ears, Nose, Mouth, Throat: Reports: No symptoms Respiratory: Reports: No symptoms Cardiac: Reports: No symptoms GI: Reports: No symptoms : Reports: No symptoms Musculoskeletal: Reports: No symptoms Skin: Reports: No symptoms Neurological: Reports: No symptoms Endocrine: Reports: No symptoms Hematologic/Lymphatic: Reports: No symptoms All Other Systems: Reviewed and Negative Past Medical History - Past Medical History Previously Healthy: Yes Endocrine: Reports: Hypothyroid, Dyslipidemia Cardiovascular: Reports: None Respiratory: Reports: None Hematological: Reports: None Gastrointestinal: Reports: GERD, Crohn's, Pancreatitis Genitourinary: Reports: Kidney stones Neuro/Psych: Reports: Depression Musculoskeletal: Reports: None Cancer: Reports: None Other Pertinent Past Medical History: Hypokalemia - Surgical History General Surgical History: Reports: Other (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, INTESTINAL RESECTION) - Family History Family History: Reports: Unknown - Social History Smoking Status: Never smoker Hx Substance Use: No Alcohol Screening: None - Immunizations Tetanus Shot up to Date: Yes (2-3 years ago) Influenza Vaccine within 12 Months: Yes Pneumococcal Vaccine up to Date: Yes Physical Exam - Physical Exam Appearance: Well-appearing Eyes: DISHA, EOMI, Conjunctiva clear ENT: Ears normal, Nose normal, Oropharynx normal Neck: Supple Respiratory: Airway patent, Breath sounds clear, Breath sounds equal, Respirations nonlabored Cardiovascular: RRR GI/: Soft, Nontender, No masses, Bowel sounds normal, No Organomegaly Musculoskeletal: Normal strength Skin: Warm, Dry, Normal color Neurological: Sensation intact Psychiatric: Affect appropriate, Mood appropriate Procedures - Laceration/Wound Repair No standard instances Wound Description: Linear Wound Length (cm): 0.5cm Wound Explored: Clean Wound Irrigated: No Wound Prep: Saline Wound Repaired With: Steri-strips Layer Closure?: No Sterile Dressing Applied?: Yes Splint Applied?: No Sling Applied?: No Critical Care Note - Critical Care Note Total Time (mins): 0 Course - Course Vital Signs: Temp Pulse Resp BP Pulse Ox 03/29/18 17:40 98.1 F 117 H 20 121/84 98 Departure - Departure Time of Disposition: 18:21 Disposition: HOME SELF-CARE Discharge Problem: Closed head injury Qualifiers: Encounter type: initial encounter Qualified Code(s): S09.90XA - Unspecified injury of head, initial encounter Instructions: Head Injury (ED) Condition: Good Pt referred to PMD for follow-up: No IPMP verified?: No Additional Instructions: keep wound clean and dry--return if any vomiting or change in mental status or signs of infection Allergies/Adverse Reactions: Allergies No Known Allergies Allergy (Verified 03/29/18 17:45) Home Medications: Ambulatory Orders Potassium Chloride [K-Dur] 40 meq PO BID 30 Days #60 tab 10/05/17 Dextroamphetamine/Amphetamine [Adderall 20 mg Tablet] 20 mg PO BID 03/06/18 Zolpidem Tartrate [Ambien] 10 mg PO BEDTIME 03/06/18 Infliximab [Remicade] 100 mg IV DIRECTED 03/13/18 Ondansetron HCl [Zofran Tab] 4 mg PO Q8H PRN #14 tablet 03/26/18 Citalopram Hydrobromide [Celexa] 20 mg PO DAILY 03/29/18 Disposition Discussed With: Patient
== END 2018-03-29 18:28 | disposition home or self-care (01) ==
LOC: ED 17:39
DX: S01.81XA Laceration without foreign body of other part of head, initial encounter (principal); W22.8XXA Striking against or struck by other objects, initial encounter
CPT/HCPCS: 99283

== ENCOUNTER 2018-04-01 16:32 | Emergency (ER) ==
[2018-04-01 16:36] VITALS: BP 108/81; TEMP 98.5; BMI 22.9
[2018-04-01] MEDS ORDERED: ASPIRIN CHEWABLE PO STA (16:43)
--- NOTE | 2018-04-01 17:14 | DI ---
EXAM: Portable chest HISTORY: Left-sided chest pain COMPARISON: Single-view chest 02/02/2017 FINDINGS: The cardiomediastinal is normal. The lungs are clear bilaterally. No osseous abnormaliti es are identified. IMPRESSION: No evidence of active pulmonary disease.
--- NOTE | 2018-04-01 18:33 | CT ---
EXAM: CT scan chest without contrast HISTORY: Left-sided pain COMPARISON: None. FINDINGS: Contiguous axial images obtained through the chest without contrast utilizing 5-mm collima tion. Sagittal and coronal reconstructions were imaged and reviewed.. The thoracic inlet is unremar kable. There are subcentimeter pretracheal lymph nodes. The heart is normal in size without pericar dial effusion. There is a calcified granuloma at the left lung base. There is no evidence of consol idation or effusion.. Bone window reveals no evidence of lytic or blastic lesions. IMPRESSION: No acute intrathoracic findings.
--- NOTE | 2018-04-01 18:54 | ED.PDOC ---
General ED Provider: Dr. SHARAN MCHUGH Chief Complaint: Chest Pain Stated Complaint: chest pain Time Seen by Physician: 16:33 (seen with opal on arrival at 18:50 with susu ni [facility]) Mode of Arrival: Walk-In Information Source: Patient Exam Limitations: No limitations Nursing and Triage Documentation Reviewed and Agree: Yes Does patient meet sepsis criteria?: No System Inflammatory Response Syndrome: Not Applicable Sepsis Protocol: For patient's 13 years and over: Temp is 96.8 and below OR 101 and greater Pulse >90 BPM Resp >20/minute Acutely Altered Mental Status Are patient's symptoms suggestive of a new infection, such as: -Pneumonia -Skin, Soft Tissue -Endocarditis -UTI -Bone, Joint Infection -Implantable Device -Acute Abdominal Infection -Wound Infection -Meningitis -Blood Stream Catheter Infection -Unknown Cardiovascular Complaint Exam - Chest Pain Complaint/Exam Onset: Gradual Duration: today chest pain at work Symptoms Are: Resolved Timing: Constant Length of Chest Pain Episodes: Initial Severity: Moderate Current Severity: Mild Location: Reports: Midsternal Pain Radiates: Reports: Left shoulder, Left arm, Jaw, Neck. Denies: Back, Right shoulder, Right arm Character: Reports: Aching, Tightness Aggravating: Reports: Exertion, Movement. Denies: Deep breaths Alleviating: Reports: Rest, Upright position, Spontaneous resolution Associated Signs and Symptoms: Reports: Cough. Denies: Diaphoresis, Nausea, Vomiting, Fever, Palpitations, Hemoptysis, Back pain, Abdominal pain, Dizziness , Short of air, Calf pain, Calf swelling Related History: Reports: Other (dyslipidemia ) Related Surgical History: Reports: None History of Healthcare-Acquired Pneumonia: Reports: No AMI/ACS Risk Factors: Reports: None TAD Risk Factors: Reports: None Pulmonary Embolism Risk Factors: Reports: None Prior Care for this Complaint: No Recent Stress Test: No Recent Echo/LV Function: No Subcutaneous Emphysema Present: No Diminshed Breath Sounds: No Reproducible Chest Wall Pain: No Bilateral Pulses Present: Yes Unequal Pulses Noted: No If Risk Factors for AMI/ACS Consider: EKG, Cardiac Enzymes Differential Diagnoses: ACS, Unstable Angina, CHF, Chest Wall Pain, GI Diseasae Quality Indicators For Acute IA or Cardiac Chest Pain: EKG in 10min. Quality Indicator For Non-Traumatic Chest Pain/Syncope: EKG Performed Review of Systems - Review Of Systems Constitutional: Reports: No symptoms Eyes: Reports: No symptoms Ears, Nose, Mouth, Throat: Reports: No symptoms Respiratory: Reports: No symptoms Cardiac: Reports: Chest pain GI: Reports: No symptoms : Reports: No symptoms Musculoskeletal: Reports: No symptoms Skin: Reports: No symptoms Neurological: Reports: No symptoms Endocrine: Reports: No symptoms Hematologic/Lymphatic: Reports: No symptoms All Other Systems: Reviewed and Negative Past Medical History - Past Medical History Previously Healthy: Yes Endocrine: Reports: Hypothyroid, Dyslipidemia Cardiovascular: Reports: None Respiratory: Reports: None Hematological: Reports: None Gastrointestinal: Reports: GERD, Crohn's, Pancreatitis Genitourinary: Reports: Kidney stones Neuro/Psych: Reports: Depression Musculoskeletal: Reports: None Cancer: Reports: None Other Pertinent Past Medical History: Hypokalemia - Surgical History General Surgical History: Reports: Other (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, INTESTINAL RESECTION) - Family History Family History: Reports: Unknown - Social History Smoking Status: Never smoker Hx Substance Use: No Alcohol Screening: None - Immunizations Tetanus Shot up to Date: No Influenza Vaccine within 12 Months: Yes Pneumococcal Vaccine up to Date: Yes Physical Exam - Physical Exam Appearance: Well-appearing, No pain distress, Well-nourished Eyes: DISHA, EOMI, Conjunctiva clear ENT: Ears normal, Nose normal, Oropharynx normal Respiratory: Airway patent, Breath sounds clear, Breath sounds equal, Respirations nonlabored Cardiovascular: RRR, Pulses normal, No rub, No murmur GI/: Soft, Nontender, No masses, Bowel sounds normal, No Organomegaly Musculoskeletal: Normal strength, ROM intact, No edema, No calf tenderness Skin: Warm, Dry, Normal color Neurological: Sensation intact, Motor intact, Reflexes intact, Cranial nerves intact, Alert, Oriented Psychiatric: Affect appropriate, Mood appropriate Interpretation - Radiology Interpretation Radiology Interpretation By: Radiologist Radiology Results: No acute changes Exam Interpreted: CT Scan - Claims Representative Rate: Tachy Rhythm: Sinus - EKG Interpretation Rate: Tachy (incompelte R.B.B.B) Rhythm: Sinus Re-Evaluation - Re-Evaluation Time of Re-Evaluation: 17:00 (denied trauma ) Vital Signs Stable: Yes Pain Level: 3/10 Appearance: NAD Lungs: Clear Skin: Warm and Dry Neuro: Alert and Oriented X3 CV: RRR - Re-Evaluation Time of Re-Evaluation: 18:56 Status: Unchanged, Improved Vital Signs Stable: Yes Appearance: NAD Skin: Warm and Dry Neuro: Alert and Oriented X3 CV: RRR Physician Notification - Case Discussed Physician Notified: SHARRI DUVALL Time of Notification: 18:59 (DISCUSSED TRANSFER WITH SUSU IN THE ROOM PT AGREES WITH THE TRANSFER ) Critical Care Note - Critical Care Note Total Time (mins): 60 Course - Course Hematology/Chemistry: 04/01/18 16:57 04/01/18 16:57 Orders, Labs, Meds: Lab Review 04/01/18 04/01/18 04/01/18 16:57 16:57 16:57 WBC 7.70 RBC 4.03 L Hgb 12.2 L Hct 34.4 L MCV 85.4 MCH 30.3 MCHC 35.5 H RDW Coeff of Svitlana 11.9 Plt Count 269 Immature Gran % (Auto) 0.4 Neut % (Auto) 60.9 Lymph % (Auto) 27.3 Meagher % (Auto) 10.0 Eos % (Auto) 1.3 Baso % (Auto) 0.1 Immature Gran # (Auto) 0.0 Neut # (Auto) 4.7 Lymph # (Auto) 2.1 Meagher # (Auto) 0.8 Eos # (Auto) 0.1 Baso # (Auto) 0.0 PT 10.3 INR 1.03 APTT 28.0 Sodium 135.2 Potassium 3.57 Chloride 97.3 L Carbon Dioxide 29.1 Anion Gap 12.37 BUN 12.2 Creatinine 1.08 Estimated GFR (MDRD) 78.00 BUN/Creatinine Ratio 11.29 Glucose 93.1 Calcium 9.66 Total Bilirubin 0.62 AST 35.0 ALT 46.3 Alkaline Phosphatase 107.2 Total Creatine Kinase 179.5 H CK-MB (CK-2) 2.190 CK-MB (CK-2) % 1.2200 Troponin I < 0.012 Total Protein 7.87 Albumin 4.60 Globulin 3.27 Albumin/Globulin Ratio 1.40 Urine Opiates Screen Ur Oxycodone Screen Urine Methadone Screen Ur Propoxyphene Screen Ur Barbiturates Screen U Tricyclic Antidepress Ur Phencyclidine Scrn Ur Amphetamine Screen U Methamphetamines Scrn U Benzodiazepines Scrn Urine Cocaine Screen U Cannabinoids Screen 04/01/18 17:55 WBC RBC Hgb Hct MCV MCH MCHC RDW Coeff of Svitlana Plt Count Immature Gran % (Auto) Neut % (Auto) Lymph % (Auto) Meagher % (Auto) Eos % (Auto) Baso % (Auto) Immature Gran # (Auto) Neut # (Auto) Lymph # (Auto) Meagher # (Auto) Eos # (Auto) Baso # (Auto) PT INR APTT Sodium Potassium Chloride Carbon Dioxide Anion Gap BUN Creatinine Estimated GFR (MDRD) BUN/Creatinine Ratio Glucose Calcium Total Bilirubin AST ALT Alkaline Phosphatase Total Creatine Kinase CK-MB (CK-2) CK-MB (CK-2) % Troponin I Total Protein Albumin Globulin Albumin/Globulin Ratio Urine Opiates Screen Positive Ur Oxycodone Screen Negative Urine Methadone Screen Negative Ur Propoxyphene Screen Negative Ur Barbiturates Screen Negative U Tricyclic Antidepress Negative Ur Phencyclidine Scrn Negative Ur Amphetamine Screen Positive U Methamphetamines Scrn Negative U Benzodiazepines Scrn Negative Urine Cocaine Screen Negative U Cannabinoids Screen Negative Orders Category Date Time Status EKG-(ED ONLY) Stat CARDIO 04/01/18 16:42 Completed EKG-(ED ONLY) Stat CARDIO 04/01/18 17:57 Completed ED IV/MEDIPORT/POWERPORT .ONCE EMERGENCY 04/01/18 16:42 Inactive CBC W/ AUTO DIFF Stat LAB 04/01/18 16:57 Completed COMPREHENSIVE METABOLIC PANEL Stat LAB 04/01/18 16:57 Completed CREATINE KINASE Stat LAB 04/01/18 16:57 Completed D-DIMER Stat LAB 04/01/18 Ordered PARTIAL THROMBOPLASTIN TIME Stat LAB 04/01/18 16:57 Completed PT WITH INR Stat LAB 04/01/18 16:57 Completed TROPONIN I Stat LAB 04/01/18 16:57 Completed URINE DRUG SCREEN (RAPID FOR ED) [DRUG SCREEN, URINE, LAB 04/01/18 17:55 Completed RAPID] Stat 0.9 % Sodium Chloride [Saline Flush] MEDS 04/01/18 16:42 Active 1 syr IVF PRN PRN Aspirin [Aspirin Chewable] MEDS 04/01/18 16:43 Discontinued 324 mg PO ONCE STA CHEST, 1V AP ONLY Stat RADS 04/01/18 16:[address] CHEST W/O CONTRAST Stat RADS 04/01/18 17:58 Completed Medications Generic Name Dose Route Start Last Admin Trade Name Freq PRN Reason Stop Dose Admin Sodium Chloride 1 syr 04/01/18 16:42 Saline Flush IVF PRN PRN To flush IV Discontinued Medications Generic Name Dose Route Start Last Admin Trade Name Freq PRN Reason Stop Dose Admin Aspirin 324 mg 04/01/18 16:43 04/01/18 17:09 Aspirin Chewable PO 04/01/18 16:44 324 mg ONCE STA Administration Vital Signs: Temp Pulse Resp BP Pulse Ox 04/01/18 16:32 98.5 F 95 H 20 108/81 100 BETHANY Risk Score BETHANY Risk Score: Risk Score Odds of by 30D 0 0.1 (0.1-0.2) 1 0.3 (0.2-0.3) 2 0.4 (0.3-0.5) 3 0.7 (0.6-0.9) 4 1.2 (1.0-1.5) 5 2.2 (1.9-2.6) 6 3.0 (2.5-3.6) 7 4.8 (3.8-6.1) Departure - Departure Time of Disposition: 19:00 Disposition: TSF SHORT-TRM HOSP Discharge Problem: Chest pain Instructions: Chest Pain (ED) Condition: Good Pt referred to PMD for follow-up: Yes IPMP verified?: No Additional Instructions: Please call your Family Physician as soon as possible to schedule a follow-up appointment. Allergies/Adverse Reactions: Allergies No Known Allergies Allergy (Verified 04/01/18 16:36) Home Medications: Ambulatory Orders Potassium Chloride [K-Dur] 40 meq PO BID 30 Days #60 tab 10/05/17 Dextroamphetamine/Amphetamine [Adderall 20 mg Tablet] 20 mg PO BID 03/06/18 Zolpidem Tartrate [Ambien] 10 mg PO BEDTIME 03/06/18 Infliximab [Remicade] 100 mg IV DIRECTED 03/13/18 Ondansetron HCl [Zofran Tab] 4 mg PO Q8H PRN #14 tablet 03/26/18 Citalopram Hydrobromide [Celexa] 20 mg PO DAILY 03/29/18
== END 2018-04-01 19:30 | disposition short-term general hospital (02) ==
LOC: ED 16:32
DX: R07.9 Chest pain, unspecified (principal); E78.5 Hyperlipidemia, unspecified; E03.9 Hypothyroidism, unspecified; Z87.19 Personal history of other diseases of the digestive system; Z79.899 Other long term (current) drug therapy
CPT/HCPCS: 36415; 80053; 80306; 82550; 82553; 84484; 85025; 85379; 85610; 85730; 93005; 93010; 99285

== ENCOUNTER 2018-04-01 19:21 | Outpatient (CLI) ==
[2018-04-01 16:36] VITALS: BMI 22.9
== END 2018-04-01 19:58 | disposition short-term general hospital (02) ==
LOC: AMBL 19:21
PROVIDERS: ATTEND Internal Medicine
DX: R07.9 Chest pain, unspecified (principal); R20.0 Anesthesia of skin; R00.0 Tachycardia, unspecified

== ENCOUNTER 2018-04-14 13:36 | Emergency (ER) ==
[2018-04-14 13:41] VITALS: TEMP 99.2; BMI 24.6
[2018-04-14 13:44] VITALS: BP 126/79
--- NOTE | 2018-04-14 16:58 | ED.PDOC ---
General ED Provider: Dr. JULEE ACE Chief Complaint: Abdominal Pain Stated Complaint: Abdominal pain. Chroninc discomfort due to IBS/. Feels dry and concerned about his Potassium Time Seen by Physician: 17:00 Mode of Arrival: Walk-In Information Source: Patient Exam Limitations: No limitations Nursing and Triage Documentation Reviewed and Agree: Yes Does patient meet sepsis criteria?: No System Inflammatory Response Syndrome: Not Applicable Sepsis Protocol: For patient's 13 years and over: Temp is 96.8 and below OR 101 and greater Pulse >90 BPM Resp >20/minute Acutely Altered Mental Status Are patient's symptoms suggestive of a new infection, such as: -Pneumonia -Skin, Soft Tissue -Endocarditis -UTI -Bone, Joint Infection -Implantable Device -Acute Abdominal Infection -Wound Infection -Meningitis -Blood Stream Catheter Infection -Unknown GI Complaint Exam - Abdominal Pain Complaint/Exam Onset: Gradual Symptoms Are: Still present Timing: Intermittent Initial Severity: Moderate Current Severity: Moderate Location of Pain: Discrete, RLQ, LLQ Radiates To: Denies: Chest Character: Reports: Dull, Aching Aggravating: Reports: None Alleviating: Reports: Medication Related History: Reports: Similar episode AAA Risk Factors: Reports: None Cardiac Risk Factors: Reports: None Testicular Torsion Risk Factors: Reports: None Surgical Obstruction Risk Factors: Reports: None Related Surgical History: Reports: None Abdominal Findings: Present: None Genitalia Exam: Absent: Normal findings Rectal Exam: Absent: Normal Findings Differential Diagnoses: Other (IBS;) Review of Systems - Review Of Systems Constitutional: Reports: No symptoms Eyes: Reports: No symptoms Ears, Nose, Mouth, Throat: Reports: No symptoms Respiratory: Reports: No symptoms Cardiac: Reports: No symptoms GI: Reports: Abdominal pain, Diarrhea : Reports: No symptoms Musculoskeletal: Reports: No symptoms Skin: Reports: No symptoms Neurological: Reports: No symptoms Endocrine: Reports: No symptoms Hematologic/Lymphatic: Reports: No symptoms All Other Systems: Reviewed and Negative Past Medical History - Past Medical History Previously Healthy: Yes Endocrine: Reports: Hypothyroid, Dyslipidemia Cardiovascular: Reports: None Respiratory: Reports: None Hematological: Reports: None Gastrointestinal: Reports: GERD, Crohn's, Pancreatitis Genitourinary: Reports: Kidney stones Neuro/Psych: Reports: Depression Musculoskeletal: Reports: None Cancer: Reports: None Other Pertinent Past Medical History: Hypokalemia - Surgical History General Surgical History: Reports: Other (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, INTESTINAL RESECTION) - Family History Family History: Reports: Unknown - Social History Smoking Status: Never smoker Hx Substance Use: No Alcohol Screening: None - Immunizations Influenza Vaccine within 12 Months: Yes Pneumococcal Vaccine up to Date: Yes Physical Exam - Physical Exam Appearance: Well-appearing Ill-appearing: None Pain Distress: None Eyes: DISHA, EOMI, Conjunctiva clear ENT: Ears normal, Nose normal, Oropharynx normal Neck: Supple Respiratory: Airway patent, Breath sounds clear, Breath sounds equal, Respirations nonlabored Cardiovascular: RRR, Pulses normal, No rub, No murmur GI/: Soft, Nontender, No masses, Bowel sounds normal, No Organomegaly Musculoskeletal: Normal strength, ROM intact, No edema, No calf tenderness Skin: Warm, Dry, Normal color Neurological: Sensation intact, Motor intact, Reflexes intact, Cranial nerves intact, Alert, Oriented Psychiatric: Affect appropriate, Mood appropriate Critical Care Note - Critical Care Note Total Time (mins): 0 Course - Course Hematology/Chemistry: 04/14/18 17:13 04/14/18 17:13 Orders, Labs, Meds: Lab Review 04/14/18 04/14/18 17:13 17:13 WBC 10.72 H RBC 4.47 L Hgb 13.4 L Hct 38.0 L MCV 85.0 MCH 30.0 MCHC 35.3 RDW Coeff of Svitlana 12.1 Plt Count 279 Neutrophils % (Manual) 70.0 Lymphocytes % (Manual) 20.0 Monocytes % (Manual) 4.0 Eosinophils % (Manual) 2.0 Reactive Lymphocytes 4.0 Plt Morphology Comment Normal Anisocytosis Not present RBC Morph Comment Normal Sodium 141.2 Potassium 3.73 Chloride 102.8 Carbon Dioxide 27.0 Anion Gap 15.13 BUN 13.9 Creatinine 1.03 Estimated GFR (MDRD) 83.00 BUN/Creatinine Ratio 13.49 Glucose 92.0 Calcium 10.18 Magnesium 1.76 Total Bilirubin 0.86 AST 43.1 ALT 44.5 Alkaline Phosphatase 104.1 Total Protein 8.22 H Albumin 4.77 Globulin 3.45 Albumin/Globulin Ratio 1.38 Orders Category Date Time Status CBC W/ AUTO DIFF Stat LAB 04/14/18 17:13 Completed CMP [COMPREHENSIVE METABOLIC PANEL] Stat LAB 04/14/18 17:13 Completed MAGNESIUM Stat LAB 04/14/18 17:13 Completed MANUAL DIFFERENTIAL Stat LAB 04/14/18 17:13 Completed Vital Signs: Temp Pulse Resp BP Pulse Ox 04/14/18 13:37 99.2 F 100 H 20 126/79 98 Departure - Departure Time of Disposition: 18:00 Disposition: HOME SELF-CARE Discharge Problem: Chronic abdominal pain, IBS (irritable bowel syndrome) Instructions: Irritable Bowel Syndrome (ED) Condition: Good Pt referred to PMD for follow-up: Yes (1 WK) IPMP verified?: No Additional Instructions: REMAIN ON DIET DIRECTED FORCE FLUIDS TAKE ANALGESICS AND BENTYL NEEDED Allergies/Adverse Reactions: Allergies No Known Allergies Allergy (Verified 04/14/18 13:41) Home Medications: Ambulatory Orders Potassium Chloride [K-Dur] 40 meq PO BID 30 Days #60 tab 10/05/17 Zolpidem Tartrate [Ambien] 10 mg PO BEDTIME 03/06/18 Infliximab [Remicade] 100 mg IV DIRECTED 03/13/18 Ondansetron HCl [Zofran Tab] 4 mg PO Q8H PRN #14 tablet 03/26/18 Citalopram Hydrobromide [Celexa] 20 mg PO DAILY 03/29/18 Dicyclomine HCl [Bentyl] 10 mg PO 2-3XD PRN #30 capsule 04/14/18 Tramadol HCl 50 mg PO QID PRN #30 tablet 04/14/18
== END 2018-04-14 18:00 | disposition home or self-care (01) ==
LOC: ED 13:36
DX: R10.9 Unspecified abdominal pain (principal); G89.29 Other chronic pain; K58.9 Irritable bowel syndrome, unspecified
CPT/HCPCS: 36415; 80053; 83735; 85007; 85025; 99283

== ENCOUNTER 2018-05-01 16:20 | Emergency (ER) | payer MEDICAID, OTHER ==
[2018-05-01 16:24] VITALS: BP 119/81; TEMP 97.3; BMI 24.3
[2018-05-01] MEDS ORDERED: FLOMAX PO STA (16:37)
--- NOTE | 2018-05-01 16:37 | ED.PDOC ---
General ED Provider: Dr. JULEE ACE Chief Complaint: Kidney Stone Stated Complaint: PAIN IN LOWER ABDOMEN AND LT FLANK-"I PASSED A KIDNEY STONE AND THINK ANOTHER WILL PASS) CRAMPING IN [place] REGION Time Seen by Physician: 16:20 Mode of Arrival: Walk-In Information Source: Patient Exam Limitations: No limitations Nursing and Triage Documentation Reviewed and Agree: Yes Does patient meet sepsis criteria?: No If yes, has appropriate treatment been initiated?: No System Inflammatory Response Syndrome: Not Applicable Sepsis Protocol: For patient's 13 years and over: Temp is 96.8 and below OR 101 and greater Pulse >90 BPM Resp >20/minute Acutely Altered Mental Status Are patient's symptoms suggestive of a new infection, such as: -Pneumonia -Skin, Soft Tissue -Endocarditis -UTI -Bone, Joint Infection -Implantable Device -Acute Abdominal Infection -Wound Infection -Meningitis -Blood Stream Catheter Infection -Unknown Complaint Exam - Complaint/Exam Patient Complains of: Reports: Groin pain (SUPRAPUBIC PAIN -PASSED STONE) Symptoms Are: Still present (NOT PAINFUL) Initial Severity: Moderate Current Severity: Mild Location of Pain: Reports: Diffuse, Left, Suprapubic Character: Reports: Colicky, Cramping, Tearing Aggravating: Reports: None Alleviating: Reports: None Associated Signs and Symptoms: Reports: Back pain, Dysuria. Denies: Diaphoresis , Fever, Hematuria, Constipation, Blood in stool, Rectal pain, Appetite change, Nausea, Vomiting, Penile swelling, Penile discharge, Decreased urine output, Increased urine frequency, Increased thirst, Decreased activity, Lethargy, Scrotal pain, Scrotal swelling, Abdominal Pain Testicular Torsion Risk Factors: Reports: None Surgical Obstruction Risk Factors: Reports: None Related Surgical History: Reports: None Abdominal Findings: Present: None Differential Diagnoses: Ureteral Calculi Review of Systems - Review Of Systems Constitutional: Reports: No symptoms Eyes: Reports: No symptoms Ears, Nose, Mouth, Throat: Reports: No symptoms Respiratory: Reports: No symptoms Cardiac: Reports: No symptoms GI: Reports: No symptoms : Reports: Dysuria Musculoskeletal: Reports: No symptoms Skin: Reports: No symptoms Neurological: Reports: No symptoms Endocrine: Reports: No symptoms Hematologic/Lymphatic: Reports: No symptoms All Other Systems: Reviewed and Negative Past Medical History - Past Medical History Previously Healthy: Yes Endocrine: Reports: Hypothyroid, Dyslipidemia Cardiovascular: Reports: None Respiratory: Reports: None Hematological: Reports: None Gastrointestinal: Reports: GERD, Crohn's, Pancreatitis Genitourinary: Reports: Kidney stones Neuro/Psych: Reports: Depression Musculoskeletal: Reports: None Cancer: Reports: None Other Pertinent Past Medical History: Hypokalemia - Surgical History General Surgical History: Reports: Other (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, INTESTINAL RESECTION) - Family History Family History: Reports: Unknown - Social History Smoking Status: Never smoker Hx Substance Use: No Alcohol Screening: None - Immunizations Tetanus Shot up to Date: Yes Influenza Vaccine within 12 Months: Yes Pneumococcal Vaccine up to Date: Yes Physical Exam - Physical Exam Appearance: Well-appearing, No pain distress, Well-nourished Ill-appearing: None Pain Distress: None Eyes: DISHA, EOMI, Conjunctiva clear ENT: Ears normal, Nose normal, Oropharynx normal Neck: Supple Respiratory: Airway patent, Breath sounds clear, Breath sounds equal, Respirations nonlabored Cardiovascular: RRR, Pulses normal, No rub, No murmur GI/: Soft, Nontender, No masses, Bowel sounds normal, No Organomegaly Musculoskeletal: Normal strength, ROM intact, No edema, No calf tenderness Skin: Warm, Dry, Normal color Neurological: Sensation intact, Motor intact, Reflexes intact, Cranial nerves intact, Alert, Oriented Psychiatric: Affect appropriate, Mood appropriate Interpretation - Radiology Interpretation Radiology Results: No acute changes Exam Interpreted: V/Q Scan Xray Comments: 1.2 X .7 cm Exophytic nodule projecting from upper pole lt kidney Critical Care Note - Critical Care Note Total Time (mins): 0 Course - Course Orders, Labs, Meds: Lab Review 05/01/18 16:50 Urine Color Yellow Urine Clarity Clear Urine pH 6.0 Ur Specific [place] 1.025 Urine Protein 1+ Urine Glucose (UA) Negative Urine Ketones Negative Urine Blood Negative Urine Nitrite Negative Urine Bilirubin Negative Urine Urobilinogen 0.2 Ur Leukocyte Esterase Negative Urine Microscopic WBC 0-2 Ur Squamous Epith Cells 0-2 Amorphous Sediment Trace Urine Bacteria Trace Orders Category Date Time Status UA [URINALYSIS C & S IF INDICATED] Stat LAB 05/01/18 16:50 Completed URINARY CALCULI Stat LAB 05/01/18 17:43 Received Tamsulosin HCl [Flomax] MEDS 05/01/18 16:37 Discontinued 0.4 mg PO ONCE STA CT ABD/PEL WO RENAL STONE PROT Stat RADS 05/01/18 16:38 Completed Medications Discontinued Medications Generic Name Dose Route Start Last Admin Trade Name Esperanza PRN Reason Stop Dose Admin Tamsulosin HCl 0.4 mg 05/01/18 16:37 05/01/18 16:51 Flomax PO 05/01/18 16:38 0.4 mg ONCE STA Administration Vital Signs: Temp Pulse Resp BP Pulse Ox 05/01/18 16:20 97.3 F L 94 H 20 119/81 98 Departure - Departure Time of Disposition: 17:45 Disposition: HOME SELF-CARE Discharge Problem: Left flank pain, Kidney stone on left side, Ureterolithiasis, Nodule of kidney Condition: Good Pt referred to PMD for follow-up: Yes (1 week) IPMP verified?: No Additional Instructions: Discussed findings of a 1.2 X .7 cm Exophytic nodule projecting from upper pole lt kidney Follow up with PCP and obtain referral to -Urological specialist. Take meds as directed Prescriptions: Tramadol HCl 50 mg PO QID PRN #20 tablet PRN Reason: Abdominal-Flank Pain Allergies/Adverse Reactions: Allergies No Known Allergies Allergy (Verified 04/14/18 13:41) Home Medications: Ambulatory Orders Potassium Chloride [K-Dur] 40 meq PO BID 30 Days #60 tab 10/05/17 Zolpidem Tartrate [Ambien] 10 mg PO BEDTIME 03/06/18 Infliximab [Remicade] 100 mg IV DIRECTED 03/13/18 Ondansetron HCl [Zofran Tab] 4 mg PO Q8H PRN #14 tablet 03/26/18 Citalopram Hydrobromide [Celexa] 20 mg PO DAILY 03/29/18 Dicyclomine HCl [Bentyl] 10 mg PO 2-3XD PRN #30 capsule 04/14/18 Tramadol HCl 50 mg PO QID PRN #30 tablet 04/14/18 Tramadol HCl 50 mg PO QID PRN #20 tablet 05/01/18 Disposition Discussed With: Patient
--- NOTE | 2018-05-01 17:10 | CT ---
Exam: CT scan of the abdomen pelvis without contrast. Date: 05/01/2018. Comparison: 03/10/2016. HISTORY: Left lower back pain. TECHNIQUE: Helical scan of the abdomen pelvis was performed without contrast. FINDINGS: The lung bases are clear with granulomatous calcifications. The lumbar spine and bony pel vis are within normal limits. The spleen and liver have a uniform attenuation. The gallbladder is contracted. The stomach, pancre as and adrenal glands are normal. The kidneys have a normal morphology. There is a probable punctat e calcification along the cortical margin of the upper pole of the right kidney that is not within th e collecting system. There is a new 1.2 x 0.7 cm exophytic solid appearing nodule off the upper pole left kidney seen on axial image 70 and coronal image 43. There is a 0.5 cm hyperdense cyst projecti ng off the posterior mid pole region of the left kidney that measures 61 HU. There are 0.1-cm nonobs tructing calculi in the lower pole left kidney. There is no hydronephrosis. No retroperitoneal jose opathy is present. Changes of a right hemicolectomy are noted. The remainder of the colon is within normal limits. The pelvic sidewall and bladder are normal. There is no free pelvic fluid. Prostat e, rectum inguinal regions are normal. Impression: There has been the appearance of a 1.2 x 0.7 cm solid exophytic nodule projecting off th e upper pole left kidney when compared with 03/10/2016. 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 MRI or contrast enhanced CT would be recommended for further evaluation of this finding. Nonobstructing left nephrolithiasis. Right hemicolectomy.
== END 2018-05-01 18:16 | disposition home or self-care (01) ==
LOC: ED 16:20
DX: R10.32 Left lower quadrant pain (principal); R30.0 Dysuria; N20.2 Calculus of kidney with calculus of ureter
CPT/HCPCS: 74176; 81001; 82360; 99282

== ENCOUNTER 2018-05-08 09:56 | Emergency (ER) ==
[2018-05-08 09:59] VITALS: BP 143/76; TEMP 97.9; BMI 24.1
--- NOTE | 2018-05-08 10:22 | ED.PDOC ---
General ED Provider: Dr. SHARAN MCHUGH Chief Complaint: Back Pain Stated Complaint: LOW BACK PAIN ATRAUMATIC WITH RECENT HISTORY OF RENAL MASS Time Seen by Physician: 10:00 (SEE WITH LIZET HUMPHREYS AT ALL TIMES ) Mode of Arrival: Walk-In Information Source: Patient Exam Limitations: No limitations Nursing and Triage Documentation Reviewed and Agree: Yes Does patient meet sepsis criteria?: No If yes, has appropriate treatment been initiated?: No System Inflammatory Response Syndrome: Not Applicable Sepsis Protocol: For patient's 13 years and over: Temp is 96.8 and below OR 101 and greater Pulse >90 BPM Resp >20/minute Acutely Altered Mental Status Are patient's symptoms suggestive of a new infection, such as: -Pneumonia -Skin, Soft Tissue -Endocarditis -UTI -Bone, Joint Infection -Implantable Device -Acute Abdominal Infection -Wound Infection -Meningitis -Blood Stream Catheter Infection -Unknown Musculoskeletal Complaint Exam - Back Pain Complaint/Exam Mechanism of Injury: Reports: No known trauma Onset/Duration: 1 DAY Symptoms Are: Still present Timing: Intermittent Episodes Lasting: Days Initial Severity: Mild Current Severity: None (NO FLANK PAIN ON PLAPATION( PRESENT ZENIA HUMPHREYS )) Aggravating: Reports: None Alleviating: Reports: None Associated Signs and Symptoms: Denies: Swelling, Redness, Bruising, Fever, Weakness, Numbness, Tingling, Abdominal pain, Flank pain, Bladder incontinence, Bowel incontinence, Weight loss, Pain with weight bearing Related History: Reports: Similar episode TAD Risk Factors: Reports: None AAA Risk Factors: Reports: None Cauda Equina Risk Factors: Reports: None Epidural Abcess Risk Factors: Reports: None Related Surgical History: Reports: None Focal Tenderness: No Paraspinal Muscle Tenderness: No Paraspinal Muscle Spasm: No Scoliosis: No Lordosis: No Kyphosis: No SLR Test: Right Negative, Left Negative Hip Motion Testing Pain: Right Negative, Left Negative Focal Weakness: Present: None Focal Sensory Loss: Present: None Gait: Present: Normal Differential Diagnoses: Strain, Sprain Review of Systems - Review Of Systems Constitutional: Reports: No symptoms Eyes: Reports: No symptoms Ears, Nose, Mouth, Throat: Reports: No symptoms Respiratory: Reports: No symptoms Cardiac: Reports: No symptoms GI: Reports: No symptoms : Reports: No symptoms Musculoskeletal: Reports: Back pain Skin: Reports: No symptoms Neurological: Reports: No symptoms Endocrine: Reports: No symptoms Hematologic/Lymphatic: Reports: No symptoms All Other Systems: Reviewed and Negative Past Medical History - Past Medical History Previously Healthy: Yes Endocrine: Reports: Hypothyroid, Dyslipidemia Cardiovascular: Reports: None Respiratory: Reports: None Hematological: Reports: None Gastrointestinal: Reports: GERD, Crohn's, Pancreatitis Genitourinary: Reports: Kidney stones Neuro/Psych: Reports: Depression Musculoskeletal: Reports: None Cancer: Reports: None Other Pertinent Past Medical History: Hypokalemia - Surgical History General Surgical History: Reports: Other (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, INTESTINAL RESECTION) - Family History Family History: Reports: Unknown - Social History Smoking Status: Never smoker Hx Substance Use: No Alcohol Screening: None - Immunizations Influenza Vaccine within 12 Months: Yes Pneumococcal Vaccine up to Date: Yes Physical Exam - Physical Exam Appearance: Well-appearing, No pain distress, Well-nourished Eyes: DISHA, EOMI, Conjunctiva clear ENT: Ears normal, Nose normal, Oropharynx normal Respiratory: Airway patent, Breath sounds clear, Breath sounds equal, Respirations nonlabored Cardiovascular: RRR, Pulses normal, No rub, No murmur GI/: Soft, Nontender, No masses, Bowel sounds normal, No Organomegaly Musculoskeletal: Normal strength, ROM intact, No edema, No calf tenderness Skin: Warm, Dry, Normal color Neurological: Sensation intact, Motor intact, Reflexes intact, Cranial nerves intact, Alert, Oriented Psychiatric: Affect appropriate, Mood appropriate Critical Care Note - Critical Care Note Total Time (mins): 0 Course - Course Vital Signs: Temp Pulse Resp BP Pulse Ox 05/08/18 09:57 97.9 F 93 H 18 143/76 H 97 Departure - Departure Time of Disposition: 10:22 Disposition: HOME SELF-CARE Discharge Problem: Backache, Renal mass Instructions: Back Pain (ED) Condition: Good Pt referred to PMD for follow-up: Yes IPMP verified?: No Additional Instructions: Please call your Family Physician as soon as possible to schedule a follow-up appointment.SEE YOUR M.D. YOU KNOW YOU HAVE A KIDNEY TUMOR THESE TUMORS MUST BE EXPLORED BY SPECIALIST TO MAKE SURE KIDNEY CANCER DOES NOES SNEAK UPON YOU Allergies/Adverse Reactions: Allergies No Known Allergies Allergy (Verified 05/08/18 09:59) Home Medications: Ambulatory Orders Potassium Chloride [K-Dur] 40 meq PO BID 30 Days #60 tab 10/05/17 Zolpidem Tartrate [Ambien] 10 mg PO BEDTIME 03/06/18 Infliximab [Remicade] 100 mg IV DIRECTED 03/13/18 Ondansetron HCl [Zofran Tab] 4 mg PO Q8H PRN #14 tablet 03/26/18 Citalopram Hydrobromide [Celexa] 20 mg PO DAILY 03/29/18 Dicyclomine HCl [Bentyl] 10 mg PO 2-3XD PRN #30 capsule 04/14/18 Tramadol HCl 50 mg PO QID PRN #20 tablet 05/01/18 Disposition Discussed With: Patient
== END 2018-05-08 10:39 | disposition home or self-care (01) ==
LOC: ED 09:56
DX: M54.5 Low back pain (principal); N28.89 Other specified disorders of kidney and ureter
CPT/HCPCS: 81001; 99281; 99283

== ENCOUNTER 2018-05-08 20:15 | Emergency (ER) ==
[2018-05-08 20:15] VITALS: BMI 24.1
[2018-05-08 20:23] VITALS: BP 116/77; TEMP 97.2
--- NOTE | 2018-05-08 20:33 | ED.PDOC ---
General ED Provider: Dr. JULEE CLAYTON MD Chief Complaint: Back Pain Stated Complaint: L back pain Time Seen by Physician: 21:00 Mode of Arrival: Walk-In Information Source: Patient Exam Limitations: No limitations Nursing and Triage Documentation Reviewed and Agree: Yes Does patient meet sepsis criteria?: No If yes, has appropriate treatment been initiated?: Yes System Inflammatory Response Syndrome: Not Applicable Sepsis Protocol: For patient's 13 years and over: Temp is 96.8 and below OR 101 and greater Pulse >90 BPM Resp >20/minute Acutely Altered Mental Status Are patient's symptoms suggestive of a new infection, such as: -Pneumonia -Skin, Soft Tissue -Endocarditis -UTI -Bone, Joint Infection -Implantable Device -Acute Abdominal Infection -Wound Infection -Meningitis -Blood Stream Catheter Infection -Unknown Musculoskeletal Complaint Exam - Back Pain Complaint/Exam Mechanism of Injury: Reports: No known trauma Symptoms Are: Still present Timing: Intermittent Episodes Lasting: Minutes Initial Severity: Mild Current Severity: Moderate Location: Reports: Diffuse Character: Reports: Aching Aggravating: Reports: Bending Alleviating: Reports: Rest Related History: Reports: Similar episode (history kidney stones Crohns) TAD Risk Factors: Reports: None AAA Risk Factors: Reports: None Epidural Abcess Risk Factors: Reports: None Related Surgical History: Reports: None Focal Tenderness: No Paraspinal Muscle Tenderness: No Paraspinal Muscle Spasm: No Focal Weakness: Present: None Focal Sensory Loss: Present: None Gait: Present: Normal Review of Systems - Review Of Systems Constitutional: Reports: No symptoms Eyes: Reports: No symptoms Ears, Nose, Mouth, Throat: Reports: No symptoms Respiratory: Reports: No symptoms Cardiac: Reports: No symptoms GI: Reports: No symptoms : Reports: No symptoms Musculoskeletal: Reports: Joint pain Skin: Reports: No symptoms Neurological: Reports: No symptoms Endocrine: Reports: No symptoms Hematologic/Lymphatic: Reports: No symptoms All Other Systems: Reviewed and Negative Past Medical History - Past Medical History Previously Healthy: Yes Endocrine: Reports: Hypothyroid, Dyslipidemia Cardiovascular: Reports: None Respiratory: Reports: None Hematological: Reports: None Gastrointestinal: Reports: GERD, Crohn's, Pancreatitis Genitourinary: Reports: Kidney stones Neuro/Psych: Reports: Depression Musculoskeletal: Reports: None Cancer: Reports: None Other Pertinent Past Medical History: Hypokalemia - Surgical History General Surgical History: Reports: Other (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, INTESTINAL RESECTION) - Family History Family History: Reports: Unknown - Social History Smoking Status: Never smoker Hx Substance Use: No Alcohol Screening: None - Immunizations Tetanus Shot up to Date: Yes Influenza Vaccine within 12 Months: Yes Pneumococcal Vaccine up to Date: Yes Physical Exam - Physical Exam Appearance: Well-appearing, No pain distress, Well-nourished Ill-appearing: None Pain Distress: Mild Eyes: DISHA, EOMI, Conjunctiva clear ENT: Ears normal Neck: Supple Respiratory: Airway patent, Breath sounds clear, Breath sounds equal, Respirations nonlabored Cardiovascular: RRR, Pulses normal, No rub, No murmur GI/: Soft, Nontender, No masses, Bowel sounds normal, No Organomegaly Musculoskeletal: ROM intact (pain CVA) Skin: Warm, Dry, Normal color Neurological: Sensation intact, Motor intact, Reflexes intact, Cranial nerves intact, Alert, Oriented Psychiatric: Affect appropriate, Mood appropriate Critical Care Note - Critical Care Note Total Time (mins): 0 Course - Course Orders, Labs, Meds: Lab Review 05/08/18 21:00 Urine Color Yellow Urine Clarity Clear Urine pH 6.5 Ur Specific Bartley 1.020 Urine Protein Trace Urine Glucose (UA) Negative Urine Ketones Negative Urine Blood Negative Urine Nitrite Negative Urine Bilirubin Negative Urine Urobilinogen 0.2 Ur Leukocyte Esterase Negative Ur Squamous Epith Cells Not present Ur Transition Epith Cell 2-5 Hyaline Casts 0-2 Orders Category Date Time Status UA [URINALYSIS C & S IF INDICATED] Stat LAB 05/08/18 21:00 Completed Ketorolac Tromethamine [Toradol] MEDS 05/08/18 21:03 Discontinued 60 mg IM ONCE STA Medications Discontinued Medications Generic Name Dose Route Start Last Admin Trade Name Esperanza PRN Reason Stop Dose Admin Ketorolac Tromethamine 60 mg 05/08/18 21:03 05/08/18 21:07 Toradol IM 05/08/18 21:04 Not Given ONCE STA Vital Signs: Temp Pulse Resp BP Pulse Ox 05/08/18 20:15 97.2 F L 84 18 116/77 99 Departure - Departure Time of Disposition: 21:30 Disposition: HOME SELF-CARE Discharge Problem: Shoulder pain, left Low back pain Qualifiers: Sciatica presence: without sciatica Condition: Good Pt referred to PMD for follow-up: Yes IPMP verified?: No Prescriptions: Prednisone 20 mg PO DAILYWM 5 Days #5 tablet Allergies/Adverse Reactions: Allergies No Known Allergies Allergy (Verified 05/08/18 20:23) Home Medications: Ambulatory Orders Potassium Chloride [K-Dur] 40 meq PO BID 30 Days #60 tab 10/05/17 Zolpidem Tartrate [Ambien] 10 mg PO BEDTIME 03/06/18 Infliximab [Remicade] 100 mg IV DIRECTED 03/13/18 Ondansetron HCl [Zofran Tab] 4 mg PO Q8H PRN #14 tablet 03/26/18 Citalopram Hydrobromide [Celexa] 20 mg PO DAILY 03/29/18 Dicyclomine HCl [Bentyl] 10 mg PO 2-3XD PRN #30 capsule 04/14/18 Tramadol HCl 50 mg PO QID PRN #20 tablet 05/01/18 Prednisone 20 mg PO DAILYWM 5 Days #5 tablet 05/08/18 Transfer Form Completed: No Disposition Discussed With: Patient
[2018-05-08] MEDS: TORADOL IM STA (21:07)
== END 2018-05-08 21:45 | disposition home or self-care (01) ==
LOC: ED 20:15
DX: M54.5 Low back pain (principal); M25.512 Pain in left shoulder
CPT/HCPCS: 81001; 99283

== ENCOUNTER 2018-05-14 10:15 | Emergency (ER) ==
[2018-05-14 10:19] VITALS: BP 137/83; TEMP 98.5; BMI 23.8
--- NOTE | 2018-05-14 12:28 | ED.PDOC ---
General ED Provider: Dr. JULEE ACE Chief Complaint: Non-specific Complaint Stated Complaint: patient c/o pain to left kidney. states has appointment on the to have mri and needle biopsy of nodule. Time Seen by Physician: 12:15 Mode of Arrival: Walk-In Information Source: Patient Exam Limitations: No limitations Nursing and Triage Documentation Reviewed and Agree: Yes Does patient meet sepsis criteria?: No System Inflammatory Response Syndrome: Not Applicable Sepsis Protocol: For patient's 13 years and over: Temp is 96.8 and below OR 101 and greater Pulse >90 BPM Resp >20/minute Acutely Altered Mental Status Are patient's symptoms suggestive of a new infection, such as: -Pneumonia -Skin, Soft Tissue -Endocarditis -UTI -Bone, Joint Infection -Implantable Device -Acute Abdominal Infection -Wound Infection -Meningitis -Blood Stream Catheter Infection -Unknown Complaint Exam - Complaint/Exam Patient Complains of: Reports: Dysuria Onset/Duration: 3 days Symptoms Are: Still present Timing: Intermittent Initial Severity: Mild Current Severity: Mild Character: Reports: Colicky, Cramping Aggravating: Reports: None, Voiding, Straining Alleviating: Reports: None Associated Signs and Symptoms: Reports: Back pain, Decreased urine output Related History: Reports: Similar episode. Denies: Prior STD Testicular Torsion Risk Factors: Reports: None Surgical Obstruction Risk Factors: Reports: None Related Surgical History: Reports: None Abdominal Findings: Present: None Genitalia Exam: Present: Normal findings Rectal Exam: Absent: Normal Findings Differential Diagnoses: UTI Review of Systems - Review Of Systems Constitutional: Reports: No symptoms Eyes: Reports: No symptoms Ears, Nose, Mouth, Throat: Reports: No symptoms Respiratory: Reports: No symptoms Cardiac: Reports: No symptoms GI: Reports: No symptoms : Reports: No symptoms Musculoskeletal: Reports: No symptoms Skin: Reports: No symptoms Neurological: Reports: No symptoms Endocrine: Reports: No symptoms Hematologic/Lymphatic: Reports: No symptoms All Other Systems: Reviewed and Negative Past Medical History - Past Medical History Previously Healthy: Yes Endocrine: Reports: Hypothyroid, Dyslipidemia Cardiovascular: Reports: None Respiratory: Reports: None Hematological: Reports: None Gastrointestinal: Reports: GERD, Crohn's, Pancreatitis Genitourinary: Reports: Kidney stones Neuro/Psych: Reports: Depression Musculoskeletal: Reports: None Cancer: Reports: None Other Pertinent Past Medical History: Hypokalemia - Surgical History General Surgical History: Reports: Other (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, INTESTINAL RESECTION) - Family History Family History: Reports: Unknown - Social History Smoking Status: Never smoker Hx Substance Use: No Alcohol Screening: None - Immunizations Influenza Vaccine within 12 Months: Yes Pneumococcal Vaccine up to Date: Yes Physical Exam - Physical Exam Appearance: Well-appearing, No pain distress, Well-nourished Eyes: DISHA, EOMI, Conjunctiva clear ENT: Ears normal, Nose normal, Oropharynx normal Respiratory: Airway patent, Breath sounds clear, Breath sounds equal, Respirations nonlabored Cardiovascular: RRR, Pulses normal, No rub, No murmur GI/: Soft, Nontender, No masses, Bowel sounds normal, No Organomegaly Musculoskeletal: Normal strength, ROM intact, No edema, No calf tenderness Skin: Warm, Dry, Normal color Neurological: Sensation intact, Motor intact, Reflexes intact, Cranial nerves intact, Alert, Oriented Psychiatric: Affect appropriate, Mood appropriate Critical Care Note - Critical Care Note Total Time (mins): 0 Course - Course Vital Signs: Temp Pulse Resp BP Pulse Ox 05/14/18 10:17 98.5 F 110 H 16 137/83 99 Departure - Departure Time of Disposition: 12:35 Disposition: HOME SELF-CARE Discharge Problem: Acute low back pain, Spasm of lumbar paraspinous muscle, Nodule of kidney Instructions: Low Back Strain (ED), Acute Low Back Pain (ED), Lower Back Exercises (ED) Condition: Fair Pt referred to PMD for follow-up: Yes IPMP verified?: No Additional Instructions: Exercises twice daily for low back pain Take meds as directed. followup as need May take 650 mg Tylenol with Tramadol twice daily for additional relief Prescriptions: Tramadol HCl [Tramadol HCl ER] 100 mg PO Q12HR PRN #20 tab.er.24h PRN Reason: flank pain Orphenadrine Citrate [Norflex] 100 mg PO Q12H PRN #20 tablet.er PRN Reason: Back pain and spasm Allergies/Adverse Reactions: Allergies No Known Allergies Allergy (Verified 05/14/18 10:23) Home Medications: Ambulatory Orders Potassium Chloride [K-Dur] 40 meq PO BID 30 Days #60 tab 10/05/17 Zolpidem Tartrate [Ambien] 10 mg PO BEDTIME 03/06/18 Infliximab [Remicade] 100 mg IV DIRECTED 03/13/18 Ondansetron HCl [Zofran Tab] 4 mg PO Q8H PRN #14 tablet 03/26/18 Citalopram Hydrobromide [Celexa] 20 mg PO DAILY 03/29/18 Dicyclomine HCl [Bentyl] 10 mg PO 2-3XD PRN #30 capsule 04/14/18 Tramadol HCl 50 mg PO QID PRN #20 tablet 05/01/18 Prednisone 20 mg PO DAILYWM 5 Days #5 tablet 05/08/18 Orphenadrine Citrate [Norflex] 100 mg PO Q12H PRN #20 tablet.er 05/14/18 Tramadol HCl [Tramadol HCl ER] 100 mg PO Q12HR PRN #20 tab.er.24h 05/14/18 Disposition Discussed With: Patient
== END 2018-05-14 12:47 | disposition home or self-care (01) ==
LOC: ED 10:15
DX: M54.5 Low back pain (principal); M62.830 Muscle spasm of back; N28.89 Other specified disorders of kidney and ureter
CPT/HCPCS: 99282

== ENCOUNTER 2018-05-28 09:36 | Emergency (ER) ==
[2018-05-28 09:41] VITALS: BP 107/73; TEMP 97.8; BMI 23.4
--- NOTE | 2018-05-28 10:05 | ED.PDOC ---
General ED Provider: Dr. TIARA HUANG Chief Complaint: Back Pain Stated Complaint: Crohn's disease.S/p surgical [employer] internship for fistula with il.eus in the oast,Currently. chronic paoin,nausea and dehydration requiring periodic support. Time Seen by Physician: 09:45 Mode of Arrival: Walk-In Information Source: Patient Exam Limitations: No limitations Nursing and Triage Documentation Reviewed and Agree: Yes Does patient meet sepsis criteria?: No System Inflammatory Response Syndrome: Not Applicable Sepsis Protocol: For patient's 13 years and over: Temp is 96.8 and below OR 101 and greater Pulse >90 BPM Resp >20/minute Acutely Altered Mental Status Are patient's symptoms suggestive of a new infection, such as: -Pneumonia -Skin, Soft Tissue -Endocarditis -UTI -Bone, Joint Infection -Implantable Device -Acute Abdominal Infection -Wound Infection -Meningitis -Blood Stream Catheter Infection -Unknown GI Complaint Exam - Abdominal Pain Complaint/Exam Duration: few days Symptoms Are: Still present Timing: Intermittent Initial Severity: Moderate Current Severity: Moderate Location of Pain: Suprapubic Radiates To: Reports: Back Character: Reports: Dull Aggravating: Reports: Eating Alleviating: Reports: Rest, Spontaneous resolution Associated Signs and Symptoms: Reports: Back pain, Decreased appetite, Nausea Related History: Reports: Similar episode AAA Risk Factors: Reports: None Cardiac Risk Factors: Reports: None Surgical Obstruction Risk Factors: Reports: Prior abdominal surgery Related Surgical History: Reports: Bowel Resection Abdominal Findings: Present: Other Differential Diagnoses: Bowel Obstruction, Gastroenteritis, Irritable Bowel Syndrome, Ureteral Stone Review of Systems - Review Of Systems Constitutional: Reports: No symptoms, Malaise Eyes: Reports: No symptoms Ears, Nose, Mouth, Throat: Reports: No symptoms Respiratory: Reports: No symptoms Cardiac: Reports: No symptoms GI: Reports: Abdominal pain, Nausea, Poor appetite : Reports: No symptoms Musculoskeletal: Reports: No symptoms Skin: Reports: No symptoms Neurological: Reports: No symptoms Endocrine: Reports: No symptoms Hematologic/Lymphatic: Reports: No symptoms All Other Systems: Reviewed and Negative Past Medical History - Past Medical History Previously Healthy: Yes Endocrine: Reports: Hypothyroid, Dyslipidemia Cardiovascular: Reports: None Respiratory: Reports: None Hematological: Reports: None Gastrointestinal: Reports: GERD, Crohn's, Pancreatitis Genitourinary: Reports: Kidney stones Neuro/Psych: Reports: Depression Musculoskeletal: Reports: None Cancer: Reports: None Other Pertinent Past Medical History: Hypokalemia - Surgical History General Surgical History: Reports: Other (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, INTESTINAL RESECTION) - Family History Family History: Reports: Unknown - Social History Smoking Status: Never smoker Hx Substance Use: No Alcohol Screening: None - Immunizations Influenza Vaccine within 12 Months: Yes Pneumococcal Vaccine up to Date: Yes Physical Exam - Physical Exam Appearance: Well-appearing Ill-appearing: Mild Pain Distress: Moderate Eyes: DISHA ENT: Ears normal Neck: Supple Respiratory: Airway patent Cardiovascular: RRR GI/: Soft Musculoskeletal: Normal strength Skin: Warm Neurological: Sensation intact Re-Evaluation - Re-Evaluation Time of Re-Evaluation: 11:06 Status: Improved Vital Signs Stable: Yes Pain Level: improved Appearance: NAD Lungs: Clear Skin: Warm and Dry Neuro: Alert and Oriented X3 Additional Comments: normal CBC,K tab 40mEg po,small change in creat BUN low. - Re-Evaluation Skin: Other Critical Care Note - Critical Care Note Total Time (mins): 0 Course - Course Hematology/Chemistry: 05/28/18 10:20 05/28/18 10:20 Orders, Labs, Meds: Lab Review 05/28/18 05/28/18 10:20 10:20 WBC 10.30 H RBC 4.30 L Hgb 12.5 L Hct 36.9 L MCV 85.8 MCH 29.1 MCHC 33.9 RDW Coeff of Svitlana 12.6 Plt Count 239 Immature Gran % (Auto) 0.3 Neut % (Auto) 64.3 Lymph % (Auto) 25.0 [place] % (Auto) 8.0 Eos % (Auto) 2.2 Baso % (Auto) 0.2 Immature Gran # (Auto) 0.0 Neut # (Auto) 6.6 Lymph # (Auto) 2.6 [place] # (Auto) 0.8 Eos # (Auto) 0.2 Baso # (Auto) 0.0 Sodium 139.9 Potassium 3.24 L Chloride 106.4 Carbon Dioxide 21.0 L Anion Gap 15.74 BUN 12.0 Creatinine 1.12 H Estimated GFR (MDRD) 75.00 BUN/Creatinine Ratio 10.71 Glucose 87.1 Calcium 9.41 Total Bilirubin 0.42 AST 23.9 ALT 19.6 Alkaline Phosphatase 78.8 Total Protein 7.90 Albumin 4.52 Globulin 3.38 Albumin/Globulin Ratio 1.33 Orders Category Date Time Status IV [ED IV/MEDIPORT/POWERPORT] .ONCE EMERGENCY 05/28/18 10:11 Active CBC W/ AUTO DIFF Stat LAB 05/28/18 10:20 Completed CMP [COMPREHENSIVE METABOLIC PANEL] Stat LAB 05/28/18 10:20 Completed 0.9 % Sodium Chloride [Saline Flush] MEDS 05/28/18 10:11 Active 1 syr IVF PRN PRN Morphine Sulfate [Morphine 2 mg/ml Syringe] MEDS 05/28/18 10:16 Discontinued 2 mg IVP ONCE STA Morphine Sulfate [Morphine 2 mg/ml Syringe] MEDS 05/28/18 11:09 Discontinued 2 mg IVP ONCE STA Ondansetron HCl/Pf [Zofran 4 mg/2 ml] MEDS 05/28/18 10:13 Discontinued 4 mg IVP ONCE STA Potassium Chloride [K-Dur] MEDS 05/28/18 11:05 Discontinued 40 meq PO ONCE STA Sodium Chloride 0.9% [Sodium Chloride] 1,000 ml MEDS 05/28/18 10:12 Discontinued IV BOLUS Medications Generic Name Dose Route Start Last Admin Trade Name Freq PRN Reason Stop Dose Admin Sodium Chloride 1 syr 05/28/18 10:11 05/28/18 10:35 Saline Flush IVF 1 syr PRN PRN Administration To flush IV Discontinued Medications Generic Name Dose Route Start Last Admin Trade Name Freq PRN Reason Stop Dose Admin Sodium Chloride 1,000 mls @ 1,000 mls/hr 05/28/18 10:12 05/28/18 10:35 Sodium Chloride IV 05/28/18 11:11 1,000 mls/hr BOLUS STA Administration Morphine Sulfate 2 mg 05/28/18 10:16 05/28/18 10:38 Morphine 2 Mg/Ml Syringe IVP 05/28/18 10:17 2 mg ONCE STA Administration Morphine Sulfate 2 mg 05/28/18 11:09 05/28/18 11:21 Morphine 2 Mg/Ml Syringe IVP 05/28/18 11:10 2 mg ONCE STA Administration Ondansetron HCl 4 mg 05/28/18 10:13 05/28/18 10:36 Zofran 4 Mg/2 Ml IVP 05/28/18 10:14 4 mg ONCE STA Administration Potassium Chloride 40 meq 05/28/18 11:05 05/28/18 11:18 K-Dur PO 05/28/18 11:06 40 meq ONCE STA Administration Vital Signs: Temp Pulse Resp BP Pulse Ox 05/28/18 09:37 97.8 F 104 H 16 107/73 99 Departure - Departure Time of Disposition: 11:34 Disposition: HOME SELF-CARE Discharge Problem: Abdominal pain despite therapy for Crohn's disease Instructions: Acute Abdominal Pain (ED) Condition: Good Pt referred to PMD for follow-up: Yes (follow with [facility] PCP) IPMP verified?: Yes Additional Instructions: Prescriptions given for Tylenol with Codeine Allergies/Adverse Reactions: Allergies No Known Allergies Allergy (Verified 05/28/18 09:43) Home Medications: Ambulatory Orders Potassium Chloride [K-Dur] 40 meq PO BID 30 Days #60 tab 10/05/17 Zolpidem Tartrate [Ambien] 10 mg PO BEDTIME 03/06/18 Infliximab [Remicade] 100 mg IV DIRECTED 03/13/18 Citalopram Hydrobromide [Celexa] 20 mg PO DAILY 03/29/18 Orphenadrine Citrate [Norflex] 100 mg PO Q12H PRN #20 tablet.er 05/14/18 Tramadol HCl [Tramadol HCl ER] 100 mg PO Q12HR PRN #20 tab.er.24h 05/14/18 Disposition Discussed With: Patient
[2018-05-28] MEDS ORDERED: SODIUM CHLORIDE 1,000 ML IV STA (10:12)
[2018-05-28] MEDS ORDERED: ZOFRAN 4 MG/2 ML IVP STA (10:13)
[2018-05-28] MEDS ORDERED: MORPHINE 2 MG/ML SYRINGE IVP STA ×2 (10:16→11:09)
[2018-05-28] MEDS ORDERED: K-DUR PO STA (11:05)
== END 2018-05-28 11:54 | disposition home or self-care (01) ==
LOC: ED 09:36
DX: R10.9 Unspecified abdominal pain (principal); R11.0 Nausea; M54.9 Dorsalgia, unspecified; G89.29 Other chronic pain; E03.9 Hypothyroidism, unspecified; E78.5 Hyperlipidemia, unspecified; K50.90 Crohn's disease, unspecified, without complications; Z87.19 Personal history of other diseases of the digestive system; Z98.890 Other specified postprocedural states; Z87.442 Personal history of urinary calculi; Z79.899 Other long term (current) drug therapy
CPT/HCPCS: 36415; 80053; 85025; 96361; 96374; 96375; 96376; 99283

== ENCOUNTER 2018-06-02 19:34 | Emergency (ER) ==
[2018-06-02 19:42] VITALS: BP 100/66; TEMP 98.8; BMI 22.9
== END 2018-06-02 20:40 | disposition left against medical advice (07) ==
LOC: ED 19:34
DX: R10.9 Unspecified abdominal pain (principal); Z87.19 Personal history of other diseases of the digestive system
CPT/HCPCS: 99281

== ENCOUNTER 2018-06-09 12:32 | Outpatient (CLI) ==
--- NOTE | 2018-06-09 14:55 | CT ---
Exam: CT abdomen and pelvis without contrast HISTORY: Vomiting and diarrhea. Left flank pain. History of Crohn disease. Procedures: 9 mm contiguous axial images were obtained through the abdomen and pelvis without the us e of intravenous or oral contrast. Sagittal and coronal reformatted images were also created and rev iewed. Comparison: 05/01/2018. Findings: Evaluation of the soft tissues is limited without the use of intravenous or oral contrast. There is new appearance of patchy areas of peribronchovascular opacity in the bilateral lung bases. The liver, gallbladder, spleen, pancreas and adrenal glands appear grossly within normal limits. T he kidneys are symmetric in size without hydronephrosis or radiodense stone. At the anterior upper p ole of the left kidney is a 7.8 mm mildly hyperdense nodule, stable. The posterior mid left kidney i s a 5 mm hyperdense nodule, stable. In the lateral mid left kidney is a 6 mm hyperdense nodule, stab le. In the anterior mid to lower left kidney is a 13 mm hyperdense nodule, stable. At the lateral l ower pole of the right kidney there is a stable appearing 8 mm fluid density probable cysts. There i s no hydroureter or ureterolithiasis. The unopacified stomach and small bowel are nondilated and shira ear grossly within normal limits. There is redemonstration of changes of prior distal ileal and prox imal colonic resection. There is no adjacent fluid collection or pneumatosis seen. There may be sub tle wall thickening in the bowel on the right upper abdomen. The urinary bladder is nondistended, wi thout radiodense stone. The prostate gland rectum appear stable. No free air or free fluid is ident ified in the abdomen or pelvis. There are multiple subcentimeter lymph nodes in the mesentery and pe lvis which appears similar to prior. No ailyn lymphadenopathy. Bone windows demonstrate no evidence of acute fracture. Impressions: New appearance of patchy areas of peribronchovascular opacity in the bilateral lung bases suggesting pneumonia. No nephrolithiasis or hydronephrosis. No bowel obstruction. There may be a subtle wall thickening/inflammation in a loop of bowel in the right upper quadrant. Stable appearance of multiple left renal nodules, inadequately evaluated on this non contrast study. Unexpected finding of probable pneumonia will be called to Dr. Stoll.
== END 2018-06-09 12:33 | disposition home or self-care (01) ==
LOC: RAD 12:32
PROVIDERS: ATTEND Urology
DX: N28.89 Other specified disorders of kidney and ureter (principal)

== ENCOUNTER 2018-06-09 12:58 | Emergency (ER) ==
[2018-06-09 13:03] VITALS: TEMP 97.7; BMI 23.2
--- NOTE | 2018-06-09 13:14 | ED.PDOC ---
General ED Provider: Dr. DWAIN ROBERTS Chief Complaint: Abdominal Pain Stated Complaint: Abdominal pain; diffuse for two weeks; a lot of diarrhea. Ultram helps pain and slows down diarrhea Time Seen by Physician: 13:10 Mode of Arrival: Walk-In Information Source: Patient Exam Limitations: No limitations Referred to ED by: Other (Came directly from CT Scan) Nursing and Triage Documentation Reviewed and Agree: Yes Does patient meet sepsis criteria?: No System Inflammatory Response Syndrome: Not Applicable Sepsis Protocol: For patient's 13 years and over: Temp is 96.8 and below OR 101 and greater Pulse >90 BPM Resp >20/minute Acutely Altered Mental Status Are patient's symptoms suggestive of a new infection, such as: -Pneumonia -Skin, Soft Tissue -Endocarditis -UTI -Bone, Joint Infection -Implantable Device -Acute Abdominal Infection -Wound Infection -Meningitis -Blood Stream Catheter Infection -Unknown Review of Systems - Review Of Systems Constitutional: Reports: Malaise Eyes: Reports: No symptoms Ears, Nose, Mouth, Throat: Reports: No symptoms Respiratory: Reports: No symptoms Cardiac: Reports: No symptoms GI: Reports: Abdominal pain (Diffuse - 2 weeks), Diarrhea, Nausea. Denies: Vomiting : Reports: No symptoms Musculoskeletal: Reports: No symptoms Skin: Reports: No symptoms All Other Systems: Reviewed and Negative Past Medical History - Past Medical History Previously Healthy: Yes Endocrine: Reports: Hypothyroid, Dyslipidemia Cardiovascular: Reports: None Respiratory: Reports: None Hematological: Reports: None Gastrointestinal: Reports: GERD, Crohn's, Pancreatitis Genitourinary: Reports: Kidney stones Neuro/Psych: Reports: Depression Musculoskeletal: Reports: None Cancer: Reports: None Other Pertinent Past Medical History: Hypokalemia - Surgical History General Surgical History: Reports: Other (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, INTESTINAL RESECTION) - Family History Family History: Reports: Unknown - Social History Smoking Status: Never smoker Hx Substance Use: No Alcohol Screening: None - Immunizations Influenza Vaccine within 12 Months: Yes Pneumococcal Vaccine up to Date: Yes Physical Exam - Physical Exam Appearance: Well-appearing Pain Distress: Mild Eyes: DISHA, EOMI ENT: Ears normal, Nose normal, Oropharynx normal Neck: Supple Respiratory: Airway patent, Breath sounds clear, Breath sounds equal Cardiovascular: RRR, Pulses normal GI/: Bowel sounds hyperactive Musculoskeletal: Normal strength, ROM intact Skin: Warm, Dry, Normal color Neurological: Sensation intact, Motor intact, Alert, Oriented Psychiatric: Affect appropriate, Mood appropriate Critical Care Note - Critical Care Note Total Time (mins): 25 Course - Course Hematology/Chemistry: 06/09/18 15:20 06/09/18 15:20 Orders, Labs, Meds: Lab Review 06/09/18 06/09/18 06/09/18 15:20 15:20 15:31 WBC 6.31 RBC 3.81 L Hgb 11.2 L Hct 32.5 L MCV 85.3 MCH 29.4 MCHC 34.5 RDW Coeff of Svitlana 12.3 Plt Count 252 Immature Gran % (Auto) 0.3 Neut % (Auto) 55.1 Lymph % (Auto) 30.1 [place] % (Auto) 11.1 H Eos % (Auto) 2.9 Baso % (Auto) 0.5 Immature Gran # (Auto) 0.0 Neut # (Auto) 3.5 Lymph # (Auto) 1.9 [place] # (Auto) 0.7 Eos # (Auto) 0.2 Baso # (Auto) 0.0 Sodium 140.5 Potassium 2.65 L* Chloride 95.6 L Carbon Dioxide 37.3 H Anion Gap 10.25 BUN 12.0 Creatinine 1.09 Estimated GFR (MDRD) 77.00 BUN/Creatinine Ratio 11.00 Glucose 87.4 Calcium 8.89 Total Bilirubin 0.26 AST 20.2 ALT 25.6 Alkaline Phosphatase 96.0 Total Protein 7.13 Albumin 4.25 Globulin 2.88 Albumin/Globulin Ratio 1.47 Urine Color Yellow Urine Clarity Clear Urine pH 6.0 Ur Specific [place] 1.010 Urine Protein Negative Urine Glucose (UA) Negative Urine Ketones Negative Urine Blood Negative Urine Nitrite Negative Urine Bilirubin Negative Urine Urobilinogen 0.2 Ur Leukocyte Esterase Negative Orders Category Date Time Status CBC W/ AUTO DIFF Stat LAB 06/09/18 15:20 Completed COMPREHENSIVE METABOLIC PANEL Stat LAB 06/09/18 15:20 Completed URINALYSIS C & S IF INDICATED Stat LAB 06/09/18 15:31 Completed CHEST, 2 VIEWS PA & LAT Stat RADS 06/09/18 16:13 Completed Discussed low Potassium with patient; pt states is on Potassium supplement (" two of those big pills a day") and that this ia a chronic problem. Vital Signs: Temp Pulse Resp BP Pulse Ox 06/09/18 18:08 97.7 F 78 20 100/71 100 06/09/18 13:00 97.7 F 102 H 20 112/76 98 Departure - Departure Time of Disposition: 18:02 Disposition: HOME SELF-CARE Discharge Problem: Pneumonia Crohn disease Qualifiers: Gastrointestinal tract location: unspecified location Digestive disease complication type: without complication Qualified Code(s): K50.90 - Crohn's disease, unspecified, without complications Instructions: Crohn Disease (ED) Condition: Stable Pt referred to PMD for follow-up: Yes (Must follow up with a primary care provider) IPMP verified?: Yes (Regular pain medication user) Additional Instructions: Follow up with primary care and urology; take antibiotic as prescribed and use pain medication as prescrbed. Must take your medications for Crohns Disease., Prescriptions: Ondansetron [Zofran Odt] 4 mg PO Q6HR PRN #10 tab.rapdis PRN Reason: Nausea / Vomiting Azithromycin [Zithromax Tri-Kobi] 500 mg PO DAILY 3 Days #3 tablet Tramadol HCl [Ultram] 50 mg PO Q6H #10 tablet Allergies/Adverse Reactions: Allergies No Known Allergies Allergy (Verified 06/02/18 19:43) Home Medications: Ambulatory Orders Potassium Chloride [K-Dur] 40 meq PO BID 30 Days #60 tab 10/05/17 Zolpidem Tartrate [Ambien] 10 mg PO BEDTIME 03/06/18 Infliximab [Remicade] 100 mg IV DIRECTED 03/13/18 Citalopram Hydrobromide [Celexa] 20 mg PO DAILY 03/29/18 Orphenadrine Citrate [Norflex] 100 mg PO Q12H PRN #20 tablet.er 05/14/18 Azithromycin [Zithromax Tri-Kobi] 500 mg PO DAILY 3 Days #3 tablet 06/09/18 Ondansetron [Zofran Odt] 4 mg PO Q6HR PRN #10 tab.rapdis 06/09/18 Tramadol HCl [Ultram] 50 mg PO Q6H #10 tablet 06/09/18 Disposition Discussed With: Patient (Discussed the CT findings of an unexpected suggested pneumonia; confirmed by 2 View CXR as a probable R basilar pneumonia and placed on antibiotic. Pt is asymptomatic for pneumonia; negative fever, shills, sweats. CT showed a call to one of his providers. Pt advised to follow up for all issues and to take all medications he is supposed to be taking.)
--- NOTE | 2018-06-09 16:32 | DI ---
EXAM: Chest two views HISTORY: CT suggestive of bibasilar pneumonia COMPARISON: CT abdomen pelvis 06/09/2018 TECHNIQUE: Two views of the chest were performed FINDINGS: Hazy opacity right lung base medially. There is no pleural effusion or pneumothorax. The heart is normal in size. The mediastinal contour is normal. There are no acute abnormalities of th e bones. IMPRESSION: Hazy right lung base opacity medially likely represents pneumonia. Left basilar opacity demonstrated on CT is not visualized by radiograph.
[2018-06-09 18:08] VITALS: BP 100/71
== END 2018-06-09 18:15 | disposition home or self-care (01) ==
LOC: ED 12:58
DX: J18.9 Pneumonia, unspecified organism (principal); K50.90 Crohn's disease, unspecified, without complications; R10.84 Generalized abdominal pain; E78.5 Hyperlipidemia, unspecified; E03.9 Hypothyroidism, unspecified; E87.6 Hypokalemia; Z87.19 Personal history of other diseases of the digestive system; Z87.442 Personal history of urinary calculi; Z79.899 Other long term (current) drug therapy; N28.89 Other specified disorders of kidney and ureter
CPT/HCPCS: 36415; 80053; 81001; 85025; 99283

== ENCOUNTER 2018-06-12 11:26 | Inpatient (IN) | payer MEDICAID ==
--- NOTE | 2018-06-12 12:38 | CT ---
EXAM: CT scan of the chest without contrast. HISTORY: Fever, cough TECHNIQUE: Helical imaging of the chest was performed without contrast. 5 mm thin axial images and coronal and sagittal reconstructions were provided for interpretation. Comparison 04/01/2018 CT scan of the chest. FINDINGS: The heart is normal size. No mediastinal abnormalities are seen. Patchy opacities are s een in the region of the anterior right lower lobe of the lung seen on axial image number 50. The fi ndings appear to be new when compared to previous study. No lytic or blastic lesions are seen within the osseous structures. IMPRESSION: Right lower lobe pneumonia.
--- NOTE | 2018-06-12 12:45 | CT ---
EXAM: CT scan of the abdomen pelvis without contrast HISTORY: Crohn disease, abdominal pain TECHNIQUE: Helical imaging of the abdomen pelvis was performed without contrast. 3 mm thin axial im ages and coronal and sagittal reconstructions were provided for interpretation. Comparison 06/09/2018 CT scan of the abdomen pelvis. FINDINGS: The evaluation was limited without intravenous and oral contrast. The liver, spleen, pancreas, adrenal glands and kidneys appear normal. The proximal ureters are norm al size. No retroperitoneal abnormalities are seen. There is no free air. The small and large nilton l loops are normal caliber. There is no bowel wall thickening. There has been previous right hemico lectomy. There is no free fluid. The helical images obtained through the pelvis demonstrate a normal appearance of the rectum, urinary bladder. There is no free fluid seen within the pelvis. Patchy opacities are seen in the anterior right lower lobe of the lung. Lung bases are otherwise clear. No lytic or blastic lesions are seen within the osseous structures. IMPRESSION: There is no bowel obstruction or acute inflammatory changes seen within the abdomen and pelvis. Right lower lobe pneumonia.
[2018-06-12] MEDS ORDERED: ZOSYN 3.375 GM 3.375 GM in SODIUM CHLORIDE 50 ML IV STA (13:01)
[2018-06-12] MEDS ORDERED: POTASSIUM CHLORIDE PREMIX RUN 10 MEQ in PREMIX 100 ML WATER 1 BAG IV STA (13:02)
--- NOTE | 2018-06-12 13:08 | ED.PDOC ---
General ED Provider: Dr. SHARAN MCHUGH Chief Complaint: Respiratory Complaint Stated Complaint: abdominal pain Time Seen by Physician: 11:30 (cough and abdominal pain which is a chronic issue ) Mode of Arrival: Walk-In Information Source: Patient Exam Limitations: No limitations Nursing and Triage Documentation Reviewed and Agree: Yes Does patient meet sepsis criteria?: No If yes, has appropriate treatment been initiated?: No System Inflammatory Response Syndrome: Not Applicable Sepsis Protocol: For patient's 13 years and over: Temp is 96.8 and below OR 101 and greater Pulse >90 BPM Resp >20/minute Acutely Altered Mental Status Are patient's symptoms suggestive of a new infection, such as: -Pneumonia -Skin, Soft Tissue -Endocarditis -UTI -Bone, Joint Infection -Implantable Device -Acute Abdominal Infection -Wound Infection -Meningitis -Blood Stream Catheter Infection -Unknown GI Complaint Exam - Abdominal Pain Complaint/Exam Onset: Gradual Symptoms Are: Still present Timing: Intermittent Initial Severity: Mild Current Severity: Mild Location of Pain: Diffuse Character: Reports: Aching Aggravating: Reports: None Alleviating: Reports: None Associated Signs and Symptoms: Denies: Diaphoresis, Fever, Cough, Chest pain, Dizziness, Back pain, Constipation, Blood in stool, Dysuria, Urinary frequency, Decreased urine output, Decreased appetite, Discharge, Nausea, Vomiting, Diarrhea, Decreased activity Related History: Reports: Similar episode AAA Risk Factors: Reports: None Cardiac Risk Factors: Reports: None Testicular Torsion Risk Factors: Reports: None Surgical Obstruction Risk Factors: Reports: None Related Surgical History: Reports: None Abdominal Findings: Present: None Differential Diagnoses: Appendicitis, Bowel Obstruction, Constipation, Diverticulitis Quality Indicator For Non-Traumatic Chest Pain/Syncope: EKG Performed Review of Systems - Review Of Systems Constitutional: Reports: No symptoms Eyes: Reports: No symptoms Ears, Nose, Mouth, Throat: Reports: No symptoms Respiratory: Reports: Cough Cardiac: Reports: No symptoms GI: Reports: Abdominal pain : Reports: No symptoms Musculoskeletal: Reports: No symptoms Skin: Reports: No symptoms Neurological: Reports: No symptoms Endocrine: Reports: No symptoms Hematologic/Lymphatic: Reports: No symptoms All Other Systems: Reviewed and Negative Past Medical History - Past Medical History Previously Healthy: Yes Endocrine: Reports: Hypothyroid, Dyslipidemia Cardiovascular: Reports: None Respiratory: Reports: None Hematological: Reports: None Gastrointestinal: Reports: GERD, Crohn's, Pancreatitis Genitourinary: Reports: Kidney stones Neuro/Psych: Reports: Depression Musculoskeletal: Reports: None Cancer: Reports: None Other Pertinent Past Medical History: Hypokalemia - Surgical History General Surgical History: Reports: Other (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, INTESTINAL RESECTION) - Family History Family History: Reports: Unknown - Social History Smoking Status: Never smoker Hx Substance Use: No Alcohol Screening: None - Immunizations Influenza Vaccine within 12 Months: Yes Pneumococcal Vaccine up to Date: Yes Physical Exam - Physical Exam Appearance: Well-appearing, No pain distress, Well-nourished Eyes: DISHA, EOMI, Conjunctiva clear ENT: Ears normal, Nose normal, Oropharynx normal Respiratory: Airway patent, Breath sounds clear, Breath sounds equal, Respirations nonlabored Cardiovascular: RRR, Pulses normal, No rub, No murmur GI/: Soft, Nontender, No masses, Bowel sounds normal, No Organomegaly Musculoskeletal: Normal strength, ROM intact, No edema, No calf tenderness Skin: Warm, Dry, Normal color Neurological: Sensation intact, Motor intact, Reflexes intact, Cranial nerves intact, Alert, Oriented Psychiatric: Affect appropriate, Mood appropriate Interpretation - Radiology Interpretation Radiology Interpretation By: Radiologist Radiology Results: No acute changes (ct abdomen but postive CT CHEST PNEUMONIA) Physician Notification - Case Discussed Physician Notified: LAURA DUVALL Time of Notification: 13:07 Admit To: Inpatient Critical Care Note - Critical Care Note Total Time (mins): 0 Course - Course Hematology/Chemistry: 06/12/18 12:00 06/12/18 12:00 Orders, Labs, Meds: Lab Review 06/12/18 06/12/18 12:00 12:00 WBC 6.87 RBC 4.46 L Hgb 12.8 L Hct 37.3 L MCV 83.6 MCH 28.7 MCHC 34.3 RDW Coeff of Svitlana 12.2 Plt Count 288 Immature Gran % (Auto) 0.6 Neut % (Auto) 62.9 Lymph % (Auto) 24.6 [place] % (Auto) 9.8 Eos % (Auto) 2.0 Baso % (Auto) 0.1 Immature Gran # (Auto) 0.0 Neut # (Auto) 4.3 Lymph # (Auto) 1.7 [place] # (Auto) 0.7 Eos # (Auto) 0.1 Baso # (Auto) 0.0 Sodium 138.8 Potassium 2.71 L* Chloride 95.8 L Carbon Dioxide 31.8 H Anion Gap 13.91 BUN 10.0 Creatinine 1.11 H Estimated GFR (MDRD) 76.00 BUN/Creatinine Ratio 9.00 Glucose 126.5 H Calcium 9.66 Total Bilirubin 0.66 AST 20.9 ALT 20.2 Alkaline Phosphatase 121.9 D Total Protein 7.94 Albumin 4.73 Globulin 3.21 Albumin/Globulin Ratio 1.47 Orders Category Date Time Status EKG-(ED ONLY) Stat CARDIO 06/12/18 12:26 Ordered CBC W/ AUTO DIFF Stat LAB 06/12/18 12:00 Completed COMPREHENSIVE METABOLIC PANEL Stat LAB 06/12/18 12:00 Completed URINALYSIS C & S IF INDICATED Stat LAB 06/12/18 11:39 Uncollected Azithromycin Inj [Zithromax] 500 mg MEDS 06/12/18 13:30 Ordered 0.9 % Sodium Chloride [Sodium Chloride] 250 ml IV DAILY Infliximab [Remicade] MEDS 06/12/18 13:30 Ordered 100 mg IV DIRECTED Piperacillin Sodium/Tazobactam [Zosyn 3.375 gm] 3.375 MEDS 06/12/18 13:01 Ordered gm 0.9 % Sodium Chloride [Sodium Chloride] 50 ml IV ONCE Potassium Chloride [K-Dur] MEDS 06/12/18 21:00 Ordered 40 meq PO BID Potassium Chloride [Potassium Chloride Premix Run] 10 MEDS 06/12/18 13:02 Ordered meq Premix 100 ml Water [address] ABDOMEN/PELVIS WO CONTRAST Stat RADS 06/12/18 11:[address] CHEST W/O CONTRAST Stat RADS 06/12/18 11:39 Completed Medications Generic Name Dose Route Start Last Admin Trade Name Freq PRN Reason Stop Dose Admin Piperacillin Sod/Tazobactam 50 mls @ 50 mls/hr 06/12/18 13:01 Sod 3.375 gm/ Sodium Chloride IV 06/12/18 14:00 ONCE STA Potassium Chloride 10 meq/ 100 mls @ 100 mls/hr 06/12/18 13:02 Sterile Water IV 06/12/18 14:01 ONCE STA Azithromycin 500 mg/ Sodium 250 mls @ 125 mls/hr 06/12/18 13:30 Chloride IV 06/15/18 13:29 DAILY JOSE Infliximab 100 mg 06/12/18 13:30 Remicade IV DIRECTED JOSE Potassium Chloride 40 meq 06/12/18 21:00 K-Dur PO BID [facility] Vital Signs: Temp Pulse Resp BP Pulse Ox 06/12/18 11:26 99.4 F 105 H 18 105/69 99 Departure - Departure Time of Disposition: 13:07 Disposition: ADMITTED INPATIENT Discharge Problem: Hypokalemia Pneumonia Qualifiers: Pneumonia type: due to unspecified organism Laterality: right Lung location: middle lobe of lung Qualified Code(s): J18.1 - Lobar pneumonia, unspecified organism Instructions: Bacterial Pneumonia (DC), Pneumonia (ED) Condition: Good Pt referred to PMD for follow-up: Yes IPMP verified?: No Additional Instructions: Please call your Family Physician as soon as possible to schedule a follow-up appointment. Allergies/Adverse Reactions: Allergies No Known Allergies Allergy (Verified 06/12/18 11:31) Home Medications: Ambulatory Orders Potassium Chloride [K-Dur] 40 meq PO BID 30 Days #60 tab 10/05/17 Zolpidem Tartrate [Ambien] 10 mg PO BEDTIME 03/06/18 Infliximab [Remicade] 100 mg IV DIRECTED 03/13/18 Citalopram Hydrobromide [Celexa] 20 mg PO DAILY 03/29/18 Orphenadrine Citrate [Norflex] 100 mg PO Q12H PRN #20 tablet.er 05/14/18 Azithromycin [Zithromax Tri-Kobi] 500 mg PO DAILY 3 Days #3 tablet 06/09/18 Ondansetron [Zofran Odt] 4 mg PO Q6HR PRN #10 tab.rapdis 06/09/18 Tramadol HCl [Ultram] 50 mg PO Q6H #10 tablet 06/09/18
[2018-06-12] MEDS: SODIUM CHLORIDE 1,000 ML IV SCH (13:26)
[2018-06-12] MEDS ORDERED: REMICADE IV SCH (13:30)
[2018-06-12 13:53] VITALS: BMI 22.8
[2018-06-12] MEDS ORDERED: POTASSIUM CHLORIDE PREMIX RUN 100 ML IV ONE (14:44)
[2018-06-12] MEDS: ZITHROMAX 500 MG in SODIUM CHLORIDE 250 ML IV SCH (16:19)
[2018-06-12] MEDS ORDERED: POTASSIUM CHLORIDE 40 MEQ VIAL-ADDITIVE ONLY IV ONE (16:52)
[2018-06-12] MEDS ORDERED: POTASSIUM CHLORIDE 20 MEQ VIAL IV ONE (16:59)
[2018-06-12] MEDS ORDERED: POTASSIUM CHLORIDE 10 MEQ VIAL IV ONE (16:59)
[2018-06-12] MEDS: K-DUR PO SCH (17:10)
[2018-06-12] MEDS ORDERED: CELEXA ONE (17:22)
[2018-06-12] MEDS ORDERED: ROCEPHIN ONE (17:23)
[2018-06-12] MEDS ORDERED: CELEXA PO SCH (17:30)
[2018-06-12] MEDS: ROCEPHIN 1 GM in SODIUM CHLORIDE 50 ML IV SCH (18:27)
[2018-06-12] MEDS ORDERED: K-DUR PO SCH (21:00)
[2018-06-12] MEDS: AMBIEN PO PRN (21:07)
[2018-06-12] MEDS: ULTRAM PO SCH (21:07)
[2018-06-13] MEDS: ULTRAM PO SCH ×4 (03:28→23:50)
[2018-06-13] MEDS ORDERED: POTASSIUM CHLORIDE 10 MEQ VIAL IV ONE (05:02)
[2018-06-13] MEDS: SODIUM CHLORIDE 0.9% IV SCH ×2 (06:19→23:25)
[2018-06-13] MEDS: KCL 20 MEQ IV SCH ×2 (06:19→23:25)
[2018-06-13] MEDS: POTASSIUM CHLORIDE IV SCH ×2 (06:19→23:25)
[2018-06-13] MEDS: CELEXA PO SCH (09:06)
[2018-06-13] MEDS: K-DUR PO SCH ×2 (09:06→17:48)
[2018-06-13] MEDS: ROCEPHIN 1 GM in SODIUM CHLORIDE 50 ML IV SCH (09:06)
[2018-06-13] MEDS ORDERED: ULTRAM ONE (09:26)
[2018-06-13] MEDS: ZITHROMAX 500 MG in SODIUM CHLORIDE 250 ML IV SCH (09:43)
[2018-06-13] MEDS ORDERED: ULTRAM PO STA (09:44)
[2018-06-13] MEDS: SODIUM CHLORIDE 1,000 ML IV SCH (17:34)
[2018-06-13] MEDS: AMBIEN PO PRN (20:46)
[2018-06-13] MEDS: DEXTROSE 5%-LR IV SOLUTION 1,000 ML IV SCH (20:49)
[2018-06-14] MEDS: ULTRAM PO SCH ×3 (05:55→18:19)
[2018-06-14] MEDS: K-DUR PO SCH ×2 (08:54→16:30)
[2018-06-14] MEDS: CELEXA PO SCH (08:54)
[2018-06-14] MEDS: ZITHROMAX 500 MG in SODIUM CHLORIDE 250 ML IV SCH (08:54)
[2018-06-14] MEDS: ROCEPHIN 1 GM in SODIUM CHLORIDE 50 ML IV SCH (09:00)
[2018-06-14] MEDS: DEXTROSE 5%-LR IV SOLUTION 1,000 ML IV SCH (09:44)
[2018-06-14] MEDS: AMBIEN PO PRN (21:17)
[2018-06-15] MEDS: DEXTROSE 5%-LR IV SOLUTION 1,000 ML IV SCH (00:08)
[2018-06-15] MEDS: ULTRAM PO SCH ×3 (01:08→11:58)
[2018-06-15 05:18] VITALS: BP 112/71; TEMP 97.5
[2018-06-15] MEDS: ROCEPHIN 1 GM in SODIUM CHLORIDE 50 ML IV SCH (07:59)
[2018-06-15] MEDS: CELEXA PO SCH (07:59)
[2018-06-15] MEDS: K-DUR PO SCH (07:59)
--- NOTE | 2018-06-15 13:47 | HP ---
DATE OF SERVICE: 06/12/18 HISTORY OF PRESENT ILLNESS: The patient was seen 06/09/18 in the emergency room complaining of abdominal pain. In the course of workup the patient was found to have right lower lobe pneumonia and was prescribed Zithromax 500 mg daily. He again presented to the emergency room on 06/12/18 complaining of "not any better" with the pneumonia in spite of the antibiotics. He stated that it was given 5 days ago and that is not accurate. It was given 06/09/18. The patient did also complain of some abdominal pain which is a chronic problem. The emergency room physician felt that this patient needs to be admitted to the hospital because of the pneumonia. Vital signs on presentation to the emergency room was temperature 99.4, pulse 105, respiratory rate 18, oxygen saturation 99, BP 105/69. PAST PERSONAL HISTORY: The patient has history of Crohn's disease on Remicade 100 mg every 8 weeks. The patient received the last dose five weeks ago. He also has history of pancreatitis, history of hypokalemia requiring admission on 10/28/17. He also had another episode of hypokalemia 10/04/[address] Salas. He was admitted 12/19/15 because of abdominal pain and elevated serum amylase and lipase. History of elevated serum lipase and amylase, reason undetermined. The patient denies any use of alcohol. It might be an autoimmune hepatitis. Also, history of depression and history of drug abuse, seeking narcotic analgesic medications more so than what he is prescribed. 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 Also has history of GERD, hypothyroidism, renal stones. The patient had ileostomy in 2007, reversed in 2011. Lithotripsy . FAMILY HISTORY: Father had skin cancer. Mother unremarkable. Some members of the family had ulcerative colitis. SOCIAL HISTORY: The patient is single, does not smoke or drink any alcoholic beverages. History of drug abuse. MEDICATIONS: (PRIOR TO THIS ADMISSION) K-Dur 20 mEq tablet, two tablets twice a day prescribed 10/05/17 Zolpidem 10 mg at bedtime Remicade 100 mg vial 100 mg intravenously q.8 weeks Celexa 20 mg daily Norflex 100 mg tablet q.12hr #20 from the emergency room 05/14/18 Zithromax 500 mg daily for three days, 06/09/18 Tramadol 50 mg tablet q.6hr p.r.n. for pain #10, no refills, 06/09/18 Zofran 4 mg tablet q.6hr p.r.n. #10, 06/09/18 ALLERGIES: NKDA REVIEW OF SYSTEMS: CONSTITUTIONAL: The patient had low grade temperature but no chills and doesn't feel well. 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 No ataxia. No syncopal episode. No seizure events. No episode of weakness or other left or right upper or lower extremities. VISUAL: Denies any double vision, blurred vision or loss of vision. AUDITORY: Hearing is adequate. Denies any tinnitus, pain or drainage. RESPIRATORY: The patient has significant cough. No shortness of breath. No wheezing or hemoptysis. CARDIOVASCULAR: Denies any chest pain or chest tightness. GASTROINTESTINAL: The patient does complain of abdominal pain with some nausea. Abdominal pain is a chronic problem and has been for years. This patient is known to have Crohn's disease as well as history of pancreatitis. The patient had been complaining of flank pain but no significant frequency. No dysuria. The patient had no gross hematuria. MUSCULOSKELETAL: Pain left side of the abdomen and flank. INTEGUMENT: No rash or pruritus. No ecchymosis. HEMATOLOGIC: No history of prolonged bleeding or spontaneous bleeding. ENDOCRINE: Negative. PSYCHIATRIC: History of depression. Also some insomnia. PHYSICAL EXAMINATION: GENERAL: 82-year-old male admitted to the hospital through the emergency room because of right lower lobe pneumonia, diagnosed on 06/09/18 and was prescribed Zithromax 500 mg daily for 3 days. The patient also had complained of abdominal pain which is a chronic problem and had been for years. This patient had been receiving Remicaide every eight weeks, the last dose five weeks ago. This patient visits the emergency room frequently most of the time because of abdominal pain as well as lung pain. There were no findings to indicate any stone since urinalyis without any significant microscopic hematuria. Also had been admitted to the hospital because of hypokalemia. Vital signs on admission to the emergency room temperature 99.4, pulse 105, BP 105/69, respiratory rate 18, oxygen saturation 99. Vital signs on the floor on admission 98.5 temperature oral, pulse 100, BP 129/84, respiratory rate 20, oxygen saturation 100 on room air. He was 5'5", recorded to be 137 lbs and 9 ozs on the floor and the emergency room recorded 134 lbs and 14 ozs. HEENT: Head is unremarkable. Scalp: No active dermatitis. Face is symmetrical and equal with no facial weakness and no significant tenderness in the frontal or maxillary sinus areas. Eyes - the pupils are equal, reactive to light about 3 mm in size. Conjunctivae somewhat pale. Sclerae nonicteric. Mouth - no inflammation. No exudate. No tumor. NECK: Neck has no masses, no tenderness, no bruit. CHEST: Symmetrical and equal with good expansion. Breath sounds are diminished. No rales. HEART: Audible and regular with good tones, no murmurs. ABDOMEN: Flat, soft with some tenderness, generalized with no muscular guarding. Bowel sounds are slightly hyperactive. EXTERNAL GENITALIA: Not examined. LOWER EXTREMITIES: Symmetrical and equal with no significant edema. Pedal pulses will be recorded in the progress notes. UPPER EXTREMITIES: Symmetrical and equal. ASSESSMENT: 1. RIGHT LOWER LOBE PNEUMONIA PER CHEST X-RAY 2. CHRONIC ABDOMINAL PAIN 3. HISTORY OF CROHN'S DISEASE ON REMICAIDE 4. HISTORY OF CHRONIC PANCREATITIS MAYBE AUTOIMMUNE 5. HISTORY OF DEPRESSION 6. HISTORY OF DRUG OVERUSE, NARCOTIC ANALGESICS 7. HISTORY OF FREQUENT VISITS THROUGH THE EMERGENCY ROOM, 14 TIMES AT [facility] SINCE THE BEGINNING OF THE YEAR. PLAN: 1. The patient was given Zithromax 500 mg. Will continue until completed three doses. 2. Add Ceftriaxone to the regimen. TIME SPENT: GREATER THAN 65 MINUTES MTDD
--- NOTE | 2018-07-05 11:34 | DS ---
DATE OF SERVICE: 06/15/18 PATIENT IDENTIFICATION: 32 year old male was admitted to the hospital by the emergency room because of persistent right lower lobe pneumonia. The patient had cough but nonproductive. He also had been afebrile but the patient's chest CT showed right lower lobe pneumonia that was indicated about three days ago 06/09/18 in the emergency room. He at that time was complaining of some abdominal pain as well cough but no fever. Chest x-ray on 06/09/18 showed some haziness in the right lower lobe and he was prescribed Zithromax 500mg PO for three times. He claimed that he was not any better with the medication after three days. He came to the emergency room on 06/12/18, had a low grade temperature 99.4, respiratory rate 18, oxygen saturation 99 on room air, blood pressure 105/69. The patient was not dyspneic or tachypneic. There was no significant cough. the patient on presentation to the emergency room on 06/09/18 was afebrile, temperature 97.7, pulse 102, respiratory rate 20, oxygen saturation 98 at room air and blood pressure 112/76. The patient had taken Tylenol 650mg at home. The patient because of the right lower lobe pneumonia as well as hypokalemia; Potassium 2.56 was admitted to the hospital. LUNGS: Clear to auscultation on both sides although the breath sounds are diminished HEART: Normal sinus rhythm and no murmurs ABDOMEN: Some tenderness but no muscular guarding. Bowels sounds were active to slightly hyperactive. HOSPITAL COURSE: The CBC on 06/12/18 showed a normal WBC , moderate anemia, severe hypokalemia 2.56 potassium, chlorides and sodium normal or near normal. Procalcitonin 0.05, amylase and lipase normal. The patient has been known to have some recurrent pancreatitis in the past. Renal panel as well as liver panel were normal. Urine drug screen was negative except for Benzodiazepine. The patient's temperature had been normal ever since admission except the initial vital signs in the emergency room 99.4. Random urine culture negative for growth. Blood culture negative after 5 days. The patient while in the hospital was given Zithromax 500mg intervenously daily for three days and Rocephin 1 gram daily. LUNGS: Continued to remain clear to auscultation. Serial CBC showed normal WBC until discharge. His Potassium has been returning towards normal and indeed it was normal on discharge, 3.87. This patient had been prescribed K-Dur 20meq tablet twice a day. WBC on discharged was 5,500, his hgb is 11.3, hct 33 lower than probably secondary to hydration. Liver enzymes remained normal and the renal panel is normal with an increasing EGFR, 99 at discharge. No further antibiotic was given to the patient at discharge and he is to reduce the Citalopram to 10mg daily instead of 20mg because of the Tramadol. I told him to make sure that he does information his GI who administers the Remicade every 8 weeks that he had pneumonia right lower lobe from 06/09 until discharge to the hospital on admission of 06/12/18 to . The patient does see a Urologist as well as a GI doctor who give the Remicade. This patient always had some sort of a nausea and this is a chronic problem. He also mentioned that 4-5 bowel movements a day is more or less normal for him. This is probably from the Crohn's disease. This patient had an intestinal surgery where he ended up with an ileostomy. That had been reconnected sometime in 2012. I do not know what was removed. FINAL DIAGNOSES: 1. Right lower lobe pneumonitis, probably viral; WBC normal, Procalcitonin normal and Low grade temperature once. 2. History of Crohn's disease on Remicade 3. Moderate anemia 4. History of pancreatitis, recurrent maybe autoimmune 5. History of Depression 6. History of chronic abdominal pain 7. History of drug abuse and over use 8. History of frequent visits to the emergency room 14 times at [facility] since the beginning of the year TIME SPENT: GREATER THAN 30 MINUTES MTDD
== END 2018-06-15 14:50 | disposition home or self-care (01) | DRG 194 ==
LOC: ED 11:26 → MEDSURG B 13:13 → UNDOADMOB 13:13 → INTOOBSV 13:13 → MEDSURG B 13:13 → OBSVTOIN 13:13 → UNDODISOB 06-15 14:50
PROVIDERS: ADMIT General Practice; ATTEND General Practice
DX: J18.1 Lobar pneumonia, unspecified organism (principal); K50.90 Crohn's disease, unspecified, without complications; R05 Cough; E87.6 Hypokalemia; D64.9 Anemia, unspecified; F32.9 Major depressive disorder, single episode, unspecified
CPT/HCPCS: 36415; 80048; 80053; 80306; 81001; 82150; 83690; 83735; 84145; 85025; 87040; 87086; 93005; 93010; 96361; 96365; 96366; 96367; 96374; 97802; 99284

== ENCOUNTER 2018-06-21 20:46 | Emergency (ER) ==
[2018-06-21 20:46] VITALS: BMI 22.8
[2018-06-21 20:48] VITALS: BP 107/71; TEMP 98.5
--- NOTE | 2018-06-21 21:35 | ED.PDOC ---
General ED Provider: Dr. URMILA TRAMMELL Chief Complaint: Abdominal Pain Stated Complaint: patient comes to the ER with chronic abdominal pain like prior. Recently discharged from the hosptial with pneumonia. Time Seen by Physician: 21:33 Mode of Arrival: Walk-In Information Source: Patient Exam Limitations: No limitations Nursing and Triage Documentation Reviewed and Agree: Yes Does patient meet sepsis criteria?: No System Inflammatory Response Syndrome: Not Applicable Sepsis Protocol: For patient's 13 years and over: Temp is 96.8 and below OR 101 and greater Pulse >90 BPM Resp >20/minute Acutely Altered Mental Status Are patient's symptoms suggestive of a new infection, such as: -Pneumonia -Skin, Soft Tissue -Endocarditis -UTI -Bone, Joint Infection -Implantable Device -Acute Abdominal Infection -Wound Infection -Meningitis -Blood Stream Catheter Infection -Unknown Review of Systems - Review Of Systems Constitutional: Reports: No symptoms Eyes: Reports: No symptoms Ears, Nose, Mouth, Throat: Reports: No symptoms Respiratory: Reports: No symptoms Cardiac: Reports: No symptoms GI: Reports: Abdominal pain, Poor appetite : Reports: No symptoms Musculoskeletal: Reports: No symptoms Skin: Reports: No symptoms Neurological: Reports: No symptoms Endocrine: Reports: No symptoms Hematologic/Lymphatic: Reports: No symptoms All Other Systems: Reviewed and Negative Past Medical History - Past Medical History Previously Healthy: Yes Endocrine: Reports: Hypothyroid, Dyslipidemia Cardiovascular: Reports: None Respiratory: Reports: None Hematological: Reports: None Gastrointestinal: Reports: GERD, Crohn's, Pancreatitis Genitourinary: Reports: Kidney stones Neuro/Psych: Reports: Depression Musculoskeletal: Reports: None Cancer: Reports: None Other Pertinent Past Medical History: Hypokalemia - Surgical History General Surgical History: Reports: Other (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, INTESTINAL RESECTION) - Family History Family History: Reports: Unknown - Social History Smoking Status: Never smoker Hx Substance Use: No Alcohol Screening: None - Immunizations Tetanus Shot up to Date: Yes Influenza Vaccine within 12 Months: Yes Pneumococcal Vaccine up to Date: Yes Physical Exam - Physical Exam Appearance: Ill-appearing Ill-appearing: Mild Pain Distress: Moderate Eyes: DISHA, EOMI, Conjunctiva clear ENT: Nose normal, Oropharynx normal Neck: Supple Respiratory: Airway patent, Breath sounds clear, Breath sounds equal, Respirations nonlabored Cardiovascular: RRR, Pulses normal, No rub, No murmur GI/: Soft, No masses, Bowel sounds normal, No Organomegaly, Tender (mild diffuse) Musculoskeletal: Normal strength, ROM intact, No edema, No calf tenderness Skin: Warm, Dry, Normal color Neurological: Sensation intact, Motor intact, Cranial nerves intact, Alert, Oriented Psychiatric: Anxious Critical Care Note - Critical Care Note Total Time (mins): 0 Course - Course Vital Signs: Temp Pulse Resp BP Pulse Ox 06/21/18 20:46 98.5 F 89 15 107/71 99 Departure - Departure Time of Disposition: 21:34 Disposition: HOME SELF-CARE Discharge Problem: Abdominal pain Instructions: Chronic Abdominal Pain (ED) Condition: Stable Pt referred to PMD for follow-up: Yes IPMP verified?: No Additional Instructions: Take Mediations as prescribed Follow up with PCP in 3 days Prescriptions: Acetaminophen with Codeine [Tylenol #3 Tab] 1 tab PO Q8H #20 tablet Allergies/Adverse Reactions: Allergies No Known Allergies Allergy (Verified 06/21/18 20:48) Home Medications: Ambulatory Orders Zolpidem Tartrate [Ambien] 10 mg PO BEDTIME 03/06/18 Infliximab [Remicade] 100 mg IV DIRECTED 03/13/18 Orphenadrine Citrate [Norflex] 100 mg PO Q12H PRN #20 tablet.er 05/14/18 Ondansetron [Zofran Odt] 4 mg PO Q6HR PRN #10 tab.rapdis 06/09/18 Tramadol HCl [Ultram] 50 mg PO Q6H #10 tablet 06/09/18 Citalopram Hydrobromide [Celexa] 10 mg PO DAILY #1 06/15/18 Potassium Chloride [K-Dur] 20 meq PO BID #60 tab 06/15/18 Tramadol HCl [Ultram] 50 mg PO Q6HR PRN #24 tablet 06/15/18 Acetaminophen with Codeine [Tylenol #3 Tab] 1 tab PO Q8H #20 tablet 06/21/18 Disposition Discussed With: Patient
== END 2018-06-21 21:42 | disposition home or self-care (01) ==
LOC: ED 20:46
DX: R10.9 Unspecified abdominal pain (principal); G89.29 Other chronic pain; Z87.19 Personal history of other diseases of the digestive system
CPT/HCPCS: 99283

== ENCOUNTER 2018-07-02 19:32 | Emergency (ER) ==
[2018-07-02 19:39] VITALS: BP 119/71; TEMP 97.3; BMI 23.9
--- NOTE | 2018-07-02 20:04 | ED.PDOC ---
General ED Provider: Dr. TIARA HUANG Chief Complaint: Abdominal Pain Stated Complaint: Crohn s disease and bouts of chronic pancreatitis in history, Scars from ;revious surgery visible on anterior abdominal wall.Nausea and moderate to. severe abdominal pain episodes,Ate and had fuids today.also soft to loose BMno diarrhea or blood. Time Seen by Physician: 19:35 Mode of Arrival: Walk-In Information Source: Patient Exam Limitations: No limitations Nursing and Triage Documentation Reviewed and Agree: Yes Does patient meet sepsis criteria?: No System Inflammatory Response Syndrome: Not Applicable Sepsis Protocol: For patient's 13 years and over: Temp is 96.8 and below OR 101 and greater Pulse >90 BPM Resp >20/minute Acutely Altered Mental Status Are patient's symptoms suggestive of a new infection, such as: -Pneumonia -Skin, Soft Tissue -Endocarditis -UTI -Bone, Joint Infection -Implantable Device -Acute Abdominal Infection -Wound Infection -Meningitis -Blood Stream Catheter Infection -Unknown GI Complaint Exam - Abdominal Pain Complaint/Exam Onset: Gradual Symptoms Are: Still present Timing: Intermittent Initial Severity: Severe Current Severity: Moderate Location of Pain: Diffuse Radiates To: Reports: LLQ Character: Reports: Cramping, Colicky Aggravating: Reports: None Alleviating: Reports: Rest, Spontaneous resolution Associated Signs and Symptoms: Reports: Decreased appetite, Nausea, Diarrhea, Decreased activity Related History: Reports: Similar episode AAA Risk Factors: Reports: None Cardiac Risk Factors: Reports: None Testicular Torsion Risk Factors: Reports: None Surgical Obstruction Risk Factors: Reports: Prior abdominal surgery Related Surgical History: Reports: Bowel Resection Abdominal Findings: Present: Other Differential Diagnoses: Gastroenteritis, Pancreatitis, Irritable Bowel Syndrome Review of Systems - Review Of Systems Constitutional: Reports: Loss of appetite Eyes: Reports: No symptoms Ears, Nose, Mouth, Throat: Reports: No symptoms Respiratory: Reports: No symptoms Cardiac: Reports: No symptoms GI: Reports: Abdominal pain, Nausea, Poor appetite, Poor fluid intake : Reports: No symptoms Musculoskeletal: Reports: No symptoms Neurological: Reports: No symptoms Endocrine: Reports: No symptoms Hematologic/Lymphatic: Reports: No symptoms All Other Systems: Reviewed and Negative Past Medical History - Past Medical History Previously Healthy: Yes Endocrine: Reports: Hypothyroid, Dyslipidemia Cardiovascular: Reports: None Respiratory: Reports: None Hematological: Reports: None Gastrointestinal: Reports: GERD, Crohn's, Pancreatitis Genitourinary: Reports: Kidney stones Neuro/Psych: Reports: Depression Musculoskeletal: Reports: None Cancer: Reports: None Other Pertinent Past Medical History: Hypokalemia - Surgical History General Surgical History: Reports: Other (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, INTESTINAL RESECTION) - Family History Family History: Reports: Unknown - Social History Smoking Status: Never smoker Hx Substance Use: No Alcohol Screening: None - Immunizations Tetanus Shot up to Date: Yes Influenza Vaccine within 12 Months: Yes Pneumococcal Vaccine up to Date: Yes Physical Exam - Physical Exam Appearance: Well-appearing Ill-appearing: Mild Pain Distress: Mild Eyes: DISHA ENT: Ears normal Neck: Supple Respiratory: Airway patent Cardiovascular: RRR GI/: Soft, Nontender, No masses, Bowel sounds normal Musculoskeletal: Normal strength Skin: Warm, Dry Neurological: Sensation intact, Motor intact Psychiatric: Affect appropriate Critical Care Note - Critical Care Note Total Time (mins): 0 Course - Course Hematology/Chemistry: 07/02/18 20:10 Orders, Labs, Meds: Lab Review 07/02/18 07/02/18 20:08 20:10 WBC 7.06 RBC 3.32 L Hgb 9.9 L Hct 28.9 L MCV 87.0 MCH 29.8 MCHC 34.3 RDW Coeff of Svitlana 13.0 Plt Count 196 Immature Gran % (Auto) 0.3 Neut % (Auto) 50.1 Lymph % (Auto) 34.3 [place] % (Auto) 12.5 H Eos % (Auto) 2.5 Baso % (Auto) 0.3 Immature Gran # (Auto) 0.0 Neut # (Auto) 3.5 Lymph # (Auto) 2.4 [place] # (Auto) 0.9 Eos # (Auto) 0.2 Baso # (Auto) 0.0 Urine Color Yellow Urine Clarity Clear Urine pH 5.5 Ur Specific Palmer 1.020 Urine Protein Negative Urine Glucose (UA) Negative Urine Ketones Negative Urine Blood Negative Urine Nitrite Negative Urine Bilirubin Negative Urine Urobilinogen 0.2 Ur Leukocyte Esterase Negative Orders Category Date Time Status IV [ED IV/MEDIPORT/POWERPORT] .ONCE EMERGENCY 07/02/18 20:05 Active CBC W/ AUTO DIFF Stat LAB 07/02/18 20:10 Completed URINALYSIS WITH MICROSCOPIC Stat LAB 07/02/18 20:08 Completed 0.9 % Sodium Chloride [Saline Flush] MEDS 07/02/18 20:05 Ordered 1 syr IVF PRN PRN Hydromorphone HCl [Dilaudid 0.5 mg/0.5 ml Syringe] MEDS 07/02/18 20:08 Discontinued 0.5 mg IVP ONCE STA Ondansetron HCl/Pf [Zofran 4 mg/2 ml] MEDS 07/02/18 20:07 Discontinued 4 mg IVP ONCE STA Sodium Chloride 0.9% [Sodium Chloride] 1,000 ml MEDS 07/02/18 20:06 Discontinued IV BOLUS Medications Generic Name Dose Route Start Last Admin Trade Name Freq PRN Reason Stop Dose Admin Sodium Chloride 1 syr 07/02/18 20:05 07/02/18 20:18 Saline Flush IVF 1 syr PRN PRN Administration To flush IV Discontinued Medications Generic Name Dose Route Start Last Admin Trade Name Freq PRN Reason Stop Dose Admin Hydromorphone HCl 0.5 mg 07/02/18 20:08 07/02/18 20:20 Dilaudid 0.5 Mg/0.5 Ml Syringe IVP 07/02/18 20:09 0.5 mg ONCE STA Administration Sodium Chloride 1,000 mls @ 1,000 mls/hr 07/02/18 20:06 07/02/18 20:16 Sodium Chloride IV 07/02/18 21:05 1,000 mls/hr BOLUS STA Administration Ondansetron HCl 4 mg 07/02/18 20:07 07/02/18 20:19 Zofran 4 Mg/2 Ml IVP 07/02/18 20:08 4 mg ONCE STA Administration Vital Signs: Temp Pulse Resp BP Pulse Ox 07/02/18 19:33 97.3 F L 100 H 18 119/71 99 Departure - Departure Time of Disposition: 21:43 Disposition: HOME SELF-CARE Discharge Problem: Crohn's disease, small and large intestine Instructions: Abdominal Pain (ED) Condition: Good Pt referred to PMD for follow-up: Yes IPMP verified?: No Additional Instructions: Bentyl 20 mg q 6 h prn #30 tab,Ultram a 100 mg/cap PO bid prn/every 12 hours/.# 25 Allergies/Adverse Reactions: Allergies No Known Allergies Allergy (Verified 07/02/18 19:41) Home Medications: Ambulatory Orders Zolpidem Tartrate [Ambien] 10 mg PO BEDTIME 03/06/18 Infliximab [Remicade] 100 mg IV DIRECTED 03/13/18 Ondansetron [Zofran Odt] 4 mg PO Q6HR PRN #10 tab.rapdis 06/09/18 Citalopram Hydrobromide [Celexa] 10 mg PO DAILY #1 06/15/18 Potassium Chloride [K-Dur] 20 meq PO BID #60 tab 06/15/18 Tramadol HCl [Ultram] 50 mg PO Q6HR PRN #24 tablet 06/15/18 Alprazolam [Xanax] 0.5 mg PO TID 07/02/18 Dicyclomine HCl [Bentyl] 10 mg PO Q8-12H PRN 07/02/18 Disposition Discussed With: Patient
[2018-07-02] MEDS ORDERED: SODIUM CHLORIDE 1,000 ML IV STA (20:06)
[2018-07-02] MEDS ORDERED: ZOFRAN 4 MG/2 ML IVP STA (20:07)
[2018-07-02] MEDS ORDERED: DILAUDID 0.5 MG/0.5 ML SYRINGE IVP STA (20:08)
== END 2018-07-02 21:56 | disposition home or self-care (01) ==
LOC: ED 19:32
DX: K50.80 Crohn's disease of both small and large intestine without complications (principal)
CPT/HCPCS: 36415; 81001; 85025; 96361; 96374; 96375; 99283

== ENCOUNTER 2018-07-07 20:13 | Emergency (ER) ==
[2018-07-07 20:16] VITALS: BP 105/66; TEMP 98.1; BMI 23.3
--- NOTE | 2018-07-07 20:18 | ED.PDOC ---
General ED Provider: Dr. JULEE GONZALEZ-ER Chief Complaint: Abdominal Pain Stated Complaint: i have chrons disease and i am out of ultram--my doctor is trying to get me into pain management Time Seen by Physician: 20:17 Mode of Arrival: Walk-In Information Source: Patient Exam Limitations: No limitations Nursing and Triage Documentation Reviewed and Agree: Yes Does patient meet sepsis criteria?: No System Inflammatory Response Syndrome: Not Applicable Sepsis Protocol: For patient's 13 years and over: Temp is 96.8 and below OR 101 and greater Pulse >90 BPM Resp >20/minute Acutely Altered Mental Status Are patient's symptoms suggestive of a new infection, such as: -Pneumonia -Skin, Soft Tissue -Endocarditis -UTI -Bone, Joint Infection -Implantable Device -Acute Abdominal Infection -Wound Infection -Meningitis -Blood Stream Catheter Infection -Unknown GI Complaint Exam - Abdominal Pain Complaint/Exam Onset: Gradual Duration: several mos Symptoms Are: Still present Timing: Constant Initial Severity: Mild Current Severity: Moderate Location of Pain: Diffuse Character: Reports: Aching, Throbbing, Cramping Aggravating: Reports: None Alleviating: Reports: None Associated Signs and Symptoms: Denies: Diaphoresis, Fever, Cough, Chest pain, Dizziness, Back pain, Constipation, Blood in stool, Dysuria, Urinary frequency, Decreased urine output, Decreased appetite, Discharge, Nausea, Vomiting, Diarrhea, Decreased activity Related History: Reports: Similar episode Abdominal Findings: Present: None Differential Diagnoses: Other Review of Systems - Review Of Systems Constitutional: Reports: No symptoms Eyes: Reports: No symptoms Ears, Nose, Mouth, Throat: Reports: No symptoms Respiratory: Reports: No symptoms Cardiac: Reports: No symptoms GI: Reports: Abdominal pain, Nausea : Reports: No symptoms Musculoskeletal: Reports: No symptoms Skin: Reports: No symptoms Neurological: Reports: No symptoms Endocrine: Reports: No symptoms Hematologic/Lymphatic: Reports: No symptoms All Other Systems: Reviewed and Negative Past Medical History - Past Medical History Previously Healthy: Yes Endocrine: Reports: Hypothyroid, Dyslipidemia Cardiovascular: Reports: None Respiratory: Reports: None Hematological: Reports: None Gastrointestinal: Reports: GERD, Crohn's, Pancreatitis Genitourinary: Reports: Kidney stones Neuro/Psych: Reports: Depression Musculoskeletal: Reports: None Cancer: Reports: None Other Pertinent Past Medical History: Hypokalemia - Surgical History General Surgical History: Reports: Other (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, INTESTINAL RESECTION) - Family History Family History: Reports: Unknown - Social History Smoking Status: Never smoker Hx Substance Use: No Alcohol Screening: None - Immunizations Tetanus Shot up to Date: No Influenza Vaccine within 12 Months: Yes Pneumococcal Vaccine up to Date: Yes Physical Exam - Physical Exam Appearance: Well-appearing, No pain distress, Well-nourished Eyes: DISHA, EOMI, Conjunctiva clear ENT: Ears normal Neck: Supple Respiratory: Airway patent, Breath sounds clear, Breath sounds equal, Respirations nonlabored Cardiovascular: RRR, Pulses normal, No rub, No murmur GI/: Soft, Nontender, No masses, Bowel sounds normal, No Organomegaly Musculoskeletal: Normal strength, ROM intact, No edema, No calf tenderness Skin: Warm, Dry, Normal color Neurological: Sensation intact, Motor intact, Reflexes intact, Cranial nerves intact, Alert, Oriented Psychiatric: Affect appropriate, Mood appropriate Critical Care Note - Critical Care Note Total Time (mins): 0 Course - Course Orders, Labs, Meds: Ephraim has no warning symptoms such has vomiting, fever, or blood in the stool. Vital Signs: Temp Pulse Resp BP Pulse Ox 07/07/18 20:14 98.1 F 112 H 18 105/66 96 Departure - Departure Time of Disposition: 20:18 Disposition: HOME SELF-CARE Discharge Problem: Abdominal pain Instructions: Chronic Abdominal Pain (ED) Condition: Good Pt referred to PMD for follow-up: Yes IPMP verified?: No Additional Instructions: f/u with pcp Allergies/Adverse Reactions: Allergies No Known Allergies Allergy (Verified 07/07/18 20:16) Home Medications: Ambulatory Orders Zolpidem Tartrate [Ambien] 10 mg PO BEDTIME 03/06/18 Infliximab [Remicade] 100 mg IV DIRECTED 03/13/18 Ondansetron [Zofran Odt] 4 mg PO Q6HR PRN #10 tab.rapdis 06/09/18 Citalopram Hydrobromide [Celexa] 10 mg PO DAILY #1 06/15/18 Potassium Chloride [K-Dur] 20 meq PO BID #60 tab 06/15/18 Tramadol HCl [Ultram] 50 mg PO Q6HR PRN #24 tablet 06/15/18 Alprazolam [Xanax] 0.5 mg PO TID 07/02/18 Dicyclomine HCl [Bentyl] 10 mg PO Q8-12H PRN 07/02/18 Tramadol HCl [Ultram] 100 mg PO Q6H #14 tablet 07/07/18 Disposition Discussed With: Patient
== END 2018-07-07 20:29 | disposition home or self-care (01) ==
LOC: ED 20:13
DX: R10.9 Unspecified abdominal pain (principal); G89.29 Other chronic pain; K50.90 Crohn's disease, unspecified, without complications; Z87.19 Personal history of other diseases of the digestive system; E03.9 Hypothyroidism, unspecified; E78.5 Hyperlipidemia, unspecified; Z87.442 Personal history of urinary calculi
CPT/HCPCS: 99282

== ENCOUNTER 2018-07-11 20:26 | Emergency (ER) ==
[2018-07-11 20:28] VITALS: BP 103/69; TEMP 98.9; BMI 25.0
--- NOTE | 2018-07-11 22:04 | ED.PDOC ---
General ED Provider: Dr. TIARA HUANG Chief Complaint: Abdominal Pain Stated Complaint: Crohn disease,no acute distress,patient asking for fluids and Zofran.He also demands opioids Iv.I talked with the staff who know him better as a very frequent patient,He may do with an Ultram for now.No acute abdomen. He had surgery before,however no complications are p[resent now,Patiwnt does not have a nausea and is not dehydrated as judged from his saliuva production, tongue,ocular moisture and nech skin fold,No cough.Not constipated. Time Seen by Physician: 20:35 Mode of Arrival: Walk-In Information Source: Patient Exam Limitations: No limitations Nursing and Triage Documentation Reviewed and Agree: Yes Does patient meet sepsis criteria?: No System Inflammatory Response Syndrome: Not Applicable Sepsis Protocol: For patient's 13 years and over: Temp is 96.8 and below OR 101 and greater Pulse >90 BPM Resp >20/minute Acutely Altered Mental Status Are patient's symptoms suggestive of a new infection, such as: -Pneumonia -Skin, Soft Tissue -Endocarditis -UTI -Bone, Joint Infection -Implantable Device -Acute Abdominal Infection -Wound Infection -Meningitis -Blood Stream Catheter Infection -Unknown GI Complaint Exam - Abdominal Pain Complaint/Exam Duration: intermittent Symptoms Are: Resolved Timing: Intermittent Initial Severity: Mild Current Severity: Mild Location of Pain: Diffuse Character: Reports: Aching Aggravating: Reports: None Alleviating: Reports: Rest, OTC analgesics Related History: Reports: Similar episode AAA Risk Factors: Reports: None Cardiac Risk Factors: Reports: None Testicular Torsion Risk Factors: Reports: None Surgical Obstruction Risk Factors: Reports: Prior abdominal surgery Related Surgical History: Reports: Bowel Resection Abdominal Findings: Present: Other Differential Diagnoses: Diverticulitis, Gastroenteritis, Irritable Bowel Syndrome Review of Systems - Review Of Systems Constitutional: Reports: No symptoms Eyes: Reports: No symptoms, Decreased acuity Ears, Nose, Mouth, Throat: Reports: No symptoms Respiratory: Reports: No symptoms Cardiac: Reports: No symptoms GI: Reports: Nausea : Reports: Hematuria Musculoskeletal: Reports: Muscle pain Skin: Reports: No symptoms Neurological: Reports: No symptoms Endocrine: Reports: No symptoms Hematologic/Lymphatic: Reports: No symptoms All Other Systems: Reviewed and Negative Past Medical History - Past Medical History Previously Healthy: Yes Endocrine: Reports: Hypothyroid, Dyslipidemia Cardiovascular: Reports: None Respiratory: Reports: None Hematological: Reports: None Gastrointestinal: Reports: GERD, Crohn's, Pancreatitis Genitourinary: Reports: Kidney stones Neuro/Psych: Reports: Depression Musculoskeletal: Reports: None Cancer: Reports: None Other Pertinent Past Medical History: Hypokalemia - Surgical History General Surgical History: Reports: Other (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, INTESTINAL RESECTION) - Family History Family History: Reports: Unknown - Social History Smoking Status: Never smoker Hx Substance Use: No Alcohol Screening: None - Immunizations Tetanus Shot up to Date: No Influenza Vaccine within 12 Months: Yes Pneumococcal Vaccine up to Date: Yes Physical Exam - Physical Exam Appearance: Well-appearing Ill-appearing: None Pain Distress: None Eyes: DISHA ENT: Ears normal Neck: Supple Respiratory: Airway patent Cardiovascular: RRR GI/: Soft, Nontender Musculoskeletal: Normal strength Neurological: Sensation intact Psychiatric: Affect appropriate Critical Care Note - Critical Care Note Total Time (mins): 0 Course - Course Vital Signs: Temp Pulse Resp BP Pulse Ox 07/11/18 20:26 98.9 F 120 H 18 103/69 98 Departure - Departure Time of Disposition: 22:14 Disposition: HOME SELF-CARE Discharge Problem: Crohn disease Instructions: Abdominal Pain (ED) Condition: Good Pt referred to PMD for follow-up: Yes IPMP verified?: No Additional Instructions: Ultram tabs ER # 8 tab. Allergies/Adverse Reactions: Allergies No Known Allergies Allergy (Verified 07/11/18 20:28) Home Medications: Ambulatory Orders Zolpidem Tartrate [Ambien] 10 mg PO BEDTIME 03/06/18 Infliximab [Remicade] 100 mg IV DIRECTED 03/13/18 Ondansetron [Zofran Odt] 4 mg PO Q6HR PRN #10 tab.rapdis 06/09/18 Citalopram Hydrobromide [Celexa] 10 mg PO DAILY #1 06/15/18 Potassium Chloride [K-Dur] 20 meq PO BID #60 tab 06/15/18 Tramadol HCl [Ultram] 50 mg PO Q6HR PRN #24 tablet 06/15/18 Alprazolam [Xanax] 0.5 mg PO TID 07/02/18 Dicyclomine HCl [Bentyl] 10 mg PO Q8-12H PRN 07/02/18 Tramadol HCl [Ultram] 100 mg PO Q6H #14 tablet 07/07/18 Disposition Discussed With: Patient
== END 2018-07-11 22:21 | disposition home or self-care (01) ==
LOC: ED 20:26
DX: R10.9 Unspecified abdominal pain (principal); M79.10 Myalgia, unspecified site; K50.90 Crohn's disease, unspecified, without complications
CPT/HCPCS: 99283

== ENCOUNTER 2018-07-15 10:02 | Outpatient (CLI) ==
--- NOTE | 2018-07-15 11:14 | US ---
Exam: Ultrasound of the right lower extremity soft tissues. HISTORY: Palpable knot posterior to the right knee for 1.5 years. Procedures: Transverse and longitudinal real time yeung scale echograms and color Doppler images of t he right lower extremity soft tissues were obtained. Findings: Sonographic evaluation of the soft tissues posterior to the right knee are submitted. In the popliteal fossa there are three hypoechoic collections measuring, the largest is 4.4 cm x 0.9 cm x 1.5 cm with adjacent collections measuring 2.3 cm x 0.9 cm x 1.8 cm and 1.1 cm x 1.4 cm x 1.8 cm. These demonstrate increased through transmission with no internal color flow. Impressions: Three hypoechoic collections as described are identified in the right popliteal fossa. Findings may reflect a Smith's cyst and / or hematomas or seromas. These collections may communicat e. Infection cannot be excluded on the basis of imaging and correlation with the clinical presentati on is needed.
== END 2018-07-15 10:03 | disposition home or self-care (01) ==
LOC: RAD 10:02
PROVIDERS: ATTEND Nurse Practitioner Family
DX: R22.41 Localized swelling, mass and lump, right lower limb (principal)
CPT/HCPCS: 76882

== ENCOUNTER 2018-07-15 10:26 | Emergency (ER) ==
[2018-07-15 10:32] VITALS: BP 118/76; TEMP 99.1; BMI 23.8
== END 2018-07-15 10:40 | disposition left against medical advice (07) ==
LOC: ED 10:26
DX: R10.9 Unspecified abdominal pain (principal); R11.0 Nausea; R19.7 Diarrhea, unspecified; R22.41 Localized swelling, mass and lump, right lower limb
CPT/HCPCS: 76882; 99281

== ENCOUNTER 2018-07-16 08:03 | Emergency (ER) ==
[2018-07-16 08:03] VITALS: BMI 23.8
[2018-07-16 08:09] VITALS: BP 124/85; TEMP 98.3
--- NOTE | 2018-07-16 08:46 | ED.PDOC ---
General ED Provider: Dr. JULEE ACE Chief Complaint: Abdominal Pain Stated Complaint: c/o RLQ abdominal pain. Hx Crohn's. Under care Rachna Milligan at [facility]. Referred to [facility] in [place], [place]. No Apt given. Pain now at 2-3 and want to get medication refilled before pain intensifies. No nausea or vomiting. Chronic diarrhea. States prev Rx for Tramadol and Bentyl which helps with pain. Time Seen by Physician: 08:15 Mode of Arrival: Walk-In Information Source: Patient Exam Limitations: No limitations Primary Care Provider: RACHNA MILLIGAN Nursing and Triage Documentation Reviewed and Agree: Yes Does patient meet sepsis criteria?: No System Inflammatory Response Syndrome: Not Applicable Sepsis Protocol: For patient's 13 years and over: Temp is 96.8 and below OR 101 and greater Pulse >90 BPM Resp >20/minute Acutely Altered Mental Status Are patient's symptoms suggestive of a new infection, such as: -Pneumonia -Skin, Soft Tissue -Endocarditis -UTI -Bone, Joint Infection -Implantable Device -Acute Abdominal Infection -Wound Infection -Meningitis -Blood Stream Catheter Infection -Unknown GI Complaint Exam - Abdominal Pain Complaint/Exam Onset: Gradual Symptoms Are: Still present (but less intense) Timing: Intermittent Initial Severity: Moderate Current Severity: Mild Location of Pain: LUQ Radiates To: Reports: LLQ, RLQ Character: Reports: Aching, Cramping, Colicky Aggravating: Reports: Movement, Food Alleviating: Reports: Medication Associated Signs and Symptoms: Reports: Constipation, Decreased appetite. Denies: Diaphoresis, Fever, Cough, Chest pain, Dizziness, Back pain, Blood in stool, Dysuria, Urinary frequency, Decreased urine output, Discharge, Nausea, Vomiting, Diarrhea, Decreased activity Related History: Reports: Similar episode AAA Risk Factors: Reports: None Cardiac Risk Factors: Reports: None Testicular Torsion Risk Factors: Reports: None Surgical Obstruction Risk Factors: Reports: None Related Surgical History: Reports: None Abdominal Findings: Present: Other (mild tenderness/upper abdomen without guarding ) Differential Diagnoses: Irritable Bowel Syndrome, Other (Crohn's disease) Review of Systems - Review Of Systems Constitutional: Reports: No symptoms Eyes: Reports: No symptoms Ears, Nose, Mouth, Throat: Reports: No symptoms Respiratory: Reports: No symptoms Cardiac: Reports: No symptoms GI: Reports: Abdominal pain, Diarrhea, Difficulty swallowing, Nausea, Poor appetite, Poor fluid intake : Reports: No symptoms Musculoskeletal: Reports: No symptoms Skin: Reports: No symptoms Neurological: Reports: No symptoms Endocrine: Reports: No symptoms Hematologic/Lymphatic: Reports: No symptoms All Other Systems: Reviewed and Negative Past Medical History - Past Medical History Previously Healthy: Yes Endocrine: Reports: Hypothyroid, Dyslipidemia Cardiovascular: Reports: None Respiratory: Reports: None Hematological: Reports: None Gastrointestinal: Reports: GERD, Crohn's, Pancreatitis Genitourinary: Reports: Kidney stones Neuro/Psych: Reports: Depression Musculoskeletal: Reports: None Cancer: Reports: None Other Pertinent Past Medical History: Hypokalemia - Surgical History General Surgical History: Reports: Other (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, INTESTINAL RESECTION) - Family History Family History: Reports: Unknown - Social History Smoking Status: Never smoker Hx Substance Use: No Alcohol Screening: None - Immunizations Tetanus Shot up to Date: Yes Influenza Vaccine within 12 Months: Yes Pneumococcal Vaccine up to Date: Yes Physical Exam - Physical Exam Appearance: Well-appearing, No pain distress, Well-nourished Ill-appearing: Mild Pain Distress: Mild Eyes: DISHA, EOMI, Conjunctiva clear ENT: Ears normal, Nose normal, Oropharynx normal Respiratory: Airway patent, Breath sounds clear, Breath sounds equal, Respirations nonlabored, Rhonchi Cardiovascular: RRR, Pulses normal, No rub, No murmur GI/: Soft, No masses, Bowel sounds normal, No Organomegaly, Tender Musculoskeletal: Normal strength, ROM intact, No edema, No calf tenderness Skin: Warm, Dry, Normal color Neurological: Sensation intact, Motor intact, Reflexes intact, Cranial nerves intact, Alert, Oriented Psychiatric: Affect appropriate, Mood appropriate Critical Care Note - Critical Care Note Total Time (mins): 0 Course - Course Vital Signs: Temp Pulse Resp BP Pulse Ox 07/16/18 08:03 98.3 F 106 H 16 124/85 98 Departure - Departure Time of Disposition: 08:50 Disposition: HOME SELF-CARE Discharge Problem: Abdominal pain, Crohn's disease Instructions: Crohn Disease (ED), Chronic Abdominal Pain (ED) Condition: Good Pt referred to PMD for follow-up: Yes IPMP verified?: No Additional Instructions: Remain on diet for Crohn's Take meds as directed Follow up as needed. Prescriptions: Tramadol HCl 50 mg PO Q6HR PRN #20 tablet PRN Reason: Abdominal Pain Dicyclomine HCl [Bentyl] 1 - 2 mg PO QID PRN #40 capsule PRN Reason: abdomial cramping Allergies/Adverse Reactions: Allergies No Known Allergies Allergy (Verified 07/16/18 08:11) Home Medications: Ambulatory Orders Zolpidem Tartrate [Ambien] 10 mg PO BEDTIME 03/06/18 Infliximab [Remicade] 100 mg IV DIRECTED 03/13/18 Ondansetron [Zofran Odt] 4 mg PO Q6HR PRN #10 tab.rapdis 06/09/18 Citalopram Hydrobromide [Celexa] 10 mg PO DAILY #1 06/15/18 Potassium Chloride [K-Dur] 20 meq PO BID #60 tab 06/15/18 Alprazolam [Xanax] 0.5 mg PO TID 07/02/18 Dicyclomine HCl [Bentyl] 1 - 2 mg PO QID PRN #40 capsule 07/16/18 Tramadol HCl 50 mg PO Q6HR PRN #20 tablet 07/16/18 Disposition Discussed With: Patient
== END 2018-07-16 09:12 | disposition home or self-care (01) ==
LOC: ED 08:03
DX: K50.90 Crohn's disease, unspecified, without complications (principal)
CPT/HCPCS: 99282

== ENCOUNTER 2018-07-23 12:21 | Observation (INO) ==
[2018-07-23 12:25] VITALS: BP 104/76; BMI 24.6
[2018-07-23] MEDS ORDERED: DUONEB NEB STA (12:37)
--- NOTE | 2018-07-23 12:57 | CT ---
EXAM: CT of the chest without contrast. HISTORY: Cough. COMPARISON: 06/12/2018 TECHNIQUE: Contiguous axial images were obtained from the lung apices to the upper abdomen at five m m intervals. The study was performed without contrast IV contrast. Sagittal and coronal reformats were reviewed. CONTRAST: None FINDINGS: Lungs/Airways: The lung windows show no lobar consolidation or effusion. The previously seen airspace opacities in the right lower lobe and posterior segment left lower lobe are no longer seen. There are no suspicious pulmonary nodules. The pulmonary interstitium is normal. The airways are widely patent. There is no pleural thickening. Heart: The heart size is within normal limits. Coronary arteries are unremarkable. Mediastinum/cali: There is no significant mediastinal adenopathy or hilar adenopathy. Chest wall/Thoracic inlet: No masses or adenopathy. Osseus structures: Normal for age. Upper abdomen: Limited views of the upper abdomen are available. The visualized portion of the live r, spleen, pancreas, adrenal glands and kidneys are normal. Additional findings: None IMPRESSION: No acute pulmonary disease. There has been resolution of the air space opacities in the bilateral lo wer lungs seen on the prior study.
--- NOTE | 2018-07-23 14:29 | ED.PDOC ---
General ED Provider: Dr. SHARAN MCHUGH Chief Complaint: Respiratory Complaint Stated Complaint: cough chest pain Time Seen by Physician: 12:39 (seen with rere) Mode of Arrival: Walk-In Information Source: Patient Exam Limitations: No limitations Primary Care Provider: ERIC MILLIGAN Nursing and Triage Documentation Reviewed and Agree: Yes Does patient meet sepsis criteria?: Yes If yes, has appropriate treatment been initiated?: No System Inflammatory Response Syndrome: Not Applicable Sepsis Protocol: For patient's 13 years and over: Temp is 96.8 and below OR 101 and greater Pulse >90 BPM Resp >20/minute Acutely Altered Mental Status Are patient's symptoms suggestive of a new infection, such as: -Pneumonia -Skin, Soft Tissue -Endocarditis -UTI -Bone, Joint Infection -Implantable Device -Acute Abdominal Infection -Wound Infection -Meningitis -Blood Stream Catheter Infection -Unknown Respiratory Complaint Exam - Respiratory Complaint/Exam Onset/Duration: 1 day cough flu like symptoms and chest pain with cough Symptoms Are: Still present Timing: Intermittent Initial Severity: Moderate Current Severity: Mild Location: Chest Character: Reports: Non-productive cough, Dry cough Aggravating: Reports: None Alleviating: Reports: None Associated Signs and Symptoms: Reports: URI, Nasal congestion. Denies: Rapid breathing, Dyspnea, Fever, Chills, Chest pain, Pleuritic chest pain, Wheezing, Hemoptysis, Dizziness, Calf pain, Calf swelling, Edema, Hoarseness, Sinus discomfort, Vomiting, Sore throat, Weight loss, Decreased oral intake, Increased thirst, Increased appetite, Increased urination History of Healthcare-Acquired Pneumonia: No Related Surgical History: Reports: None Pulmonary Embolism Risk Factors: None Cardiac Risk Factors: Reports: Elevated lipids Pseudomonas Risk Factors: Reports: None Tuberculosis Risk Factors: Reports: None Status Asthmaticus Risk Factors: Reports: None Home Oxygen Use: No Recent Stress Test: No Recent Echo/LV Function: No Current Antibiotic Use: No Current Asthma Medication Use: No Respiratory Distress: None Inadequate Respiratory Effort: No Dysphagia Present: No Stridor Present: No JVD Present: No Accessory Muscle Use: No Retractions: Not Present Diminished Breath Sounds: No Sinus Tenderness: None Grunting Respirations: No Kussmaul Respirations: No Differential Diagnoses: Chest Wall Pain, Pneumonia, Bronchitis Non-Traumatic Chest Pain Syncope: EKG Performed Review of Systems - Review Of Systems Constitutional: Reports: No symptoms Eyes: Reports: No symptoms Ears, Nose, Mouth, Throat: Reports: No symptoms Respiratory: Reports: Cough Cardiac: Reports: Chest pain (with cough) GI: Reports: No symptoms : Reports: No symptoms Musculoskeletal: Reports: No symptoms Skin: Reports: No symptoms Neurological: Reports: No symptoms Endocrine: Reports: No symptoms Hematologic/Lymphatic: Reports: No symptoms All Other Systems: Reviewed and Negative Past Medical History - Past Medical History Previously Healthy: Yes Endocrine: Reports: Hypothyroid, Dyslipidemia Cardiovascular: Reports: None Respiratory: Reports: None Hematological: Reports: None Gastrointestinal: Reports: GERD, Crohn's, Pancreatitis Genitourinary: Reports: Kidney stones Neuro/Psych: Reports: Depression Musculoskeletal: Reports: None Cancer: Reports: None Other Pertinent Past Medical History: Hypokalemia - Surgical History General Surgical History: Reports: Other (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, INTESTINAL RESECTION) - Family History Family History: Reports: Unknown - Social History Smoking Status: Never smoker Hx Substance Use: No Alcohol Screening: None - Immunizations Tetanus Shot up to Date: Yes Influenza Vaccine within 12 Months: Yes Pneumococcal Vaccine up to Date: Yes Physical Exam - Physical Exam Appearance: Well-appearing, No pain distress, Well-nourished Eyes: DISHA, EOMI, Conjunctiva clear ENT: Ears normal, Nose normal, Oropharynx normal Respiratory: Airway patent, Breath sounds clear, Breath sounds equal, Respirations nonlabored Cardiovascular: RRR, Pulses normal, No rub, No murmur GI/: Soft, Nontender, No masses, Bowel sounds normal, No Organomegaly Musculoskeletal: Normal strength, ROM intact, No edema, No calf tenderness Skin: Warm, Dry, Normal color Neurological: Sensation intact, Motor intact, Reflexes intact, Cranial nerves intact, Alert, Oriented Psychiatric: Affect appropriate, Mood appropriate Interpretation - Radiology Interpretation Radiology Interpretation By: Radiologist Radiology Results: No acute changes Exam Interpreted: CT Scan - [employer] D[employer] In[employer] Rate: Normal Rhythm: Sinus Ectopy: None - EKG Interpretation Rate: Normal Rhythm: Sinus (normal sinus with right axis deviation) Ectopy: None [place]: Right Re-Evaluation - Re-Evaluation Time of Re-Evaluation: 13:00 Status: Unchanged Vital Signs Stable: Yes Pain Level: 0 Appearance: NAD Lungs: Clear Skin: Warm and Dry Neuro: Alert and Oriented X3 CV: RRR - Re-Evaluation Time of Re-Evaluation: 14:31 Status: Unchanged Vital Signs Stable: Yes Pain Level: 0 Appearance: NAD Skin: Warm and Dry Neuro: Alert and Oriented X3 CV: RRR Critical Care Note - Critical Care Note Total Time (mins): 0 Course - Course Hematology/Chemistry: 07/23/18 12:55 07/23/18 12:55 Orders, Labs, Meds: Lab Review 07/23/18 07/23/18 07/23/18 12:55 12:55 12:55 WBC 8.42 RBC 4.19 L Hgb 12.3 L Hct 36.1 L MCV 86.2 MCH 29.4 MCHC 34.1 RDW Coeff of Svitlana 13.0 Plt Count 332 Immature Gran % (Auto) 0.4 Neut % (Auto) 69.8 Lymph % (Auto) 20.1 [place] % (Auto) 8.9 Eos % (Auto) 0.7 Baso % (Auto) 0.1 Immature Gran # (Auto) 0.0 Neut # (Auto) 5.9 Lymph # (Auto) 1.7 [place] # (Auto) 0.8 Eos # (Auto) 0.1 Baso # (Auto) 0.0 Puncture Site O2 Saturation ABG pH ABG pCO2 ABG pO2 ABG HCO3 ABG Total CO2 ABG Base Excess FiO2 % Sodium 137.9 Potassium 3.95 Chloride 102.0 Carbon Dioxide 22.9 Anion Gap 16.95 BUN 12.3 Creatinine 0.95 Estimated GFR (MDRD) 91.00 BUN/Creatinine Ratio 12.94 Glucose 112.7 H Lactic Acid Calcium 9.66 Total Bilirubin 0.37 AST 30.3 ALT 26.4 Alkaline Phosphatase 117.9 Total Creatine Kinase Troponin I Total Protein 8.00 Albumin 4.85 Globulin 3.15 Albumin/Globulin Ratio 1.53 Lipase Procalcitonin 0.11 07/23/18 07/23/18 07/23/18 12:55 12:55 12:55 WBC RBC Hgb Hct MCV MCH MCHC RDW Coeff of Svitlana Plt Count Immature Gran % (Auto) Neut % (Auto) Lymph % (Auto) [place] % (Auto) Eos % (Auto) Baso % (Auto) Immature Gran # (Auto) Neut # (Auto) Lymph # (Auto) [place] # (Auto) Eos # (Auto) Baso # (Auto) Puncture Site L brach O2 Saturation 97.0 ABG pH 7.502 H* ABG pCO2 29.0 L ABG pO2 84.0 L ABG HCO3 22.7 ABG Total CO2 24 ABG Base Excess 0 FiO2 % 21.0 Sodium Potassium Chloride Carbon Dioxide Anion Gap BUN Creatinine Estimated GFR (MDRD) BUN/Creatinine Ratio Glucose Lactic Acid 1.96 Calcium Total Bilirubin AST ALT Alkaline Phosphatase Total Creatine Kinase 58.3 Troponin I < 0.012 Total Protein Albumin Globulin Albumin/Globulin Ratio Lipase Procalcitonin 07/23/18 12:55 WBC RBC Hgb Hct MCV MCH MCHC RDW Coeff of Svitlana Plt Count Immature Gran % (Auto) Neut % (Auto) Lymph % (Auto) [place] % (Auto) Eos % (Auto) Baso % (Auto) Immature Gran # (Auto) Neut # (Auto) Lymph # (Auto) [place] # (Auto) Eos # (Auto) Baso # (Auto) Puncture Site O2 Saturation ABG pH ABG pCO2 ABG pO2 ABG HCO3 ABG Total CO2 ABG Base Excess FiO2 % Sodium Potassium Chloride Carbon Dioxide Anion Gap BUN Creatinine Estimated GFR (MDRD) BUN/Creatinine Ratio Glucose Lactic Acid Calcium Total Bilirubin AST ALT Alkaline Phosphatase Total Creatine Kinase Troponin I Total Protein Albumin Globulin Albumin/Globulin Ratio Lipase 132.3 Procalcitonin Orders Category Date Time Status ADMIT OBSERVATION [PLACE PATIENT OBSERVATION] .TO ADMISSION 07/23/18 14:58 Active MEDSURG (MONITORED BED) ABG DRAW REQUEST Stat CARDIO 07/23/18 12:37 Completed EKG-(ED ONLY) Stat CARDIO 07/23/18 12:36 Completed EKG-(ED ONLY) Stat CARDIO 07/23/18 14:46 Completed NEBULIZER TREATMENT Stat CARDIO 07/23/18 12:37 Completed ACTIVITY .BR with BRP CARE 07/23/18 14:53 Active TELEMETRY MONITORING TELE CARE 07/23/18 14:59 Active VITAL SIGNS Q8HR CARE 07/23/18 14:53 Active REGULAR DIET DIETARY 07/23/18 Dinner Completed ABG Stat LAB 07/23/18 12:55 Completed BLOOD CULTURE (ED ONLY) Stat LAB 07/23/18 12:55 Results BLOOD CULTURE Stat LAB 07/23/18 13:12 Results CBC W/ AUTO DIFF Stat LAB 07/23/18 12:55 Completed COMPREHENSIVE METABOLIC PANEL Stat LAB 07/23/18 12:55 Completed CREATINE KINASE Stat LAB 07/23/18 12:55 Completed LACTIC ACID Stat LAB 07/23/18 12:55 Completed PROCALCITONIN Stat LAB 07/23/18 12:55 Completed TROPONIN I Stat LAB 07/23/18 12:55 Completed Citalopram Hydrobromide [Celexa] MEDS 07/24/18 09:00 Discontinued 10 mg PO DAILY Ipratropium/Albuterol Neb [Duoneb] MEDS 07/23/18 12:37 Discontinued 1 vial NEB ONCE STA Potassium Chloride [K-Dur] MEDS 07/23/18 21:00 Discontinued 20 meq PO BID Sodium Chloride 0.9% [Sodium Chloride] 1,000 ml MEDS 07/23/18 15:00 Discontinued IV 75 mls/hr CT CHEST W/O CONTRAST Stat RADS 07/23/18 12:35 Completed Medications Discontinued Medications Generic Name Dose Route Start Last Admin Trade Name Freq PRN Reason Stop Dose Admin Albuterol/Ipratropium 1 vial 07/23/18 12:37 07/23/18 13:00 Duoneb NEB 07/23/18 12:38 1 vial ONCE STA Administration Albuterol/Ipratropium 1 vial 07/23/18 18:00 07/23/18 16:45 Duoneb NEB 1 vial [id number] JOSE Administration Citalopram Hydrobromide 10 mg 07/24/18 09:00 Celexa PO DAILY JOSE Sodium Chloride 1,000 mls @ 75 mls/hr 07/23/18 15:00 07/23/18 15:33 Sodium Chloride IV 75 mls/hr .[id number] JOSE Administration Methylprednisolone Sodium Succinate 40 mg 07/23/18 15:23 07/23/18 15:59 Solu-Medrol 40 Mg IVP 07/23/18 15:24 40 mg ONCE STA Administration Potassium Chloride 20 meq 07/23/18 21:00 K-Dur PO BID JOSE Vital Signs: Temp Pulse Resp BP Pulse Ox 07/23/18 12:22 99.2 F 106 H 22 104/76 99 Departure - Departure Time of Disposition: 19:00 Disposition: ADMITTED INPATIENT Discharge Problem: Cough Chest pain Qualifiers: Chest pain type: intercostal pain Qualified Code(s): R07.82 - Intercostal pain Condition: Good Pt referred to PMD for follow-up: Yes IPMP verified?: No Allergies/Adverse Reactions: Allergies No Known Allergies Allergy (Verified 07/23/18 12:29) Home Medications: Ambulatory Orders Zolpidem Tartrate [Ambien] 10 mg PO BEDTIME 03/06/18 Infliximab [Remicade] 100 mg IV DIRECTED 03/13/18 Ondansetron [Zofran Odt] 4 mg PO Q6HR PRN #10 tab.rapdis 06/09/18 Citalopram Hydrobromide [Celexa] 10 mg PO DAILY #1 06/15/18 Potassium Chloride [K-Dur] 20 meq PO BID #60 tab 06/15/18 Alprazolam [Xanax] 0.5 mg PO TID 07/02/18 Dicyclomine HCl [Bentyl] 1 - 2 mg PO QID PRN #40 capsule 07/16/18 Prednisone 40 mg PO DAILYWM 5 Days #10 tablet 07/23/18 Disposition Discussed With: Patient
[2018-07-23] MEDS ORDERED: SODIUM CHLORIDE 1,000 ML IV SCH (15:00)
[2018-07-23] MEDS ORDERED: SOLU-MEDROL 40 MG IVP STA (15:23)
--- NOTE | 2018-07-23 15:35 | PCM ---
- Chief Complaint Chief Complaint: Cough/Chest Wall Pain with cough - History of Present Illness History of Present Illness: 32 yo WM presented to ED today 1239 07/23/18 and was seen by DR. Wolff. Patient PCP listed as Rachna Vergara. Patient was former patient of DR. Lerma, terminated from practice historically for pain medication infractions. Patient has history of crohns, bladder fistula, hypothyroid, hyperlipidemia, GERD, nephrolithiasis, depression,, hypokalemia, chronic pancreatitis, has had subtotal colectomy, colostomy w/ reversal. No history of tobacco, denied marijuana or ETOH. Upon arrival to ER he had temp of 99.2, pulse 106, rr 22, bp 104/76 and pulse ox of 99% on RA. Met SIRS criteria and w/u started. 24 hour cough/flu like symptoms, chest pain w/ cough. Sx still present and intermittent. Moderate severity, non productive dry cough. C/O URI/Nasal congestion. No rapid breathing, BARRETO, Fever, chills, Pleuritic sx, wheezing, hemoptysis, dizzines, calf pain, calf swelling, edema, hoarseness, sinus discomfort, N/V/D, sore throat/weight loss, decreased PO intake. Not on Home O2 , no history of asthma, no history of copd. DDX considered in ER pneumonia, bronchitis, chest wall pain. EKG completed. Physical exam completed in ER, CT scan completed of chest w/o contrast. No pulmonary disease, negative CT (NON CONTRASTED STUDY). Labs showed normal WBC 8.42, mild anemia 12.3, plt normal 332. CMP with normal sodium 137.9, K+ 3.95, BUN 12.3 and Cr 0.95, Glucose 112.7. Normoctyic process for his anemia w/o reported blood loss. Procalcitonin was completed for sepsis w/u and negative. Lactic acid was 1.96 and normal. ABG was completed and pH 7.502, pco02 29, po2 84, hco3 22.7, ufu315 %. Personally review of these data show a Primary respiratory alkalosis with secondary metabolic alkalosis. NO flu was completed, I have ordered influenza, UDS, Lipase to complete my w/u. Reviewed ABG, talked with Dr. Wolff. Patient has been seen in ER 07/16 for ab[address] pain [address] Dr[address] Oliva, 07/[address] Wolff for abdominal pain, 07/11 DR. Howard, 07/[address] Syed, 07/[address] Gabriel cardoza, 06/[address] Brown, 06/[address] Lerma admitted w/ CAP, by Dr. Phillips, 06/02 Dr. Brown abd pain, 05/28 Fern body aches and left kidney pain, 05/14, 05/08 for abd pain/kidney pain. 05/01, 04/14, 04/01, 03/29( head lac), 03/26 Dr. Brown. This represents approximately 18 ER visits in 2019 already. He was transferred to on 04/01/18. He had chest pain at that visit. CT chest then showed no acute findings. Labs almost identical to today. PT/PTT/INR normal. Total CK that day was 179.5. Contacted today to discuss the transfer of patient to their facilty and I have requested the D/C Summary as well as the STress test if completed. He has had cxr 04/01, CT chest 04/01, abd pelvis Ct 05/01, cxr 06/09, abd pelvis ct 06/[address] 06/12/18. CT abd pelvis 06/12/18 no bowel obstruction or acute inflammatory changs seen within abd /pelvis. Chest CT compared to today right lower lobe pneumonia. 07/16/[address] Oliva reviewed: CC abd pain. Hx crohns. Referred pain management in [place]. Chronic N/V/D. Tramadol and bentyl helps with pain. HE was d/c from ER with tramadol and bentyl that day. REHABILITATION CONSTRUCTION SPECIALIST reviewed tramadol by Dr. Oliva #20 on 07/16, #[address] wilmer cardoza 07/12, #[address] syed 07/08, # [address] Romero 07/03/18, Dr. Sirisha stack 07/01, xanax 0.5 TID 07/01, Dr. Brown codeine phosphate/apap 300-30 20 06/22/18, Dr. Phillips 10 tramadol . D/C from Dr. Lerma 06/15 w/ 24 of them, Lalithunterfariha parker 24 on 06/08, #[address] oliva on 06/03, #[address] Oliva on 05/31, Tylenol/codeine #12 on 05/28 , tramadol by Dr. Oliva #20 on 05/14. Dr. Grimm added amphetamine combo to patient on 05/13/18, more tramadol from Jordan Stoll #24 on 05/11/18, Dr. Oliva # 20 on 05/02/18. That was 1/4 of the pages that was reviewed. REviewed d/c summary Dr. Lerma 07/04/18. Admitted form ER due to persistent RLL Pneumonia. Cough, non productive. Afebrile but ct chest showed process. ER 06/12/18 low grade temp 99.4, hypokalemia, was admitted to hospital. Lungs clear thorughout stay. Blood cultures were negative after 5 days. Zithromax 500 IV x 3 days and rocephin 1 gram daily. K+ returned to normal. Nausea chronically throughout hospital, 4-5 BM normally throughout the stay. Frequent/Recurrent ER visits. UDS negative for all, UA appears clear, 04/28/18 N/V, x2 in april, abdominal pain 06/2018 at Er as well. Lipase was negative. ER Discharge 04/02/18. 16:34 obtained ER note04/02/18 and reviewed/summarized this. 32 yr ol patient tx from [facility] w/ abnl ekg and chest pain starting at 1300 on 04/02/18. Hx essentially the same as today. no palpitations, no near sy ncope. No SOA, no barreto, no cough, no wheezing. negative labs and imaging tx due to no cardiology coverage. Left sided discomfort. During transport abdominal pain. H/x crohns. Dr. Harden is GI provider. chronic loose stool baseline. EKG 2014 showed sinus tachy. incomplete right bundle present. Slightly prolonged QT 487. Normal axis. R wave progression normal. No T inversation. Abd imaging negative. They talked with DR. Parmar and pt was d/c safely from ED after tx from our ER. He did not have any f/u from that point. Today: Room 110 I went and saw patient and asked what brought him back to ED today. He noted " I had a mild cough and I did not feel well and wanted to make sure the pneumonia was not back." He noted chest wall pain only with cough. Rates pain at 4/10 and sharp pain but dull at rest. No pressure, no radiation. No arm/ jaw pain. I noted 4 CT in 2019 are dangerous, and he needs to reconsider his recurrent ER visits. I discussed dangers of the radiation and that this is not good for him. He is using our ER as a primary care office and he needs to seek care from his PCP first. Of course our ER will not turn him away but this is not appropriate use of the resource. I reviewed the above with him. He noted no chest pain with activity, no BARRETO, no PND, no orthopnea, no dizziness, minimal post nasal drainage, minimal dry irritant like cough, and abd pain. The pain in abdomen is not any different than the numerous ER visits and he ntoed that today. NO different. He has no chest pain with breathing. He notes that he has some pain in the flanks and pain along the upper rib region with his dry cough. He presented to ED with flu like symptoms. I discussed I would be able to help him with that if Flu + but he has not even had these symptoms more than 24 hours before arrival in ED. Last vitals are fine, afebrile, normotensive, satting perfectly on room air, no distress of any kind. EKG showed QTC of 452 which is borderline. Rightward axis persists, some sinus arrhythmia is present. RSR' in V1 but he is markedly thin and that may be normal variant. ?LAE with sinusoidal P in V1. Otherwise normal appearing EKG. I have reviewed the labs with him today. Normal lipase, minimal anemia that is unchanged from last few reading, actually better than 07/02/18. K+ stable , lipase negative enzymes x 1 negative in ER. I have had them place repeat at 5: 00 which is ~3 hours after first. If negative I plan to send patient home, without pain meds. I discussed the REHABILITATION CONSTRUCTION SPECIALIST. I discussed the need to seek pain management and to get in with chronic opiate specialist. UDS today negative for all despite TID xanax and report of amp salts at some point. Urine is clear, no blood. Flu is negative as of 07/23/18 16:20. I discussed with him that he does not need to be in the hospital for his suspected viral URI with costochondritis. - Review of Systems Constitutional: chills, weakness, sweats, fatigue, loss of appetite. No: fever Eyes: No: blurred vision, double-vision, discharge, itching, pain, redness, photophobia, other Ears: No: pain, bleeding, drainage, ringing, hearing loss, other Nose: congestion, discharge. No: bleeding, other Throat: pain, swelling. No: voice change, other Mouth: No: bleeding, pain, swelling, other Respiratory: cough. No: shortness of air, wheeze, hemoptysis, pain with breathing, other Cardiovascular: chest pain (Flank and chest wall only. No pain with activity, no BARRETO, NO PND, no orthopnea, no peripheral edema. Wells criteria low risk. ). No: left arm pain, diaphoresis, PND, orthopnea, edema, palpitations, syncope, other Gastrointestinal: abdominal pain, nausea, vomiting, diarrhea, other (crohns chronic, reported no new issues. ). No: melena, hematemesis, hematochezia, dysphagia, constipation Genitourinary: No: dysuria, hematuria, frequency, incontinence, flank pain, penile discharge, testicular pain, testicular swelling, other Neurological: No: headache, other, dizziness, seizure, numbness, weakness, speech difficulty, problems with walking, tremor, fainting Musculoskeletal: pain (flank pain/side pain. ) Skin: No: rash, pruritus, lacerations, wounds, bruising, other Immunology: No: hives, itching, frequent infections, difficulty healing, other Hematology: No: easy bruising, easy bleeding, swollen glands, other Endocrine: No: weight changes, cold intolerance, heat intolerance, excessive thirst, excessive hunger, polyuria, other Psychiatric: depression. No: anxiety, sleeplessness, hopelessness, suicidal, hallucinations, other Habits: No: tobacco use, substance use, alcohol use, other - Past Medical History Past Medical History: Crohns, GERD, hypothyroid, dyslipidemia, kidney stones, depression, opiate dependence. Undescended testicle Left (removed). Chronic ambien, chronic xanax. Chronis use of Tramadol. Excessive use of emergency room. Anxiety/depression. - Past Surgical History Past Surgical History: Ileostomy 2007, reversal 2011. Left testicle removed as youth. Lithotripsy -06/2017. - Allergies Allergies/Adverse Reactions: Allergies Allergy/AdvReac Type Severity Reaction Status Date / Time No Known Allergies Allergy Verified 07/23/18 12:29 - Medications Medications: Medications Generic Name Dose Route Start Last Admin Trade Name Freq PRN Reason Stop Dose Admin Albuterol/Ipratropium 1 vial 07/23/18 18:00 Duoneb NEB RTQ6H JOSE Citalopram Hydrobromide 10 mg 07/24/18 09:00 Celexa PO DAILY JOSE Sodium Chloride 1,000 mls @ 75 mls/hr 07/23/18 15:00 07/23/18 15:33 Sodium Chloride IV 75 mls/hr .[id number] JOSE Administration Potassium Chloride 20 meq 07/23/18 21:00 K-Dur PO BID JOSE - Family History Past Family History: Mother alive UC, Father skin scancer. Brother/ SIster each x 1 healthy. No children. - Social History Past Social History: No tobacco, no ETOH, no drugs. Not , not working. NO children. Not sexually active, no known STD historically. - Body Composition Height: 5 ft 3 in Weight: 139 lb 4 oz Body Mass Index (BMI): 24.6 - Physical Examination HEENT: Constitutional: Appearance-No acute distress, Consistent with stated age. Orientation- Oriented x 3, alert Build and Nutrition-[average/normal] General- Patient is pleasant and cooperative with the interview and exam. Integumentary: General-No rashes, ulcers or lesions. Palpation- Normal skin moisture/turgor. Skin is warm to touch, appropriate. Capillary refill is normal bilateral Upper and lower extremity. Head/Neck: Head- normocephalic and atraumatic. Neck- without visible/palpable lumps or pulsations. Palpation- No bony tenderness about head/neck along frontal, occipital, temporal, parietal, mastoid, jawline, zygoma, orbit or any other location. NO temporal artery tenderness. No TMJ tenderness. Neck Supple. Thyroid-No thyromegaly, no nodules Eye: Bilaterally PERRLA, EOMI. No discharge. Upper and lower eyelids are normal. Sclera/conjunctiva normal without discharge. Cornea is normal and clear. Lens is normal. Eyeball appears normal. No ciliary flushing, no conjunctival injection. ENMT: Pinna- normal without tenderness or erythema. External auditory canal Left- normal without erythema or discharge, no excessive cerumen. External auditory canal Right-normal without erythema or discharge, no excessive cerumen. TM left- Jansen/pearly, normal light reflex and anatomy TM Right- Jnasen/ pearly, normal light reflex and anatomy Hearing Assessment-normal to conversational speech. Nose and sinus- No sinus tenderness along frontal/ maxillary region. External appearance normal and midline. Nares- bilateral quiet airflow, no discharge. Nasal mucosa- No bleeding noted and no ulcerations observed. [place], moist. Turbinates mildly boggy/erythematous, no drainage. Lips- normal color, moist without cracks/lesions Oral Cavity/Palate- hard/soft palate intact without lesions, oral mucosa pink and moist. Tongue normal midline. Oropharynx- no pharyngeal erythema, Uvula midline. No post nasal drip. No exudate. Salivary glands- Non tender to palpation CHEST/LUNG: Inspection- symmetric chest wall no pectus deformity. Normal effort , no distress, no use of accessory muscles. Palpation- nontender sternum, ribline. No abnormal pulsations. Auscultation- Breath sounds normal throughout all lung prasad. Normal tracheal sounds, Normal bronchial sounds overlying sternum, Bronchovessicular sounds normal between scapulae posteriorly, Normal vessicular breath sounds heard throughout periphery. Lungs are clear today. Adventitious sounds- No wheezes, rales, rhonchi. *Reproducible chest wall pain ribs 2-5 bilaterally along sterum. Palpation by me created grimace for the patient, which was suspected to be costochondritis. NO change with leaning forward. tenderness costal margin bilaterally and along flank. holding pressure by me onto the flanks when he coughed decreased his pain. CARDIOVASCULAR: Carotid artery- normal, no bruits or abnormal pulsations. Jugular vein- no pulsations. Palpation/Percussion- Normal PMI, no palpable thrill Auscultation- Regular rate and rhythm. No murmur noted in sitting, supine positions. Extremities- no digital clubbing, cyanosis, edema, increased warmth. ABDOMEN: Inspection- normal and no visible pulsations. Normal contour. Auscultation- Bowel sounds hyperactive (chronic) no abdominal bruits. Palpation/ Percussion- soft, tender all quadrants without rebound tenderness, rigidity ( guarding) or jar tenderness, no masses. Liver-no hepatomegaly, Spleen no splenomegaly, Hernias- none. Rectal not examined. Peripheral Vascular: Upper extremity Left- Normal temperature with pink nailbeds and no ulcerations. Upper extremity Right- Normal temperature with pink nailbeds and no ulcerations. Lower extremity- Normal temperature with pink nailbeds and no ulcerations. DP pulses 2+ bilaterally. Pedal hair intact. Normal capillary refill. Edema- No edema. Musculoskeletal: Generalized-No generalized swelling or edema of extremities, no digital clubbing or cyanosis, neurovascularly intact all four extremities. Upper extremity- Symmetrical posture. No visible deformity. Normal sensation along medial and lateral upper extremity proximally and distally. NO tenderness overlying shoulder, lateral/medial epicondyle. 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 Elbow palpated, no tenderness overlying olecranon. Normal supination, pronation to active/passive ROM and to resisted rotation. Bicep insertion/tricep insertion appear normal without obvious pathology. Rotator cuff evaluated and intact. Normal wrist ROM bilaterally. Normal hand movement, intrinsic muscles of hands normal. No tenderness to palpation of hands/wrists/ elbows. Lower extremity- Hip: Not tender to palpation, no pain, no swelling, edema or erythema of surrounding tissue, normal strength and tone. Normal appearing hip ROM bilaterally without pain. Knee: Knee ROM normal. No tenderness overlying trochanters, no tenderness about patella, quad tendon, patellar tendon. No tenderness at tibial tuberosity. Spine/Ribs- No deformities, masses or tenderness, no known fractures, normal strength, Normal ROM. Normal stability No tenderness along C/T/L spine. Normal appearing ROM about spine. Neurological: General- Moves all 4 extremities symmetrically. Symmetrical face and body posture. Cranial nerves- individually evaluated II-XII and intact. PERRLA, Normal EOMI, visual/special senses appear intact, Face is symmetrical and normal sensation/movement, normal tongue, normal strength/posture of neck musculature. Reflexes- intact with DTR 2+ patellar, Achilles, bicep, brachial, tricep. Ankle clonus normal with 2 beats. Strength- 5/5 bilateral UE and LE. Soft touch- intact bilateral UE and LE. Temperature sensation- intact bilateral UE and LE. Neuropsych: Oriented- Person, place, time. (AAOx3), Mood/affect- Flat. Speech- Somber, slow speech, normal tone, normal use of language, volume and coherence. Thought content- Appears to be reasonable aware of current events. No Si/HI. He was not aware he had been to ER that many times. He just goes because he does not feel good. Low understanding. Able to do some basic math/spelling. Associations- intact, no SI/HI, no hallucinations, delusions, obsessions. Judgment/insight- Appropriate. Memory-Recall intact, remote and recent memory intact. Knowledge- Appears limited. Attention normal. Lymphatic: Head/Neck- normal size and non tender to palpation. Axillary- normal size and non tender to palpation. Femoral and Inguinal- normal size and non tender to palpation. - Lab/Tests/Diagnostic Imaging Lab/Tests/Diagnostic Imaging: Laboratory Last Values WBC 8.42 K/ul (4.2-10.2) 07/23/18 12:55 RBC 4.19 10^6/ul (4.70-6.10) L 07/23/18 12:55 Hgb 12.3 g/dl (14.0-18.0) L 07/23/18 12:55 Hct 36.1 % (42.0-52.0) L 07/23/18 12:55 MCV 86.2 fl (80.0-94.0) 07/23/18 12:55 MCH 29.4 pg (27.0-31.0) 07/23/18 12:55 MCHC 34.1 (31.8-35.4) 07/23/18 12:55 RDW Coeff of Svitlana 13.0 % (11.6-14.8) 07/23/18 12:55 Plt Count 332 10^3/uL (140-440) 07/23/18 12:55 Immature Gran % (Auto) 0.4 % (0.0-5.0) 07/23/18 12:55 Neut % (Auto) 69.8 07/23/18 12:55 Lymph % (Auto) 20.1 (10.0-50.0) 07/23/18 12:55 [place] % (Auto) 8.9 (0-10) 07/23/18 12:55 Eos % (Auto) 0.7 % (0.0-7.0) 07/23/18 12:55 Baso % (Auto) 0.1 % (0.0-3.0) 07/23/18 12:55 Immature Gran # (Auto) 0.0 (0.0-1.0) 07/23/18 12:55 Neut # (Auto) 5.9 K/ul (2.0-6.9) 07/23/18 12:55 Lymph # (Auto) 1.7 K/uL (0.60-3.4) 07/23/18 12:55 [place] # (Auto) 0.8 K/uL (0.4-2.0) 07/23/18 12:55 Eos # (Auto) 0.1 K/ul (0.0-0.7) 07/23/18 12:55 Baso # (Auto) 0.0 K/uL (0-0.2) 07/23/18 12:55 Puncture Site L brach 07/23/18 12:55 O2 Saturation 97.0 % (95-100) 07/23/18 12:55 ABG pH 7.502 (7.35-7.45) H* 07/23/18 12:55 ABG pCO2 29.0 mmHg (35-45) L 07/23/18 12:55 ABG pO2 84.0 mmHg (85-100) L 07/23/18 12:55 ABG HCO3 22.7 (22.0-26.0) 07/23/18 12:55 ABG Total CO2 24 (22.0-28.0) 07/23/18 12:55 ABG Base Excess 0 (-2.0-2.0) 07/23/18 12:55 FiO2 % 21.0 % 07/23/18 12:55 Sodium 137.9 mmol/L (134.5-145) 07/23/18 12:55 Potassium 3.95 mmol/L (3.5-5.1) 07/23/18 12:55 Chloride 102.0 mmol/L (98-107) 07/23/18 12:55 Carbon Dioxide 22.9 mmol/L (22-30.0) 07/23/18 12:55 Anion Gap 16.95 07/23/18 12:55 BUN 12.3 mg/dL (9-20) 07/23/18 12:55 Creatinine 0.95 mg/dL (0.60-1.10) 07/23/18 12:55 Estimated GFR (MDRD) 91.00 mL/min 07/23/18 12:55 BUN/Creatinine Ratio 12.94 07/23/18 12:55 Glucose 112.7 mg/dL (74-106) H 07/23/18 12:55 Lactic Acid 1.96 mmol/L (0.7-2.1) 07/23/18 12:55 Calcium 9.66 mg/dL (8.4-10.2) 07/23/18 12:55 Total Bilirubin 0.37 mg/dL (0.2-1.3) 07/23/18 12:55 AST 30.3 U/L (17-59) 07/23/18 12:55 ALT 26.4 U/L (0-50) 07/23/18 12:55 Alkaline Phosphatase 117.9 U/L (38-126) 07/23/18 12:55 Total Creatine Kinase 58.3 U/L (55-170) 07/23/18 12:55 Troponin I < 0.012 ng/ml (0.0000-0.120) 07/23/18 12:55 Total Protein 8.00 g/dL (6.3-8.2) 07/23/18 12:55 Albumin 4.85 g/dL (3.5-5.0) 07/23/18 12:55 Globulin 3.15 07/23/18 12:55 Albumin/Globulin Ratio 1.53 07/23/18 12:55 Lipase 132.3 U/L (23-300) 07/23/18 12:55 Procalcitonin 0.11 ng/mL (<0.05) 07/23/18 12:55 Urine Color Yellow (YELLOW) 07/23/18 15:10 Urine Clarity Clear (CLEAR) 07/23/18 15:10 Urine pH 5.5 (5-9) 07/23/18 15:10 Ur Specific [place] 1.020 (1.005-1.030) 07/23/18 15:10 Urine Protein Negative (NEGATIVE) 07/23/18 15:10 Urine Glucose (UA) Negative (NEGATIVE) 07/23/18 15:10 Urine Ketones Trace (NEGATIVE) 07/23/18 15:10 Urine Blood Negative (NEGATIVE) 07/23/18 15:10 Urine Nitrite Negative (NEGATIVE) 07/23/18 15:10 Urine Bilirubin Negative (NEGATIVE) 07/23/18 15:10 Urine Urobilinogen 0.2 (0.2) 07/23/18 15:10 Ur Leukocyte Esterase Negative (NEGATIVE) 07/23/18 15:10 Urine Opiates Screen Negative (NEGATIVE) 07/23/18 15:10 Ur Oxycodone Screen Negative (NEGATIVE) 07/23/18 15:10 Urine Methadone Screen Negative (NEGATIVE) 07/23/18 15:10 Ur Propoxyphene Screen Negative (NEGATIVE) 07/23/18 15:10 Ur Barbiturates Screen Negative (NEGATIVE) 07/23/18 15:10 U Tricyclic Antidepress Negative (NEGATIVE) 07/23/18 15:10 Ur Phencyclidine Scrn Negative (NEGATIVE) 07/23/18 15:10 Ur Amphetamine Screen Negative (NEGATIVE) 07/23/18 15:10 U Methamphetamines Scrn Negative (NEGATIVE) 07/23/18 15:10 U Benzodiazepines Scrn Negative (NEGATIVE) 07/23/18 15:10 Urine Cocaine Screen Negative (NEGATIVE) 07/23/18 15:10 U Cannabinoids Screen Negative (NEGATIVE) 07/23/18 15:10 Influ A Molecular Assay Negative by naat (NEGATIVE) 07/23/18 16:20 Influ B Molecular Assay Negative by naat (NEGATIVE) 07/23/18 16:20 CT chest: negative EKG personally: Unchanged reviewed Sinus arrhythmia, Rightward axis, incomplete RBBB RsR' v1 may be normal variant as he is thin. QTC 452 and borderline. outpatient stress is likely reasonable for patient. ABG: PErsonally reviewed and resp alk w/ met alk. - Assessment (1) Cough Status: Acute Code(s): R05 - COUGH SNOMED Code(s): 63613312 (2) Costochondritis Status: Acute Code(s): M94.0 - CHONDROCOSTAL JUNCTION SYNDROME [TIETZE] SNOMED Code(s): 74782700 (3) Chest pain Status: Acute Code(s): R07.9 - CHEST PAIN, UNSPECIFIED SNOMED Code(s): 83582602 Qualifiers: Chest pain type: intercostal pain Qualified Code(s): R07.82 - Intercostal pain (4) Chronic prescription opiate use Status: Acute Code(s): Z79.891 - GROUP HOME (CURRENT) USE OF OPIATE ANALGESIC SNOMED Code(s): 921027054 (5) Normocytic anemia Status: Chronic Code(s): D64.9 - ANEMIA, UNSPECIFIED SNOMED Code(s): 768963506 - Plan Plan: Chest Pain/Costochondritis: No clinical suspicion of ACS based on presentation. Patient has reproducible chest wall pain, negative enzymes x 1, negative CT scan , EKG that is unchanged from ER visit w/ transfer to [facility], [place] and cleared/ released by cardiology with essentially the same story. He has no BARRETO, no PND, no orthopnea, essentially no symptoms of any kind other than dry cough for ~24 hours. He has had pneumonia within last 30 days. HOwever, CT is negative, procalc negative, lactic acid negative. The patient is resting in bed and noted he just did not feel good today so he came in. He has a dry cough that is likely allergic/early viral URI. He has costochondral pain/flank pain worse with cough but he has no red flags on history/exam. Reviewed labs from the numerous ER visits, the numerous CT scans that he has had in 2019 alone and I discussed at length that he needs to f/u with PCP first before going to the ER ( again noted our ER would not turn him away and would see him). I reviewed DR. Lerma D/C summary, D/C summary from 04/02/18 and patient does not require a hospital admission at this point. The patient will get another set of troponins at 5:00 PM tonight and if negative I will discharge him home with instruction f/u as needed w/ PCP early next week or return to ER if he feels it is urgent. I will not d/c with pain meds. UDS was kelley negative, which was odd for a patient on xanax TID. We discussed typical examination and history findings for chest pain and heart attack today. We discussed that multiple organ systems can be the cause for this complaint. We reviewed possible causes to include cardiac etiologies: ACS , pericarditis, pericardial effusion, respiratory issues to include bronchitis/ asthma/COPD/bronchospasm, PE (No SOA, no BARRETO, LOW LIKELIHOOD OF PE/DVT based on Wells score 0 (1.3%)), GI problems to include esophageal spasm/achalasia, Hiatal hernia, GERD, PUD, Liver disease/pancreatic disease, renal disease. Reviewed labs and imaging as listed. Low risk of ACS, I will safely discharge him home. - Working diagnosis viral URI with cough - Working diagnosis of costochondritis - If repeat Troponin negative at 1700 d/c home. - EKG compared to previous ekg - REviewed D/C from Dr. Downs and From - Telemetry so far negative Mild anemia: Chronic/unchanged and better than last recorded levels. Monitor. Chronic Crohns: Unchanged, no medication changes, resume home meds. Reported N/V /D, unchanged. Allergic Rhinitis/Viral URI: Acute URI suspect viral process. DDX includes viruses to include mirza, adeno, parainfluenza, rhinovirus, noninfectious rhinitis (vasomotor and allergic). No e/o pneumonia. Reviewed sick contacts, reviewed recent travel. Avoidance of all tobacco encouraged today. Discussed abx not recommended for this treatment at present. The patient voiced understanding. If no improvement in 3-5 days or worsening, they should contact their PCP Rachna Vergara for an OV. Regarding #1 above, will d/c home with steroids by mouth. Steroids by mouth d/w patient to include R/B/A. Nasal GC R/ B/A d/w patient. A few OTC options d/w patient. Can consider Zyrtec every am. DayQuil per package insert discussed, concern with any BP elevation or history of HTN, DM, CAD. If no better in 3-5 days or if worsening call and we will consider to start abx. Risks/benefits of current and new medications discussed with the patient today. The patient is aware if there any side effects they should stop meds and call or return to clinic. Appropriate F/U discussed. All questions answered to satisfactory state of patient. Patient left ambulatory. Hand washing d/w patient. Cover sneezes/cough. Avoid work/school for 24 hours if Temp >100.4. DVT Prophy: UP ad cris. Disposition: >70 minutes spent on this patient admission today. Reviewed numerous admits. ER reported ACS like symptoms, then the HPI reported flu like symptoms. Flu was negative, afebrile, no reported MASSEY, no obvious myalgias so flu has low clinical suspicion as well. The pt vitals are normal/stable, EKG unchanged from 03/2018, Enzymes neg x1, repeat at 17:00. CT chest negative, lipase negative, mild anemia. Current plan d/c patient home with negative troponin. Discharge orders placed 18:18 after troponin #2 negative. Again low risk PE, low risk ACS. Cough/uri and costochondritis most likely. F/U PCP in 5 -7 days. Needs to see pain management.
[2018-07-23 15:37] VITALS: TEMP 98.1
[2018-07-23] MEDS ORDERED: DUONEB NEB ONE (16:54)
[2018-07-23] MEDS ORDERED: DUONEB NEB SCH (18:00)
--- NOTE | 2018-07-23 18:22 | PCM.DC ---
Final Diagnosis: URI with cough Costochondritis Chronic normocytic anemia Chronic opiate use Chronic benzo use Observation 07/23/18 Dr. Salas Discharge 07/23/18 Dr. Salas (1) Cough Status: Acute Code(s): R05 - COUGH SNOMED Code(s): 88326769 (2) Costochondritis Status: Acute Code(s): M94.0 - CHONDROCOSTAL JUNCTION SYNDROME [TIETZE] SNOMED Code(s): 57440137 (3) Chest pain Status: Acute Code(s): R07.9 - CHEST PAIN, UNSPECIFIED SNOMED Code(s): 67940178 Qualifiers: Chest pain type: intercostal pain Qualified Code(s): R07.82 - Intercostal pain (4) Chronic prescription opiate use Status: Acute Code(s): Z79.891 - GROUP HOME (CURRENT) USE OF OPIATE ANALGESIC SNOMED Code(s): 853619056 (5) Normocytic anemia Status: Chronic Code(s): D64.9 - ANEMIA, UNSPECIFIED SNOMED Code(s): 945035122 Reason for Hospitalization: Cough, chest wall pain with cough, incomplete RBB, pneumonia with recent hospitalization, chronic chrons, chronic normocytic anemia. Repeat ED use, chronic opiate use. Prognosis at Discharge: Good. Suspect viral uri with cough and chest wall reproducible pain consistent with costochondritis. Low risk of ACS. Low risk of PE based on wells criteria Condition at Discharge: Stable. Numerous ER visits 2019, numerous CT scans 2019. NO acute findings on labs/ct chest today. Sx do not seem different than prior ER visits. EMPLOYEE RELATIONS ADMINISTRATOR printed/scanned. records from 04/01 transfer of patient for same/similar symptoms not felt to be ACS and discharged scanned into file as well. Medications at Discharge: Ambulatory Orders Medication Instructions Recorded Zolpidem Tartrate [Ambien] 10 mg PO BEDTIME 03/06/18 Infliximab [Remicade] 100 mg IV DIRECTED 03/13/18 Ondansetron [Zofran Odt] 4 mg PO Q6HR PRN #10 tab.rapdis 06/09/18 Citalopram Hydrobromide [Celexa] 10 mg PO DAILY #1 06/15/18 Potassium Chloride [K-Dur] 20 meq PO BID #60 tab 06/15/18 Alprazolam [Xanax] 0.5 mg PO TID 07/02/18 Dicyclomine HCl [Bentyl] 1 - 2 mg PO QID PRN #40 capsule 07/16/18 Prednisone 40 mg PO DAILYWM 5 Days #10 tablet 07/23/18 Lab/Diagnostics: Laboratory Last Values WBC 8.42 K/ul (4.2-10.2) 07/23/18 12:55 RBC 4.19 10^6/ul (4.70-6.10) L 07/23/18 12:55 Hgb 12.3 g/dl (14.0-18.0) L 07/23/18 12:55 Hct 36.1 % (42.0-52.0) L 07/23/18 12:55 MCV 86.2 fl (80.0-94.0) 07/23/18 12:55 MCH 29.4 pg (27.0-31.0) 07/23/18 12:55 MCHC 34.1 (31.8-35.4) 07/23/18 12:55 RDW Coeff of Svitlana 13.0 % (11.6-14.8) 07/23/18 12:55 Plt Count 332 10^3/uL (140-440) 07/23/18 12:55 Immature Gran % (Auto) 0.4 % (0.0-5.0) 07/23/18 12:55 Neut % (Auto) 69.8 07/23/18 12:55 Lymph % (Auto) 20.1 (10.0-50.0) 07/23/18 12:55 [place] % (Auto) 8.9 (0-10) 07/23/18 12:55 Eos % (Auto) 0.7 % (0.0-7.0) 07/23/18 12:55 Baso % (Auto) 0.1 % (0.0-3.0) 07/23/18 12:55 Immature Gran # (Auto) 0.0 (0.0-1.0) 07/23/18 12:55 Neut # (Auto) 5.9 K/ul (2.0-6.9) 07/23/18 12:55 Lymph # (Auto) 1.7 K/uL (0.60-3.4) 07/23/18 12:55 [place] # (Auto) 0.8 K/uL (0.4-2.0) 07/23/18 12:55 Eos # (Auto) 0.1 K/ul (0.0-0.7) 07/23/18 12:55 Baso # (Auto) 0.0 K/uL (0-0.2) 07/23/18 12:55 Puncture Site L brach 07/23/18 12:55 O2 Saturation 97.0 % (95-100) 07/23/18 12:55 ABG pH 7.502 (7.35-7.45) H* 07/23/18 12:55 ABG pCO2 29.0 mmHg (35-45) L 07/23/18 12:55 ABG pO2 84.0 mmHg (85-100) L 07/23/18 12:55 ABG HCO3 22.7 (22.0-26.0) 07/23/18 12:55 ABG Total CO2 24 (22.0-28.0) 07/23/18 12:55 ABG Base Excess 0 (-2.0-2.0) 07/23/18 12:55 FiO2 % 21.0 % 07/23/18 12:55 Sodium 137.9 mmol/L (134.5-145) 07/23/18 12:55 Potassium 3.95 mmol/L (3.5-5.1) 07/23/18 12:55 Chloride 102.0 mmol/L (98-107) 07/23/18 12:55 Carbon Dioxide 22.9 mmol/L (22-30.0) 07/23/18 12:55 Anion Gap 16.95 07/23/18 12:55 BUN 12.3 mg/dL (9-20) 07/23/18 12:55 Creatinine 0.95 mg/dL (0.60-1.10) 07/23/18 12:55 Estimated GFR (MDRD) 91.00 mL/min 07/23/18 12:55 BUN/Creatinine Ratio 12.94 07/23/18 12:55 Glucose 112.7 mg/dL (74-106) H 07/23/18 12:55 Lactic Acid 1.96 mmol/L (0.7-2.1) 07/23/18 12:55 Calcium 9.66 mg/dL (8.4-10.2) 07/23/18 12:55 Total Bilirubin 0.37 mg/dL (0.2-1.3) 07/23/18 12:55 AST 30.3 U/L (17-59) 07/23/18 12:55 ALT 26.4 U/L (0-50) 07/23/18 12:55 Alkaline Phosphatase 117.9 U/L (38-126) 07/23/18 12:55 Total Creatine Kinase 58.3 U/L (55-170) 07/23/18 12:55 Troponin I < 0.012 ng/ml (0.0000-0.120) 07/23/18 17:12 Total Protein 8.00 g/dL (6.3-8.2) 07/23/18 12:55 Albumin 4.85 g/dL (3.5-5.0) 07/23/18 12:55 Globulin 3.15 07/23/18 12:55 Albumin/Globulin Ratio 1.53 07/23/18 12:55 Lipase 132.3 U/L (23-300) 07/23/18 12:55 Procalcitonin 0.11 ng/mL (<0.05) 07/23/18 12:55 Urine Color Yellow (YELLOW) 07/23/18 15:10 Urine Clarity Clear (CLEAR) 07/23/18 15:10 Urine pH 5.5 (5-9) 07/23/18 15:10 Ur Specific [place] 1.020 (1.005-1.030) 07/23/18 15:10 Urine Protein Negative (NEGATIVE) 07/23/18 15:10 Urine Glucose (UA) Negative (NEGATIVE) 07/23/18 15:10 Urine Ketones Trace (NEGATIVE) 07/23/18 15:10 Urine Blood Negative (NEGATIVE) 07/23/18 15:10 Urine Nitrite Negative (NEGATIVE) 07/23/18 15:10 Urine Bilirubin Negative (NEGATIVE) 07/23/18 15:10 Urine Urobilinogen 0.2 (0.2) 07/23/18 15:10 Ur Leukocyte Esterase Negative (NEGATIVE) 07/23/18 15:10 Urine Opiates Screen Negative (NEGATIVE) 07/23/18 15:10 Ur Oxycodone Screen Negative (NEGATIVE) 07/23/18 15:10 Urine Methadone Screen Negative (NEGATIVE) 07/23/18 15:10 Ur Propoxyphene Screen Negative (NEGATIVE) 07/23/18 15:10 Ur Barbiturates Screen Negative (NEGATIVE) 07/23/18 15:10 U Tricyclic Antidepress Negative (NEGATIVE) 07/23/18 15:10 Ur Phencyclidine Scrn Negative (NEGATIVE) 07/23/18 15:10 Ur Amphetamine Screen Negative (NEGATIVE) 07/23/18 15:10 U Methamphetamines Scrn Negative (NEGATIVE) 07/23/18 15:10 U Benzodiazepines Scrn Negative (NEGATIVE) 07/23/18 15:10 Urine Cocaine Screen Negative (NEGATIVE) 07/23/18 15:10 U Cannabinoids Screen Negative (NEGATIVE) 07/23/18 15:10 Influ A Molecular Assay Negative by naat (NEGATIVE) 07/23/18 16:20 Influ B Molecular Assay Negative by naat (NEGATIVE) 07/23/18 16:20 CT chest negative ABG resp alk with metab alk. EKG incomplete RBB sinus arhythmia, Rsr' v1. Education Provided to Patient and Family: 1. D/C home 2. Prednisone 40mg daily x 5 day 3. F/U with pcp in 1 week 4. OTC symptomatic control for cough/cold/allergy 5. F/U with PCP first before ER unless emergent issue. 6. F/U with pain management. 7. EMPLOYEE RELATIONS ADMINISTRATOR reviewed. 8. No opiates will be written at d/c. 9. Symptoms do nto sound/appear to be any different than those over past 4 months. 10. Keep f/u with GI provider. Follow-ups: 1. Rachna Vergara 5-7 days. Disposition: HOME SELF-CARE Hospital Course: 32 yo WM presented to ED today with ~24 hours cough, mild URI symptoms and reproducible chest wall pain. EKG showed Rightward axis, incomplete RBB, RsR' v1. He had CT chest negative. CBC showed chronic normocytic anemia. CMP unremarkable. Troponin negative in ER, I repeated this at ~4 hours after original and it was negative. Reviewed [facility] transfer ER note where patient had same EKG findings, same chest pain sx and was d/c as again this was not acute coronary syndrome. With negative CT, negative procalcitonon, negative lactic acid, ABG showed respiratory alkalosis with metabolic alkalosis, patient will be d/c home. Abnormal UDS with negative for all. This was odd because he noted TID use of xanax. No opiates given this visit, no tramadol given this visit. EMPLOYEE RELATIONS ADMINISTRATOR reviewed, ER notes reviewed and numerous frequent visis to ER. Discussed use of resources, discussed risks of radiation. Chronic chrons, unchanged. Flu like symptoms w/ negative molecular flu. Low risk of ACS, low risk of PE ( modified wells), troponin negative x 2, EKG similar to that 03/2018. I do not think he requires further hospital w/u. Health maximized with this hospital observation and patient will be d/c home tonight. Again 5 CT in 2019, ~18-21 ER visits, numerous pain med refills. He has had ~24 hours of URI symptoms and chest wall pain is reproducible. Oral steroids r/b/a d/w patient. F/U w/ PCP in 5-7 days. Keep appt w/ GI provider. N/V/D unchanged/baseline. Vitals on floor were great. Vital Signs - 24 hr 07/23/18 07/23/18 12:22 15:28 Temperature 99.2 F 98.1 F Pulse Rate 106 H 81 Pulse Rate [ 74 Apical] Respiratory 22 16 Rate Blood Pressure 104/76 O2 Sat by Pulse 99 100 Oximetry Constitutional: Appearance-No acute distress, Consistent with stated age. Orientation- Oriented x 3, alert Build and Nutrition-[average/normal] General- Patient is pleasant and cooperative with the interview and exam. Integumentary: General-No rashes, ulcers or lesions. Palpation- Normal skin moisture/turgor. Skin is warm to touch, appropriate. Capillary refill is normal bilateral Upper and lower extremity. Head/Neck: Head- normocephalic and atraumatic. Neck- without visible/palpable lumps or pulsations. Palpation- No bony tenderness about head/neck along frontal, occipital, temporal, parietal, mastoid, jawline, zygoma, orbit or any other location. NO temporal artery tenderness. No TMJ tenderness. Neck Supple. Thyroid-No thyromegaly, no nodules Eye: Bilaterally PERRLA, EOMI. No discharge. Upper and lower eyelids are normal. Sclera/conjunctiva normal without discharge. Cornea is normal and clear. Lens is normal. Eyeball appears normal. No ciliary flushing, no conjunctival injection. ENMT: Pinna- normal without tenderness or erythema. External auditory canal Left- normal without erythema or discharge, no excessive cerumen. External auditory canal Right-normal without erythema or discharge, no excessive cerumen. TM left- Jansen/pearly, normal light reflex and anatomy TM Right- Jansen/ pearly, normal light reflex and anatomy Hearing Assessment-normal to conversational speech. Nose and sinus- No sinus tenderness along frontal/ maxillary region. External appearance normal and midline. Nares- bilateral quiet airflow, no discharge. Nasal mucosa- No bleeding noted and no ulcerations observed. [place], moist. Turbinates mildly boggy/erythematous, no drainage. Lips- normal color, moist without cracks/lesions Oral Cavity/Palate- hard/soft palate intact without lesions, oral mucosa pink and moist. Tongue normal midline. Oropharynx- no pharyngeal erythema, Uvula midline. No post nasal drip. No exudate. Salivary glands- Non tender to palpation CHEST/LUNG: Inspection- symmetric chest wall no pectus deformity. Normal effort , no distress, no use of accessory muscles. Palpation- nontender sternum, ribline. No abnormal pulsations. Auscultation- Breath sounds normal throughout all lung prasad. Normal tracheal sounds, Normal bronchial sounds overlying sternum, Bronchovessicular sounds normal between scapulae posteriorly, Normal vessicular breath sounds heard throughout periphery. Lungs are clear today. Adventitious sounds- No wheezes, rales, rhonchi. *Reproducible chest wall pain ribs 2-5 bilaterally along sterum. Palpation by me created grimace for the patient, which was suspected to be costochondritis. NO change with leaning forward. tenderness costal margin bilaterally and along flank. holding pressure by me onto the flanks when he coughed decreased his pain. CARDIOVASCULAR: Carotid artery- normal, no bruits or abnormal pulsations. Jugular vein- no pulsations. Palpation/Percussion- Normal PMI, no palpable thrill Auscultation- Regular rate and rhythm. No murmur noted in sitting, supine positions. Extremities- no digital clubbing, cyanosis, edema, increased warmth. ABDOMEN: Inspection- normal and no visible pulsations. Normal contour. Auscultation- Bowel sounds hyperactive (chronic) no abdominal bruits. Palpation/ Percussion- soft, tender all quadrants without rebound tenderness, rigidity ( guarding) or jar tenderness, no masses. Liver-no hepatomegaly, Spleen no splenomegaly, Hernias- none. Rectal not examined. Peripheral Vascular: Upper extremity Left- Normal temperature with pink nailbeds and no ulcerations. Upper extremity Right- Normal temperature with pink nailbeds and no ulcerations. Lower extremity- Normal temperature with pink nailbeds and no ulcerations. DP pulses 2+ bilaterally. Pedal hair intact. Normal capillary refill. Edema- No edema. Musculoskeletal: Generalized-No generalized swelling or edema of extremities, no digital clubbing or cyanosis, neurovascularly intact all four extremities. Upper extremity- Symmetrical posture. No visible deformity. Normal sensation along medial and lateral upper extremity proximally and distally. NO tenderness overlying shoulder, lateral/medial epicondyle. Steam Oven Operator 5/5 and strength 5/5 bilateral UE. Elbow palpated, no tenderness overlying olecranon. Normal supination, pronation to active/passive ROM and to resisted rotation. Bicep insertion/tricep insertion appear normal without obvious pathology. Rotator cuff evaluated and intact. Normal wrist ROM bilaterally. Normal hand movement, intrinsic muscles of hands normal. No tenderness to palpation of hands/wrists/ elbows. Lower extremity- Hip: Not tender to palpation, no pain, no swelling, edema or erythema of surrounding tissue, normal strength and tone. Normal appearing hip ROM bilaterally without pain. Knee: Knee ROM normal. No tenderness overlying trochanters, no tenderness about patella, quad tendon, patellar tendon. No tenderness at tibial tuberosity. Spine/Ribs- No deformities, masses or tenderness, no known fractures, normal strength, Normal ROM. Normal stability No tenderness along C/T/L spine. Normal appearing ROM about spine. Neurological: General- Moves all 4 extremities symmetrically. Symmetrical face and body posture. Cranial nerves- individually evaluated II-XII and intact. PERRLA, Normal EOMI, visual/special senses appear intact, Face is symmetrical and normal sensation/movement, normal tongue, normal strength/posture of neck musculature. Reflexes- intact with DTR 2+ patellar, Achilles, bicep, brachial, tricep. Ankle clonus normal with 2 beats. Strength- 5/5 bilateral UE and LE. Soft touch- intact bilateral UE and LE. Temperature sensation- intact bilateral UE and LE. Neuropsych: Oriented- Person, place, time. (AAOx3), Mood/affect- Flat. Speech- Somber, slow speech, normal tone, normal use of language, volume and coherence. Thought content- Appears to be reasonable aware of current events. No Si/HI. He was not aware he had been to ER that many times. He just goes because he does not feel good. Low understanding. Able to do some basic math/spelling. Associations- intact, no SI/HI, no hallucinations, delusions, obsessions. Judgment/insight- Appropriate. Memory-Recall intact, remote and recent memory intact. Knowledge- Appears limited. Attention normal. Lymphatic: Head/Neck- normal size and non tender to palpation. Axillary- normal size and non tender to palpation. Femoral and Inguinal- normal size and non tender to palpation. Plan: 1. D/C Home 2. Steroids d/w patient - 20mg prednisone 2 po daily x 5 days #10 3. Resume home meds 4. Activity ad cris 5. Diet ad cris 6. Crohns f/u with GI 7. F/U w/ PCP first unless emergent then return to ED. Total today admit/d/c same day review of hospital records, previous CT/ER visits , [facility], records total >115 minutes. Discussed case with ED provider today, reviewed ABG, EKG personally. Reviewed labs and imaging plus previous visits to our ER and the D/C Form Dr. Lerma ~1 month ago. A lot of history was obtained. He hasmild cough/uri. Discussed time and supportive care. ER is for emergent issues, if needed. Recommended trying to f/u with PCP first.
[2018-07-23] MEDS ORDERED: K-DUR PO SCH (21:00)
[2018-07-24] MEDS ORDERED: CELEXA PO SCH (09:00)
== END 2018-07-23 18:29 | disposition home or self-care (01) ==
LOC: ED 12:21 → MEDSURG A 15:02
PROVIDERS: ADMIT Family Medicine; ATTEND Family Medicine
DX: R05 Cough (principal); J06.9 Acute upper respiratory infection, unspecified; R09.81 Nasal congestion; R07.82 Intercostal pain; M94.0 Chondrocostal junction syndrome [Tietze]; Z79.891 Long term (current) use of opiate analgesic; D64.9 Anemia, unspecified
CPT/HCPCS: 36415; 80053; 80306; 81001; 82550; 82803; 83605; 83690; 84145; 84484; 85025; 87040; 87502; 93005; 93010; 94640; 99284

== ENCOUNTER 2018-07-31 20:20 | Emergency (ER) ==
[2018-07-31 20:27] VITALS: BP 121/72; TEMP 98.1; BMI 23.5
--- NOTE | 2018-07-31 20:52 | ED.PDOC ---
General ED Provider: Dr. TIARA HUANG Chief Complaint: Medication Refill Stated Complaint: 32 y old male sufferung from Crohns diseas and occasional complications,Had a surgery in near past.Recurrent nausea and pain witj abdominal distribution.No diarrhea or blood in stools grossly,Normal state of hygration and urine producton.Is out of nausea and pain meds. Time Seen by Physician: 20:25 Mode of Arrival: Walk-In Information Source: Patient Exam Limitations: No limitations Primary Care Provider: ERIC MILLIGAN Nursing and Triage Documentation Reviewed and Agree: Yes Does patient meet sepsis criteria?: No System Inflammatory Response Syndrome: Not Applicable Sepsis Protocol: For patient's 13 years and over: Temp is 96.8 and below OR 101 and greater Pulse >90 BPM Resp >20/minute Acutely Altered Mental Status Are patient's symptoms suggestive of a new infection, such as: -Pneumonia -Skin, Soft Tissue -Endocarditis -UTI -Bone, Joint Infection -Implantable Device -Acute Abdominal Infection -Wound Infection -Meningitis -Blood Stream Catheter Infection -Unknown GI Complaint Exam - Abdominal Pain Complaint/Exam Duration: chronic condition Crohns disease with ecacerbations. Symptoms Are: Still present Timing: Intermittent Initial Severity: Moderate Current Severity: Moderate Location of Pain: LUQ, LLQ Radiates To: Reports: Back, Flank Character: Reports: Aching, Cramping Aggravating: Reports: None Alleviating: Reports: None Associated Signs and Symptoms: Reports: Diaphoresis, Decreased appetite, Nausea , Decreased activity Related History: Reports: Similar episode AAA Risk Factors: Reports: None Cardiac Risk Factors: Reports: None Testicular Torsion Risk Factors: Reports: None Surgical Obstruction Risk Factors: Reports: Prior abdominal surgery Related Surgical History: Reports: Bowel Resection Abdominal Findings: Present: Abdominal distention Differential Diagnoses: Constipation, Diverticulitis, Gastroenteritis, Pancreatitis Review of Systems - Review Of Systems Constitutional: Reports: Diaphoresis, Loss of appetite Eyes: Reports: No symptoms Ears, Nose, Mouth, Throat: Reports: No symptoms Respiratory: Reports: No symptoms Cardiac: Reports: No symptoms GI: Reports: Abdomen distended, Abdominal pain, Poor appetite : Reports: No symptoms Musculoskeletal: Reports: No symptoms Neurological: Reports: No symptoms Endocrine: Reports: No symptoms Hematologic/Lymphatic: Reports: No symptoms All Other Systems: Reviewed and Negative Past Medical History - Past Medical History Previously Healthy: Yes Endocrine: Reports: Hypothyroid, Dyslipidemia Cardiovascular: Reports: None Respiratory: Reports: None Hematological: Reports: None Gastrointestinal: Reports: GERD, Crohn's, Pancreatitis Genitourinary: Reports: Kidney stones Neuro/Psych: Reports: Depression Musculoskeletal: Reports: None Cancer: Reports: None Other Pertinent Past Medical History: Hypokalemia - Surgical History General Surgical History: Reports: Other (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, INTESTINAL RESECTION) - Family History Family History: Reports: Unknown - Social History Smoking Status: Never smoker Hx Substance Use: No Alcohol Screening: None - Immunizations Tetanus Shot up to Date: Yes Influenza Vaccine within 12 Months: Yes Pneumococcal Vaccine up to Date: Yes Physical Exam - Physical Exam Appearance: Ill-appearing Ill-appearing: Mild Pain Distress: Moderate Eyes: DISHA, EOMI, Conjunctiva clear ENT: Ears normal, Nose normal, Oropharynx normal Neck: Supple Respiratory: Airway patent, Breath sounds clear, Breath sounds equal Cardiovascular: RRR, Pulses normal, No rub, No murmur GI/: Soft, Nontender Musculoskeletal: Normal strength, ROM intact, No edema Skin: Warm Neurological: Sensation intact, Motor intact, Reflexes intact, Alert, Oriented Psychiatric: Affect appropriate Critical Care Note - Critical Care Note Total Time (mins): 0 Course - Course Vital Signs: Temp Pulse Resp BP Pulse Ox 07/31/18 20:20 98.1 F 86 20 121/72 99 Departure - Departure Time of Disposition: 20:59 Disposition: HOME SELF-CARE Discharge Problem: Crohns disease Instructions: Opioid Safety (ED) Condition: Good Pt referred to PMD for follow-up: Yes IPMP verified?: No Additional Instructions: Zofran tab 4 mg 11-2 tab q 8 h prn nausea.Ultram 100mg tab prn bid #15 Allergies/Adverse Reactions: Allergies No Known Allergies Allergy (Verified 07/31/18 20:27) Home Medications: Ambulatory Orders Zolpidem Tartrate [Ambien] 10 mg PO BEDTIME 03/06/18 Infliximab [Remicade] 100 mg IV DIRECTED 03/13/18 Ondansetron [Zofran Odt] 4 mg PO Q6HR PRN #10 tab.rapdis 06/09/18 Citalopram Hydrobromide [Celexa] 10 mg PO DAILY #1 06/15/18 Potassium Chloride [K-Dur] 20 meq PO BID #60 tab 06/15/18 Alprazolam [Xanax] 0.5 mg PO TID 07/02/18 Dicyclomine HCl [Bentyl] 1 - 2 mg PO QID PRN #40 capsule 07/16/18 Prednisone 40 mg PO DAILYWM 5 Days #10 tablet 07/23/18 Disposition Discussed With: Patient
== END 2018-07-31 21:22 | disposition home or self-care (01) ==
LOC: ED 20:20
DX: K50.90 Crohn's disease, unspecified, without complications (principal); R11.2 Nausea with vomiting, unspecified; R10.9 Unspecified abdominal pain; R61 Generalized hyperhidrosis; R63.0 Anorexia; R14.0 Abdominal distension (gaseous)
CPT/HCPCS: 99282

== ENCOUNTER 2018-08-04 19:30 | Emergency (ER) ==
[2018-08-04 19:36] VITALS: BP 111/70; TEMP 99.2; BMI 23.7
--- NOTE | 2018-08-04 21:43 | ED.PDOC ---
General ED Provider: Dr. URMILA TRAMMELL Chief Complaint: Abdominal Pain Stated Complaint: Patient states that he has chronic abdominal pain with breakthrough which he take Tylenol #4 or Ultram PCP does not Prescribe narcotics. Describes the pain as cramping. Time Seen by Physician: 21:30 Information Source: Patient Exam Limitations: No limitations Primary Care Provider: ERIC MILLIGAN Nursing and Triage Documentation Reviewed and Agree: Yes Does patient meet sepsis criteria?: No System Inflammatory Response Syndrome: Not Applicable Sepsis Protocol: For patient's 13 years and over: Temp is 96.8 and below OR 101 and greater Pulse >90 BPM Resp >20/minute Acutely Altered Mental Status Are patient's symptoms suggestive of a new infection, such as: -Pneumonia -Skin, Soft Tissue -Endocarditis -UTI -Bone, Joint Infection -Implantable Device -Acute Abdominal Infection -Wound Infection -Meningitis -Blood Stream Catheter Infection -Unknown Review of Systems - Review Of Systems Constitutional: Reports: No symptoms Eyes: Reports: No symptoms Ears, Nose, Mouth, Throat: Reports: No symptoms Respiratory: Reports: No symptoms Cardiac: Reports: No symptoms GI: Reports: Abdominal pain : Reports: No symptoms Musculoskeletal: Reports: No symptoms Skin: Reports: No symptoms Neurological: Reports: No symptoms Endocrine: Reports: No symptoms Hematologic/Lymphatic: Reports: No symptoms All Other Systems: Reviewed and Negative Past Medical History - Past Medical History Previously Healthy: Yes Endocrine: Reports: Hypothyroid, Dyslipidemia Cardiovascular: Reports: None Respiratory: Reports: None Hematological: Reports: None Gastrointestinal: Reports: GERD, Crohn's, Pancreatitis Genitourinary: Reports: Kidney stones Neuro/Psych: Reports: Depression Musculoskeletal: Reports: None Cancer: Reports: None Other Pertinent Past Medical History: Hypokalemia - Surgical History General Surgical History: Reports: Other (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, INTESTINAL RESECTION) - Family History Family History: Reports: Unknown - Social History Smoking Status: Never smoker Hx Substance Use: No Alcohol Screening: None - Immunizations Tetanus Shot up to Date: Yes Influenza Vaccine within 12 Months: Yes Pneumococcal Vaccine up to Date: Yes Physical Exam - Physical Exam Appearance: Well-appearing Pain Distress: Moderate Eyes: DISHA, EOMI Neck: Nonsupple Respiratory: Airway patent Cardiovascular: RRR GI/: Soft, Tender (diffusely ) Musculoskeletal: Normal strength, ROM intact, No edema, No calf tenderness Skin: Warm Neurological: Sensation intact Psychiatric: Anxious Critical Care Note - Critical Care Note Total Time (mins): 0 Course - Course Vital Signs: Temp Pulse Resp BP Pulse Ox 08/04/18 21:50 90 08/04/18 19:31 99.2 F 117 H 20 111/70 97 Departure - Departure Time of Disposition: 21:50 Disposition: HOME SELF-CARE Discharge Problem: Abdominal pain Crohns disease Qualifiers: Gastrointestinal tract location: unspecified location Digestive disease complication type: without complication Qualified Code(s): K50.90 - Crohn's disease, unspecified, without complications Instructions: Chronic Abdominal Pain (ED) Condition: Stable Pt referred to PMD for follow-up: Yes IPMP verified?: No Additional Instructions: Take Medications as prescribed Follow up with PCP in 3 - 7 days Prescriptions: Acetaminophen with Codeine [Tylenol #3 Tab] 1 tab PO Q6H #25 tablet Allergies/Adverse Reactions: Allergies No Known Allergies Allergy (Verified 07/31/18 20:27) Home Medications: Ambulatory Orders Zolpidem Tartrate [Ambien] 10 mg PO BEDTIME 03/06/18 Infliximab [Remicade] 100 mg IV DIRECTED 03/13/18 Ondansetron [Zofran Odt] 4 mg PO Q6HR PRN #10 tab.rapdis 06/09/18 Citalopram Hydrobromide [Celexa] 10 mg PO DAILY #1 06/15/18 Potassium Chloride [K-Dur] 20 meq PO BID #60 tab 06/15/18 Alprazolam [Xanax] 0.5 mg PO TID 07/02/18 Dicyclomine HCl [Bentyl] 1 - 2 mg PO QID PRN #40 capsule 07/16/18 Prednisone 40 mg PO DAILYWM 5 Days #10 tablet 07/23/18 Acetaminophen with Codeine [Tylenol #3 Tab] 1 tab PO Q6H #25 tablet 08/04/18 Disposition Discussed With: Patient
== END 2018-08-04 22:03 | disposition home or self-care (01) ==
LOC: ED 19:30
DX: K50.90 Crohn's disease, unspecified, without complications (principal); R10.9 Unspecified abdominal pain; G89.29 Other chronic pain; Z79.899 Other long term (current) drug therapy
CPT/HCPCS: 99282

== ENCOUNTER 2018-08-13 19:21 | Emergency (ER) ==
[2018-08-13 19:34] VITALS: BP 110/68; TEMP 97.8; BMI 23.4
--- NOTE | 2018-08-13 20:56 | ED.PDOC ---
General ED Provider: Dr. TIARA HUANG Chief Complaint: Abdominal Pain Stated Complaint: 32 y old chronic sufferer from Crohns disease with abdominal discomfort,nausea and diarrhea.Moderate dehydration.Abdomen not showing surgical reactivity. Time Seen by Physician: 19:30 Mode of Arrival: Walk-In Information Source: Patient Exam Limitations: No limitations Primary Care Provider: ERIC MILLIGAN Nursing and Triage Documentation Reviewed and Agree: Yes Does patient meet sepsis criteria?: No System Inflammatory Response Syndrome: Not Applicable Sepsis Protocol: For patient's 13 years and over: Temp is 96.8 and below OR 101 and greater Pulse >90 BPM Resp >20/minute Acutely Altered Mental Status Are patient's symptoms suggestive of a new infection, such as: -Pneumonia -Skin, Soft Tissue -Endocarditis -UTI -Bone, Joint Infection -Implantable Device -Acute Abdominal Infection -Wound Infection -Meningitis -Blood Stream Catheter Infection -Unknown GI Complaint Exam - Abdominal Pain Complaint/Exam Onset: Gradual Duration: chronic Symptoms Are: Still present Timing: Intermittent Initial Severity: Moderate Current Severity: Mild Location of Pain: RLQ, LUQ Radiates To: Reports: LLQ, RLQ Character: Reports: Aching Aggravating: Reports: None Alleviating: Reports: Rest, Spontaneous resolution, Bowel movement Associated Signs and Symptoms: Reports: Nausea, Diarrhea Related History: Reports: Similar episode AAA Risk Factors: Reports: None Cardiac Risk Factors: Reports: None Testicular Torsion Risk Factors: Reports: None Surgical Obstruction Risk Factors: Reports: Prior abdominal surgery Related Surgical History: Reports: Bowel Resection Abdominal Findings: Present: None, Other Differential Diagnoses: Constipation, Diverticulitis, Gastroenteritis, Pancreatitis, Irritable Bowel Syndrome Review of Systems - Review Of Systems Constitutional: Reports: No symptoms Eyes: Reports: No symptoms Ears, Nose, Mouth, Throat: Reports: No symptoms Respiratory: Reports: No symptoms Cardiac: Reports: Lightheadedness GI: Reports: Abdominal pain, Vomiting : Reports: No symptoms Musculoskeletal: Reports: No symptoms Skin: Reports: No symptoms Neurological: Reports: No symptoms Endocrine: Reports: No symptoms Hematologic/Lymphatic: Reports: No symptoms All Other Systems: Reviewed and Negative Past Medical History - Past Medical History Previously Healthy: Yes Endocrine: Reports: Hypothyroid, Dyslipidemia Cardiovascular: Reports: None Respiratory: Reports: None Hematological: Reports: None Gastrointestinal: Reports: GERD, Crohn's, Pancreatitis Genitourinary: Reports: Kidney stones Neuro/Psych: Reports: Depression Musculoskeletal: Reports: None Cancer: Reports: None Other Pertinent Past Medical History: Hypokalemia - Surgical History General Surgical History: Reports: Other (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, INTESTINAL RESECTION) - Family History Family History: Reports: Unknown - Social History Smoking Status: Never smoker Hx Substance Use: No Alcohol Screening: None - Immunizations Tetanus Shot up to Date: Yes Influenza Vaccine within 12 Months: Yes Pneumococcal Vaccine up to Date: Yes Physical Exam - Physical Exam Appearance: Ill-appearing Ill-appearing: Mild Pain Distress: Mild Eyes: DISHA, EOMI, Conjunctiva clear ENT: Ears normal, Nose normal, Oropharynx normal Neck: Supple Respiratory: Airway patent, Breath sounds clear, Breath sounds equal Cardiovascular: RRR, Pulses normal, No rub, No murmur GI/: Soft, No masses, Bowel sounds normal Musculoskeletal: Normal strength, ROM intact, No edema, No calf tenderness Skin: Warm, Dry, Normal color Neurological: Sensation intact, Motor intact, Reflexes intact, Cranial nerves intact, Alert, Oriented Psychiatric: Affect appropriate Critical Care Note - Critical Care Note Total Time (mins): 0 Course - Course Orders, Labs, Meds: Orders Category Date Time Status IV [ED IV/MEDIPORT/POWERPORT] .ONCE EMERGENCY 08/13/18 21:15 Active 0.9 % Sodium Chloride [Saline Flush] MEDS 08/13/18 21:15 Ordered 1 syr IVF PRN PRN Morphine Sulfate [Morphine 2 mg/ml Syringe] MEDS 08/13/18 21:18 Discontinued 2 mg IVP ONCE STA Ondansetron HCl/Pf [Zofran 4 mg/2 ml] MEDS 08/13/18 21:17 Discontinued 4 mg IVP ONCE STA Sodium Chloride 0.9% [Sodium Chloride] 1,000 ml MEDS 08/13/18 21:16 Active IV BOLUS Medications Discontinued Medications Generic Name Dose Route Start Last Admin Trade Name Freq PRN Reason Stop Dose Admin Sodium Chloride 1,000 mls @ 1,000 mls/hr 08/13/18 21:16 08/13/18 21:34 Sodium Chloride IV 08/13/18 22:15 1,000 mls/hr BOLUS STA Administration Morphine Sulfate 2 mg 08/13/18 21:18 08/13/18 21:36 Morphine 2 Mg/Ml Syringe IVP 08/13/18 21:19 2 mg ONCE STA Administration Ondansetron HCl 4 mg 08/13/18 21:17 08/13/18 21:35 Zofran 4 Mg/2 Ml IVP 08/13/18 21:18 4 mg ONCE STA Administration Sodium Chloride 1 syr 08/13/18 21:15 08/13/18 21:33 Saline Flush IVF 1 syr PRN PRN Administration To flush IV Vital Signs: Temp Pulse Resp BP Pulse Ox 08/13/18 19:30 97.8 F 107 H 20 110/68 98 Departure - Departure Time of Disposition: 22:45 Disposition: HOME SELF-CARE Discharge Problem: Crohn's disease (regional enteritis) Instructions: Dehydration (ED), Gas and Bloating (ED) Condition: Stable Pt referred to PMD for follow-up: Yes IPMP verified?: No Additional Instructions: Ultram tab 50 mg - take 1 tab four times a day as needed for severe breakthrough abd pain. (#10) Allergies/Adverse Reactions: Allergies No Known Allergies Allergy (Verified 07/31/18 20:27) Home Medications: Ambulatory Orders Zolpidem Tartrate [Ambien] 10 mg PO BEDTIME 03/06/18 Infliximab [Remicade] 100 mg IV DIRECTED 03/13/18 Ondansetron [Zofran Odt] 4 mg PO Q6HR PRN #10 tab.rapdis 06/09/18 Citalopram Hydrobromide [Celexa] 10 mg PO DAILY #1 06/15/18 Potassium Chloride [K-Dur] 20 meq PO BID #60 tab 06/15/18 Alprazolam [Xanax] 0.5 mg PO TID 07/02/18 Dicyclomine HCl [Bentyl] 1 - 2 mg PO QID PRN #40 capsule 07/16/18 Prednisone 40 mg PO DAILYWM 5 Days #10 tablet 07/23/18 Acetaminophen with Codeine [Tylenol #3 Tab] 1 tab PO Q6H #25 tablet 08/04/18 Disposition Discussed With: Patient
[2018-08-13] MEDS ORDERED: SODIUM CHLORIDE 1,000 ML IV STA (21:16)
[2018-08-13] MEDS ORDERED: ZOFRAN 4 MG/2 ML IVP STA (21:17)
[2018-08-13] MEDS ORDERED: MORPHINE 2 MG/ML SYRINGE IVP STA (21:18)
== END 2018-08-13 22:45 | disposition home or self-care (01) ==
LOC: ED 19:21
DX: K50.90 Crohn's disease, unspecified, without complications (principal); E86.0 Dehydration
CPT/HCPCS: 96361; 96374; 96375; 99282

== ENCOUNTER 2018-08-14 10:03 | Emergency (ER) ==
[2018-08-14 10:12] VITALS: BP 111/70; TEMP 98.9; BMI 22.7
--- NOTE | 2018-08-14 11:26 | ED.PDOC ---
General ED Provider: Dr. DWAIN ROBERTS Chief Complaint: Abdominal Pain Stated Complaint: Abdominal pain; was seen during night - got IV fluids (and Morphine) - and Tramadol prescription Time Seen by Physician: 11:24 Mode of Arrival: Walk-In Information Source: Patient Exam Limitations: No limitations Primary Care Provider: ERIC MILLIGAN Seen Within Last 72 Hours for Same Complaint By: ED Nursing and Triage Documentation Reviewed and Agree: Yes Does patient meet sepsis criteria?: No System Inflammatory Response Syndrome: Not Applicable Sepsis Protocol: For patient's 13 years and over: Temp is 96.8 and below OR 101 and greater Pulse >90 BPM Resp >20/minute Acutely Altered Mental Status Are patient's symptoms suggestive of a new infection, such as: -Pneumonia -Skin, Soft Tissue -Endocarditis -UTI -Bone, Joint Infection -Implantable Device -Acute Abdominal Infection -Wound Infection -Meningitis -Blood Stream Catheter Infection -Unknown Review of Systems - Review Of Systems Constitutional: Reports: Malaise Respiratory: Reports: No symptoms Cardiac: Reports: No symptoms GI: Reports: Abdominal pain All Other Systems: Reviewed and Negative Past Medical History - Past Medical History Previously Healthy: Yes Endocrine: Reports: Hypothyroid, Dyslipidemia Cardiovascular: Reports: None Respiratory: Reports: None Hematological: Reports: None Gastrointestinal: Reports: GERD, Crohn's, Pancreatitis Genitourinary: Reports: Kidney stones Neuro/Psych: Reports: Depression Musculoskeletal: Reports: None Cancer: Reports: None Other Pertinent Past Medical History: Hypokalemia - Surgical History General Surgical History: Reports: Other (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, INTESTINAL RESECTION) - Family History Family History: Reports: Unknown - Social History Smoking Status: Never smoker Hx Substance Use: No Alcohol Screening: None - Immunizations Tetanus Shot up to Date: Yes Influenza Vaccine within 12 Months: Yes Pneumococcal Vaccine up to Date: Yes Physical Exam - Physical Exam Appearance: Well-appearing Ill-appearing: None Pain Distress: Mild Respiratory: Airway patent, Breath sounds clear, Breath sounds equal Cardiovascular: RRR, Pulses normal GI/: Soft, Bowel sounds normal Musculoskeletal: Normal strength, ROM intact Skin: Warm, Dry, Normal color Neurological: Alert, Oriented Psychiatric: Affect appropriate, Mood appropriate Critical Care Note - Critical Care Note Total Time (mins): 9 Course - Course Hematology/Chemistry: 08/14/18 11:30 08/14/18 11:30 Orders, Labs, Meds: Lab Review 08/14/18 08/14/18 11:30 11:30 WBC 6.29 RBC 3.50 L Hgb 10.4 L Hct 30.4 L MCV 86.9 MCH 29.7 MCHC 34.2 RDW Coeff of Svitlana 13.2 Plt Count 207 Immature Gran % (Auto) 0.3 Neut % (Auto) 61.8 Lymph % (Auto) 26.2 [place] % (Auto) 8.9 Eos % (Auto) 2.5 Baso % (Auto) 0.3 Immature Gran # (Auto) 0.0 Neut # (Auto) 3.9 Lymph # (Auto) 1.7 [place] # (Auto) 0.6 Eos # (Auto) 0.2 Baso # (Auto) 0.0 Sodium 138.3 Potassium 3.26 L Chloride 107.6 H Carbon Dioxide 23.9 Anion Gap 10.06 BUN 8.7 L Creatinine 0.91 Estimated GFR (MDRD) 95.00 BUN/Creatinine Ratio 9.56 Glucose 99.0 Calcium 8.84 Total Bilirubin 0.18 L AST 20.8 ALT 14.3 Alkaline Phosphatase 76.3 Total Protein 6.44 Albumin 3.68 Globulin 2.76 Albumin/Globulin Ratio 1.33 Orders Category Date Time Status CBC W/ AUTO DIFF Stat LAB 08/14/18 11:30 Completed COMPREHENSIVE METABOLIC PANEL Stat LAB 08/14/18 11:30 Completed Vital Signs: Temp Pulse Resp BP Pulse Ox 08/14/18 10:03 98.9 F 106 H 20 111/70 98 Departure - Departure Time of Disposition: 12:06 Disposition: HOME SELF-CARE Discharge Problem: Abdominal pain Qualifiers: Abdominal location: generalized Qualified Code(s): R10.84 - Generalized abdominal pain Instructions: Chronic Abdominal Pain (ED) Condition: Stable Pt referred to PMD for follow-up: Yes (call for appointment) IPMP verified?: No (Rx already written night before by ER doctor) Additional Instructions: Take the tramadol as prescribed earlier in the day. Follow up with his plan. Allergies/Adverse Reactions: Allergies No Known Allergies Allergy (Verified 07/31/18 20:27) Home Medications: Ambulatory Orders Zolpidem Tartrate [Ambien] 10 mg PO BEDTIME 03/06/18 Infliximab [Remicade] 100 mg IV DIRECTED 03/13/18 Ondansetron [Zofran Odt] 4 mg PO Q6HR PRN #10 tab.rapdis 06/09/18 Citalopram Hydrobromide [Celexa] 10 mg PO DAILY #1 06/15/18 Potassium Chloride [K-Dur] 20 meq PO BID #60 tab 06/15/18 Alprazolam [Xanax] 0.5 mg PO TID 07/02/18 Dicyclomine HCl [Bentyl] 1 - 2 mg PO QID PRN #40 capsule 07/16/18 Prednisone 40 mg PO DAILYWM 5 Days #10 tablet 07/23/18 Acetaminophen with Codeine [Tylenol #3 Tab] 1 tab PO Q6H #25 tablet 08/04/18
== END 2018-08-14 12:14 | disposition home or self-care (01) ==
LOC: ED 10:03
DX: R10.84 Generalized abdominal pain (principal); E03.9 Hypothyroidism, unspecified; E78.5 Hyperlipidemia, unspecified; Z79.899 Other long term (current) drug therapy; Z87.442 Personal history of urinary calculi; Z87.19 Personal history of other diseases of the digestive system
CPT/HCPCS: 36415; 80053; 85025; 99283

== ENCOUNTER 2018-08-21 16:53 | Emergency (ER) ==
[2018-08-21 16:57] VITALS: BP 113/52; TEMP 99.2; BMI 23.8
--- NOTE | 2018-08-21 17:03 | ED.PDOC ---
General ED Provider: Dr. JULEE GONZALEZ-ER Chief Complaint: Abdominal Pain Stated Complaint: i have chronic abd pain from crohns dz--i have appt on october 04 with pain management Time Seen by Physician: 17:01 Mode of Arrival: Walk-In Information Source: Patient Exam Limitations: No limitations Primary Care Provider: ERIC MILLIGAN Nursing and Triage Documentation Reviewed and Agree: Yes Does patient meet sepsis criteria?: No System Inflammatory Response Syndrome: Not Applicable Sepsis Protocol: For patient's 13 years and over: Temp is 96.8 and below OR 101 and greater Pulse >90 BPM Resp >20/minute Acutely Altered Mental Status Are patient's symptoms suggestive of a new infection, such as: -Pneumonia -Skin, Soft Tissue -Endocarditis -UTI -Bone, Joint Infection -Implantable Device -Acute Abdominal Infection -Wound Infection -Meningitis -Blood Stream Catheter Infection -Unknown GI Complaint Exam - Abdominal Pain Complaint/Exam Onset: Gradual Duration: several mos Symptoms Are: Still present Timing: Constant Initial Severity: Mild Current Severity: Moderate Location of Pain: Diffuse Character: Reports: Dull, Aching, Cramping Aggravating: Reports: Food Alleviating: Reports: Spontaneous resolution Associated Signs and Symptoms: Reports: Nausea. Denies: Diaphoresis, Fever, Cough, Chest pain, Dizziness, Back pain, Constipation, Blood in stool, Dysuria, Urinary frequency, Decreased urine output, Decreased appetite, Discharge, Vomiting, Diarrhea, Decreased activity Abdominal Findings: Present: None Review of Systems - Review Of Systems Constitutional: Reports: No symptoms Eyes: Reports: No symptoms Ears, Nose, Mouth, Throat: Reports: No symptoms Respiratory: Reports: No symptoms Cardiac: Reports: No symptoms GI: Reports: Abdominal pain, Diarrhea, Nausea : Reports: No symptoms Musculoskeletal: Reports: No symptoms Skin: Reports: No symptoms Neurological: Reports: No symptoms Endocrine: Reports: No symptoms Hematologic/Lymphatic: Reports: No symptoms All Other Systems: Reviewed and Negative Past Medical History - Past Medical History Previously Healthy: Yes Endocrine: Reports: Hypothyroid, Dyslipidemia Cardiovascular: Reports: None Respiratory: Reports: None Hematological: Reports: None Gastrointestinal: Reports: GERD, Crohn's, Pancreatitis Genitourinary: Reports: Kidney stones Neuro/Psych: Reports: Depression Musculoskeletal: Reports: None Cancer: Reports: None Other Pertinent Past Medical History: Hypokalemia - Surgical History General Surgical History: Reports: Other (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, INTESTINAL RESECTION) - Family History Family History: Reports: Unknown - Social History Smoking Status: Never smoker Hx Substance Use: No Alcohol Screening: None - Immunizations Influenza Vaccine within 12 Months: Yes Pneumococcal Vaccine up to Date: Yes Physical Exam - Physical Exam Appearance: Well-appearing, No pain distress, Well-nourished Pain Distress: Mild Eyes: DISHA, EOMI, Conjunctiva clear ENT: Ears normal, Nose normal, Oropharynx normal Neck: Supple Respiratory: Airway patent, Breath sounds clear, Breath sounds equal, Respirations nonlabored Cardiovascular: RRR, Pulses normal, No rub, No murmur GI/: Soft Musculoskeletal: Normal strength, ROM intact, No edema, No calf tenderness Skin: Warm, Dry, Normal color Neurological: Sensation intact, Motor intact, Reflexes intact, Cranial nerves intact, Alert, Oriented Psychiatric: Affect appropriate, Mood appropriate Critical Care Note - Critical Care Note Total Time (mins): 0 Course - Course Vital Signs: Temp Pulse Resp BP Pulse Ox 08/21/18 16:54 99.2 F 128 H 20 113/52 L 98 Departure - Departure Time of Disposition: 17:03 Disposition: HOME SELF-CARE Discharge Problem: Chronic abdominal pain Crohn disease Qualifiers: Gastrointestinal tract location: unspecified location Digestive disease complication type: unspecified complication Qualified Code(s): K50.919 - Crohn' s disease, unspecified, with unspecified complications Instructions: Chronic Abdominal Pain (ED) Condition: Stable Pt referred to PMD for follow-up: Yes IPMP verified?: No Additional Instructions: keep f/u with pain management--ultram 100mg q daily prn pain #15 nr Allergies/Adverse Reactions: Allergies No Known Allergies Allergy (Verified 08/21/18 16:59) Home Medications: Ambulatory Orders Zolpidem Tartrate [Ambien] 10 mg PO BEDTIME 03/06/18 Infliximab [Remicade] 100 mg IV DIRECTED 03/13/18 Ondansetron [Zofran Odt] 4 mg PO Q6HR PRN #10 tab.rapdis 06/09/18 Citalopram Hydrobromide [Celexa] 10 mg PO DAILY #1 06/15/18 Potassium Chloride [K-Dur] 20 meq PO BID #60 tab 06/15/18 Alprazolam [Xanax] 0.5 mg PO TID 07/02/18 Dicyclomine HCl [Bentyl] 1 - 2 mg PO QID PRN #40 capsule 07/16/18 Disposition Discussed With: Patient
== END 2018-08-21 17:08 | disposition home or self-care (01) ==
LOC: ED 16:53
DX: R10.9 Unspecified abdominal pain (principal); G89.29 Other chronic pain; K50.919 Crohn's disease, unspecified, with unspecified complications; Z87.19 Personal history of other diseases of the digestive system
CPT/HCPCS: 99282

== ENCOUNTER 2018-08-27 16:16 | Emergency (ER) ==
[2018-08-27 16:20] VITALS: BP 122/82; TEMP 97.9; BMI 24.3
--- NOTE | 2018-08-27 19:05 | ED.PDOC ---
General ED Provider: Dr. JULEE ACE Chief Complaint: Abdominal Pain Stated Complaint: Pain in abdomen associated with IBS and Crohn's. Out of meds req refills Time Seen by Physician: 18:40 Mode of Arrival: Walk-In Information Source: Patient Exam Limitations: No limitations Primary Care Provider: ERIC MILLIGAN Nursing and Triage Documentation Reviewed and Agree: Yes Does patient meet sepsis criteria?: No System Inflammatory Response Syndrome: Not Applicable Sepsis Protocol: For patient's 13 years and over: Temp is 96.8 and below OR 101 and greater Pulse >90 BPM Resp >20/minute Acutely Altered Mental Status Are patient's symptoms suggestive of a new infection, such as: -Pneumonia -Skin, Soft Tissue -Endocarditis -UTI -Bone, Joint Infection -Implantable Device -Acute Abdominal Infection -Wound Infection -Meningitis -Blood Stream Catheter Infection -Unknown GI Complaint Exam - Abdominal Pain Complaint/Exam Onset: Gradual Duration: Chronic Symptoms Are: Still present Timing: Intermittent Initial Severity: Moderate Current Severity: Mild Location of Pain: RLQ, LLQ Radiates To: Reports: Back. Denies: Chest Character: Reports: Dull, Aching, Cramping Aggravating: Reports: Position, Eating Alleviating: Reports: Rest, Medication Associated Signs and Symptoms: Reports: Nausea, Diarrhea. Denies: Diaphoresis, Fever, Cough, Chest pain, Dizziness, Back pain, Constipation, Blood in stool, Dysuria, Urinary frequency, Decreased urine output, Decreased appetite, Discharge, Vomiting, Decreased activity AAA Risk Factors: Reports: None Cardiac Risk Factors: Reports: None Testicular Torsion Risk Factors: Reports: None Surgical Obstruction Risk Factors: Reports: None Related Surgical History: Reports: None Abdominal Findings: Present: Other (tenderness/ hyperactive BS) Differential Diagnoses: Irritable Bowel Syndrome, Other (crohns disease) Review of Systems - Review Of Systems Constitutional: Reports: No symptoms Eyes: Reports: No symptoms Ears, Nose, Mouth, Throat: Reports: No symptoms Respiratory: Reports: No symptoms Cardiac: Reports: No symptoms GI: Reports: No symptoms, Abdominal pain : Reports: No symptoms Musculoskeletal: Reports: No symptoms Skin: Reports: No symptoms Neurological: Reports: No symptoms Endocrine: Reports: No symptoms Hematologic/Lymphatic: Reports: No symptoms All Other Systems: Reviewed and Negative Past Medical History - Past Medical History Previously Healthy: Yes Endocrine: Reports: Hypothyroid, Dyslipidemia Cardiovascular: Reports: None Respiratory: Reports: None Hematological: Reports: None Gastrointestinal: Reports: GERD, Crohn's, Pancreatitis Genitourinary: Reports: Kidney stones Neuro/Psych: Reports: Depression Musculoskeletal: Reports: None Cancer: Reports: None Other Pertinent Past Medical History: Hypokalemia - Surgical History General Surgical History: Reports: Other (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, INTESTINAL RESECTION) - Family History Family History: Reports: Unknown - Social History Smoking Status: Never smoker Hx Substance Use: No Alcohol Screening: None - Immunizations Influenza Vaccine within 12 Months: Yes Pneumococcal Vaccine up to Date: Yes Physical Exam - Physical Exam Appearance: Well-appearing, Obese Ill-appearing: Mild Pain Distress: Mild Eyes: DISHA, EOMI, Conjunctiva clear ENT: Ears normal, Nose normal, Oropharynx normal Neck: Supple Respiratory: Airway patent, Breath sounds clear, Breath sounds equal, Respirations nonlabored Cardiovascular: RRR, Pulses normal, No rub, No murmur GI/: Soft, No masses, Bowel sounds normal, No Organomegaly, Tender Musculoskeletal: Normal strength, ROM intact, No edema, No calf tenderness Skin: Warm, Dry, Normal color Neurological: Sensation intact, Motor intact, Reflexes intact, Cranial nerves intact, Alert, Oriented Psychiatric: Affect appropriate, Mood appropriate Critical Care Note - Critical Care Note Total Time (mins): 0 Course - Course Vital Signs: Temp Pulse Resp BP Pulse Ox 08/27/18 16:16 97.9 F 88 16 122/82 99 Departure - Departure Time of Disposition: 19:05 Disposition: HOME SELF-CARE Discharge Problem: Chronic generalized abdominal pain, Crohn's colitis Instructions: Crohn Disease (ED) Condition: Fair Pt referred to PMD for follow-up: Yes IPMP verified?: No Additional Instructions: Tramadol 50 mg po four times daily as needed for pain # 20 Prescriptions: Dicyclomine HCl [Bentyl] 1 - 2 mg PO QID PRN #60 capsule PRN Reason: abdomial cramping Tramadol HCl 50 mg PO QID PRN #20 tablet PRN Reason: Abdominal Pain Allergies/Adverse Reactions: Allergies No Known Allergies Allergy (Verified 08/27/18 16:20) Home Medications: Ambulatory Orders Zolpidem Tartrate [Ambien] 10 mg PO BEDTIME 03/06/18 Infliximab [Remicade] 100 mg IV DIRECTED 03/13/18 Ondansetron [Zofran Odt] 4 mg PO Q6HR PRN #10 tab.rapdis 06/09/18 Citalopram Hydrobromide [Celexa] 10 mg PO DAILY #1 06/15/18 Potassium Chloride [K-Dur] 20 meq PO BID #60 tab 06/15/18 Alprazolam [Xanax] 0.5 mg PO TID 07/02/18 Dicyclomine HCl [Bentyl] 1 - 2 mg PO QID PRN #60 capsule 08/27/18 Tramadol HCl 50 mg PO QID PRN #20 tablet 08/27/18 Disposition Discussed With: Patient
== END 2018-08-27 19:22 | disposition home or self-care (01) ==
LOC: ED 16:16
DX: R10.84 Generalized abdominal pain (principal); G89.29 Other chronic pain; K50.90 Crohn's disease, unspecified, without complications; Z87.19 Personal history of other diseases of the digestive system; Z79.899 Other long term (current) drug therapy
CPT/HCPCS: 99283

== ENCOUNTER 2018-08-31 21:46 | Outpatient (CLI) ==
[2018-08-31 23:27] VITALS: BMI 24.5
== END 2018-08-31 21:50 | disposition critical access hospital (66) ==
LOC: AMBL 21:46
PROVIDERS: ATTEND Family Medicine
DX: R10.9 Unspecified abdominal pain (principal); R05 Cough; K50.90 Crohn's disease, unspecified, without complications

== ENCOUNTER 2018-08-31 23:16 | Emergency (ER) ==
[2018-08-31 23:27] VITALS: BP 99/55; TEMP 98.5; BMI 24.5
--- NOTE | 2018-08-31 23:40 | ED.PDOC ---
General ED Provider: Dr. JULEE GONZALEZ-ER Chief Complaint: Abdominal Pain Stated Complaint: i hve chronic pain from my crohns disease--im out of my ultram -0-i go to pain management next month Time Seen by Physician: 23:20 Mode of Arrival: Ambulance Information Source: Patient, EMT Exam Limitations: No limitations Primary Care Provider: ERIC MILLIGAN Nursing and Triage Documentation Reviewed and Agree: No (he denies to me any vomiting) Does patient meet sepsis criteria?: No System Inflammatory Response Syndrome: Not Applicable Sepsis Protocol: For patient's 13 years and over: Temp is 96.8 and below OR 101 and greater Pulse >90 BPM Resp >20/minute Acutely Altered Mental Status Are patient's symptoms suggestive of a new infection, such as: -Pneumonia -Skin, Soft Tissue -Endocarditis -UTI -Bone, Joint Infection -Implantable Device -Acute Abdominal Infection -Wound Infection -Meningitis -Blood Stream Catheter Infection -Unknown GI Complaint Exam - Abdominal Pain Complaint/Exam Onset: Gradual Duration: several weeks Symptoms Are: Still present Timing: Constant Initial Severity: Mild Current Severity: Mild Location of Pain: Diffuse Radiates To: Reports: Back Character: Reports: Dull, Aching, Cramping Aggravating: Reports: None Alleviating: Reports: Spontaneous resolution Associated Signs and Symptoms: Denies: Diaphoresis, Fever, Cough, Chest pain, Dizziness, Back pain, Constipation, Blood in stool, Dysuria, Urinary frequency, Decreased urine output, Decreased appetite, Discharge, Nausea, Vomiting, Diarrhea, Decreased activity Abdominal Findings: Present: None Review of Systems - Review Of Systems Constitutional: Reports: No symptoms Eyes: Reports: No symptoms Ears, Nose, Mouth, Throat: Reports: No symptoms Respiratory: Reports: No symptoms Cardiac: Reports: No symptoms GI: Reports: Abdominal pain : Reports: No symptoms Musculoskeletal: Reports: No symptoms Skin: Reports: No symptoms Neurological: Reports: No symptoms Endocrine: Reports: No symptoms Hematologic/Lymphatic: Reports: No symptoms All Other Systems: Reviewed and Negative Past Medical History - Past Medical History Previously Healthy: Yes Endocrine: Reports: Hypothyroid, Dyslipidemia Cardiovascular: Reports: None Respiratory: Reports: None Hematological: Reports: None Gastrointestinal: Reports: GERD, Crohn's, Pancreatitis Genitourinary: Reports: Kidney stones Neuro/Psych: Reports: Depression Musculoskeletal: Reports: None Cancer: Reports: None Other Pertinent Past Medical History: Hypokalemia - Surgical History General Surgical History: Reports: Other (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, INTESTINAL RESECTION) - Family History Family History: Reports: Unknown - Social History Smoking Status: Never smoker Hx Substance Use: No Alcohol Screening: None - Immunizations Tetanus Shot up to Date: Yes Influenza Vaccine within 12 Months: Yes Pneumococcal Vaccine up to Date: Yes Physical Exam - Physical Exam Appearance: Well-appearing, No pain distress, Well-nourished Pain Distress: Mild Eyes: DISHA, EOMI, Conjunctiva clear ENT: Ears normal, Nose normal, Oropharynx normal Neck: Supple Respiratory: Airway patent Cardiovascular: RRR, Pulses normal, No rub, No murmur GI/: Soft, Nontender, No masses, Bowel sounds normal, No Organomegaly Musculoskeletal: Normal strength, ROM intact, No edema, No calf tenderness Skin: Warm, Dry, Normal color Neurological: Sensation intact, Motor intact, Reflexes intact, Cranial nerves intact, Alert, Oriented Psychiatric: Affect appropriate, Mood appropriate Critical Care Note - Critical Care Note Total Time (mins): 0 Course - Course Orders, Labs, Meds: Orders Category Date Time Status Tramadol HCl [Ultram] MEDS 08/31/18 23:43 Stat 100 mg PO ONCE STA Medications Generic Name Dose Route Start Last Admin Trade Name Freq PRN Reason Stop Dose Admin Tramadol HCl 100 mg 08/31/18 23:43 Ultram PO 08/31/18 23:44 ONCE STA Ephraim has chronic abd pain aNd haS no warning signs tonight--denies any vomiting , blood in the stool or rectal bleeding--- Vital Signs: Temp Pulse Resp BP Pulse Ox 08/31/18 23:18 98.5 F 116 H 20 99/55 L 96 Departure - Departure Time of Disposition: 23:41 Disposition: HOME SELF-CARE Discharge Problem: Chronic generalized abdominal pain Crohn's colitis Qualifiers: Digestive disease complication type: without complication Qualified Code(s): K50.10 - Crohn's disease of large intestine without complications Instructions: Crohn Disease (ED) Condition: Good Pt referred to PMD for follow-up: Yes IPMP verified?: No Additional Instructions: keep f/u with pain management--ultram er 100mg q daily #14 Allergies/Adverse Reactions: Allergies No Known Allergies Allergy (Verified 08/31/18 23:27) Home Medications: Ambulatory Orders Zolpidem Tartrate [Ambien] 10 mg PO BEDTIME 12/23/18 Infliximab [Remicade] 100 mg IV DIRECTED 03/13/18 Ondansetron [Zofran Odt] 4 mg PO Q6HR PRN #10 tab.rapdis 06/09/18 Citalopram Hydrobromide [Celexa] 10 mg PO DAILY #1 06/15/18 Potassium Chloride [K-Dur] 20 meq PO BID #60 tab 06/15/18 Alprazolam [Xanax] 0.5 mg PO TID 07/02/18 Disposition Discussed With: Patient
[2018-08-31] MEDS ORDERED: ULTRAM PO STA (23:43)
== END 2018-08-31 23:50 | disposition home or self-care (01) ==
LOC: ED 23:16
DX: R10.84 Generalized abdominal pain (principal); G89.29 Other chronic pain; K50.10 Crohn's disease of large intestine without complications; Z87.19 Personal history of other diseases of the digestive system; Z79.899 Other long term (current) drug therapy
CPT/HCPCS: 99283

== ENCOUNTER 2018-09-11 15:14 | Emergency (ER) ==
[2018-09-11 15:15] VITALS: BMI 24.5
[2018-09-11 15:18] VITALS: BP 120/80; TEMP 98.1
--- NOTE | 2018-09-11 15:42 | ED.PDOC ---
General ED Provider: Dr. JULEE CLAYTON MD Chief Complaint: Abdominal Pain Stated Complaint: chronic abd pain Time Seen by Physician: 15:34 Mode of Arrival: Walk-In Information Source: Patient Exam Limitations: No limitations Primary Care Provider: ERIC MILLIGAN Nursing and Triage Documentation Reviewed and Agree: Yes Does patient meet sepsis criteria?: No If yes, has appropriate treatment been initiated?: Yes System Inflammatory Response Syndrome: Not Applicable Sepsis Protocol: For patient's 13 years and over: Temp is 96.8 and below OR 101 and greater Pulse >90 BPM Resp >20/minute Acutely Altered Mental Status Are patient's symptoms suggestive of a new infection, such as: -Pneumonia -Skin, Soft Tissue -Endocarditis -UTI -Bone, Joint Infection -Implantable Device -Acute Abdominal Infection -Wound Infection -Meningitis -Blood Stream Catheter Infection -Unknown Review of Systems - Review Of Systems Constitutional: Reports: Other (chronic abd pain) Eyes: Reports: No symptoms Ears, Nose, Mouth, Throat: Reports: No symptoms Respiratory: Reports: No symptoms Cardiac: Reports: No symptoms GI: Reports: No symptoms : Reports: No symptoms Musculoskeletal: Reports: No symptoms Skin: Reports: No symptoms Neurological: Reports: No symptoms Endocrine: Reports: No symptoms Hematologic/Lymphatic: Reports: No symptoms All Other Systems: Reviewed and Negative Past Medical History - Past Medical History Previously Healthy: Yes Endocrine: Reports: Hypothyroid, Dyslipidemia Cardiovascular: Reports: None Respiratory: Reports: None Hematological: Reports: None Gastrointestinal: Reports: GERD, Crohn's, Pancreatitis Genitourinary: Reports: Kidney stones Neuro/Psych: Reports: Depression Musculoskeletal: Reports: None Cancer: Reports: None Other Pertinent Past Medical History: Hypokalemia - Surgical History General Surgical History: Reports: Other (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, INTESTINAL RESECTION) - Family History Family History: Reports: Unknown - Social History Smoking Status: Never smoker Hx Substance Use: No Alcohol Screening: None - Immunizations Influenza Vaccine within 12 Months: Yes Pneumococcal Vaccine up to Date: Yes Physical Exam - Physical Exam Appearance: Well-appearing, No pain distress, Well-nourished Eyes: DIHSA, EOMI, Conjunctiva clear ENT: Ears normal, Nose normal, Oropharynx normal Respiratory: Airway patent, Breath sounds clear, Breath sounds equal, Respirations nonlabored Cardiovascular: RRR, Pulses normal, No rub, No murmur GI/: Soft (old scar midline aroung umbilicus) Musculoskeletal: Normal strength, ROM intact, No edema, No calf tenderness Skin: Warm, Dry, Normal color Neurological: Sensation intact, Motor intact, Reflexes intact, Cranial nerves intact, Alert, Oriented Psychiatric: Affect appropriate, Mood appropriate Critical Care Note - Critical Care Note Total Time (mins): 0 Course - Course Vital Signs: Temp Pulse Resp BP Pulse Ox 09/11/18 15:15 98.1 F 104 H 20 120/80 99 Departure - Departure Time of Disposition: 16:00 Disposition: HOME SELF-CARE Discharge Problem: Abdominal pain in male Instructions: Chronic Abdominal Pain (ED) Condition: Good Pt referred to PMD for follow-up: Yes IPMP verified?: No Allergies/Adverse Reactions: Allergies No Known Allergies Allergy (Verified 09/11/18 15:20) Home Medications: Ambulatory Orders Zolpidem Tartrate [Ambien] 10 mg PO BEDTIME 03/06/18 Infliximab [Remicade] 100 mg IV DIRECTED 03/13/18 Ondansetron [Zofran Odt] 4 mg PO Q6HR PRN #10 tab.rapdis 06/09/18 Citalopram Hydrobromide [Celexa] 10 mg PO DAILY #1 06/15/18 Potassium Chloride [K-Dur] 20 meq PO BID #60 tab 06/15/18 Alprazolam [Xanax] 0.5 mg PO TID 07/02/18 Transfer Form Completed: No Disposition Discussed With: Patient
[2018-09-11] MEDS: TORADOL IM STA (15:45)
== END 2018-09-11 16:15 | disposition home or self-care (01) ==
LOC: ED 15:14
DX: R10.9 Unspecified abdominal pain (principal); G89.29 Other chronic pain; Z87.19 Personal history of other diseases of the digestive system
CPT/HCPCS: 96372; 99282

== ENCOUNTER 2018-10-01 10:41 | Emergency (ER) | payer OTHER ==
[2018-10-01 10:41] VITALS: BMI 24.3
[2018-10-01 10:48] VITALS: BP 115/80; TEMP 98.5
--- NOTE | 2018-10-01 11:45 | ED.PDOC ---
General ED Provider: Dr. URMILA TRAMMELL Chief Complaint: Abdominal Pain Stated Complaint: "I have chonic pain and what I drink goes through me. I have chronic diarrhea. the last time you gave me Tylenol # 3 it worked well. I feel dehydrated. when I take Zofran it helps with nausea" Time Seen by Physician: 11:00 Mode of Arrival: Walk-In Information Source: Patient Exam Limitations: No limitations Primary Care Provider: ERIC MILLIGAN Nursing and Triage Documentation Reviewed and Agree: Yes Does patient meet sepsis criteria?: No System Inflammatory Response Syndrome: Not Applicable Sepsis Protocol: For patient's 13 years and over: Temp is 96.8 and below OR 101 and greater Pulse >90 BPM Resp >20/minute Acutely Altered Mental Status Are patient's symptoms suggestive of a new infection, such as: -Pneumonia -Skin, Soft Tissue -Endocarditis -UTI -Bone, Joint Infection -Implantable Device -Acute Abdominal Infection -Wound Infection -Meningitis -Blood Stream Catheter Infection -Unknown Review of Systems - Review Of Systems Constitutional: Reports: No symptoms Eyes: Reports: No symptoms Ears, Nose, Mouth, Throat: Reports: No symptoms Respiratory: Reports: No symptoms Cardiac: Reports: No symptoms GI: Reports: Abdominal pain (and cramping ( feels the same) ) : Reports: No symptoms Musculoskeletal: Reports: No symptoms Skin: Reports: No symptoms Neurological: Reports: No symptoms Endocrine: Reports: No symptoms Hematologic/Lymphatic: Reports: No symptoms All Other Systems: Reviewed and Negative Past Medical History - Past Medical History Previously Healthy: Yes Endocrine: Reports: Hypothyroid, Dyslipidemia Cardiovascular: Reports: None Respiratory: Reports: None Hematological: Reports: None Gastrointestinal: Reports: GERD, Crohn's, Pancreatitis Genitourinary: Reports: Kidney stones Neuro/Psych: Reports: Depression Musculoskeletal: Reports: None Cancer: Reports: None Other Pertinent Past Medical History: Hypokalemia - Surgical History General Surgical History: Reports: Other (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, INTESTINAL RESECTION) - Family History Family History: Reports: Unknown - Social History Smoking Status: Never smoker Hx Substance Use: No Alcohol Screening: None - Immunizations Tetanus Shot up to Date: (not sure) Influenza Vaccine within 12 Months: Yes Pneumococcal Vaccine up to Date: Yes Physical Exam - Physical Exam Appearance: Well-appearing, No pain distress, Well-nourished Eyes: DISHA, EOMI, Conjunctiva clear ENT: Ears normal, Nose normal, Oropharynx normal Respiratory: Airway patent, Breath sounds clear, Breath sounds equal, Respirations nonlabored Cardiovascular: Pulses normal, No rub, No murmur, Tachycardia GI/: Soft, No masses, No Organomegaly, Tender (mild diffuse ), Bowel sounds hyperactive Musculoskeletal: Normal strength, ROM intact, No edema, No calf tenderness Skin: Warm, Dry, Normal color Neurological: Sensation intact, Motor intact, Reflexes intact, Cranial nerves intact, Alert, Oriented Psychiatric: Affect appropriate, Mood appropriate Critical Care Note - Critical Care Note Total Time (mins): 0 Course - Course Hematology/Chemistry: 10/01/18 11:45 10/01/18 11:45 Orders, Labs, Meds: Lab Review 10/01/18 10/01/18 11:45 11:45 WBC 9.05 RBC 3.61 L Hgb 10.7 L Hct 31.7 L MCV 87.8 MCH 29.6 MCHC 33.8 RDW Coeff of Svitlana 13.4 Plt Count 271 Immature Gran % (Auto) 1.0 Neut % (Auto) 65.2 Lymph % (Auto) 24.0 [place] % (Auto) 8.2 Eos % (Auto) 1.4 Baso % (Auto) 0.2 Immature Gran # (Auto) 0.1 Neut # (Auto) 5.9 Lymph # (Auto) 2.2 [place] # (Auto) 0.7 Eos # (Auto) 0.1 Baso # (Auto) 0.0 Sodium 141.3 Potassium 4.01 Chloride 105.7 Carbon Dioxide 25.4 Anion Gap 14.21 BUN 11.5 Creatinine 0.96 Estimated GFR (MDRD) 89.00 BUN/Creatinine Ratio 11.97 Glucose 92.0 Calcium 9.40 Total Bilirubin 0.41 AST 31.1 ALT 61.5 H Alkaline Phosphatase 93.3 Total Protein 7.47 Albumin 4.24 Globulin 3.23 Albumin/Globulin Ratio 1.31 Orders Category Date Time Status CBC W/ AUTO DIFF Stat LAB 10/01/18 11:45 Completed COMPREHENSIVE METABOLIC PANEL Stat LAB 10/01/18 11:45 Completed Vital Signs: Temp Pulse Resp BP Pulse Ox 10/01/18 10:41 98.5 F 113 H 20 115/80 97 Departure - Departure Time of Disposition: 12:20 Disposition: HOME SELF-CARE Discharge Problem: Chronic abdominal pain Instructions: Abdominal Pain (ED) Condition: Stable Pt referred to PMD for follow-up: Yes IPMP verified?: No Additional Instructions: continue home mediations Follow up with YOUr Primary care Doctor for Medication refill. Allergies/Adverse Reactions: Allergies No Known Allergies Allergy (Verified 10/01/18 10:58) Home Medications: Ambulatory Orders Zolpidem Tartrate [Ambien] 10 mg PO BEDTIME 03/06/18 Infliximab [Remicade] 100 mg IV DIRECTED 03/13/18 Ondansetron [Zofran Odt] 4 mg PO Q6HR PRN #10 tab.rapdis 06/09/18 Citalopram Hydrobromide [Celexa] 10 mg PO DAILY #1 06/15/18 Potassium Chloride [K-Dur] 20 meq PO BID #60 tab 06/15/18 Dicyclomine HCl [Bentyl] 10 mg PO TID PRN #20 capsule 09/25/18 Tramadol HCl 50 mg PO PRN PRN 09/26/18
== END 2018-10-01 12:26 | disposition home or self-care (01) ==
LOC: ED 10:41
DX: R10.9 Unspecified abdominal pain (principal); G89.29 Other chronic pain; R19.7 Diarrhea, unspecified; E03.9 Hypothyroidism, unspecified; E78.5 Hyperlipidemia, unspecified; Z87.19 Personal history of other diseases of the digestive system; Z87.442 Personal history of urinary calculi; Z79.899 Other long term (current) drug therapy
CPT/HCPCS: 36415; 80053; 85025; 99282

== ENCOUNTER 2018-10-07 23:47 | Emergency (ER) | payer OTHER ==
[2018-10-07 23:53] VITALS: BP 121/82; TEMP 97.9; BMI 24.9
--- NOTE | 2018-10-08 00:22 | ED.PDOC ---
General ED Provider: Dr. JULEE GONZALEZ-ER Chief Complaint: Medication Refill Stated Complaint: i ran out of tylenol #3 and my abd pain returned--i have chronic abd pain due to crohns dz Time Seen by Physician: 23:50 Mode of Arrival: Walk-In Information Source: Patient Exam Limitations: No limitations Primary Care Provider: ERIC MILLIGAN Nursing and Triage Documentation Reviewed and Agree: Yes Does patient meet sepsis criteria?: No System Inflammatory Response Syndrome: Not Applicable Sepsis Protocol: For patient's 13 years and over: Temp is 96.8 and below OR 101 and greater Pulse >90 BPM Resp >20/minute Acutely Altered Mental Status Are patient's symptoms suggestive of a new infection, such as: -Pneumonia -Skin, Soft Tissue -Endocarditis -UTI -Bone, Joint Infection -Implantable Device -Acute Abdominal Infection -Wound Infection -Meningitis -Blood Stream Catheter Infection -Unknown GI Complaint Exam - Abdominal Pain Complaint/Exam Onset: Gradual Duration: several mos Symptoms Are: Still present Timing: Intermittent Initial Severity: Mild Current Severity: Mild Location of Pain: Diffuse Character: Reports: Dull, Aching, Cramping Aggravating: Reports: None Alleviating: Reports: Spontaneous resolution Associated Signs and Symptoms: Denies: Diaphoresis, Fever, Cough, Chest pain, Dizziness, Back pain, Constipation, Blood in stool, Dysuria, Urinary frequency, Decreased urine output, Decreased appetite, Discharge, Nausea, Vomiting, Diarrhea, Decreased activity Abdominal Findings: Present: None Differential Diagnoses: Other Review of Systems - Review Of Systems Constitutional: Reports: No symptoms Eyes: Reports: No symptoms Ears, Nose, Mouth, Throat: Reports: No symptoms Respiratory: Reports: No symptoms Cardiac: Reports: No symptoms GI: Reports: Abdominal pain : Reports: No symptoms Musculoskeletal: Reports: No symptoms Skin: Reports: No symptoms Neurological: Reports: No symptoms Endocrine: Reports: No symptoms Hematologic/Lymphatic: Reports: No symptoms All Other Systems: Reviewed and Negative Past Medical History - Past Medical History Previously Healthy: Yes Endocrine: Reports: Hypothyroid, Dyslipidemia Cardiovascular: Reports: None Respiratory: Reports: None Hematological: Reports: None Gastrointestinal: Reports: GERD, Crohn's, Pancreatitis Genitourinary: Reports: Kidney stones Neuro/Psych: Reports: Depression Musculoskeletal: Reports: None Cancer: Reports: None Other Pertinent Past Medical History: Hypokalemia - Surgical History General Surgical History: Reports: Other (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, INTESTINAL RESECTION) - Family History Family History: Reports: Unknown - Social History Smoking Status: Never smoker Hx Substance Use: No Alcohol Screening: None - Immunizations Tetanus Shot up to Date: Yes Influenza Vaccine within 12 Months: Yes Pneumococcal Vaccine up to Date: Yes Physical Exam - Physical Exam Appearance: Well-appearing, No pain distress, Well-nourished Eyes: DISHA, EOMI, Conjunctiva clear ENT: Ears normal, Nose normal, Oropharynx normal Neck: Supple Respiratory: Airway patent, Breath sounds clear, Breath sounds equal, Respirations nonlabored Cardiovascular: RRR, Pulses normal, No rub, No murmur GI/: Soft, Nontender, No masses, Bowel sounds normal, No Organomegaly Musculoskeletal: Normal strength, ROM intact, No edema, No calf tenderness Skin: Warm, Dry, Normal color Neurological: Sensation intact, Motor intact, Reflexes intact, Cranial nerves intact, Alert, Oriented Psychiatric: Affect appropriate, Mood appropriate Critical Care Note - Critical Care Note Total Time (mins): 0 Course - Course Vital Signs: Temp Pulse Resp BP Pulse Ox 10/07/18 23:47 97.9 F 110 H 16 121/82 98 Departure - Departure Time of Disposition: 00:22 Disposition: HOME SELF-CARE Discharge Problem: Abdominal pain Crohns disease Qualifiers: Gastrointestinal tract location: unspecified location Digestive disease complication type: unspecified complication Qualified Code(s): K50.919 - Crohn' s disease, unspecified, with unspecified complications Instructions: Crohn Disease (ED) Condition: Good Pt referred to PMD for follow-up: Yes IPMP verified?: No Additional Instructions: tylenol #3 q 6hrs prn pain #10---its important to follow up with pain management Allergies/Adverse Reactions: Allergies No Known Allergies Allergy (Verified 10/07/18 23:53) Home Medications: Ambulatory Orders Zolpidem Tartrate [Ambien] 10 mg PO BEDTIME 03/06/18 Infliximab [Remicade] 100 mg IV DIRECTED 03/13/18 Ondansetron [Zofran Odt] 4 mg PO Q6HR PRN #10 tab.rapdis 06/09/18 Citalopram Hydrobromide [Celexa] 10 mg PO DAILY #1 06/15/18 Potassium Chloride [K-Dur] 20 meq PO BID #60 tab 06/15/18 Dicyclomine HCl [Bentyl] 10 mg PO TID PRN #20 capsule 09/25/18 Acetaminophen with Codeine [Tylenol #3 Tab] 1 tab PO BID PRN #14 tablet Disposition Discussed With: Patient
== END 2018-10-08 00:35 | disposition home or self-care (01) ==
LOC: ED 23:47
DX: R10.9 Unspecified abdominal pain (principal); G89.29 Other chronic pain; K50.919 Crohn's disease, unspecified, with unspecified complications; Z79.899 Other long term (current) drug therapy
CPT/HCPCS: 99282

== ENCOUNTER 2018-10-23 08:52 | Emergency (ER) ==
[2018-10-23 08:56] VITALS: BP 107/75; TEMP 98.3; BMI 25.0
--- NOTE | 2018-10-23 09:10 | ED.PDOC ---
General ED Provider: Dr. JULEE GONZALEZ-ER Chief Complaint: Abdominal Pain Stated Complaint: rey got pain from crohns --i have appt with pain management on sep 3 Time Seen by Physician: 09:08 Mode of Arrival: Walk-In Information Source: Patient Exam Limitations: No limitations Primary Care Provider: ERIC MILLIGAN Nursing and Triage Documentation Reviewed and Agree: Yes Does patient meet sepsis criteria?: No System Inflammatory Response Syndrome: Not Applicable Sepsis Protocol: For patient's 13 years and over: Temp is 96.8 and below OR 101 and greater Pulse >90 BPM Resp >20/minute Acutely Altered Mental Status Are patient's symptoms suggestive of a new infection, such as: -Pneumonia -Skin, Soft Tissue -Endocarditis -UTI -Bone, Joint Infection -Implantable Device -Acute Abdominal Infection -Wound Infection -Meningitis -Blood Stream Catheter Infection -Unknown GI Complaint Exam - Abdominal Pain Complaint/Exam Onset: Gradual Duration: several mos Symptoms Are: Still present Timing: Constant Initial Severity: Mild Current Severity: Mild Location of Pain: Diffuse Character: Reports: Dull, Aching, Cramping Aggravating: Reports: None Alleviating: Reports: Spontaneous resolution Associated Signs and Symptoms: Denies: Diaphoresis, Fever, Cough, Chest pain, Dizziness, Back pain, Constipation, Blood in stool, Dysuria, Urinary frequency, Decreased urine output, Decreased appetite, Discharge, Nausea, Vomiting, Diarrhea, Decreased activity Abdominal Findings: Present: None Differential Diagnoses: Other Review of Systems - Review Of Systems Constitutional: Reports: No symptoms Eyes: Reports: No symptoms Ears, Nose, Mouth, Throat: Reports: No symptoms Respiratory: Reports: No symptoms Cardiac: Reports: No symptoms GI: Reports: Abdominal pain : Reports: No symptoms Musculoskeletal: Reports: No symptoms Skin: Reports: No symptoms Neurological: Reports: No symptoms Endocrine: Reports: No symptoms Hematologic/Lymphatic: Reports: No symptoms All Other Systems: Reviewed and Negative Past Medical History - Past Medical History Previously Healthy: Yes Endocrine: Reports: Hypothyroid, Dyslipidemia Cardiovascular: Reports: None Respiratory: Reports: None Hematological: Reports: None Gastrointestinal: Reports: GERD, Crohn's, Pancreatitis Genitourinary: Reports: Kidney stones Neuro/Psych: Reports: Depression Musculoskeletal: Reports: None Cancer: Reports: None Other Pertinent Past Medical History: Hypokalemia - Surgical History General Surgical History: Reports: Other (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, INTESTINAL RESECTION) - Family History Family History: Reports: Unknown - Social History Smoking Status: Never smoker Hx Substance Use: No Alcohol Screening: None - Immunizations Tetanus Shot up to Date: Yes Influenza Vaccine within 12 Months: Yes Pneumococcal Vaccine up to Date: Yes Physical Exam - Physical Exam Appearance: Well-appearing, No pain distress, Well-nourished Eyes: DISHA, EOMI, Conjunctiva clear ENT: Ears normal, Nose normal, Oropharynx normal Neck: Supple Respiratory: Airway patent, Breath sounds clear, Breath sounds equal, Respirations nonlabored Cardiovascular: RRR, Pulses normal, No rub, No murmur GI/: Soft, Nontender, No masses, Bowel sounds normal, No Organomegaly Musculoskeletal: Normal strength, ROM intact, No edema, No calf tenderness Skin: Warm, Dry, Normal color Neurological: Sensation intact, Motor intact, Reflexes intact, Cranial nerves intact, Alert, Oriented Psychiatric: Affect appropriate Critical Care Note - Critical Care Note Total Time (mins): 0 Course - Course Vital Signs: Temp Pulse Resp BP Pulse Ox 10/23/18 08:52 98.3 F 109 H 16 107/75 96 Departure - Departure Time of Disposition: 09:10 Disposition: HOME SELF-CARE Discharge Problem: Chronic generalized abdominal pain Instructions: Chronic Abdominal Pain (ED) Condition: Good Pt referred to PMD for follow-up: Yes IPMP verified?: No Additional Instructions: keep appt with pain management Allergies/Adverse Reactions: Allergies No Known Allergies Allergy (Verified 10/23/18 08:57) Home Medications: Ambulatory Orders Zolpidem Tartrate [Ambien] 10 mg PO BEDTIME 03/06/18 Infliximab [Remicade] 100 mg IV DIRECTED 03/13/18 Ondansetron [Zofran Odt] 4 mg PO Q6HR PRN #10 tab.rapdis 06/09/18 Citalopram Hydrobromide [Celexa] 10 mg PO DAILY #1 06/15/18 Potassium Chloride [K-Dur] 20 meq PO BID #60 tab 06/15/18 Alprazolam [Xanax] 1 mg PO BID 10/22/18 Disposition Discussed With: Patient
== END 2018-10-23 09:16 | disposition home or self-care (01) ==
LOC: ED 08:52
DX: R10.84 Generalized abdominal pain (principal); G89.29 Other chronic pain; K50.90 Crohn's disease, unspecified, without complications; Z87.19 Personal history of other diseases of the digestive system; Z79.899 Other long term (current) drug therapy
CPT/HCPCS: 99281

== ENCOUNTER 2018-10-25 19:46 | Emergency (ER) ==
[2018-10-25 19:50] VITALS: BP 110/70; TEMP 98.3
[2018-10-25 19:52] VITALS: BMI 25.1
--- NOTE | 2018-10-25 19:58 | ED.PDOC ---
General ED Provider: Dr. JULEE GONZALEZ-ER Chief Complaint: Non-specific Complaint Stated Complaint: rey got a spot near my rectum and its draining green stuff Time Seen by Physician: 19:56 Mode of Arrival: Walk-In Information Source: Patient Exam Limitations: No limitations Primary Care Provider: ERIC MILLIGAN Nursing and Triage Documentation Reviewed and Agree: Yes Does patient meet sepsis criteria?: No System Inflammatory Response Syndrome: Not Applicable Sepsis Protocol: For patient's 13 years and over: Temp is 96.8 and below OR 101 and greater Pulse >90 BPM Resp >20/minute Acutely Altered Mental Status Are patient's symptoms suggestive of a new infection, such as: -Pneumonia -Skin, Soft Tissue -Endocarditis -UTI -Bone, Joint Infection -Implantable Device -Acute Abdominal Infection -Wound Infection -Meningitis -Blood Stream Catheter Infection -Unknown Skin Complaint Exam - Skin/Soft Tissue Complaint/Exam Onset/Duration: 6mos Symptoms Are: Still present Timing: Constant Initial Severity: Mild Current Severity: Mild Location: perirectal area Character: Reports: Redness, Swelling, Raised Associated Signs and Symptoms: Reports: Drainage, Tenderness Recent Exposure to Others w/Similar Symptoms: No Skin Findings: Present: Erythema, Induration, Fluctuant mass Joint Tenderness Present: No Differential Diagnoses: Abscess, Other Review of Systems - Review Of Systems Constitutional: Reports: No symptoms Eyes: Reports: No symptoms Ears, Nose, Mouth, Throat: Reports: No symptoms Respiratory: Reports: No symptoms Cardiac: Reports: No symptoms GI: Reports: No symptoms : Reports: No symptoms Musculoskeletal: Reports: No symptoms Skin: Reports: No symptoms Neurological: Reports: No symptoms Endocrine: Reports: No symptoms Hematologic/Lymphatic: Reports: No symptoms All Other Systems: Reviewed and Negative Past Medical History - Past Medical History Previously Healthy: Yes Endocrine: Reports: Hypothyroid, Dyslipidemia Cardiovascular: Reports: None Respiratory: Reports: None Hematological: Reports: None Gastrointestinal: Reports: GERD, Crohn's, Pancreatitis Genitourinary: Reports: Kidney stones Neuro/Psych: Reports: Depression Musculoskeletal: Reports: None Cancer: Reports: None Other Pertinent Past Medical History: Hypokalemia - Surgical History General Surgical History: Reports: Other (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, INTESTINAL RESECTION) - Family History Family History: Reports: Unknown - Social History Smoking Status: Never smoker Hx Substance Use: No Alcohol Screening: None - Immunizations Tetanus Shot up to Date: Yes Influenza Vaccine within 12 Months: Yes Pneumococcal Vaccine up to Date: Yes Physical Exam - Physical Exam Appearance: Well-appearing, No pain distress, Well-nourished Eyes: DISHA, EOMI, Conjunctiva clear ENT: Ears normal, Nose normal, Oropharynx normal Neck: Supple Respiratory: Airway patent, Breath sounds clear, Breath sounds equal, Respirations nonlabored Cardiovascular: RRR, Pulses normal, No rub, No murmur GI/: Soft, Nontender, No masses, Bowel sounds normal, No Organomegaly Musculoskeletal: Normal strength, ROM intact, No edema, No calf tenderness Skin: Warm, Dry, Normal color Neurological: Sensation intact, Motor intact, Reflexes intact, Cranial nerves intact, Alert, Oriented Psychiatric: Affect appropriate, Mood appropriate Critical Care Note - Critical Care Note Total Time (mins): 0 Course - Course Vital Signs: Temp Pulse Resp BP Pulse Ox 10/25/18 19:46 98.3 F 105 H 16 110/70 97 Departure - Departure Time of Disposition: 19:58 Disposition: HOME SELF-CARE Discharge Problem: Fistula Instructions: Anal Fissure (ED) Condition: Good Pt referred to PMD for follow-up: Yes IPMP verified?: No Additional Instructions: f/u with your md that manages your crohns dz Allergies/Adverse Reactions: Allergies No Known Allergies Allergy (Verified 10/25/18 19:49) Home Medications: Ambulatory Orders Zolpidem Tartrate [Ambien] 10 mg PO BEDTIME 03/06/18 Infliximab [Remicade] 100 mg IV DIRECTED 03/13/18 Ondansetron [Zofran Odt] 4 mg PO Q6HR PRN #10 tab.rapdis 06/09/18 Citalopram Hydrobromide [Celexa] 10 mg PO DAILY #1 06/15/18 Potassium Chloride [K-Dur] 20 meq PO BID #60 tab 06/15/18 Alprazolam [Xanax] 1 mg PO BID 10/22/18 Acetaminophen with Codeine [Tylenol #3 Tab] 1 tab PO Q6H PRN #10 tablet Disposition Discussed With: Patient
== END 2018-10-25 20:04 | disposition home or self-care (01) ==
LOC: ED 19:46
DX: K60.4 Rectal fistula (principal)
CPT/HCPCS: 99282

== ENCOUNTER 2018-11-04 03:22 | Outpatient (CLI) | END 2018-11-04 03:42 | disposition short-term general hospital (02) | LOC: AMBL 03:22 | PROVIDERS: ATTEND Internal Medicine Geriatric Medicine | DX: R10.9 Unspecified abdominal pain (principal); K50.90 Crohn's disease, unspecified, without complications; R11.0 Nausea ==

== ENCOUNTER 2018-11-05 18:44 | Emergency (ER) | payer OTHER ==
[2018-11-05 18:49] VITALS: BP 104/64; TEMP 97.8; BMI 24.6
--- NOTE | 2018-11-05 19:02 | ED.PDOC ---
General ED Provider: Dr. URMILA TRMAMELL Chief Complaint: Abdominal Pain Stated Complaint: chronic abdominal pain with body aches. Was seen last night at [facility], [place] and was told he had Low potassium. He states that he was given IV potassium but stil have body aches. Abdominal pain is chronic and unchanged. He also states he was given steroids for increased stomach inflamation. He gets remacaide every 8 weeks last ws 6 weeks ago. Time Seen by Physician: 19:00 Mode of Arrival: Walk-In Information Source: Patient Primary Care Provider: ERIC MILLIGAN Nursing and Triage Documentation Reviewed and Agree: Yes Does patient meet sepsis criteria?: No System Inflammatory Response Syndrome: Not Applicable Sepsis Protocol: For patient's 13 years and over: Temp is 96.8 and below OR 101 and greater Pulse >90 BPM Resp >20/minute Acutely Altered Mental Status Are patient's symptoms suggestive of a new infection, such as: -Pneumonia -Skin, Soft Tissue -Endocarditis -UTI -Bone, Joint Infection -Implantable Device -Acute Abdominal Infection -Wound Infection -Meningitis -Blood Stream Catheter Infection -Unknown Review of Systems - Review Of Systems Constitutional: Reports: Malaise, Weakness Eyes: Reports: No symptoms Ears, Nose, Mouth, Throat: Reports: No symptoms Respiratory: Reports: No symptoms Cardiac: Reports: No symptoms GI: Reports: Abdominal pain : Reports: No symptoms Musculoskeletal: Reports: No symptoms Skin: Reports: No symptoms Neurological: Reports: No symptoms Endocrine: Reports: No symptoms Hematologic/Lymphatic: Reports: No symptoms All Other Systems: Reviewed and Negative Past Medical History - Past Medical History Previously Healthy: Yes Endocrine: Reports: Hypothyroid, Dyslipidemia Cardiovascular: Reports: None Respiratory: Reports: None Hematological: Reports: None Gastrointestinal: Reports: GERD, Crohn's, Pancreatitis Genitourinary: Reports: Kidney stones Neuro/Psych: Reports: Depression Musculoskeletal: Reports: None Cancer: Reports: None Other Pertinent Past Medical History: Hypokalemia - Surgical History General Surgical History: Reports: Other (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, INTESTINAL RESECTION) - Family History Family History: Reports: Unknown - Social History Smoking Status: Never smoker Hx Substance Use: No Alcohol Screening: None - Immunizations Tetanus Shot up to Date: Yes Influenza Vaccine within 12 Months: Yes Pneumococcal Vaccine up to Date: Yes Physical Exam - Physical Exam Appearance: Ill-appearing, Well-nourished Ill-appearing: Mild Pain Distress: Mild Eyes: DISHA, EOMI, Conjunctiva clear ENT: Ears normal, Nose normal, Oropharynx normal Neck: Supple Respiratory: Airway patent, Breath sounds clear, Breath sounds equal, Respirations nonlabored Cardiovascular: RRR, Pulses normal, No rub, No murmur GI/: Soft, No masses, Bowel sounds normal, No Organomegaly, Tender (mild tenderness to palpation. ) Musculoskeletal: Normal strength, ROM intact, No edema, No calf tenderness Skin: Warm, Dry, Normal color Neurological: Sensation intact, Motor intact, Reflexes intact, Cranial nerves intact, Alert, Oriented Psychiatric: Affect appropriate, Mood appropriate Critical Care Note - Critical Care Note Total Time (mins): 0 Course - Course Hematology/Chemistry: 11/05/18 19:09 11/05/18 19:09 Orders, Labs, Meds: Lab Review 11/05/18 11/05/18 19:09 19:09 WBC 7.93 RBC 3.53 L Hgb 10.3 L Hct 29.8 L MCV 84.4 MCH 29.2 MCHC 34.6 RDW Coeff of Svitlana 13.1 Plt Count 242 Neutrophils % (Manual) 83.0 H Band Neutrophils % 2.0 Lymphocytes % (Manual) 11.0 Monocytes % (Manual) 2.0 Eosinophils % (Manual) 1.0 Basophils % (Manual) 1.0 Metamyelocytes % 1.0 Anisocytosis Not present Sodium 140.6 Potassium 3.15 L Chloride 110.2 H Carbon Dioxide 21.2 L Anion Gap 12.35 BUN 12.7 Creatinine 1.12 H Estimated GFR (MDRD) 75.00 BUN/Creatinine Ratio 11.33 Glucose 134.3 H Calcium 9.20 Magnesium 1.66 Total Bilirubin 0.30 AST 42.4 ALT 67.1 H Alkaline Phosphatase 102.0 Total Protein 7.27 Albumin 4.11 Globulin 3.16 Albumin/Globulin Ratio 1.30 Orders Category Date Time Status CBC W/ AUTO DIFF Stat LAB 11/05/18 19:09 Completed COMPREHENSIVE METABOLIC PANEL Stat LAB 11/05/18 19:09 Completed MAGNESIUM Stat LAB 11/05/18 19:09 Completed MANUAL DIFFERENTIAL Stat LAB 11/05/18 19:09 Completed Potassium Chloride [K-Dur] MEDS 11/05/18 20:29 Discontinued 40 meq PO ONCE STA Medications Discontinued Medications Generic Name Dose Route Start Last Admin Trade Name Freq PRN Reason Stop Dose Admin Potassium Chloride 40 meq 11/05/18 20:29 K-Dur PO 11/05/18 20:30 ONCE STA Vital Signs: Temp Pulse Resp BP Pulse Ox 11/05/18 18:45 97.8 F 84 20 104/64 99 Departure - Departure Time of Disposition: 20:40 Disposition: HOME SELF-CARE Discharge Problem: Abdominal pain, Hypokalemia Instructions: Hypokalemia (ED), Chronic Abdominal Pain (ED) Condition: Good Pt referred to PMD for follow-up: Yes IPMP verified?: No Additional Instructions: continue home Potassium tablets. Follow up with YOUR PCP in 3 days Allergies/Adverse Reactions: Allergies No Known Allergies Allergy (Verified 11/05/18 18:53) Home Medications: Ambulatory Orders Zolpidem Tartrate [Ambien] 10 mg PO BEDTIME 03/06/18 Infliximab [Remicade] 100 mg IV DIRECTED 03/13/18 Ondansetron [Zofran Odt] 4 mg PO Q6HR PRN #10 tab.rapdis 06/09/18 Citalopram Hydrobromide [Celexa] 10 mg PO DAILY #1 06/15/18 Potassium Chloride [K-Dur] 20 meq PO BID #60 tab 06/15/18 Alprazolam [Xanax] 1 mg PO BID 10/22/18 Ketorolac Tromethamine [Toradol] 10 mg PO Q6HR 11/05/18 Prednisone 20 mg PO DIRECTED 11/05/18 Disposition Discussed With: Patient, Family
[2018-11-05] MEDS ORDERED: K-DUR PO STA (20:29)
== END 2018-11-05 20:54 | disposition home or self-care (01) ==
LOC: ED 18:44
DX: R10.9 Unspecified abdominal pain (principal); G89.29 Other chronic pain; E87.6 Hypokalemia; Z79.899 Other long term (current) drug therapy; Z87.19 Personal history of other diseases of the digestive system
CPT/HCPCS: 36415; 80053; 83735; 85007; 85025; 99283

== ENCOUNTER 2019-05-06 13:47 | Observation (INO) ==
[2019-05-06] MEDS ORDERED: LACTATED RINGERS 1,000 ML IV STA (14:46)
[2019-05-06] MEDS ORDERED: ZOFRAN 4 MG/2 ML IVP STA (14:46)
[2019-05-06] MEDS ORDERED: BENTYL IM STA (14:52)
[2019-05-06 15:08] LABS: HEMATOCRIT 29.6 % (42.0-52.0)
--- NOTE | 2019-05-06 15:10 | ED.PDOC ---
General ED Provider: Dr. URMILA TRAMMELL Chief Complaint: Abdominal Pain Stated Complaint: Patient is a 33 year old male who comes to the ER with abdominal pain Nausea and Vomiting for the past few days. He was seen last week diagnosed with possible bowel obstruction, sent to [facility] where he was told he did not have any bowel obstruction as he was still having good bowel movement. Records show he that he was told Narcotics are not indicated. He was discharge home with scheduled follow with his GI Dr. Arriaga in 1- 2 weeks. He has a history Crohn's disease and has been to the ER multiple times for chronic abdominal pain. Does not have a PCP. Time Seen by Physician: 14:00 Mode of Arrival: Walk-In Information Source: Patient Primary Care Provider: SHARAN AREVALO Nursing and Triage Documentation Reviewed and Agree: Yes Does patient meet sepsis criteria?: No System Inflammatory Response Syndrome: Not Applicable Sepsis Protocol: For patient's 13 years and over: Temp is 96.8 and below OR 101 and greater Pulse >90 BPM Resp >20/minute Acutely Altered Mental Status Are patient's symptoms suggestive of a new infection, such as: -Pneumonia -Skin, Soft Tissue -Endocarditis -UTI -Bone, Joint Infection -Implantable Device -Acute Abdominal Infection -Wound Infection -Meningitis -Blood Stream Catheter Infection -Unknown GI Complaint Exam Abdominal Pain Complaint/Exam Duration: 2 days Symptoms Are: Still present Timing: Constant Initial Severity: Moderate Current Severity: Severe Location of Pain: Diffuse Radiates To: Denies Chest, Back, Flank, LLQ, RLQ and Inguinal Character: Reports Cramping Associated Signs and Symptoms: Reports Nausea, Vomiting and Diarrhea; Denies Diaphoresis, Fever, Cough, Chest pain, Dizziness, Back pain, Constipation, Blood in stool, Dysuria, Urinary frequency, Decreased urine output, Decreased appetite, Discharge and Decreased activity AAA Risk Factors: Reports None Cardiac Risk Factors: Reports None Testicular Torsion Risk Factors: Reports None Differential Diagnoses: Bowel Obstruction and Gastroenteritis Review of Systems Review Of Systems Constitutional: Reports No symptoms Eyes: Reports No symptoms Ears, Nose, Mouth, Throat: Reports No symptoms Respiratory: Reports No symptoms Cardiac: Reports No symptoms GI: Reports Abdominal pain, Diarrhea and Nausea : Reports No symptoms Musculoskeletal: Reports No symptoms Skin: Reports No symptoms Neurological: Reports Anxiety Endocrine: Reports No symptoms Hematologic/Lymphatic: Reports No symptoms All Other Systems: Reviewed and Negative [facility] Medical History (Updated 05/06/19 @ 16:46 by SARITA ROUSSEAU RN) Bladder fistula Bowel obstruction (Acute) Calculus of kidney Chronic pancreatitis Crohns disease Hypothyroidism Social History Smoking and tobacco status: Never smoker Substance use type: does not use History of recent travel: No Physical Exam Physical Exam Appearance: Reports Ill-appearing Ill-appearing: Mild Pain Distress: Moderate Eyes: Reports DISHA, EOMI and Conjunctiva clear ENT: Reports Ears normal, Nose normal and Oropharynx normal Respiratory: Reports Airway patent, Breath sounds clear, Breath sounds equal and Respirations nonlabored Cardiovascular: Reports RRR, Pulses normal, No rub and No murmur GI/: Reports Soft and Tender (mild ) Musculoskeletal: Reports Normal strength, ROM intact, No edema and No calf tenderness Skin: Reports Warm, Dry and Normal color Neurological: Reports Sensation intact, Motor intact, Reflexes intact, Cranial nerves intact, Alert and Oriented Psychiatric: Reports Affect appropriate and Mood appropriate Interpretation Radiology Interpretation Radiology Interpretation By: Radiologist Radiology Results: No acute changes (no obstructive bowel gas partten) Dumper Operator Rate: Normal Rhythm: Sinus Ectopy: None EKG Interpretation Time of EKG #1: 15:57 Rate: Normal Rhythm: Sinus Ectopy: None [place]: NL ST Segment: Normal Interpretation: incomplet RBBB, voltage criteria for LVH, no T wave changes. Physician Notification Case Discussed Physician Notified: Madisyn Yi Time of Notification: 15:50 (agree to admit to the Floor ) Critical Care Note Critical Care Note Total Time (mins): 40 Course Course Hematology/Chemistry: 05/06/19 15:00 05/06/19 15:00 Orders, Labs, Meds: Lab Review 05/06/19 05/06/19 05/06/19 15:00 15:00 15:00 WBC 10.94 H RBC 3.51 L Hgb 10.1 L Hct 29.6 L MCV 84.3 MCH 28.8 MCHC 34.1 RDW Coeff of Svitlana 12.8 Plt Count 321 Immature Gran % (Auto) 0.9 Neut % (Auto) 71.6 Lymph % (Auto) 20.1 [place] % (Auto) 6.9 Eos % (Auto) 0.4 Baso % (Auto) 0.1 Immature Gran # (Auto) 0.1 Neut # (Auto) 7.8 H Lymph # (Auto) 2.2 [place] # (Auto) 0.8 Eos # (Auto) 0.0 Baso # (Auto) 0.0 Sodium 136.5 Potassium 2.55 L* Chloride 95.8 L Carbon Dioxide 36.2 H Anion Gap 7.05 BUN 13.0 Creatinine 0.95 Estimated GFR (MDRD) 90.00 BUN/Creatinine Ratio 13.68 Glucose 102.2 Calcium 8.66 Magnesium 1.49 L Total Bilirubin 0.20 AST 18.8 ALT 24.8 Alkaline Phosphatase 68.9 Total Protein 6.10 L Albumin 3.49 L Globulin 2.61 Albumin/Globulin Ratio 1.33 Amylase 70.9 Lipase 57.0 Orders Category Date Time Status ED IV/MEDIPORT/POWERPORT .ONCE EMERGENCY 05/06/19 14:46 Active AMYLASE Stat LAB 05/06/19 15:00 Completed CBC W/ AUTO DIFF Stat LAB 05/06/19 15:00 Completed COMPREHENSIVE METABOLIC PANEL Stat LAB 05/06/19 15:00 Completed LIPASE Stat LAB 05/06/19 15:00 Completed MAGNESIUM Stat LAB 05/06/19 15:00 Completed 0.9 % Sodium Chloride [Saline Flush] MEDS 05/06/19 14:46 Active 1 syr IVF PRN PRN Dicyclomine Inj [Bentyl] MEDS 05/06/19 14:52 Discontinued 20 mg IM ONCE STA Ondansetron HCl/Pf [Zofran 4 mg/2 ml] MEDS 05/06/19 14:46 Discontinued 4 mg IVP ONCE STA Potassium Chloride in 0.9%NaCl [Sodium Chloride 0.9%- MEDS 05/06/19 15:38 Discontinued KCl 40Meq] 1,000 ml IV 250 mls/hr Ringers Lactated Solution [Lactated Ringers] 1,000 ml MEDS 05/06/19 14:46 Discontinued IV BOLUS ABDOMEN 1 VIEW Stat RADS 05/06/19 14:46 Completed Medications Generic Name Dose Route Start Last Admin Trade Name Freq PRN Reason Stop Dose Admin Acetaminophen 650 mg 05/06/19 16:25 Tylenol PO Q4H PRN pain or fever Budesonide 9 mg 05/07/19 09:00 Entocort Ec PO DAILY JOSE Dicyclomine HCl 10 mg 05/06/19 21:00 05/06/19 20:49 Bentyl PO 10 mg ACHS JOSE Administration Enoxaparin Sodium 40 mg 05/07/19 09:00 Lovenox SUBCUT DAILY JOSE Esomeprazole Magnesium 40 mg 05/07/19 09:00 Nexium Iv IVP DAILY JOSE Potassium Chloride/Dextrose/Sod Cl 1,000 mls @ 100 mls/hr 05/06/19 16:00 05/06/19 16:15 D5%-1/2ns-Kcl 40 Meq/L Iv Gricelda IV 100 mls/hr .Q10H JOSE Administration Ibuprofen 800 mg 05/06/19 17:14 Motrin PO Q8H PRN Mild Pain Ondansetron HCl 4 mg 05/06/19 16:25 Zofran 4 Mg/2 Ml IVP Q6H PRN Nausea / Vomiting Potassium Chloride 40 meq 05/06/19 17:30 05/06/19 17:26 K-Dur PO 40 meq BIDWM JOSE Administration Sodium Chloride 1 syr 05/06/19 14:46 05/06/19 16:19 Saline Flush IVF 1 syr PRN PRN Administration To flush IV Discontinued Medications Generic Name Dose Route Start Last Admin Trade Name Freq PRN Reason Stop Dose Admin Dicyclomine HCl 20 mg 05/06/19 14:52 05/06/19 15:08 Bentyl IM 05/06/19 14:53 20 mg ONCE STA Administration Lactated Ringer's 1,000 mls @ 1,000 mls/hr 05/06/19 14:46 05/06/19 16:36 Lactated Ringers IV 05/06/19 15:45 Not Given BOLUS STA Potassium Chloride/Sodium Chloride 1,000 mls @ 250 mls/hr 05/06/19 15:38 05/06/19 15:59 Sodium Chloride 0.9%-Kcl 40meq IV 05/06/19 19:37 Not Given .Q4H STA Diphenhydramine HCl 25 mg/ 100.5 mls @ 100 mls/hr 05/06/19 17:26 05/06/19 21:12 Sodium Chloride IV 100 mls/hr BEDTIME PRN Administration Restlessness Magnesium Sulfate 1 gm 05/06/19 15:46 05/06/19 16:12 Magnesium Sulfate 1 Gm/2 Ml Vial IVP 05/06/19 15:47 1 gm ONCE STA Administration Ondansetron HCl 4 mg 05/06/19 14:46 05/06/19 16:12 Zofran 4 Mg/2 Ml IVP 05/06/19 14:47 4 mg ONCE STA Administration Vital Signs: Temp Pulse Resp BP Pulse Ox 05/06/19 13:47 98.4 F 114 H 14 121/79 98 Discharge Plan Discharge Patient Disposition: ADMITTED INPATIENT Discharge Problem: Hypomagnesemia, Acute hypokalemia, Abdominal pain ED Provider: URMILA TRAMMELL Condition: Fair Discharge Date/Time: 05/06/19 16:44
--- NOTE | 2019-05-06 15:21 | DI ---
Exam. Abdomen or KUB, one-view History. Abdominal pain Comparison. 01/10/2019 FINDINGS No organomegaly. An anastomotic suture seen right lower quadrant. There is a nonobstructive bowel g as pattern. There is moderate amount of gas and dense stool retained throughout portions of the larg e bowel. No obvious bowel wall thickening. No renal calcification. Impression Nonobstructive bowel gas pattern Postsurgical changes. Moderate amount gas and stool within the colon, correlate clinically regarding constipation
[2019-05-06] MEDS ORDERED: POTASSIUM CHLORIDE 10 MEQ/100 ML PREMIX 10 MEQ/100 ML BAG IV STA (15:35)
[2019-05-06] MEDS ORDERED: SODIUM CHLORIDE 0.9%-KCL 40MEQ 1,000 ML IV STA (15:38)
[2019-05-06] MEDS ORDERED: MAGNESIUM SULFATE 1 GM/2 ML VIAL IVP STA (15:46)
[2019-05-06] MEDS: D5%-1/2NS-KCL 40 MEQ/L IV SOL 1,000 ML IV SCH (16:15)
[2019-05-06] MEDS ORDERED: ZOFRAN 4 MG/2 ML IVP PRN (16:25)
[2019-05-06] MEDS ORDERED: TYLENOL PO PRN (16:25)
[2019-05-06 16:51] VITALS: BMI 22.0
[2019-05-06] MEDS ORDERED: MOTRIN PO PRN (17:14)
[2019-05-06] MEDS: K-DUR PO SCH (17:26)
[2019-05-06] MEDS ORDERED: BENADRYL 25 MG in SODIUM CHLORIDE 100 ML IV PRN (17:26)
[2019-05-06] MEDS: BENTYL PO SCH (20:49)
[2019-05-06] MEDS ORDERED: BENADRYL ONE (20:53)
[2019-05-06] MEDS ORDERED: AMBIEN PO SCH (21:00)
[2019-05-07] MEDS ORDERED: BENADRYL 25 MG in SODIUM CHLORIDE 100 ML IV PRN ×2
[2019-05-07] MEDS: D5%-1/2NS-KCL 40 MEQ/L IV SOL 1,000 ML IV SCH ×2 (02:50→11:37)
[2019-05-07] MEDS: BENTYL PO SCH ×4 (06:18→20:14)
--- NOTE | 2019-05-07 07:57 | PCM ---
Chief Complaint Chief Complaint: "severe abdominal pain" History of Present Illness History of Present Illness: Ephraim Maldonado is 33 yo male on disability d/t 7 yo hx Crohn's disease w/ multiple presentations to this facility and [facility] for Crohn's related issues. Patient has now presented to [facility] ER 05/06/2019 15:38 w/ c'o's severe unrelenting generalized abdominal pain >RLQ worsening w/ onset 2 days ago. The pain is described as cramping, sharp stabbing pain rated 9/10 at worst and currently 6/10. There is associated generalized weakness, fatigue, increased appetite ("w/ steroids"), N/V w/ bilous emesis, 10-15 daily episodes of medium brown liquid stood, and generalized arthralgias and myalgias. Patient states he is taking Xanax, Ambien, and Percocet routinely at home w/ no relief. He admits to recent ER transfer to [place], [place] 05/01-05/03/2019 w/ review of hospitalization records presenting problems "Exacerbation of Chrohn's disease of small intestine" w/ CT scan of abdomen and pelvis [facility] there noting small bowel wall thickening within the RUQ consistent w/ active Crohn's disease w/ possible associated partial small bowel obstruction. Flat plate at [facility] noted air-fluid levels in the small bowel and colon could be due to enterocolitis or a partial colonic obstruction. Patient was "very fixated on pain medication throughout his stay" and was given Budesonide 9mg PO daily w/improved diarrhea, and soft diet toleration w/ f-u appt w/ gastroenterology hospital consult, Dr. Arriaga in the next 2 weeks. It is noted "There is no evidence of obstruction, the patient's pain had reduced and he felt appropriate for c/ home by both services (IM & GI)......There is no role for narcotics in this situation. Pt. informed." Patient was to con't on antiemetics, PPI and fluids. It is also noted in [facility] D/C summary 05/03/2019 that the patient was also there 04/22/2019 and left AMA; "Gastroenterology is trying to get prior authorization for biologics. I understand that this patient has only been intermittently compliant w/ treatment. He states that he has been intermittently anorexic and has had decreased intake of oral fluids as well." During interview by this hospitalist, the patient is asking immediately for his Ambien, Xanax, and Percocet that he takes regularly at home. Review of outside records including [place] site last dose of pain meds was 05/03/2019 2 day supply of Oxycodone-Acet 7.5/[address] Nick Oh, hospitalist [facility], and Feb. filling of 14day of Aprazolam 1mg and Zolpidem Tartrate 10mg, and Amphetamine Salt Combo 10mg per Dr. Samy Grimm, [facility]. Per call w/ [facility] clinic, [place] yogi, No medications have been dispensed after 03/17/2019 RX d/t Dr. Grimm's concern for frequent ER services and concerns for abuse along w/ patient not returning for individual services/visits as requested. Dr. Grimm does not want medications restarted at this time; patient will need to f-u at clinic for further services. Admission Labs: CBC WBC 10.94/8.06, RBC 3.51L/3.39L, Hgb 10.1L/9.6L, Hct 29.6L/29.0L, Neut# 7.8H/4.1N, otherwise WNL; CMP wnl except K+ 2.55/2.82 and 05/07/2019 readings BUN 8.7L, Glucose 116.8, Ca+ 8.29L, Mg+ 1.49/1.82 after Mg+ replacement; Urinalysis-all normal; UDS + for Opiates and Amphetamines; Amylase 70.9N;and Lipase 57.0N. Flat Plate of abdomen notes FINDINGS: No organomegaly. An anastomotic suture seen right lower quadrant. There is a nonobstructive bowel gas pattern. There is moderate amount of gas and dense stool retained throughout portions of the large bowel. No obvious bowel wall thickening. No renal calcification.:Impression=Nonobstructive bowel gas pattern; Postsurgical changes.; Moderate amount gas and stool within the colon, correlate clinically regarding constipation. Patient VS stable since admission w/ telemetry SR w/ BBB and episode SB 56 w/ BBB. Patient admitted observation for Acute Abdominal Pain; Crohn's Disease Flare, se meghna hypokalemia d/t diarrhea?? or possibly not taking his home RX w/ telemetry w/ needed K+ IV replacement, IVF replacement, Budesonide 9mg PO daily, telemetry w/ hypokalemia, and needed monitoring N/V, diarrhea, and abdominal pain. Code status confirmed with patient as full code per ACLS standards review. PCP on hospital records is Anish Olsen MD, but patient has never seen this MD and has switched d/t Insurance requirements to a new MD in [place]--Dr. Mychal Damico. Review of Systems Constitutional: Reports weakness, fatigue and other; Denies fever, chills, sweats and loss of appetite Eyes: Denies blurred vision, double-vision, discharge, itching, pain, redness and photophobia Ears: Denies pain, bleeding, drainage, ringing and hearing loss Nose: Denies bleeding, congestion and discharge Throat: Reports pain (slight discomfort w/ swelling.); Denies swelling and voice change Mouth: Denies bleeding, pain and swelling Respiratory: Denies cough, shortness of air, wheeze, hemoptysis and pain with breathing Cardiovascular: Denies chest pain, left arm pain, diaphoresis, PND, orthopnea, edema, palpitations and syncope Gastrointestinal: Reports abdominal pain (severe generalized greatest in LLQ), nausea (waxing and waning), vomiting (Last emesis right before ER admission at home---bilous emesis) and diarrhea (chronic; loose liquid medium brown to semi- formed; 10-15 stools/day); Denies melena, hematemesis, hematochezia, dysphagia and constipation Genitourinary: Reports flank pain (L flank dull ache X 2 days.); Denies dysuria, hematuria, frequency, incontinence, penile discharge, testicular pain and testicular swelling Neurological: Reports headache (Gets headaches if not taking his Xanax & Ambien. ); Denies dizziness, seizure, numbness, weakness, speech difficulty, problems with walking, tremor and fainting Musculoskeletal: Reports pain (general myalgias & arthralgias) and swelling in joints Skin: Reports other (Large left mid-line wide linear and right mid abdominal scarring from past surgeries.); Denies rash, pruritus, lacerations, wounds and bruising Hematology: Reports easy bruising; Denies easy bleeding and swollen glands Endocrine: Reports weight changes (7-8 lb weight loss in last 2 months); Denies cold intolerance, heat intolerance, excessive thirst, excessive hunger and polyuria Psychiatric: Reports depression (Sees Dr. Grimm at [facility] once a month ), anxiety and sleeplessness; Denies hopelessness, suicidal and hallucinations Habits: Denies tobacco use, substance use and alcohol use Allergies Allergies Allergy/AdvReac Type Severity Reaction Status Date / Time No Known Allergies Allergy Verified 05/01/19 09:33 PFS Medical History (Updated 05/07/19 @ 10:45 by SABRINA SWANSON) Calculus of kidney Chronic pancreatitis Crohns disease Depression with anxiety (Acute) Hypothyroidism Surgical History (Updated 05/07/19 @ 07:38 by SABRINA SWANSON) Colectomy Social History (Updated 05/07/19 @ 07:40 by SABRINA SWANSON) Smoking and tobacco status: Never smoker Alcohol intake: never Substance use type: does not use Household members: none Housing: apartment Marital status: S SINGLE Lives independently: Yes Number of children: 0 Highest education level completed: high school graduate Current occupational status: disabled History of recent travel: No Medications Medications: Medications Generic Name Dose Route Start Last Admin Trade Name Freq PRN Reason Stop Dose Admin Acetaminophen 650 mg 05/06/19 16:25 Tylenol PO Q4H PRN pain or fever Budesonide 9 mg 05/07/19 09:00 Entocort Ec PO DAILY JOSE Dicyclomine HCl 10 mg 05/06/19 21:00 05/07/19 06:18 Bentyl PO 10 mg ACHS JSOE Administration Enoxaparin Sodium 40 mg 05/07/19 09:00 Lovenox SUBCUT DAILY JOSE Esomeprazole Magnesium 40 mg 05/07/19 09:00 Nexium Iv IVP DAILY JOSE Potassium Chloride/Dextrose/Sod Cl 1,000 mls @ 100 mls/hr 05/06/19 16:00 05/07/19 02:50 D5%-1/2ns-Kcl 40 Meq/L Iv Gricelda IV 100 mls/hr .Q10H JOSE Administration Ibuprofen 800 mg 05/06/19 17:14 Motrin PO Q8H PRN Mild Pain Ondansetron HCl 4 mg 05/06/19 16:25 Zofran 4 Mg/2 Ml IVP Q6H PRN Nausea / Vomiting Potassium Chloride 40 meq 05/06/19 17:30 05/06/19 17:26 K-Dur PO 40 meq BIDWM JOSE Administration Sodium Chloride 1 syr 05/06/19 14:46 05/06/19 16:19 Saline Flush IVF 1 syr PRN PRN Administration To flush IV Body Composition Height: 5 ft 5 in Weight: 132 lb 4.438 oz Body Mass Index (BMI): 22.0 Vital Signs Temperature: 98.9 F Pulse Rate: 71 Respiratory Rate: 18 Blood Pressure: 94/60 O2 Sat by Pulse Oximetry: 100 Physical Examination Appearance: Reports Ill-appearing and Thin Ill-appearing: Mild Pain Distress: Moderate Eyes: Reports DISHA, EOMI and Conjunctiva clear ENT: Reports Ears normal, Nose normal and Oropharynx normal; Denies TMs [place], Rhinorrhea and Epistaxis Neck: Supple Respiratory: Reports Airway patent, Breath sounds clear, Breath sounds equal and Breath sounds diminished; Denies Crackles, Rhonchi, Wheezes and Retractions Cardiovascular: Reports RRR, Pulses normal, No rub and No murmur; Denies Irregular rhythm (Telemetry SR w/ BBB rate 71) GI/: Reports Soft, No masses, No Organomegaly, Tender (Generalized w/ no rebound or guarding.) and Bowel sounds hypoactive Musculoskeletal: Reports Normal strength, ROM intact, No edema and No calf tenderness Skin: Reports Warm, Dry and Normal color; Denies Diaphoretic and Cyanotic Neurological: Reports Sensation intact, Motor intact, Reflexes intact, Cranial nerves intact, Alert and Oriented (X4) Psychiatric: Reports Affect appropriate (Moans at times during interview and then distracted w/ his phone w/ no grimacing or complaints; frequently mentions needs for Ambien, Xanax and Percocet. ) and Mood appropriate; Denies Anxious and Depressed Lab/Tests/Diagnostic Imaging Lab/Tests/Diagnostic Imaging: Lab Review 05/06/19 05/06/19 05/06/19 15:00 15:00 15:00 WBC 10.94 H RBC 3.51 L Hgb 10.1 L Hct 29.6 L MCV 84.3 MCH 28.8 MCHC 34.1 RDW Coeff of Svitlana 12.8 Plt Count 321 Immature Gran % (Auto) 0.9 Neut % (Auto) 71.6 Lymph % (Auto) 20.1 [place] % (Auto) 6.9 Eos % (Auto) 0.4 Baso % (Auto) 0.1 Immature Gran # (Auto) 0.1 Neut # (Auto) 7.8 H Lymph # (Auto) 2.2 [place] # (Auto) 0.8 Eos # (Auto) 0.0 Baso # (Auto) 0.0 Sodium 136.5 Potassium 2.55 L* Chloride 95.8 L Carbon Dioxide 36.2 H Anion Gap 7.05 BUN 13.0 Creatinine 0.95 Estimated GFR (MDRD) 90.00 BUN/Creatinine Ratio 13.68 Glucose 102.2 Calcium 8.66 Magnesium 1.49 L Total Bilirubin 0.20 AST 18.8 ALT 24.8 Alkaline Phosphatase 68.9 Total Protein 6.10 L Albumin 3.49 L Globulin 2.61 Albumin/Globulin Ratio 1.33 Amylase 70.9 Lipase 57.0 05/07/19 05/07/19 04:00 04:00 WBC 8.06 RBC 3.39 L Hgb 9.6 L Hct 29.0 L MCV 85.5 MCH 28.3 MCHC 33.1 RDW Coeff of Svitlana 13.2 Plt Count 310 Immature Gran % (Auto) 0.9 Neut % (Auto) 50.5 Lymph % (Auto) 39.2 [place] % (Auto) 8.2 Eos % (Auto) 1.2 Baso % (Auto) 0.0 Immature Gran # (Auto) 0.1 Neut # (Auto) 4.1 Lymph # (Auto) 3.2 [place] # (Auto) 0.7 Eos # (Auto) 0.1 Baso # (Auto) 0.0 Sodium 138.3 Potassium 2.82 L Chloride 101.3 Carbon Dioxide 30.6 H Anion Gap 9.22 BUN 8.7 L Creatinine 0.72 Estimated GFR (MDRD) 124.00 BUN/Creatinine Ratio 12.08 Glucose 116.8 H Calcium 8.29 L Magnesium 1.82 Total Bilirubin AST ALT Alkaline Phosphatase Total Protein Albumin Globulin Albumin/Globulin Ratio Amylase Lipase 05/06/2019 Flat Plate Abdomen FINDINGS No organomegaly. An anastomotic suture seen right lower quadrant. There is a nonobstructive bowel gas pattern. There is moderate amount of gas and dense stool retained throughout portions of the large bowel. No obvious bowel wall thickening. No renal calcification. Impression: Nonobstructive bowel gas pattern Postsurgical changes. Moderate amount gas and stool within the colon, correlate clinically regarding constipation Orders Category Date Time Status ADMIT OBSERVATION [PLACE PATIENT OBSERVATION] .TO ADMISSION 05/06/19 15:42 Active MEDSURG (MONITORED BED) EKG-(ED ONLY) Stat CARDIO 05/06/19 15:47 Completed ACTIVITY .Up ad Juliette CARE 05/06/19 16:26 Active GIVE HS SNACK 2100 CARE 05/06/19 16:26 Active INTAKE & OUTPUT Q8HR CARE 05/06/19 16:25 Active Rectal Tube [ENEMA/RECTAL TUBE] Q4HR CARE 05/06/19 17:17 Active TELEMETRY MONITORING TELE CARE 05/06/19 15:43 Active VITAL SIGNS Q4HR CARE 05/06/19 16:25 Active CLEAR LIQUID DIET DIETARY 05/06/19 Dinner Ordered HS SNACK DIETARY 05/06/19 Dinner Ordered ED GROUND SUPPORT EQUIPMENT FITTER APPLIED .ONCE EMERGENCY 05/06/19 15:46 Active ED IV/MEDIPORT/POWERPORT .ONCE EMERGENCY 05/06/19 14:46 Active ED STRAIN URINE .ONCE EMERGENCY 05/06/19 16:24 Active AMYLASE Stat LAB 05/06/19 15:00 Completed BASIC METABOLIC PANEL DAILY@0600 LAB 05/07/19 04:00 Completed BASIC METABOLIC PANEL DAILY@0600 LAB 05/08/19 06:00 Ordered CBC W/ AUTO DIFF DAILY@0600 LAB 05/07/19 04:00 Completed CBC W/ AUTO DIFF DAILY@0600 LAB 05/08/19 06:00 Ordered CBC W/ AUTO DIFF Stat LAB 05/06/19 15:00 Completed COMPREHENSIVE METABOLIC PANEL Stat LAB 05/06/19 15:00 Completed LIPASE Stat LAB 05/06/19 15:00 Completed MAGNESIUM Routine LAB 05/07/19 04:00 Completed MAGNESIUM Stat LAB 05/06/19 15:00 Completed MRSA SCREEN Routine LAB 05/06/19 17:00 Received 0.9 % Sodium Chloride [Saline Flush] MEDS 05/06/19 14:46 Active 1 syr IVF PRN PRN Acetaminophen [Tylenol] MEDS 05/06/19 16:25 Active 650 mg PO Q4H PRN Budesonide [Entocort EC] MEDS 05/07/19 09:00 Active 9 mg PO DAILY Dicyclomine HCl [Bentyl] MEDS 05/06/19 21:00 Active 10 mg PO ACHS Dicyclomine Inj [Bentyl] MEDS 05/06/19 14:52 Discontinued 20 mg IM ONCE STA Diphenhydramine Inj [Benadryl] MEDS 05/06/19 20:53 Discontinued 50 mg .ROUTE .STK-MED ONE Diphenhydramine Inj [Benadryl] 25 mg MEDS 05/06/19 17:26 Discontinued 0.9 % Sodium Chloride [Sodium Chloride] 100 ml IV BEDTIME Enoxaparin Sodium [Lovenox] MEDS 05/07/19 09:00 Active 40 mg SUBCUT DAILY Esomeprazole Sodium [Nexium IV] MEDS 05/07/19 09:00 Active 40 mg IVP DAILY Ibuprofen [Motrin] MEDS 05/06/19 17:14 Active 800 mg PO Q8H PRN Magnesium Sulfate Vial [Magnesium Sulfate 1 gm/2 ml MEDS 05/06/19 15:46 Discontinued Vial] 1 gm IVP ONCE STA Ondansetron HCl/Pf [Zofran 4 mg/2 ml] MEDS 05/06/19 14:46 Discontinued 4 mg IVP ONCE STA Ondansetron HCl/Pf [Zofran 4 mg/2 ml] MEDS 05/06/19 16:25 Active 4 mg IVP Q6H PRN Potassium Chloride [K-Dur] MEDS 05/06/19 17:30 Active 40 meq PO BIDWM Potassium Chloride in 0.9%NaCl [Sodium Chloride 0.9%- MEDS 05/06/19 15:38 Discontinued KCl 40Meq] 1,000 ml IV 250 mls/hr Potassium Chloride/D5-0.45NACL [D5%-1/2Ns-KCl 40 Meq/l MEDS 05/06/19 16:00 Active IV Gricelda] 1,000 ml IV 100 mls/hr Ringers Lactated Solution [Lactated Ringers] 1,000 ml MEDS 05/06/19 14:46 Discontinued IV BOLUS RESUSCITATION STATUS Routine OTHERS 05/06/19 16:25 Ordered ABDOMEN 1 VIEW Stat RADS 05/06/19 14:46 Completed Medications Generic Name Dose Route Start Last Admin Trade Name Freq PRN Reason Stop Dose Admin Acetaminophen 650 mg 05/06/19 16:25 Tylenol PO Q4H PRN pain or fever Budesonide 9 mg 05/07/19 09:00 Entocort Ec PO DAILY JOSE Dicyclomine HCl 10 mg 05/06/19 21:00 05/07/19 06:18 Bentyl PO 10 mg ACHS JOSE Administration Enoxaparin Sodium 40 mg 05/07/19 09:00 Lovenox SUBCUT DAILY JOSE Esomeprazole Magnesium 40 mg 05/07/19 09:00 Nexium Iv IVP DAILY JOSE Potassium Chloride/Dextrose/Sod Cl 1,000 mls @ 100 mls/hr 05/06/19 16:00 05/07/19 02:50 D5%-1/2ns-Kcl 40 Meq/L Iv Gricelda IV 100 mls/hr .Q10H JOSE Administration Ibuprofen 800 mg 05/06/19 17:14 Motrin PO Q8H PRN Mild Pain Ondansetron HCl 4 mg 05/06/19 16:25 Zofran 4 Mg/2 Ml IVP Q6H PRN Nausea / Vomiting Potassium Chloride 40 meq 05/06/19 17:30 05/06/19 17:26 K-Dur PO 40 meq BIDWM JOSE Administration Sodium Chloride 1 syr 05/06/19 14:46 05/06/19 16:19 Saline Flush IVF 1 syr PRN PRN Administration To flush IV Discontinued Medications Generic Name Dose Route Start Last Admin Trade Name Freq PRN Reason Stop Dose Admin Dicyclomine HCl 20 mg 05/06/19 14:52 05/06/19 15:08 Bentyl IM 05/06/19 14:53 20 mg ONCE STA Administration Lactated Ringer's 1,000 mls @ 1,000 mls/hr 05/06/19 14:46 05/06/19 16:36 Lactated Ringers IV 05/06/19 15:45 Not Given BOLUS STA Potassium Chloride/Sodium Chloride 1,000 mls @ 250 mls/hr 05/06/19 15:38 05/06/19 15:59 Sodium Chloride 0.9%-Kcl 40meq IV 05/06/19 19:37 Not Given .Q4H STA Diphenhydramine HCl 25 mg/ 100.5 mls @ 100 mls/hr 05/06/19 17:26 05/06/19 21:12 Sodium Chloride IV 100 mls/hr BEDTIME PRN Administration Restlessness Magnesium Sulfate 1 gm 05/06/19 15:46 05/06/19 16:12 Magnesium Sulfate 1 Gm/2 Ml Vial IVP 05/06/19 15:47 1 gm ONCE STA Administration Ondansetron HCl 4 mg 05/06/19 14:46 05/06/19 16:12 Zofran 4 Mg/2 Ml IVP 05/06/19 14:47 4 mg ONCE STA Administration Assessment (1) Abdominal pain, acute, generalized: Status: Acute Code(s): R10.84 - Generalized abdominal pain SNOMED Code(s): 847752709 (2) Exacerbation of Crohn's disease of small intestine: Status: Acute Code(s): K50.00 - Crohn's disease of small intestine without complications SNOMED Code(s): 056375893 (3) Nausea vomiting and diarrhea: Status: Chronic Code(s): R11.2 - Nausea with vomiting, unspecified; R19.7 - Diarrhea, unspecified SNOMED Code(s): 5724734 (4) Acute hypokalemia: Status: Acute Code(s): E87.6 - Hypokalemia SNOMED Code(s): 49002138 (5) Hypomagnesemia: Status: Acute Code(s): E83.42 - Hypomagnesemia SNOMED Code(s): 946258228 (6) Normocytic anemia: Status: Chronic Code(s): D64.9 - Anemia, unspecified SNOMED Code(s): 443227909 (7) Positive urine drug screen: Status: Acute Code(s): R82.5 - Elevated urine levels of drugs, medicaments and biological substances SNOMED Code(s): 831787982 (8) Depression with anxiety: Status: Acute Code(s): F41.8 - Other specified anxiety disorders SNOMED Code(s): 30349564 Plan Plan: Acute Abdominal pain , generalized >RLQ w/ Exacerbation of Crohn's disease --Worsening w/hypokalemia; Con't home Budesonide; Bentyl 10mg PO Q AC & HS; Nexium 40mg IVP daily; IVF replacement; monitor stools and chart--pt. informed to collect all stools for nurse observation w/ #, amt, consistency, and color to be recorded by nurse; ambulation w/ assistance until patient known steady at least every hour to help w/ GI symptoms; No narcotics as will only be additional contributor to decreased GI motility and possible obstruction; Rectal tube Q 4hrs X 60min---patient declines; VS Q 4hrs; monitor labs; monitor pain control and contact [employer] Hospitalist for any increased/worsening symptoms--will transfer to [facility] if worsens for needed GI consult. N/V and diarrhea--likely d/t Crohn's exacerbation. Likely improving as patient has not been getting out of bed d/t pain and no signs of stool incontinence in bed. Patient to let nurse know when needs assistance to BR w/ hat in toilet to catch stool for monitoring. IVF replacement; monitor/chart stools; stool culture and c.diff ordered; Zofran prn N/V w/ relief. Acute Hypokalemia--Improving w/ replacement. Admission K+ 2.55/2.82 this AM w/ IV replacement; Con't [place] 40meq BID; con't telemetry; monitor labs. Acute Hypomagnesia--Improved to normal this AM w/ IV MG+ 1mg replacement in ER; monitor patient, VS & labs. Normocytic Anemia--Unchanged from recent testing. Would probably benefit from Fe+ supplement; Multi-vitamin w/ Vitamin B12 shot (as patient has had in past); monitor labs; have patient discuss w/ Dr. Arriaga on his appt. in 1 week. Positive UDS --Significant finding as call to Dr. Grimm of [facility] reveals patient's RX of the past were to be completed 03/17/2019 w/ Dr. Robel borjas not wanting patient to be on these medications at present. Will continue no pain medications except Ibuprofen 800mg PO every 8 hrs as recommended per GI/IM [facility] 05/01- 05/03/2019 D/C Summary and Dr. Grimm plan. Dr. Grimm notes there are concerns for drug abuse compounded by patient not keeping regular clinic f-u appts as per treatment agreement. Using Benadryl IV for sleep w/ patient demanding Ambien at first, but now satisfied w/ Benadryl after explanation of Dr. Grimm's treatment plan. Depression w/ Anxiety per pt. report--following Dr. Grimm's treatment plan w/ no Rf's on past meds at this time. Recommended patient f-u upon d/c w/ Dr. Grimm at [facility]; patient agrees. Denies SI/HI at present. [facility] w/ [place] site medication list review. See [facility] records as reviewed and to be scanned into EMR.
[2019-05-07] MEDS: NEXIUM IV IVP SCH (08:39)
[2019-05-07] MEDS: ENTOCORT EC PO SCH (08:40)
[2019-05-07] MEDS: K-DUR PO SCH ×2 (08:40→17:12)
[2019-05-07] MEDS: LOVENOX SUBCUT SCH (08:40)
[2019-05-07] MEDS: ZOFRAN 4 MG/2 ML IVP PRN ×2 (08:50→18:26)
[2019-05-07] MEDS ORDERED: SODIUM CHLORIDE 0.9%-KCL 20 MEQ 1,000 ML IV SCH (10:30)
[2019-05-07] MEDS: SODIUM CHLORIDE 0.9%-KCL 20 MEQ 1,000 ML IV SCH ×2 (11:45→19:53)
[2019-05-07] MEDS ORDERED: VITAMIN B-12 IM STA (11:57)
[2019-05-07] MEDS: MULTIVITAMIN TABLET PO SCH (12:22)
--- NOTE | 2019-05-07 16:29 | PCM.PROG ---
Patient currently resting in bed w/ no grimacing, moaning, or signs of acute distress. Notes he has had only 3-4 episodes of diarrhea today. Appetite has been significantly increased w/ his steroid therapy; eating well w/o N/V complaints to PROGRAM EVALUATION CONSULTANT. He notes some anxiety and just wants to rest in his room with the blinds pulled down. He is concerned about sleep tonight, but is willing and requesting benadryl @ 8pm w/ 2nd dose in 4 hrs if he needs it. 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 Will give benadryl RX as requested for his team work today. Encouraging him to relax as possible and not even consider AMA as he is needing IV and K+ replacement. Patient agrees and thanks PROGRAM EVALUATION CONSULTANT for his c are today. Plan is for d/c in AM if K+ is normal and patient symptoms remain controlled. Patient verbalizes understanding and agrees w/ plan of care.
[2019-05-07] MEDS ORDERED: BENADRYL ONE (20:04)
[2019-05-07] MEDS: BENADRYL 25 MG in SODIUM CHLORIDE 100 ML IV SCH ×2 (20:14→23:55)
[2019-05-08] MEDS ORDERED: BENADRYL ONE (00:33)
[2019-05-08 05:07] LABS: HEMATOCRIT 28.9 % (42.0-52.0)
[2019-05-08 06:07] VITALS: BP 105/67; TEMP 98.5
[2019-05-08] MEDS: SODIUM CHLORIDE 0.9%-KCL 20 MEQ 1,000 ML IV SCH (06:15)
[2019-05-08] MEDS: BENTYL PO SCH (06:35)
[2019-05-08] MEDS: NEXIUM IV IVP SCH (08:42)
[2019-05-08] MEDS: MULTIVITAMIN TABLET PO SCH (08:42)
[2019-05-08] MEDS: K-DUR PO SCH (08:42)
[2019-05-08] MEDS: LOVENOX SUBCUT SCH (08:42)
[2019-05-08] MEDS: ENTOCORT EC PO SCH (08:42)
--- NOTE | 2019-05-08 09:49 | PCM.DC ---
Final Diagnosis: Acute Abd. Pain, Generalized Exacerbation of Crohn's disease of small intestine (1) Abdominal pain, acute, generalized: Status: Acute Code(s): R10.84 - Generalized abdominal pain SNOMED Code(s): 205542061 (2) Exacerbation of Crohn's disease of small intestine: Status: Acute Code(s): K50.00 - Crohn's disease of small intestine without complications SNOMED Code(s): 582478587 (3) Nausea vomiting and diarrhea: Status: Chronic Code(s): R11.2 - Nausea with vomiting, unspecified; R19.7 - Diarrhea, unspecified SNOMED Code(s): 4587643 (4) Acute hypokalemia: Status: Acute Code(s): E87.6 - Hypokalemia SNOMED Code(s): 01170472 (5) Hypomagnesemia: Status: Acute Code(s): E83.42 - Hypomagnesemia SNOMED Code(s): 132045994 (6) Normocytic anemia: Status: Chronic Code(s): D64.9 - Anemia, unspecified SNOMED Code(s): 148296270 (7) Positive urine drug screen: Status: Acute Code(s): R82.5 - Elevated urine levels of drugs, medicaments and biological substances SNOMED Code(s): 171276491 (8) Depression with anxiety: Status: Acute Code(s): F41.8 - Other specified anxiety disorders SNOMED Code(s): 87415944 Reason for Hospitalization: Acute abdominal pain, generalized w/ N/V and diarrhea resulting in HypoKalemia 2.55 and HypoMagnesia 1.49 needing IVF replenishment, IV K+ and Mg+ replacement, telemetry and frequent monitoring VS and patient status. Prognosis at Discharge: Improving, but guarded w/ Crohn's Disease needing further evaluation and therapy. Patient diarrhea is now controlled, but w/ increased appetite d/t Budesonide eating at home can increase the diarrhea and abdominal pain symptoms. Condition at Discharge: Stable at present w/ abdominal pain "much improved" per patient. Medications at Discharge: Ambulatory Orders Medication Instructions Recorded ondansetron 4 mg PO Q8H PRN #10 tab 04/30/19 budesonide 9 mg PO QAM 05/06/19 dicyclomine 10 mg PO ACHS #120 cap 05/08/19 multivitamin [Tab-A-Roxann] 1 tab PO DAILY #30 tab 05/08/19 potassium chloride 20 meq PO BID #60 tab 05/08/19 Lab/Diagnostics: Laboratory Results WBC 11.30 K/ul (4.2-10.2) H 05/08/19 04:45 RBC 3.28 10^6/ul (4.70-6.10) L 05/08/19 04:45 Hgb 9.5 g/dl (14.0-18.0) L 05/08/19 04:45 Hct 28.9 % (42.0-52.0) L 05/08/19 04:45 MCV 88.1 fl (80.0-94.0) 05/08/19 04:45 MCH 29.0 pg (27.0-31.0) 05/08/19 04:45 MCHC 32.9 (31.8-35.4) 05/08/19 04:45 RDW Coeff of Svitlana 13.9 % (11.6-14.8) 05/08/19 04:45 Plt Count 297 10^3/uL (140-440) 05/08/19 04:45 Immature Gran % (Auto) 0.6 % (0.0-5.0) 05/08/19 04:45 Neut % (Auto) 68.0 % (42.2-75.2) 05/08/19 04:45 Lymph % (Auto) 22.8 (10.0-50.0) 05/08/19 04:45 [place] % (Auto) 7.2 (0-10) 05/08/19 04:45 Eos % (Auto) 1.2 % (0.0-7.0) 05/08/19 04:45 Baso % (Auto) 0.2 % (0.0-3.0) 05/08/19 04:45 Immature Gran # (Auto) 0.1 (0.0-1.0) 05/08/19 04:45 Neut # (Auto) 7.7 K/ul (2.0-6.9) H 05/08/19 04:45 Lymph # (Auto) 2.6 K/uL (0.60-3.4) 05/08/19 04:45 [place] # (Auto) 0.8 K/uL (0.4-2.0) 05/08/19 04:45 Eos # (Auto) 0.1 K/ul (0.0-0.7) 05/08/19 04:45 Baso # (Auto) 0.0 K/uL (0-0.2) 05/08/19 04:45 Sodium 139.3 mmol/L (134.5-145) 05/08/19 04:45 Potassium 3.79 mmol/L (3.5-5.1) 05/08/19 04:45 Chloride 107.7 mmol/L (98-107) H 05/08/19 04:45 Carbon Dioxide 29.9 mmol/L (22-30.0) 05/08/19 04:45 Anion Gap 5.49 05/08/19 04:45 BUN 11.0 mg/dL (9-20) 05/08/19 04:45 Creatinine 0.81 mg/dL (0.60-1.10) 05/08/19 04:45 Estimated GFR (MDRD) 108.00 mL/min 05/08/19 04:45 BUN/Creatinine Ratio 13.58 05/08/19 04:45 Glucose 94.9 mg/dL (74-106) 05/08/19 04:45 Calcium 8.36 mg/dL (8.4-10.2) L 05/08/19 04:45 Magnesium 1.84 mg/dL (1.6-2.3) 05/08/19 04:45 Total Bilirubin 0.20 mg/dL (0.2-1.3) 05/06/19 15:00 AST 18.8 U/L (17-59) 05/06/19 15:00 ALT 24.8 U/L (0-50) 05/06/19 15:00 Alkaline Phosphatase 68.9 U/L (38-126) 05/06/19 15:00 Total Protein 6.10 g/dL (6.3-8.2) L 05/06/19 15:00 Albumin 3.49 g/dL (3.5-5.0) L 05/06/19 15:00 Globulin 2.61 05/06/19 15:00 Albumin/Globulin Ratio 1.33 05/06/19 15:00 Amylase 70.9 U/L (30-110) 05/06/19 15:00 Lipase 57.0 U/L (23-300) 05/06/19 15:00 05/06/2019 Flat Plate Abdomen FINDINGS: No organomegaly. An anastomotic suture seen right lower quadrant. There is a nonobstructive bowel gas pattern. There is moderate amount of gas and dense stool retained throughout portions of the large bowel. No obvious bowel wall thickening. No renal calcification. Impression: Nonobstructive bowel gas pattern Postsurgical changes. Moderate amount gas and stool within the colon, correlate clinically regarding constipation Education Provided to Patient and Family: Soft Low Roughage diet--see handout. Activity as tolerated; important to keep your GI tract stimulated with moving about and walking frequently every day. Keep your follow-up appointments with Dr. Sanket Damico May 15, 2019 @ 200 pm, confirmed per Chelsey Bennett RN and GI Dr. Ian Arriaga today, 2019@ 145 pm per Chelsey Bennett RN. Keep your follow-up appt. with your counselor at [facility] for this afternoon @ 100 pm or call and reschedule. Appointment verbalized per Mr. Maldonado and discuss your medications and needs for treatment. It is important to avoid narcotic pain medications as recommended by Gastroenterology as this will increase your complications with Crohn's disease and for obstruction of the bowel. Take medications as ordered only. Follow-ups: F-U w/ Dr. Ian Arriaga, GI, today 05/08/2019 @ 1:45 PM F-u w/ Dr. Sanket Damico May 15, 2019 @ 2PM. Call [facility] and get f-u appointment for tomorrow or ILENE to discuss treatment for depression/anxiety. Discharge Disposition: Home Hospital Course: Day 1 Ephraim Maldonado is 33 yo male on disability d/t 7 yo hx Crohn's disease w/ multiple presentations to this facility and [facility] for Crohn's related issues. He presented to [facility] ER 05/06/2019 15:38 w/ c'o's severe unrelenting generalized abdominal pain >RLQ worsening w/ onset 2 days ago. The pain was described as cramping, sharp stabbing pain rated 9/10 at worst and currently 6/10 on initial unit exam. He also c/o's generalized weakness, fatigue, increased appetite ("w/ steroids"), N/V w/ bilious emesis, 10-15 daily episodes of medium brown liquid stood, and generalized arthralgias and myalgias. Patient was recently in [place], [place] 05/01-05/03/2019 for same symptoms w/ CT scan of abdomen and pelvis noting small bowel wall thickening within the RUQ consistent w/ active Crohn's disease w/ possible associated partial small bowel obstruction. Flat plate at [facility] noted air-fluid levels in the small bowel and colon could be due to enterocolitis or a partial colonic obstruction. ER admission findings were unchanged on flat plate of abdomen except w/ his many episodes of diarrhea K+ was low 2.55 and Mg low 1.49. Pt. was treated w/ IV D5 1/2 NS w/ 40meq KCL and after 12 hrs when N/V was controlled w/ Zofran IV, K- Dur 40meq PO BID was started. Budesonide 9mg PO daily was started (patient admitted to nursing staff that he had not been taking the medication.) IV Nexium 40mg daily and Bentyl 10mg PO AC & HS were introduced w/ good results. Shortly after taking the Budesonide, the nausea resolved, patient was hungry and started eating w/o increased abdominal pain or vomiting. He had some nausea which was controlled w/ Zofran. The patient started his hospital stay fixated on pain medication, Ambien, and Xanax. [facility] Hospitalist discussed GI guidelines for Narcotic avoidance as per reading his [facility] D/C summary to him w/ exactly those recommendations. Ibuprofen 800mg PO Q 8 hrs was used w/ pain decreased to minimal "much improved" since admission through day 2/discharge. Also reviewed [place]/KYPMP results w/ patient and [facility]AM[facility] discussion w/ Dr. Grimm staff at [facility] and that Dr. Grimm had given only enough meds to wean him off on 03/17/2019. No other meds were prescribed during his stay and the agreement was made Mental Health meds would need to be restarted by Dr. Grimm and his team and pain meds other than NSAIDS should be evaluated and controlled by GI or his PCP. IV Benadryl was given for restlessness during the night and the patient was able to relax with this. Patient was cooperative when he grasped this concept. Patient was continued on Ibuprofen 800mg JOSE, antiemetics, PPI and fluids. Stool checked for C Diff was negative; stool culture Day1 is negative. He was also ambulated in the halls every hour and started walking the halls regularly. On 05/07/2019 he had 5 diarrhea stools total from the 10-15/day at home and by discharge had on 2 prior to d/c AM 05/08/2019. Last Vital Signs Temp 98.5 F 05/08/19 06:00 Pulse 77 05/08/19 06:00 Resp 16 05/08/19 06:00 BP 105/67 05/08/19 06:00 Pulse Ox 100 05/08/19 06:00 Plan: Acute Abdominal pain , generalized >RLQ w/ Exacerbation of Crohn's disease --Improving to his usual normal pain status; Emphasized need to take Budesonide as Rx'd; #120 Bentyl 10mg PO Q AC & HS NRF; Zofran 8mg SL Q 8 hrs prn N/V (has Rx at [facility] 04/30/2019 that he can pick-up); Encouraged frequent ambulation at home; Low Residue Soft diet as tolerated; No narcotics as will only be additional contributor to decreased GI motility and possible obstruction; Appt. w/ GI this afternoon to discuss medication therapy including pain meds. N/V and diarrhea--Improving to a normal status for Crohn's. Monitor stools; Take K-Dur 20meq PO daily; Have K+ rechecked as per GI/PCP orders especially when having >6 stools/day. See Acute Abd Pain plan. Acute Hypokalemia--Resolved. See N/V diarrhea plan. Acute Hypomagnesia--Resolved. Normocytic Anemia--stable-Unchanged from recent testing. Would probably benefit from Fe+ supplement; Multi-vitamin w/ Vitamin B12 shot (as patient has had in past); Discuss w/ PCP. Positive UDS --Significant finding as call to Dr. Grimm of [facility] reveals patient's RX of the past were to be completed 03/17/2019 w/ Dr. Grimm not wanting patient to be on these medications at present. Will continue no pain medications except Ibuprofen 800mg PO every 8 hrs as recommended per GI/IM [facility] hospitalization 05/01- 05/03/2019 D/C Summary and Dr. Grimm plan. Dr. Grimm notes there are concerns for drug abuse compounded by patient not keeping regular clinic f-u appts as per treatment agreement. Follow-up w/ Dr. Grimm/[facility]. Depression w/ Anxiety per pt. report--Chronic w/ needing treatment. Recommended patient f-u upon d/c w/ Dr. Grimm at [facility]; patient agrees. Denies SI/HI at present.
--- NOTE | 2019-05-09 10:22 | PCM.PROG ---
Follow-up post hospital w/ patient who notes he kept his appt w/ new fire pilot, Dr. Ian Arriaga, yesterday. Dr. Arriaga is continuing him on the budesonide 9mg PO daily and his home meds and is enrolling him in [facility] program. Patient noted that he picked up his prescriptions this AM @ [place], [place]. Says he is feeling better, but still a little week. Encouraged patient to take his medications as prescribed at discharge and to not skip meals and eat healthy soft low roughage diet 3 times a day w/ snacks. Patient agreed w/ plan of care and verbalized understanding. He also notes that he has an appt. 05/16/2019 w/ his counselor at [facility]. No questions or concerns at this time.
== END 2019-05-08 10:20 | disposition home or self-care (01) ==
LOC: MEDSURG B 13:47 → ED 13:47 → MEDSURG B 16:44
PROVIDERS: ADMIT Nurse Practitioner Family; ATTEND Nurse Practitioner Family
DX: R14.3 Flatulence; Z87.19 Personal history of other diseases of the digestive system; E83.42 Hypomagnesemia; R19.7 Diarrhea, unspecified; M79.10 Myalgia, unspecified site; R11.2 Nausea with vomiting, unspecified; D64.9 Anemia, unspecified; F41.8 Other specified anxiety disorders; E87.6 Hypokalemia; E03.9 Hypothyroidism, unspecified; R82.5 Elevated urine levels of drugs, medicaments and biological substances; R10.84 Generalized abdominal pain; Z79.899 Other long term (current) drug therapy; K50.00 Crohn's disease of small intestine without complications

== ENCOUNTER 2023-01-02 10:20 | Inpatient (IN) ==
[2023-01-02] MEDS ORDERED: PERCOCET 5-325 PO STA (10:21)
--- NOTE | 2023-01-02 10:26 | ED.PDOC ---
General ED Provider: Dr. CARLOTA JESUS Chief Complaint: Abdominal Pain Stated Complaint: See above Time Seen by Provider: 01/02/23 10:21 Nursing and Triage Documentation Reviewed and Agree: Yes (unless otherwise noted in my documentation.) Review of Systems Review Of Systems Constitutional: Reports Other (documented below) All Other Systems: Other (documented below) [facility] Medical History Chronic pancreatitis K86.1 - Other chronic pancreatitis (ICD-10) Calculus of kidney N20.0 - Calculus of kidney (ICD-10) Hypothyroidism E03.9 - Hypothyroidism, unspecified (ICD-10) Crohns disease K50.90 - Crohn's disease, unspecified, without complications (ICD-10) Family History Mother Mitral valve problem Ulcerative colitis FATHER Cancer SISTER Anxiety Social History Smoking and tobacco status: Never smoker Alcohol intake: never Substance use type: does not use Lizzy/yazidi: OTHER Special lizzy needs: No Agree to transfusion: Yes Adopted: No Caregiver/support person: No Household members: other Other Household Members: sister, and her 2 children Housing: house Marital status: S SINGLE Lives independently: Yes Number of children: 0 Highest education level completed: high school graduate Financial difficulty paying for basics: not very hard service: No Current occupational status: disabled Current occupation: on disability due to Chron's disease Pets and animals: No Leisure activites: exercise History of recent travel: No Sexually active: Yes Seatbelt use: always Drives intoxicated or rides with intoxicated steam train driver: No Water heater temperature set < 120 degrees: Yes Working smoke detector in home: Yes Fire extinguisher in home: Yes Carbon monoxide detector in home: Yes Firearms in home: No Surgical History Colectomy Physical Exam Physical Exam Appearance: Reports Other (documented below if examined) Ill-appearing: Not Applicable (documented below if examined) Pain Distress: Not Applicable (documented below if examined) Eyes: Reports Other (documented below if examined) ENT: Reports Other (documented below if examined) Neck: Not Examined (documented below if examined) Respiratory: Reports Other (documented below if examined) Cardiovascular: Reports Other (documented below if examined) GI/: Reports Other (documented below if examined) Musculoskeletal: Reports Other (documented below if examined) Skin: Reports Other (documented below if examined) Neurological: Reports Other (documented below if examined) Psychiatric: Reports Other (documented below if examined) Critical Care Note Critical Care Note Total Critical Care Time (mins): 0 Course Course 01/02/23 10:55 01/02/23 10:55 Orders, Labs, Meds: Lab Review 01/02/23 10:55 WBC 6.51 RBC 4.18 L Hgb 12.3 L Hct 36.0 L MCV 86.1 MCH 29.4 MCHC 34.2 RDW Coeff of Svitlana 13.3 Plt Count 382 Immature Gran % (Auto) 0.2 Neut % (Auto) 56.3 Lymph % (Auto) 32.0 [place] % (Auto) 9.8 Eos % (Auto) 1.5 Baso % (Auto) 0.2 Neut # (Auto) 3.7 Lymph # (Auto) 2.1 [place] # (Auto) 0.6 Eos # (Auto) 0.1 Baso # (Auto) 0.0 Immature Gran # (Auto) 0.0 Sodium 137.0 Potassium 3.10 L Chloride 107.0 Carbon Dioxide 19.8 L Anion Gap 13.30 BUN 16.6 Creatinine 1.17 H Estimated GFR (MDRD) 69.00 BUN/Creatinine Ratio 14.18 Glucose 118.6 H Calcium 9.05 Magnesium 2.02 Amylase 93.3 Lipase 178.3 Orders Category Date Time Status ADMIT PATIENT INPATIENT .TO [facility] (NON-MONITORED ADMISSION 01/02/23 12:06 Active BED) AMYLASE Stat LAB 01/02/23 10:55 Completed BMP [BASIC METABOLIC PANEL] Stat LAB 01/02/23 10:55 Completed CBC W/ AUTO DIFF Stat LAB 01/02/23 10:55 Completed COVID [SARS COV-2 RNA RAPID RICHIE] Stat LAB 01/02/23 12:38 Received LIPASE Stat LAB 01/02/23 10:55 Completed MAGNESIUM Stat LAB 01/02/23 10:55 Completed Droperidol [Inapsine] Meds 01/02/23 10:37 Discontinued 5 mg IV ONCE ONE Methylprednisolone Sod Succ/Pf [Solu-Medrol 125 mg] Meds 01/02/23 10:45 Discontinued 60 mg IVP ONCE ONE Potassium Chloride [K-Dur] Meds 01/02/23 12:07 Discontinued 40 meq PO ONCE STA Ringers Lactated Solution [Lactated Ringers] 1,000 ml Meds 01/02/23 10:37 Discontinued IV BOLUS Ringers Lactated Solution [Lactated Ringers] 1,000 ml Meds 01/02/23 10:37 Discontinued IV BOLUS ABDOMEN, SERIES FLAT & UPRIGHT Stat RADS 01/02/23 10:38 Completed Medications Discontinued Medications Generic Name Dose Route Start Last Admin Trade Name Freq PRN Reason Stop Dose Admin Droperidol 5 mg 01/02/23 10:37 01/02/23 11:10 Droperidol 5 Mg/2 Ml Vial IV 01/02/23 10:38 5 mg ONCE ONE Administration Lactated Ringer's 1,000 mls @ 1,000 mls/hr 01/02/23 10:37 01/02/23 11:08 Lactated Ringers IV 01/02/23 11:36 1,000 mls/hr BOLUS STA Administration Lactated Ringer's 1,000 mls @ 2,000 mls/hr 01/02/23 10:37 01/02/23 12:18 Lactated Ringers IV 01/02/23 11:06 2,000 mls/hr BOLUS STA Administration Methylprednisolone Sodium Succinate 60 mg 01/02/23 10:45 01/02/23 11:09 Methylprednisolone Sod Succ/Pf 125 Mg/2 Ml Vial IVP 01/02/23 10:46 60 mg ONCE ONE Administration Potassium Chloride 40 meq 01/02/23 12:07 01/02/23 12:17 Potassium Chloride 20 Meq Tab PO 01/02/23 12:08 40 meq ONCE STA Administration Vital Signs: Temp Pulse Resp BP Pulse Ox 01/02/23 10:26 98.0 F 133 H 16 111/64 98 Discharge Plan Discharge Patient Disposition: ADMITTED INPATIENT Discharge Problem: Exacerbation of Crohn's disease of small intestine Did you review [place] NIGHT SHIFT for ALL controlled substances?: Not Applicable ED Provider: CARLOTA JESUS Condition: Stable Physician Progress Note: Disclaimer: This note was dictated by speech recognition technology. Minor errors in hotel maintenance technician may be present. Please call and notify me immediately for clarification or corrections. CC: HPI: The problem list, allergies, current medications and pharmacy records were reviewed and updated. ROS is included above. PE: Vital signs reviewed as well as all nursing documentation. General: Awake, alert, no acute distress, not toxic appearing Overall, the patient is atraumatic, has no deformities, has no focal deficits, has no inappropriate behavior. Respiratory: No distress Cardiac: no edema or JVD, RRR MDM: All results and reports for tests that were done in the emergency department have been reviewed and considered in the planning and disposition process. DD: Acute gastroenteritis Acute appendicitis Acute colitis Acute diverticulitis Acute cholecystitis Acute hepatitis Acute pancreatitis Acute gastritis GERD Acute esophagitis Acute cystitis Acute pyelonephritis Ureteral calculus Pleurisy Pneumonia Pericarditis Pericardial effusion ACS PE Plan: Chart reviewed, CBC, BMP, amylase, flat and upright abdominal x-ray, lipase 2 L of LR, analgesia with droperidol and Solu-Medrol Interpretation of tests: Hypokalemia worsening, metabolic acidosis, acute kidney injury, imaging was independently reviewed and interpreted and showed few fluid levels in the right lower quadrant without any evidence of bowel obstruction. Further action: Potassium replaced, discussed with hospitalist who further discussed with her team and decided to admit the patient for Crohn exacerbation. I do not think the patient needs a surgical consult at this time. He has a known pathology and it is uncomplicated at this time. He is in need for pain control and IV hydration along with monitoring his kidney functions and electrolytes.
[2023-01-02] MEDS ORDERED: LACTATED RINGERS 1,000 ML IV STA ×2 (10:37)
[2023-01-02] MEDS ORDERED: INAPSINE IV ONE (10:37)
[2023-01-02] MEDS ORDERED: SOLU-MEDROL 125 MG IVP ONE (10:45)
[2023-01-02 11:03] LABS: BASOPHILS % (AUTO) 0.2 % (0.0-3.0); EOSINOPHILS # (AUTO) 0.1 K/ul (0.0-0.7); EOSINOPHILS % (AUTO) 1.5 % (0.0-7.0); HEMOGLOBIN 12.3 g/dl (14.0-18.0); IMMATURE GRANULOCYTE % (AUTO) 0.2 % (0.0-5.0); LYMPHOCYTES # (AUTO) 2.1 K/uL (0.60-3.4); MEAN CORPUSCULAR HEMOGLOBIN 29.4 pg (27.0-31.0); MEAN CORPUSCULAR HGB CONC 34.2 (31.8-35.4); MEAN CORPUSCULAR VOLUME 86.1 fl (80.0-94.0); MONOCYTES # (AUTO) 0.6 K/uL (0.4-2.0); MONOCYTES % (AUTO) 9.8 (0-10); NEUTROPHILS # (AUTO) 3.7 K/ul (2.0-6.9); NEUTROPHILS % (AUTO) 56.3 % (42.2-75.2); PLATELET COUNT 382 10^3/uL (140-440); RDW COEFFICIENT OF VARIATION 13.3 % (11.6-14.8); RED BLOOD COUNT 4.18 10^6/ul (4.70-6.10); WHITE BLOOD COUNT 6.51 K/ul (4.2-10.2)
[2023-01-02 11:13] LABS: BLOOD UREA NITROGEN 16.6 mg/dL (9-20); CALCIUM 9.05 mg/dL (8.4-10.2); CARBON DIOXIDE 19.8 mmol/L (22-30.0); CREATININE 1.17 mg/dL (0.60-1.10); GLUCOSE 118.6 mg/dL (74-106); LIPASE 178.3 U/L (23-300); MAGNESIUM 2.02 mg/dL (1.6-2.3); POTASSIUM 3.1 mmol/L (3.5-5.1)
--- NOTE | 2023-01-02 11:59 | DI ---
EXAM: ABDOMEN TWO-VIEW SUPINE AND UPRIGHT HISTORY: Follow-up ileus COMPARISON: 01/01/2023 FINDINGS: Supine and upright view of the abdomen is obtained. Bowel gas pattern is nonobstructive. Sutures are present in the right mid abdomen. There is no soft tissue mass or pathologic calcification. Skeletal structures are unremarkable. On the upright radiograph there is no free air. IMPRESSION: No acute intra-abdominal or pelvic abnormality. 2. Sutures are present in the mid right abdomen
[2023-01-02] MEDS ORDERED: K-DUR PO STA (12:07)
--- NOTE | 2023-01-02 12:16 | PCM ---
Date of Service Date Seen by Provider: 01/02/23 Time Seen by Provider: 13:40 Admit Day/Time Admission Date: 01/02/23 Admission Time: 12:06 Reason for Admission Chief Complaint: ACUTE CROHNS EXACERBATION Hospital Provider Hospital Provider: Eugene Calzada [facility]-C, [facility] History of Present Illness History of Present Illness: Patient is a 37 year old male with pmhx of crohns disease, ADHD, depression, anemia, hx of pancreatitis who presents to ER with ongoing abdominal pain. Patient was evaluated in ER yesterday for similar complaints. CT at that time showed inflammation and possible ileus. He was set up to be transferred to [facility], where his GI is, but he chose to leave AMA. Patient returned today with continued abdominal pain. KUB today negative for obstruction. He was given pain medication IV, solumedrol, and fluids. His HR was initially 150s but improved to low 100s. Patient will be admitted to med surg. Patient states this feels similar to his Crohn's flare ups. Having abd pain and diarrhea. Diarrhea is chronic and unchanged for him. No blood in stool. Has nausea, but no vomiting. Last hospitalization at [facility] 11/22/22 was for biliary colic, pancreatic divisum and he left AMA. He saw his GI Kaity Murillo NP on 12/16/22. Plan to continue budesonide 9 mg daily, pain management referral, and f/u 6 months. Pt states his pain management apt was made for February 2023. Case Discussed With Case Discussed With: Patient's case was discussed with the ER Physicians, Dr. Malin. [facility] Medical History Chronic pancreatitis K86.1 - Other chronic pancreatitis (ICD-10) Calculus of kidney N20.0 - Calculus of kidney (ICD-10) Hypothyroidism E03.9 - Hypothyroidism, unspecified (ICD-10) Crohns disease K50.90 - Crohn's disease, unspecified, without complications (ICD-10) Surgical History Colectomy Family History Mother Mitral valve problem Ulcerative colitis FATHER Cancer SISTER Anxiety Social History Smoking and tobacco status: Never smoker Alcohol intake: never Substance use type: does not use Lizzy/mandaen: OTHER Special lizzy needs: No Agree to transfusion: Yes Adopted: No Caregiver/support person: No Household members: other Other Household Members: sister, and her 2 children Housing: house Marital status: S SINGLE Lives independently: Yes Number of children: 0 Highest education level completed: high school graduate Financial difficulty paying for basics: not very hard service: No Current occupational status: disabled Current occupation: on disability due to Chron's disease Pets and animals: No Leisure activites: exercise History of recent travel: No Sexually active: Yes Seatbelt use: always Drives intoxicated or rides with intoxicated shuttle driver: No Water heater temperature set < 120 degrees: Yes Working smoke detector in home: Yes Fire extinguisher in home: Yes Carbon monoxide detector in home: Yes Firearms in home: No Allergies Allergies Allergy/AdvReac Type Severity Reaction Status Date / Time ciprofloxacin [From Cipro] AdvReac Itching Verified 01/02/23 10:35 ketorolac [From Toradol] AdvReac Itching Verified 01/02/23 10:35 prochlorperazine AdvReac Anxiety Verified 01/02/23 10:35 [From Compazine] Current Medications Home Medications famotidine 20 mg tablet 20 mg PO BID 09/06/21 [History Confirmed 01/02/23 Last Taken Unknown] acetaminophen 325 mg capsule (Tylenol) 650 mg (2 x 325 mg) PO Q8H PRN pain #30 caps 11/16/21 [Rx Confirmed 01/02/23 Last Taken Unknown] multivitamin with minerals-folic acid 200 mcg chewable tablet (Multivitamin Gummies) 1 tab PO DAILY 12/13/21 [History Confirmed 01/02/23 Last Taken Unknown] tramadol 50 mg tablet 50 mg PO Q8H PRN pain #10 tabs 06/27/22 [Rx Confirmed 01/02/23 Last Taken Unknown] budesonide 3 mg capsule,delayed,extended release 9 mg PO DAILY 09/24/22 [History Confirmed 01/02/23 Last Taken Unknown] ibuprofen 600 mg tablet 600 mg PO Q6H PRN pain #20 tabs 09/24/22 [Rx Confirmed 01/02/23 Last Taken Unknown] ondansetron 4 mg disintegrating tablet 4 mg PO Q8H PRN nausea and vomiting #10 tabs 11/28/22 [Rx Confirmed 01/02/23 Last Taken Unknown] Home Acetaminophen (Acetaminophen 325 Mg Tablet) 650 mg PO Q4H PRN PRN Reason: Mild Pain Budesonide (Budesonide Ec 3mg Cap) 9 mg PO DAILY [facility] Enoxaparin Sodium (Enoxaparin Sodium 40 Mg/0.4 Ml Syr) 40 mg SUBCUT DAILY [facility] Famotidine (Famotidine Inj 20 Mg/2 Ml Vial) 20 mg IVP Q12HR [facility] Last Admin: 01/02/23 20:00 Dose: 20 mg Lactated Ringer's (Lactated Ringers) 1,000 mls @ 125 mls/hr IV .Q8H [facility] Last Admin: 01/03/23 05:25 Dose: 125 mls/hr Methylprednisolone Sodium Succinate (Methylprednisolone Sod Succ/Pf 125 Mg/2 Ml Vial) 60 mg IVP DAILY [facility] Metoclopramide HCl (Metoclopramide Hcl 10 Mg/2 Ml) 5 mg IVP Q6HR PRN PRN Reason: Nausea / Vomiting Morphine Sulfate (Morphine Sulfate 2 Mg/Ml Syringe) 2 mg IVP Q6H PRN PRN Reason: Pain Last Admin: 01/03/23 08:03 Dose: 2 mg Ondansetron HCl (Ondansetron Hcl/Pf 4 Mg/2 Ml Sdv) 4 mg IVP Q6H PRN PRN Reason: Nausea / Vomiting Last Admin: 01/02/23 19:58 Dose: 4 mg Tramadol HCl (Tramadol Hcl 50 Mg Tablet) 50 mg PO Q8HR PRN PRN Reason: Analgesia Discontinued Medications Droperidol (Droperidol 5 Mg/2 Ml Vial) 5 mg IV ONCE ONE Stop: 01/02/23 10:38 Last Admin: 01/02/23 11:10 Dose: 5 mg Lactated Ringer's (Lactated Ringers) 1,000 mls @ 1,000 mls/hr IV BOLUS STA Stop: 01/02/23 11:36 Last Infusion: 01/02/23 13:35 Dose: Infused Lactated Ringer's (Lactated Ringers) 1,000 mls @ 2,000 mls/hr IV BOLUS STA Stop: 01/02/23 11:06 Last Infusion: 01/02/23 13:36 Dose: Infused Methylprednisolone Sodium Succinate (Methylprednisolone Sod Succ/Pf 125 Mg/2 Ml Vial) 60 mg IVP ONCE ONE Stop: 01/02/23 10:46 Last Admin: 01/02/23 11:09 Dose: 60 mg Potassium Chloride (Potassium Chloride 20 Meq Tab) 40 meq PO ONCE STA Stop: 01/02/23 12:08 Last Admin: 01/02/23 12:17 Dose: 40 meq Potassium Chloride (Potassium Chloride 20 Meq Tab) 40 meq PO ONCE ONE Stop: 01/03/23 08:14 Last Admin: 01/03/23 08:52 Dose: 40 meq Review of Systems Constitutional: Denies Fever or Chills Head: Reports Normocephalic and Atraumatic Throat: Denies Sore Throat Cardiovascular: Denies Chest pain, Chest Pressure or Edema Respiratory: Denies Cough or Shortness of air Gastrointestinal: Reports Nausea, Diarrhea (+chronic, unchanged ) and Abdominal pain; Denies Vomiting, Black Tarry Stools or Melena Genitourinary: Denies Dysuria or Hematuria Neurological: Denies Headache, Dizziness, Syncope or Weakness Physical examination Most Recent Vital Signs: Most Recent Vital Signs Temperature 98.0 F 01/02/23 10:26 Temperature Source Temporal Artery Scan 01/02/23 10:26 Pulse Rate 133 H 01/02/23 10:26 Respiratory Rate 16 01/02/23 10:26 Blood Pressure 111/64 01/02/23 10:26 O2 Sat by Pulse Oximetry 98 01/02/23 10:26 Height 5 ft 5 in 01/02/23 10:26 Weight 128 lb 01/02/23 10:26 Telemetry Heart Rate 71 05/21/21 10:07 Appearance: Positive No Apparent Distress and Alert and Oriented x3 Skin: Positive [place], Warm and Good Turgor; Negative Rashes HEENT: Positive Normocephalic and Atraumatic Neck: Positive Supple and Midline Trachea Chest/Lungs: Positive Symmetrical With Equal Breath Sounds and Clear to Auscultation Bilaterally; Negative Rales, Rhonci or Wheezes Heart: Positive Tachycardia GI/: Positive Soft, Bowel Sounds Normal, No Distention and Tender; Negative Nontender or Rebound Tenderness Extremities: Negative Edema Neurological: Positive Cranial Nerves Intact, Alert and Muscle Strength 5/5 in Upper and Lower Extremities Bilaterally Psychiatric: Positive Oriented x4, Appropriate Mood, Appropriate Affect and Intact Memory Labs This Visit Labs This Visit: Labs This Visit 01/02/23 10:55 WBC 6.51 RBC 4.18 L Hgb 12.3 L Hct 36.0 L MCV 86.1 MCH 29.4 MCHC 34.2 RDW Coeff of Svitlana 13.3 Plt Count 382 Immature Gran % (Auto) 0.2 Neut % (Auto) 56.3 Lymph % (Auto) 32.0 [place] % (Auto) 9.8 Eos % (Auto) 1.5 Baso % (Auto) 0.2 Neut # (Auto) 3.7 Lymph # (Auto) 2.1 [place] # (Auto) 0.6 Eos # (Auto) 0.1 Baso # (Auto) 0.0 Immature Gran # (Auto) 0.0 Sodium 137.0 Potassium 3.10 L Chloride 107.0 Carbon Dioxide 19.8 L Anion Gap 13.30 BUN 16.6 Creatinine 1.17 H Estimated GFR (MDRD) 69.00 BUN/Creatinine Ratio 14.18 Glucose 118.6 H Calcium 9.05 Magnesium 2.02 Amylase 93.3 Lipase 178.3 Imaging Imaging: EXAM: ABDOMEN TWO-VIEW SUPINE AND UPRIGHT HISTORY: Follow-up ileus COMPARISON: 01/01/2023 FINDINGS: Supine and upright view of the abdomen is obtained. Bowel gas pattern is nonobstructive. Sutures are present in the right mid abdomen. There is no soft tissue mass or pathologic calcification. Skeletal structures are unremarkable. On the upright radiograph there is no free air. IMPRESSION: No acute intra-abdominal or pelvic abnormality. 2. Sutures are present in the mid right abdomen 01/01/23 EXAM: CT ABDOMEN PELVIS WITHOUT INTRAVENOUS CONTRAST 01/01/2023. SAGITTAL AND CORONAL REFORMATTED IMAGES OBTAINED HISTORY: Abdominal pain. Crohns disease COMPARISON: 11/28/2022 FINDINGS: The liver, gallbladder, adrenal glands and kidneys show no acute abnormality. Complex appearing renal cysts appears stable. No hydronephrosis. The spleen and pancreas show no acute abnormality. With there is no evidence of bowel obstruction. Right abdominal surgical anastomoses at the level of terminal ileum and proximal transverse colon. Proximal to the level of surgical anastomoses there is circumferential small bowel mucosal thickening with adjacent inflammatory stranding / edema. Reactive appearing mesenteric lymphadenopathy. This appears similar to the prior study. This is likely infectious/inflammatory and likely relates to underlying Crohns disease. No free air, free fluid or abscess. Air-fluid levels throughout distal small bowel likely due to associated ileus. No acute osseous abnormality. IMPRESSION: 1. Circumferential mucosal thickening with inflammatory stranding / edema at the level of the terminal ileum. This extends to the level of colonic surgical anastomoses. This is likely infectious/inflammatory and likely relates to underlying Crohns disease. 2. Stable reactive appearing mesenteric lymphadenopathy. 3. Air-fluid levels within upper normal distal small bowel likely due to associated ileus. 4. Limited examination due to lack of intravenous contrast. Review Statement Review Statement: I have independently reviewed and interpreted the labs/EKGs/imaging that were ordered by the ER provider. I have reviewed all outside records that are available currently in our EMR including imaging/notes/labs from previous visits. Plan Plan: 1. Acute Crohn's exacerbation - Cont budesonide. Cont solumedrol 60 mg qd. Will transition to prednisone when abd pain better controlled. NPO until pain controlled, may advance once not requiring IV pain meds. Morphine prn. Zofran prn. F/u outpatient with GI. 2. GERD - Cont pepcid DVT Prophylaxis: Time Spent: Greater than 80 minutes spent with patient, 50% of the time spent with this patient was devoted to counseling and coordination of care. [facility] minutes spent discussing advance care planning. FULL CODE Admit to: Inpatient Discussed Plan of Care with Dr. Felix Mahajan.
[2023-01-02 12:52] LABS: SARS COV-2 RNA RAPID NAAT NEGATIVE (NEGATIVE)
[2023-01-02 13:23] VITALS: BMI 21.5
[2023-01-02] MEDS ORDERED: TYLENOL PO PRN (13:45)
[2023-01-02] MEDS: LACTATED RINGERS 1,000 ML IV SCH ×2 (13:57→21:56)
[2023-01-02] MEDS: ZOFRAN 4 MG/2 ML IVP PRN ×2 (14:10→19:58)
[2023-01-02] MEDS: MORPHINE 2 MG/ML SYRINGE IVP PRN ×2 (14:10→19:58)
[2023-01-02 14:34] LABS: ERYTHROCYTE SEDIMENTATION RATE 22 mm/hr (0-15)
[2023-01-02] MEDS: PEPCID IVP SCH (20:00)
[2023-01-03] MEDS: MORPHINE 2 MG/ML SYRINGE IVP PRN ×4 (02:03→20:19)
[2023-01-03 04:41] LABS: BASOPHILS % (AUTO) 0.2 % (0.0-3.0); EOSINOPHILS % (AUTO) 0.1 % (0.0-7.0); HEMATOCRIT 30.7 % (42.0-52.0); HEMOGLOBIN 10.1 g/dl (14.0-18.0); IMMATURE GRANULOCYTE % (AUTO) 0.4 % (0.0-5.0); LYMPHOCYTES # (AUTO) 2.1 K/uL (0.60-3.4); LYMPHOCYTES % (AUTO) 19.6 (10.0-50.0); MEAN CORPUSCULAR HEMOGLOBIN 28.6 pg (27.0-31.0); MEAN CORPUSCULAR HGB CONC 32.9 (31.8-35.4); MONOCYTES # (AUTO) 0.8 K/uL (0.4-2.0); MONOCYTES % (AUTO) 7.8 (0-10); NEUTROPHILS # (AUTO) 7.7 K/ul (2.0-6.9); NEUTROPHILS % (AUTO) 71.9 % (42.2-75.2); PLATELET COUNT 326 10^3/uL (140-440); RDW COEFFICIENT OF VARIATION 13.3 % (11.6-14.8); RED BLOOD COUNT 3.53 10^6/ul (4.70-6.10); WHITE BLOOD COUNT 10.76 K/ul (4.2-10.2)
[2023-01-03 04:54] LABS: ALANINE AMINOTRANSFERASE 26.1 U/L (0-50); ALBUMIN 3.55 g/dL (3.5-5.0); ALKALINE PHOSPHATASE 81.8 U/L (38-126); ASPARTATE AMINO TRANSFERASE 23.2 U/L (17-59); BILIRUBIN,TOTAL 0.58 mg/dL (0.2-1.3); BLOOD UREA NITROGEN 12.4 mg/dL (9-20); CALCIUM 8.68 mg/dL (8.4-10.2); CARBON DIOXIDE 22.9 mmol/L (22-30.0); CREATININE 0.91 mg/dL (0.60-1.10); GLUCOSE 87.5 mg/dL (74-106); POTASSIUM 3.14 mmol/L (3.5-5.1); SODIUM 138.5 mmol/L (134.5-145); TOTAL PROTEIN 6.48 g/dL (6.3-8.2)
[2023-01-03] MEDS: LACTATED RINGERS 1,000 ML IV SCH ×3 (05:25→21:21)
[2023-01-03 05:33] LABS: ERYTHROCYTE SEDIMENTATION RATE 14 mm/hr (0-15)
[2023-01-03] MEDS ORDERED: K-DUR PO ONE ×2 (08:13→15:00)
--- NOTE | 2023-01-03 09:07 | PCM.PROG ---
Date/Time Seen Date Seen by Provider: 01/03/23 Time Seen by Provider: 08:30 Provider Provider: EUGENE CALZADA PA-C, [facility] Chief Complaint Chief Complaint: ACUTE CROHNS EXACERBATION Subjective Subjective: Patient still requiring IV pain meds. Having nausea as well. Has been ambulatory in the room. Urinating well. Hasn't had a BM since yesterday morning but is passing gas. Would like to have something to drink/eat. Objective Appearance: Positive No Apparent Distress and Alert and Oriented x3 Chest/Lungs: Positive Clear to Auscultation Bilaterally; Negative Rales, Rhonci or Wheezes Heart: Positive RRR GI/: Positive Soft, Bowel Sounds Normal, No Distention and Tender (+generalized tenderness, worse on RLQ); Negative Nontender Neurological: Positive Cranial Nerves Intact, Alert, Oriented and Muscle Strength 5/5 in Upper and Lower Extremities Bilaterally Vital Signs Vital Signs: Vital Signs: Last 24 Hours 01/02/23 10:26 01/02/23 13:11 01/02/23 13:11 Temperature 98.0 F 97.5 F L Temperature Source Temporal Artery Scan Oral Pulse Rate 133 H 92 Pulse Rate [Apical] 92 Respiratory Rate 16 18 16 Blood Pressure 111/64 Blood Pressure Mean Blood Pressure Left Arm 104/65 Blood Pressure Location Blood Pressure Position Supine O2 Sat by Pulse Oximetry 98 100 Oxygen Delivery Method Room Air Room Air Height 5 ft 5 in 5 ft 5 in Weight 128 lb 129 lb 4.8 oz 01/02/23 19:13 01/02/23 21:08 01/03/23 05:13 Temperature 98.0 F 97.3 F L Temperature Source Oral Oral Pulse Rate 97 90 Pulse Rate [Apical] 72 Respiratory Rate 16 18 16 Blood Pressure 100/62 100/56 L Blood Pressure Mean 74 70 Blood Pressure Left Arm Blood Pressure Location Left Arm Right Arm Blood Pressure Position Supine Supine O2 Sat by Pulse Oximetry 99 100 Oxygen Delivery Method Room Air Room Air Room Air Height Weight Lab Results Lab Results: Lab Results: Last 24 Hours 01/03/23 01/02/23 01/02/23 04:30 12:38 10:55 WBC 10.76 H 6.51 RBC 3.53 L 4.18 L Hgb 10.1 L 12.3 L Hct 30.7 L 36.0 L MCV 87.0 86.1 MCH 28.6 29.4 MCHC 32.9 34.2 RDW Coeff of Svitlana 13.3 13.3 Plt Count 326 382 Immature Gran % (Auto) 0.4 0.2 Neut % (Auto) 71.9 56.3 Lymph % (Auto) 19.6 32.0 [place] % (Auto) 7.8 9.8 Eos % (Auto) 0.1 1.5 Baso % (Auto) 0.2 0.2 Neut # (Auto) 7.7 H 3.7 Lymph # (Auto) 2.1 2.1 [place] # (Auto) 0.8 0.6 Eos # (Auto) 0.0 0.1 Baso # (Auto) 0.0 0.0 Immature Gran # (Auto) 0.0 0.0 ESR 14 22 H Sodium 138.5 137.0 Potassium 3.14 L 3.10 L Chloride 110.0 H 107.0 Carbon Dioxide 22.9 19.8 L Anion Gap 8.74 13.30 BUN 12.4 16.6 Creatinine 0.91 1.17 H Estimated GFR (MDRD) 93.00 69.00 BUN/Creatinine Ratio 13.62 14.18 Glucose 87.5 118.6 H Calcium 8.68 9.05 Magnesium 2.02 Total Bilirubin 0.58 AST 23.2 ALT 26.1 Alkaline Phosphatase 81.8 D Total Protein 6.48 Albumin 3.55 Globulin 2.93 Albumin/Globulin Ratio 1.21 Amylase 93.3 Lipase 178.3 Procalcitonin 0.16 H SARS CoV-2 RNA Rapid RICHIE Negative Additional Comments Additional Comments: I have independently reviewed and interpreted the labs/EKGs/imaging ordered during this hospital stay. I have reviewed outside records that are available in our EMR that pertain to medical stay including imaging/notes/labs from previous visits. Active Medications Active Medications: Medications Generic Name Dose Route Start Last Admin Trade Name Freq PRN Reason Stop Dose Admin Acetaminophen 650 mg 01/02/23 13:45 Acetaminophen 325 Mg Tablet PO Q4H PRN Mild Pain Budesonide 9 mg 01/03/23 09:00 Budesonide Ec 3mg Cap PO DAILY JOSE Enoxaparin Sodium 40 mg 01/03/23 09:00 Enoxaparin Sodium 40 Mg/0.4 Ml Syr SUBCUT DAILY JOSE Famotidine 20 mg 01/02/23 21:00 01/02/23 20:00 Famotidine Inj 20 Mg/2 Ml Vial IVP 20 mg Q12HR JOSE Administration Lactated Ringer's 1,000 mls @ 125 mls/hr 01/02/23 14:00 01/03/23 05:25 Lactated Ringers IV 125 mls/hr .Q8H JOSE Administration Methylprednisolone Sodium Succinate 60 mg 01/03/23 09:00 Methylprednisolone Sod Succ/Pf 125 Mg/2 Ml Vial IVP DAILY JOSE Metoclopramide HCl 5 mg 01/03/23 09:04 Metoclopramide Hcl 10 Mg/2 Ml IVP Q6HR PRN Nausea / Vomiting Morphine Sulfate 2 mg 01/02/23 13:45 01/03/23 08:03 Morphine Sulfate 2 Mg/Ml Syringe IVP 2 mg Q6H PRN Administration Pain Ondansetron HCl 4 mg 01/02/23 13:45 01/02/23 19:58 Ondansetron Hcl/Pf 4 Mg/2 Ml Sdv IVP 4 mg Q6H PRN Administration Nausea / Vomiting Tramadol HCl 50 mg 01/02/23 13:52 Tramadol Hcl 50 Mg Tablet PO Q8HR PRN Analgesia Plan Plan: 1. Acute Crohn's exacerbation - Cont budesonide. Cont solumedrol 60 mg qd. Will transition to prednisone when abd pain better controlled. NPO until pain controlled, may advance once not requiring IV pain meds. Morphine prn. Zofran and reglan prn. F/u outpatient with GI. 2. GERD - Cont pepcid 3. Hypokalemia - Replaced DVT: Lovenox Review Statement Review Statement: I have personally discussed and reviewed the patient's visit/currently labs/im aging/decision making with Dr. Mahajan, my supervising attending. Greater that 50 minutes spent with patient, 50% of the time spent with this patient was devoted to counseling and coordination of care.
[2023-01-03] MEDS: SOLU-MEDROL 125 MG IVP SCH (09:17)
[2023-01-03] MEDS: PEPCID IVP SCH ×2 (09:17→20:19)
[2023-01-03] MEDS: REGLAN IVP PRN (09:17)
[2023-01-03] MEDS: LOVENOX SUBCUT SCH (09:30)
[2023-01-03] MEDS: ENTOCORT EC PO SCH (10:29)
[2023-01-03] MEDS: ULTRAM PO PRN ×2 (15:38→23:28)
[2023-01-04] MEDS: MORPHINE 2 MG/ML SYRINGE IVP PRN ×2 (02:08→08:15)
[2023-01-04] MEDS: REGLAN IVP PRN (02:08)
[2023-01-04] MEDS: LACTATED RINGERS 1,000 ML IV SCH ×3 (04:51→12:59)
[2023-01-04 05:33] LABS: BASOPHILS % (AUTO) 0.3 % (0.0-3.0); EOSINOPHILS % (AUTO) 0.4 % (0.0-7.0); HEMATOCRIT 30.6 % (42.0-52.0); IMMATURE GRANULOCYTE % (AUTO) 0.3 % (0.0-5.0); LYMPHOCYTES # (AUTO) 2.8 K/uL (0.60-3.4); LYMPHOCYTES % (AUTO) 38.5 (10.0-50.0); MEAN CORPUSCULAR HEMOGLOBIN 28.8 pg (27.0-31.0); MEAN CORPUSCULAR HGB CONC 32.7 (31.8-35.4); MEAN CORPUSCULAR VOLUME 88.2 fl (80.0-94.0); MONOCYTES # (AUTO) 0.7 K/uL (0.4-2.0); MONOCYTES % (AUTO) 10.1 (0-10); NEUTROPHILS # (AUTO) 3.7 K/ul (2.0-6.9); NEUTROPHILS % (AUTO) 50.4 % (42.2-75.2); PLATELET COUNT 312 10^3/uL (140-440); RDW COEFFICIENT OF VARIATION 13.6 % (11.6-14.8); RED BLOOD COUNT 3.47 10^6/ul (4.70-6.10); WHITE BLOOD COUNT 7.24 K/ul (4.2-10.2)
[2023-01-04 05:47] LABS: ALANINE AMINOTRANSFERASE 23.9 U/L (0-50); ALBUMIN 3.69 g/dL (3.5-5.0); ALKALINE PHOSPHATASE 72.4 U/L (38-126); ASPARTATE AMINO TRANSFERASE 20.5 U/L (17-59); BILIRUBIN,TOTAL 0.6 mg/dL (0.2-1.3); BLOOD UREA NITROGEN 12.1 mg/dL (9-20); CALCIUM 8.7 mg/dL (8.4-10.2); CARBON DIOXIDE 29.2 mmol/L (22-30.0); CHLORIDE 103.8 mmol/L (98-107); CREATININE 0.93 mg/dL (0.60-1.10); GLUCOSE 81.8 mg/dL (74-106); POTASSIUM 3.63 mmol/L (3.5-5.1); SODIUM 138.2 mmol/L (134.5-145); TOTAL PROTEIN 6.58 g/dL (6.3-8.2)
[2023-01-04 06:44] LABS: ERYTHROCYTE SEDIMENTATION RATE 14 mm/hr (0-15)
[2023-01-04] MEDS: SOLU-MEDROL 125 MG IVP SCH (09:29)
[2023-01-04] MEDS: PEPCID IVP SCH (09:32)
[2023-01-04] MEDS: LOVENOX SUBCUT SCH (09:37)
[2023-01-04] MEDS ORDERED: ULTRAM PO PRN (09:43)
[2023-01-04 10:17] VITALS: BP 105/65; PULSE 68; RESP 12; TEMP 98.2
[2023-01-04 10:47] LABS: BILIRUBIN,URINE Negative (NEGATIVE); CLARITY,URINE Clear (CLEAR); COLOR,URINE Yellow (YELLOW); GLUCOSE, URINE (UA) Negative (NEGATIVE); KETONES,URINE Negative (NEGATIVE); LEUKOCYTE ESTERASE ,URINE Negative (NEGATIVE); NITRITE,URINE Negative (NEGATIVE); PROTEIN,URINE Negative (NEGATIVE); URINE, BLOOD Negative (NEGATIVE); UROBILINOGEN,URINE 0.2 (0.2)
[2023-01-04] MEDS: ZOFRAN 4 MG/2 ML IVP PRN (11:20)
[2023-01-04] MEDS: ENTOCORT EC PO SCH (11:20)
--- NOTE | 2023-01-04 13:26 | DCSUM ---
Admission Date Admission Date: 01/02/23 Discharge Date Discharge Date: 01/04/23 Admission Diagnosis Admission Diagnosis: 1. Acute Crohn's exacerbation 2. GERD Discharge Diagnosis Discharge Diagnosis: 1. Acute Crohn's exacerbation - Improving 2. GERD - Chronic, stable Hospital Provider Hospital Provider: OLIVIA BARBOZA, [facility] Summary of History and Physical Summary of History and Physical: Patient is a 37 year old male with pmhx of crohns disease, ADHD, depression, anemia, hx of pancreatitis who presents to ER with ongoing abdominal pain. Patient was evaluated in ER yesterday for similar complaints. CT at that time showed inflammation and possible ileus. He was set up to be transferred to [facility], where his GI is, but he chose to leave AMA. Patient returned today with continued abdominal pain. KUB today negative for obstruction. He was given pain medication IV, solumedrol, and fluids. His HR was initially 150s but improved to low 100s. Patient will be admitted to med surg. Patient states this feels similar to his Crohn's flare ups. Having abd pain and diarrhea. Diarrhea is chronic and unchanged for him. No blood in stool. Has nausea, but no vomiting. Last hospitalization at [facility] 11/22/22 was for biliary colic, pancreatic divisum and he left A. He saw his GI Kaity Murillo NP on 12/16/22. Plan to continue budesonide 9 mg daily, pain management referral, and f/u 6 months. Pt states his pain management apt was made for February 2023. Hospital Course Subjective: During stay, patient received LR@125mL/hr, remained NPO until pain controlled this am, advanced diet and able to tolerate clear liquids, received solumedrol 60 mg daily, and given tramadol and morphine PRN for pain. Transitioned to PO pain meds and tolerating well. Has appointment with GI in 6 months. Has appointment with pain management in February 2023. Continue all home medications. Changes made as noted on d/c instructions. Appearance: Pleasant, No Apparent Distress, Alert and Well-appearing Vital Signs: Most Recent Vital Signs Temperature 98.2 F 01/04/23 09:56 Temperature Source Oral 01/04/23 09:56 Temperature Source Temporal Artery Scan 01/02/23 10:26 Pulse Rate 68 01/04/23 09:56 Respiratory Rate 12 10/23/23 09:56 Blood Pressure 105/65 01/04/23 09:56 Blood Pressure Mean 78 01/04/23 09:56 Blood Pressure Left Arm 104/65 01/02/23 13:11 Blood Pressure Location Right Arm 01/04/23 09:56 Blood Pressure Position Supine 01/04/23 09:56 O2 Sat by Pulse Oximetry 96 01/04/23 09:56 Oxygen Delivery Method Room Air 01/04/23 09:56 Height 5 ft 5 in 01/04/23 09:20 Weight 129 lb 01/04/23 09:20 Telemetry Heart Rate 71 05/21/21 10:07 Lab Results Last 24 Hours: 01/04/23 01/04/23 10:16 05:20 WBC 7.24 RBC 3.47 L Hgb 10.0 L Hct 30.6 L MCV 88.2 MCH 28.8 MCHC 32.7 RDW Coeff of Svitlana 13.6 Plt Count 312 Immature Gran % (Auto) 0.3 Neut % (Auto) 50.4 Lymph % (Auto) 38.5 Pope % (Auto) 10.1 H Eos % (Auto) 0.4 Baso % (Auto) 0.3 Neut # (Auto) 3.7 Lymph # (Auto) 2.8 [place] # (Auto) 0.7 Eos # (Auto) 0.0 Baso # (Auto) 0.0 Immature Gran # (Auto) 0.0 ESR 14 Sodium 138.2 Potassium 3.63 Chloride 103.8 Carbon Dioxide 29.2 Anion Gap 8.83 BUN 12.1 Creatinine 0.93 Estimated GFR (MDRD) 90.00 BUN/Creatinine Ratio 13.01 Glucose 81.8 Calcium 8.70 Total Bilirubin 0.60 AST 20.5 ALT 23.9 Alkaline Phosphatase 72.4 Total Protein 6.58 Albumin 3.69 Globulin 2.89 Albumin/Globulin Ratio 1.27 Urine Color Yellow Urine Clarity Clear Urine pH 7.0 Ur Specific [place] 1.015 Urine Protein Negative Urine Glucose (UA) Negative Urine Ketones Negative Urine Blood Negative Urine Nitrite Negative Urine Bilirubin Negative Urine Urobilinogen 0.2 Ur Leukocyte Esterase Negative Discharge Instructions Discharge Planning: Discharge Planning > 40 minutes If patient is discharged with left ventricular systolic dysfunction: NA Discharged with a beta obed? [] If no, why not? [] Discharged with an saw/arb? [] If no, why not? [] Clear liquid diet advance as tolerated Activity as tolerated Tramadol 50 mg Q6H prn for pain Prednisone 10 mg taper pack FU PCP this week Discharge Medications: Medications at Discharge (Home Meds & RX) famotidine 20 mg tablet 20 mg PO BID 09/06/21 acetaminophen 325 mg capsule (Tylenol) 650 mg (2 x 325 mg) PO Q8H PRN pain #30 caps 11/16/21 multivitamin with minerals-folic acid 200 mcg chewable tablet (Multivitamin Gummies) 1 tab PO DAILY 12/13/21 tramadol 50 mg tablet 50 mg PO Q8H PRN pain #10 tabs 06/27/22 budesonide 3 mg capsule,delayed,extended release 9 mg PO DAILY 09/24/22 ibuprofen 600 mg tablet 600 mg PO Q6H PRN pain #20 tabs 09/24/22 ondansetron 4 mg disintegrating tablet 4 mg PO Q8H PRN nausea and vomiting #10 tabs 11/28/22 prednisone 10 mg tablets in a dose pack See Rx Instructions PO .COMPLEX #21 ea 01/04/23 tramadol 50 mg tablet 50 mg PO Q6H PRN pain #14 tabs 01/04/23 Discharge Plan Discharge Discharge Orders: Discharge Patient (ONCE); Ordered 01/04/23 Ordered By: FIFI ALONZO Activity Restrictions/Additional Instructions: COMPLETE STEROID DOSE PACK DIRECTED. TAKE THIS WITH YOUR BUDESONIDE. TRAMADOL PRESCRIBED EVERY 6 HOURS NEEDED FOR UNCONTROLLED PAIN CLEAR LIQUID DIET ADVANCE TOLERATED. FOLLOW-UP WITH PCP LATER THIS WEEK Instructions: Crohn Disease (GEN) Patient Disposition: HOME SELF-CARE Prescriptions: New prednisone 10 mg tablets,dose pack See Rx Instructions .ROUTE .COMPLEX Qty: 21 0RF Rx Instructions: orally per package directions tramadol 50 mg tablet 50 mg PO Q6H PRN (Reason: pain) Qty: 14 0RF Continued Multivitamin Gummies 200 mcg Tablet,Chewable 1 tab PO DAILY budesonide 3 mg capsule,delayed,extend.release 9 mg PO DAILY ibuprofen 600 mg tablet 600 mg PO Q6H PRN (Reason: pain) Qty: 20 0RF famotidine 20 mg Tablet 20 mg PO BID acetaminophen [Tylenol] 325 mg capsule 650 mg PO Q8H PRN (Reason: pain) Qty: 30 0RF tramadol 50 mg tablet 50 mg PO Q8H PRN (Reason: pain) Qty: 10 0RF ondansetron 4 mg tablet,disintegrating 4 mg PO Q8H PRN (Reason: nausea and vomiting) Qty: 10 0RF Did you review [place] LABEL [employer]INTER for ALL controlled substances?: No Discussed opioids are addictive and Narcan is available by prescription or from pharmacy.: No Condition: Stable
== END 2023-01-04 13:55 | disposition home or self-care (01) | DRG 386 ==
LOC: ED 10:20 → MEDSURG B 12:56
PROVIDERS: ADMIT Hospitalist; ATTEND Nurse Practitioner Family
DX: N17.9 Acute kidney failure, unspecified; K21.9 Gastro-esophageal reflux disease without esophagitis; R11.0 Nausea; E87.6 Hypokalemia; Z20.822 Contact with and (suspected) exposure to COVID-19; E87.21 Acute metabolic acidosis; K50.918 Crohn's disease, unspecified, with other complication; K56.7 Ileus, unspecified

== ENCOUNTER 2024-10-29 12:31 | Observation (INO) ==
[2024-10-29 13:03] VITALS: BP 125/71
[2024-10-29] MEDS: TORADOL IVP STA (13:08)
[2024-10-29 13:10] LABS: IMMATURE GRANULOCYTE # (AUTO) 0.2 (0.0-1.0); IMMATURE GRANULOCYTE % (AUTO) 1.3 % (0.0-5.0); RDW COEFFICIENT OF VARIATION 14.0 % (11.6-14.8)
[2024-10-29] MEDS: BENADRYL IVP STA (13:14)
--- NOTE | 2024-10-29 13:18 | ED.PDOC ---
General HPI ED Provider: Dr. WING COON DO Chief Complaint: Abdominal Pain Stated Complaint: 39-year-old white male well-known to this facility presents with complaints of abdominal pain. Patient has known Crohn's disease and is status post right hemicolectomy. He unfortunately has not seen GI for several years. He states today that he does have an appointment on 29 November with the GI doctor and Castro Goldman. He has been seen recently in this ED complaining of abdominal pain. CT was obtained without contrast and did not definitely document acute exacerbation of Crohn's. However today he presents complaining of abdominal pain and exam is concerning for rebound tenderness w/ decreased bowel sounds. He notes diarrhea. He does not complain of nausea and vomiting. He denies fevers or chills. He also denies any recent illnesses with headache, runny nose, sore throat, pain on urination, rashes, sores, unilateral weakness, vision changes, or swelling in feet or legs. No chest pain, cough, chest congestion or shortness of breath. No cough. Patient often request pain medication when in ED. He is again requesting pain meds today. Exam is consistent with acute exacerbation of Crohn's and given recent visit with evidence of dehydration and abnormal electrolytes, complete workup will be done today. Time Seen by Provider: 10/29/24 12:50 Mode of Arrival: Walk-In Information Source: Patient Exam Limitations: No limitations Primary Care Provider: LANNY THOMSON Nursing and Triage Documentation Reviewed and Agree: Yes Opioid Naive vs. Tolerant Does Patient Take Opioids?: Yes Is Patient Opioid Naive?: No What is Opioid Naive?: *Opioid Naive implies the patient is not already taking opioids or not chronically receiving opioids on a daily basis. *PRN dosing is not "usually" associated with tolerance. *Patients are at higher risk of over-sedation and aspiration. Is Patient Opioid Tolerant?: Yes What is Opioid Tolerant?: *Opioid Tolerance implies less than the expected response to an opioid. *Acquired tolerance is defined by the patient taking 60mg of oral morphine daily (or equianalgesic dose of another opioid) for 1 week or more. *Often associated with chronic pain. *May take more than usual dose to achieve desired pain control. Review of Systems Review Of Systems Constitutional: Denies Chills or Fever Eyes: Denies Vision change Ears, Nose, Mouth, Throat: Denies Nose discharge or Throat pain Respiratory: Denies Cough or Shortness of Breath Cardiac: Denies Chest pain or Irregular heart rate GI: Reports Abdominal pain and Diarrhea; Denies Nausea or Vomiting : Denies Burning or Dysuria Musculoskeletal: Denies Back pain Neurological: Denies Headache or Weakness PFSH PFS Medical History Chronic pancreatitis K86.1 - Other chronic pancreatitis (ICD-10) Calculus of kidney 2013 & 2019; 05/06/2019 Flat Plate abd. neg for stones N20.0 - Calculus of kidney (ICD-10) Hypothyroidism 2013 Hx ; 05/07/2019 no tx needed per PCP E03.9 - Hypothyroidism, unspecified (ICD-10) Crohns disease 2007 K50.90 - Crohn's disease, unspecified, without complications (ICD-10) Family History Mother Mitral valve problem Ulcerative colitis FATHER Cancer Skin Cancer SISTER Anxiety Social History Smoking and tobacco status: Never smoker Alcohol intake: never Substance use type: does not use Lizzy/advent: OTHER Special lizzy needs: No Agree to transfusion: Yes Adopted: No Caregiver/support person: No Household members: other Other Household Members: sister, and her 2 children Housing: house Marital status: S SINGLE Lives independently: Yes Number of children: 0 Highest education level completed: high school graduate Financial difficulty paying for basics: not very hard service: No Current occupational status: disabled Current occupation: on disability due to Chron's disease Pets and animals: No Leisure activites: exercise History of recent travel: No Sexually active: Yes Seatbelt use: always Drives intoxicated or rides with intoxicated [employer]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 Patient primarily holding right lower quadrant of abdomen. He is alert and oriented. Well-nourished well-developed.) Ill-appearing: None Pain Distress: Moderate Eyes: Reports DISHA, EOMI, Conjunctiva clear and Other (Sclera anicteric); Denies Conjunctiva inflammed ENT: Reports Ears normal, Nose normal and Oropharynx normal; Denies Rhinorrhea, Erythema, Exudate or Dry mucosa Neck: Supple Respiratory: Reports Airway patent, Breath sounds clear, Breath sounds equal and Respirations nonlabored; Denies Crackles, Rhonchi, Wheezes or Retractions Cardiovascular: Reports RRR and Pulses normal GI/: Reports Bowel sounds hypoactive and Other (Abdomen is tense with marked voluntary guarding. Positive rebound tenderness bilateral lower quadrants. Bowel sounds are hypoactive. Large midline scar with additional scarring on the right lower abdomen consistent with preanastomosis of colostomy. Not evaluated for masses or megaly due to guard) Musculoskeletal: Reports Normal strength, ROM intact and No edema Skin: Reports Warm, Dry and Normal color Neurological: Reports Motor intact, Reflexes intact, Alert and Other (No facial asymmetries and gait is normal.) Psychiatric: Reports Affect appropriate, Mood appropriate and Anxious Interpretation Radiology Interpretation Radiology Interpretation By: Radiologist (CT abdomen pelvis with contrast read by radiology. Positive for acute exacerbation Crohn's and enterocolitis. Also RLQ abdominal wall adhesion of the small bowel) Radiology Results: Positive Physician Progress Note Physician Progress Note: 39-year-old white male well-known to this facility presents with complaints of abdominal pain. Patient has known Crohn's disease and is status post right hemicolectomy. He unfortunately has not seen GI for several years. He states today that he does have an appointment on 29 November with the GI doctor and Castro Goldman. He has been seen recently in this ED complaining of abdominal pain. CT was obtained without contrast and did not definitely document acute exacerbation of Crohn's. However today he presents complaining of abdominal pain and exam is concerning for rebound tenderness w/ decreased bowel sounds. He notes diarrhea. He does not complain of nausea and vomiting. He denies fevers or chills. Given patient's documented history of Crohn's with previous abdominal surgery for same and recurrent visits recently for abdominal pain, in my best medical opinion complete workup is indicated. Will proceed with labs and CT abdomen pelvis with contrast. Will reevaluate after this. Meantime we will provide IV fluids and start with Toradol for pain. Additional meds will be given based on results. Labs are reviewed. Patient does have a mild increased WBC. No definite left shift. In addition magnesium is low. CT scan reveals findings consistent with acute exacerbation of Crohn's disease and acute enterocolitis. 1550 p.m. patient discussed with nurse practitioner Altaf Coburn hospitalist. She agrees to admit for observation and additional steroids and treatment. Patient advised pain medication will be given one-time in ED. Continuing pain medications will be dependent on nurse catrachito Coburn and admitting physician. Patient verbalizes understanding. Patient admitted to observation nonmonitored bed. All EKG and plain radiographs are reviewed viewed and interpreted by this provider independently. CT scans are reviewed and interpreted by radiology. Minors or disabled patients accompanied by guardians have had appropriate consent obtained for testing and treatment. This note is created using voice dictation and may contain spelling and/or contextual grammatical errors related to voice dictation. Course Course 10/29/24 13:01 10/29/24 13:01 Orders, Labs, Meds: Lab Review 10/29/24 13:01 WBC 13.74 H RBC 3.82 L Hgb 11.2 L Hct 34.7 L MCV 90.8 MCH 29.3 MCHC 32.3 RDW Coeff of Svitlana 14.0 Plt Count 329 Immature Gran % (Auto) 1.3 Neut % (Auto) 68.2 Lymph % (Auto) 22.3 [place] % (Auto) 6.4 Eos % (Auto) 1.5 Baso % (Auto) 0.3 Neut # (Auto) 9.4 H Lymph # (Auto) 3.1 [place] # (Auto) 0.9 Eos # (Auto) 0.2 Baso # (Auto) 0.0 Immature Gran # (Auto) 0.2 Sodium 138.0 Potassium 3.50 Chloride 106.0 Carbon Dioxide 20.0 L Anion Gap 15.50 BUN 10.0 Creatinine 1.00 Estimated GFR (MDRD) 82.00 BUN/Creatinine Ratio 10.00 Glucose 127.0 H Calcium 8.70 Magnesium 1.30 L Total Bilirubin 0.10 L AST 17.0 ALT 15.0 Alkaline Phosphatase 69.0 Total Protein 6.70 Albumin 3.70 Globulin 3.00 Albumin/Globulin Ratio 1.23 Orders Category Date Time Status ADMIT OBSERVATION [PLACE PATIENT OBSERVATION] .TO ADMISSION 10/29/24 15:53 Completed MEDSURG (NON-MONITORED BED) NPO REMINDER: IMAGING ONCE CARE 10/29/24 13:05 Completed CBC W/ AUTO DIFF Stat LAB 10/29/24 13:01 Completed CMP [COMPREHENSIVE METABOLIC PANEL] Stat LAB 10/29/24 13:01 Completed MAGNESIUM Stat LAB 10/29/24 13:01 Completed Diphenhydramine Inj [Benadryl] Meds 10/29/24 13:10 Discontinued 25 mg IVP ONCE STA Diphenhydramine Inj [Benadryl] 25 mg Meds 10/29/24 13:16 Discontinued 0.9 % Sodium Chloride [Sodium Chloride 100Ml] 100 ml IV ONCE Iohexol [Omnipaque 350 mg/ml 100Ml] Meds 10/29/24 13:40 Discontinued 100 ml IVP ONCE ONE Ketorolac Tromethamine [Toradol] Meds 10/29/24 13:01 Discontinued 30 mg IVP ONCE STA Methylprednisolone Sod Succ/Pf [Solu-Medrol 125 mg] Meds 10/29/24 14:37 Discontinued 125 mg IVP ONCE ONE Methylprednisolone Sod Succ/Pf [Solu-Medrol 125 mg] 125 Meds 10/29/24 14:31 Discontinued mg 0.9 % Sodium Chloride [Sodium Chloride] 50 ml IV ONCE Metronidazole [Flagyl] Meds 10/29/24 14:50 Discontinued 500 mg PO ONCE STA Morphine Sulfate [Morphine 4 mg/ml Syringe] Meds 10/29/24 15:52 Discontinued 4 mg IVP ONCE STA Sodium Chloride 0.9% [Sodium Chloride] 1,000 ml Meds 10/29/24 14:50 Discontinued IV BOLUS Sodium Chloride 0.9% [Sodium Chloride] 1,000 ml Meds 10/29/24 16:[address] ABDOMEN/PELVIS W CONTRAST Stat RADS 10/29/24 13:05 Completed Medications Discontinued Medications Generic Name Dose Route Start Last Admin Trade Name Freq PRN Reason Stop Dose Admin Acetaminophen 650 mg 10/29/24 18:02 Acetaminophen 325 Mg Tablet PO Q4H PRN Mild Pain Diphenhydramine HCl 25 mg 10/29/24 13:10 10/29/24 13:14 Diphenhydramine Inj 50 Mg/Ml Vial IVP 10/29/24 13:11 25 mg ONCE STA Administration Famotidine 20 mg 10/29/24 21:00 Famotidine Inj 20 Mg/2 Ml Vial IVP Q12HR JOSE Diphenhydramine HCl 25 mg/ 100.5 mls @ 200 mls/hr 10/29/24 13:16 10/29/24 13:19 Sodium Chloride IV 10/29/24 13:46 Not Given ONCE STA Methylprednisolone Sodium 52 mls @ 100 mls/hr 10/29/24 14:31 10/29/24 14:38 Succinate 125 mg/ Sodium IV 10/29/24 15:02 Not Given Chloride ONCE STA Sodium Chloride 1,000 mls @ 1,000 mls/hr 10/29/24 14:50 10/29/24 16:05 Sodium Chloride IV 10/29/24 15:49 Infused BOLUS ONE Infusion Sodium Chloride 1,000 mls @ 1,000 mls/hr 10/29/24 16:02 10/29/24 17:19 Sodium Chloride IV 10/29/24 17:01 Not Given BOLUS STA Lactated Ringer's 1,000 mls @ 75 mls/hr 10/29/24 18:30 10/29/24 19:55 Lactated Ringers IV Infused .[id number] JOSE Infusion Iohexol 100 ml 10/29/24 13:40 10/29/24 13:42 Iohexol 350 Mg/Ml 100ml IVP 10/29/24 13:41 100 ml ONCE ONE Administration Ketorolac Tromethamine 30 mg 10/29/24 13:01 10/29/24 13:08 Ketorolac Tromethamine 60 Mg/2 Ml Vial IVP 10/29/24 13:02 30 mg ONCE STA Administration Methylprednisolone Sodium Succinate 125 mg 10/29/24 14:37 10/29/24 14:41 Methylprednisolone Sod Succ/Pf 125 Mg/2 Ml Vial IVP 10/29/24 14:38 125 mg ONCE ONE Administration Methylprednisolone Sodium Succinate 60 mg 10/30/24 09:00 Methylprednisolone Sod Succ/Pf 40 Mg/Ml Vial IVP DAILY JOSE Metoclopramide HCl 5 mg 10/29/24 18:02 10/29/24 18:35 Metoclopramide Hcl 10 Mg/2 Ml IVP 5 mg Q6H PRN Administration Nausea / Vomiting Metronidazole 500 mg 10/29/24 14:50 10/29/24 15:02 Metronidazole 250 Mg Tablet PO 10/29/24 14:51 500 mg ONCE STA Administration Morphine Sulfate 4 mg 10/29/24 15:52 10/29/24 17:22 Morphine Sulfate 4 Mg/Ml Syringe IVP 10/29/24 15:53 4 mg ONCE STA Administration Ondansetron HCl 4 mg 10/29/24 18:02 Ondansetron Hcl/Pf 4 Mg/2 Ml Sdv IVP Q6H PRN Nausea / Vomiting Pantoprazole Sodium 40 mg 10/29/24 18:05 10/29/24 18:44 Pantoprazole Sodium 40 Mg Vial IVP 40 mg DAILY JOSE Administration Vital Signs: Temp Pulse Resp BP Pulse Ox 10/29/24 12:56 98.1 F 120 H 20 125/71 99 Discharge Plan Discharge Patient Disposition: PLACED OBSERVATION Did you review [place] OBSTETRICS/GYNECOLOGY NURSE for ALL controlled substances?: No ED Provider: WING COON Condition: Stable
[2024-10-29] MEDS: BENADRYL 25 MG in SODIUM CHLORIDE 100ML 100 ML IV STA (13:19)
[2024-10-29 13:23] LABS: CREATININE 1.0 mg/dL (0.60-1.10)
[2024-10-29] MEDS: OMNIPAQUE 350 MG/ML 100ML IVP ONE (13:42)
--- NOTE | 2024-10-29 14:12 | CT ---
EXAM: CT ABDOMEN/PELVIS WITH CONTRAST HISTORY: Abdominal pain with Crohn disease COMPARISON: CT abdomen/pelvis for 10/25/2024 TECHNIQUE: Multi-slice postcontrast transaxial helical images are acquired through the abdomen and pelvis with coronal and sagittal reconstructed images. All CT scans are performed using dose optimization techniques as appropriate to the performed exam and includes at least one of the following: Automated exposure control, adjustment of the mA and/or kV according to size, and the use of iterative reconstruction technique. CONTRAST: 100 mL Omnipaque-350 IV FINDINGS: Lung bases: The lung bases are clear. Liver: There is a small hypodensity hepatic segment for be measuring 0.5 cm that is to small to characterize but probably represents a simple cyst. The hepatic attenuation is otherwise normal. The portal and hepatic veins are patent. Gallbladder/bilary tree: The gallbladder is contracted. There is no biliary dilatation. Pancreas: Normal. Adrenal glands: Normal. Spleen: Normal. Kidneys: There are multiple small probable simple acquired bilateral renal cysts, many of which are too small to characterize with accuracy. Simple bilateral renal cysts are also noted. No suspicious renal masses or hydroureteronephrosis. Retroperitoneum: Normal. Peritoneum: There are multiple sub centimeter lymph nodes within the mesentery. A lymph node in the right mid abdominal mesentery is 0.9 cm in short axis on axial number 105. No free air or ascites. Bowel: A right hemicolectomy has been performed with reanastomosis. Small bowel loops have marked mucosal hyperemia in the right side of the abdomen. Small bowel loops are in close apposition of the ventral abdominal wall in the right hemiabdomen suggesting adhesions. No transition point is appreciated. There is fluid throughout the large bowel and rectum. Pelvis: Normal. Addominal wall/bones: Normal. IMPRESSION: - Findings compatible with active Crohn's enterocolitis and diarrhea. - Probable reactive lymphadenopathy within the mesentery. - Small bowel adhesions suggested in the right hemiabdomen. - Multiple simple acquired renal cysts, many of which are too small to characterize. - Probable simple hepatic cysts. . All CT scans are performed using dose optimization techniques as appropriate to the performed exam and include at least one of the following: Automated exposure control, adjustment of the mA and/or kV according to size, and the use of iterative reconstruction technique.
[2024-10-29] MEDS ORDERED: SOLU-MEDROL 125 MG 125 MG in SODIUM CHLORIDE 50 ML IVP STA (14:34)
[2024-10-29] MEDS: SOLU-MEDROL 125 MG 125 MG in SODIUM CHLORIDE 50 ML IV STA (14:38)
[2024-10-29] MEDS: SOLU-MEDROL 125 MG IVP ONE (14:41)
[2024-10-29] MEDS: SODIUM CHLORIDE 1,000 ML IV ONE (15:02)
[2024-10-29] MEDS: FLAGYL PO STA (15:02)
[2024-10-29] MEDS: SODIUM CHLORIDE 1,000 ML IV STA (17:19)
[2024-10-29] MEDS: MORPHINE 4 MG/ML SYRINGE IVP STA (17:22)
[2024-10-29] MEDS ORDERED: TYLENOL PO PRN (18:02)
[2024-10-29] MEDS ORDERED: ZOFRAN SDV IVP PRN (18:02)
[2024-10-29 18:22] VITALS: PULSE 102; RESP 24; TEMP 98.4; BMI 22.9
[2024-10-29] MEDS: REGLAN IVP PRN (18:35)
[2024-10-29] MEDS: PROTONIX IVP SCH (18:44)
[2024-10-29] MEDS: LACTATED RINGERS 1,000 ML IV SCH (18:47)
--- NOTE | 2024-10-29 19:50 | AMA ---
IP AMA Note Reason for Admission Reason for Admission: Crohn's Entercolitis Treatment Plan/Noncompliance by Patient Treatment Plan/Noncompliance by Patient: Patient had specific requests for dilaudid Q4H IVP. This provider did not warrant the need for high dose pain medication. Other medications had been ordered to treat patient's condition. Patient decided to sign out AMA. He is a frequent patient in the ER requesting opiates. Plan to treat above condition with IV steroids, protonix, pepcid, and reglan and zofran prn. Review of any systems/labs/medication Review of Systems, Labs, etc. before pt left: EXAM: CT ABDOMEN/PELVIS WITH CONTRAST HISTORY: Abdominal pain with Crohn disease COMPARISON: CT abdomen/pelvis for 10/25/2024 TECHNIQUE: Multi-slice postcontrast transaxial helical images are acquired through the abdomen and pelvis with coronal and sagittal reconstructed images. All CT scans are performed using dose optimization techniques as appropriate to the performed exam and includes at least one of the following: Automated exposure control, adjustment of the mA and/or kV according to size, and the use of iterative reconstruction technique. CONTRAST: 100 mL Omnipaque-350 IV FINDINGS: Lung bases: The lung bases are clear. Liver: There is a small hypodensity hepatic segment for be measuring 0.5 cm that is to small to characterize but probably represents a simple cyst. The hepatic attenuation is otherwise normal. The portal and hepatic veins are patent. Gallbladder/bilary tree: The gallbladder is contracted. There is no biliary dilatation. Pancreas: Normal. Adrenal glands: Normal. Spleen: Normal. Kidneys: There are multiple small probable simple acquired bilateral renal cysts, many of which are too small to characterize with accuracy. Simple bilateral renal cysts are also noted. No suspicious renal masses or hydroureteronephrosis. Retroperitoneum: Normal. Peritoneum: There are multiple sub centimeter lymph nodes within the mesentery. A lymph node in the right mid abdominal mesentery is 0.9 cm in short axis on axial number 105. No free air or ascites. Bowel: A right hemicolectomy has been performed with reanastomosis. Small bowel loops have marked mucosal hyperemia in the right side of the abdomen. Small bowel loops are in close apposition of the ventral abdominal wall in the right hemiabdomen suggesting adhesions. No transition point is appreciated. There is fluid throughout the large bowel and rectum. Pelvis: Normal. Addominal wall/bones: Normal. IMPRESSION: - Findings compatible with active Crohn's enterocolitis and diarrhea. - Probable reactive lymphadenopathy within the mesentery. - Small bowel adhesions suggested in the right hemiabdomen. - Multiple simple acquired renal cysts, many of which are too small to characterize. - Probable simple hepatic cysts. Discharge Disposition Discharge Disposition: Patient left AMA at 1999. Patient's statement as to reason for leaving (if applicable): requesting dilaudid for pain medication - provider not willing to prescribe.
--- NOTE | 2024-10-29 19:51 | DCSUM ---
Admission Date Admission Date: 10/29/24 Discharge Date Discharge Date: 10/29/24 Admission Diagnosis Admission Diagnosis: Crohn's Entercolitis Discharge Diagnosis Discharge Diagnosis: Crohn's Entercolitis Hospital Provider Hospital Provider: OLIVIA BARBOZA, [facility] Primary Care Physician Primary Care Physician: LANNY THOMSON Summary of History and Physical Summary of History and Physical: See IP AMA note. Patient was not seen by this provider due to after hours admission. Hospital Course Vital Signs: Most Recent Vital Signs Temperature 98.4 F 10/29/24 18:02 Temperature Source Temporal Artery Scan 10/29/24 18:02 Temperature Source Infrared 10/29/24 12:56 Pulse Rate 102 H 10/29/24 18:02 Respiratory Rate 24 H 10/29/24 18:02 Blood Pressure 125/71 10/29/24 12:56 Blood Pressure Left Arm 108/76 10/29/24 18:02 Blood Pressure Position Supine 10/29/24 18:02 O2 Sat by Pulse Oximetry 99 10/29/24 18:02 Oxygen Delivery Method Room Air 10/29/24 19:00 Height 5 ft 5 in 10/29/24 18:02 Weight 62.596 kg 10/29/24 18:02 Telemetry Heart Rate 71 05/21/21 10:07 Lab Results Last 24 Hours: 10/29/24 13:01 WBC 13.74 H RBC 3.82 L Hgb 11.2 L Hct 34.7 L MCV 90.8 MCH 29.3 MCHC 32.3 RDW Coeff of Svitlana 14.0 Plt Count 329 Immature Gran % (Auto) 1.3 Neut % (Auto) 68.2 Lymph % (Auto) 22.3 [place] % (Auto) 6.4 Eos % (Auto) 1.5 Baso % (Auto) 0.3 Neut # (Auto) 9.4 H Lymph # (Auto) 3.1 [place] # (Auto) 0.9 Eos # (Auto) 0.2 Baso # (Auto) 0.0 Immature Gran # (Auto) 0.2 Sodium 138.0 Potassium 3.50 Chloride 106.0 Carbon Dioxide 20.0 L Anion Gap 15.50 BUN 10.0 Creatinine 1.00 Estimated GFR (MDRD) 82.00 BUN/Creatinine Ratio 10.00 Glucose 127.0 H Calcium 8.70 Magnesium 1.30 L Total Bilirubin 0.10 L AST 17.0 ALT 15.0 Alkaline Phosphatase 69.0 Total Protein 6.70 Albumin 3.70 Globulin 3.00 Albumin/Globulin Ratio 1.23 Discharge Instructions Discharge Planning: Discharge Planning > 40 minutes If patient is discharged with left ventricular systolic dysfunction: na Discharged with a beta obed? [] If no, why not? [] Discharged with an saw/arb? [] If no, why not? [] Discharge Medications: Medications at Discharge (Home Meds & RX) famotidine 20 mg tablet 20 mg PO BID 09/06/21 multivitamin with minerals-folic acid 200 mcg chewable tablet (Multivitamin Gummies) 1 tab PO DAILY 12/13/21 tramadol 50 mg tablet 50 mg PO Q6H PRN pain #14 tabs 01/04/23 ketorolac 10 mg tablet 10 mg PO Q8H PRN pain 5 days #15 tabs 10/25/24 magnesium 250 mg tablet 250 mg PO BID 7 days #14 tabs 10/25/24 potassium chloride 20 mEq tablet,extended release (K-Tab) 20 meq PO BID 7 days #14 tabs 10/25/24 Discharge Plan Discharge Discharge Orders: Discharge Patient (ONCE); Ordered 10/29/24 Ordered By: FIFI ALONZO Patient Disposition: AMA Prescriptions: No Action multivit with min-folic acid [Multivitamin Gummies] 200 mcg Tablet,Chewable 1 tab PO DAILY tramadol 50 mg tablet 50 mg PO Q6H PRN (Reason: pain) Qty: 14 0RF ketorolac 10 mg tablet 10 mg PO Q8H MDD 30 mg PRN (Reason: pain) 5 Days Qty: 15 0RF Rx Instructions: maximum total duration of 5 days from all oral, intranasal, or parenteral formulations potassium chloride [K-Tab] 20 mEq tablet extended release 20 meq PO BID 7 Days Qty: 14 0RF magnesium 250 mg tablet 250 mg PO BID 7 Days Qty: 14 0RF famotidine 20 mg Tablet 20 mg PO BID Did you review [place] [employer] CIRCULATION DEPARTMENT CHIEF for ALL controlled substances?: No Discussed opioids are addictive and Narcan is available by prescription or from pharmacy.: No
[2024-10-29] MEDS ORDERED: PEPCID IVP SCH (21:00)
[2024-10-30] MEDS ORDERED: SOLU-MEDROL 40 MG IVP SCH (09:00)
== END 2024-10-29 19:51 | disposition left against medical advice (07) ==
LOC: ED 12:31 → MEDSURG B 12:31
PROVIDERS: ADMIT Hospitalist; ATTEND Nurse Practitioner Family